=== PATIENT | female | born 1945 | race Caucasian/White ===

== ENCOUNTER 2017-11-06 10:32 | Emergency (ER) | payer MEDICARE ==
[~2017-11-06] VITALS: Ht 160 cm; Wt 56.7 kg
[~2017-11-06 10:32] MED LIST: ASPI-587 PO; BUPR200T PO; CALC-817 PO; CYAN100015 SL; DCS100C PO; DEXL60CA PO; DICY20TA10 PO; FISH1CAP15 PO; HYDR50TA3 PO; MTP50T PO; MULT-974 PO; OMEP20CA12 PO; PRAV20TA PO; PYRI100T2 PO; SIMV80TA3 PO; VITA400T9 PO
[2017-11-06] MEDS ORDERED: ASPIRIN 81 MG CHEW (CHILDREN'S ASA) PO ONE (10:45)
--- NOTE | 2017-11-06 11:02 | ED Chest Pain ---
General Stated Complaint: CHEST DISCOMFORT WHEN BREATHING-LUNG Source: patient Exam Limitations: no limitations History of Present Illness Date Seen by Provider: Nov 06, 2017 Time Seen by Provider: 10:38 Initial Comments Here with report of right-sided chest pain that hurts with deep breathing and better with rest. Onset yesterday. States that she has a history of pleurisy in the past and this feels similar. Denies nausea, vomiting, sweating, fever or other concerns. Denies any recent injury. She takes aspirin daily but has not had it today. Does have known history of hypertension and high cholesterol and takes medicines for those. Timing/Duration: 1-2 days Severity/Quality: moderate, aching, sharp Location: other (right-sided chest anterior) Radiation: back (right-sided) Activities at Onset: none Prior CP/Workup: non-cardiac ASA po HYDROLOGIST: No NTG SL HYDROLOGIST: No Associated Symptoms: No abdominal pain, back pain, No fatigue, No fever/chills , No nausea/vomiting, shortness of breath, No weakness Allergies and Home Medications Allergies Coded Allergies: Penicillins (Unverified Allergy, Intermediate, ITCHING ALL OVER, 06/06/16) Sulfa (Sulfonamide Antibiotics) (Unverified Allergy, Unknown, ITCHINESS TO LEGS, 02/27/14) Home Medications Aspirin 81 Mg Tablet.dr, 81 MG PO 1900, (Reported) Bupropion Hcl 200 Mg Tablet.sa, 200 MG PO BID, (Reported) Calcium Carb & Cit/Vitamin D3 1 Each Tablet.er, 1 TAB PO BID, (Reported) 630MG/500IU Cyanocobalamin 1,000 Mcg Tab.subl, 1,000 MCG SL DAILY, (Reported) Dexlansoprazole 60 Mg Cap..bp, 60 MG PO DAILY, (Reported) Dicyclomine HCl 20 Mg Tablet, 20 MG PO TID, (Reported) Docusate Sodium 100 Mg Capsule, 200 MG PO 1900, (Reported) Fish Oil/Dha/Epa 1 Each Capsule, 1 CAP PO DAILY, (Reported) Metoprolol Tartrate 50 Mg Tablet, 25 MG PO BID, (Reported) Multivitamin 1 Each Tablet, 1 TAB PO DAILY, (Reported) Pyridoxine Hcl 100 Mg Tablet, 100 MG PO 1900, (Reported) Simvastatin 80 Mg Tablet, 80 MG PO 1900, (Reported) Vitamin E Mixed 400 Unit Tablet, 400 UNIT PO DAILY, (Reported) Patient Home Medication List Home Medication List Reviewed: Yes Review of Systems Constitutional: see HPI, No chills, No fever EENTM: No Symptoms Reported Respiratory: See HPI Cardiovascular: Chest Pain, Denies Edema Gastrointestinal: Denies Abdominal Pain, Denies Nausea, Denies Vomiting Genitourinary: No Symptoms Reported Musculoskeletal: see HPI, back pain, muscle pain Skin: No no symptoms reported Psychiatric/Neurological: No Symptoms Reported All Other Systems Reviewed Negative Unless Noted: Yes Past Odhhjpl-Ddbprp-Nxattm Hx Patient Social History Alcohol Use: Denies Use Recreational Drug Use: No Smoking Status: Never a Smoker Recent Foreign Travel: No Contact w/Someone Who Travel: No Recent Hopitalizations: No Immunizations Up To Date Tetanus Booster (TDap): Unknown Date of Pneumonia Vaccine: May 06, 2013 Date of Influenza Vaccine: Jun 02, 2016 Seasonal Allergies Seasonal Allergies: No Surgeries History of Surgeries: Yes Surgeries: Tubal Ligation Respiratory History of Respiratory Disorde: Yes Respiratory Disorders: Asthma, COPD Cardiovascular History of Cardiac Disorders: Yes Cardiac Disorders: High Cholesterol, Hypertension 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 System Hx 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 Disorders: No Sexually Transmitted Disease: Yes HIV/AIDS: No 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 Gastrointestinal History of Gastrointestinal Di: Yes Gastrointestinal Disorders: Gastroesophageal Reflux, Ulcer Musculoskeletal Musculoskeletal Disorders: Arthritis HEENT HEENT Disorders: Cataract Psychosocial Behavioral Health Disorders: Depression Blood Transfusions Adverse Reaction to a Blood Tr: No (N/A) Reviewed Nursing Assessment Reviewed/Agree w Nursing PMH: Yes Family Medical History Significant Family History: Stroke, Vascular Disease Physical Exam Vital Signs Vital Signs - First Documented Capillary Refill : General Appearance: No Apparent Distress, WD/WN HEENT: PERRL/EOMI, Pharynx Normal Neck: Non Tender, Supple Respiratory: Lungs Clear, Normal Breath Sounds Cardiovascular: No Murmur, Tachycardia Gastrointestinal: Non Tender, Soft Extremity: Normal Range of Motion, Non Tender Neurologic/Psychiatric: Alert, Oriented x3 Skin: Normal Color, Warm/Dry Progress/Results/Core Measures Results/Orders Lab Results Laboratory Tests Test 11/06/17 11:06 Range/Units White Blood Count 6.7 4.3-11.0 10^3/uL Red Blood Count 4.66 4.35-5.85 10^6/uL Hemoglobin 14.2 11.5-16.0 G/DL Hematocrit 42 35-52 % Mean Corpuscular Volume 90 80-99 FL Mean Corpuscular Hemoglobin 31 25-34 PG Mean Corpuscular Hemoglobin Concent 34 32-36 G/DL Red Cell Distribution Width 13.0 10.0-14.5 % Platelet Count 197 130-400 10^3/uL Mean Platelet Volume 10.4 7.4-10.4 FL Neutrophils (%) (Auto) 54 42-75 % Lymphocytes (%) (Auto) 35 12-44 % Monocytes (%) (Auto) 8 0-12 % Eosinophils (%) (Auto) 2 0-10 % Basophils (%) (Auto) 1 0-10 % Neutrophils # (Auto) 3.6 1.8-7.8 X 10^3 Lymphocytes # (Auto) 2.3 1.0-4.0 X 10^3 Monocytes # (Auto) 0.5 0.0-1.0 X 10^3 Eosinophils # (Auto) 0.2 0.0-0.3 10^3/uL Basophils # (Auto) 0.0 0.0-0.1 10^3/uL Prothrombin Time 12.2 12.2-14.7 SEC INR Comment 0.9 0.8-1.4 Activated Partial Thromboplast Time 30 24-35 SEC D-Dimer < 0.27 0.00-0.49 UG/ML Sodium Level 140 135-145 MMOL/L Potassium Level 3.9 3.6-5.0 MMOL/L Chloride Level 105 98-107 MMOL/L Carbon Dioxide Level 21 21-32 MMOL/L Anion Gap 13 5-14 MMOL/L Blood Urea Nitrogen 16 7-18 MG/DL Creatinine 1.05 0.60-1.30 MG/DL Estimat Glomerular Filtration Rate 52 BUN/Creatinine Ratio 15 Glucose Level 98 70-105 MG/DL Calcium Level 9.7 8.5-10.1 MG/DL Magnesium Level 2.3 1.8-2.4 MG/DL Total Bilirubin 1.0 0.1-1.0 MG/DL Aspartate Amino Transf (AST/SGOT) 24 5-34 U/L Alanine Aminotransferase (ALT/SGPT) 18 0-55 U/L Alkaline Phosphatase 90 40-136 U/L Myoglobin 38.8 10.0-92.0 NG/ML Troponin I < 0.30 <0.30 NG/ML Total Protein 8.0 6.4-8.2 GM/DL Albumin 4.5 3.2-4.5 GM/DL My Orders Orders - ANTONETTE ALMARAZ MD Cbc With Automated Diff (11/06/17 10:45) Magnesium (11/06/17 10:45) Chest 1 View, Ap/Pa Only (11/06/17 10:45) Ekg Tracing (11/06/17 10:45) Cardiac Profile 1 (11/06/17 10:45) Comprehensive Metabolic Panel (11/06/17 10:45) Myoglobin Serum (11/06/17 10:45) Protime With Inr (11/06/17 10:45) Partial Thromboplastin Time (11/06/17 10:45) O2 (11/06/17 10:45) Monitor-Rhythm Ecg Trace Only (11/06/17 10:45) Lipid Panel (11/07/17 06:00) Aspirin Chewable Tablet (Baby Aspirin Ch (11/06/17 10:45) Saline Lock/Iv-Start (11/06/17 10:45) Fibrin Degradation Products (11/06/17 10:45) Ketorolac Injection (Toradol Injection) (11/06/17 12:39) Prednisone Tablet (Deltasone Tablet) (11/06/17 12:45) Medications Given in ED Current Medications Medications Dose Ordered Sig/Saige Route Start Time Stop Time Status Last Admin Dose Admin Aspirin 324 mg ONCE ONCE PO 11/06/17 10:45 11/06/17 10:46 DC 11/06/17 11:27 324 MG Vital Signs/I&O Vital Sign - Last 12Hours 11/06/17 11/06/17 10:37 10:37 Temp 98.5 Pulse 111 Resp 16 B/P (MAP) 169/94 (119) Pulse Ox 98 O2 Delivery Room Air Room Air Progress Note : Progress Note Seen and evaluated. IV, labs, EKG and chest x-ray ordered. ASA 324 mg by mouth ordered. Monitor patient. 1240: Improved overall. Toradol 30 mg IV and prednisone 40 mg by mouth ordered. Discharged home with return precautions. Patient verbalize understanding instructions and agreement with plan. ECG Initial ECG Impression Date: Nov 06, 2017 Initial ECG Impression Time: 10:40 Initial ECG Rate: 99 Initial ECG Rhythm: Normal Sinus Comment Sinus rhythm with normal axis. Left atrial dramatic. No evidence of ST elevation OR. Similar to previous but rate increased to 27 February 2014. Interpreted by me. Diagnostic Imaging Diagonstic Imaging: Xray Plain Films/CT/US/NM/MRI: chest Comments VIA [facility], [facility]. [place], [place] NAME: VENECIA KUMAR [facility] REC#: [id number] PT STATUS: REG ER : 1945 PHYSICIAN: ANTONETTE ALMARAZ MD ADMIT DATE: 11/06/17/ER Draft Date of Exam:11/06/17 CHEST 1 VIEW, AP/PA ONLY INDICATION: Chest pain. COMPARISON: 02/27/2014. FINDINGS: A single frontal view of the chest demonstrates normal heart size and pulmonary vascularity. The lungs show scarring and/or atelectasis projecting over the left lower lung. Otherwise, the lungs are clear. No large pleural effusion or pneumothorax is seen. The visualized osseous structures show no acute abnormalities. IMPRESSION: No acute cardiopulmonary process. Dictated on workstation # [id number] Dict: 11/06/17 1201 Trans: 11/06/17 1206 [id number] Interpreted by: VAL TAVAREZ MD Electronically signed by: Departure Impression Impression: Primary Impression: Pleuritic chest pain Disposition: 01 HOME, SELF-CARE Condition: Improved Departure-Patient Inst. Decision time for Depature: 12:43 Referrals: [facility] (PCP/Family) Primary Care Physician Patient Instructions: Chest Pain (DC), Pleuritic Chest Pain (DC) Add. Discharge Instructions: Continue home medications as directed. Follow-up with your doctor this week for recheck and further evaluation. Return for worse pain, fever, vomiting, weakness, breathing problems or other concerns as needed. Scripts Prednisone (Prednisone) 20 Mg Tab 20 MG PO DAILY, #6 TAB 0 Refills Prov: ANTONETTE ALMARAZ MD 11/06/17 ANTONETTE ALMARAZ MD Nov 06, 2017 11:01
[2017-11-06 11:17] LABS: BASOPHILS % (AUTO) 1 % (0-10); EOSINOPHILS # (AUTO) 0.2 10^3/uL (0.0-0.3); EOSINOPHILS % (AUTO) 2 % (0-10); HEMATOCRIT 42 % (35-52); HEMOGLOBIN 14.2 G/DL (11.5-16.0); LYMPHOCYTES # (AUTO) 2.3 X 10^3 (1.0-4.0); LYMPHOCYTES % (AUTO) 35 % (12-44); MEAN CORPUSCULAR HEMOGLOBIN 31 PG (25-34); MEAN CORPUSCULAR HGB CONC 34 G/DL (32-36); MEAN CORPUSCULAR VOLUME 90 FL (80-99); MEAN PLATELET VOLUME 10.4 FL (7.4-10.4); MONOCYTES # (AUTO) 0.5 X 10^3 (0.0-1.0); MONOCYTES % (AUTO) 8 % (0-12); NEUTROPHILS # (AUTO) 3.6 X 10^3 (1.8-7.8); NEUTROPHILS % (AUTO) 54 % (42-75); PLATELET COUNT 197 10^3/uL (130-400); RED BLOOD COUNT 4.66 10^6/uL (4.35-5.85); WHITE BLOOD COUNT 6.7 10^3/uL (4.3-11.0)
[2017-11-06 11:30] LABS: INR 0.9 (0.8-1.4); PROTHROMBIN TIME PATIENT 12.2 SEC (12.2-14.7)
[2017-11-06 11:40] LABS: CALCIUM 9.7 MG/DL (8.5-10.1); CHLORIDE 105 MMOL/L (98-107); MAGNESIUM 2.3 MG/DL (1.8-2.4); POTASSIUM 3.9 MMOL/L (3.6-5.0); SODIUM 140 MMOL/L (135-145)
[2017-11-06 11:48] LABS: ALANINE AMINOTRANSFERASE 18 U/L (0-55); ALBUMIN 4.5 GM/DL (3.2-4.5); ALKALINE PHOSPHATASE 90 U/L (40-136); BUN/CREATININE RATIO 15; CARBON DIOXIDE 21 MMOL/L (21-32); CREATININE SERUM 1.05 MG/DL (0.60-1.30); GFR ESTIMATED 52; GLUCOSE 98 MG/DL (70-105)
[2017-11-06 11:55] LABS: MYOGLOBIN SERUM 38.8 NG/ML (10.0-92.0)
--- NOTE | 2017-11-06 12:06 | Diagnostic Imaging Report ---
INDICATION: Chest pain. COMPARISON: 02/27/2014. FINDINGS: A single frontal view of the chest demonstrates normal heart size and pulmonary vascularity. The lungs show scarring and/or atelectasis projecting over the left lower lung. Otherwise, the lungs are clear. No large pleural effusion or pneumothorax is seen. The visualized osseous structures show no acute abnormalities. IMPRESSION: No acute cardiopulmonary process. Dictated by: Dictated on workstation # [id number]
[2017-11-06] MEDS ORDERED: KETOROLAC 30 MG/ML VIAL IVP STA (12:39)
[2017-11-06] MEDS ORDERED: PRD20T PO (12:44)
[2017-11-06] MEDS ORDERED: predniSONE 20 MG TAB PO ONE (12:45)
[2017-11-06] MEDS ORDERED: ACETAMINOPHEN 500 MG TAB (TYLENOL) PO STA (12:46)
[2017-11-06 13:00] VITALS: BP 161/81
== END 2017-11-06 13:01 | disposition home or self-care (01) ==
LOC: EDUNIT# 10:32 → ER 10:34
DX: R07.81 Pleurodynia (principal); F32.9 Major depressive disorder, single episode, unspecified; E78.00 Pure hypercholesterolemia, unspecified; I10 Essential (primary) hypertension; J44.9 Chronic obstructive pulmonary disease, unspecified; K21.9 Gastro-esophageal reflux disease without esophagitis; Z87.19 Personal history of other diseases of the digestive system; Z90.710 Acquired absence of both cervix and uterus; Z79.52 Long term (current) use of systemic steroids; Z79.82 Long term (current) use of aspirin; Z98.51 Tubal ligation status; Z88.0 Allergy status to penicillin; Z88.2 Allergy status to sulfonamides
CPT/HCPCS: 36415; 71045; 80053; 83735; 83874; 84484; 85025; 85379; 85610; 85730; 93005; 93041

== ENCOUNTER 2017-11-17 13:31 | Emergency (ER) | payer MEDICARE ==
[~2017-11-17] VITALS: Ht 160 cm; Wt 56.7 kg
[~2017-11-17 13:31] MED LIST changes: +PRD20T PO
[2017-11-17 13:50] VITALS: BP_SYST 85
--- NOTE | 2017-11-17 13:57 | ED Headache ---
General Chief Complaint: Head/Cervical Problems Stated Complaint: PAIN IN BACK OF HEAD Source: patient, family Exam Limitations: no limitations History of Present Illness Date Seen by Provider: Nov 17, 2017 Time Seen by Provider: 13:55 Initial Comments This 72-year-old white female presents with complaint of occipital headache that has been intermittently present for the last 5 days. At the time of presentation to the emergency the patient is not having a headache. However she is concerned that she has an aneurysm similar to her sister's which required operative repair. Patient denies associated fever, chills, stiff neck, photophobia, sore throat, productive cough, associated nausea vomiting or diarrhea. Patient describes the intermittent occipital headache as sharp in nature, nonradiating, and moderate in severity. Patient's past medical history includes acid disease. She has had a history of hypertension. Both are well controlled with medications. The patient had a recent episode of pleurisy successfully treated with prednisone. Allergies and Home Medications Allergies Coded Allergies: Penicillins (Unverified Allergy, Intermediate, ITCHING ALL OVER, 06/06/16) Sulfa (Sulfonamide Antibiotics) (Unverified Allergy, Unknown, ITCHINESS TO LEGS, 02/27/14) Home Medications Aspirin 81 Mg Tablet.dr, 81 MG PO 1900, (Reported) Bupropion Hcl 200 Mg Tablet.sa, 200 MG PO BID, (Reported) Calcium Carb & Cit/Vitamin D3 1 Each Tablet.er, 1 TAB PO BID, (Reported) 630MG/500IU Cyanocobalamin 1,000 Mcg Tab.subl, 1,000 MCG SL DAILY, (Reported) Dexlansoprazole 60 Mg Cap.drAdalibp, 60 MG PO DAILY, (Reported) Dicyclomine HCl 20 Mg Tablet, 20 MG PO TID, (Reported) Docusate Sodium 100 Mg Capsule, 200 MG PO 1900, (Reported) Fish Oil/Dha/Epa 1 Each Capsule, 1 CAP PO DAILY, (Reported) Metoprolol Tartrate 50 Mg Tablet, 25 MG PO BID, (Reported) Multivitamin 1 Each Tablet, 1 TAB PO DAILY, (Reported) Prednisone 20 Mg Tab, 20 MG PO DAILY Prescribed by: ANTONETTE ALMARAZ on 11/06/17 1244 Pyridoxine Hcl 100 Mg Tablet, 100 MG PO 1900, (Reported) Simvastatin 80 Mg Tablet, 80 MG PO 1900, (Reported) Vitamin E Mixed 400 Unit Tablet, 400 UNIT PO DAILY, (Reported) Patient Home Medication List Home Medication List Reviewed: Yes Review of Systems Constitutional: No chills, No fever Eyes: Denies Blurred Vision, Denies Photophobia Ears, Nose, Mouth, Throat: denies ear pain, denies epistaxis Respiratory: No cough, No short of breath Cardiovascular: No chest pain, No palpitations Gastrointestinal: No abdominal pain, No diarrhea, No nausea Genitourinary: no symptoms reported Musculoskeletal: No back pain, No neck pain Skin: No change in color, No rash Psychiatric/Neurological: No Symptoms Reported Past Zkudcgu-Klkttv-Ohhxsx Hx Patient Social History 2nd Hand Smoke Exposure: No Recent Foreign Travel: No Contact w/Someone Who Travel: No Recent Hopitalizations: No Immunizations Up To Date Tetanus Booster (TDap): Unknown Date of Pneumonia Vaccine: May 06, 2013 Date of Influenza Vaccine: Jun 02, 2016 Seasonal Allergies Seasonal Allergies: No Past Medical History Surgeries: Yes Tubal Ligation Respiratory: Yes Asthma, COPD Cardiac: Yes High Cholesterol, Hypertension Neurological: Yes (MEMORY IS IMPAIRED) 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 Sexually Transmitted Disease: Yes HIV/AIDS: No Gastrointestinal: Yes Gastroesophageal Reflux, Ulcer Musculoskeletal: Yes Arthritis Endocrine: No Cataract Cancer: No Psychosocial: Yes Depression Integumentary: No Blood Disorders: No Adverse Reaction/Blood Tranf: No (N/A) Family Medical History Reviewed Nursing Family Hx Stroke, Vascular Disease Physical Exam Vital Signs Vital Signs - First Documented 11/17/17 13:50 Temp 97.1 Pulse 96 Resp 18 B/P (MAP) 85/ Pulse Ox 97 Capillary Refill : General Appearance: WD/WN, no apparent distress HEENT: normal ENT inspection Neck: non-tender, full range of motion, supple Cardiovascular: regular rate, rhythm, no edema Respiratory: chest non-tender, lungs clear, normal breath sounds Gastrointestinal: normal bowel sounds, non tender, soft Back: normal inspection Extremities: normal range of motion, non-tender, normal inspection Psychiatric: alert, oriented x 3 Crainal Nerves: normal hearing, normal speech, PERRL Motor/Sensory: no motor deficit, no sensory deficit Skin: normal color, warm/dry Progress/Results/Core Measures Lab Results Laboratory Tests Test 11/17/17 14:07 Range/Units White Blood Count 5.8 4.3-11.0 10^3/uL Red Blood Count 4.62 4.35-5.85 10^6/uL Hemoglobin 13.9 11.5-16.0 G/DL Hematocrit 42 35-52 % Mean Corpuscular Volume 92 80-99 FL Mean Corpuscular Hemoglobin 30 25-34 PG Mean Corpuscular Hemoglobin Concent 33 32-36 G/DL Red Cell Distribution Width 13.5 10.0-14.5 % Platelet Count 199 130-400 10^3/uL Mean Platelet Volume 10.3 7.4-10.4 FL Neutrophils (%) (Auto) 45 42-75 % Lymphocytes (%) (Auto) 44 12-44 % Monocytes (%) (Auto) 9 0-12 % Eosinophils (%) (Auto) 2 0-10 % Basophils (%) (Auto) 0 0-10 % Neutrophils # (Auto) 2.6 1.8-7.8 X 10^3 Lymphocytes # (Auto) 2.5 1.0-4.0 X 10^3 Monocytes # (Auto) 0.5 0.0-1.0 X 10^3 Eosinophils # (Auto) 0.1 0.0-0.3 10^3/uL Basophils # (Auto) 0.0 0.0-0.1 10^3/uL Erythrocyte Sedimentation Rate 4 0-30 MM/HR Sodium Level 141 135-145 MMOL/L Potassium Level 3.6 3.6-5.0 MMOL/L Chloride Level 104 98-107 MMOL/L Carbon Dioxide Level 26 21-32 MMOL/L Anion Gap 11 5-14 MMOL/L Blood Urea Nitrogen 15 7-18 MG/DL Creatinine 1.18 0.60-1.30 MG/DL Estimat Glomerular Filtration Rate 45 BUN/Creatinine Ratio 13 Glucose Level 113 H 70-105 MG/DL Calcium Level 9.5 8.5-10.1 MG/DL Total Bilirubin 0.7 0.1-1.0 MG/DL Aspartate Amino Transf (AST/SGOT) 25 5-34 U/L Alanine Aminotransferase (ALT/SGPT) 26 0-55 U/L Alkaline Phosphatase 79 40-136 U/L Total Protein 8.1 6.4-8.2 GM/DL Albumin 4.6 H 3.2-4.5 GM/DL My Orders Orders - DIANE BOYD MD Cbc With Automated Diff (11/17/17 13:54) Comprehensive Metabolic Panel (11/17/17 13:54) Erythrocyte Sedimentation Rate (11/17/17 13:54) Ct Head W Wo (11/17/17 13:53) Iohexol Injection (Omnipaque 350 Mg/Ml 1 (11/17/17 14:15) Sodium Chloride Flush (Catheter Flush Sy (11/17/17 14:15) Ns (Ivpb) (Sodium Chloride 0.9%) (11/17/17 14:15) Pharmacy Communication (Pharmacy Communi (11/17/17 14:06) Ns Iv 1000 Ml (Sodium Chloride 0.9%) (11/17/17 15:15) Medications Given in ED Current Medications Medications Dose Ordered Sig/Saige Route Start Time Stop Time Status Last Admin Dose Admin Iohexol 100 ml ONCE ONCE IV 11/17/17 14:15 11/17/17 14:16 DC 11/17/17 15:47 50 ML Sodium Chloride 10 ml NEEDED PRN IV 11/17/17 14:15 11/17/17 15:48 10 ML Sodium Chloride 250 ml ONCE ONCE IV 11/17/17 14:15 11/17/17 14:16 DC 11/17/17 15:48 80 ML Vital Signs/I&O 11/17/17 13:50 Temp 97.1 Pulse 96 Resp 18 B/P (MAP) 85/ Pulse Ox 97 Progress Note : Time: 16:21 Progress Note The patient's CT of the head was unremarkable. Patient was reassured. I asked that she follow-up with her caregiver at [facility] on Sunday. I recommended that she continue to use aspirin which is improved effective for her intermittent headache. Departure Impression Primary Impression: Headache Qualified Codes: R51 - Headache Disposition: 01 HOME, SELF-CARE Condition: Unchanged Departure-Patient Inst. Decision time for Depature: 16:22 Referrals: [facility] (PCP/Family) Primary Care Physician Patient Instructions: Headache, Adult (DC) Add. Discharge Instructions: Close follow-up with [facility] on Sunday. Aspirin, ibuprofen, Tylenol for headache. Return if any problems or questions. All discharge instructions reviewed with patient and/or family. Voiced understanding. DIANE BOYD MD Nov 17, 2017 13:56
[2017-11-17] MEDS ORDERED: NS 250 ML (IVPB) BAG IV ONE (14:15)
[2017-11-17] MEDS ORDERED: CATHETER FLUSH 10 ML SYR IV PRN (14:15)
[2017-11-17] MEDS ORDERED: IOHEXOL 350 MG/ML 100 ML (OMNIPAQUE 350) VIAL IV ONE (14:15)
[2017-11-17 14:19] LABS: BASOPHILS % (AUTO) 0 % (0-10); EOSINOPHILS # (AUTO) 0.1 10^3/uL (0.0-0.3); EOSINOPHILS % (AUTO) 2 % (0-10); HEMATOCRIT 42 % (35-52); HEMOGLOBIN 13.9 G/DL (11.5-16.0); LYMPHOCYTES # (AUTO) 2.5 X 10^3 (1.0-4.0); LYMPHOCYTES % (AUTO) 44 % (12-44); MEAN CORPUSCULAR HEMOGLOBIN 30 PG (25-34); MEAN CORPUSCULAR HGB CONC 33 G/DL (32-36); MEAN CORPUSCULAR VOLUME 92 FL (80-99); MEAN PLATELET VOLUME 10.3 FL (7.4-10.4); MONOCYTES # (AUTO) 0.5 X 10^3 (0.0-1.0); MONOCYTES % (AUTO) 9 % (0-12); NEUTROPHILS # (AUTO) 2.6 X 10^3 (1.8-7.8); NEUTROPHILS % (AUTO) 45 % (42-75); PLATELET COUNT 199 10^3/uL (130-400); RED BLOOD COUNT 4.62 10^6/uL (4.35-5.85); RED CELL DISTRIBUTION WIDTH 13.5 % (10.0-14.5); WHITE BLOOD COUNT 5.8 10^3/uL (4.3-11.0)
[2017-11-17 14:37] LABS: ALBUMIN 4.6 GM/DL (3.2-4.5); BILIRUBIN,TOTAL 0.7 MG/DL (0.1-1.0); CALCIUM 9.5 MG/DL (8.5-10.1); CREATININE SERUM 1.18 MG/DL (0.60-1.30); POTASSIUM 3.6 MMOL/L (3.6-5.0); TOTAL PROTEIN 8.1 GM/DL (6.4-8.2)
[2017-11-17 14:52] LABS: ERYTHROCYTE SEDIMENTATION RATE 4 MM/HR (0-30)
[2017-11-17] MEDS ORDERED: NS IV 1000 ML 1,000 ML IV SCH (15:15)
--- NOTE | 2017-11-17 16:01 | Diagnostic Imaging Report ---
PROCEDURE: CT head with and without contrast. TECHNIQUE: Multiple contiguous axial images were obtained through the brain before and after the administration of intravenous contrast. DATE: 11/17/2017. COMPARISON: None. INDICATION: 72-year-old female, left posterior head pain for three days. FINDINGS: The ventricles and cerebral spinal fluid spaces are of normal size and configuration for the patient's age. There is no mass effect or midline shift. There is no acute intracranial hemorrhage. There is no abnormal extra-axial fluid collection. The visualized portions of the paranasal sinuses, mastoid air cells and middle ears are well aerated. IMPRESSION: No identified acute intracranial abnormality. Dictated by: Dictated on workstation # [id number]
--- OUTSIDE RECORDS SUMMARY | 2017-11-18 09:59 | XMS REPORT ---
Author Author ROSEANN PIERRE [facility] eClinicalWorks Address Unknown Phone Unavailable Care Team Providers Care Latent Fingerprint Examiner Name Role Phone ROSEANN PIERRE CP Unavailable Allergies, Adverse Reactions, Alerts Substance Reaction Event Type Sulfamethoxazole-Trimethoprim Info Not Available Drug Allergy Penicillin V Potassium Info Not Available Drug Allergy Lisinopril chronic dry cough Drug Allergy Problems Problem Type Condition Code Onset Dates Condition Status Problem Unspecified hypertrophic and atrophic condition of skin 701.9 Active Problem Generalized anxiety disorder 300.02 Active Problem Esophageal reflux 530.81 Active Problem Rhinitis, unspecified type J31.0 Active Problem Need for prophylactic vaccination and inoculation, Influenza V04.81 Active Problem Memory loss R41.3 Active Problem Pure hyperglyceridemia 272.1 Active Problem Adjustment disorder with depressed mood 309.0 Active Problem Pain in joint, shoulder region 719.41 Active Problem Unspecified gastritis and gastroduodenitis without mention of hemorrhage 535.50 Active Assessment Memory loss R41.3 Active Assessment Hypoxemia R09.02 Active Assessment Rhinitis, unspecified type J31.0 Active Assessment Arthralgia, unspecified joint M25.50 Active Problem Colon polyp K63.5 Active Problem Gastroesophageal reflux disease with esophagitis K21.0 Active Problem Hypertriglyceridemia E78.1 Active Problem Cough 786.2 Active Problem Nocturnal hypoxia G47.34 Active Problem Unspecified disorder of kidney and ureter 593.9 Active Medications Medication Code System Code Instructions Start Date End Date Status Dosage Calcium Citrate + [facility] [address] Orally not defined Ventolin HFA [facility] [address]-76 108 (90 Base) MCG/ACT Inhalation every 6 hrs 2 puffs as needed Vitamin B-6 [facility] [address]14-[address] 200 MG Orally Once a day 1 tablet Dexilant [facility] [address]-61 60 MG Orally Once a day 1 capsule Stool Softener [facility] [address]-81 100 MG Orally Once a day 3 capsule as needed BuPROPion HCl (SR) [facility] [address]-77 200 MG Orally Twice a day 1 tablet Aricept [facility] [address]-18 5 mg Orally Once a day May 15, 2016 1 tablet at bedtime Vitamin B-12 [facility] [address]-38 500 MCG Orally Once a day 2 tablets Fish Oil [facility] [address]-34 1000 MG Orally Once a day 1 capsule Simvastatin [facility] 72656909164 80MG TAKE ONE TABLET BY MOUTH ONCE DAILY Metoprolol Tartrate [facility] [address]-42 25 MG Orally Twice a day 1 tablet Fluticasone Propionate [facility] [address]-70 50 MCG/ACT Nasally twice a day May 15, 2016 1 spray in each nostril Multivitamins [facility] 76[address]29 Orally not defined Aspir-81 [facility] [address]-11 81 MG Orally Once a day 1 tablet Procedures Procedure Coding System Code Date [facility] VISIT ESTABLISHED PATIENT CPT-4 G0467 May 15, 2016 Office Visit, Est Pt., Level 3 CPT-4 24481 May 15, 2016 MEASURE BLOOD OXYGEN LEVEL CPT-4 04636 May 15, 2016 Vital Signs Date/Time: May 15, 2016 Cardiac Monitoring Heart Rate 82 bpm Weight 143.3 lbs Height 64 in BMI 24.59 Index Oximetry 97 % Blood Pressure Diastolic 64 mmHg Blood Pressure Systolic 116 mmHg Results No Known Results Summary Purpose eClinicalWorks Submission
--- OUTSIDE RECORDS SUMMARY | 2017-11-18 09:59 | XMS REPORT ---
Author Author ROSEANN PIERRE Organization e[employer] Address Unknown Phone Unavailable Care Team Providers Care Attendant Self [employer] Store Name Role Phone ROSEANN PIERRE CP Unavailable Allergies No Known Allergies Problems Problem Type Condition Code Onset Dates [...] gastroduodenitis without mention of hemorrhage 535.50 Active Problem Colon polyp K63.5 Active Problem Gastroesophageal reflux disease with esophagitis K21.0 Active Problem Hypertriglyceridemia E78.1 Active Problem Cough 786.2 Active Problem Nocturnal hypoxia G47.34 Active Problem Unspecified disorder of kidney and ureter 593.9 Active Medications No Known Medications Results No Known Results Summary Purpose eClinicalWorks Submission
--- OUTSIDE RECORDS SUMMARY | 2017-11-18 09:59 | XMS REPORT ---
Author Author ROSEANN PIERRE [facility] eClinicalWorks Address Unknown Phone Unavailable Care Team Providers Care Cutter In Name Role Phone ROSEANN PIERRE CP Unavailable Allergies, Adverse Reactions, Alerts Substance Reaction Event Type Sulfamethoxazole-Trimethoprim Info Not Available Drug Allergy Penicillin V Potassium Info Not Available Drug Allergy Lisinopril chronic dry cough Drug Allergy Problems Problem Type Condition Code Onset Dates Condition Status Problem Cough 786.2 Active Problem Unspecified hypertrophic and atrophic condition of skin 701.9 Active Problem Unspecified disorder of kidney and ureter 593.9 Active Problem Pain in joint, shoulder region 719.41 Active Problem Unspecified gastritis and gastroduodenitis without mention of hemorrhage 535.50 Active Problem Need for prophylactic vaccination and inoculation, Influenza V04.81 Active Problem Generalized anxiety disorder 300.02 Active Problem Esophageal reflux 530.81 Active Problem Pure hyperglyceridemia 272.1 Active Problem Adjustment disorder with depressed mood 309.0 Active Assessment Fatigue, unspecified type R53.83 Active Assessment Gastroesophageal reflux disease without esophagitis K21.9 Active Assessment Acute idiopathic gout, unspecified site M10.00 Active Problem Nocturnal hypoxia G47.34 Active Assessment Hyperlipidemia, unspecified hyperlipidemia E78.5 Active Problem Colon polyp K63.5 Active Assessment Encounter for immunization Z23 Active Problem Gastroesophageal reflux disease with esophagitis K21.0 Active Medications Medication Code System Code Instructions Start Date End Date Status Dosage Bentyl [facility] 30877692603 20MG Orally Four times a day before meals and bedtime 1 tablet Multivitamins [facility] 89367-96693 Orally not defined Dexilant [facility] 04924522246 60[address] DR Orally Once a day 1 capsule Stool Softener [facility] [address]-33 100 MG Orally Once a day 3 capsule as needed Fish Oil [facility] [address]-14 1000 MG Orally Once a day 1 capsule Calcium Citrate + [facility] 04902-70570 Orally not defined BuPROPion HCl (SR) [facility] 16053476239 200MG TAKE ONE TABLET BY MOUTH TWICE DAILY Ventolin HFA [facility] [address]-95 108 (90 Base) MCG/ACT Inhalation every 6 hrs 2 puffs as needed Aspir-81 [facility] [address]-03 81 MG Orally Once a day 1 tablet Lorazepam [facility] [address]-35 0.5 mg December 08, 2013 by Oral route 2 times per day PRN take bid prn for anxiety Metoprolol Tartrate [facility] 22057854298 50MG TAKE ONE TABLET BY MOUTH TWICE DAILY Indocin [facility] [address]-25 25 MG Orally Three times a day Jun 16, 2015 Jun 23, 2015 1 capsule with food Hydrochlorothiazide [facility] 52863659307 50 MG Orally Once a day 1 tablet by Oral route 1 time per day Simvastatin [facility] 95993097224 80MG TAKE ONE TABLET BY MOUTH ONCE DAILY Procedures Procedure Coding System Code Date [facility] VISIT ESTABLISHED PATIENT CPT-4 G0467 Jun 16, 2015 Office Visit, Est Pt., Level 3 CPT-4 09972 Jun 16, 2015 [facility] NOBLL Jun 16, 2015 SINGLE IMMUNIZATION ADMIN CPT-4 02888 Jun 16, 2015 FLUARIX QUAD (3 & UP)-[employer]-2014 CPT-4 05564 Jun 16, 2015 VENIPUNCT, ROUTINE* CPT-4 66010 Jun 16, 2015 Vital Signs Date/Time: Jun 16, 2015 Temperature 98.0 F Weight 144 lbs Height 64 in BMI 24.71 Index Blood Pressure Diastolic 72 mmHg Blood Pressure Systolic 120 mmHg Cardiac Monitoring Heart Rate 78 bpm Results Name Result Date Reference Range Unit Abnormality Flag ROUTINE VENIPUNCTURE TSH Immunizations Vaccine Administration Date FLUARIX QUAD (3 & UP)-GSK-2014Jun 16, 2015 Summary Purpose eClinicalWorks Submission
--- OUTSIDE RECORDS SUMMARY | 2017-11-18 09:59 | XMS REPORT ---
Author Author ROSEANN PIERRE [facility] eClinicalWorks Address Unknown Phone Unavailable Care Team Providers Care Product Designer Name Role Phone ROSEANN PIERRE CP Unavailable [...] disorder with depressed mood 309.0 Active Problem Hypertriglyceridemia E78.1 Active Problem Nocturnal hypoxia G47.34 Active Problem Colon polyp K63.5 Active Assessment Forgetfulness R68.89 Active Problem Gastroesophageal reflux disease with esophagitis K21.0 Active Medications Medication Code System Code Instructions Start Date End Date Status Dosage Calcium Citrate + [facility] 22939-49546 Orally not defined Multivitamins [facility] 50968-84480 Orally not defined Simvastatin [facility] 28360736743 80MG TAKE ONE TABLET BY MOUTH ONCE DAILY Ventolin HFA [facility] [address]-79 108 (90 Base) MCG/ACT Inhalation every 6 hrs 2 puffs as needed BuPROPion HCl (SR) [facility] [address]-08 200 MG Orally Twice a day 1 tablet Vitamin B-6 [facility] 43430-14025 200 MG Orally Once a day 1 tablet Dexilant [facility] [address]-27 60 MG Orally Once a day 1 capsule Hydrochlorothiazide [facility] [address]-31 25 MG Orally Once a day 1 tablet Stool Softener [facility] [address]-79 100 MG Orally Once a day 3 capsule as needed Aspir-81 [facility] [address]-50 81 MG Orally Once a day 1 tablet Fish Oil [facility] [address]-55 1000 MG Orally Once a day 1 capsule Vitamin B-12 [facility] [address]-30 500 MCG Orally Once a day 2 tablets Metoprolol Tartrate [facility] [address]-29 25 MG Orally Twice a day 1 tablet Procedures Procedure Coding System Code Date Office Visit, Est Pt., Level 3 CPT-4 00538 February 10, 2016 [facility] VISIT ESTABLISHED PATIENT CPT-4 G0467 February 10, 2016 Vital Signs Date/Time: February 10, 2016 Cardiac Monitoring Heart Rate 68 bpm Weight 143.8 lbs Height 64 in BMI 24.68 Index Blood Pressure Diastolic 70 mmHg Blood Pressure Systolic 124 mmHg Results No Known Results Summary Purpose eClinicalWorks Submission
--- OUTSIDE RECORDS SUMMARY | 2017-11-18 09:59 | XMS REPORT ---
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9 Active 782573277 Problem Hyperlipidemia, unspecified hyperlipidemia E78.5 Active 72635146 ALLERGIES No Information ENCOUNTERS Encounter Location Date Diagnosis [place] [address] [place] [address]405- 1465 Nov, [place] [address] [place] [id number] [place] [address] 97240- 8275 14 Oct, 2017 Hypoxemia R09.02 and Fatigue, unspecified type R53.83 [place] [address] [place] [id number] [place] [address] 65222- 0742 12 Sep, 2017 Other chronic gastritis without hemorrhage K29.50 ; Gastroesophageal reflux disease without esophagitis K21.9 ; Hyperlipidemia, unspecified hyperlipidemia E78.5 and Arthralgia, unspecified joint M25.50 [place] [address] [address]- [address] Aug, Hypertriglyceridemia E78.1 [place] [address] [place] [id number] [place] [address] 54251- 2525 May, Anxiety F41.9 [place] [address] [place] [id number] [place] [address] 46779- 9158 Apr, Hyperlipidemia, unspecified hyperlipidemia E78.5 ; Gastroesophageal reflux disease without esophagitis K21.9 ; Forgetfulness R68.89 ; Essential hypertension I10 and Anxiety F41.9 [place] [address] [place] [id number] [place] [address] 20553- 6197 14 Apr, 2017 Hypertriglyceridemia E78.1 [place] [address] [place] [id number] [place] [address] 96493- 8307 30 Mar, 2017 Medicare annual wellness visit, subsequent Z00.00 ; Hyperlipidemia, unspecified hyperlipidemia E78.5 and Essential hypertension I10 [place] [address] [place] [id number] [place] [address] 72988- 0358 Mar, Forgetfulness R68.89 ; Fatigue, unspecified type R53.83 and Essential hypertension I10 [place] [address] [place] [id number] [place] [address] 92689- 1714 Mar, Primary osteoarthritis, 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 and Strain of left trapezius muscle, initial encounter S46.812A [place] [address] [place] [id number] [place] [address] 70193- 9395 Feb, Left wrist pain M25.532 [place] [address] [place] [id number] [place] [address] 95795- 0873 Feb, Left wrist pain M25.532 [place] [address] [place] [id number] [place] [address] 47780- 8683 December, Hypertriglyceridemia E78.1 ; Encounter for immunization Z23 ; Forgetfulness R68.89 and Fatigue, unspecified type R53.83 [place] [address] [place] [address] 52059- 2778 Jun, Forgetfulness R68.89 and Rhinitis, unspecified type J31.0 [place] [address] [place] [id number] [place] [address] 46501- 3069 May, [place] [address] [place] [id number] [place] [address] 12006- 1229 May, Hypoxemia R09.02 ; Memory loss R41.3 ; Arthralgia, unspecified joint M25.50 and Rhinitis, unspecified type J31.0 [place] [address] [place] [id number] [place] [address] 85078- 8532 Mar, Vertigo R42 ; Orthostatic hypotension I95.1 and Chronic gastritis without bleeding, unspecified gastritis type K29.50 [place] [address] [place] [id number] [place] [address] 37837- 8702 Feb, [place] [address] [place] [id number] [place] [address] 57413- 1500 Feb, Forgetfulness R68.89 [place] [address] [place] [id number] [place] [address] 92221- 1963 Jan, [place] [address] [place] [id number] [place] [address] 18433- 6507 Jan, Gastroesophageal reflux disease without esophagitis K21.9 ; Fatigue, unspecified type R53.83 ; Weakness R53.1 ; Forgetfulness R68.89 ; Hyperlipidemia, unspecified hyperlipidemia E78.5 and Hearing abnormally acute, unspecified laterality H93.239 [place] [address] [place] [id number] [place] [address] 33701- 4149 Oct, [place] [address] [place] [id number] [place] [address] 08752- 7724 Aug, Upper respiratory tract infection, unspecified type J06.9 [place] [address] [place] [id number] [place] [address] 61465- 6539 Aug, [place] [address] [place] [id number] [place] [address] 56781- 1416 Jun, Acute idiopathic gout, unspecified site M10.00 ; Encounter for immunization Z23 ; Hyperlipidemia, unspecified hyperlipidemia E78.5 ; Gastroesophageal reflux disease without esophagitis K21.9 and Fatigue, unspecified type R53.83 [place] [address] 32542- 7007 17 Jan, 2015 Esophageal reflux 530.81 and Irritable bowel syndrome 564.1 [place] [address] 66892- 0447 15 Jan, 2015 [place] [address] 05307- 7853 10 Jan, 2015 Gastritis 535.50 ; Hx of colonic polyp V12.72 and Positional vertigo 386.11 [place] [address] 62449- 7529 09 Jan, 2015 [place] [address] 01063- 9251 04 Jan, 2015 Dizziness 780.4 and Nausea & vomiting 787.01 [place] [address] 43303- 8863 Nov, [place] [address] 92880- 8600 Nov, [place] [address] 10689- 5138 Nov, [place] [address] [place] [id number] [place] [address] 21076- 3778 13 Nov, 2014 [place] [address] 22799- 4711 16 Oct, 2014 [place] [address] 23073- 8930 Oct, [place] [address] 68385- 4900 Oct, [place] [address] 15513- 4284 Aug, [facility] [place] [facility] [address] [id number] [place] [address]- 8846 Aug, [facility] [place] [facility] [address] [id number] [place] [address]- 1160 Aug, [facility] [place] [facility] [address] [id number] [place] [address]- 2874 Jul, [facility] [place] [facility] [address] [id number] [place] [address]- 6491 Jul, [facility] [place] [facility] [address] [id number] [place] [address]- 4182 Jul, [facility] [place] [facility] [address] [id number] [place] [address]- 9622 Jul, [facility] [place] [facility] [address] [id number] [place] [address]- 7478 Jul, [facility] [place] [facility] [address] [id number] [place] [address]- 5139 Jul, [facility] [place] [facility] [address] [id number] [place] [address]- 3574 Jul, [facility] [place] [facility] [address] [id number] [place] [address]- 2277 Jul, [facility] [place] [facility] [address] [id number] [place] [address]- 2124 Jul, [facility] [place] [facility] [address] [id number] [address]- 2544 Jul, [facility] [place] [facility] [address] [id number] [place] [address]- 6986 Jul, [facility] [place] [facility] [address] [id number] [place] [address]- 1123 Jun, [facility] [place] [facility] [address] [id number] [place] [address]- 4501 Jun, [facility] [place] [facility] [address] [id number] [place] [address]- 2282 Jun, [facility] [place] [facility] [address] [id number] [place] [address]- 2229 Jun, [facility] [place] [facility] [address] [id number] [place] [address]- 4374 17 Apr, 2014 [facility] [place] [facility] [address] [id number] [place] [address]- 7881 Apr, [facility] [place] [facility] [address] [id number] [place] [address]- 4856 Apr, [facility] [place] [facility] [address] [id number] [place] [address]- 5918 Apr, [facility] [place] [facility] [address] [id number] [place] [address]- 4269 Feb, [facility] [place] [facility] [address] [id number] [place] [address]- 2216 Feb, [facility] [place] [facility] [address] [id number] [place] [address]- 8079 Feb, [facility] [place] [facility] [address] [id number] [place] [address]- 1661 Feb, [facility] [place] [facility] [address] [id number] [place] [address]- 8370 Jan, [facility] [place] [facility] [address] [id number] [place] [address]- 6916 Jan, [facility] [place] [facility] [address] [id number] [place] [address]- 0662 Jan, [facility] [place] [facility] [address] [id number] [place] [address]- 2927 Jan, [facility] [place] [facility] [address] [id number] [place] [address]- 0416 December, [facility] [place] [facility] [address] [id number] [place] 9510 December, [facility] [place] [facility] [address] [id number] [place] [address]- 0132 December, [facility] [place] [facility] [address] [id number] [place] [address]- 5578 December, [facility] [place] [facility] [address] [id number] [place] [address]- 8479 December, [facility] [place] [facility] [address] [id number] [place] [address]- 8823 December, [facility] [place] [facility] [address] [id number] [place] [address]- 7180 Oct, [facility] [place] [facility] [address] [id number] [place] [address]- 1742 Oct, [facility] [place] [facility] [address] [id number] [place] [address]- 5327 Sep, [facility] [place] [facility] [address] [id number] [place] [address]- 6279 Sep, [facility] [place] [facility] [address] [id number] [place] [address]- 0245 Aug, [facility] [place] [facility] [address] [id number] [place] [address]- 9622 Aug, [facility] [place] [facility] [address] [id number] [place] [address]- 3069 Jul, [facility] [place] [facility] [address] [id number], [place] [address]- 0426 Jul, [facility] [place] [facility] [address] [id number] [place] [address]- 6353 May, [facility] [place] [facility] [address] [id number] [place] [address]- 2035 May, [facility] [place] [facility] [address] [id number], [place] [address]- 8407 May, [facility] [place] [facility] [address] [id number], [place] [address]- 6443 Apr, [facility] [address] [id number] [place] [address]- 4671 Feb, [facility] [address] [id number] [place] [address]- 6016 Feb, [facility] [address] [id number] [place] [address]- 6251 Feb, [facility] [address] [id number] [place] [address]- 7209 Feb, [facility] [address] [id number] [place] [address]- 6838 Jan, [facility] [address] [id number] [place] [address]- 2734 Jan, [facility] [address] [id number] [place] [address]- 8870 December, [facility] [address] [id number] [place] [address]- 1422 Nov, [facility] [address] [id number] [place] [address]- 8636 Nov, [facility] [address] [id number] [place] [address]- 8591 Oct, [facility] [address] [id number] [place] [address]- 0665 Oct, [facility] [place] [facility] [address] [id number] [place] [address]- 6704 Oct, [facility] [place] [facility] [address] [id number] [place] [address]- 7927 Aug, [facility] [place] [facility] [address] [id number] [place] [address]- 0068 Aug, [facility] [place] [facility] [address] [id number] [place] [address]- 9829 Jul, [facility] [place] [facility] [address] [id number] [place] [address] 2546 Jul, [facility] [place] [facility] [address] [id number] [place] [address]- 8096 Jul, [facility] [place] [facility] [address] [id number] [place] [address]- 2546 Jul, [facility] [place] [facility] [address] [id number] [place] [address]- 6416 Jun, [facility] [place] [facility] [address] [id number] [place] [address] 2546 Jun, [facility] [place] [facility] [address] [id number] [place] [address]- 2546 May, [facility] [place] [facility] [address] [id number] [place] [address]- 3646 Mar, [facility] [place] [facility] [address] [id number] [place] [address]- 6076 Mar, [facility] [place] [facility] [address] [id number] [place] [address]- 8062 Jan, [facility] [place] [facility] [address] [id number] [place] [address]- 5436 Jan, [facility] [place] [facility] [address] [facility] [id number] [place] [address]- 1746 December, [facility] [place] [facility] [address] [id number] [place] [address]- 2546 December, [facility] [place] [facility] [address] [id number] [place] [address]- 2546 December, [facility] [place] [facility] [address] [id number] [place] [address]- 2546 December, [facility] [place] [facility] [address] [id number] [place] [address]- 2546 Sep, [facility] [place] [facility] [address] [id number] [place] [address]- 3789 13 Sep, 2011 [facility] [id number] [address]- 4563 14 Jun, 2011 [facility] [address] [address]- 2262 14 Jun, 2011 [facility] [address] [address]- 8395 18 May, 2011 [facility] [address] [id number] [address]- 8311 Feb, [facility] [address] [address]- 4932 Mar, [facility] [address] [place] [address] 66434- 1355 Nov, [facility] [address] [address]- 6864 Sep, [facility] [address] [address]- 7766 Jun, [facility] [address] [address]- 5620 Jun, [facility] [address] [address]- 2897 May, [facility] [address] [address]- 6757 Mar, [facility] [address] [address]- 3380 December, IMMUNIZATIONS No Known Immunizations SOCIAL HISTORY Never Assessed REASON FOR VISIT Wrist Pain PLAN OF CARE VITAL SIGNS MEDICATIONS Unknown Medications RESULTS No Results PROCEDURES No Known procedures INSTRUCTIONS MEDICATIONS ADMINISTERED No Known Medications MEDICAL (GENERAL) HISTORY Type Description Date Medical History hearing loss Medical History hypertension Medical History emphysema Medical History COPD Medical History gastric ulcer Medical History gallbladder disease Medical History GERD Medical History osteoporosis Medical History arthritis Medical History backache Medical History anxiety Medical History depression Medical History Nocturnal hypoxia Surgical History orthopedic surgery-left total knee replacement Surgical History tubal ligation Surgical History intracapsular cataract extraction with insertion of intraocular lens prosthesis Surgical History cataract removed from left eye 04/2013 Surgical History colonoscopy - small gastric polyp. Dr Rush 04/2015 Hospitalization History Hospitalization for surgery only
--- OUTSIDE RECORDS SUMMARY | 2017-11-18 10:00 | XMS REPORT ---
Author Author ROSEANN PIERRE Organization [facility] Address [address] [place] [address] Care Team Providers Care Percher Name Role Phone ROSEANN PIERRE Unavailable PROBLEMS Type Condition ICD9-CM Code [id number] Code Onset Dates Condition Status SNOMED Code Problem Nocturnal hypoxia G47.34 Active 170643886 Problem Rhinitis, unspecified type J31.0 Active 95704525 Problem Memory loss R41.3 Active 93933897 Problem Hypertriglyceridemia E78.1 Active 031672062 Problem Colon polyp K63.5 Active 46248158 Problem Gastroesophageal reflux disease with esophagitis K21.0 Active 792698344 Problem Anxiety F41.9 Active 22953049 Problem Gastroesophageal reflux disease without esophagitis K21.9 Active 482448855 Problem Essential hypertension I10 Active 56131273 Problem Primary osteoarthritis, 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 Active 469725005 Problem Hyperlipidemia, unspecified hyperlipidemia E78.5 Active 17787854 Problem Medicare annual wellness visit, subsequent Z00.00 Active 419212502 ALLERGIES Substance Reaction Event Type Date Status Sulfamethoxazole-Trimethoprim Unknown Drug Allergy December, Active Penicillin V Potassium Unknown Drug Allergy December, Active Lisinopril chronic dry cough Drug Allergy December, Active SOCIAL HISTORY Never Assessed PLAN OF CARE Activity Details Follow Up 3 Months Reason:forgetfulness VITAL SIGNS Height 64 in 2016-12-11 Weight 140.2 lbs 2016-12-11 Temperature 98.1 degrees Fahrenheit 2016-12-11 Heart Rate 72 bpm 2016-12-11 Respiratory Rate 20 2016-12-11 BMI 24.06 kg/m2 2016-12-11 Blood pressure systolic 142 mmHg 2016-12-11 Blood pressure diastolic 82 mmHg 2016-12-11 MEDICATIONS Medication Instructions Dosage Frequency Start Date End Date Duration Status Aspir-81 81 MG Orally Once a day 1 tablet 24h Active Ventolin HFA 108 (90 Base) MCG/ACT Inhalation every 6 hrs 2 puffs as needed 6h Active Simvastatin 40 MG Orally Once a day 1 tablet in the evening 24h 90 days Active Stool Softener 100 MG Orally Once a day 3 capsule as needed 24h Active Multi Vitamin/Minerals - Active Fish Oil 1200 MG Orally Once a day 1 capsule 24h Active Metoprolol Tartrate 50 MG Orally Twice a day 0.5 tablet 12h Active Aricept 10 MG Orally Once a day 1 tablet at bedtime 24h May, 90 days Active BuPROPion HCl (SR) 200 MG Orally Twice a day 0.5 tablet 12h Active Fluticasone Propionate 50 MCG/ACT Nasally twice a day 1 spray in each nostril 12h May, Active Dexilant 60 MG Orally Once a day 1 capsule 24h Active Calcium + D3 600-200 MG-UNIT Orally Once a day 1 tablet with a meal 24h Active RESULTS No Results PROCEDURES Procedure Date Ordered Result Body Site [facility] VISIT ESTABLISHED PATIENT December 11, 2016 SINGLE IMMUNIZATION ADMIN December 11, 2016 PCV 13 December 11, 2016 IMMUNIZATIONS Vaccine Route Administration Date Status PCV 13 IM Intramuscular December 11, 2016 Administered MEDICAL (GENERAL) HISTORY Type Description Date Medical [...]
--- OUTSIDE RECORDS SUMMARY | 2017-11-18 10:00 | XMS REPORT ---
Author Author ROSEANN PIERRE Organization [employer] Address Unknown Phone Unavailable Care Team Providers Care Wool Classer Name Role Phone ROSEANN PIERRE CP Unavailable [...] G47.34 Active Problem Colon polyp K63.5 Active Problem Gastroesophageal reflux disease with esophagitis K21.0 Active Medications No Known Medications Results No Known Results Summary Purpose [employer] Submission
--- OUTSIDE RECORDS SUMMARY | 2017-11-18 10:00 | XMS REPORT ---
Author Author ROSEANN PIERRE Organization [employer] Address Unknown Phone Unavailable Care Team Providers Care Electrician Apprentice [employer]house Name Role Phone ROSEANN PIERRE CP Unavailable [...] disorder with depressed mood 309.0 Active Problem Nocturnal hypoxia G47.34 Active Problem Colon polyp K63.5 Active Problem Gastroesophageal reflux disease with esophagitis K21.0 Active Medications No Known Medications Results No Known Results Summary Purpose [facility] [facility] Submission
--- OUTSIDE RECORDS SUMMARY | 2017-11-18 10:00 | XMS REPORT ---
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 Medications Medication Code System Code Instructions Start Date End Date Status Dosage Fluticasone Propionate [facility] [address]-88 50 MCG/ACT Nasally twice a day May 15, 2016 1 spray in each nostril BuPROPion HCl (SR) [facility] [address]-16 200 MG Orally Twice a day 1 tablet Vitamin B-12 [facility] [address]-85 500 MCG Orally Once a day 2 tablets Ventolin HFA [facility] [address]-26 108 (90 Base) MCG/ACT Inhalation every 6 hrs 2 puffs as needed Aricept [facility] [address]-08 5 mg Orally Once a day May 15, 2016 1 tablet at bedtime Dexilant [facility] [address]-58 60 MG Orally Once a day 1 capsule Aspir-81 [facility] [address]-45 81 MG Orally Once a day 1 tablet Multivitamins [facility] 08[address] Orally not defined Fish Oil [facility] [address]-70 1000 MG Orally Once a day 1 capsule Simvastatin [facility] 56974632452 80MG TAKE ONE TABLET BY MOUTH ONCE DAILY Metoprolol Tartrate [facility] [address]-41 25 MG Orally Twice a day 1 tablet Calcium Citrate + [facility] 97253-[address] Orally not defined Stool Softener [facility] [address]-14 100 MG Orally Once a day 3 capsule as needed Vitamin B-6 [facility] 617[address]6917 200 MG Orally Once a day 1 tablet Procedures Procedure Coding System Code Date Office Visit, Est Pt., Level 3 CPT-4 83830 Jun 15, 2016 [facility] VISIT ESTABLISHED PATIENT CPT-4 G0467 Jun 15, 2016 Vital Signs Date/Time: Jun 15, 2016 Cardiac Monitoring Heart Rate 74 bpm Weight 141.4 lbs Height 64 in BMI 24.27 Index Blood Pressure Diastolic 64 mmHg Blood Pressure Systolic 112 mmHg Results No Known Results Summary Purpose [employer] Submission
--- OUTSIDE RECORDS SUMMARY | 2017-11-18 10:01 | XMS REPORT | Continuity of Care Document ---
Author Author [facility] Address Unknown Phone Unavailable Allergies Active Description Code Type Severity Reaction Onset Reported/Identified Relationship to Patient Clinical Status Yes Penicillins Drug Allergy N/A N/A 09/14/2008 Yes Penicillins Drug Allergy 09/14/2008 Yes Fosamax Drug Allergy N/A N/A 06/16/2009 Yes Fosamax Drug Allergy 06/16/2009 Yes Sulfa(Sulfonamide Antibiotics) Drug Allergy N/A N/A 09/18/2011 Yes Sulfa(Sulfonamide Antibiotics) Drug Allergy 09/18/2011 Yes lisinopril Drug Allergy N/A N/A 04/01/2012 Yes lisinopril Drug Allergy 04/01/2012 Yes PCN PCN Mild ITCHINESS ALL O 02/27/2014 Yes Sulfa (Sulfonamide Antibiotics) [id number] Drug Allergy Unknown ITCHINESS TO LE 02/27/2014 Yes Penicillins [id number] Drug Allergy Moderate ITCHING ALL OVE 06/06/2016 Medications There is no data. Problems Date Dx Coded Attending Type Code Diagnosis Diagnosed By 04/17/2008 401.1 HYPERTENSION, BENIGN ESSENTIAL 04/17/2008 535.50 Gastritis Unspec 04/17/2008 780.1 Hallucinations 04/17/2008 GABBY LEYVA ROSEANN S 401.1 HYPERTENSION, BENIGN ESSENTIAL 04/17/2008 GABBY CRM MARKETING ANALYST, ROSEANN S 535.50 Gastritis Unspec 04/17/2008 GABBY CRM MARKETING ANALYST, ROSEANN S 780.1 Hallucinations 04/17/2008 GABBY HALLN, ROSEANN S 401.1 HYPERTENSION, BENIGN ESSENTIAL 04/17/2008 GABBY CRM MARKETING ANALYST, ROSEANN S 535.50 Gastritis Unspec 04/17/2008 GABBY HALLN, ROSEANN S 780.1 Hallucinations 04/17/2008 GABBY HALLN, ROSEANN S 401.1 HYPERTENSION, BENIGN ESSENTIAL 04/17/2008 GABBY LEYVA ROSEANN S 535.50 Gastritis Unspec 04/17/2008 GABBY CRM MARKETING ANALYST, ROSEANN S 780.1 Hallucinations 04/17/2008 401.1 HYPERTENSION, BENIGN ESSENTIAL 04/17/2008 535.50 Gastritis Unspec 04/17/2008 780.1 Hallucinations 04/17/2008 401.1 HYPERTENSION, BENIGN ESSENTIAL 04/17/2008 535.50 Gastritis Unspec 04/17/2008 780.1 Hallucinations 04/17/2008 GABBY CRM MARKETING ANALYST, ROSEANN S 401.1 HYPERTENSION, BENIGN ESSENTIAL 04/17/2008 GABBY CRM MARKETING ANALYST, ROSEANN S 535.50 Gastritis Unspec 04/17/2008 GABBY CRM MARKETING ANALYST, ROSEANN S 780.1 Hallucinations 04/17/2008 GABBY CRM MARKETING ANALYST, ROSEANN S 401.1 HYPERTENSION, BENIGN ESSENTIAL 04/17/2008 GABBY CRM MARKETING ANALYST, ROSEANN S 535.50 Gastritis Unspec 04/17/2008 GABBY CRM MARKETING ANALYST, ROSEANN S 780.1 Hallucinations 04/17/2008 GABBY LEYVA, ROSEANN S 401.1 HYPERTENSION, BENIGN ESSENTIAL 04/17/2008 GABBY LEYVA, ROSEANN S 535.50 Gastritis Unspec 04/17/2008 GABBY CRM MARKETING ANALYST, ROSEANN S 780.1 Hallucinations 04/17/2008 GABBY HALLN, ROSEANN S 401.1 HYPERTENSION, BENIGN ESSENTIAL 04/17/2008 GABBY CRM MARKETING ANALYST, ROSEANN S 535.50 Gastritis Unspec 04/17/2008 GABBY CRM MARKETING ANALYST, ROSEANN S 780.1 Hallucinations 04/17/2008 GABBY LEYVA, ROSEANN S 401.1 HYPERTENSION, BENIGN ESSENTIAL 04/17/2008 GABBY HALLN, ROSEANN S 535.50 Gastritis Unspec 04/17/2008 GABBY HALLN, ROSEANN S 780.1 Hallucinations 04/17/2008 GABBY CRM MARKETING ANALYST, ROSEANN S 401.1 HYPERTENSION, BENIGN ESSENTIAL 04/17/2008 GABBY LEYVA, ROSEANN S 535.50 Gastritis Unspec 04/17/2008 GABBY LEYVA, ROSEANN S 780.1 Hallucinations 04/17/2008 FAVIOLA DE LA ROSA APRN 401.1 HYPERTENSION, BENIGN ESSENTIAL 04/17/2008 FAVIOLA DE LA ROSA APRN 535.50 Gastritis Unspec 04/17/2008 FAVIOLA DE LA ROSA APRN 780.1 Hallucinations 07/08/2008 780.52 Insomnia Unspecified 07/08/2008 V58.69 Medication High Risk 07/08/2008 GABBY CRM MARKETING ANALYST, ROSEANN S 780.52 Insomnia Unspecified 07/08/2008 GABBY CRM MARKETING ANALYST, ROSEANN S V58.69 Medication High Risk 07/08/2008 GABBY CRM MARKETING ANALYST, ROSEANN S 780.52 Insomnia Unspecified 07/08/2008 GABBY CRM MARKETING ANALYST, ROSEANN S V58.69 Medication High Risk 07/08/2008 GABBY CRM MARKETING ANALYST, ROSEANN S 780.52 Insomnia Unspecified 07/08/2008 GABBY CRM MARKETING ANALYST, ROSEANN S V58.69 Medication High Risk 07/08/2008 780.52 Insomnia Unspecified 07/08/2008 V58.69 Medication High Risk 07/08/2008 780.52 Insomnia Unspecified 07/08/2008 V58.69 Medication High Risk 07/08/2008 GABBY CRM MARKETING ANALYST, ROSEANN S 780.52 Insomnia Unspecified 07/08/2008 GABBY CRM MARKETING ANALYST, ROSEANN S V58.69 Medication High Risk 07/08/2008 GABBY CRM MARKETING ANALYST, ROSEANN S 780.52 Insomnia Unspecified 07/08/2008 GABBY CRM MARKETING ANALYST, ROSEANN S V58.69 Medication High Risk 07/08/2008 GABBY CRM MARKETING ANALYST, ROSEANN S 780.52 Insomnia Unspecified 07/08/2008 GABBY CRM MARKETING ANALYST, ROSEANN S V58.69 Medication High Risk 07/08/2008 GABBY CRM MARKETING ANALYST, ROSEANN S 780.52 Insomnia Unspecified 07/08/2008 GABBY CRM MARKETING ANALYST, ROSEANN S V58.69 Medication High Risk 07/08/2008 GABBY CRM MARKETING ANALYST, ROSEANN S 780.52 Insomnia Unspecified 07/08/2008 GABBY CRM MARKETING ANALYST, ROSEANN S V58.69 Medication High Risk 07/08/2008 GABBY CRM MARKETING ANALYST, ROSAENN S 780.52 Insomnia Unspecified 07/08/2008 GABBY CRM MARKETING ANALYST, ROSEANN S V58.69 Medication High Risk 07/08/2008 FAVIOLA DE LA ROSA APRN 780.52 Insomnia Unspecified 07/08/2008 FAVIOLA DE LA ROSA APRN V58.69 Medication High Risk 06/16/2009 733.00 OSTEOPOROSIS , UNSPECIFIED 06/16/2009 GABBY CRM MARKETING ANALYST, ROSEANN S 733.00 OSTEOPOROSIS, UNSPECIFIED 06/16/2009 GABBY CRM MARKETING ANALYST, ROSEANN S 733.00 OSTEOPOROSIS, UNSPECIFIED 06/16/2009 GABBY CRM MARKETING ANALYST, ROSEANN S 733.00 OSTEOPOROSIS, UNSPECIFIED 06/16/2009 733.00 OSTEOPOROSIS , UNSPECIFIED 06/16/2009 733.00 OSTEOPOROSIS , UNSPECIFIED 06/16/2009 GABBY CRM MARKETING ANALYST, ROSEANN S 733.00 OSTEOPOROSIS, UNSPECIFIED 06/16/2009 GABBY CRM MARKETING ANALYST, ROSEANN S 733.00 OSTEOPOROSIS, UNSPECIFIED 06/16/2009 GABBY CRM MARKETING ANALYST, ROSEANN S 733.00 OSTEOPOROSIS, UNSPECIFIED 06/16/2009 GABBY CRM MARKETING ANALYST, ROSEANN S 733.00 OSTEOPOROSIS, UNSPECIFIED 06/16/2009 GABBY CRM MARKETING ANALYST, ROSEANN S 733.00 OSTEOPOROSIS, UNSPECIFIED 06/16/2009 GABBY CRM MARKETING ANALYST, ROSEANN S 733.00 OSTEOPOROSIS, UNSPECIFIED 06/16/2009 DE LA ROSA CRM MARKETING ANALYST, FAVIOLA D 733.00 OSTEOPOROSIS, UNSPECIFIED 09/23/2009 300.00 ANXIETY STATE , UNSPECIFIED 09/23/2009 702.0 Actinic Keratosis 09/23/2009 799.81 Decreased Libido 09/23/2009 GABBY CRM MARKETING ANALYST, ROSEANN S 300.00 ANXIETY STATE, UNSPECIFIED 09/23/2009 GABBY CRM MARKETING ANALYST, ROSEANN S 702.0 Actinic Keratosis 09/23/2009 GABBY CRM MARKETING ANALYST, ROSEANN S 799.81 Decreased Libido 09/23/2009 GABBY CRM MARKETING ANALYST, ROSEANN S 300.00 ANXIETY STATE, UNSPECIFIED 09/23/2009 GABBY CRM MARKETING ANALYST, ROSEANN S 702.0 Actinic Keratosis 09/23/2009 GABBY CRM MARKETING ANALYST, ROSEANN S 799.81 Decreased Libido 09/23/2009 GABBY CRM MARKETING ANALYST, ROSEANN S 300.00 ANXIETY STATE, UNSPECIFIED 09/23/2009 GABBY CRM MARKETING ANALYST, ROSEANN S 702.0 Actinic Keratosis 09/23/2009 GABBY CRM MARKETING ANALYST, ROSEANN S 799.81 Decreased Libido 09/23/2009 300.00 ANXIETY STATE , UNSPECIFIED 09/23/2009 702.0 Actinic Keratosis 09/23/2009 799.81 Decreased Libido 09/23/2009 300.00 ANXIETY STATE , UNSPECIFIED 09/23/2009 702.0 Actinic Keratosis 09/23/2009 799.81 Decreased Libido 09/23/2009 GABBY CRM MARKETING ANALYST, ROSEANN S 300.00 ANXIETY STATE, UNSPECIFIED 09/23/2009 GABBY CRM MARKETING ANALYST, ROSEANN S 702.0 Actinic Keratosis 09/23/2009 GABBY CRM MARKETING ANALYST, ROSEANN S 799.81 Decreased Libido 09/23/2009 GABBY CRM MARKETING ANALYST, ROSEANN S 300.00 ANXIETY STATE, UNSPECIFIED 09/23/2009 GABBY CRM MARKETING ANALYST, ROSEANN S 702.0 Actinic Keratosis 09/23/2009 GABBY CRM MARKETING ANALYST, ROSEANN S 799.81 Decreased Libido 09/23/2009 GABBY CRM MARKETING ANALYST, ROSEANN S 300.00 ANXIETY STATE, UNSPECIFIED 09/23/2009 GABBY CRM MARKETING ANALYST, ROSEANN S 702.0 Actinic Keratosis 09/23/2009 GABBY CRM MARKETING ANALYST, ROSEANN S 799.81 Decreased Libido 09/23/2009 GABBY CRM MARKETING ANALYST, ROSEANN S 300.00 ANXIETY STATE, UNSPECIFIED 09/23/2009 GABBY CRM MARKETING ANALYST, ROSEANN S 702.0 Actinic Keratosis 09/23/2009 GABBY CRM MARKETING ANALYST, ROSEANN S 799.81 Decreased Libido 09/23/2009 GABBY CRM MARKETING ANALYST, ROSEANN S 300.00 ANXIETY STATE, UNSPECIFIED 09/23/2009 GABBY CRM MARKETING ANALYST, ROSEANN S 702.0 Actinic Keratosis 09/23/2009 GABBY CRM MARKETING ANALYST, ROSEANN S 799.81 Decreased Libido 09/23/2009 GABBY CRM MARKETING ANALYST, ROSEANN S 300.00 ANXIETY STATE, UNSPECIFIED 09/23/2009 GABBY CRM MARKETING ANALYST, ROSEANN S 702.0 Actinic Keratosis 09/23/2009 GABBY CRM MARKETING ANALYST, ROSEANN S 799.81 Decreased Libido 09/23/2009 FAVIOLA DE LA ROSA APRN 300.00 ANXIETY STATE, UNSPECIFIED 09/23/2009 FAVIOLA DE LA ROSA APRN 702.0 Actinic Keratosis 09/23/2009 FAVIOLA DE LA ROSA APRN 799.81 Decreased Libido 03/15/2010 465.9 Upper Respiratory Infection 03/15/2010 786.2 Cough 03/15/2010 GABBY CRM MARKETING ANALYST, ROSEANN S 465.9 Upper Respiratory Infection 03/15/2010 GABBY CRM MARKETING ANALYST, ROSEANN S 786.2 Cough 03/15/2010 GABBY CRM MARKETING ANALYST, ROSEANN S 465.9 Upper Respiratory Infection 03/15/2010 GABBY CRM MARKETING ANALYST, ROSEANN S 786.2 Cough 03/15/2010 GABBY CRM MARKETING ANALYST, ROSEANN S 465.9 Upper Respiratory Infection 03/15/2010 GABBY CRM MARKETING ANALYST, ROSEANN S 786.2 Cough 03/15/2010 465.9 Upper Respiratory Infection 03/15/2010 786.2 Cough 03/15/2010 465.9 Upper Respiratory Infection 03/15/2010 786.2 Cough 03/15/2010 GABBY CRM MARKETING ANALYST, ROSEANN S 465.9 Upper Respiratory Infection 03/15/2010 GABBY CRM MARKETING ANALYST, RSOEANN S 786.2 Cough 03/15/2010 GABBY CRM MARKETING ANALYST, ROSEANN S 465.9 Upper Respiratory Infection 03/15/2010 GABBY CRM MARKETING ANALYST, ROSEANN S 786.2 Cough 03/15/2010 GABBY CRM MARKETING ANALYST, ROSEANN S 465.9 Upper Respiratory Infection 03/15/2010 GABBY CRM MARKETING ANALYST, ROSEANN S 786.2 Cough 03/15/2010 GABBY CRM MARKETING ANALYST, ROSEANN S 465.9 Upper Respiratory Infection 03/15/2010 GABBY CRM MARKETING ANALYST, ROSEANN S 786.2 Cough 03/15/2010 GABBY CRM MARKETING ANALYST, ROSEANN S 465.9 Upper Respiratory Infection 03/15/2010 GABBY CRM MARKETING ANALYST, ROSEANN S 786.2 Cough 03/15/2010 GABBY CRM MARKETING ANALYST, ROSEANN S 465.9 Upper Respiratory Infection 03/15/2010 GABBY CRM MARKETING ANALYST, ROSEANN S 786.2 Cough 03/15/2010 FAVIOLA DE LA ROSA APRN 465.9 Upper Respiratory Infection 03/15/2010 FAVIOLA DE LA ROSA APRN 786.2 Cough 08/09/2010 780.79 OTHER MALAISE AND FATIGUE 08/09/2010 780.96 GENERALIZED PAIN 08/09/2010 GABBY CRM MARKETING ANALYST, ROSEANN S 780.79 OTHER MALAISE AND FATIGUE 08/09/2010 GABBY CRM MARKETING ANALYST, ROSEANN S 780.96 GENERALIZED PAIN 08/09/2010 GABBY CRM MARKETING ANALYST, ROSEANN S 780.79 OTHER MALAISE AND FATIGUE 08/09/2010 GABBY CRM MARKETING ANALYST, ROSEANN S 780.96 GENERALIZED PAIN 08/09/2010 GABBY CRM MARKETING ANALYST, ROSEANN S 780.79 OTHER MALAISE AND FATIGUE 08/09/2010 GABBY CRM MARKETING ANALYST, ROSEANN S 780.96 GENERALIZED PAIN 08/09/2010 780.79 OTHER MALAISE AND FATIGUE 08/09/2010 780.96 GENERALIZED PAIN 08/09/2010 780.79 OTHER MALAISE AND FATIGUE 08/09/2010 780.96 GENERALIZED PAIN 08/09/2010 GABBY CRM MARKETING ANALYST, ROSEANN S 780.79 OTHER MALAISE AND FATIGUE 08/09/2010 GABBY CRM MARKETING ANALYST, ROSEANN S 780.96 GENERALIZED PAIN 08/09/2010 GABBY CRM MARKETING ANALYST, ROSEANN S 780.79 OTHER MALAISE AND FATIGUE 08/09/2010 GABBY CRM MARKETING ANALYST, ROSEANN S 780.96 GENERALIZED PAIN 08/09/2010 GABBY CRM MARKETING ANALYST, ROSEANN S 780.79 OTHER MALAISE AND FATIGUE 08/09/2010 GABBY CRM MARKETING ANALYST, ROSEANN S 780.96 GENERALIZED PAIN 08/09/2010 GABBY CRM MARKETING ANALYST, ROSEANN S 780.79 OTHER MALAISE AND FATIGUE 08/09/2010 GABBY CRM MARKETING ANALYST, ROSEANN S 780.96 GENERALIZED PAIN 08/09/2010 GABBY CRM MARKETING ANALYST, ROSEANN S 780.79 OTHER MALAISE AND FATIGUE 08/09/2010 GABBY CRM MARKETING ANALYST, ROSEANN S 780.96 GENERALIZED PAIN 08/09/2010 GABBY CRM MARKETING ANALYST, ROSEANN S 780.79 OTHER MALAISE AND FATIGUE 08/09/2010 GABBY CRM MARKETING ANALYST, ROSEANN S 780.96 GENERALIZED PAIN 08/09/2010 FAVIOLA DE LA ROSA APRN 780.79 OTHER MALAISE AND FATIGUE 08/09/2010 RJ LEYVA FAVIOLA D 780.96 GENERALIZED PAIN 12/01/2010 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 12/01/2010 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 12/01/2010 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 12/01/2010 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 12/01/2010 GABBY CRM MARKETING ANALYST, ROSEANN S 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 12/01/2010 GABBY CRM MARKETING ANALYST, ROSEANN S 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 12/01/2010 GABBY CRM MARKETING ANALYST, ROSEANN S 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 12/01/2010 GABBY CRM MARKETING ANALYST, ROSEANN S 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 12/01/2010 GABBY CRM MARKETING ANALYST, ROSEANN S 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 12/01/2010 GABBY CRM MARKETING ANALYST, ROSEANN S 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 12/01/2010 GABBY CRM MARKETING ANALYST, ROSEANN S 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 12/01/2010 GABBY CRM MARKETING ANALYST, ROSEANN S 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 12/01/2010 GABBY CRM MARKETING ANALYST, ROSEANN S 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 12/01/2010 GABBY CRM MARKETING ANALYST, ROSEANN S 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 12/01/2010 GABBY CRM MARKETING ANALYST, ROSEANN S 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 12/01/2010 GABBY CRM MARKETING ANALYST, ROSEANN S 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 12/01/2010 FAVIOLA DE LA ROSA APRN 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 12/01/2010 FAVIOLA DE LA ROSA APRN 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 02/13/2011 702.19 Seborrheic Keratosis 02/13/2011 GABBY CRM MARKETING ANALYST, ROSEANN S 702.19 Seborrheic Keratosis 02/13/2011 GABBY CRM MARKETING ANALYST, ROSEANN S 702.19 Seborrheic Keratosis 02/13/2011 GABBY CRM MARKETING ANALYST, ROSEANN S 702.19 Seborrheic Keratosis 02/13/2011 702.19 Seborrheic Keratosis 02/13/2011 702.19 Seborrheic Keratosis 02/13/2011 GABBY CRM MARKETING ANALYST, ROSEANN S 702.19 Seborrheic Keratosis 02/13/2011 GABBY CRM MARKETING ANALYST, ROSEANN S 702.19 Seborrheic Keratosis 02/13/2011 GABBY CRM MARKETING ANALYST, ROSEANN S 702.19 Seborrheic Keratosis 02/13/2011 GABBY CRM MARKETING ANALYST, ROSEANN S 702.19 Seborrheic Keratosis 02/13/2011 GABBY CRM MARKETING ANALYST, ROSEANN S 702.19 Seborrheic Keratosis 02/13/2011 GABBY CRM MARKETING ANALYST, ROSEANN S 702.19 Seborrheic Keratosis 02/13/2011 FAVIOLA DE LA ROSA APRN 702.19 Seborrheic Keratosis 06/19/2011 V03.82 PPV23 ( PNEUMOVAX) DX 06/19/2011 JI PIERRE APRNA S V03.82 PPV23 (PNEUMOVAX) DX 06/19/2011 JI PIERRE APRNA S V03.82 PPV23 (PNEUMOVAX) DX 06/19/2011 ROSEANN PIERRE APRN S V03.82 PPV23 (PNEUMOVAX) DX 06/19/2011 V03.82 PPV23 ( PNEUMOVAX) DX 06/19/2011 V03.82 PPV23 ( PNEUMOVAX) DX 06/19/2011 ROSEANN PIERRE APRN S V03.82 PPV23 (PNEUMOVAX) DX 06/19/2011 JI PIERRE APRNA S V03.82 PPV23 (PNEUMOVAX) DX 06/19/2011 JI PIERRE APRNA S V03.82 PPV23 (PNEUMOVAX) DX 06/19/2011 JI PIERRE APRNA S V03.82 PPV23 (PNEUMOVAX) DX 06/19/2011 JI PIERRE APRNA S V03.82 PPV23 (PNEUMOVAX) DX 06/19/2011 JI PIERRE APRNA S V03.82 PPV23 (PNEUMOVAX) DX 06/19/2011 FAVIOLA DE LA ROSA APRN V03.82 PPV23 (PNEUMOVAX) DX 09/22/2011 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 ANXIETY 09/22/2011 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 09/22/2011 JI PIERRE APRNA S 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 ANXIETY 09/22/2011 JI PIERRE APRNA S 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 09/22/2011 JI PIERRE APRNA S 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 ANXIETY 09/22/2011 JI PIERRE APRNA S 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 09/22/2011 JI PIERRE APRNA S 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 ANXIETY 09/22/2011 JI PIERRE APRNA S 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 09/22/2011 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 ANXIETY 09/22/2011 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 09/22/2011 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 ANXIETY 09/22/2011 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 09/22/2011 JI PIERRE APRNA S 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 ANXIETY 09/22/2011 JI PIERRE APRNA S 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 09/22/2011 JI PIERRE APRNA S 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 ANXIETY 09/22/2011 JI PIERRE APRNA S 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 09/22/2011 JI PIERRE APRNA S 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 ANXIETY 09/22/2011 GABBY CRM MARKETING ANALYST, ROSEANN S 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 09/22/2011 G[employer]BY CRM MARKETING ANALYST, ROSEANN S 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 ANXIETY 09/22/2011 GABBY CRM MARKETING ANALYST, ROSEANN S 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 09/22/2011 GABBY CRM MARKETING ANALYST, ROSEANN S 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 ANXIETY 09/22/2011 GABBY CRM MARKETING ANALYST, ROSEANN S 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 09/22/2011 GABBY CRM MARKETING ANALYST, ROSEANN S 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 ANXIETY 09/22/2011 GABBY CRM MARKETING ANALYST, ROSEANN S 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 09/22/2011 FAVIOLA DE LA ROSA APRN 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 ANXIETY 09/22/2011 FAVIOLA DE LA ROSA APRN 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 12/21/2011 530.81 ESOPHAGEAL REFLUX 12/21/2011 GABBY HALLN, ROSEANN S 530.81 ESOPHAGEAL REFLUX 12/21/2011 GABBY HALLN, ROSEANN S 530.81 ESOPHAGEAL REFLUX 12/21/2011 GABBY HALLN, ROSEANN S 530.81 ESOPHAGEAL REFLUX 12/21/2011 530.81 ESOPHAGEAL REFLUX 12/21/2011 530.81 ESOPHAGEAL REFLUX 12/21/2011 GABBY CRM MARKETING ANALYST, ROSEANN S 530.81 ESOPHAGEAL REFLUX 12/21/2011 GABBY CRM MARKETING ANALYST, ROSEANN S 530.81 ESOPHAGEAL REFLUX 12/21/2011 GABBY CRM MARKETING ANALYST, ROSEANN S 530.81 ESOPHAGEAL REFLUX 12/21/2011 GABBY CRM MARKETING ANALYST, ROSEANN S 530.81 ESOPHAGEAL REFLUX 12/21/2011 GABBY CRM MARKETING ANALYST, ROSEANN S 530.81 ESOPHAGEAL REFLUX 12/21/2011 G[employer]BY CRM MARKETING ANALYST, ROSEANN S 530.81 ESOPHAGEAL REFLUX 12/21/2011 FAVIOLA DE LA ROSA APRN 530.81 ESOPHAGEAL REFLUX 04/01/2012 593.9 RENAL INSUFFICIENCY 04/01/2012 786.2 COUGH 04/01/2012 G[employer]BY CRM MARKETING ANALYST, ROSEANN S 593.9 RENAL INSUFFICIENCY 04/01/2012 GABBY HALLN, ROSEANN S 786.2 COUGH 04/01/2012 GABBY HALLN, ROSEANN S 593.9 RENAL INSUFFICIENCY 04/01/2012 G[employer]BY CRM MARKETING ANALYST, ROSEANN S 786.2 COUGH 04/01/2012 GABBY CRM MARKETING ANALYST, ROSEANN S 593.9 RENAL INSUFFICIENCY 04/01/2012 GABBY CRM MARKETING ANALYST, ROSEANN S 786.2 COUGH 04/01/2012 593.9 RENAL INSUFFICIENCY 04/01/2012 786.2 COUGH 04/01/2012 593.9 RENAL INSUFFICIENCY 04/01/2012 786.2 COUGH 04/01/2012 GABBY CRM MARKETING ANALYST, ROSEANN S 593.9 RENAL INSUFFICIENCY 04/01/2012 GABBY CRM MARKETING ANALYST, ROSEANN S 786.2 COUGH 04/01/2012 GABBY CRM MARKETING ANALYST, ROSEANN S 593.9 RENAL INSUFFICIENCY 04/01/2012 GABBY CRM MARKETING ANALYST, ROSEANN S 786.2 COUGH 04/01/2012 GABBY CRM MARKETING ANALYST, ROSEANN S 593.9 RENAL INSUFFICIENCY 04/01/2012 GABBY CRM MARKETING ANALYST, ROSEANN S 786.2 COUGH 04/01/2012 GABBY CRM MARKETING ANALYST, ROSEANN S 593.9 RENAL INSUFFICIENCY 04/01/2012 GABBY CRM MARKETING ANALYST, ROSEANN S 786.2 COUGH 04/01/2012 GABBY CRM MARKETING ANALYST, ROSEANN S 593.9 RENAL INSUFFICIENCY 04/01/2012 GABBY CRM MARKETING ANALYST, ROSEANN S 786.2 COUGH 04/01/2012 GABBY CRM MARKETING ANALYST, ROSEANN S 593.9 RENAL INSUFFICIENCY 04/01/2012 GABBY CRM MARKETING ANALYST, ROSEANN S 786.2 COUGH 04/01/2012 FAVIOLA DE LA ROSA APRN D 593.9 RENAL INSUFFICIENCY 04/01/2012 FAVIOLA DE LA ROSA APRN D 786.2 COUGH 10/07/2012 GABBY CRM MARKETING ANALYST, ROSEANN S 535.50 GASTRITIS UNSPEC 10/07/2012 535.50 GASTRITIS UNSPEC 10/07/2012 535.50 GASTRITIS UNSPEC 10/07/2012 GABBY CRM MARKETING ANALYST, ROSEANN S 535.50 GASTRITIS UNSPEC 10/07/2012 GABBY CRM MARKETING ANALYST, ROSEANN S 535.50 GASTRITIS UNSPEC 10/07/2012 GABBY HALLN, ROSEANN S 535.50 GASTRITIS UNSPEC 10/07/2012 GABBY HALLN, ROSEANN S 535.50 GASTRITIS UNSPEC 10/07/2012 GABBY LEYVA, ROSEANN S 535.50 GASTRITIS UNSPEC 10/07/2012 RENEE PIERRE APRNNDA S 535.50 GASTRITIS UNSPEC 10/07/2012 FAVIOLA DE LA ROSA APRN 535.50 GASTRITIS UNSPEC 05/07/2013 RENEE PIERRE APRNNDA S V04.81 FLU SHOT 05/07/2013 GABBY LEYVA, ROSEANN S V04.81 FLU SHOT 05/07/2013 GABBY LEYVA, ROSEANN S V04.81 FLU SHOT 05/07/2013 GABBY LEYVA ROSEANN S V04.81 FLU SHOT 05/07/2013 GABBY LEYVA ROSEANN S V04.81 FLU SHOT 05/07/2013 GABBY LEYVA ROSEANN S V04.81 FLU SHOT 05/07/2013 FAVIOLA DE LA ROSA APRN V04.81 FLU SHOT 05/26/2013 GABBY LEYVA, ROSEANN S 701.9 SKIN TAG 05/26/2013 GABBY LEYVA ROSEANN S 701.9 SKIN TAG 05/26/2013 GABBY LEYVA ROSEANN S 701.9 SKIN TAG 05/26/2013 GABBY LEYVA, ROSEANN S 701.9 SKIN TAG 05/26/2013 GABBY LEYVA ROSEANN S 701.9 SKIN TAG 05/26/2013 FAVIOLA DE LA ROSA APRN 701.9 SKIN TAG 12/09/2013 GABBY LEYVA ROSEANN S 272.1 HYPERTRIGLYCERIDEMIA 12/09/2013 GABBY LEYVA ROSEANN S 272.1 HYPERTRIGLYCERIDEMIA 12/09/2013 GABBY LEYVA ROSEANN S 272.1 HYPERTRIGLYCERIDEMIA 12/09/2013 GABBY LEYVA ROSEANN S 272.1 HYPERTRIGLYCERIDEMIA 12/09/2013 FAVIOLA DE LA ROSA APRN 272.1 HYPERTRIGLYCERIDEMIA 02/27/2014 CAROL GARCIA MD Ot 272.0 PURE HYPERCHOLESTEROLEM 02/27/2014 CAROL GARCIA MD Ot 311 DEPRESSIVE DISORDER NEC 02/27/2014 CAROL GARCIA MD Ot 366.9 CATARACT NOS 02/27/2014 CAROL GARCIA MD Ot 401.9 HYPERTENSION NOS 02/27/2014 CAROL GARCIA MD Ot 530.81 ESOPHAGEAL REFLUX 02/27/2014 CAROL GARCIA MD Ot 716.90 ARTHROPATHY NOS-UNSPEC 02/27/2014 CAROL GARCIA MD Ot 786.50 CHEST PAIN NOS 02/27/2014 CAROL GARCIA MD Ot 786.52 PAINFUL RESPIRATION 02/27/2014 CAROL GARCIA MD Ot V58.66 LONG-TERM (CURRENT) USE OF ASPIRIN 02/27/2014 CAROL GARCIA MD Ot V58.69 OT MED,LT,CURRENT USE 07/08/2014 ROSEANN PIERRE APRN S 719.41 PAIN- SHOULDER 07/08/2014 ROSEANN PIERRE APRN 719.41 PAIN- SHOULDER 07/08/2014 FAVIOLA DE LA ROSA APRN 719.41 PAIN- SHOULDER 06/01/2016 GEO BORREGO DO Ot J44.9 CHRONIC OBSTRUCTIVE PULMONARY DISEASE, U 06/01/2016 GEO BORREGO DO Ot K29.70 GASTRITIS, UNSPECIFIED, WITHOUT BLEEDING 06/01/2016 GEO BORREGO DO Ot Z01.818 ENCOUNTER FOR OTHER PREPROCEDURAL EXAMIN 06/01/2016 GEO BORREGO DO Ot J44.9 CHRONIC OBSTRUCTIVE PULMONARY DISEASE, U 06/01/2016 GEO BORREGO DO Ot K29.70 GASTRITIS, UNSPECIFIED, WITHOUT BLEEDING 06/01/2016 GEO BORREGO DO Ot Z01.818 ENCOUNTER FOR OTHER PREPROCEDURAL EXAMIN 06/07/2016 GEO BORREGO DO Ot K29.70 GASTRITIS, UNSPECIFIED, WITHOUT BLEEDING 06/07/2016 GEO BORREGO DO D Ot K31.7 POLYP OF STOMACH AND DUODENUM 06/07/2016 GEO BORREGO DO D Ot K44.9 DIAPHRAGMATIC HERNIA WITHOUT OBSTRUCTION 06/20/2016 GEO BORREGO DO D Ot K29.70 GASTRITIS, UNSPECIFIED, WITHOUT BLEEDING 06/20/2016 GEO BORREGO DO D Ot K31.7 POLYP OF STOMACH AND DUODENUM 06/20/2016 GEO BORREGO DO Ot K44.9 DIAPHRAGMATIC HERNIA WITHOUT OBSTRUCTION 06/22/2016 GEO BORREGO DO Ot K29.70 GASTRITIS, UNSPECIFIED, WITHOUT BLEEDING 06/22/2016 BORREGO DO, GEO D Ot K31.7 POLYP OF STOMACH AND DUODENUM 06/22/2016 BORREGO DO, GEO D Ot K44.9 DIAPHRAGMATIC HERNIA WITHOUT OBSTRUCTION 06/27/2016 BORREGO DO, GEO D Ot K29.70 GASTRITIS, UNSPECIFIED, WITHOUT BLEEDING 06/27/2016 BORREGO DO, GEO D Ot K31.7 POLYP OF STOMACH AND DUODENUM 06/27/2016 BORREGO DO, GEO D Ot K44.9 DIAPHRAGMATIC HERNIA WITHOUT OBSTRUCTION 07/07/2016 BORREGO DO, GEO D Ot K29.70 GASTRITIS, UNSPECIFIED, WITHOUT BLEEDING 07/07/2016 BORREGO DO, GEO D Ot K31.7 POLYP OF STOMACH AND DUODENUM 07/07/2016 BORREGO DO, GEO D Ot K44.9 DIAPHRAGMATIC HERNIA WITHOUT OBSTRUCTION 07/07/2016 BORREGO DO, EGO D Ot K29.70 GASTRITIS, UNSPECIFIED, WITHOUT BLEEDING 07/07/2016 BORREGO DO, GEO D Ot K31.7 POLYP OF STOMACH AND DUODENUM 07/07/2016 BORREGO DO, GEO D Ot K44.9 DIAPHRAGMATIC HERNIA WITHOUT OBSTRUCTION 11/06/2017 BORREGO DO, GEO D Ot K29.70 GASTRITIS, UNSPECIFIED, WITHOUT BLEEDING 11/06/2017 BORREGO DO, GEO D Ot K31.7 POLYP OF STOMACH AND DUODENUM 11/06/2017 BORREGO DO, GEO D Ot K44.9 DIAPHRAGMATIC HERNIA WITHOUT OBSTRUCTION 11/08/2017 ANTONETTE ALMARAZ MD Ot E78.00 PURE HYPERCHOLESTEROLEMIA, UNSPECIFIED 11/08/2017 ANTONETTE ALMARAZ MD Ot F32.9 MAJOR DEPRESSIVE DISORDER, SINGLE EPISOD 11/08/2017 ANTONETTE ALMARAZ MD Ot I10 ESSENTIAL (PRIMARY) HYPERTENSION 11/08/2017 ANTONETTE ALMARAZ MD Ot J44.9 CHRONIC OBSTRUCTIVE PULMONARY DISEASE, U 11/08/2017 ANTONETTE ALMARAZ MD, Ot K21.9 GASTRO-ESOPHAGEAL REFLUX DISEASE WITHOUT 11/08/2017 ANTONETTE ALMARAZ MD Ot R07.81 PLEURODYNIA 11/08/2017 ANTONETTE ALMARAZ MD Ot Z79.52 RESIDENTIAL (CURRENT) USE OF SYSTEMIC STER 11/08/2017 ANTONETTE ALMARAZ MD Ot Z79.82 RESIDENTIAL (CURRENT) USE OF ASPIRIN 11/08/2017 ANTONETTE ALMARAZ MD Ot Z87.19 PERSONAL HISTORY OF OTHER DISEASES OF TH 11/08/2017 ANTONETTE ALMARAZ MD Ot Z88.0 ALLERGY STATUS TO PENICILLIN 11/08/2017 ANTONETTE ALMARAZ MD Ot Z88.2 ALLERGY STATUS TO SULFONAMIDES STATUS 11/08/2017 ANTONETTE ALMARAZ MD Ot Z90.710 ACQUIRED ABSENCE OF BOTH CERVIX AND UTER 11/08/2017 ANTONETTE ALMARAZ MD Ot Z98.51 TUBAL LIGATION STATUS Procedures Code Description [place] [id number] MICRO ALBUMIN-IN HOUSE 07/16/2012 58195 H PYLORI (IN-HOUSE) 10/07/2012 G0008 FLU ADMINISTRATION ( MEDICARE ONLY) 05/07/2013 72770 ROUTINE VENIPUNCTURE 12/08/2013 57217 CBC 12/08/2013 [id number] GFR CALC (RESULT ONLY) 12/08/2013 71374 CMP 12/08/2013 05753 LIPID PANEL 12/08/2013 35558 TSH 12/08/2013 92319 ROUTINE VENIPUNCTURE 01/14/2014 [id number] GFR CALC (RESULT ONLY) 01/14/2014 27145 CMP 01/14/2014 15364 LIPID PANEL 01/14/2014 88733 XRAY SHOULDER RIGHT COMP 2 VIEWS 07/08/2014 62955 ROUTINE VENIPUNCTURE 07/10/2014 53075 LIPID PANEL 07/10/2014 Results Test Result Range Comp. Metabolic Panel (14) - 04/04/17 10:13 Glucose, Serum 105 mg/dL 65-99 BUN 14 mg/dL 8-27 Creatinine, Serum 1.05 mg/dL 0.57-1.00 eGFR If NonAfricn Am 53 mL/min/1.73 >59 eGFR If Africn Am 61 mL/min/1.73 >59 BUN/Creatinine Ratio 13 12-28 Sodium, Serum 144 mmol/L 134-144 Potassium, Serum 4.1 mmol/L 3.5-5.2 Chloride, Serum 100 mmol/L 96-106 Carbon Dioxide, Total 25 mmol/L 18-29 Calcium, Serum 9.7 mg/dL 8.7-10.3 Protein, Total, Serum 7.7 g/dL 6.0-8.5 Albumin, Serum 4.7 g/dL 3.5-4.8 Globulin, Total 3.0 g/dL 1.5-4.5 A/G Ratio 1.6 1.2-2.2 Bilirubin, Total 0.9 mg/dL 0.0-1.2 Alkaline Phosphatase, S 93 IU/L 39-117 AST (SGOT) 22 IU/L 0-40 ALT (SGPT) 17 IU/L 0-32 Lipid Panel - 04/04/17 10:13 Cholesterol, Total 177 mg/dL 100-199 Triglycerides 213 mg/dL 0-149 HDL Cholesterol 55 mg/dL >39 VLDL Cholesterol Niraj 43 mg/dL 5-40 LDL Cholesterol Calc 79 mg/dL 0-99 LIPID PANEL - 04/04/17 10:13 Cholesterol, Total 177 mg/dL 100-199 Triglycerides 213 mg/dL 0-149 HDL Cholesterol 55 mg/dL >39 VLDL Cholesterol Niraj 43 mg/dL 5-40 LDL Cholesterol Calc 79 mg/dL 0-99 Comment: NRG CMP - 04/04/17 10:13 Glucose, Serum 105 mg/dL 65-99 BUN 14 mg/dL 8-27 Creatinine, Serum 1.05 mg/dL 0.57-1.00 eGFR If NonAfricn Am 53 mL/min/1.73 >59 eGFR If Africn Am 61 mL/min/1.73 >59 BUN/Creatinine Ratio 13 12-28 Sodium, Serum 144 mmol/L 134-144 Potassium, Serum 4.1 mmol/L 3.5-5.2 Chloride, Serum 100 mmol/L 96-106 Carbon Dioxide, Total 25 mmol/L 18-29 Calcium, Serum 9.7 mg/dL 8.7-10.3 Protein, Total, Serum 7.7 g/dL 6.0-8.5 Albumin, Serum 4.7 g/dL 3.5-4.8 Globulin, Total 3.0 g/dL 1.5-4.5 A/G Ratio 1.6 1.2-2.2 Bilirubin, Total 0.9 mg/dL 0.0-1.2 Alkaline Phosphatase, S 93 IU/L 39-117 AST (SGOT) 22 IU/L 0-40 ALT (SGPT) 17 IU/L 0-32 CBC - 09/17/17 12:20 WHITE BLOOD CELL COUNT 7.3 Thousand/uL 3.8-10.8 RED BLOOD CELL COUNT 4.98 Million/uL 3.80-5.10 HEMOGLOBIN 15.2 g/dL 11.7-15.5 HEMATOCRIT 46.0 % 35.0-45.0 MCV 92.4 fL 80.0-100.0 MCH 30.5 pg 27.0-33.0 MCHC 33.0 g/dL 32.0-36.0 RDW 12.8 % 11.0-15.0 PLATELET COUNT 200 Thousand/uL 140-400 MPV 11.3 fL 7.5-12.5 ABSOLUTE NEUTROPHILS 4234 cells/uL 0068-7810 ABSOLUTE LYMPHOCYTES 2387 cells/uL 850-3900 ABSOLUTE MONOCYTES 416 cells/uL 200-950 ABSOLUTE EOSINOPHILS 219 cells/uL 15-500 ABSOLUTE BASOPHILS 44 cells/uL 0-200 NEUTROPHILS 58 % NRG LYMPHOCYTES 32.7 % NRG MONOCYTES 5.7 % NRG EOSINOPHILS 3.0 % NRG BASOPHILS 0.6 % NRG Complete blood count (CBC) with automated white blood cell (WBC) differential - 11/06/17 11:06 Blood leukocytes automated count (number/volume) 6.7 10*3/uL 4.3-11.0 Blood erythrocytes automated count (number/volume) 4.66 10*6/uL 4.35-5.85 Venous blood hemoglobin measurement (mass/volume) 14.2 g/dL 11.5-16.0 Blood hematocrit (volume fraction) 42 % 35-52 Automated erythrocyte mean corpuscular volume 90 [foz_us] 80-99 Automated erythrocyte mean corpuscular hemoglobin (mass per erythrocyte) 31 pg 25-34 Automated erythrocyte mean corpuscular hemoglobin concentration measurement ( mass/volume) 34 g/dL 32-36 Automated erythrocyte distribution width ratio 13.0 % 10.0-14.5 Automated blood platelet count (count/volume) 197 10*3/uL 130-400 Automated blood platelet mean volume measurement 10.4 [foz_us] 7.4-10.4 Automated blood neutrophils/100 leukocytes 54 % 42-75 Automated blood lymphocytes/100 leukocytes 35 % 12-44 Blood monocytes/100 leukocytes 8 % 0-12 Automated blood eosinophils/100 leukocytes 2 % 0-10 Automated blood basophils/100 leukocytes 1 % 0-10 Blood neutrophils automated count (number/volume) 3.6 10*3 1.8-7.8 Blood lymphocytes automated count (number/volume) 2.3 10*3 1.0-4.0 Blood monocytes automated count (number/volume) 0.5 10*3 0.0-1.0 Automated eosinophil count 0.2 10*3/uL 0.0-0.3 Automated blood basophil count (count/volume) 0.0 10*3/uL 0.0-0.1 PT panel in platelet poor plasma by coagulation assay - 11/06/17 11:06 Prothrombin time (PT) in platelet poor plasma by coagulation assay 12.2 s 12.2-14.7 INR in platelet poor plasma or blood by coagulation assay 0.9 0.8-1.4 Activated partial thromboplastin time (aPTT) in platelet poor plasma bycoagulation assay - 11/06/17 11:06 Activated partial thromboplastin time (aPTT) in platelet poor plasma bycoagulation assay 30 s 24-35 Fibrin D-dimer FEU measurement in platelet poor plasma (mass/volume) - 11:06 Fibrin D-dimer FEU measurement in platelet poor plasma (mass/volume) < ug/mL 0.00-0.49 Comprehensive metabolic panel - 11/06/17 11:06 Serum or plasma sodium measurement (moles/volume) 140 mmol/L 135-145 Serum or plasma potassium measurement (moles/volume) 3.9 mmol/L 3.6-5.0 Serum or plasma chloride measurement (moles/volume) 105 mmol/L 98-107 Carbon dioxide 21 mmol/L 21-32 Serum or plasma anion gap determination (moles/volume) 13 mmol/L 5-14 Serum or plasma urea nitrogen measurement (mass/volume) 16 mg/dL 7-18 Serum or plasma creatinine measurement (mass/volume) 1.05 mg/dL 0.60-1.30 Serum or plasma urea nitrogen/creatinine mass ratio 15 NRG Serum or plasma creatinine measurement with calculation of estimated glomerular filtration rate 52 NRG Serum or plasma glucose measurement (mass/volume) 98 mg/dL 70-105 Serum or plasma calcium measurement (mass/volume) 9.7 mg/dL 8.5-10.1 Serum or plasma total bilirubin measurement (mass/volume) 1.0 mg/dL 0.1-1.0 Serum or plasma alkaline phosphatase measurement (enzymatic activity/volume) 90 U/L 40-136 Serum or plasma aspartate aminotransferase measurement (enzymatic activity/ volume) 24 U/L 5-34 Serum or plasma alanine aminotransferase measurement (enzymatic activity/volume ) 18 U/L 0-55 Serum or plasma protein measurement (mass/volume) 8.0 g/dL 6.4-8.2 Serum or plasma albumin measurement (mass/volume) 4.5 g/dL 3.2-4.5 Magnesium - 11/06/17 11:06 Magnesium 2.3 mg/dL 1.8-2.4 Serum or plasma troponin i.cardiac measurement (mass/volume) - 11/06/17 11:06 Serum or plasma troponin i.cardiac measurement (mass/volume) < ng/ mL <0.30 Myoglobin, serum - 11/06/17 11:06 Myoglobin, serum 38.8 ng/mL 10.0-92.0 Encounters ACCT No. Visit Date/Time Discharge Status Pt. Type Provider Facility Loc./Unit Complaint [id number] 08/13/2014 14:40:00 08/13/2014 23:59:59 CLS Outpatient FAVIOLA DE LA ROSA APRN [id number] 07/10/2014 12:24:00 07/10/2014 23:59:59 CLS Outpatient ROSEANN PIERRE APRN S [id number] 07/08/2014 15:21:00 07/08/2014 23:59:59 CLS Outpatient JI PIERRE APRNA S [id number] 01/14/2014 10:05:00 01/14/2014 23:59:59 CLS Outpatient JI PIERRE APRNA S [id number] 12/08/2013 09:42:00 12/08/2013 23:59:59 CLS Outpatient JI PIERRE APRNA S [id number] 05/26/2013 10:20:00 05/26/2013 23:59:59 CLS Outpatient JI PIERRE APRNA S [id number] 05/07/2013 14:23:00 05/07/2013 23:59:59 CLS Outpatient JI PIERRE APRNA S [id number] 10/07/2012 10:02:00 10/07/2012 23:59:59 CLS Outpatient JI PIERRE APRNA S [id number] 07/16/2012 08:57:00 07/16/2012 23:59:59 CLS Outpatient JI PIERRE APRNA S [id number] 05/08/2012 10:55:00 05/08/2012 23:59:59 CLS Outpatient [id number] 06/19/2011 12:00:00 06/19/2011 23:59:59 CLS Outpatient ROSEANN PIERRE APRN [id number] 02/19/2013 15:26:00 Document Registration [id number] 10/07/2012 10:02:00 Document Registration [id number] 04/05/2017 11:07:00 Document Registration [id number] 11/06/2017 10:34:00 11/06/2017 13:01:00 DIS Outpatient ANTONETTE ALMARAZ MD [facility] ER CHEST DISCOMFORT WHEN BREATHING-LUNG [id number] 06/06/2016 09:21:00 06/06/2016 23:59:59 CLS Outpatient GEO BORREGO DO [facility] SDC HIATAL HERNIA [id number] 06/01/2016 05:33:00 06/01/2016 09:46:00 DIS Outpatient GEO BORREGO DO [facility] PREOP HIATAL HERNIA [id number] 02/27/2014 12:23:00 02/27/2014 14:39:00 DIS Emergency RADHA RING, CAROL Mtz [facility] ER CHEST PAIN [id number] 11/12/2017 14:40:00 11/12/2017 23:59:59 CLS Outpatient ROSEANN PIERRE APRN [facility] [id number] 09/17/2017 11:20:00 Document Registration [id number] 04/04/2017 09:20:00 Document Registration
== END 2017-11-17 17:01 | disposition home or self-care (01) ==
LOC: EDUNIT# 13:31 → ER 13:32
DX: R51 Headache (principal); J44.9 Chronic obstructive pulmonary disease, unspecified; E78.00 Pure hypercholesterolemia, unspecified; I10 Essential (primary) hypertension; F32.9 Major depressive disorder, single episode, unspecified; K21.9 Gastro-esophageal reflux disease without esophagitis; Z87.19 Personal history of other diseases of the digestive system; Z90.710 Acquired absence of both cervix and uterus; Z98.51 Tubal ligation status; Z79.82 Long term (current) use of aspirin; Z79.52 Long term (current) use of systemic steroids; Z88.0 Allergy status to penicillin; Z88.2 Allergy status to sulfonamides
CPT/HCPCS: 36415; 70470; 80053; 85025; 85652; 96360; 99283

== ENCOUNTER → 2018-07-15 | Outpatient (CLI) | payer MEDICARE ==
[~2018-07-15] MED LIST changes: +GADOBUTROL 7.5 MMOL/7.5 ML (GADAVIST) VIAL IV ONE
--- NOTE | 2018-07-15 11:19 | Diagnostic Imaging Report ---
PROCEDURE: US carotid duplex, bilateral. TECHNIQUE: Multiple real-time grayscale images were obtained over the carotid arteries in various projections, bilaterally. Additional spectral analysis and color Doppler duplex images were also obtained. INDICATION: Family history of embolic stroke. Parameters based on the consensus panel Hagan-Scale and Doppler ultrasound criteria published June 2003, Radiology, Volume 229. DOPPLER (peak systolic velocity M/S Right Left CCA .90 .81 ICA Proximal .79 .87 ICA Mid .85 .94 ICA Distal .98 .83 RATIO 1.08 1.16 ECA 1.08 1.36 VERT 1.90 .81 COMPARISON: There are no prior studies available for comparison. FINDINGS: There is moderate soft plaque formation in both carotid systems. The flow velocities failed to show any sign of a hemodynamically significant stenosis of the common or internal carotid arteries. Both vertebral arteries were noted and there was antegrade flow bilaterally. IMPRESSION: There is mild atherosclerotic disease involving both carotid systems. There is no evidence for hemodynamically significant stenosis of the common or internal carotid arteries, however. Dictated by: Dictated on workstation # [id number]
--- NOTE | 2018-07-15 11:32 | Diagnostic Imaging Report ---
PROCEDURE: MR imaging of the brain with and without contrast. TECHNIQUE: Multiplanar, multisequence MR imaging of the brain was performed with and without contrast. INDICATION: Cranial nerve palsy. COMPARISON: CT head without and with IV contrast 11/17/2017. FINDINGS: Mild generalized cerebral and cerebellar parenchymal volume loss. Mild nonspecific T2 hyperintensities in the supratentorial white matter. No abnormal intracranial enhancement. No restricted water diffusion or hemosiderin deposition. Normal morphology including the major midline structures, sella, posterior fossa and cerebellar pontine angle. No hydrocephalus or extra-axial fluid collections. Normal intracranial flow voids. Postoperative changes in the globes. The paranasal sinuses and mastoids are clear. Normal bone marrow signal. IMPRESSION: Age-appropriate MRI of the brain. No acute intracranial MRI findings. Dictated by: Dictated on workstation # [id number]
== END ==
LOC: RAD 09:45
PROVIDERS: ATTEND Nurse Practitioner Community Health
DX: I65.23 Occlusion and stenosis of bilateral carotid arteries (principal); G52.9 Cranial nerve disorder, unspecified; Z82.3 Family history of stroke
CPT/HCPCS: 70553; 93880

== ENCOUNTER 2018-11-10 10:13 | Emergency (ER) | payer MEDICARE ==
[~2018-11-10] VITALS: Ht 160 cm; Wt 56.7 kg
[~2018-11-10 10:13] MED LIST changes: -GADOBUTROL 7.5 MMOL/7.5 ML (GADAVIST) VIAL IV ONE
[2018-11-10] MEDS ORDERED: HYDROcodone/APAP 5 MG/325 MG (LORTAB) TAB PO ONE (10:45)
--- NOTE | 2018-11-10 11:09 | Diagnostic Imaging Report ---
Indication: Pain and swelling. 3 views were obtained. Findings: The bones are osteopenic. There are degenerative changes of the radiocarpal joint. There are degenerative changes at the base of the first metacarpal. There is no fracture or dislocation. Impression: Osteopenia and degenerative change however no acute fracture or dislocation. Dictated by: Dictated on workstation # [id number]
--- NOTE | 2018-11-10 11:47 | ED Fall/Injury ---
General Chief Complaint: Upper Extremity Stated Complaint: LEFT WRIST INJ Nursing Triage Note: PT STATES SHE WAS PULLING WEEDS YESTERDAY AFTERNOON AND FELL OVER, CC OF PAIN TO THE LT WRIST, MINOR SWELLING. Source: patient Exam Limitations: no limitations History of Present Illness Date Seen by Provider: Nov 11, 2018 Time Seen by Provider: 10:30 Initial Comments This 73-year-old woman presents to emergency room with pain in the left wrist with some subtle swelling and erythema as well. She was pulling weeds in the garden and a Vine she was pulling on broke loose causing her to fall backward. She believes she caught herself on her left hand. She reports pain initially was minimal but has worsened this morning. She took Tylenol arthritis which has not controlled her pain. Patient has notable arthritis with disfigurement of the fingers. Allergies and Home Medications Allergies Coded Allergies: Penicillins (Unverified Allergy, Intermediate, ITCHING ALL OVER, 06/06/16) Sulfa (Sulfonamide Antibiotics) (Unverified Allergy, Unknown, ITCHINESS TO LEGS, 02/27/14) Home Medications Aspirin 81 Mg Tablet.dr, 81 MG PO 1900, (Reported) Bupropion Hcl 200 Mg Tablet.sa, 200 MG PO BID, (Reported) Calcium Carb & Cit/Vitamin D3 1 Each Tablet.er, 1 TAB PO BID, (Reported) 630MG/500IU Cyanocobalamin 1,000 Mcg Tab.subl, 1,000 MCG SL DAILY, (Reported) Dexlansoprazole 60 Mg Cap.bp, 60 MG PO DAILY, (Reported) Dicyclomine HCl 20 Mg Tablet, 20 MG PO TID, (Reported) Docusate Sodium 100 Mg Capsule, 200 MG PO 1900, (Reported) Fish Oil/Dha/Epa 1 Each Capsule, 1 CAP PO DAILY, (Reported) Hydrocodone/Acetaminophen 1 Each Tablet, 1 TAB PO Q6H PRN for PAIN-MODERATE TO SEVERE Prescribed by: KETTY SMITH on 11/10/18 1157 Metoprolol Tartrate 50 Mg Tablet, 25 MG PO BID, (Reported) Multivitamin 1 Each Tablet, 1 TAB PO DAILY, (Reported) Prednisone 20 Mg Tab, 20 MG PO DAILY Prescribed by: ANTONETTE ALMARAZ on 11/06/17 1244 Pyridoxine Hcl 100 Mg Tablet, 100 MG PO 1900, (Reported) Simvastatin 80 Mg Tablet, 80 MG PO 1900, (Reported) Vitamin E Mixed 400 Unit Tablet, 400 UNIT PO DAILY, (Reported) Patient Home Medication List Home Medication List Reviewed: Yes Review of Systems Review of Systems Constitutional: no symptoms reported Eyes: No Symptoms Reported Ears, Nose, Mouth, Throat: no symptoms reported Respiratory: no symptoms reported Cardiovascular: no symptoms reported Gastrointestinal: no symptoms reported Genitourinary: no symptoms reported Musculoskeletal: see HPI Skin: see HPI Psychiatric/Neurological: No Symptoms Reported Past Zirbcgi-Lkmked-Ovcwoj Hx Patient Social History Alcohol Use: Denies Use Recreational Drug Use: No Smoking Status: Former Smoker Former Smoker, Quit: Nov 04, 1968 2nd Hand Smoke Exposure: No Recent Foreign Travel: No Contact w/Someone Who Travel: No Recent Infectious Disease Expo: No Recent Hopitalizations: No Immunizations Up To Date Tetanus Booster (TDap): Unknown Date of Pneumonia Vaccine: May 06, 2013 Date of Influenza Vaccine: May 08, 2018 Seasonal Allergies Seasonal Allergies: Yes Past Medical History Surgeries: Yes (UPPER AND LOWER GI SCOPE) Gallbladder, Tubal Ligation Respiratory: Yes Asthma, COPD Cardiac: Yes High Cholesterol, Hypertension Neurological: Yes (MEMORY IS IMPAIRED) 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 Disorders: No DETECTIVE CHIEF History: Hysterectomy Sexually Transmitted Disease: Yes HIV/AIDS: No Genitourinary: Yes (STAGE 3 KIDNEY DISEASE 11/10/18) Gastrointestinal: Yes Gastroesophageal Reflux, Ulcer Musculoskeletal: Yes Arthritis Endocrine: No Cataract Cancer: No Psychosocial: Yes Depression Integumentary: No Blood Disorders: No Adverse Reaction/Blood Tranf: No (N/A) Family Medical History Stroke, Vascular Disease Physical Exam Vital Signs Vital Signs - First Documented 11/10/18 10:23 Temp 99.6 Pulse 100 Resp 20 B/P (MAP) 166/76 (106) Pulse Ox 98 O2 Delivery Room Air Capillary Refill : Less Than 3 Seconds Height, Weight, BMI Height: 5'3.00" Weight: 125lbs. 0.0oz. 56.842696be; 25.6 BMI Method:Stated General Appearance: WD/WN, no apparent distress HEENT: normal ENT inspection Neck: normal inspection Cardiovascular: regular rate, rhythm, no edema, no murmur Respiratory: lungs clear, normal breath sounds, no respiratory distress Extremities: other (Tenderness with minimal swelling and mild erythema about the left wrist. Hand exam is unremarkable aside from chronic arthritic changes. 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, no motor/sensory deficits, alert, normal mood/affect, oriented x 3 Skin: normal color, other (Subtle erythema about the left wrist) Paramjit Coma Score Best Eye Response: (4) Open Spontaneously Best Verbal Response: (5) Oriented Best Motor Response: (6) Obeys Commands Paramjit Total: 15 Progress/Results/Core Measures Results/Orders My Orders Orders - KETTY NELSON MD Hydrocodone/Apap 5/325 Tablet (Lortab 5 (11/10/18 10:45) Wrist, Left, 3 Views Or More (11/10/18 10:36) Medications Given in ED Vital Signs/I&O 11/10/18 11/10/18 11/10/18 10:23 10:43 12:00 Temp 99.6 99.6 99.6 Pulse 100 100 Resp 20 20 B/P (MAP) 166/76 (106) 166/76 (106) Pulse Ox 98 98 O2 Delivery Room Air Room Air Blood Pressure Mean: 106 Progress Progress Note : Progress Note X-rays were obtained of the wrist. No fractures were seen. However, patient has significant osteopenia which may limit ability to visualize fractures. She was placed in a Colles' splint which significantly improved her discomfort. She was also given a hydrocodone. She was advised to follow-up with Dr. Pruitt to be reassessed. We talked about the possibility of rheumatoid arthritis in addition to osteoarthritis. She may need a repeat x-ray in a few days if she does not improve. Diagnostic Imaging Diagonstic Imaging: Xray Plain Films/CT/US/NM/MRI: other (Left wrist) Comments Viewed by me and report reviewed. See report below: NAME: VENECIA KUMAR [facility] REC#: [id number] PT STATUS: REG ER : 1945 PHYSICIAN: KETTY NELSON MD ADMIT DATE: 11/10/18/ER Signed Date of Exam: 11/10/18 WRIST, LEFT, 3 VIEWS OR MORE Indication: Pain and swelling. 3 views were obtained. Findings: The bones are osteopenic. There are degenerative changes of the radiocarpal joint. There are degenerative changes at the base of the first metacarpal. There is no fracture or dislocation. Impression: Osteopenia and degenerative change however no acute fracture or dislocation. Dictated by: Dictated on workstation # [id number] Dict: 11/10/18 1107 Trans: 11/10/181108 Interpreted by: NAVID ARROYO MD Electronically signed by: NAVID ARROYO MD 11/10/18 110 Departure Impression Primary Impression: Left wrist injury Qualified Codes: S69.92XA - Unspecified injury of left wrist, hand and finger( s), initial encounter Additional Impressions: Fall on same level as cause of accidental injury Osteopenia Qualified Codes: M85.842 - Other specified disorders of bone density and structure, left hand Arthritis Disposition: 01 HOME, SELF-CARE Condition: Improved Departure-Patient Inst. Decision time for Depature: 11:40 Referrals: MEENA PRUITT MD (PCP/Family) Primary Care Physician Patient Instructions: How to Use a Shoulder Sling, Osteoporosis Add. Discharge Instructions: You may continue taking your Tylenol arthritis medication for mild pain. For more severe pain, use hydrocodone as prescribed. If you take hydrocodone, consider taking an pjaw-pdb-xyusqfa stool softener such as Colace to prevent constipation. Follow-up with Dr. Pruitt later this week. She may wish to repeat x-rays if you're not improving. Also talk with Dr. Pruitt about urethritis. You may need to be tested for rheumatoid arthritis and treated appropriately if you have it. Also talk with Dr. Pruitt about your thin bones (osteopenia). Use a wrist splint as needed as long as you have pain in the wrist. The sling may also be used for comfort. You may continue icing in 20 minute intervals to help with pain and swelling. All discharge instructions reviewed with patient and/or family. Voiced understanding. Scripts Hydrocodone/Acetaminophen (Hydrocodone-Acetamin 5-325 mg) 1 Each Tablet 1 TAB PO Q6H PRN for PAIN-MODERATE TO SEVERE MDD 10, #15 TAB Prov: KETTY NELSON MD 11/10/18 Copy Copies To 1: MEENA PRUITT MD, JOSHUA T MD Nov 10, 2018 11:47
[2018-11-10] MEDS ORDERED: HYDR-3812 PO (11:57)
[2018-11-10 12:00] VITALS: BP 166/76
== END 2018-11-10 12:00 | disposition home or self-care (01) ==
LOC: EDUNIT# 10:13 → ER 10:15
DX: S69.92XA Unspecified injury of left wrist, hand and finger(s), initial encounter (principal); M85.89 Other specified disorders of bone density and structure, multiple sites; M19.032 Primary osteoarthritis, left wrist; J44.9 Chronic obstructive pulmonary disease, unspecified; E78.00 Pure hypercholesterolemia, unspecified; I12.9 Hypertensive chronic kidney disease with stage 1 through stage 4 chronic kidney disease, or unspecified chronic kidney disease; N18.9 Chronic kidney disease, unspecified; K21.9 Gastro-esophageal reflux disease without esophagitis; F32.9 Major depressive disorder, single episode, unspecified; G31.84 Mild cognitive impairment of uncertain or unknown etiology; R40.2142 Coma scale, eyes open, spontaneous, at arrival to emergency department; R40.2252 Coma scale, best verbal response, oriented, at arrival to emergency department; R40.2362 Coma scale, best motor response, obeys commands, at arrival to emergency department; Z87.19 Personal history of other diseases of the digestive system; Z90.710 Acquired absence of both cervix and uterus; Z88.0 Allergy status to penicillin; Z88.2 Allergy status to sulfonamides; Z79.52 Long term (current) use of systemic steroids; Z87.891 Personal history of nicotine dependence; Z98.51 Tubal ligation status; Z98.890 Other specified postprocedural states; Z79.82 Long term (current) use of aspirin; W18.30XA Fall on same level, unspecified, initial encounter; Y92.007 Garden or yard of unspecified non-institutional (private) residence as the place of occurrence of the external cause
CPT/HCPCS: 73110

== ENCOUNTER 2019-04-03 09:50 | Outpatient (RCR) | payer MEDICARE ==
[~2019-04-03 09:50] MED LIST changes: +HYDR-3812 PO
== END 2019-04-03 10:58 | disposition home or self-care (01) ==
PROVIDERS: ATTEND Family Medicine
DX: M54.6 Pain in thoracic spine (principal)

== ENCOUNTER → 2019-06-09 | Outpatient (CLI) | payer MEDICARE ==
--- NOTE | 2019-06-09 14:47 | Diagnostic Imaging Report ---
INDICATION: Fall with back pain. TECHNIQUE: Three views of the thoracic spine were obtained. FINDINGS: The alignment is normal. The vertebral body heights are well maintained. There are degenerative changes. There is no fracture or traumatic subluxation. IMPRESSION: Diffuse thoracic spondylosis without acute fracture or traumatic subluxation. Dictated by: Dictated on workstation # [id number]
--- NOTE | 2019-06-09 14:49 | Diagnostic Imaging Report ---
INDICATION: Back pain. TECHNIQUE: Three views of the lumbar spine were obtained. FINDINGS: There is some left convexity degenerative lumbar rotoscoliosis. The vertebral body heights are well-maintained. There is multilevel degenerative disc disease. There is no spondylolysis or spondylolisthesis. There is some lower lumbar hypertrophic degenerative facet disease. IMPRESSION: Diffuse lumbar spondylosis and degenerative disc disease. Dictated by: Dictated on workstation # [id number]
== END ==
LOC: RAD 14:09
PROVIDERS: ATTEND Family Medicine
DX: M47.816 Spondylosis without myelopathy or radiculopathy, lumbar region (principal); M51.36 Other intervertebral disc degeneration, lumbar region; M47.814 Spondylosis without myelopathy or radiculopathy, thoracic region
CPT/HCPCS: 72072; 72100

== ENCOUNTER → 2019-06-24 | Outpatient (CLI) | payer MEDICARE ==
--- NOTE | 2019-06-24 16:01 | Diagnostic Imaging Report ---
INDICATION: Asymptomatic postmenopausal screening COMPARISON: Baseline FINDINGS: AP Spine L1-L4: [BMD (g/cm2): 0.914] [T-Score: -2.4] [Z-Score: -0.3] [BMD Previous: na] [BMD % Change: na] LT Hip Neck: [BMD (g/cm2): 0.680] [T-Score: -2.6] [Z-Score: -0.5] LT Hip Total: [BMD (g/cm2):0.692] [T-Score:-2.5] [Z-Score: -0.6] [BMD Previous: na] [BMD % Change: na] RT Hip Neck: [BMD (g/cm2):0.725] [T-Score:-2.2] [Z-Score:-0.2] RT Hip Total: [BMD (g/cm2):0.692] [T-score:-2.5] [Z-Score:-0.6] [BMD Previous:na] [BMD % Change:na] *Indicates significant change from prior examination based on 95% confidence level. World Health Organization criteria for BMD interpretation classify patients as Normal (T-score at or above -1.0), Osteopenic (T-score between -1.0 and -2.5) or Osteoporotic (T-score at or below -2.5). LIMITATIONS AND MODIFICATION: None. FRACTURE RISK (FRAX SCORE): The ten year probability of (%): Major Osteoporotic Fracture: [na] Hip Fracture: [na] IMPRESSION: 1. Osteoporosis. 2. Baseline examination. 3. See below National Osteoporosis Foundation guidelines on when to potentially initiate pharmacologic therapy. Based on the National Osteoporosis Foundation Guidelines, pharmacologic treatment should be initiated in any of the following, unless clinical conditions suggest otherwise: * Any patient with prior fragility fracture of the hip or vertebrae. A spine fracture indicates 5X risk for subsequent spine fracture and 2X risk for subsequent hip fracture. * Osteoporosis (T-score <-2.5). * Postmenopausal women and men age 50 and older with low bone mass/osteopenia (T-score between -1.0 and -2.5) by DXA and 10-year major osteoporotic fracture greater than 20% or a 10-year probability of hip fracture greater than 3%. These fracture risks are supplied above in the FRAX score, if applicable. * Clinician judgement and/or patient preferences may indicate treatment for people with 10-year fracture probabilities above or below these levels. Dictated by: Dictated on workstation # [id number]
== END ==
LOC: RAD 08:53
PROVIDERS: ATTEND Family Medicine
DX: M81.0 Age-related osteoporosis without current pathological fracture (principal); M54.6 Pain in thoracic spine; M54.5 Low back pain; Z78.0 Asymptomatic menopausal state
CPT/HCPCS: 77080

== ENCOUNTER → 2020-01-20 | Outpatient (CLI) | payer MEDICARE ==
[~2020-01-20] MED LIST changes: +ACHD5005 PO; -HYDR-3812 PO
--- NOTE | 2020-01-20 16:30 | Diagnostic Imaging Report ---
EXAMINATION: Right hip radiographs, 2 views. COMPARISON: None. HISTORY: 75-year-old female, right hip pain. History of bisphosphonate use. FINDINGS: There is no evidence of an atypical stress fracture involving the right proximal femur. The right hip is not dislocated. There is no joint space loss of the right hip, osteophyte formation, or subchondral cystic change. There is no identified acute fracture. There is no identified bone lesion. There are advanced disc degenerative changes at L5-S1. IMPRESSION: 1. Unremarkable appearance of the right hip joint. 2. No evidence of an atypical proximal femoral stress fracture. 3. Advanced disc degenerative changes of the lower lumbar spine. Dictated by: Dictated on workstation # [id number]
== END ==
LOC: RAD 13:58
PROVIDERS: ATTEND Nurse Practitioner Family
DX: M47.896 Other spondylosis, lumbar region (principal); M25.551 Pain in right hip; Z79.899 Other long term (current) drug therapy
CPT/HCPCS: 73502

== ENCOUNTER 2020-02-27 21:38 | Inpatient (IN) | payer MEDICARE, OTHER ==
[~2020-02-27] VITALS: Ht 162.5 cm; Wt 63.8 kg
[2020-02-27] MEDS ORDERED: FLUO20CA46 PO (21:48)
[2020-02-27] MEDS ORDERED: AMLO5TAB9 (21:48)
[2020-02-27] MEDS ORDERED: DICL100G31 TOP (21:48)
[2020-02-27] MEDS ORDERED: PANT40TA3 PO (21:48)
[2020-02-27] MEDS ORDERED: ATOR20TA66 PO (21:48)
[2020-02-27] MEDS ORDERED: LISI-552 PO (21:48)
[2020-02-27] MEDS ORDERED: ALEN70TA5 PO (21:48)
[2020-02-27] MEDS ORDERED: fentaNYL INJECTION 100 MCG/2 ML AMP IVP ONE (22:00)
--- NOTE | 2020-02-27 22:08 | ED Fall/Injury ---
General Chief Complaint: Trauma-Non Activation Stated Complaint: R HIP PAIN Nursing Triage Note: tripped in yard, c/o right posterior hip/lower back pain. denies loc/other injuries. Source: patient, EMS Exam Limitations: no limitations History of Present Illness Date Seen by Provider: Feb 27, 2020 Time Seen by Provider: 21:39 Initial Comments This 75-year-old woman presents to the emergency room via EMS after having a fall in her yard when she tripped on uneven concrete. She denies any lightheadedness, dizziness, or other prodrome. She fell on her right side onto the right hip and now complains of right hip pain and lower back pain. She denies any head injury or loss of consciousness. She laid on the ground for a little while and then crawled to a fence where she was able to pull herself up. She then used a board for a crutch and was able to get into the house and activated EMS. The incident around 19:30. Location Injury Occurred: home Allergies and Home Medications Allergies Coded Allergies: Penicillins (Unverified Allergy, Intermediate, ITCHING ALL OVER, 06/06/16) Sulfa (Sulfonamide Antibiotics) (Unverified Allergy, Unknown, ITCHINESS TO LEGS, 02/27/14) sucralfate (Unverified Allergy, Unknown, 02/28/20) Home Medications Aspirin 81 Mg Tablet.dr, 81 MG PO 1900, (Reported) Calcium Carb & Cit/Vitamin D3 1 Each Tablet.er, 1 TAB PO BID, (Reported) 630MG/500IU Cyanocobalamin 1,000 Mcg Tab.subl, 1,000 MCG SL DAILY, (Reported) Dicyclomine HCl 20 Mg Tablet, 20 MG PO TID, (Reported) Docusate Sodium 100 Mg Capsule, 200 MG PO 1900, (Reported) Fish Oil/Dha/Epa 1 Each Capsule, 1 CAP PO DAILY, (Reported) Metoprolol Tartrate 50 Mg Tablet, 25 MG PO BID, (Reported) Multivitamin 1 Each Tablet, 1 TAB PO DAILY, (Reported) Pyridoxine Hcl 100 Mg Tablet, 100 MG PO 1900, (Reported) Simvastatin 80 Mg Tablet, 80 MG PO 1900, (Reported) Vitamin E Mixed 400 Unit Tablet, 400 UNIT PO DAILY, (Reported) Patient Home Medication List Home Medication List Reviewed: Yes Review of Systems Review of Systems Constitutional: no symptoms reported Eyes: No Symptoms Reported Ears, Nose, Mouth, Throat: no symptoms reported Respiratory: no symptoms reported Cardiovascular: no symptoms reported Gastrointestinal: no symptoms reported Genitourinary: no symptoms reported : No Musculoskeletal: see HPI Skin: no symptoms reported Psychiatric/Neurological: See HPI Past Nkgmyor-Ijjfzf-Kqiyce Hx Past Med/Social Hx: Reviewed Nursing Past Med/Soc Hx Patient Social History Alcohol Use: Denies Use Recreational Drug Use: No Smoking Status: Former Smoker Former Smoker, Quit: Nov 04, 1968 2nd Hand Smoke Exposure: No Recent Foreign Travel: No Contact w/Someone Who Travel: No Recent Infectious Disease Expo: No Recent Hopitalizations: No Physical Abuse: No Sexual Abuse: No Mistreated: No Fear: No Immunizations Up To Date Tetanus Booster (TDap): Unknown Date of Pneumonia Vaccine: May 06, 2013 Date of Influenza Vaccine: May 08, 2018 Seasonal Allergies Seasonal Allergies: Yes Past Medical History Surgeries: Yes (egd/colonoscopy) Eye Surgery, Gallbladder, Tubal Ligation Respiratory: Yes Asthma, COPD Cardiac: Yes High Cholesterol, Hypertension Neurological: No : No 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 Disorders: 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, 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 Sexually Transmitted Disease: Yes HIV/AIDS: No Genitourinary: Yes (STAGE 3 KIDNEY DISEASE 11/10/18) Renal Failure Gastrointestinal: Yes Gastroesophageal Reflux, Ulcer Musculoskeletal: Yes Arthritis Endocrine: No Cataract Cancer: No Psychosocial: Yes Anxiety, Depression Integumentary: No Blood Disorders: No Adverse Reaction/Blood Tranf: No (N/A) Family Medical History Stroke, Vascular Disease Physical Exam Vital Signs Vital Signs - First Documented 02/27/20 21:38 Temp 36.4 Pulse 80 Resp 16 B/P (MAP) 99/64 (76) Pulse Ox 97 O2 Delivery Room Air Capillary Refill : Less Than 3 Seconds Height, Weight, BMI Height: 5'3.00" Weight: 125lbs. 0.0oz. [id number]; 22.00 BMI Method:Stated General Appearance: WD/WN, no apparent distress HEENT: PERRL/EOMI, normal ENT inspection Neck: normal inspection Cardiovascular: regular rate, rhythm, no edema, no murmur Respiratory: chest non-tender, lungs clear, normal breath sounds, no respiratory distress Gastrointestinal: normal bowel sounds, non tender, soft Back: vertebral tenderness (mild in the lumbar spine) Extremities: normal inspection, other (right lateral hip tender to palpation. 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, no motor/sensory deficits, alert, normal mood/affect, oriented x 3 Skin: normal color, warm/dry Powers Coma Score Best Eye Response: (4) Open Spontaneously Best Verbal Response: (5) Oriented Best Motor Response: (6) Obeys Commands Paramjit Total: 15 Progress/Results/Core Measures Results/Orders Lab Results Laboratory Tests Test 02/27/20 00:05 02/27/20 22:35 Range/Units Urine Color YELLOW Urine Clarity CLEAR Urine pH 5.5 5-9 Urine Specific Buna <=1.005 1.016-1.022 Urine Protein NEGATIVE NEGATIVE Urine Glucose (UA) NEGATIVE NEGATIVE Urine Ketones NEGATIVE NEGATIVE Urine Nitrite NEGATIVE NEGATIVE Urine Bilirubin NEGATIVE NEGATIVE Urine Urobilinogen 0.2 < = 1.0 MG/DL Urine Leukocyte Esterase NEGATIVE NEGATIVE Urine RBC (Auto) NEGATIVE NEGATIVE Urine RBC NONE /HPF Urine WBC NONE /HPF Urine Squamous Epithelial Cells 5-10 /HPF Urine Crystals NONE /LPF Urine Bacteria NEGATIVE /HPF Urine Casts NONE /LPF Urine Mucus SMALL H /LPF Urine Culture Indicated NO White Blood Count 13.7 H 4.3-11.0 10^3/uL Red Blood Count 3.92 L 4.35-5.85 10^6/uL Hemoglobin 11.9 11.5-16.0 G/DL Hematocrit 36 35-52 % Mean Corpuscular Volume 91 80-99 FL Mean Corpuscular Hemoglobin 30 25-34 PG Mean Corpuscular Hemoglobin Concent 33 32-36 G/DL Red Cell Distribution Width 12.9 10.0-14.5 % Platelet Count 153 130-400 10^3/uL Mean Platelet Volume 10.9 H 7.4-10.4 FL Neutrophils (%) (Auto) 85 H 42-75 % Lymphocytes (%) (Auto) 8 L 12-44 % Monocytes (%) (Auto) 6 0-12 % Eosinophils (%) (Auto) 0 0-10 % Basophils (%) (Auto) 0 0-10 % Neutrophils # (Auto) 11.7 H 1.8-7.8 X 10^3 Lymphocytes # (Auto) 1.1 1.0-4.0 X 10^3 Monocytes # (Auto) 0.9 0.0-1.0 X 10^3 Eosinophils # (Auto) 0.0 0.0-0.3 10^3/uL Basophils # (Auto) 0.0 0.0-0.1 10^3/uL Sodium Level 140 135-145 MMOL/L Potassium Level 3.6 3.6-5.0 MMOL/L Chloride Level 107 98-107 MMOL/L Carbon Dioxide Level 20 L 21-32 MMOL/L Anion Gap 13 5-14 MMOL/L Blood Urea Nitrogen 15 7-18 MG/DL Creatinine 1.03 0.60-1.30 MG/DL Estimat Glomerular Filtration Rate 52 BUN/Creatinine Ratio 15 Glucose Level 129 H 70-105 MG/DL Calcium Level 9.0 8.5-10.1 MG/DL My Orders Orders - KETTY NELSON MD Ct Lumbar Spine Wo (02/27/20 21:47) Ct Pelvis Wo (02/27/20 21:47) Ua Culture If Indicated (02/27/20 21:47) Ed Iv/Invasive Line Start (02/27/20 21:47) Fentanyl Injection (Sublimaze Injection (02/27/20 22:00) Basic Metabolic Panel (02/27/20 22:08) Cbc With Automated Diff (02/27/20 22:08) Ondansetron Injection (Zofran Injectio (02/27/20 22:30) Fentanyl Injection (Sublimaze Injection (02/28/20 00:15) Wiley Cath (02/28/20 00:08) Medications Given in ED Current Medications Medications Dose Ordered Sig/Saige Route Start Time Stop Time Status Last Admin Dose Admin Fentanyl Citrate 25 mcg ONCE ONCE IVP 02/27/20 22:00 02/27/20 22:01 DC 02/27/20 22:00 25 MCG Fentanyl Citrate 50 mcg ONCE ONCE IVP 02/28/20 00:15 02/28/20 00:16 DC 02/28/20 00:20 50 MCG Ondansetron HCl 8 mg ONCE ONCE IVP 02/27/20 22:30 02/27/20 22:31 DC 02/27/20 22:35 8 MG Vital Signs/I&O 02/27/20 02/27/20 21:38 22:00 Temp 36.4 36.4 Pulse 80 Resp 16 B/P (MAP) 99/64 (76) Pulse Ox 97 O2 Delivery Room Air Blood Pressure Mean: 76 Progress Progress Note : Time: 00:10 Progress Note Patient was found to have fractures of both right rami and widening of the SI joint on the right. No orthopedic coverage is available at [facility] this weekend. Case was discussed with Dr. Squires and Dr. Mix at [facility] in [place]. They declined transfer the patient stating subspecialty services are necessary for an injury of this type. They recommended transfer to [facility].. Unfortunately [facility] was on admission diversion. [facility] in [place] was also on diversion. Ultimately I discussed the case with Dr. Erfen Francis for [facility]. He states this patient does not have an immediate surgical problem. Patient was ultimately admitted to [facility] for supportive care and possible rehabilitation evaluation early next week. Diagnostic Imaging Diagonstic Imaging: CT Plain Films/CT/US/NM/MRI: pelvis Comments CT pelvis viewed by me and [employer] report reviewed. Report is as follows: 1. Acute mildly comminuted fractures involving the right parasymphyseal bone to include the adjacent areas of the right superior ramus and also the right in ferior pubic ramus. 2. Intact hip joints and pubic symphysis. Departure Communication (Admissions) Time/Spoke to Admitting Phy: 01:00 Dr. Hemanth Villalba Time/Spoke to Consulting Phy: 01:07 Dr. Kirk Impression Primary Impression: Pelvic fracture Qualified Codes: S32.810A - Multiple fractures of pelvis with stable disruption of pelvic ring, initial encounter for closed fracture Additional Impression: Fall on same level Qualified Codes: W18.30XA - Fall on same level, unspecified, initial encounter Disposition: 01 HOME, SELF-CARE Condition: Improved Admissions Decision to Admit Reason: Admit from ER (General) Decision to Admit/Date: Feb 28, 2020 Time/Decision to Admit Time: 01:00 Departure-Patient Inst. Referrals: MEENA RIVERA MD (PCP/Family) Primary Care Physician KETTY NELSON MD Feb 27, 2020 22:07
[2020-02-27] MEDS ORDERED: ONDANSETRON 4 MG/2 ML (SDV) Z0FRAN IVP ONE (22:30)
[2020-02-27 22:43] LABS: BASOPHILS % (AUTO) 0 % (0-10); EOSINOPHILS % (AUTO) 0 % (0-10); HEMATOCRIT 36 % (35-52); HEMOGLOBIN 11.9 G/DL (11.5-16.0); LYMPHOCYTES # (AUTO) 1.1 X 10^3 (1.0-4.0); LYMPHOCYTES % (AUTO) 8 % (12-44); MEAN CORPUSCULAR HEMOGLOBIN 30 PG (25-34); MEAN CORPUSCULAR HGB CONC 33 G/DL (32-36); MEAN CORPUSCULAR VOLUME 91 FL (80-99); MEAN PLATELET VOLUME 10.9 FL (7.4-10.4); MONOCYTES # (AUTO) 0.9 X 10^3 (0.0-1.0); MONOCYTES % (AUTO) 6 % (0-12); NEUTROPHILS # (AUTO) 11.7 X 10^3 (1.8-7.8); NEUTROPHILS % (AUTO) 85 % (42-75); PLATELET COUNT 153 10^3/uL (130-400); RED CELL DISTRIBUTION WIDTH 12.9 % (10.0-14.5); WHITE BLOOD COUNT 13.7 10^3/uL (4.3-11.0)
[2020-02-27 22:54] LABS: POTASSIUM 3.6 MMOL/L (3.6-5.0)
[2020-02-27 23:00] LABS: CREATININE SERUM 1.03 MG/DL (0.60-1.30)
[2020-02-28] VITALS (7 sets, daily range): BP systolic 102–131; BP diastolic 56–85
[2020-02-28 00:09] LABS: BILIRUBIN,URINE NEGATIVE (NEGATIVE); CLARITY,URINE CLEAR; COLOR,URINE YELLOW; GLUCOSE, URINE (UA) NEGATIVE (NEGATIVE); KETONES,URINE NEGATIVE (NEGATIVE); LEUKOCYTE ESTERASE ,URINE NEGATIVE (NEGATIVE); NITRITE,URINE NEGATIVE (NEGATIVE); PH,URINE 5.5 (5-9); PROTEIN,URINE NEGATIVE (NEGATIVE)
[2020-02-28] MEDS ORDERED: fentaNYL INJECTION 100 MCG/2 ML AMP IVP ONE (00:15)
[2020-02-28 00:25] LABS: BACTERIA,URINE NEGATIVE /HPF
--- OUTSIDE RECORDS SUMMARY | 2020-02-28 02:30 | XMS REPORT ---
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 Active 862796372 Problem Essential hypertension I10 Active 52079327 Problem Stage 3 chronic kidney disease N18.3 Active 505069821 Problem Memory loss R41.3 Active 23862498 Problem Primary insomnia F51.01 Active 397 2004 Problem Nocturnal hypoxia G47.34 Active 38 1343821 Problem Hyperlipidemia, unspecified hyperlipidemia E78.5 Active 08491696 Problem Gastroesophageal reflux disease without esophagitis K21.9 Active 253586861 Problem Anxiety F41.9 Active 00415785 Problem Other chronic gastritis without hemorrhage K29.50 Active 6922476 ALLERGIES No Information ENCOUNTERS Encounter Location Date Diagnosis [place] [id number] [facility] [id number] [address] [place] [address] Nov, [facility] [address] [facility] [id number] [address] [place] [address] Oct, [place] [address] [address] [facility] [id number] [address] [place] [address] Oct, [place] [address] [address] [facility] [id number] [address] [place] [address] Oct, CN palsy, left eye H49.22 ; Primary insomnia F51.01 ; Pulsatile tinnitus of left ear H93.A2 and Seborrheic keratosis L82.1 [facility] [address] [place] [id number] [address] [place] [address] Aug, CN palsy, left eye H49.22 ; Essential hypertension I10 ; Arthralgia, unspecified joint M25.50 and Primary insomnia F51.01 [facility] [address] [place] [id number] [place] [address] Jul, Cranial nerve palsy G52.9 [facility] [address] [place] [id number] [place] [address] Jul, Cranial nerve palsy G52.9 ; Stage 3 chronic kidney disease N18.3 ; Family history of embolic stroke Z82.3 and Numbness of left hand R20.0 [place] [address] [place] [id number] [place] [address] Jun, Anxiety F41.9 and Essential hypertension I10 [place] [address] [address] Jun, [facility] [address] [place] [id number] [place] [address] Jun, Essential hypertension I10 [place] [address] [address] May, [facility] [address] [place] [id number] [place] [address] May, Herpes zoster without compli cation B02.9 and Stage 3 chronic kidney disease N18.3 [facility] [address] [place] [id number] [address] [place] [address] Mar, Essential hypertension I10 [facility] [address] [place] [id number] [place] [address] Feb, [facility] [address] [place] [id number] [address] [place] [address] Feb, [facility] [address] [address] Feb, Essential hypertension I10 a nd Acute midline low back pain without sciatica M54.5 [facility] [address] [address] December, Insect bite (nonvenomous) of lower back and pelvis, initial encounter S30.860A and Bitten or stung by nonvenomous insect and other nonvenomous arthropods, initial encounter W57.XXXA [facility] [address] [address] Nov, Pleurisy R09.1 [place] [address] [address] Nov, [facility] [address] [address] Oct, Hypoxemia R09.02 and Fatigue , unspecified type R53.83 [place] [address] [address] 12 Sep, 2017 Other chronic gastritis with out hemorrhage K29.50 ; Gastroesophageal reflux disease without esophagitis K21.9 ; Hyperlipidemia, unspecified hyperlipidemia E78.5 and Arthralgia, unspecified joint M25.50 [facility] [address] [address] Aug, Hypertriglyceridemia E78.1 [place] [address] [address] 02 May, 2017 Anxiety F41.9 [place] [address] [address] 21 Apr, 2017 Hyperlipidemia, unspecified hyperlipidemia E78.5 ; Gastroesophageal reflux disease without esophagitis K21.9 ; Forgetfulness R68.89 ; Essential hypertension I10 and Anxiety F41.9 [place] [address] [address] 14 Apr, 2017 Hypertriglyceridemia E78.1 [place] [address] [place] [address] Mar, Medicare annual wellness vis it, subsequent Z00.00 ; Hyperlipidemia, unspecified hyperlipidemia E78.5 and Essential hypertension I10 [place] [address] [address] Mar, Forgetfulness R68.89 ; Fatig ue, unspecified type R53.83 and Essential hypertension I10 [place] [address] [address] Mar, Primary osteoarthritis, 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 and Strain of left trapezius muscle, initial encounter S46.812A [place] [address] Feb, Left wrist pain M25.532 [place] [address] [address] 07 Feb, 2017 Left wrist pain M25.532 [place] [address] [address] December, Hypertriglyceridemia E78.1 ; Encounter for immunization Z23 ; Forgetfulness R68.89 and Fatigue, unspecified type R53.83 [place] [address] [address] Jun, Forgetfulness R68.89 and Rhi nitis, unspecified type J31.0 [place] [address] [address] May, [address] [address] May, Hypoxemia R09.02 ; Memory lo ss R41.3 ; Arthralgia, unspecified joint M25.50 and Rhinitis, unspecified type J31.0 [place] [address] [address] [place] [id number] [address] [place] [address] Mar, Vertigo R42 ; Orthostatic hy potension I95.1 and Chronic gastritis without bleeding, unspecified gastritis type K29.50 [place] [address] [facility] [id number] [address] [place] [address] Feb, [place] [address] [address] Feb, Forgetfulness R68.89 [place] [address] [place] [id number] [place] [address] Jan, [place] [address] [address] Jan, Gastroesophageal reflux dise ase without esophagitis K21.9 ; Fatigue, unspecified type R53.83 ; Weakness R53.1 ; Forgetfulness R68.89 ; Hyperlipidemia, unspecified hyperlipidemia E78.5 and Hearing abnormally acute, unspecified laterality H93.239 [place] [address] [address] Oct, [place] [address] [address] Aug, Upper respiratory tract infe ction, unspecified type J06.9 [place] [address] [address] Aug, [place] [address] [place] [id number] [place] [address] Jun, Acute idiopathic gout, unspe cified site M10.00 ; Encounter for immunization Z23 ; Hyperlipidemia, unspecified hyperlipidemia E78.5 ; Gastroesophageal reflux disease without esophagitis K21.9 and Fatigue, unspecified type R53.83 [place] [address] [place] [id number] [address] [place] [address] 17 Jan, 2015 Esophageal reflux 530.81 and Irritable bowel syndrome 564.1 [place] [address] [place] [id number] [address] [place] [address] 15 Jan, 2015 [place] [address] [place] [id number] [place] [address] Jan, Gastritis 535.50 ; Hx of col onic polyp V12.72 and Positional vertigo 386.11 [facility] [address] [facility] [id number] [address] [place] [address] Jan, [facility] [address] [facility] [id number] [address] [place] [address] Jan, Dizziness 780.4 and Nausea & vomiting 787.01 [facility] [address] [facility] [id number] [address] [place] [address] Nov, [facility] [address] [id number] [address] [place] [address] Nov, [facility] [address] [facility] [id number] [address] [place] [address] Nov, [facility] [address] [facility] [id number] [address] [place] [address] Nov, [facility] [address] [facility] [id number] [address] [place] [address] Oct, [facility] [address] [facility] [id number] [address] [place] [address] Oct, [facility] [address] [facility] [id number] [address] [place] [address] Oct, [facility] [address] [facility] [id number] [address] [place] [address] Aug, [facility] [address] [facility] [id number] [address] [place] [address] Aug, [facility] [address] [facility] [id number] [address] [place] [address] Aug, [facility] [address] [facility] [id number] [address] [place] [address] Jul, [facility] [address] [facility] [id number] [address] [place] [address] Jul, [facility] [address] [facility] [id number] [address] [place] [address] Jul, [facility] [address] [id number] [address] [place] [address], [place] [address] Jul, [facility] [address] [id number] [address] [place] [address], [place] [address] Jul, [facility] [address] [id number] [address] [place] [address], [place] [address] Jul, [facility] [address] [id number] [address] [place] [address], [place] [address] Jul, [facility] [address] [id number] [address] [place] [address], [place] [address] Jul, [facility] [address] [id number] [address] [place] [address], [place] [address] Jul, [facility] [address] [id number] [address] [place] [address], [place] [address] Jul, [facility] [address] [id number] [address] [place] [address], [place] [address] Jul, [facility] [address] [id number] [address] [place] [address], [place] [address] Jun, [facility] [address] [id number] [address] [place] [address], [place] [address] 14 Jun, 2014 [facility] [address] [id number] [address] [place] [address], [place] [address] Jun, [facility] [address] [id number] [address] [place] [address], [place] [address] 10 Jun, 2014 [facility] [address] [id number] [address] [place] [address], [place] [address] 17 Apr, 2014 [facility] [address] [id number] [address] [place] [address], [place] [address] 17 Apr, 2014 [facility] [address] [id number] [address] [place] [address], [place] [address] 17 Apr, 2014 [facility] [address] [id number] [address] [place] [address], [place] [address] Apr, [facility] [address] [id number] [address] [place] [address], [place] [address] Feb, [facility] [address] [id number] [address] [place] [address], [place] [address] Feb, [facility] [address] [id number] [address] [place] [address], [place] [address] Feb, [facility] [address] [id number] [address] [place] [address], [place] [address] Feb, [facility] [address] [id number] [address] [place] [address], [place] [address] Jan, [facility] [address] [id number] [address] [place] [address], [place] [address] Jan, [facility] [address] [id number] [address] [place] [address], [place] [address] Jan, [facility] [address] [id number] [address] [place] [address], [place] [address] Jan, [facility] [address] [id number] [address] [place] [address], [place] [address] December, [facility] [address] [id number] [address] [place] [address], [place] [address] December, [facility] [address] [id number] [address] [place] [address], [place] [address] December, [facility] [address] [id number] [address] [place] [address], [place] [address] December, [facility] [address] [id number] [address] [place] [address], [place] [address] December, [facility] [address] [id number] [address] [place] [address], [place] [address] December, [facility] [address] [id number] [address] [place] [address], [place] [address] Oct, [facility] [address] [id number] [address] [place] [address], [place] [address] Oct, [facility] [address] [id number] [address] [place] [address], [place] [address] Sep, [facility] [address] [id number] [address] [place] [address], [place] [address] Sep, [facility] [address] [id number] [address] [place] [address], [place] [address] Aug, [facility] [address] [id number] [address] [place] [address], [place] [address] Aug, [facility] [address] [id number] [address] [place] [address], [place] [address] Jul, [facility] [address] [id number] [address] [place] [address], [place] [address] Jul, [facility] [address] [id number] [address] [place] [address], [place] [address] May, [facility] [address] [id number] [address] [place] [address], [place] [address] May, [facility] [address] [id number] [address] [place] [address] May, [facility] [address] [id number] [address] [place] [address], [place] [address] Apr, [facility] [address] [id number] [address] [place] [address] Feb, [facility] [address] [id number] [address] [place] [address], [place] [address] Feb, [facility] [address] [id number] [address] [place] [address], [place] [address] Feb, [facility] [address] [id number] [address] [place] [address], [place] [address] Feb, [facility] [address] [id number] [address] [place] [address] Jan, [facility] [address] [id number] [address] [place] [address], [place] [address] Jan, [facility] [address] [id number] [address] [place] [address], [place] [address] December, [facility] [address] [id number] [address] [place] [address], [place] [address] Nov, [facility] [address] [id number] [address] [place] [address], [place] [address] Nov, [facility] [address] [id number] [address] [place] [address], [place] [address] Oct, [facility] [address] [id number] [address] [place] [address], [place] [address] Oct, [facility] [address] [id number] [address] [place] [address], [place] [address] Oct, [facility] [address] [id number] [address] [place] [address], [place] [address] Aug, [facility] [address] [id number] [address] [place] [address], [place] [address] Aug, [facility] [address] [id number] [address] [place] [address], [place] [address] Jul, [facility] [address] [id number] [address] [place] [address], [place] [address] Jul, [facility] [address] [id number] [address] [place] [address], [place] [address] Jul, [facility] [address] [id number] [address] [place] [address], [place] [address] Jul, [facility] [address] [id number] [address] [place] [address], [place] [address] Jun, [facility] [address] [id number] [address] [place] [address], [place] [address] Jun, [facility] [address] [id number] [address] [place] [address], [place] [address] May, [facility] [address] [id number] [address] [place] [address], [place] [address] Mar, [facility] [address] [id number] [address] [place] [address], [place] [address] Mar, [facility] [address] [id number] [address] [place] [address], [place] [address] Jan, [facility] [address] [id number] [address] [place] [address], [place] [address] Jan, [facility] [address] [id number] [address] [place] [address], [place] [address] December, [facility] [address] [id number] [address] [place] [address], [place] [address] December, [facility] [address] [id number] [address] [place] [address], [place] [address] December, [facility] [address] [id number] [address] [place] [address], [place] [address] December, [facility] [address] [id number] [address] [place] [address], [place] [address] Sep, [facility] [address] [id number] [address] [place] [address], [place] [address] Sep, [facility] [address] [id number] [address] [place] [address], [place] [address] Jun, [facility] [address] [id number] [address] [place] [address], [place] [address] 14 Jun, 2011 [facility] [address] [id number] [address] [place] [address], [place] [address] 18 May, 2011 [facility] [address] [id number] [address] [place] [address], [place] [address] Feb, [facility] [address] [id number] [address] [place] [address], [place] [address] Mar, [facility] [address] [facility] [id number] [address] [place] [address] Nov, [facility] [address] [id number] [address] [place] [address] Sep, [facility] [address] [facility] [id number] [address] [place] [address] Jun, [facility] [address] [id number] [address] [place] [address] Jun, [facility] [address] [facility] [id number] [address] [place] [address] May, [facility] [address] [facility] [id number] [address] [place] [address] Mar, [facility] [address] [facility] [id number] [address] [place] [address] December, IMMUNIZATIONS Vaccine Route Administration Date Status influenza IIV3 (history) Unknown May 07, 2013 Adminis tered SOCIAL HISTORY Never Assessed REASON FOR VISIT PLAN OF CARE VITAL SIGNS Height 64 in 2013-05-07 Weight 152.2 lbs 2013-05-07 Temperature 97.4 degrees Fahrenheit 2013-05-07 Heart Rate 72 bpm 2013-05-07 Respiratory Rate 16 2013-05-07 Blood pressure systolic 128 mmHg 2013-05-07 Blood pressure diastolic 76 mmHg 2013-05-07 MEDICATIONS Unknown Medications RESULTS No Results PROCEDURES Procedure Date Ordered Result Body Site ADMN FLU VAC NO FEE SCHED SAME DAY May 07, 2013 INSTRUCTIONS MEDICATIONS ADMINISTERED No Known Medications MEDICAL (GENERAL) HISTORY Type Description Date Medical History hearing loss Medical History hypertension Medical History emphysema Medical History COPD Medical History gastric ulcer Medical History gallbladder disease Medical History GERD Medical History osteoporosis Medical History arthritis Medical History backache Medical History anxiety Medical History depression Medical History Nocturnal hypoxia Surgical History orthopedic surgery-left total knee repla cement Surgical History tubal ligation Surgical History intracapsular cataract extra ction with insertion of intraocular lens prosthesis Surgical History cataract removed from left eye 04/2013 Surgical History colonoscopy - small gastric polyp. Dr Albina france 04/2015 Surgical History carotid MRI 07/2018 Hospitalization History Hospitalization for surgery only
--- OUTSIDE RECORDS SUMMARY | 2020-02-28 02:30 | XMS REPORT ---
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 Active 569109617 Problem Essential hypertension I10 Active 96942065 Problem Stage 3 chronic kidney disease N18.3 Active 412077476 Problem Memory loss R41.3 Active 30807111 Problem Primary insomnia F51.01 Active 397 2004 Problem Nocturnal hypoxia G47.34 Active 38 5876841 Problem Hyperlipidemia, unspecified hyperlipidemia E78.5 Active 49425478 Problem Gastroesophageal reflux disease without esophagitis K21.9 Active 821899715 Problem Anxiety F41.9 Active 75451231 Problem Other chronic gastritis without hemorrhage K29.50 Active 9019065 ALLERGIES No Information ENCOUNTERS Encounter Location Date Diagnosis [place] [id number] [facility] [id number] [address] [place] [id number] Nov, [facility] [address] [facility] [id number] [address] [place] [phone] Oct, [place] [address] [facility] [id number] [address] [place] [address] Oct, [place] [address] [place] [id number] [address] [place] [phone] Oct, CN palsy, left eye H49.22 ; Primary insomnia F51.01 ; Pulsatile tinnitus of left ear H93.A2 and Seborrheic keratosis L82.1 [facility] [address] [place] [id number] [address] [place] [phone] Aug, CN palsy, left eye H49.22 ; Essential hypertension I10 ; Arthralgia, unspecified joint M25.50 and Primary insomnia F51.01 [facility] [address] [place] [id number] [place] [phone] Jul, Cranial nerve palsy G52.9 [facility] [address] [place] [id number] [place] [phone] Jul, Cranial nerve palsy G52.9 ; Stage 3 chronic kidney disease N18.3 ; Family history of embolic stroke Z82.3 and Numbness of left hand R20.0 [place] [address] [place] [id number] [place] [phone] Jun, Anxiety F41.9 and Essential hypertension I10 [place] [address] [address] Jun, [facility] [address] [place] [id number] [place] [phone] Jun, Essential hypertension I10 [place] [address] [address] May, [facility] [address] [place] [id number] [place] [phone] May, Herpes zoster without compli cation B02.9 and Stage 3 chronic kidney disease N18.3 [facility] [address] [place] [id number] [address] [place] [phone] Mar, Essential hypertension I10 [facility] [address] [place] [id number] [place] [phone] Feb, [facility] [address] [place] [id number] [address] [place] [phone] Feb, [facility] [address] [address] Feb, Essential hypertension I10 a nd Acute midline low back pain without sciatica M54.5 [facility] [address] [address] December, Insect bite (nonvenomous) of lower back and pelvis, initial encounter S30.860A and Bitten or stung by nonvenomous insect and other nonvenomous arthropods, initial encounter W57.XXXA [facility] [address] [address] Nov, Pleurisy R09.1 [place] [address] [address] Nov, [facility] [address] [address] Oct, Hypoxemia R09.02 and Fatigue , unspecified type R53.83 [place] [address] [address] 12 Sep, 2017 Other chronic gastritis with out hemorrhage K29.50 ; Gastroesophageal reflux disease without esophagitis K21.9 ; Hyperlipidemia, unspecified hyperlipidemia E78.5 and Arthralgia, unspecified joint M25.50 [facility] [address] [address] Aug, Hypertriglyceridemia E78.1 [place] [address] [address] 02 May, 2017 Anxiety F41.9 [place] [address] [address] 21 Apr, 2017 Hyperlipidemia, unspecified hyperlipidemia E78.5 ; Gastroesophageal reflux disease without esophagitis K21.9 ; Forgetfulness R68.89 ; Essential hypertension I10 and Anxiety F41.9 [place] [address] [address] 14 Apr, 2017 Hypertriglyceridemia E78.1 [place] [address] [place] [address] Mar, Medicare annual wellness vis it, subsequent Z00.00 ; Hyperlipidemia, unspecified hyperlipidemia E78.5 and Essential hypertension I10 [place] [address] [address] Mar, Forgetfulness R68.89 ; Fatig ue, unspecified type R53.83 and Essential hypertension I10 [place] [address] [address] Mar, Primary osteoarthritis, 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 and Strain of left trapezius muscle, initial encounter S46.812A [place] [id number] Feb, Left wrist pain M25.532 [place] [address] [address] 07 Feb, 2017 Left wrist pain M25.532 [place] [address] [address] December, Hypertriglyceridemia E78.1 ; Encounter for immunization Z23 ; Forgetfulness R68.89 and Fatigue, unspecified type R53.83 [place] [address] [address] Jun, Forgetfulness R68.89 and Rhi nitis, unspecified type J31.0 [place] [address] [address] May, [address] [address] May, Hypoxemia R09.02 ; Memory lo ss R41.3 ; Arthralgia, unspecified joint M25.50 and Rhinitis, unspecified type J31.0 [place] [address] [place] [id number] [address] [place] [address] Mar, Vertigo R42 ; Orthostatic hy potension I95.1 and Chronic gastritis without bleeding, unspecified gastritis type K29.50 [place] [address] [facility] [id number] [address] [place] [address] Feb, [place] [address] [address] Feb, Forgetfulness R68.89 [place] [address] [place] [id number] [place] [phone] Jan, [place] [address] [address] Jan, Gastroesophageal reflux dise ase without esophagitis K21.9 ; Fatigue, unspecified type R53.83 ; Weakness R53.1 ; Forgetfulness R68.89 ; Hyperlipidemia, unspecified hyperlipidemia E78.5 and Hearing abnormally acute, unspecified laterality H93.239 [place] [address] [address] Oct, [place] [address] [address] Aug, Upper respiratory tract infe ction, unspecified type J06.9 [place] [address] [address] Aug, [place] [address] [place] [id number] [place] [address] Jun, Acute idiopathic gout, unspe cified site M10.00 ; Encounter for immunization Z23 ; Hyperlipidemia, unspecified hyperlipidemia E78.5 ; Gastroesophageal reflux disease without esophagitis K21.9 and Fatigue, unspecified type R53.83 [place] [address] [place] [id number] [address] [place] [address] 17 Jan, 2015 Esophageal reflux 530.81 and Irritable bowel syndrome 564.1 [place] [address] [place] [id number] [address] [place] [address] 15 Jan, 2015 [place] [address] [place] [id number] [place] [address] Jan, Gastritis 535.50 ; Hx of col onic polyp V12.72 and Positional vertigo 386.11 [facility] [address] [facility] [id number] [address] [place] [id number] Jan, [facility] [address] [facility] [id number] [address] [place] [phone] Jan, Dizziness 780.4 and Nausea & vomiting 787.01 [facility] [address] [facility] [id number] [address] [place] [phone] Nov, [facility] [address] [id number] [address] [place] [address] Nov, [facility] [address] [facility] [id number] [address] [place] [phone] Nov, [facility] [address] [facility] [id number] [address] [place] [phone] Nov, [facility] [address] [facility] [id number] [address] [place] [phone] Oct, [facility] [address] [facility] [id number] [address] [place] [phone] Oct, [facility] [address] [facility] [id number] [address] [place] [phone] Oct, [facility] [address] [facility] [id number] [address] [place] [phone] Aug, [facility] [address] [facility] [id number] [address] [place] [phone] Aug, [facility] [address] [facility] [id number] [address] [place] [phone] Aug, [facility] [address] [facility] [id number] [address] [place] [phone] Jul, [facility] [address] [facility] [id number] [address] [place] [phone] Jul, [facility] [address] [facility] [id number] [address] [place] [phone] Jul, [facility] [address] [id number] [address] [place] [address], [place] [address] Jul, [facility] [address] [id number] [address] [place] [address], [place] [address] Jul, [facility] [address] [id number] [address] [place] [address], [place] [address] Jul, [facility] [address] [id number] [address] [place] [address], [place] [address] Jul, [facility] [address] [id number] [address] [place] [address], [place] [address] Jul, [facility] [address] [id number] [address] [place] [address], [place] [address] Jul, [facility] [address] [id number] [address] [place] [address], [place] [address] Jul, [facility] [address] [id number] [address] [place] [address], [place] [address] Jul, [facility] [address] [id number] [address] [place] [address], [place] [address] Jun, [facility] [address] [id number] [address] [place] [address], [place] [address] 14 Jun, 2014 [facility] [address] [id number] [address] [place] [address], [place] [address] Jun, [facility] [address] [id number] [address] [place] [address], [place] [address] 10 Jun, 2014 [facility] [address] [id number] [address] [place] [address], [place] [address] 17 Apr, 2014 [facility] [address] [id number] [address] [place] [address], [place] [address] 17 Apr, 2014 [facility] [address] [id number] [address] [place] [address], [place] [address] 17 Apr, 2014 [facility] [address] [id number] [address] [place] [address], [place] [address] Apr, [facility] [address] [id number] [address] [place] [address], [place] [address] Feb, [facility] [address] [id number] [address] [place] [address], [place] [address] Feb, [facility] [address] [id number] [address] [place] [address], [place] [address] Feb, [facility] [address] [id number] [address] [place] [address], [place] [address] Feb, [facility] [address] [id number] [address] [place] [address], [place] [address] Jan, [facility] [address] [id number] [address] [place] [address], [place] [address] Jan, [facility] [address] [id number] [address] [place] [address], [place] [address] Jan, [facility] [address] [id number] [address] [place] [address], [place] [address] Jan, [facility] [address] [id number] [address] [place] [address], [place] [address] December, [facility] [address] [id number] [address] [place] [address], [place] [address] December, [facility] [address] [id number] [address] [place] [address], [place] [address] December, [facility] [address] [id number] [address] [place] [address], [place] [address] December, [facility] [address] [id number] [address] [place] [address], [place] [address] December, [facility] [address] [id number] [address] [place] [address], [place] [address] December, [facility] [address] [id number] [address] [place] [address], [place] [address] Oct, [facility] [address] [id number] [address] [place] [address], [place] [address] Oct, [facility] [address] [id number] [address] [place] [address], [place] [address] Sep, [facility] [address] [id number] [address] [place] [address], [place] [address] Sep, [facility] [address] [id number] [address] [place] [address], [place] [address] Aug, [facility] [address] [id number] [address] [place] [address], [place] [address] Aug, [facility] [address] [id number] [address] [place] [address], [place] [address] Jul, [facility] [address] [id number] [address] [place] [address], [place] [address] Jul, [facility] [address] [id number] [address] [place] [address], [place] [address] May, [facility] [address] [id number] [address] [place] [address], [place] [address] May, [facility] [address] [id number] [address] [place] [address] May, [facility] [address] [id number] [address] [place] [address], [place] [address] Apr, [facility] [address] [id number] [address] [place] [phone] Feb, [facility] [address] [id number] [address] [place] [address], [place] [address] Feb, [facility] [address] [id number] [address] [place] [address], [place] [address] Feb, [facility] [address] [id number] [address] [place] [address], [place] [address] Feb, [facility] [address] [id number] [address] [place] [phone] Jan, [facility] [address] [id number] [address] [place] [address], [place] [address] Jan, [facility] [address] [id number] [address] [place] [address], [place] [address] December, [facility] [address] [id number] [address] [place] [address], [place] [address] Nov, [facility] [address] [id number] [address] [place] [address], [place] [address] Nov, [facility] [address] [id number] [address] [place] [address], [place] [address] Oct, [facility] [address] [id number] [address] [place] [address], [place] [address] Oct, [facility] [address] [id number] [address] [place] [address], [place] [address] Oct, [facility] [address] [id number] [address] [place] [address], [place] [address] Aug, [facility] [address] [id number] [address] [place] [address], [place] [address] Aug, [facility] [address] [id number] [address] [place] [address], [place] [address] Jul, [facility] [address] [id number] [address] [place] [address], [place] [address] Jul, [facility] [address] [id number] [address] [place] [address], [place] [address] Jul, [facility] [address] [id number] [address] [place] [address], [place] [address] Jul, [facility] [address] [id number] [address] [place] [address], [place] [address] Jun, [facility] [address] [id number] [address] [place] [address], [place] [address] Jun, [facility] [address] [id number] [address] [place] [address], [place] [address] May, [facility] [address] [id number] [address] [place] [address], [place] [address] Mar, [facility] [address] [id number] [address] [place] [address], [place] [address] Mar, [facility] [address] [id number] [address] [place] [address], [place] [address] Jan, [facility] [address] [id number] [address] [place] [address], [place] [address] Jan, [facility] [address] [id number] [address] [place] [address], [place] [address] December, [facility] [address] [id number] [address] [place] [address], [place] [address] December, [facility] [address] [id number] [address] [place] [address], [place] [address] December, [facility] [address] [id number] [address] [place] [address], [place] [address] December, [facility] [address] [id number] [address] [place] [address], [place] [address] Sep, [facility] [address] [id number] [address] [place] [address], [place] [address] Sep, [facility] [address] [id number] [address] [place] [address], [place] [address] Jun, [facility] [address] [id number] [address] [place] [address], [place] [id number] 14 Jun, 2011 [facility] [address] [id number] [address] [place] [address], [place] [address] 18 May, 2011 [facility] [address] [id number] [address] [place] [address], [place] [address] Feb, [facility] [address] [id number] [address] [place] [address], [place] [address] Mar, [facility] [address] [facility] [id number] [address] [place] [phone] Nov, [facility] [address] [facility] [id number] [address] [place] [id number] Sep, [facility] [address] [facility] [id number] [address] [place] [id number] Jun, [facility] [address] [facility] [id number] [address] [place] [id number] Jun, [facility] [address] [facility] [id number] [address] [place] [id number] May, [facility] [address] [facility] [id number] [address] [place] [id number] Mar, [facility] [address] [facility] [id number] [address] [place] [id number] December, IMMUNIZATIONS No Known Immunizations SOCIAL HISTORY Never Assessed REASON FOR VISIT PLAN OF CARE VITAL SIGNS MEDICATIONS Unknown [...]
--- OUTSIDE RECORDS SUMMARY | 2020-02-28 02:31 | XMS REPORT ---
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 Active 592156557 Problem Essential hypertension I10 Active 46679985 Problem Stage 3 chronic kidney disease N18.3 Active 956217025 Problem Memory loss R41.3 Active 94622346 Problem Primary insomnia F51.01 Active 397 2004 Problem Nocturnal hypoxia G47.34 Active 38 9270478 Problem Hyperlipidemia, unspecified hyperlipidemia E78.5 Active 43159527 Problem Gastroesophageal reflux disease without esophagitis K21.9 Active 499324425 Problem Anxiety F41.9 Active 89922455 Problem Other chronic gastritis without hemorrhage K29.50 Active 5755411 ALLERGIES No Information ENCOUNTERS Encounter Location Date Diagnosis [place] [id number] [facility] [id number] [address] [place] [id number] Nov, [facility] [place] [address] [facility] [id number] [address] [place] [address] Oct, [place] [address] [facility] [id number] [address] [place] [address] Oct, [place] [address] [address] [place] [id number] [address] [place] [address] Oct, CN palsy, left eye H49.22 ; Primary insomnia F51.01 ; Pulsatile tinnitus of left ear H93.A2 and Seborrheic keratosis L82.1 [facility] [place] [address] [place] [id number] [address] [place] [address] Aug, CN palsy, left eye H49.22 ; Essential hypertension I10 ; Arthralgia, unspecified joint M25.50 and Primary insomnia F51.01 [facility] [place] [address] [place] [id number] [place] [address] Jul, Cranial nerve palsy G52.9 [facility] [place] [address] [place] [id number] [place] [address] Jul, Cranial nerve palsy G52.9 ; Stage 3 chronic kidney disease N18.3 ; Family history of embolic stroke Z82.3 and Numbness of left hand R20.0 [place] [address] [place] [id number] [place] [address] Jun, Anxiety F41.9 and Essential hypertension I10 [place] [address] [address] Jun, [facility] [place] [address] [place] [id number] [place] [address] Jun, Essential hypertension I10 [place] [address] [address] May, [facility] [place] [address] [place] [id number] [place] [address] May, Herpes zoster without compli cation B02.9 and Stage 3 chronic kidney disease N18.3 [facility] [place] [address] [place] [id number] [address] [place] [address] Mar, Essential hypertension I10 [facility] [place] [address] [place] [id number] [place] [address] Feb, [facility] [place] [address] [place] [id number] [address] [place] [address] Feb, [facility] [place] [address] [address] Feb, Essential hypertension I10 a nd Acute midline low back pain without sciatica M54.5 [facility] [address] [address] December, Insect bite (nonvenomous) of lower back and pelvis, initial encounter S30.860A and Bitten or stung by nonvenomous insect and other nonvenomous arthropods, initial encounter W57.XXXA [facility] [place] [address] [address] Nov, Pleurisy R09.1 [place] [address] [address] Nov, [facility] [place] [address] [address] Oct, Hypoxemia R09.02 and Fatigue , unspecified type R53.83 [place] [address] [address] 12 Sep, 2017 Other chronic gastritis with out hemorrhage K29.50 ; Gastroesophageal reflux disease without esophagitis K21.9 ; Hyperlipidemia, unspecified hyperlipidemia E78.5 and Arthralgia, unspecified joint M25.50 [facility] [place] [address] [address] Aug, Hypertriglyceridemia E78.1 [place] [address] [address] 02 May, 2017 Anxiety F41.9 [place] [address] [address] 21 Apr, 2017 Hyperlipidemia, unspecified hyperlipidemia E78.5 ; Gastroesophageal reflux disease without esophagitis K21.9 ; Forgetfulness R68.89 ; Essential hypertension I10 and Anxiety F41.9 [place] [address] [address] 14 Apr, 2017 Hypertriglyceridemia E78.1 [place] [address] [place] [address] Mar, Medicare annual wellness vis it, subsequent Z00.00 ; Hyperlipidemia, unspecified hyperlipidemia E78.5 and Essential hypertension I10 [place] [address] [address] Mar, Forgetfulness R68.89 ; Fatig ue, unspecified type R53.83 and Essential hypertension I10 [place] [address] [address] Mar, Primary osteoarthritis, 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 and Strain of left trapezius muscle, initial encounter S46.812A [place] [address] Feb, Left wrist pain M25.532 [place] [address] [address] 07 Feb, 2017 Left wrist pain M25.532 [place] [address] [address] December, Hypertriglyceridemia E78.1 ; Encounter for immunization Z23 ; Forgetfulness R68.89 and Fatigue, unspecified type R53.83 [place] [address] [address] Jun, Forgetfulness R68.89 and Rhi nitis, unspecified type J31.0 [place] [address] [address] May, [address] [address] May, Hypoxemia R09.02 ; Memory lo ss R41.3 ; Arthralgia, unspecified joint M25.50 and Rhinitis, unspecified type J31.0 [place] [address] [address] [place] [id number] [address] [place] [address] Mar, Vertigo R42 ; Orthostatic hy potension I95.1 and Chronic gastritis without bleeding, unspecified gastritis type K29.50 [place] [id number] [facility] [id number] [address] [place] [address] Feb, [place] [address] [address] Feb, Forgetfulness R68.89 [place] [address] [place] [id number] [place] [address] Jan, [place] [address] [address] Jan, Gastroesophageal reflux dise ase without esophagitis K21.9 ; Fatigue, unspecified type R53.83 ; Weakness R53.1 ; Forgetfulness R68.89 ; Hyperlipidemia, unspecified hyperlipidemia E78.5 and Hearing abnormally acute, unspecified laterality H93.239 [place] [address] [address] Oct, [place] [address] [address] Aug, Upper respiratory tract infe ction, unspecified type J06.9 [place] [address] [address] Aug, [place] [address] [place] [id number] [place] [address] Jun, Acute idiopathic gout, unspe cified site M10.00 ; Encounter for immunization Z23 ; Hyperlipidemia, unspecified hyperlipidemia E78.5 ; Gastroesophageal reflux disease without esophagitis K21.9 and Fatigue, unspecified type R53.83 [place] [address] [place] [id number] [address] [place] [address] 17 Jan, 2015 Esophageal reflux 530.81 and Irritable bowel syndrome 564.1 [place] [address] [place] [id number] [address] [place] [address] 15 Jan, 2015 [place] [address] [place] [id number] [place] [address] Jan, Gastritis 535.50 ; Hx of col onic polyp V12.72 and Positional vertigo 386.11 [facility] [place] [address] [facility] [id number] [address] [place] [address] Jan, [facility] [place] [address] [facility] [id number] [address] [place] [address] Jan, Dizziness 780.4 and Nausea & vomiting 787.01 [facility] [place] [address] [facility] [id number] [address] [place] [address] Nov, [facility] [place] [address] [id number] [address] [place] [address] Nov, [facility] [place] [address] [facility] [id number] [address] [place] [address] Nov, [facility] [place] [address] [facility] [id number] [address] [place] [address] Nov, [facility] [place] [address] [facility] [id number] [address] [place] [address] Oct, [facility] [place] [address] [facility] [id number] [address] [place] [address] Oct, [facility] [place] [address] [facility] [id number] [address] [place] [address] Oct, [facility] [place] [address] [facility] [id number] [address] [place] [address] Aug, [facility] [place] [address] [facility] [id number] [address] [place] [address] Aug, [facility] [place] [address] [facility] [id number] [address] [place] [address] Aug, [facility] [place] [address] [facility] [id number] [address] [place] [address] Jul, [facility] [place] [address] [facility] [id number] [address] [place] [address] Jul, [facility] [place] [address] [facility] [id number] [address] [place] [address] Jul, [facility] [address] [id number] [address] [place] [address], [place] [address] Jul, [facility] [address] [id number] [address] [place] [address], [place] [address] Jul, [facility] [address] [id number] [address] [place] [address], [place] [address] Jul, [facility] [address] [id number] [address] [place] [address], [place] [address] Jul, [facility] [address] [id number] [address] [place] [address], [place] [address] Jul, [facility] [address] [id number] [address] [place] [address], [place] [address] Jul, [facility] [address] [id number] [address] [place] [address], [place] [address] Jul, [facility] [address] [id number] [address] [place] [address], [place] [address] Jul, [facility] [address] [id number] [address] [place] [address], [place] [address] Jun, [facility] [address] [id number] [address] [place] [address], [place] [address] 14 Jun, 2014 [facility] [address] [id number] [address] [place] [address], [place] [address] Jun, [facility] [address] [id number] [address] [place] [address], [place] [address] 10 Jun, 2014 [facility] [address] [id number] [address] [place] [address], [place] [address] 17 Apr, 2014 [facility] [address] [id number] [address] [place] [address], [place] [address] 17 Apr, 2014 [facility] [address] [id number] [address] [place] [address], [place] [address] 17 Apr, 2014 [facility] [address] [id number] [address] [place] [address], [place] [address] Apr, [facility] [address] [id number] [address] [place] [address], [place] [address] Feb, [facility] [address] [id number] [address] [place] [address], [place] [address] Feb, [facility] [address] [id number] [address] [place] [address], [place] [address] Feb, [facility] [address] [id number] [address] [place] [address], [place] [address] Feb, [facility] [address] [id number] [address] [place] [address], [place] [address] Jan, [facility] [address] [id number] [address] [place] [address], [place] [address] Jan, [facility] [address] [id number] [address] [place] [address], [place] [address] Jan, [facility] [address] [id number] [address] [place] [address], [place] [address] Jan, [facility] [address] [id number] [address] [place] [address], [place] [address] December, [facility] [address] [id number] [address] [place] [address], [place] [address] December, [facility] [address] [id number] [address] [place] [address], [place] [address] December, [facility] [address] [id number] [address] [place] [address], [place] [address] December, [facility] [address] [id number] [address] [place] [address], [place] [address] December, [facility] [address] [id number] [address] [place] [address], [place] [address] December, [facility] [address] [id number] [address] [place] [address], [place] [address] Oct, [facility] [address] [id number] [address] [place] [address], [place] [address] Oct, [facility] [address] [id number] [address] [place] [address], [place] [address] Sep, [facility] [address] [id number] [address] [place] [address], [place] [address] Sep, [facility] [address] [id number] [address] [place] [address], [place] [address] Aug, [facility] [address] [id number] [address] [place] [address], [place] [address] Aug, [facility] [address] [id number] [address] [place] [address], [place] [address] Jul, [facility] [address] [id number] [address] [place] [address], [place] [address] Jul, [facility] [address] [id number] [address] [place] [address], [place] [address] May, [facility] [address] [id number] [address] [place] [address], [place] [address] May, [facility] [address] [id number] [address] [place] [address] May, [facility] [address] [id number] [address] [place] [address], [place] [address] Apr, [facility] [address] [id number] [address] [place] [address] Feb, [facility] [address] [id number] [address] [place] [address], [place] [address] Feb, [facility] [address] [id number] [address] [place] [address], [place] [address] Feb, [facility] [address] [id number] [address] [place] [address], [place] [address] Feb, [facility] [address] [id number] [address] [place] [address] Jan, [facility] [address] [id number] [address] [place] [address], [place] [address] Jan, [facility] [address] [id number] [address] [place] [address], [place] [address] December, [facility] [address] [id number] [address] [place] [address], [place] [address] Nov, [facility] [address] [id number] [address] [place] [address], [place] [address] Nov, [facility] [address] [id number] [address] [place] [address], [place] [address] Oct, [facility] [address] [id number] [address] [place] [address], [place] [address] Oct, [facility] [address] [id number] [address] [place] [address], [place] [address] Oct, [facility] [address] [id number] [address] [place] [address], [place] [address] Aug, [facility] [address] [id number] [address] [place] [address], [place] [address] Aug, [facility] [address] [id number] [address] [place] [address], [place] [address] Jul, [facility] [address] [id number] [address] [place] [address], [place] [address] Jul, [facility] [address] [id number] [address] [place] [address], [place] [address] Jul, [facility] [address] [id number] [address] [place] [address], [place] [address] Jul, [facility] [address] [id number] [address] [place] [address], [place] [address] Jun, [facility] [address] [id number] [address] [place] [address], [place] [address] Jun, [facility] [address] [id number] [address] [place] [address], [place] [address] May, [facility] [address] [id number] [address] [place] [address], [place] [address] Mar, [facility] [address] [id number] [address] [place] [address], [place] [address] Mar, [facility] [address] [id number] [address] [place] [address], [place] [address] Jan, [facility] [address] [id number] [address] [place] [address], [place] [address] Jan, [facility] [address] [id number] [address] [place] [address], [place] [address] December, [facility] [address] [id number] [address] [place] [address], [place] [address] December, [facility] [address] [id number] [address] [place] [address], [place] [address] December, [facility] [address] [id number] [address] [place] [address], [place] [address] December, [facility] [address] [id number] [address] [place] [address], [place] [address] Sep, [facility] [address] [id number] [address] [place] [address], [place] [address] Sep, [facility] [address] [id number] [address] [place] [address], [place] [address] Jun, [facility] [address] [id number] [address] [place] [address], [place] [address] 14 Jun, 2011 [facility] [address] [id number] [address] [place] [address], [place] [address] 18 May, 2011 [facility] [address] [id number] [address] [place] [address], [place] [address] Feb, [facility] [address] [id number] [address] [place] [address], [place] [address] 10 Mar, 2010 [facility] [place] [address] [id number] [address] [place] [address] Nov, [facility] [place] [address] [id number] [address] [place] [id number] Sep, [facility], [place], [facility] [address] [id number] [address] [place] [id number] Jun, [facility], [place], [facility] [address] [id number] [address] [place] [id number] Jun, [facility], [place], [facility] [address] [id number] [address] [place] [phone] May, [facility], [place], [facility] [address] [facility] [id number] [address] [place] [id number] Mar, [facility], [place], [facility] [address] [facility] [id number] [address] [place] [id number] December, IMMUNIZATIONS No Known Immunizations SOCIAL HISTORY Never Assessed REASON FOR VISIT PLAN OF CARE VITAL SIGNS Height 64 in 2013-05-26 Weight 153.46 lbs 2013-05-26 Temperature 97.1 degrees Fahrenheit 2013-05-26 Heart Rate 78 bpm 2013-05-26 Respiratory Rate 16 2013-05-26 Blood pressure systolic 122 mmHg 2013-05-26 Blood pressure diastolic 80 mmHg 2013-05-26 MEDICATIONS Unknown Medications RESULTS No Results PROCEDURES [...]
--- OUTSIDE RECORDS SUMMARY | 2020-02-28 02:31 | XMS REPORT ---
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 Active 869267292 Problem Essential hypertension I10 Active 93090440 Problem Stage 3 chronic kidney disease N18.3 Active 731354801 Problem Memory loss R41.3 Active 87905383 Problem Primary insomnia F51.01 Active 397 2004 Problem Nocturnal hypoxia G47.34 Active 38 9577307 Problem Hyperlipidemia, unspecified hyperlipidemia E78.5 Active 04131683 Problem Gastroesophageal reflux disease without esophagitis K21.9 Active 764578025 Problem Anxiety F41.9 Active 87050518 Problem Other chronic gastritis without hemorrhage K29.50 Active 0770764 ALLERGIES No Information ENCOUNTERS Encounter Location Date Diagnosis [place] [id number] [facility] [id number] [address] [place] [address] Nov, [facility] [address] [facility] [id number] [address] [place] [address] Oct, [place] [address] [facility] [id number] [address] [place] [address] Oct, [place] [address] [place] [id number] [address] [place] [address] Oct, CN palsy, left eye H49.22 ; Primary insomnia F51.01 ; Pulsatile tinnitus of left ear H93.A2 and Seborrheic keratosis L82.1 [facility] [address] [place] [id number] [address] [place] [address] Aug, CN palsy, left eye H49.22 ; Essential hypertension I10 ; Arthralgia, unspecified joint M25.50 and Primary insomnia F51.01 [facility] [address] [place] [id number] [place] [address] Jul, Cranial nerve palsy G52.9 [facility] [address] [place] [id number] [place] [address] Jul, Cranial nerve palsy G52.9 ; Stage 3 chronic kidney disease N18.3 ; Family history of embolic stroke Z82.3 and Numbness of left hand R20.0 [place] [address] [place] [id number] [place] [address] Jun, Anxiety F41.9 and Essential hypertension I10 [place] [address] [address] Jun, [facility] [address] [place] [id number] [place] [address] Jun, Essential hypertension I10 [place] [address] [address] May, [facility] [address] [place] [id number] [place] [address] May, Herpes zoster without compli cation B02.9 and Stage 3 chronic kidney disease N18.3 [facility] [address] [place] [id number] [address] [place] [address] Mar, Essential hypertension I10 [facility] [address] [place] [id number] [place] [address] Feb, [facility] [address] [place] [id number] [address] [place] [address] Feb, [facility] [address] [address] Feb, Essential hypertension I10 a nd Acute midline low back pain without sciatica M54.5 [facility] [address] [address] December, Insect bite (nonvenomous) of lower back and pelvis, initial encounter S30.860A and Bitten or stung by nonvenomous insect and other nonvenomous arthropods, initial encounter W57.XXXA [facility] [address] [address] Nov, Pleurisy R09.1 [place] [address] [address] Nov, [facility] [address] [address] Oct, Hypoxemia R09.02 and Fatigue , unspecified type R53.83 [place] [address] [id number] 12 Sep, 2017 Other chronic gastritis with out hemorrhage K29.50 ; Gastroesophageal reflux disease without esophagitis K21.9 ; Hyperlipidemia, unspecified hyperlipidemia E78.5 and Arthralgia, unspecified joint M25.50 [facility] [address] [address] Aug, Hypertriglyceridemia E78.1 [place] [address] [address] 02 May, 2017 Anxiety F41.9 [place] [address] [address] 21 Apr, 2017 Hyperlipidemia, unspecified hyperlipidemia E78.5 ; Gastroesophageal reflux disease without esophagitis K21.9 ; Forgetfulness R68.89 ; Essential hypertension I10 and Anxiety F41.9 [place] [address] [address] 14 Apr, 2017 Hypertriglyceridemia E78.1 [place] [address] [place] [address] Mar, Medicare annual wellness vis it, subsequent Z00.00 ; Hyperlipidemia, unspecified hyperlipidemia E78.5 and Essential hypertension I10 [place] [address] [address] Mar, Forgetfulness R68.89 ; Fatig ue, unspecified type R53.83 and Essential hypertension I10 [place] [address] [address] Mar, Primary osteoarthritis, 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 and Strain of left trapezius muscle, initial encounter S46.812A [place] [address] Feb, Left wrist pain M25.532 [place] [address] [address] 07 Feb, 2017 Left wrist pain M25.532 [place] [address] [address] December, Hypertriglyceridemia E78.1 ; Encounter for immunization Z23 ; Forgetfulness R68.89 and Fatigue, unspecified type R53.83 [place] [address] [address] Jun, Forgetfulness R68.89 and Rhi nitis, unspecified type J31.0 [place] [address] [address] May, [address] [address] May, Hypoxemia R09.02 ; Memory lo ss R41.3 ; Arthralgia, unspecified joint M25.50 and Rhinitis, unspecified type J31.0 [place] [address] [place] [id number] [place] [address] Mar, Vertigo R42 ; Orthostatic hy potension I95.1 and Chronic gastritis without bleeding, unspecified gastritis type K29.50 [place] [address] [facility] [id number] [address] [place] [address] Feb, [place] [address] [address] Feb, Forgetfulness R68.89 [place] [address] [place] [id number] [place] [address] Jan, [place] [address] [address] Jan, Gastroesophageal reflux dise ase without esophagitis K21.9 ; Fatigue, unspecified type R53.83 ; Weakness R53.1 ; Forgetfulness R68.89 ; Hyperlipidemia, unspecified hyperlipidemia E78.5 and Hearing abnormally acute, unspecified laterality H93.239 [place] [address] [address] Oct, [place] [address] [address] Aug, Upper respiratory tract infe ction, unspecified type J06.9 [place] [address] [address] Aug, [place] [address] [place] [id number] [place] [address] Jun, Acute idiopathic gout, unspe cified site M10.00 ; Encounter for immunization Z23 ; Hyperlipidemia, unspecified hyperlipidemia E78.5 ; Gastroesophageal reflux disease without esophagitis K21.9 and Fatigue, unspecified type R53.83 [place] [address] [place] [id number] [address] [place] [address] 17 Jan, 2015 Esophageal reflux 530.81 and Irritable bowel syndrome 564.1 [place] [address] [place] [id number] [address] [place] [address] 15 Jan, 2015 [place] [address] [place] [id number] [place] [address] Jan, Gastritis 535.50 ; Hx of col onic polyp V12.72 and Positional vertigo 386.11 [facility] [address] [facility] [id number] [address] [place] [address] Jan, [facility] [address] [facility] [id number] [address] [place] [address] Jan, Dizziness 780.4 and Nausea & vomiting 787.01 [facility] [address] [facility] [id number] [address] [place] [address] Nov, [facility] [address] [id number] [address] [place] [address] Nov, [facility] [address] [facility] [id number] [address] [place] [address] Nov, [facility] [address] [facility] [id number] [address] [place] [address] Nov, [facility] [address] [facility] [id number] [address] [place] [address] Oct, [facility] [address] [facility] [id number] [address] [place] [address] Oct, [facility] [address] [facility] [id number] [address] [place] [address] Oct, [facility] [address] [facility] [id number] [address] [place] [address] Aug, [facility] [address] [facility] [id number] [address] [place] [address] Aug, [facility] [address] [facility] [id number] [address] [place] [address] Aug, [facility] [address] [facility] [id number] [address] [place] [address] Jul, [facility] [address] [facility] [id number] [address] [place] [address] Jul, [facility] [address] [facility] [id number] [address] [place] [address] Jul, [facility] [address] [id number] [address] [place] [address], [place] [address] Jul, [facility] [address] [id number] [address] [place] [address], [place] [address] Jul, [facility] [address] [id number] [address] [place] [address], [place] [address] Jul, [facility] [address] [id number] [address] [place] [address], [place] [address] Jul, [facility] [address] [id number] [address] [place] [address], [place] [address] Jul, [facility] [address] [id number] [address] [place] [address], [place] [address] Jul, [facility] [address] [id number] [address] [place] [address], [place] [address] Jul, [facility] [address] [id number] [address] [place] [address], [place] [address] Jul, [facility] [address] [id number] [address] [place] [address], [place] [address] Jun, [facility] [address] [id number] [address] [place] [address], [place] [address] 14 Jun, 2014 [facility] [address] [id number] [address] [place] [address], [place] [address] Jun, [facility] [address] [id number] [address] [place] [address], [place] [address] 10 Jun, 2014 [facility] [address] [id number] [address] [place] [address], [place] [address] 17 Apr, 2014 [facility] [address] [id number] [address] [place] [address], [place] [address] 17 Apr, 2014 [facility] [address] [id number] [address] [place] [address], [place] [address] 17 Apr, 2014 [facility] [address] [id number] [address] [place] [address], [place] [address] Apr, [facility] [address] [id number] [address] [place] [address], [place] [address] Feb, [facility] [address] [id number] [address] [place] [address], [place] [address] Feb, [facility] [address] [id number] [address] [place] [address], [place] [address] Feb, [facility] [address] [id number] [address] [place] [address], [place] [address] Feb, [facility] [address] [id number] [address] [place] [address], [place] [address] Jan, [facility] [address] [id number] [address] [place] [address], [place] [address] Jan, [facility] [address] [id number] [address] [place] [address], [place] [address] Jan, [facility] [address] [id number] [address] [place] [address], [place] [address] Jan, [facility] [address] [id number] [address] [place] [address], [place] [address] December, [facility] [address] [id number] [address] [place] [address], [place] [address] December, [facility] [address] [id number] [address] [place] [address], [place] [address] December, [facility] [address] [id number] [address] [place] [address], [place] [address] December, [facility] [address] [id number] [address] [place] [address], [place] [address] December, [facility] [address] [id number] [address] [place] [address], [place] [address] December, [facility] [address] [id number] [address] [place] [address], [place] [address] Oct, [facility] [address] [id number] [address] [place] [address], [place] [address] Oct, [facility] [address] [id number] [address] [place] [address], [place] [address] Sep, [facility] [address] [id number] [address] [place] [address], [place] [address] Sep, [facility] [address] [id number] [address] [place] [address], [place] [address] Aug, [facility] [address] [id number] [address] [place] [address], [place] [address] Aug, [facility] [address] [id number] [address] [place] [address], [place] [address] Jul, [facility] [address] [id number] [address] [place] [address], [place] [address] Jul, [facility] [address] [id number] [address] [place] [address], [place] [address] May, [facility] [address] [id number] [address] [place] [address], [place] [address] May, [facility] [address] [id number] [address] [place] [address] May, [facility] [address] [id number] [address] [place] [address], [place] [address] Apr, [facility] [address] [id number] [address] [place] [address] Feb, [facility] [address] [id number] [address] [place] [address], [place] [address] Feb, [facility] [address] [id number] [address] [place] [address], [place] [address] Feb, [facility] [address] [id number] [address] [place] [address], [place] [address] Feb, [facility] [address] [id number] [address] [place] [address] Jan, [facility] [address] [id number] [address] [place] [address], [place] [address] Jan, [facility] [address] [id number] [address] [place] [address], [place] [address] December, [facility] [address] [id number] [address] [place] [address], [place] [address] Nov, [facility] [address] [id number] [address] [place] [address], [place] [address] Nov, [facility] [address] [id number] [address] [place] [address], [place] [address] Oct, [facility] [address] [id number] [address] [place] [address], [place] [address] Oct, [facility] [address] [id number] [address] [place] [address], [place] [address] Oct, [facility] [address] [id number] [address] [place] [address], [place] [address] Aug, [facility] [address] [id number] [address] [place] [address], [place] [address] Aug, [facility] [address] [id number] [address] [place] [address], [place] [address] Jul, [facility] [address] [id number] [address] [place] [address], [place] [address] Jul, [facility] [address] [id number] [address] [place] [address], [place] [address] Jul, [facility] [address] [id number] [address] [place] [address], [place] [address] Jul, [facility] [address] [id number] [address] [place] [address], [place] [address] Jun, [facility] [address] [id number] [address] [place] [address], [place] [address] Jun, [facility] [address] [id number] [address] [place] [address], [place] [address] May, [facility] [address] [id number] [address] [place] [address], [place] [address] Mar, [facility] [address] [id number] [address] [place] [address], [place] [address] Mar, [facility] [address] [id number] [address] [place] [address], [place] [address] Jan, [facility] [address] [id number] [address] [place] [address], [place] [address] Jan, [facility] [address] [id number] [address] [place] [address], [place] [address] December, [facility] [address] [id number] [address] [place] [address], [place] [address] December, [facility] [address] [id number] [address] [place] [address], [place] [address] December, [facility] [address] [id number] [address] [place] [address], [place] [address] December, [facility] [address] [id number] [address] [place] [address], [place] [address] Sep, [facility] [address] [id number] [address] [place] [address], [place] [address] Sep, [facility] [address] [id number] [address] [place] [address], [place] [address] Jun, [facility] [address] [id number] [address] [place] [address], [place] [address] 14 Jun, 2011 [facility] [address] [id number] [address] [place] [address], [place] [address] 18 May, 2011 [facility] [address] [id number] [address] [place] [address], [place] [address] Feb, [facility] [address] [id number] [address] [place] [address], [place] [address] Mar, [facility] [address] [facility] [id number] [address] [place] [address] Nov, [facility] [address] [facility] [id number] [address] [place] [address] Sep, [facility] [address] [facility] [id number] [address] [place] [address] Jun, [facility] [address] [facility] [id number] [address] [place] [address] Jun, [facility] [address] [facility] [id number] [address] [place] [address] May, [facility] [address] [facility] [id number] [address] [place] [address] Mar, [facility] [address] [facility] [id number] [address] [place] [address] December, IMMUNIZATIONS No Known Immunizations SOCIAL HISTORY [...]
--- OUTSIDE RECORDS SUMMARY | 2020-02-28 02:31 | XMS REPORT ---
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 Active 716145468 Problem Essential hypertension I10 Active 82248214 Problem Stage 3 chronic kidney disease N18.3 Active 104148152 Problem Memory loss R41.3 Active 10550532 Problem Primary insomnia F51.01 Active 397 2004 Problem Nocturnal hypoxia G47.34 Active 38 4961811 Problem Hyperlipidemia, unspecified hyperlipidemia E78.5 Active 74920757 Problem Gastroesophageal reflux disease without esophagitis K21.9 Active 977461538 Problem Anxiety F41.9 Active 78422944 Problem Other chronic gastritis without hemorrhage K29.50 Active 7714827 ALLERGIES No Information ENCOUNTERS Encounter Location Date Diagnosis [place] [id number] [facility] [id number] [address] [place] [phone] Nov, [facility] [address] [facility] [id number] [address] [place] [phone] Oct, [place] [address] [facility] [id number] [address] [place] [phone] Oct, [place] [address] [place] [id number] [address] [place] [phone] Oct, CN palsy, left eye H49.22 ; Primary insomnia F51.01 ; Pulsatile tinnitus of left ear H93.A2 and Seborrheic keratosis L82.1 [facility] [address] [place] [id number] [address] [place] [address] Aug, CN palsy, left eye H49.22 ; Essential hypertension I10 ; Arthralgia, unspecified joint M25.50 and Primary insomnia F51.01 [facility] [address] [place] [id number] [place] [address] Jul, Cranial nerve palsy G52.9 [facility] [address] [place] [id number] [place] [phone] Jul, Cranial nerve palsy G52.9 ; Stage 3 chronic kidney disease N18.3 ; Family history of embolic stroke Z82.3 and Numbness of left hand R20.0 [place] [address] [place] [id number] [place] [address] Jun, Anxiety F41.9 and Essential hypertension I10 [place] [address] [phone] Jun, [facility] [address] [place] [id number] [place] [address] Jun, Essential hypertension I10 [place] [address] [address] May, [facility] [address] [place] [id number] [place] [address] May, Herpes zoster without compli cation B02.9 and Stage 3 chronic kidney disease N18.3 [facility] [address] [place] [id number] [address] [place] [phone] Mar, Essential hypertension I10 [facility] [address] [place] [id number] [place] [phone] Feb, [facility] [address] [place] [id number] [address] [place] [phone] Feb, [facility] [address] [address] Feb, Essential hypertension I10 a nd Acute midline low back pain without sciatica M54.5 [facility] [address] [address] December, Insect bite (nonvenomous) of lower back and pelvis, initial encounter S30.860A and Bitten or stung by nonvenomous insect and other nonvenomous arthropods, initial encounter W57.XXXA [facility] [address] [address] Nov, Pleurisy R09.1 [place] [address] [address] Nov, [facility] [address] [address] Oct, Hypoxemia R09.02 and Fatigue , unspecified type R53.83 [place] [address] [address] 12 Sep, 2017 Other chronic gastritis with out hemorrhage K29.50 ; Gastroesophageal reflux disease without esophagitis K21.9 ; Hyperlipidemia, unspecified hyperlipidemia E78.5 and Arthralgia, unspecified joint M25.50 [facility] [address] [address] Aug, Hypertriglyceridemia E78.1 [place] [address] [address] 02 May, 2017 Anxiety F41.9 [place] [address] [address] 21 Apr, 2017 Hyperlipidemia, unspecified hyperlipidemia E78.5 ; Gastroesophageal reflux disease without esophagitis K21.9 ; Forgetfulness R68.89 ; Essential hypertension I10 and Anxiety F41.9 [place] [address] [address] 14 Apr, 2017 Hypertriglyceridemia E78.1 [place] [address] [place] [address] Mar, Medicare annual wellness vis it, subsequent Z00.00 ; Hyperlipidemia, unspecified hyperlipidemia E78.5 and Essential hypertension I10 [place] [address] [address] Mar, Forgetfulness R68.89 ; Fatig ue, unspecified type R53.83 and Essential hypertension I10 [place] [address] [address] Mar, Primary osteoarthritis, 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 and Strain of left trapezius muscle, initial encounter S46.812A [place] 9[address]992[address] Feb, Left wrist pain M25.532 [place] [address] [address] 07 Feb, 2017 Left wrist pain M25.532 [place] [address] [address] December, Hypertriglyceridemia E78.1 ; Encounter for immunization Z23 ; Forgetfulness R68.89 and Fatigue, unspecified type R53.83 [place] [address] [address] Jun, Forgetfulness R68.89 and Rhi nitis, unspecified type J31.0 [place] [address] [address] May, [address] [address] May, Hypoxemia R09.02 ; Memory lo ss R41.3 ; Arthralgia, unspecified joint M25.50 and Rhinitis, unspecified type J31.0 [place] [address] [place] [id number] [address] [place] [address] Mar, Vertigo R42 ; Orthostatic hy potension I95.1 and Chronic gastritis without bleeding, unspecified gastritis type K29.50 [place] [address] [facility] [id number] [address] [place] [address] Feb, [place] [address] [address] Feb, Forgetfulness R68.89 [place] [address] [place] [id number] [place] [address] Jan, [place] [address] [address] Jan, Gastroesophageal reflux dise ase without esophagitis K21.9 ; Fatigue, unspecified type R53.83 ; Weakness R53.1 ; Forgetfulness R68.89 ; Hyperlipidemia, unspecified hyperlipidemia E78.5 and Hearing abnormally acute, unspecified laterality H93.239 [place] [address] [address] Oct, [place] [address] [address] Aug, Upper respiratory tract infe ction, unspecified type J06.9 [place] [address] [address] Aug, [place] [address] [place] [id number] [place] [address] Jun, Acute idiopathic gout, unspe cified site M10.00 ; Encounter for immunization Z23 ; Hyperlipidemia, unspecified hyperlipidemia E78.5 ; Gastroesophageal reflux disease without esophagitis K21.9 and Fatigue, unspecified type R53.83 [place] [address] [place] [id number] [address] [place] [address] 17 Jan, 2015 Esophageal reflux 530.81 and Irritable bowel syndrome 564.1 [place] [address] [place] [id number] [address] [place] [address] 15 Jan, 2015 [place] [address] [place] [id number] [place] [address] Jan, Gastritis 535.50 ; Hx of col onic polyp V12.72 and Positional vertigo 386.11 [facility] [address] [facility] [id number] [address] [place] [address] Jan, [facility] [address] [facility] [id number] [address] [place] [address] Jan, Dizziness 780.4 and Nausea & vomiting 787.01 [facility] [address] [facility] [id number] [address] [place] [address] Nov, [facility] [address] [id number] [address] [place] [phone] Nov, [facility] [address] [facility] [id number] [address] [place] [phone] Nov, [facility] [address] [facility] [id number] [address] [place] [phone] Nov, [facility] [address] [facility] [id number] [address] [place] [address] Oct, [facility] [address] [facility] [id number] [address] [place] [phone] Oct, [facility] [address] [facility] [id number] [address] [place] [phone] Oct, [facility] [address] [facility] [id number] [address] [place] [phone] Aug, [facility] [address] [facility] [id number] [address] [place] [phone] Aug, [facility] [address] [facility] [id number] [address] [place] [phone] Aug, [facility] [address] [facility] [id number] [address] [place] [phone] Jul, [facility] [address] [facility] [id number] [address] [place] [phone] Jul, [facility] [address] [facility] [id number] [address] [place] [address] Jul, [facility] [address] [id number] [address] [place] [address], [place] [address] Jul, [facility] [address] [id number] [address] [place] [address], [place] [address] Jul, [facility] [address] [id number] [address] [place] [address], [place] [address] Jul, [facility] [address] [id number] [address] [place] [address], [place] [address] Jul, [facility] [address] [id number] [address] [place] [address], [place] [address] Jul, [facility] [address] [id number] [address] [place] [address], [place] [address] Jul, [facility] [address] [id number] [address] [place] [address], [place] [address] Jul, [facility] [address] [id number] [address] [place] [address], [place] [address] Jul, [facility] [address] [id number] [address] [place] [address], [place] [address] Jun, [facility] [address] [id number] [address] [place] [address], [place] [address] 14 Jun, 2014 [facility] [address] [id number] [address] [place] [address], [place] [address] Jun, [facility] [address] [id number] [address] [place] [address], [place] [address] 10 Jun, 2014 [facility] [address] [id number] [address] [place] [address], [place] [address] 17 Apr, 2014 [facility] [address] [id number] [address] [place] [address], [place] [address] 17 Apr, 2014 [facility] [address] [id number] [address] [place] [address], [place] [address] 17 Apr, 2014 [facility] [address] [id number] [address] [place] [address], [place] [address] Apr, [facility] [address] [id number] [address] [place] [address], [place] [address] Feb, [facility] [address] [id number] [address] [place] [address], [place] [address] Feb, [facility] [address] [id number] [address] [place] [address], [place] [address] Feb, [facility] [address] [id number] [address] [place] [address], [place] [address] Feb, [facility] [address] [id number] [address] [place] [address], [place] [address] Jan, [facility] [address] [id number] [address] [place] [address], [place] [address] Jan, [facility] [address] [id number] [address] [place] [address], [place] [address] Jan, [facility] [address] [id number] [address] [place] [address], [place] [address] Jan, [facility] [address] [id number] [address] [place] [address], [place] [address] December, [facility] [address] [id number] [address] [place] [address], [place] [address] December, [facility] [address] [id number] [address] [place] [address], [place] [address] December, [facility] [address] [id number] [address] [place] [address], [place] [address] December, [facility] [address] [id number] [address] [place] [address], [place] [address] December, [facility] [address] [id number] [address] [place] [address], [place] [address] December, [facility] [address] [id number] [address] [place] [address], [place] [address] Oct, [facility] [address] [id number] [address] [place] [address], [place] [address] Oct, [facility] [address] [id number] [address] [place] [address], [place] [address] Sep, [facility] [address] [id number] [address] [place] [address], [place] [address] Sep, [facility] [address] [id number] [address] [place] [address], [place] [address] Aug, [facility] [address] [id number] [address] [place] [address], [place] [address] Aug, [facility] [address] [id number] [address] [place] [address], [place] [address] Jul, [facility] [address] [id number] [address] [place] [address], [place] [address] Jul, [facility] [address] [id number] [address] [place] [address], [place] [address] May, [facility] [address] [id number] [address] [place] [address], [place] [address] May, [facility] [address] [id number] [address] [place] [phone] May, [facility] [address] [id number] [address] [place] [address], [place] [address] Apr, [facility] [address] [id number] [address] [place] [phone] Feb, [facility] [address] [id number] [address] [place] [address], [place] [address] Feb, [facility] [address] [id number] [address] [place] [address], [place] [address] Feb, [facility] [address] [id number] [address] [place] [address], [place] [address] Feb, [facility] [address] [id number] [address] [place] [phone] Jan, [facility] [address] [id number] [address] [place] [address], [place] [address] Jan, [facility] [address] [id number] [address] [place] [address], [place] [address] December, [facility] [address] [id number] [address] [place] [address], [place] [address] Nov, [facility] [address] [id number] [address] [place] [address], [place] [address] Nov, [facility] [address] [id number] [address] [place] [address], [place] [address] Oct, [facility] [address] [id number] [address] [place] [address], [place] [address] Oct, [facility] [address] [id number] [address] [place] [address], [place] [address] Oct, [facility] [address] [id number] [address] [place] [address], [place] [address] Aug, [facility] [address] [id number] [address] [place] [address], [place] [address] Aug, [facility] [address] [id number] [address] [place] [address], [place] [address] Jul, [facility] [address] [id number] [address] [place] [address], [place] [address] Jul, [facility] [address] [id number] [address] [place] [address], [place] [address] Jul, [facility] [address] [id number] [address] [place] [address], [place] [address] Jul, [facility] [address] [id number] [address] [place] [address], [place] [address] Jun, [facility] [address] [id number] [address] [place] [address], [place] [address] Jun, [facility] [address] [id number] [address] [place] [address], [place] [address] May, [facility] [address] [id number] [address] [place] [address], [place] [address] Mar, [facility] [address] [id number] [address] [place] [address], [place] [address] Mar, [facility] [address] [id number] [address] [place] [address], [place] [address] Jan, [facility] [address] [id number] [address] [place] [address], [place] [address] Jan, [facility] [address] [id number] [address] [place] [address], [place] [address] December, [facility] [address] [id number] [address] [place] [address], [place] [address] December, [facility] [address] [id number] [address] [place] [address], [place] [address] December, [facility] [address] [id number] [address] [place] [address], [place] [address] December, [facility] [address] [id number] [address] [place] [address], [place] [address] Sep, [facility] [address] [id number] [address] [place] [address], [place] [address] Sep, [facility] [address] [id number] [address] [place] [address], [place] [address] Jun, [facility] [address] [id number] [address] [place] [address], [place] [address] 14 Jun, 2011 [facility] [address] [id number] [address] [place] [address], [place] [address] 18 May, 2011 [facility] [address] [id number] [address] [place] [address], [place] [address] Feb, [facility] [address] [id number] [address] [place] [address], [place] [address] Mar, [facility] [address] [facility] [id number] [address] [place] [phone] Nov, [facility] [address] [facility] [id number] [address] [place] [phone] Sep, [facility] [address] [facility] [id number] [address] [place] [phone] Jun, [facility] [address] [facility] [id number] [address] [place] [phone] Jun, [facility] [address] [facility] [id number] [address] [place] [phone] May, [facility] [address] [facility] [id number] [address] [place] [phone] Mar, [facility] [address] [facility] [id number] [address] [place] [phone] December, IMMUNIZATIONS No Known Immunizations SOCIAL HISTORY [...]
--- OUTSIDE RECORDS SUMMARY | 2020-02-28 02:31 | XMS REPORT ---
Author Author Lisy PIERRE Organization [facility] Address [address] [place] [address] Care Team Providers Care Straight Line Edger Name Role Phone ROSEANN PIERRE Unavailable PROBLEMS Type Condition ICD9-CM Code GIP08-UD Code Onset Dates Condition S tatus SNOMED Code Problem Hypertriglyceridemia E78.1 Active 000789146 Problem Gastroesophageal reflux disease with esophagitis K 21.0 Active 637522516 Problem Colon polyp K63.5 Active 16885134 Problem Rhinitis, unspecified type J31.0 Act michael 03015618 Problem Primary osteoarthritis, 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 Active 546685977 Problem Essential hypertension I10 Active 20041638 Problem Stage 3 chronic kidney disease N18.3 Active 217670838 Problem Memory loss R41.3 Active 94008887 Problem Primary insomnia F51.01 Active 397 2004 Problem Nocturnal hypoxia G47.34 Active 38 8338975 Problem Hyperlipidemia, unspecified hyperlipidemia E78.5 Active 63962376 Problem Gastroesophageal reflux disease without esophagitis K21.9 Active 988871443 Problem Anxiety F41.9 Active 80849451 Problem Other chronic gastritis without hemorrhage K29.50 Active 8485980 ALLERGIES No Information ENCOUNTERS Encounter Location Date Diagnosis [place] [id number] [facility] [id number] [address] [place] [address] Nov, [facility] [address] [facility] [id number] [address] [place] [address] Oct, [place] [address] [facility] [id number] [address] [place] [address] Oct, [place] [address] [place] [id number] [address] [place] [address] Oct, CN palsy, left eye H49.22 ; Primary insomnia F51.01 ; Pulsatile tinnitus of left ear H93.A2 and Seborrheic keratosis L82.1 [facility] [address] [place] [id number] [address] [place] [address] Aug, CN palsy, left eye H49.22 ; Essential hypertension I10 ; Arthralgia, unspecified joint M25.50 and Primary insomnia F51.01 [facility] [address] [place] [id number] [place] [address] Jul, Cranial nerve palsy G52.9 [facility] [address] [place] [id number] [place] [address] Jul, Cranial nerve palsy G52.9 ; Stage 3 chronic kidney disease N18.3 ; Family history of embolic stroke Z82.3 and Numbness of left hand R20.0 [place] [address] [place] [id number] [place] [address] Jun, Anxiety F41.9 and Essential hypertension I10 [place] [address] [address] Jun, [facility] [address] [place] [id number] [place] [address] Jun, Essential hypertension I10 [place] [address] [address] May, [facility] [address] [place] [id number] [place] [address] May, Herpes zoster without compli cation B02.9 and Stage 3 chronic kidney disease N18.3 [facility] [address] [place] [id number] [address] [place] [address] Mar, Essential hypertension I10 [facility] [address] [place] [id number] [place] [address] Feb, [facility] [address] [place] [id number] [address] [place] [address] Feb, [facility] [address] [address] Feb, Essential hypertension I10 a nd Acute midline low back pain without sciatica M54.5 [facility] [address] [address] December, Insect bite (nonvenomous) of lower back and pelvis, initial encounter S30.860A and Bitten or stung by nonvenomous insect and other nonvenomous arthropods, initial encounter W57.XXXA [facility] [address] [address] Nov, Pleurisy R09.1 [place] [address] [address] Nov, [facility] [address] [address] Oct, Hypoxemia R09.02 and Fatigue , unspecified type R53.83 [place] [address] [address] 12 Sep, 2017 Other chronic gastritis with out hemorrhage K29.50 ; Gastroesophageal reflux disease without esophagitis K21.9 ; Hyperlipidemia, unspecified hyperlipidemia E78.5 and Arthralgia, unspecified joint M25.50 [facility] [address] [address] Aug, Hypertriglyceridemia E78.1 [place] [address] [address] 02 May, 2017 Anxiety F41.9 [place] [address] [address] 21 Apr, 2017 Hyperlipidemia, unspecified hyperlipidemia E78.5 ; Gastroesophageal reflux disease without esophagitis K21.9 ; Forgetfulness R68.89 ; Essential hypertension I10 and Anxiety F41.9 [place] [address] [address] 14 Apr, 2017 Hypertriglyceridemia E78.1 [place] [address] [place] [address] Mar, Medicare annual wellness vis it, subsequent Z00.00 ; Hyperlipidemia, unspecified hyperlipidemia E78.5 and Essential hypertension I10 [place] [address] [address] Mar, Forgetfulness R68.89 ; Fatig ue, unspecified type R53.83 and Essential hypertension I10 [place] [address] [address] Mar, Primary osteoarthritis, 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 and Strain of left trapezius muscle, initial encounter S46.812A [place] 6[address] Feb, Left wrist pain M25.532 [place] [address] [address] 07 Feb, 2017 Left wrist pain M25.532 [place] [address] [address] December, Hypertriglyceridemia E78.1 ; Encounter for immunization Z23 ; Forgetfulness R68.89 and Fatigue, unspecified type R53.83 [place] [address] [address] Jun, Forgetfulness R68.89 and Rhi nitis, unspecified type J31.0 [place] [address] [address] May, [address] [address] May, Hypoxemia R09.02 ; Memory lo ss R41.3 ; Arthralgia, unspecified joint M25.50 and Rhinitis, unspecified type J31.0 [place] [address] [place] [id number] [place] [address] Mar, Vertigo R42 ; Orthostatic hy potension I95.1 and Chronic gastritis without bleeding, unspecified gastritis type K29.50 [place] [address] [facility] [id number] [address] [place] [address] Feb, [place] [address] [address] Feb, Forgetfulness R68.89 [place] [address] [place] [id number] [place] [address] Jan, [place] [address] [address] Jan, Gastroesophageal reflux dise ase without esophagitis K21.9 ; Fatigue, unspecified type R53.83 ; Weakness R53.1 ; Forgetfulness R68.89 ; Hyperlipidemia, unspecified hyperlipidemia E78.5 and Hearing abnormally acute, unspecified laterality H93.239 [place] [address] [address] Oct, [place] [address] [address] Aug, Upper respiratory tract infe ction, unspecified type J06.9 [place] [address] [address] Aug, [place] [address] [place] [id number] [place] [address] Jun, Acute idiopathic gout, unspe cified site M10.00 ; Encounter for immunization Z23 ; Hyperlipidemia, unspecified hyperlipidemia E78.5 ; Gastroesophageal reflux disease without esophagitis K21.9 and Fatigue, unspecified type R53.83 [place] [address] [place] [id number] [address] [place] [address] 17 Jan, 2015 Esophageal reflux 530.81 and Irritable bowel syndrome 564.1 [place] [address] [place] [id number] [address] [place] [address] 15 Jan, 2015 [place] [address] [place] [id number] [place] [address] Jan, Gastritis 535.50 ; Hx of col onic polyp V12.72 and Positional vertigo 386.11 [facility] [address] [facility] [id number] [address] [place] [address] Jan, [facility] [address] [facility] [id number] [address] [place] [address] Jan, Dizziness 780.4 and Nausea & vomiting 787.01 [facility] [address] [facility] [id number] [address] [place] [address] Nov, [facility] [address] [id number] [address] [place] [address] Nov, [facility] [address] [facility] [id number] [address] [place] [address] Nov, [facility] [address] [facility] [id number] [address] [place] [address] Nov, [facility] [address] [facility] [id number] [address] [place] [address] Oct, [facility] [address] [facility] [id number] [address] [place] [address] Oct, [facility] [address] [facility] [id number] [address] [place] [address] Oct, [facility] [address] [facility] [id number] [address] [place] [address] Aug, [facility] [address] [facility] [id number] [address] [place] [address] Aug, [facility] [address] [facility] [id number] [address] [place] [address] Aug, [facility] [address] [facility] [id number] [address] [place] [address] Jul, [facility] [address] [facility] [id number] [address] [place] [address] Jul, [facility] [address] [facility] [id number] [address] [place] [address] Jul, [facility] [address] [id number] [address] [place] [address], [place] [address] Jul, [facility] [address] [id number] [address] [place] [address], [place] [address] Jul, [facility] [address] [id number] [address] [place] [address], [place] [address] Jul, [facility] [address] [id number] [address] [place] [address], [place] [address] Jul, [facility] [address] [id number] [address] [place] [address], [place] [address] Jul, [facility] [address] [id number] [address] [place] [address], [place] [address] Jul, [facility] [address] [id number] [address] [place] [address], [place] [address] Jul, [facility] [address] [id number] [address] [place] [address], [place] [address] Jul, [facility] [address] [id number] [address] [place] [address], [place] [address] Jun, [facility] [address] [id number] [address] [place] [address], [place] [address] 14 Jun, 2014 [facility] [address] [id number] [address] [place] [address], [place] [address] Jun, [facility] [address] [id number] [address] [place] [address], [place] [address] 10 Jun, 2014 [facility] [address] [id number] [address] [place] [address], [place] [address] 17 Apr, 2014 [facility] [address] [id number] [address] [place] [address], [place] [address] 17 Apr, 2014 [facility] [address] [id number] [address] [place] [address], [place] [address] 17 Apr, 2014 [facility] [address] [id number] [address] [place] [address], [place] [address] Apr, [facility] [address] [id number] [address] [place] [address], [place] [address] Feb, [facility] [address] [id number] [address] [place] [address], [place] [address] Feb, [facility] [address] [id number] [address] [place] [address], [place] [address] Feb, [facility] [address] [id number] [address] [place] [address], [place] [address] Feb, [facility] [address] [id number] [address] [place] [address], [place] [address] Jan, [facility] [address] [id number] [address] [place] [address], [place] [address] Jan, [facility] [address] [id number] [address] [place] [address], [place] [address] Jan, [facility] [address] [id number] [address] [place] [address], [place] [address] Jan, [facility] [address] [id number] [address] [place] [address], [place] [address] December, [facility] [address] [id number] [address] [place] [address], [place] [address] December, [facility] [address] [id number] [address] [place] [address], [place] [address] December, [facility] [address] [id number] [address] [place] [address], [place] [address] December, [facility] [address] [id number] [address] [place] [address], [place] [address] December, [facility] [address] [id number] [address] [place] [address], [place] [address] December, [facility] [address] [id number] [address] [place] [address], [place] [address] Oct, [facility] [address] [id number] [address] [place] [address], [place] [address] Oct, [facility] [address] [id number] [address] [place] [address], [place] [address] Sep, [facility] [address] [id number] [address] [place] [address], [place] [address] Sep, [facility] [address] [id number] [address] [place] [address], [place] [address] Aug, [facility] [address] [id number] [address] [place] [address], [place] [address] Aug, [facility] [address] [id number] [address] [place] [address], [place] [address] Jul, [facility] [address] [id number] [address] [place] [address], [place] [address] Jul, [facility] [address] [id number] [address] [place] [address], [place] [address] May, [facility] [address] [id number] [address] [place] [address], [place] [address] May, [facility] [address] [id number] [address] [place] [address] May, [facility] [address] [id number] [address] [place] [address], [place] [address] Apr, [facility] [address] [id number] [address] [place] [address] Feb, [facility] [address] [id number] [address] [place] [address], [place] [address] Feb, [facility] [address] [id number] [address] [place] [address], [place] [address] Feb, [facility] [address] [id number] [address] [place] [address], [place] [address] Feb, [facility] [address] [id number] [address] [place] [address] Jan, [facility] [address] [id number] [address] [place] [address], [place] [address] Jan, [facility] [address] [id number] [address] [place] [address], [place] [address] December, [facility] [address] [id number] [address] [place] [address], [place] [address] Nov, [facility] [address] [id number] [address] [place] [address], [place] [address] Nov, [facility] [address] [id number] [address] [place] [address], [place] [address] Oct, [facility] [address] [id number] [address] [place] [address], [place] [address] Oct, [facility] [address] [id number] [address] [place] [address], [place] [address] Oct, [facility] [address] [id number] [address] [place] [address], [place] [address] Aug, [facility] [address] [id number] [address] [place] [address], [place] [address] Aug, [facility] [address] [id number] [address] [place] [address], [place] [address] Jul, [facility] [address] [id number] [address] [place] [address], [place] [address] Jul, [facility] [address] [id number] [address] [place] [address], [place] [address] Jul, [facility] [address] [id number] [address] [place] [address], [place] [address] Jul, [facility] [address] [id number] [address] [place] [address], [place] [address] Jun, [facility] [address] [id number] [address] [place] [address], [place] [address] Jun, [facility] [address] [id number] [address] [place] [address], [place] [address] May, [facility] [address] [id number] [address] [place] [address], [place] [address] Mar, [facility] [address] [id number] [address] [place] [address], [place] [address] Mar, [facility] [address] [id number] [address] [place] [address], [place] [address] Jan, [facility] [address] [id number] [address] [place] [address], [place] [address] Jan, [facility] [address] [id number] [address] [place] [address], [place] [address] December, [facility] [address] [id number] [address] [place] [address], [place] [address] December, [facility] [address] [id number] [address] [place] [address], [place] [address] December, [facility] [address] [id number] [address] [place] [address], [place] [address] December, [facility] [address] [id number] [address] [place] [address], [place] [address] Sep, [facility] [address] [id number] [address] [place] [address], [place] [address] Sep, [facility] [address] [id number] [address] [place] [address], [place] [address] Jun, [facility] [address] [id number] [address] [place] [address], [place] [address] 14 Jun, 2011 [facility] [address] [id number] [address] [place] [address], [place] [address] 18 May, 2011 [facility] [address] [id number] [address] [place] [address], [place] [address] Feb, [facility] [address] [id number] [address] [place] [address], [place] [address] Mar, [facility] [address] [facility] [id number] [address] [place] [address] Nov, [facility] [address] [facility] [id number] [address] [place] [address] Sep, [facility] [address] [facility] [id number] [address] [place] [address] Jun, [facility] [address] [facility] [id number] [address] [place] [address] Jun, [facility] [address] [facility] [id number] [address] [place] [address] May, [facility] [address] [facility] [id number] [address] [place] [address] Mar, [facility] [address] [facility] [id number] [address] [place] [address] December, IMMUNIZATIONS No Known Immunizations SOCIAL HISTORY [...]
--- OUTSIDE RECORDS SUMMARY | 2020-02-28 02:31 | XMS REPORT ---
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 Active 116057188 Problem Essential hypertension I10 Active 23986367 Problem Stage 3 chronic kidney disease N18.3 Active 707646303 Problem Memory loss R41.3 Active 45255062 Problem Primary insomnia F51.01 Active 397 2004 Problem Nocturnal hypoxia G47.34 Active 38 9131890 Problem Hyperlipidemia, unspecified hyperlipidemia E78.5 Active 60806415 Problem Gastroesophageal reflux disease without esophagitis K21.9 Active 344640812 Problem Anxiety F41.9 Active 99276853 Problem Other chronic gastritis without hemorrhage K29.50 Active 8038734 ALLERGIES No Information ENCOUNTERS Encounter Location Date Diagnosis [place] [id number] [facility] [id number] [address] [place] [address] Nov, [facility] [address] [facility] [id number] [address] [place] [address] Oct, [place] [address] [address] [facility] [id number] [address] [place] [address] Oct, [place] [address] [place] [id number] [address] [place] [address] Oct, CN palsy, left eye H49.22 ; Primary insomnia F51.01 ; Pulsatile tinnitus of left ear H93.A2 and Seborrheic keratosis L82.1 [facility] [address] [place] [id number] [address] [place] [address] Aug, CN palsy, left eye H49.22 ; Essential hypertension I10 ; Arthralgia, unspecified joint M25.50 and Primary insomnia F51.01 [facility] [address] [place] [id number] [place] [address] Jul, Cranial nerve palsy G52.9 [facility] [address] [place] [id number] [place] [address] Jul, Cranial nerve palsy G52.9 ; Stage 3 chronic kidney disease N18.3 ; Family history of embolic stroke Z82.3 and Numbness of left hand R20.0 [place] [address] [place] [id number] [place] [address] Jun, Anxiety F41.9 and Essential hypertension I10 [place] [address] [address] Jun, [facility] [address] [place] [id number] [place] [address] Jun, Essential hypertension I10 [place] [address] [address] May, [facility] [address] [place] [id number] [place] [address] May, Herpes zoster without compli cation B02.9 and Stage 3 chronic kidney disease N18.3 [facility] [address] [place] [id number] [address] [place] [address] Mar, Essential hypertension I10 [facility] [address] [place] [id number] [place] [address] Feb, [facility] [address] [place] [id number] [address] [place] [address] Feb, [facility] [address] [address] Feb, Essential hypertension I10 a nd Acute midline low back pain without sciatica M54.5 [facility] [address] [address] December, Insect bite (nonvenomous) of lower back and pelvis, initial encounter S30.860A and Bitten or stung by nonvenomous insect and other nonvenomous arthropods, initial encounter W57.XXXA [facility] [address] [address] Nov, Pleurisy R09.1 [place] [address] [address] Nov, [facility] [address] [address] Oct, Hypoxemia R09.02 and Fatigue , unspecified type R53.83 [place] [address] [address] 12 Sep, 2017 Other chronic gastritis with out hemorrhage K29.50 ; Gastroesophageal reflux disease without esophagitis K21.9 ; Hyperlipidemia, unspecified hyperlipidemia E78.5 and Arthralgia, unspecified joint M25.50 [facility] [address] [address] Aug, Hypertriglyceridemia E78.1 [place] [address] [address] 02 May, 2017 Anxiety F41.9 [place] [address] [address] 21 Apr, 2017 Hyperlipidemia, unspecified hyperlipidemia E78.5 ; Gastroesophageal reflux disease without esophagitis K21.9 ; Forgetfulness R68.89 ; Essential hypertension I10 and Anxiety F41.9 [place] [address] [address] 14 Apr, 2017 Hypertriglyceridemia E78.1 [place] [address] [place] [address] Mar, Medicare annual wellness vis it, subsequent Z00.00 ; Hyperlipidemia, unspecified hyperlipidemia E78.5 and Essential hypertension I10 [place] [address] [address] Mar, Forgetfulness R68.89 ; Fatig ue, unspecified type R53.83 and Essential hypertension I10 [place] [address] [address] Mar, Primary osteoarthritis, 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 and Strain of left trapezius muscle, initial encounter S46.812A [place] 75[address]42-[address] Feb, Left wrist pain M25.532 [place] [address] [address] 07 Feb, 2017 Left wrist pain M25.532 [place] [address] [address] December, Hypertriglyceridemia E78.1 ; Encounter for immunization Z23 ; Forgetfulness R68.89 and Fatigue, unspecified type R53.83 [place] [address] [address] Jun, Forgetfulness R68.89 and Rhi nitis, unspecified type J31.0 [place] [address] [address] May, [address] [address] May, Hypoxemia R09.02 ; Memory lo ss R41.3 ; Arthralgia, unspecified joint M25.50 and Rhinitis, unspecified type J31.0 [place] [address] [place] [id number] [address] [place] [address] Mar, Vertigo R42 ; Orthostatic hy potension I95.1 and Chronic gastritis without bleeding, unspecified gastritis type K29.50 [place] [address] [facility] [id number] [address] [place] [address] Feb, [place] [address] [address] Feb, Forgetfulness R68.89 [place] [address] [place] [id number] [place] [address] Jan, [place] [address] [address] Jan, Gastroesophageal reflux dise ase without esophagitis K21.9 ; Fatigue, unspecified type R53.83 ; Weakness R53.1 ; Forgetfulness R68.89 ; Hyperlipidemia, unspecified hyperlipidemia E78.5 and Hearing abnormally acute, unspecified laterality H93.239 [place] [address] [address] Oct, [place] [address] [address] Aug, Upper respiratory tract infe ction, unspecified type J06.9 [place] [address] [address] Aug, [place] [address] [place] [id number] [place] [address] Jun, Acute idiopathic gout, unspe cified site M10.00 ; Encounter for immunization Z23 ; Hyperlipidemia, unspecified hyperlipidemia E78.5 ; Gastroesophageal reflux disease without esophagitis K21.9 and Fatigue, unspecified type R53.83 [place] [address] [place] [id number] [address] [place] [address] 17 Jan, 2015 Esophageal reflux 530.81 and Irritable bowel syndrome 564.1 [place] [address] [place] [id number] [address] [place] [address] 15 Jan, 2015 [place] [address] [place] [id number] [place] [address] Jan, Gastritis 535.50 ; Hx of col onic polyp V12.72 and Positional vertigo 386.11 [facility] [address] [facility] [id number] [address] [place] [address] Jan, [facility] [address] [facility] [id number] [address] [place] [address] Jan, Dizziness 780.4 and Nausea & vomiting 787.01 [facility] [address] [facility] [id number] [address] [place] [address] Nov, [facility] [address] [id number] [address] [place] [address] Nov, [facility] [address] [facility] [id number] [address] [place] [address] Nov, [facility] [address] [facility] [id number] [address] [place] [address] Nov, [facility] [address] [facility] [id number] [address] [place] [address] Oct, [facility] [address] [facility] [id number] [address] [place] [address] Oct, [facility] [address] [facility] [id number] [address] [place] [address] Oct, [facility] [address] [facility] [id number] [address] [place] [address] Aug, [facility] [address] [facility] [id number] [address] [place] [address] Aug, [facility] [address] [facility] [id number] [address] [place] [address] Aug, [facility] [address] [facility] [id number] [address] [place] [address] Jul, [facility] [address] [facility] [id number] [address] [place] [address] Jul, [facility] [address] [facility] [id number] [address] [place] [address] Jul, [facility] [address] [id number] [address] [place] [address], [place] [address] Jul, [facility] [address] [id number] [address] [place] [address], [place] [address] Jul, [facility] [address] [id number] [address] [place] [address], [place] [address] Jul, [facility] [address] [id number] [address] [place] [address], [place] [address] Jul, [facility] [address] [id number] [address] [place] [address], [place] [address] Jul, [facility] [address] [id number] [address] [place] [address], [place] [address] Jul, [facility] [address] [id number] [address] [place] [address], [place] [address] Jul, [facility] [address] [id number] [address] [place] [address], [place] [address] Jul, [facility] [address] [id number] [address] [place] [address], [place] [address] Jun, [facility] [address] [id number] [address] [place] [address], [place] [address] 14 Jun, 2014 [facility] [address] [id number] [address] [place] [address], [place] [address] Jun, [facility] [address] [id number] [address] [place] [address], [place] [address] 10 Jun, 2014 [facility] [address] [id number] [address] [place] [address], [place] [address] 17 Apr, 2014 [facility] [address] [id number] [address] [place] [address], [place] [address] 17 Apr, 2014 [facility] [address] [id number] [address] [place] [address], [place] [address] 17 Apr, 2014 [facility] [address] [id number] [address] [place] [address], [place] [address] Apr, [facility] [address] [id number] [address] [place] [address], [place] [address] Feb, [facility] [address] [id number] [address] [place] [address], [place] [address] Feb, [facility] [address] [id number] [address] [place] [address], [place] [address] Feb, [facility] [address] [id number] [address] [place] [address], [place] [address] Feb, [facility] [address] [id number] [address] [place] [address], [place] [address] Jan, [facility] [address] [id number] [address] [place] [address], [place] [address] Jan, [facility] [address] [id number] [address] [place] [address], [place] [address] Jan, [facility] [address] [id number] [address] [place] [address], [place] [address] Jan, [facility] [address] [id number] [address] [place] [address], [place] [address] December, [facility] [address] [id number] [address] [place] [address], [place] [address] December, [facility] [address] [id number] [address] [place] [address], [place] [address] December, [facility] [address] [id number] [address] [place] [address], [place] [address] December, [facility] [address] [id number] [address] [place] [address], [place] [address] December, [facility] [address] [id number] [address] [place] [address], [place] [address] December, [facility] [address] [id number] [address] [place] [address], [place] [address] Oct, [facility] [address] [id number] [address] [place] [address], [place] [address] Oct, [facility] [address] [id number] [address] [place] [address], [place] [address] Sep, [facility] [address] [id number] [address] [place] [address], [place] [address] Sep, [facility] [address] [id number] [address] [place] [address], [place] [address] Aug, [facility] [address] [id number] [address] [place] [address], [place] [address] Aug, [facility] [address] [id number] [address] [place] [address], [place] [address] Jul, [facility] [address] [id number] [address] [place] [address], [place] [address] Jul, [facility] [address] [id number] [address] [place] [address], [place] [address] May, [facility] [address] [id number] [address] [place] [address], [place] [address] May, [facility] [address] [id number] [address] [place] [address] May, [facility] [address] [id number] [address] [place] [address], [place] [address] Apr, [facility] [address] [id number] [address] [place] [address] Feb, [facility] [address] [id number] [address] [place] [address], [place] [address] Feb, [facility] [address] [id number] [address] [place] [address], [place] [address] Feb, [facility] [address] [id number] [address] [place] [address], [place] [address] Feb, [facility] [address] [id number] [address] [place] [address] Jan, [facility] [address] [id number] [address] [place] [address], [place] [address] Jan, [facility] [address] [id number] [address] [place] [address], [place] [address] December, [facility] [address] [id number] [address] [place] [address], [place] [address] Nov, [facility] [address] [id number] [address] [place] [address], [place] [address] Nov, [facility] [address] [id number] [address] [place] [address], [place] [address] Oct, [facility] [address] [id number] [address] [place] [address], [place] [address] Oct, [facility] [address] [id number] [address] [place] [address], [place] [address] Oct, [facility] [address] [id number] [address] [place] [address], [place] [address] Aug, [facility] [address] [id number] [address] [place] [address], [place] [address] Aug, [facility] [address] [id number] [address] [place] [address], [place] [address] Jul, [facility] [address] [id number] [address] [place] [address], [place] [address] Jul, [facility] [address] [id number] [address] [place] [address], [place] [address] Jul, [facility] [address] [id number] [address] [place] [address], [place] [address] Jul, [facility] [address] [id number] [address] [place] [address], [place] [address] Jun, [facility] [address] [id number] [address] [place] [address], [place] [address] Jun, [facility] [address] [id number] [address] [place] [address], [place] [address] May, [facility] [address] [id number] [address] [place] [address], [place] [address] Mar, [facility] [address] [id number] [address] [place] [address], [place] [address] Mar, [facility] [address] [id number] [address] [place] [address], [place] [address] Jan, [facility] [address] [id number] [address] [place] [address], [place] [address] Jan, [facility] [address] [id number] [address] [place] [address], [place] [address] December, [facility] [address] [id number] [address] [place] [address], [place] [address] December, [facility] [address] [id number] [address] [place] [address], [place] [address] December, [facility] [address] [id number] [address] [place] [address], [place] [address] December, [facility] [address] [id number] [address] [place] [address], [place] [address] Sep, [facility] [address] [id number] [address] [place] [address], [place] [address] Sep, [facility] [address] [id number] [address] [place] [address], [place] [address] Jun, [facility] [address] [id number] [address] [place] [address], [place] [address] 14 Jun, 2011 [facility] [address] [id number] [address] [place] [address], [place] [address] 18 May, 2011 [facility] [address] [id number] [address] [place] [address], [place] [address] Feb, [facility] [address] [id number] [address] [place] [address], [place] [address] Mar, [facility] [address] [facility] [id number] [address] [place] [address] Nov, [facility] [address] [facility] [id number] [address] [place] [address] Sep, [facility] [address] [facility] [id number] [address] [place] [address] Jun, [facility] [address] [facility] [id number] [address] [place] [address] Jun, [facility] [address] [facility] [id number] [address] [place] [address] May, [facility] [address] [facility] [id number] [address] [place] [address] Mar, [facility] [address] [facility] [id number] [address] [place] [address] December, IMMUNIZATIONS No Known Immunizations SOCIAL HISTORY [...]
--- OUTSIDE RECORDS SUMMARY | 2020-02-28 02:31 | XMS REPORT ---
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 Active 048263110 Problem Essential hypertension I10 Active 85540944 Problem Stage 3 chronic kidney disease N18.3 Active 949555813 Problem Memory loss R41.3 Active 43987803 Problem Primary insomnia F51.01 Active 397 2004 Problem Nocturnal hypoxia G47.34 Active 38 1555209 Problem Hyperlipidemia, unspecified hyperlipidemia E78.5 Active 84421366 Problem Gastroesophageal reflux disease without esophagitis K21.9 Active 939496749 Problem Anxiety F41.9 Active 38104254 Problem Other chronic gastritis without hemorrhage K29.50 Active 2272223 ALLERGIES No Information ENCOUNTERS Encounter Location Date Diagnosis [place] [id number] [facility] [id number] [address] [place] [address] Nov, [facility] [address] [facility] [id number] [address] [place] [address] Oct, [place] [address] [facility] [id number] [address] [place] [address] Oct, [place] [address] [place] [id number] [address] [place] [address] Oct, CN palsy, left eye H49.22 ; Primary insomnia F51.01 ; Pulsatile tinnitus of left ear H93.A2 and Seborrheic keratosis L82.1 [facility] [address] [place] [id number] [address] [place] [address] Aug, CN palsy, left eye H49.22 ; Essential hypertension I10 ; Arthralgia, unspecified joint M25.50 and Primary insomnia F51.01 [facility] [address] [place] [id number] [place] [address] Jul, Cranial nerve palsy G52.9 [facility] [address] [place] [id number] [place] [address] Jul, Cranial nerve palsy G52.9 ; Stage 3 chronic kidney disease N18.3 ; Family history of embolic stroke Z82.3 and Numbness of left hand R20.0 [place] [address] [place] [id number] [place] [address] Jun, Anxiety F41.9 and Essential hypertension I10 [place] [address] [address] Jun, [facility] [address] [place] [id number] [place] [address] Jun, Essential hypertension I10 [place] [address] [address] May, [facility] [address] [place] [id number] [place] [address] May, Herpes zoster without compli cation B02.9 and Stage 3 chronic kidney disease N18.3 [facility] [address] [place] [id number] [address] [place] [address] Mar, Essential hypertension I10 [facility] [address] [place] [id number] [place] [address] Feb, [facility] [address] [place] [id number] [address] [place] [address] Feb, [facility] [address] [address] Feb, Essential hypertension I10 a nd Acute midline low back pain without sciatica M54.5 [facility] [address] [address] December, Insect bite (nonvenomous) of lower back and pelvis, initial encounter S30.860A and Bitten or stung by nonvenomous insect and other nonvenomous arthropods, initial encounter W57.XXXA [facility] [address] [address] Nov, Pleurisy R09.1 [place] [address] [address] Nov, [facility] [address] [address] Oct, Hypoxemia R09.02 and Fatigue , unspecified type R53.83 [place] [address] [address] 12 Sep, 2017 Other chronic gastritis with out hemorrhage K29.50 ; Gastroesophageal reflux disease without esophagitis K21.9 ; Hyperlipidemia, unspecified hyperlipidemia E78.5 and Arthralgia, unspecified joint M25.50 [facility] [address] [address] Aug, Hypertriglyceridemia E78.1 [place] [address] [address] 02 May, 2017 Anxiety F41.9 [place] [address] [address] 21 Apr, 2017 Hyperlipidemia, unspecified hyperlipidemia E78.5 ; Gastroesophageal reflux disease without esophagitis K21.9 ; Forgetfulness R68.89 ; Essential hypertension I10 and Anxiety F41.9 [place] [address] [address] 14 Apr, 2017 Hypertriglyceridemia E78.1 [place] [address] [place] [address] Mar, Medicare annual wellness vis it, subsequent Z00.00 ; Hyperlipidemia, unspecified hyperlipidemia E78.5 and Essential hypertension I10 [place] [address] [address] Mar, Forgetfulness R68.89 ; Fatig ue, unspecified type R53.83 and Essential hypertension I10 [place] [address] [address] Mar, Primary osteoarthritis, 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 and Strain of left trapezius muscle, initial encounter S46.812A [place] 9[address]642[address] Feb, Left wrist pain M25.532 [place] [address] [address] 07 Feb, 2017 Left wrist pain M25.532 [place] [address] [address] December, Hypertriglyceridemia E78.1 ; Encounter for immunization Z23 ; Forgetfulness R68.89 and Fatigue, unspecified type R53.83 [place] [address] [address] Jun, Forgetfulness R68.89 and Rhi nitis, unspecified type J31.0 [place] [address] [address] May, [address] [address] May, Hypoxemia R09.02 ; Memory lo ss R41.3 ; Arthralgia, unspecified joint M25.50 and Rhinitis, unspecified type J31.0 [place] [address] [place] [id number] [place] [address] Mar, Vertigo R42 ; Orthostatic hy potension I95.1 and Chronic gastritis without bleeding, unspecified gastritis type K29.50 [place] [address] [facility] [id number] [address] [place] [address] Feb, [place] [address] [address] Feb, Forgetfulness R68.89 [place] [address] [place] [id number] [place] [address] Jan, [place] [address] [address] Jan, Gastroesophageal reflux dise ase without esophagitis K21.9 ; Fatigue, unspecified type R53.83 ; Weakness R53.1 ; Forgetfulness R68.89 ; Hyperlipidemia, unspecified hyperlipidemia E78.5 and Hearing abnormally acute, unspecified laterality H93.239 [place] [address] [address] Oct, [place] [address] [address] Aug, Upper respiratory tract infe ction, unspecified type J06.9 [place] [address] [address] Aug, [place] [address] [place] [id number] [place] [address] Jun, Acute idiopathic gout, unspe cified site M10.00 ; Encounter for immunization Z23 ; Hyperlipidemia, unspecified hyperlipidemia E78.5 ; Gastroesophageal reflux disease without esophagitis K21.9 and Fatigue, unspecified type R53.83 [place] [address] [place] [id number] [address] [place] [address] 17 Jan, 2015 Esophageal reflux 530.81 and Irritable bowel syndrome 564.1 [place] [address] [place] [id number] [address] [place] [address] 15 Jan, 2015 [place] [address] [place] [id number] [place] [address] Jan, Gastritis 535.50 ; Hx of col onic polyp V12.72 and Positional vertigo 386.11 [facility] [address] [facility] [id number] [address] [place] [address] Jan, [facility] [address] [facility] [id number] [address] [place] [address] Jan, Dizziness 780.4 and Nausea & vomiting 787.01 [facility] [address] [facility] [id number] [address] [place] [address] Nov, [facility] [address] [id number] [address] [place] [address] Nov, [facility] [address] [facility] [id number] [address] [place] [address] Nov, [facility] [address] [facility] [id number] [address] [place] [address] Nov, [facility] [address] [facility] [id number] [address] [place] [address] Oct, [facility] [address] [facility] [id number] [address] [place] [address] Oct, [facility] [address] [facility] [id number] [address] [place] [address] Oct, [facility] [address] [facility] [id number] [address] [place] [address] Aug, [facility] [address] [facility] [id number] [address] [place] [address] Aug, [facility] [address] [facility] [id number] [address] [place] [address] Aug, [facility] [address] [facility] [id number] [address] [place] [address] Jul, [facility] [address] [facility] [id number] [address] [place] [address] Jul, [facility] [address] [facility] [id number] [address] [place] [address] Jul, [facility] [address] [id number] [address] [place] [address], [place] [address] Jul, [facility] [address] [id number] [address] [place] [address], [place] [address] Jul, [facility] [address] [id number] [address] [place] [address], [place] [address] Jul, [facility] [address] [id number] [address] [place] [address], [place] [address] Jul, [facility] [address] [id number] [address] [place] [address], [place] [address] Jul, [facility] [address] [id number] [address] [place] [address], [place] [address] Jul, [facility] [address] [id number] [address] [place] [address], [place] [address] Jul, [facility] [address] [id number] [address] [place] [address], [place] [address] Jul, [facility] [address] [id number] [address] [place] [address], [place] [address] Jun, [facility] [address] [id number] [address] [place] [address], [place] [address] 14 Jun, 2014 [facility] [address] [id number] [address] [place] [address], [place] [address] Jun, [facility] [address] [id number] [address] [place] [address], [place] [address] 10 Jun, 2014 [facility] [address] [id number] [address] [place] [address], [place] [address] 17 Apr, 2014 [facility] [address] [id number] [address] [place] [address], [place] [address] 17 Apr, 2014 [facility] [address] [id number] [address] [place] [address], [place] [address] 17 Apr, 2014 [facility] [address] [id number] [address] [place] [address], [place] [address] Apr, [facility] [address] [id number] [address] [place] [address], [place] [address] Feb, [facility] [address] [id number] [address] [place] [address], [place] [address] Feb, [facility] [address] [id number] [address] [place] [address], [place] [address] Feb, [facility] [address] [id number] [address] [place] [address], [place] [address] Feb, [facility] [address] [id number] [address] [place] [address], [place] [address] Jan, [facility] [address] [id number] [address] [place] [address], [place] [address] Jan, [facility] [address] [id number] [address] [place] [address], [place] [address] Jan, [facility] [address] [id number] [address] [place] [address], [place] [address] Jan, [facility] [address] [id number] [address] [place] [address], [place] [address] December, [facility] [address] [id number] [address] [place] [address], [place] [address] December, [facility] [address] [id number] [address] [place] [address], [place] [address] December, [facility] [address] [id number] [address] [place] [address], [place] [address] December, [facility] [address] [id number] [address] [place] [address], [place] [address] December, [facility] [address] [id number] [address] [place] [address], [place] [address] December, [facility] [address] [id number] [address] [place] [address], [place] [address] Oct, [facility] [address] [id number] [address] [place] [address], [place] [address] Oct, [facility] [address] [id number] [address] [place] [address], [place] [address] Sep, [facility] [address] [id number] [address] [place] [address], [place] [address] Sep, [facility] [address] [id number] [address] [place] [address], [place] [address] Aug, [facility] [address] [id number] [address] [place] [address], [place] [address] Aug, [facility] [address] [id number] [address] [place] [address], [place] [address] Jul, [facility] [address] [id number] [address] [place] [address], [place] [address] Jul, [facility] [address] [id number] [address] [place] [address], [place] [address] May, [facility] [address] [id number] [address] [place] [address], [place] [address] May, [facility] [address] [id number] [address] [place] [address] May, [facility] [address] [id number] [address] [place] [address], [place] [address] Apr, [facility] [address] [id number] [address] [place] [address] Feb, [facility] [address] [id number] [address] [place] [address], [place] [address] Feb, [facility] [address] [id number] [address] [place] [address], [place] [address] Feb, [facility] [address] [id number] [address] [place] [address], [place] [address] Feb, [facility] [address] [id number] [address] [place] [address] Jan, [facility] [address] [id number] [address] [place] [address], [place] [address] Jan, [facility] [address] [id number] [address] [place] [address], [place] [address] December, [facility] [address] [id number] [address] [place] [address], [place] [address] Nov, [facility] [address] [id number] [address] [place] [address], [place] [address] Nov, [facility] [address] [id number] [address] [place] [address], [place] [address] Oct, [facility] [address] [id number] [address] [place] [address], [place] [address] Oct, [facility] [address] [id number] [address] [place] [address], [place] [address] Oct, [facility] [address] [id number] [address] [place] [address], [place] [address] Aug, [facility] [address] [id number] [address] [place] [address], [place] [address] Aug, [facility] [address] [id number] [address] [place] [address], [place] [address] Jul, [facility] [address] [id number] [address] [place] [address], [place] [address] Jul, [facility] [address] [id number] [address] [place] [address], [place] [address] Jul, [facility] [address] [id number] [address] [place] [address], [place] [address] Jul, [facility] [address] [id number] [address] [place] [address], [place] [address] Jun, [facility] [address] [id number] [address] [place] [address], [place] [address] Jun, [facility] [address] [id number] [address] [place] [address], [place] [address] May, [facility] [address] [id number] [address] [place] [address], [place] [address] Mar, [facility] [address] [id number] [address] [place] [address], [place] [address] Mar, [facility] [address] [id number] [address] [place] [address], [place] [address] Jan, [facility] [address] [id number] [address] [place] [address], [place] [address] Jan, [facility] [address] [id number] [address] [place] [address], [place] [address] December, [facility] [address] [id number] [address] [place] [address], [place] [address] December, [facility] [address] [id number] [address] [place] [address], [place] [address] December, [facility] [address] [id number] [address] [place] [address], [place] [address] December, [facility] [address] [id number] [address] [place] [address], [place] [address] Sep, [facility] [address] [id number] [address] [place] [address], [place] [address] Sep, [facility] [address] [id number] [address] [place] [address], [place] [address] Jun, [facility] [address] [id number] [address] [place] [address], [place] [address] 14 Jun, 2011 [facility] [address] [id number] [address] [place] [address], [place] [address] 18 May, 2011 [facility] [address] [id number] [address] [place] [address], [place] [address] Feb, [facility] [address] [id number] [address] [place] [address], [place] [address] Mar, [facility] [address] [facility] [id number] [address] [place] [address] Nov, [facility] [address] [facility] [id number] [address] [place] [address] Sep, [facility] [address] [facility] [id number] [address] [place] [address] Jun, [facility] [address] [facility] [id number] [address] [place] [address] Jun, [facility] [address] [facility] [id number] [address] [place] [address] May, [facility] [address] [facility] [id number] [address] [place] [address] Mar, [facility] [address] [facility] [id number] [address] [place] [address] December, IMMUNIZATIONS No Known Immunizations SOCIAL HISTORY [...]
--- OUTSIDE RECORDS SUMMARY | 2020-02-28 02:32 | XMS REPORT ---
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 Active 948156631 Problem Essential hypertension I10 Active 67100038 Problem Stage 3 chronic kidney disease N18.3 Active 420561976 Problem Memory loss R41.3 Active 90186895 Problem Primary insomnia F51.01 Active 397 2004 Problem Nocturnal hypoxia G47.34 Active 38 1926942 Problem Hyperlipidemia, unspecified hyperlipidemia E78.5 Active 00474499 Problem Gastroesophageal reflux disease without esophagitis K21.9 Active 871677041 Problem Anxiety F41.9 Active 88170177 Problem Other chronic gastritis without hemorrhage K29.50 Active 7146607 ALLERGIES No Information ENCOUNTERS Encounter Location Date Diagnosis [place] [address] [facility] [id number] [address] [place] [address] Nov, [facility] [address] [facility] [id number] [address] [place] [address] Oct, [place] [address] [facility] [id number] [address] [place] [address] Oct, [place] [address] [place] [id number] [address] [place] [address] Oct, CN palsy, left eye H49.22 ; Primary insomnia F51.01 ; Pulsatile tinnitus of left ear H93.A2 and Seborrheic keratosis L82.1 [facility] [address] [place] [id number] [address] [place] [address] Aug, CN palsy, left eye H49.22 ; Essential hypertension I10 ; Arthralgia, unspecified joint M25.50 and Primary insomnia F51.01 [facility] [address] [place] [id number] [place] [address] Jul, Cranial nerve palsy G52.9 [facility] [address] [place] [id number] [place] [address] Jul, Cranial nerve palsy G52.9 ; Stage 3 chronic kidney disease N18.3 ; Family history of embolic stroke Z82.3 and Numbness of left hand R20.0 [place] [address] [place] [id number] [place] [address] Jun, Anxiety F41.9 and Essential hypertension I10 [place] [address] [address] Jun, [facility] [address] [place] [id number] [place] [address] Jun, Essential hypertension I10 [place] [address] [address] May, [facility] [address] [place] [id number] [place] [address] May, Herpes zoster without compli cation B02.9 and Stage 3 chronic kidney disease N18.3 [facility] [address] [place] [id number] [address] [place] [address] Mar, Essential hypertension I10 [facility] [address] [place] [id number] [place] [address] Feb, [facility] [address] [place] [id number] [address] [place] [address] Feb, [facility] [address] [address] Feb, Essential hypertension I10 a nd Acute midline low back pain without sciatica M54.5 [facility] [address] [address] December, Insect bite (nonvenomous) of lower back and pelvis, initial encounter S30.860A and Bitten or stung by nonvenomous insect and other nonvenomous arthropods, initial encounter W57.XXXA [facility] [address] [address] Nov, Pleurisy R09.1 [place] [address] [address] Nov, [facility] [address] [address] Oct, Hypoxemia R09.02 and Fatigue , unspecified type R53.83 [place] [address] [address] 12 Sep, 2017 Other chronic gastritis with out hemorrhage K29.50 ; Gastroesophageal reflux disease without esophagitis K21.9 ; Hyperlipidemia, unspecified hyperlipidemia E78.5 and Arthralgia, unspecified joint M25.50 [facility] [address] [address] Aug, Hypertriglyceridemia E78.1 [place] [address] [address] 02 May, 2017 Anxiety F41.9 [place] [address] [address] 21 Apr, 2017 Hyperlipidemia, unspecified hyperlipidemia E78.5 ; Gastroesophageal reflux disease without esophagitis K21.9 ; Forgetfulness R68.89 ; Essential hypertension I10 and Anxiety F41.9 [place] [address] [address] 14 Apr, 2017 Hypertriglyceridemia E78.1 [place] [address] [place] [address] Mar, Medicare annual wellness vis it, subsequent Z00.00 ; Hyperlipidemia, unspecified hyperlipidemia E78.5 and Essential hypertension I10 [place] [address] [address] Mar, Forgetfulness R68.89 ; Fatig ue, unspecified type R53.83 and Essential hypertension I10 [place] [address] [address] Mar, Primary osteoarthritis, 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 and Strain of left trapezius muscle, initial encounter S46.812A [place] [address] Feb, Left wrist pain M25.532 [place] [address] [address] 07 Feb, 2017 Left wrist pain M25.532 [place] [address] [address] December, Hypertriglyceridemia E78.1 ; Encounter for immunization Z23 ; Forgetfulness R68.89 and Fatigue, unspecified type R53.83 [place] [address] [address] Jun, Forgetfulness R68.89 and Rhi nitis, unspecified type J31.0 [place] [address] [address] May, [address] [address] May, Hypoxemia R09.02 ; Memory lo ss R41.3 ; Arthralgia, unspecified joint M25.50 and Rhinitis, unspecified type J31.0 [place] [address] [place] [id number] [address] [place] [address] Mar, Vertigo R42 ; Orthostatic hy potension I95.1 and Chronic gastritis without bleeding, unspecified gastritis type K29.50 [place] [address] [facility] [id number] [address] [place] [address] Feb, [place] [address] [address] Feb, Forgetfulness R68.89 [place] [address] [place] [id number] [place] [address] Jan, [place] [address] [address] Jan, Gastroesophageal reflux dise ase without esophagitis K21.9 ; Fatigue, unspecified type R53.83 ; Weakness R53.1 ; Forgetfulness R68.89 ; Hyperlipidemia, unspecified hyperlipidemia E78.5 and Hearing abnormally acute, unspecified laterality H93.239 [place] [address] [address] Oct, [place] [address] [address] Aug, Upper respiratory tract infe ction, unspecified type J06.9 [place] [address] [address] Aug, [place] [address] [place] [id number] [place] [address] Jun, Acute idiopathic gout, unspe cified site M10.00 ; Encounter for immunization Z23 ; Hyperlipidemia, unspecified hyperlipidemia E78.5 ; Gastroesophageal reflux disease without esophagitis K21.9 and Fatigue, unspecified type R53.83 [place] [address] [place] [id number] [address] [place] [address] 17 Jan, 2015 Esophageal reflux 530.81 and Irritable bowel syndrome 564.1 [place] [address] [place] [id number] [address] [place] [address] 15 Jan, 2015 [place] [address] [place] [id number] [place] [address] Jan, Gastritis 535.50 ; Hx of col onic polyp V12.72 and Positional vertigo 386.11 [facility] [address] [facility] [id number] [address] [place] [address] Jan, [facility] [address] [facility] [id number] [address] [place] [address] Jan, Dizziness 780.4 and Nausea & vomiting 787.01 [facility] [address] [facility] [id number] [address] [place] [address] Nov, [facility] [address] [id number] [address] [place] [address] Nov, [facility] [address] [facility] [id number] [address] [place] [address] Nov, [facility] [address] [facility] [id number] [address] [place] [address] Nov, [facility] [address] [facility] [id number] [address] [place] [address] Oct, [facility] [address] [facility] [id number] [address] [place] [address] Oct, [facility] [address] [facility] [id number] [address] [place] [address] Oct, [facility] [address] [facility] [id number] [address] [place] [address] Aug, [facility] [address] [facility] [id number] [address] [place] [address] Aug, [facility] [address] [facility] [id number] [address] [place] [address] Aug, [facility] [address] [facility] [id number] [address] [place] [address] Jul, [facility] [address] [facility] [id number] [address] [place] [address] Jul, [facility] [address] [facility] [id number] [address] [place] [address] Jul, [facility] [address] [id number] [address] [place] [address], [place] [address] Jul, [facility] [address] [id number] [address] [place] [address], [place] [address] Jul, [facility] [address] [id number] [address] [place] [address], [place] [address] Jul, [facility] [address] [id number] [address] [place] [address], [place] [address] Jul, [facility] [address] [id number] [address] [place] [address], [place] [address] Jul, [facility] [address] [id number] [address] [place] [address], [place] [address] Jul, [facility] [address] [id number] [address] [place] [address], [place] [address] Jul, [facility] [address] [id number] [address] [place] [address], [place] [address] Jul, [facility] [address] [id number] [address] [place] [address], [place] [address] Jun, [facility] [address] [id number] [address] [place] [address], [place] [address] 14 Jun, 2014 [facility] [address] [id number] [address] [place] [address], [place] [address] Jun, [facility] [address] [id number] [address] [place] [address], [place] [address] 10 Jun, 2014 [facility] [address] [id number] [address] [place] [address], [place] [address] 17 Apr, 2014 [facility] [address] [id number] [address] [place] [address], [place] [address] 17 Apr, 2014 [facility] [address] [id number] [address] [place] [address], [place] [address] 17 Apr, 2014 [facility] [address] [id number] [address] [place] [address], [place] [address] Apr, [facility] [address] [id number] [address] [place] [address], [place] [address] Feb, [facility] [address] [id number] [address] [place] [address], [place] [address] Feb, [facility] [address] [id number] [address] [place] [address], [place] [address] Feb, [facility] [address] [id number] [address] [place] [address], [place] [address] Feb, [facility] [address] [id number] [address] [place] [address], [place] [address] Jan, [facility] [address] [id number] [address] [place] [address], [place] [address] Jan, [facility] [address] [id number] [address] [place] [address], [place] [address] Jan, [facility] [address] [id number] [address] [place] [address], [place] [address] Jan, [facility] [address] [id number] [address] [place] [address], [place] [address] December, [facility] [address] [id number] [address] [place] [address], [place] [address] December, [facility] [address] [id number] [address] [place] [address], [place] [address] December, [facility] [address] [id number] [address] [place] [address], [place] [address] December, [facility] [address] [id number] [address] [place] [address], [place] [address] December, [facility] [address] [id number] [address] [place] [address], [place] [address] December, [facility] [address] [id number] [address] [place] [address], [place] [address] Oct, [facility] [address] [id number] [address] [place] [address], [place] [address] Oct, [facility] [address] [id number] [address] [place] [address], [place] [address] Sep, [facility] [address] [id number] [address] [place] [address], [place] [address] Sep, [facility] [address] [id number] [address] [place] [address], [place] [address] Aug, [facility] [address] [id number] [address] [place] [address], [place] [address] Aug, [facility] [address] [id number] [address] [place] [address], [place] [address] Jul, [facility] [address] [id number] [address] [place] [address], [place] [address] Jul, [facility] [address] [id number] [address] [place] [address], [place] [address] May, [facility] [address] [id number] [address] [place] [address], [place] [address] May, [facility] [address] [id number] [address] [place] [address] May, [facility] [address] [id number] [address] [place] [address], [place] [address] Apr, [facility] [address] [id number] [address] [place] [address] Feb, [facility] [address] [id number] [address] [place] [address], [place] [address] Feb, [facility] [address] [id number] [address] [place] [address], [place] [address] Feb, [facility] [address] [id number] [address] [place] [address], [place] [address] Feb, [facility] [address] [id number] [address] [place] [address] Jan, [facility] [address] [id number] [address] [place] [address], [place] [address] Jan, [facility] [address] [id number] [address] [place] [address], [place] [address] December, [facility] [address] [id number] [address] [place] [address], [place] [address] Nov, [facility] [address] [id number] [address] [place] [address], [place] [address] Nov, [facility] [address] [id number] [address] [place] [address], [place] [address] Oct, [facility] [address] [id number] [address] [place] [address], [place] [address] Oct, [facility] [address] [id number] [address] [place] [address], [place] [address] Oct, [facility] [address] [id number] [address] [place] [address], [place] [address] Aug, [facility] [address] [id number] [address] [place] [address], [place] [address] Aug, [facility] [address] [id number] [address] [place] [address], [place] [address] Jul, [facility] [address] [id number] [address] [place] [address], [place] [address] Jul, [facility] [address] [id number] [address] [place] [address], [place] [address] Jul, [facility] [address] [id number] [address] [place] [address], [place] [address] Jul, [facility] [address] [id number] [address] [place] [address], [place] [address] Jun, [facility] [address] [id number] [address] [place] [address], [place] [address] Jun, [facility] [address] [id number] [address] [place] [address], [place] [address] May, [facility] [address] [id number] [address] [place] [address], [place] [address] Mar, [facility] [address] [id number] [address] [place] [address], [place] [address] Mar, [facility] [address] [id number] [address] [place] [address], [place] [address] Jan, [facility] [address] [id number] [address] [place] [address], [place] [address] Jan, [facility] [address] [id number] [address] [place] [address], [place] [address] December, [facility] [address] [id number] [address] [place] [address], [place] [address] December, [facility] [address] [id number] [address] [place] [address], [place] [address] December, [facility] [address] [id number] [address] [place] [address], [place] [address] December, [facility] [address] [id number] [address] [place] [address], [place] [address] Sep, [facility] [address] [id number] [address] [place] [address], [place] [address] Sep, [facility] [address] [id number] [address] [place] [address], [place] [address] Jun, [facility] [address] [id number] [address] [place] [address], [place] [address] 14 Jun, 2011 [facility] [address] [id number] [address] [place] [address], [place] [address] 18 May, 2011 [facility] [address] [id number] [address] [place] [address], [place] [address] Feb, [facility] [address] [id number] [address] [place] [address], [place] [address] Mar, [facility] [address] [facility] [id number] [address] [place] [address] Nov, [facility] [address] [facility] [id number] [address] [place] [address] Sep, [facility] [address] [facility] [id number] [address] [place] [address] Jun, [facility] [address] [facility] [id number] [address] [place] [address] Jun, [facility] [address] [facility] [id number] [address] [place] [address] May, [facility] [address] [facility] [id number] [address] [place] [address] Mar, [facility] [address] [facility] [id number] [address] [place] [address] December, IMMUNIZATIONS No Known Immunizations SOCIAL HISTORY [...]
--- OUTSIDE RECORDS SUMMARY | 2020-02-28 02:32 | XMS REPORT ---
Author Author Lisy Valdovinos Doctor Organization [facility] Address Unknown Phone Unavailable Care Team Providers Care Biodiesel Product Manager Name Role Phone Migration, Doctor Unavailable Unavailable PROBLEMS Type Condition ICD9-CM Code OAE64-ML Code Onset Dates Condition S tatus SNOMED Code Problem Hypertriglyceridemia E78.1 Active 538888373 Problem Gastroesophageal reflux disease with esophagitis K 21.0 Active 133735652 Problem Colon polyp K63.5 Active 74083445 Problem Rhinitis, unspecified type J31.0 Act michael 37032184 Problem Primary osteoarthritis, 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 Active 089482336 Problem Essential hypertension I10 Active 50430278 Problem Stage 3 chronic kidney disease N18.3 Active 497984674 Problem Memory loss R41.3 Active 87708050 Problem Primary insomnia F51.01 Active 397 2004 Problem Nocturnal hypoxia G47.34 Active 38 7497909 Problem Hyperlipidemia, unspecified hyperlipidemia E78.5 Active 43268541 Problem Gastroesophageal reflux disease without esophagitis K21.9 Active 891907352 Problem Anxiety F41.9 Active 03541230 Problem Other chronic gastritis without hemorrhage K29.50 Active 5494728 ALLERGIES No Information ENCOUNTERS Encounter Location Date Diagnosis [place] [address] [place] [id number] [place] [address] Nov, [facility] [address] [place] [id number] [address] [place] [address] Oct, [facility] [place] [address] [place] [place] [id number] [address] [place] [address] Oct, [place] [address] [place] [id number] [place] [address] Oct, CN palsy, left eye H49.22 ; Primary insomnia F51.01 ; Pulsatile tinnitus of left ear H93.A2 and Seborrheic keratosis L82.1 [facility] [place] [address] [place] [place] [id number] [address] [place] [address] Aug, CN palsy, left eye H49.22 ; Essential hypertension I10 ; Arthralgia, unspecified joint M25.50 and Primary insomnia F51.01 [facility] [place] [address] [facility] [id number] [address] [place] [address] Jul, Cranial nerve palsy G52.9 [facility] [place] [address] [place] [id number] [place] [address] Jul, Cranial nerve palsy G52.9 ; Stage 3 chronic kidney disease N18.3 ; Family history of embolic stroke Z82.3 and Numbness of left hand R20.0 [place] [address] [place] [id number] [address] [place] [address] Jun, Anxiety F41.9 and Essential hypertension I10 [place] [address] [place] [id number] [address] [place] [address] Jun, [place] [address] [place] [id number] [address] [place] [address] Jun, Essential hypertension I10 [facility] [place] [address] [place] [id number] [place] [address] May, [facility] [place] [address] [place] [id number] [place] [address] May, Herpes zoster without compli cation B02.9 and Stage 3 chronic kidney disease N18.3 [facility] [place] [address] [place] [id number] [place] [address] Mar, Essential hypertension I10 [facility] [place] [address] [facility] [id number] [address] [place] [address] Feb, [facility] [place] [address] [facility] [id number] [address] [place] [address] Feb, [facility] [place] [address] [facility] [id number] [address] [place] [address] Feb, Essential hypertension I10 a nd Acute midline low back pain without sciatica M54.5 [facility] [address] [place] [id number] [address] [place] [address] December, Insect bite (nonvenomous) of lower back and pelvis, initial encounter S30.860A and Bitten or stung by nonvenomous insect and other nonvenomous arthropods, initial encounter W57.XXXA [facility] [place] [address] [address] Nov, Pleurisy R09.1 [place] [address] [address] Nov, [place] [address] [address] Oct, Hypoxemia R09.02 and Fatigue , unspecified type R53.83 [place] [address] [address] Sep, Other chronic gastritis with out hemorrhage K29.50 ; Gastroesophageal reflux disease without esophagitis K21.9 ; Hyperlipidemia, unspecified hyperlipidemia E78.5 and Arthralgia, unspecified joint M25.50 [place] [address] [address] Aug, Hypertriglyceridemia E78.1 [place] [address] [address] May, Anxiety F41.[address] [address] Apr, Hyperlipidemia, unspecified hyperlipidemia E78.5 ; Gastroesophageal reflux disease without esophagitis K21.9 ; Forgetfulness R68.89 ; Essential hypertension I10 and Anxiety F41.9 [place] [address] [address] Apr, Hypertriglyceridemia E78.1 [place] [address] [address] Mar, Medicare annual wellness vis it, subsequent Z00.00 ; Hyperlipidemia, unspecified hyperlipidemia E78.5 and Essential hypertension I10 [place] [address] [place] [id number] [place] [address] Mar, Forgetfulness R68.89 ; Fatig ue, unspecified type R53.83 and Essential hypertension I10 [place] [address] [place] [id number] [place] [address] Mar, Primary osteoarthritis, 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 and Strain of left trapezius muscle, initial encounter S46.812A [place] [address] [place] [id number] [place] [address] Feb, Left wrist pain M25.532 [place] [address] [address] Feb, Left wrist pain M25.532 [place] [address] [address] December, Hypertriglyceridemia E78.1 ; Encounter for immunization Z23 ; Forgetfulness R68.89 and Fatigue, unspecified type R53.83 [place] [address] [address] Jun, Forgetfulness R68.89 and Rhi nitis, unspecified type J31.0 [place] [address] [address] May, [place] [address] [address] May, Hypoxemia R09.02 ; Memory lo ss R41.3 ; Arthralgia, unspecified joint M25.50 and Rhinitis, unspecified type J31.0 [place] [address] [place] [id number] [place] [address] Mar, Vertigo R42 ; Orthostatic hy potension I95.1 and Chronic gastritis without bleeding, unspecified gastritis type K29.50 [place] [address] [place] [id number] [place] [address] Feb, [place] [address] [place] [id number] [address] [place] [address] Feb, Forgetfulness R68.89 [place] [address] [address] 24 Jan, [address] [address] Jan, Gastroesophageal reflux dise ase without esophagitis K21.9 ; Fatigue, unspecified type R53.83 ; Weakness R53.1 ; Forgetfulness R68.89 ; Hyperlipidemia, unspecified hyperlipidemia E78.5 and Hearing abnormally acute, unspecified laterality H93.[address] [address] Oct, [address] [address] Aug, Upper respiratory tract infe ction, unspecified type J06.[address] [address] Aug, [address] [address] Jun, Acute idiopathic gout, unspe cified site M10.00 ; Encounter for immunization Z23 ; Hyperlipidemia, unspecified hyperlipidemia E78.5 ; Gastroesophageal reflux disease without esophagitis K21.9 and Fatigue, unspecified type R53.83 [place] [id number] [place] [address] 17 Jan, 2015 Esophageal reflux 530.81 and Irritable bowel syndrome 564.[address] [address] Jan, [address] [address] Jan, Gastritis 535.50 ; Hx of col onic polyp V12.72 and Positional vertigo 386.[address] [place] [address] Jan, [facility] [address] [id number] [address] [place] [address] Jan, Dizziness 780.4 and Nausea & vomiting 787.01 [facility] [address] [id number] [address] [place] [address] Nov, [facility] [address] [id number] [address] [place] [address] Nov, [facility] [address] [id number] [address] [place] [address], [place] [address] Nov, [facility] [address] [id number] [address] [place] [address] Nov, [facility] [address] [id number] [address] [place] [address] Oct, [facility] [address] [id number] [address] [place] [address] Oct, [facility] [address] [id number] [address] [place] [address] Oct, [facility] [address] [id number] [address] [place] [address] Aug, [facility] [address] [id number] [address] [place] [address] Aug, [facility] [address] [id number] [address] [place] [address] Aug, [facility] [address] [id number] [address] [place] [address] Jul, [facility] [address] [id number] [address] [place] [address] Jul, [facility] [address] [id number] [address] [place] [address] Jul, [facility] [address] [id number] [address] [place] [address] Jul, [facility] [address] [id number] [address] [place] [address], [place] [address] Jul, [facility] [place] [facility] [address] [id number] [address] [place] [address], [place] [address] 08 Jul, 2014 [facility] [address] [id number] [address] [place] [address], [place] [address] Jul, [facility] [place] [facility] [address] [id number] [address] [place] [address], [place] [address] Jul, [facility] [place] [facility] [address] [id number] [address] [place] [address], [place] [address] Jul, [facility] [place] [facility] [address] [id number] [address] [place] [address], [place] [address] Jul, [facility] [place] [facility] [address] [id number] [address] [place] [address], [place] [address] Jul, [facility] [place] [facility] [address] [id number] [address] [place] [address], [place] [address] 14 Jun, 2014 [facility] [place] [facility] [address] [id number] [address] [place] [address], [place] [address] 14 Jun, 2014 [facility] [place] [facility] [address] [id number] [address] [place] [address], [place] [address] Jun, [facility] [place] [facility] [address] [id number] [address] [place] [address], [place] [address] Jun, [facility] [place] [facility] [address] [id number] [address] [place] [address], [place] [address] 17 Apr, 2014 [facility] [place] [facility] [address] [id number] [address] [place] [address], [place] [address] 17 Apr, 2014 [facility] [place] [facility] [address] [id number] [address] [place] [address], [place] [address] 17 Apr, 2014 [facility] [place] [facility] [address] [id number] [address] [place] [address], [place] [address] 17 Apr, 2014 [facility] [place] [facility] [address] [id number] [facility] [place] [address] Feb, [facility] [address] [id number] [address] [place] [address], [place] [address] Feb, [facility] [address] [id number] [facility] [place] [address] Feb, [facility] [address] [id number] [address] [place] [address], [place] [address] Feb, [facility] [address] [id number] [address] [place] [address], [place] [address] Jan, [facility] [address] [id number] [address] [place] [address], [place] [address] Jan, [facility] [address] [id number] [address] [place] [address], [place] [address] Jan, [facility] [address] [id number] [address] [place] [address], [place] [address] Jan, [facility] [address] [id number] [address] [place] [address], [place] [address] December, [facility] [address] [id number] [address] [place] [address], [place] [address] December, [facility] [address] [id number] [address] [place] [address], [place] [address] December, [facility] [address] [id number] [address] [place] [address], [place] [address] December, [facility] [address] [id number] [address] [place] [address], [place] [address] December, [facility] [address] [id number] [address] [place] [address], [place] [address] December, [facility] [address] [id number] [address] [place] [address], [place] [address] Oct, [facility] [address] [id number] [address] [place] [address], [place] [address] Oct, [facility] [address] [id number] [address] [place] [address], [place] [address] Sep, [facility] [address] [id number] [address] [place] [address], [place] [address] Sep, [facility] [address] [id number] [address] [place] [address], [place] [address] Aug, [facility] [address] [id number] [address] [place] [address], [place] [address] Aug, [facility] [address] [id number] [address] [place] [address], [place] [address] Jul, [facility] [address] [id number] [address] [place] [address], [place] [address] Jul, [facility] [address] [id number] [address] [place] [address], [place] [address] May, [facility] [address] [id number] [address] [place] [address], [place] [address] May, [facility] [address] [id number] [address] [place] [address], [place] [address] May, [facility] [address] [id number] [address] [place] [address], [place] [address] Apr, [facility] [address] [id number] [address] [place] [address], [place] [address] Feb, [facility] [address] [id number] [address] [place] [address] Feb, [facility] [address] [id number] [address] [place] [address], [place] [address] Feb, [facility] [address] [id number] [address] [place] [address], [place] [address] Feb, [facility] [address] [id number] [address] [place] [address], [place] [address] Jan, [facility] [address] [id number] [address] [place] [address], [place] [address] Jan, [facility] [address] [id number] [address] [place] [address], [place] [address] December, [facility] [address] [id number] [address] [place] [address], [place] [address] 16 Nov, 2012 [facility] [address] [id number] [address] [place] [address], [place] [address] 04 Nov, 2012 [facility] [address] [id number] [address] [place] [address], [place] [address] 13 Oct, 2012 [facility] [address] [id number] [address] [place] [address], [place] [address] 06 Oct, 2012 [facility] [address] [id number] [address] [place] [address], [place] [address] Oct, [facility] [address] [id number] [address] [place] [address], [place] [address] Aug, [facility] [address] [id number] [address] [place] [address], [place] [address] Aug, [facility] [address] [id number] [address] [place] [address], [place] [address] Jul, [facility] [address] [id number] [address] [place] [address], [place] [address] Jul, [facility] [address] [id number] [address] [place] [address], [place] [address] Jul, [facility] [address] [id number] [address] [place] [address], [place] [address] Jul, [facility] [address] [id number] [address] [place] [address], [place] [address] Jun, [facility] [address] [id number] [address] [place] [address], [place] [address] Jun, [facility] [address] [id number] [address] [place] [address], [place] [address] May, [facility] [place] [facility] [address] [id number] [address] [place] [address], [place] [address] Mar, [facility] [address] [id number] [address] [place] [address], [place] [address] Mar, [facility] [address] [id number] [address] [place] [address], [place] [address] Jan, [facility] [address] [id number] [address] [place] [address], [place] [address] Jan, [facility] [address] [id number] [address] [place] [address], [place] [address] December, [facility] [address] [id number] [address] [place] [address], [place] [address] December, [facility] [address] [id number] [address] [place] [address], [place] [address] December, [facility] [address] [id number] [address] [place] [address], [place] [address] December, [facility] [address] [id number] [address] [place] [address], [place] [address] Sep, [facility] [address] [id number] [address] [place] [address], [place] [address] Sep, [facility] [address] [id number] [address] [place] [address], [place] [address] 14 Jun, 2011 [facility] [address] [id number] [address] [place] [address], [place] [address] 14 Jun, 2011 [facility] [address] [id number] [address] [place] [address], [place] [address] 18 May, 2011 [facility] [address] [id number] [address] [place] [address], [place] [address] Feb, [facility] [address] [id number] [address] [place] [address], [place] [address] 10 Mar, 2010 [facility] [address] [id number] [address] [place] [address] Nov, [facility] [address] [facility] [id number] [address] [place] [address] Sep, [facility] [address] [facility] [id number] [address] [place] [address] Jun, [facility] [address] [facility] [id number] [address] [place] [address] Jun, [facility] [address] [facility] [id number] [address] [place] [address] May, [facility] [address] [facility] [id number] [address] [place] [address] Mar, [facility] [address] [facility] [id number] [address] [place] [address] December, IMMUNIZATIONS No Known Immunizations SOCIAL HISTORY Never Assessed REASON FOR VISIT PLAN OF CARE VITAL SIGNS Blood pressure systolic 130 mmHg 2014-08-13 Blood pressure diastolic 80 mmHg 2014-08-13 MEDICATIONS Unknown Medications RESULTS No Results PROCEDURES [...]
--- OUTSIDE RECORDS SUMMARY | 2020-02-28 02:32 | XMS REPORT ---
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 Active 919055128 Problem Essential hypertension I10 Active 89151239 Problem Stage 3 chronic kidney disease N18.3 Active 000703718 Problem Memory loss R41.3 Active 91559915 Problem Primary insomnia F51.01 Active 397 2004 Problem Nocturnal hypoxia G47.34 Active 38 8910688 Problem Hyperlipidemia, unspecified hyperlipidemia E78.5 Active 25724920 Problem Gastroesophageal reflux disease without esophagitis K21.9 Active 084263989 Problem Anxiety F41.9 Active 72353850 Problem Other chronic gastritis without hemorrhage K29.50 Active 7675282 ALLERGIES No Information ENCOUNTERS Encounter Location Date Diagnosis [place] [id number] [facility] [id number] [address] [place] [address] Nov, [facility] [address] [facility] [id number] [address] [place] [address] Oct, [place] [address] [facility] [id number] [address] [place] [address] Oct, [place] [address] [address] [place] [id number] [address] [place] [address] Oct, CN palsy, left eye H49.22 ; Primary insomnia F51.01 ; Pulsatile tinnitus of left ear H93.A2 and Seborrheic keratosis L82.1 [facility] [address] [place] [id number] [address] [place] [address] Aug, CN palsy, left eye H49.22 ; Essential hypertension I10 ; Arthralgia, unspecified joint M25.50 and Primary insomnia F51.01 [facility] [address] [place] [id number] [place] [address] Jul, Cranial nerve palsy G52.9 [facility] [address] [place] [id number] [place] [address] Jul, Cranial nerve palsy G52.9 ; Stage 3 chronic kidney disease N18.3 ; Family history of embolic stroke Z82.3 and Numbness of left hand R20.0 [place] [address] [place] [id number] [place] [address] Jun, Anxiety F41.9 and Essential hypertension I10 [place] [address] [address] Jun, [facility] [address] [place] [id number] [place] [address] Jun, Essential hypertension I10 [place] [address] [address] May, [facility] [address] [place] [id number] [place] [address] May, Herpes zoster without compli cation B02.9 and Stage 3 chronic kidney disease N18.3 [facility] [address] [place] [id number] [address] [place] [address] Mar, Essential hypertension I10 [facility] [address] [place] [id number] [place] [address] Feb, [facility] [address] [place] [id number] [address] [place] [address] Feb, [facility] [address] [address] Feb, Essential hypertension I10 a nd Acute midline low back pain without sciatica M54.5 [facility] [address] [address] December, Insect bite (nonvenomous) of lower back and pelvis, initial encounter S30.860A and Bitten or stung by nonvenomous insect and other nonvenomous arthropods, initial encounter W57.XXXA [facility] [address] [address] Nov, Pleurisy R09.1 [place] [address] [address] Nov, [facility] [address] [address] Oct, Hypoxemia R09.02 and Fatigue , unspecified type R53.83 [place] [address] [address] 12 Sep, 2017 Other chronic gastritis with out hemorrhage K29.50 ; Gastroesophageal reflux disease without esophagitis K21.9 ; Hyperlipidemia, unspecified hyperlipidemia E78.5 and Arthralgia, unspecified joint M25.50 [facility] [address] [address] Aug, Hypertriglyceridemia E78.1 [place] [address] [address] 02 May, 2017 Anxiety F41.9 [place] [address] [address] 21 Apr, 2017 Hyperlipidemia, unspecified hyperlipidemia E78.5 ; Gastroesophageal reflux disease without esophagitis K21.9 ; Forgetfulness R68.89 ; Essential hypertension I10 and Anxiety F41.9 [place] [address] [address] 14 Apr, 2017 Hypertriglyceridemia E78.1 [place] [address] [place] [address] Mar, Medicare annual wellness vis it, subsequent Z00.00 ; Hyperlipidemia, unspecified hyperlipidemia E78.5 and Essential hypertension I10 [place] [address] [address] Mar, Forgetfulness R68.89 ; Fatig ue, unspecified type R53.83 and Essential hypertension I10 [place] [address] [address] Mar, Primary osteoarthritis, 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 and Strain of left trapezius muscle, initial encounter S46.812A [place] 95[address]32[address] Feb, Left wrist pain M25.532 [place] [address] [address] 07 Feb, 2017 Left wrist pain M25.532 [place] [address] [address] December, Hypertriglyceridemia E78.1 ; Encounter for immunization Z23 ; Forgetfulness R68.89 and Fatigue, unspecified type R53.83 [place] [address] [address] Jun, Forgetfulness R68.89 and Rhi nitis, unspecified type J31.0 [place] [address] [address] May, [address] [address] May, Hypoxemia R09.02 ; Memory lo ss R41.3 ; Arthralgia, unspecified joint M25.50 and Rhinitis, unspecified type J31.0 [place] [address] [address] [place] [id number] [address] [place] [address] Mar, Vertigo R42 ; Orthostatic hy potension I95.1 and Chronic gastritis without bleeding, unspecified gastritis type K29.50 [place] [address] [facility] [id number] [address] [place] [address] Feb, [place] [address] [address] Feb, Forgetfulness R68.89 [place] [address] [place] [id number] [place] [address] Jan, [place] [address] [address] Jan, Gastroesophageal reflux dise ase without esophagitis K21.9 ; Fatigue, unspecified type R53.83 ; Weakness R53.1 ; Forgetfulness R68.89 ; Hyperlipidemia, unspecified hyperlipidemia E78.5 and Hearing abnormally acute, unspecified laterality H93.239 [place] [address] [address] Oct, [place] [address] [address] Aug, Upper respiratory tract infe ction, unspecified type J06.9 [place] [address] [address] Aug, [place] [address] [place] [id number] [place] [address] Jun, Acute idiopathic gout, unspe cified site M10.00 ; Encounter for immunization Z23 ; Hyperlipidemia, unspecified hyperlipidemia E78.5 ; Gastroesophageal reflux disease without esophagitis K21.9 and Fatigue, unspecified type R53.83 [place] [address] [place] [id number] [address] [place] [address] 17 Jan, 2015 Esophageal reflux 530.81 and Irritable bowel syndrome 564.1 [place] [address] [place] [id number] [address] [place] [address] 15 Jan, 2015 [place] [address] [place] [id number] [place] [address] Jan, Gastritis 535.50 ; Hx of col onic polyp V12.72 and Positional vertigo 386.11 [facility] [address] [facility] [id number] [address] [place] [address] Jan, [facility] [address] [facility] [id number] [address] [place] [address] Jan, Dizziness 780.4 and Nausea & vomiting 787.01 [facility] [address] [facility] [id number] [address] [place] [address] Nov, [facility] [address] [id number] [address] [place] [address] Nov, [facility] [address] [facility] [id number] [address] [place] [address] Nov, [facility] [address] [facility] [id number] [address] [place] [address] Nov, [facility] [address] [facility] [id number] [address] [place] [address] Oct, [facility] [address] [facility] [id number] [address] [place] [address] Oct, [facility] [address] [facility] [id number] [address] [place] [address] Oct, [facility] [address] [facility] [id number] [address] [place] [address] Aug, [facility] [address] [facility] [id number] [address] [place] [address] Aug, [facility] [address] [facility] [id number] [address] [place] [address] Aug, [facility] [address] [facility] [id number] [address] [place] [address] Jul, [facility] [address] [facility] [id number] [address] [place] [address] Jul, [facility] [address] [facility] [id number] [address] [place] [address] Jul, [facility] [address] [id number] [address] [place] [address], [place] [address] Jul, [facility] [address] [id number] [address] [place] [address], [place] [address] Jul, [facility] [address] [id number] [address] [place] [address], [place] [address] Jul, [facility] [address] [id number] [address] [place] [address], [place] [address] Jul, [facility] [address] [id number] [address] [place] [address], [place] [address] Jul, [facility] [address] [id number] [address] [place] [address], [place] [address] Jul, [facility] [address] [id number] [address] [place] [address], [place] [address] Jul, [facility] [address] [id number] [address] [place] [address], [place] [address] Jul, [facility] [address] [id number] [address] [place] [address], [place] [address] Jun, [facility] [address] [id number] [address] [place] [address], [place] [address] 14 Jun, 2014 [facility] [address] [id number] [address] [place] [address], [place] [address] Jun, [facility] [address] [id number] [address] [place] [address], [place] [address] 10 Jun, 2014 [facility] [address] [id number] [address] [place] [address], [place] [address] 17 Apr, 2014 [facility] [address] [id number] [address] [place] [address], [place] [address] 17 Apr, 2014 [facility] [address] [id number] [address] [place] [address], [place] [address] 17 Apr, 2014 [facility] [address] [id number] [address] [place] [address], [place] [address] Apr, [facility] [address] [id number] [address] [place] [address], [place] [address] Feb, [facility] [address] [id number] [address] [place] [address], [place] [address] Feb, [facility] [address] [id number] [address] [place] [address], [place] [address] Feb, [facility] [address] [id number] [address] [place] [address], [place] [address] Feb, [facility] [address] [id number] [address] [place] [address], [place] [address] Jan, [facility] [address] [id number] [address] [place] [address], [place] [address] Jan, [facility] [address] [id number] [address] [place] [address], [place] [address] Jan, [facility] [address] [id number] [address] [place] [address], [place] [address] Jan, [facility] [address] [id number] [address] [place] [address], [place] [address] December, [facility] [address] [id number] [address] [place] [address], [place] [address] December, [facility] [address] [id number] [address] [place] [address], [place] [address] December, [facility] [address] [id number] [address] [place] [address], [place] [address] December, [facility] [address] [id number] [address] [place] [address], [place] [address] December, [facility] [address] [id number] [address] [place] [address], [place] [address] December, [facility] [address] [id number] [address] [place] [address], [place] [address] Oct, [facility] [address] [id number] [address] [place] [address], [place] [address] Oct, [facility] [address] [id number] [address] [place] [address], [place] [address] Sep, [facility] [address] [id number] [address] [place] [address], [place] [address] Sep, [facility] [address] [id number] [address] [place] [address], [place] [address] Aug, [facility] [address] [id number] [address] [place] [address], [place] [address] Aug, [facility] [address] [id number] [address] [place] [address], [place] [address] Jul, [facility] [address] [id number] [address] [place] [address], [place] [address] Jul, [facility] [address] [id number] [address] [place] [address], [place] [address] May, [facility] [address] [id number] [address] [place] [address], [place] [address] May, [facility] [address] [id number] [address] [place] [address] May, [facility] [address] [id number] [address] [place] [address], [place] [address] Apr, [facility] [address] [id number] [address] [place] [address] Feb, [facility] [address] [id number] [address] [place] [address], [place] [address] Feb, [facility] [address] [id number] [address] [place] [address], [place] [address] Feb, [facility] [address] [id number] [address] [place] [address], [place] [address] Feb, [facility] [address] [id number] [address] [place] [address] Jan, [facility] [address] [id number] [address] [place] [address], [place] [address] Jan, [facility] [address] [id number] [address] [place] [address], [place] [address] December, [facility] [address] [id number] [address] [place] [address], [place] [address] Nov, [facility] [address] [id number] [address] [place] [address], [place] [address] Nov, [facility] [address] [id number] [address] [place] [address], [place] [address] Oct, [facility] [address] [id number] [address] [place] [address], [place] [address] Oct, [facility] [address] [id number] [address] [place] [address], [place] [address] Oct, [facility] [address] [id number] [address] [place] [address], [place] [address] Aug, [facility] [address] [id number] [address] [place] [address], [place] [address] Aug, [facility] [address] [id number] [address] [place] [address], [place] [address] Jul, [facility] [address] [id number] [address] [place] [address], [place] [address] Jul, [facility] [address] [id number] [address] [place] [address], [place] [address] Jul, [facility] [address] [id number] [address] [place] [address], [place] [address] Jul, [facility] [address] [id number] [address] [place] [address], [place] [address] Jun, [facility] [address] [id number] [address] [place] [address], [place] [address] Jun, [facility] [address] [id number] [address] [place] [address], [place] [address] May, [facility] [address] [id number] [address] [place] [address], [place] [address] Mar, [facility] [address] [id number] [address] [place] [address], [place] [address] Mar, [facility] [address] [id number] [address] [place] [address], [place] [address] Jan, [facility] [address] [id number] [address] [place] [address], [place] [address] Jan, [facility] [address] [id number] [address] [place] [address], [place] [address] December, [facility] [address] [id number] [address] [place] [address], [place] [address] December, [facility] [address] [id number] [address] [place] [address], [place] [address] December, [facility] [address] [id number] [address] [place] [address], [place] [address] December, [facility] [address] [id number] [address] [place] [address], [place] [address] Sep, [facility] [address] [id number] [address] [place] [address], [place] [address] Sep, [facility] [address] [id number] [address] [place] [address], [place] [address] Jun, [facility] [address] [id number] [address] [place] [address], [place] [address] 14 Jun, 2011 [facility] [address] [id number] [address] [place] [address], [place] [address] 18 May, 2011 [facility] [address] [id number] [address] [place] [address], [place] [address] Feb, [facility] [address] [id number] [address] [place] [address], [place] [address] 10 Mar, 2010 [facility] [address] [id number] [address] [place] [address] Nov, [facility] [address] [id number] [address] [place] [address] Sep, [facility] [address] [id number] [address] [place] [address] Jun, [facility] [address] [id number] [address] [place] [address] Jun, [facility] [address] [id number] [address] [place] [address] May, [facility] [address] [facility] [id number] [address] [place] [address] Mar, [facility] [address] [facility] [id number] [address] [place] [address] December, IMMUNIZATIONS No Known Immunizations SOCIAL HISTORY Never Assessed REASON FOR VISIT PLAN OF CARE VITAL SIGNS Height 64 in 2014-07-08 Weight 150.12 lbs 2014-07-08 Temperature 98 degrees Fahrenheit 2014-07-08 Heart Rate 72 bpm 2014-07-08 Respiratory Rate 18 2014-07-08 Blood pressure systolic 136 mmHg 2014-07-08 Blood pressure diastolic 74 mmHg 2014-07-08 MEDICATIONS Unknown Medications RESULTS No Results PROCEDURES Procedure Date Ordered Result Body Site X-RAY EXAM OF SHOULDER Jul 08, 2014 INSTRUCTIONS MEDICATIONS ADMINISTERED No Known Medications MEDICAL [...]
--- OUTSIDE RECORDS SUMMARY | 2020-02-28 02:32 | XMS REPORT ---
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 Active 112361518 Problem Essential hypertension I10 Active 32232966 Problem Stage 3 chronic kidney disease N18.3 Active 695506559 Problem Memory loss R41.3 Active 31544535 Problem Primary insomnia F51.01 Active 397 2004 Problem Nocturnal hypoxia G47.34 Active 38 8212347 Problem Hyperlipidemia, unspecified hyperlipidemia E78.5 Active 02430671 Problem Gastroesophageal reflux disease without esophagitis K21.9 Active 051734033 Problem Anxiety F41.9 Active 46109743 Problem Other chronic gastritis without hemorrhage K29.50 Active 8735071 ALLERGIES No Information ENCOUNTERS Encounter Location Date Diagnosis [place] [id number] [facility] [id number] [address] [place] [address] Nov, [facility] [address] [facility] [id number] [address] [place] [address] Oct, [place] [address] [address] [facility] [id number] [address] [place] [address] Oct, [place] [address] [address] [place] [id number] [address] [place] [address] Oct, CN palsy, left eye H49.22 ; Primary insomnia F51.01 ; Pulsatile tinnitus of left ear H93.A2 and Seborrheic keratosis L82.1 [facility] [address] [place] [id number] [address] [place] [address] Aug, CN palsy, left eye H49.22 ; Essential hypertension I10 ; Arthralgia, unspecified joint M25.50 and Primary insomnia F51.01 [facility] [address] [place] [id number] [place] [address] Jul, Cranial nerve palsy G52.9 [facility] [address] [place] [id number] [place] [address] Jul, Cranial nerve palsy G52.9 ; Stage 3 chronic kidney disease N18.3 ; Family history of embolic stroke Z82.3 and Numbness of left hand R20.0 [place] [address] [place] [id number] [place] [address] Jun, Anxiety F41.9 and Essential hypertension I10 [place] [address] [address] Jun, [facility] [address] [place] [id number] [place] [address] Jun, Essential hypertension I10 [place] [address] [address] May, [facility] [address] [place] [id number] [place] [address] May, Herpes zoster without compli cation B02.9 and Stage 3 chronic kidney disease N18.3 [facility] [address] [place] [id number] [address] [place] [address] Mar, Essential hypertension I10 [facility] [address] [place] [id number] [place] [address] Feb, [facility] [address] [place] [id number] [address] [place] [address] Feb, [facility] [address] [address] Feb, Essential hypertension I10 a nd Acute midline low back pain without sciatica M54.5 [facility] [address] [address] December, Insect bite (nonvenomous) of lower back and pelvis, initial encounter S30.860A and Bitten or stung by nonvenomous insect and other nonvenomous arthropods, initial encounter W57.XXXA [facility] [address] [address] Nov, Pleurisy R09.1 [place] [address] [address] Nov, [facility] [address] [address] Oct, Hypoxemia R09.02 and Fatigue , unspecified type R53.83 [place] [address] [address] 12 Sep, 2017 Other chronic gastritis with out hemorrhage K29.50 ; Gastroesophageal reflux disease without esophagitis K21.9 ; Hyperlipidemia, unspecified hyperlipidemia E78.5 and Arthralgia, unspecified joint M25.50 [facility] [address] [address] Aug, Hypertriglyceridemia E78.1 [place] [address] [address] 02 May, 2017 Anxiety F41.9 [place] [address] [address] 21 Apr, 2017 Hyperlipidemia, unspecified hyperlipidemia E78.5 ; Gastroesophageal reflux disease without esophagitis K21.9 ; Forgetfulness R68.89 ; Essential hypertension I10 and Anxiety F41.9 [place] [address] [address] 14 Apr, 2017 Hypertriglyceridemia E78.1 [place] [address] [place] [address] Mar, Medicare annual wellness vis it, subsequent Z00.00 ; Hyperlipidemia, unspecified hyperlipidemia E78.5 and Essential hypertension I10 [place] [address] [address] Mar, Forgetfulness R68.89 ; Fatig ue, unspecified type R53.83 and Essential hypertension I10 [place] [address] [address] Mar, Primary osteoarthritis, 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 and Strain of left trapezius muscle, initial encounter S46.812A [place] 786592[address] Feb, Left wrist pain M25.532 [place] [address] [address] 07 Feb, 2017 Left wrist pain M25.532 [place] [address] [address] December, Hypertriglyceridemia E78.1 ; Encounter for immunization Z23 ; Forgetfulness R68.89 and Fatigue, unspecified type R53.83 [place] [address] [address] Jun, Forgetfulness R68.89 and Rhi nitis, unspecified type J31.0 [place] [address] [address] May, [address] [address] May, Hypoxemia R09.02 ; Memory lo ss R41.3 ; Arthralgia, unspecified joint M25.50 and Rhinitis, unspecified type J31.0 [place] [address] [place] [id number] [address] [place] [address] Mar, Vertigo R42 ; Orthostatic hy potension I95.1 and Chronic gastritis without bleeding, unspecified gastritis type K29.50 [place] [address] [facility] [id number] [address] [place] [address] Feb, [place] [address] [address] Feb, Forgetfulness R68.89 [place] [address] [place] [id number] [place] [address] Jan, [place] [address] [address] Jan, Gastroesophageal reflux dise ase without esophagitis K21.9 ; Fatigue, unspecified type R53.83 ; Weakness R53.1 ; Forgetfulness R68.89 ; Hyperlipidemia, unspecified hyperlipidemia E78.5 and Hearing abnormally acute, unspecified laterality H93.239 [place] [address] [address] Oct, [place] [address] [address] Aug, Upper respiratory tract infe ction, unspecified type J06.9 [place] [address] [address] Aug, [place] [address] [place] [id number] [place] [address] Jun, Acute idiopathic gout, unspe cified site M10.00 ; Encounter for immunization Z23 ; Hyperlipidemia, unspecified hyperlipidemia E78.5 ; Gastroesophageal reflux disease without esophagitis K21.9 and Fatigue, unspecified type R53.83 [place] [address] [place] [id number] [address] [place] [address] 17 Jan, 2015 Esophageal reflux 530.81 and Irritable bowel syndrome 564.1 [place] [address] [place] [id number] [address] [place] [address] 15 Jan, 2015 [place] [address] [place] [id number] [place] [address] Jan, Gastritis 535.50 ; Hx of col onic polyp V12.72 and Positional vertigo 386.11 [facility] [address] [facility] [id number] [address] [place] [address] Jan, [facility] [address] [facility] [id number] [address] [place] [address] Jan, Dizziness 780.4 and Nausea & vomiting 787.01 [facility] [address] [facility] [id number] [address] [place] [address] Nov, [facility] [address] [id number] [address] [place] [address] Nov, [facility] [address] [facility] [id number] [address] [place] [address] Nov, [facility] [address] [facility] [id number] [address] [place] [address] Nov, [facility] [address] [facility] [id number] [address] [place] [address] Oct, [facility] [address] [facility] [id number] [address] [place] [address] Oct, [facility] [address] [facility] [id number] [address] [place] [address] Oct, [facility] [address] [facility] [id number] [address] [place] [address] Aug, [facility] [address] [facility] [id number] [address] [place] [address] Aug, [facility] [address] [facility] [id number] [address] [place] [address] Aug, [facility] [address] [facility] [id number] [address] [place] [address] Jul, [facility] [address] [facility] [id number] [address] [place] [address] Jul, [facility] [address] [facility] [id number] [address] [place] [address] Jul, [facility] [address] [id number] [address] [place] [address], [place] [address] Jul, [facility] [address] [id number] [address] [place] [address], [place] [address] Jul, [facility] [address] [id number] [address] [place] [address], [place] [address] Jul, [facility] [address] [id number] [address] [place] [address], [place] [address] Jul, [facility] [address] [id number] [address] [place] [address], [place] [address] Jul, [facility] [address] [id number] [address] [place] [address], [place] [address] Jul, [facility] [address] [id number] [address] [place] [address], [place] [address] Jul, [facility] [address] [id number] [address] [place] [address], [place] [address] Jul, [facility] [address] [id number] [address] [place] [address], [place] [address] Jun, [facility] [address] [id number] [address] [place] [address], [place] [address] 14 Jun, 2014 [facility] [address] [id number] [address] [place] [address], [place] [address] Jun, [facility] [address] [id number] [address] [place] [address], [place] [address] 10 Jun, 2014 [facility] [address] [id number] [address] [place] [address], [place] [address] 17 Apr, 2014 [facility] [address] [id number] [address] [place] [address], [place] [address] 17 Apr, 2014 [facility] [address] [id number] [address] [place] [address], [place] [address] 17 Apr, 2014 [facility] [address] [id number] [address] [place] [address], [place] [address] Apr, [facility] [address] [id number] [address] [place] [address], [place] [address] Feb, [facility] [address] [id number] [address] [place] [address], [place] [address] Feb, [facility] [address] [id number] [address] [place] [address], [place] [address] Feb, [facility] [address] [id number] [address] [place] [address], [place] [address] Feb, [facility] [address] [id number] [address] [place] [address], [place] [address] Jan, [facility] [address] [id number] [address] [place] [address], [place] [address] Jan, [facility] [address] [id number] [address] [place] [address], [place] [address] Jan, [facility] [address] [id number] [address] [place] [address], [place] [address] Jan, [facility] [address] [id number] [address] [place] [address], [place] [address] December, [facility] [address] [id number] [address] [place] [address], [place] [address] December, [facility] [address] [id number] [address] [place] [address], [place] [address] December, [facility] [address] [id number] [address] [place] [address], [place] [address] December, [facility] [address] [id number] [address] [place] [address], [place] [address] December, [facility] [address] [id number] [address] [place] [address], [place] [address] December, [facility] [address] [id number] [address] [place] [address], [place] [address] Oct, [facility] [address] [id number] [address] [place] [address], [place] [address] Oct, [facility] [address] [id number] [address] [place] [address], [place] [address] Sep, [facility] [address] [id number] [address] [place] [address], [place] [address] Sep, [facility] [address] [id number] [address] [place] [address], [place] [address] Aug, [facility] [address] [id number] [address] [place] [address], [place] [address] Aug, [facility] [address] [id number] [address] [place] [address], [place] [address] Jul, [facility] [address] [id number] [address] [place] [address], [place] [address] Jul, [facility] [address] [id number] [address] [place] [address], [place] [address] May, [facility] [address] [id number] [address] [place] [address], [place] [address] May, [facility] [address] [id number] [address] [place] [address] May, [facility] [address] [id number] [address] [place] [address], [place] [address] Apr, [facility] [address] [id number] [address] [place] [address] Feb, [facility] [address] [id number] [address] [place] [address], [place] [address] Feb, [facility] [address] [id number] [address] [place] [address], [place] [address] Feb, [facility] [address] [id number] [address] [place] [address], [place] [address] Feb, [facility] [address] [id number] [address] [place] [address] Jan, [facility] [address] [id number] [address] [place] [address], [place] [address] Jan, [facility] [address] [id number] [address] [place] [address], [place] [address] December, [facility] [address] [id number] [address] [place] [address], [place] [address] Nov, [facility] [address] [id number] [address] [place] [address], [place] [address] Nov, [facility] [address] [id number] [address] [place] [address], [place] [address] Oct, [facility] [address] [id number] [address] [place] [address], [place] [address] Oct, [facility] [address] [id number] [address] [place] [address], [place] [address] Oct, [facility] [address] [id number] [address] [place] [address], [place] [address] Aug, [facility] [address] [id number] [address] [place] [address], [place] [address] Aug, [facility] [address] [id number] [address] [place] [address], [place] [address] Jul, [facility] [address] [id number] [address] [place] [address], [place] [address] Jul, [facility] [address] [id number] [address] [place] [address], [place] [address] Jul, [facility] [address] [id number] [address] [place] [address], [place] [address] Jul, [facility] [address] [id number] [address] [place] [address], [place] [address] Jun, [facility] [address] [id number] [address] [place] [address], [place] [address] Jun, [facility] [address] [id number] [address] [place] [address], [place] [address] May, [facility] [address] [id number] [address] [place] [address], [place] [address] Mar, [facility] [address] [id number] [address] [place] [address], [place] [address] Mar, [facility] [address] [id number] [address] [place] [address], [place] [address] Jan, [facility] [address] [id number] [address] [place] [address], [place] [address] Jan, [facility] [address] [id number] [address] [place] [address], [place] [address] December, [facility] [address] [id number] [address] [place] [address], [place] [address] December, [facility] [address] [id number] [address] [place] [address], [place] [address] December, [facility] [address] [id number] [address] [place] [address], [place] [address] December, [facility] [address] [id number] [address] [place] [address], [place] [address] Sep, [facility] [address] [id number] [address] [place] [address], [place] [address] Sep, [facility] [address] [id number] [address] [place] [address], [place] [address] Jun, [facility] [address] [id number] [address] [place] [address], [place] [address] 14 Jun, 2011 [facility] [address] [id number] [address] [place] [address], [place] [address] 18 May, 2011 [facility] [address] [id number] [address] [place] [address], [place] [address] Feb, [facility] [address] [id number] [address] [place] [address], [place] [address] Mar, [facility] [address] [facility] [id number] [address] [place] [address] Nov, [facility] [address] [facility] [id number] [address] [place] [address] Sep, [facility] [address] [facility] [id number] [address] [place] [address] Jun, [facility] [address] [facility] [id number] [address] [place] [address] Jun, [facility] [address] [facility] [id number] [address] [place] [address] May, [facility] [address] [facility] [id number] [address] [place] [address] Mar, [facility] [address] [facility] [id number] [address] [place] [address] December, IMMUNIZATIONS No Known Immunizations SOCIAL HISTORY [...]
--- OUTSIDE RECORDS SUMMARY | 2020-02-28 02:32 | XMS REPORT ---
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 Active 743231187 Problem Essential hypertension I10 Active 12298504 Problem Stage 3 chronic kidney disease N18.3 Active 132338184 Problem Memory loss R41.3 Active 50608994 Problem Primary insomnia F51.01 Active 397 2004 Problem Nocturnal hypoxia G47.34 Active 38 3198938 Problem Hyperlipidemia, unspecified hyperlipidemia E78.5 Active 63984838 Problem Gastroesophageal reflux disease without esophagitis K21.9 Active 401267361 Problem Anxiety F41.9 Active 05728499 Problem Other chronic gastritis without hemorrhage K29.50 Active 0112287 ALLERGIES No Information ENCOUNTERS Encounter Location Date Diagnosis [place] [id number] [facility] [id number] [address] [place] [address] Nov, [facility] [address] [facility] [id number] [address] [place] [address] Oct, [place] [address] [facility] [id number] [address] [place] [address] Oct, [place] [address] [facility] [id number] [address] [place] [address] Oct, CN palsy, left eye H49.22 ; Primary insomnia F51.01 ; Pulsatile tinnitus of left ear H93.A2 and Seborrheic keratosis L82.1 [facility] [address] [place] [id number] [address] [place] [address] Aug, CN palsy, left eye H49.22 ; Essential hypertension I10 ; Arthralgia, unspecified joint M25.50 and Primary insomnia F51.01 [facility] [address] [place] [id number] [place] [address] Jul, Cranial nerve palsy G52.9 [facility] [address] [place] [id number] [place] [address] Jul, Cranial nerve palsy G52.9 ; Stage 3 chronic kidney disease N18.3 ; Family history of embolic stroke Z82.3 and Numbness of left hand R20.0 [place] [address] [place] [id number] [place] [address] Jun, Anxiety F41.9 and Essential hypertension I10 [place] [address] [address] Jun, [facility] [address] [place] [id number] [place] [address] Jun, Essential hypertension I10 [place] [address] [address] May, [facility] [address] [place] [id number] [place] [address] May, Herpes zoster without compli cation B02.9 and Stage 3 chronic kidney disease N18.3 [facility] [address] [place] [id number] [address] [place] [address] Mar, Essential hypertension I10 [facility] [address] [place] [id number] [place] [address] Feb, [facility] [address] [place] [id number] [address] [place] [address] Feb, [facility] [address] [address] Feb, Essential hypertension I10 a nd Acute midline low back pain without sciatica M54.5 [facility] [address] [address] December, Insect bite (nonvenomous) of lower back and pelvis, initial encounter S30.860A and Bitten or stung by nonvenomous insect and other nonvenomous arthropods, initial encounter W57.XXXA [facility] [address] [address] Nov, Pleurisy R09.1 [place] [address] [address] Nov, [facility] [address] [address] Oct, Hypoxemia R09.02 and Fatigue , unspecified type R53.83 [place] [address] [address] 12 Sep, 2017 Other chronic gastritis with out hemorrhage K29.50 ; Gastroesophageal reflux disease without esophagitis K21.9 ; Hyperlipidemia, unspecified hyperlipidemia E78.5 and Arthralgia, unspecified joint M25.50 [facility] [address] [address] Aug, Hypertriglyceridemia E78.1 [place] [address] [address] 02 May, 2017 Anxiety F41.9 [place] [address] [address] 21 Apr, 2017 Hyperlipidemia, unspecified hyperlipidemia E78.5 ; Gastroesophageal reflux disease without esophagitis K21.9 ; Forgetfulness R68.89 ; Essential hypertension I10 and Anxiety F41.9 [place] [address] [address] 14 Apr, 2017 Hypertriglyceridemia E78.1 [place] [address] [place] [address] Mar, Medicare annual wellness vis it, subsequent Z00.00 ; Hyperlipidemia, unspecified hyperlipidemia E78.5 and Essential hypertension I10 [place] [address] [address] Mar, Forgetfulness R68.89 ; Fatig ue, unspecified type R53.83 and Essential hypertension I10 [place] [address] [address] Mar, Primary osteoarthritis, 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 and Strain of left trapezius muscle, initial encounter S46.812A [place] 9[address]662[address] Feb, Left wrist pain M25.532 [place] [address] [address] 07 Feb, 2017 Left wrist pain M25.532 [place] [address] [address] December, Hypertriglyceridemia E78.1 ; Encounter for immunization Z23 ; Forgetfulness R68.89 and Fatigue, unspecified type R53.83 [place] [address] [address] Jun, Forgetfulness R68.89 and Rhi nitis, unspecified type J31.0 [place] [address] [address] May, [address] [address] May, Hypoxemia R09.02 ; Memory lo ss R41.3 ; Arthralgia, unspecified joint M25.50 and Rhinitis, unspecified type J31.0 [place] [address] [place] [id number] [place] [address] Mar, Vertigo R42 ; Orthostatic hy potension I95.1 and Chronic gastritis without bleeding, unspecified gastritis type K29.50 [place] [address] [facility] [id number] [address] [place] [address] Feb, [place] [address] [address] Feb, Forgetfulness R68.89 [place] [address] [place] [id number] [place] [address] Jan, [place] [address] [address] Jan, Gastroesophageal reflux dise ase without esophagitis K21.9 ; Fatigue, unspecified type R53.83 ; Weakness R53.1 ; Forgetfulness R68.89 ; Hyperlipidemia, unspecified hyperlipidemia E78.5 and Hearing abnormally acute, unspecified laterality H93.239 [place] [address] [address] Oct, [place] [address] [address] Aug, Upper respiratory tract infe ction, unspecified type J06.9 [place] [address] [address] Aug, [place] [address] [place] [id number] [place] [address] Jun, Acute idiopathic gout, unspe cified site M10.00 ; Encounter for immunization Z23 ; Hyperlipidemia, unspecified hyperlipidemia E78.5 ; Gastroesophageal reflux disease without esophagitis K21.9 and Fatigue, unspecified type R53.83 [place] [address] [place] [id number] [address] [place] [address] 17 Jan, 2015 Esophageal reflux 530.81 and Irritable bowel syndrome 564.1 [place] [address] [place] [id number] [address] [place] [address] 15 Jan, 2015 [place] [address] [place] [id number] [place] [address] Jan, Gastritis 535.50 ; Hx of col onic polyp V12.72 and Positional vertigo 386.11 [facility] [address] [facility] [id number] [address] [place] [address] Jan, [facility] [address] [facility] [id number] [address] [place] [address] Jan, Dizziness 780.4 and Nausea & vomiting 787.01 [facility] [address] [facility] [id number] [address] [place] [address] Nov, [facility] [address] [id number] [address] [place] [address] Nov, [facility] [address] [facility] [id number] [address] [place] [address] Nov, [facility] [address] [facility] [id number] [address] [place] [address] Nov, [facility] [address] [facility] [id number] [address] [place] [address] Oct, [facility] [address] [facility] [id number] [address] [place] [address] Oct, [facility] [address] [facility] [id number] [address] [place] [address] Oct, [facility] [address] [facility] [id number] [address] [place] [address] Aug, [facility] [address] [facility] [id number] [address] [place] [address] Aug, [facility] [address] [facility] [id number] [address] [place] [address] Aug, [facility] [address] [facility] [id number] [address] [place] [address] Jul, [facility] [address] [facility] [id number] [address] [place] [address] Jul, [facility] [address] [facility] [id number] [address] [place] [address] Jul, [facility] [address] [id number] [address] [place] [address], [place] [address] Jul, [facility] [address] [id number] [address] [place] [address], [place] [address] Jul, [facility] [address] [id number] [address] [place] [address], [place] [address] Jul, [facility] [address] [id number] [address] [place] [address], [place] [address] Jul, [facility] [address] [id number] [address] [place] [address], [place] [address] Jul, [facility] [address] [id number] [address] [place] [address], [place] [address] Jul, [facility] [address] [id number] [address] [place] [address], [place] [address] Jul, [facility] [address] [id number] [address] [place] [address], [place] [address] Jul, [facility] [address] [id number] [address] [place] [address], [place] [address] Jun, [facility] [address] [id number] [address] [place] [address], [place] [address] 14 Jun, 2014 [facility] [address] [id number] [address] [place] [address], [place] [address] Jun, [facility] [address] [id number] [address] [place] [address], [place] [address] 10 Jun, 2014 [facility] [address] [id number] [address] [place] [address], [place] [address] 17 Apr, 2014 [facility] [address] [id number] [address] [place] [address], [place] [address] 17 Apr, 2014 [facility] [address] [id number] [address] [place] [address], [place] [address] 17 Apr, 2014 [facility] [address] [id number] [address] [place] [address], [place] [address] Apr, [facility] [address] [id number] [address] [place] [address], [place] [address] Feb, [facility] [address] [id number] [address] [place] [address], [place] [address] Feb, [facility] [address] [id number] [address] [place] [address], [place] [address] Feb, [facility] [address] [id number] [address] [place] [address], [place] [address] Feb, [facility] [address] [id number] [address] [place] [address], [place] [address] Jan, [facility] [address] [id number] [address] [place] [address], [place] [address] Jan, [facility] [address] [id number] [address] [place] [address], [place] [address] Jan, [facility] [address] [id number] [address] [place] [address], [place] [address] Jan, [facility] [address] [id number] [address] [place] [address], [place] [address] December, [facility] [address] [id number] [address] [place] [address], [place] [address] December, [facility] [address] [id number] [address] [place] [address], [place] [address] December, [facility] [address] [id number] [address] [place] [address], [place] [address] December, [facility] [address] [id number] [address] [place] [address], [place] [address] December, [facility] [address] [id number] [address] [place] [address], [place] [address] December, [facility] [address] [id number] [address] [place] [address], [place] [address] Oct, [facility] [address] [id number] [address] [place] [address], [place] [address] Oct, [facility] [address] [id number] [address] [place] [address], [place] [address] Sep, [facility] [address] [id number] [address] [place] [address], [place] [address] Sep, [facility] [address] [id number] [address] [place] [address], [place] [address] Aug, [facility] [address] [id number] [address] [place] [address], [place] [address] Aug, [facility] [address] [id number] [address] [place] [address], [place] [address] Jul, [facility] [address] [id number] [address] [place] [address], [place] [address] Jul, [facility] [address] [id number] [address] [place] [address], [place] [address] May, [facility] [address] [id number] [address] [place] [address], [place] [address] May, [facility] [address] [id number] [address] [place] [address] May, [facility] [address] [id number] [address] [place] [address], [place] [address] Apr, [facility] [address] [id number] [address] [place] [address] Feb, [facility] [address] [id number] [address] [place] [address], [place] [address] Feb, [facility] [address] [id number] [address] [place] [address], [place] [address] Feb, [facility] [address] [id number] [address] [place] [address], [place] [address] Feb, [facility] [address] [id number] [address] [place] [address] Jan, [facility] [address] [id number] [address] [place] [address], [place] [address] Jan, [facility] [address] [id number] [address] [place] [address], [place] [address] December, [facility] [address] [id number] [address] [place] [address], [place] [address] Nov, [facility] [address] [id number] [address] [place] [address], [place] [address] Nov, [facility] [address] [id number] [address] [place] [address], [place] [address] Oct, [facility] [address] [id number] [address] [place] [address], [place] [address] Oct, [facility] [address] [id number] [address] [place] [address], [place] [address] Oct, [facility] [address] [id number] [address] [place] [address], [place] [address] Aug, [facility] [address] [id number] [address] [place] [address], [place] [address] Aug, [facility] [address] [id number] [address] [place] [address], [place] [address] Jul, [facility] [address] [id number] [address] [place] [address], [place] [address] Jul, [facility] [address] [id number] [address] [place] [address], [place] [address] Jul, [facility] [address] [id number] [address] [place] [address], [place] [address] Jul, [facility] [address] [id number] [address] [place] [address], [place] [address] Jun, [facility] [address] [id number] [address] [place] [address], [place] [address] Jun, [facility] [address] [id number] [address] [place] [address], [place] [address] May, [facility] [address] [id number] [address] [place] [address], [place] [address] Mar, [facility] [address] [id number] [address] [place] [address], [place] [address] Mar, [facility] [address] [id number] [address] [place] [address], [place] [address] Jan, [facility] [address] [id number] [address] [place] [address], [place] [address] Jan, [facility] [address] [id number] [address] [place] [address], [place] [address] December, [facility] [address] [id number] [address] [place] [address], [place] [address] December, [facility] [address] [id number] [address] [place] [address], [place] [address] December, [facility] [address] [id number] [address] [place] [address], [place] [address] December, [facility] [address] [id number] [address] [place] [address], [place] [address] Sep, [facility] [address] [id number] [address] [place] [address], [place] [address] Sep, [facility] [address] [id number] [address] [place] [address], [place] [address] Jun, [facility] [address] [id number] [address] [place] [address], [place] [address] 14 Jun, 2011 [facility] [address] [id number] [address] [place] [address], [place] [address] 18 May, 2011 [facility] [address] [id number] [address] [place] [address], [place] [address] Feb, [facility] [address] [id number] [address] [place] [address], [place] [address] Mar, [facility] [address] [facility] [id number] [address] [place] [address] Nov, [facility] [address] [facility] [id number] [address] [place] [address] Sep, [facility] [address] [facility] [id number] [address] [place] [address] Jun, [facility] [address] [facility] [id number] [address] [place] [address] Jun, [facility] [address] [facility] [id number] [address] [place] [address] May, [facility] [address] [facility] [id number] [address] [place] [address] Mar, [facility] [address] [facility] [id number] [address] [place] [address] December, IMMUNIZATIONS No Known Immunizations SOCIAL HISTORY [...]
--- OUTSIDE RECORDS SUMMARY | 2020-02-28 02:33 | XMS REPORT ---
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 Active 208623985 Problem Essential hypertension I10 Active 09327196 Problem Stage 3 chronic kidney disease N18.3 Active 497027714 Problem Memory loss R41.3 Active 87597869 Problem Primary insomnia F51.01 Active 397 2004 Problem Nocturnal hypoxia G47.34 Active 38 5634924 Problem Hyperlipidemia, unspecified hyperlipidemia E78.5 Active 28636519 Problem Gastroesophageal reflux disease without esophagitis K21.9 Active 490126376 Problem Anxiety F41.9 Active 73755029 Problem Other chronic gastritis without hemorrhage K29.50 Active 0330163 ALLERGIES No Information ENCOUNTERS Encounter Location Date Diagnosis [place] [address] [address] Nov, [facility] [address] [address] Oct, [place] [address] [address] Oct, [place] [address] [address] Oct, CN palsy, left eye H49.22 ; Primary i nsomnia F51.01 ; Pulsatile tinnitus of left ear H93.A2 and Seborrheic keratosis L82.1 [place] [address] [address] Aug, CN palsy, left eye H49.22 ; Essential hypertension I10 ; Arthralgia, unspecified joint M25.50 and Primary insomnia F51.01 [place] [address] [address] Jul, Cranial nerve palsy G52.9 [place] [address] [address] Jul, Cranial nerve palsy G52.9 ; Stage 3 snipper melvina kidney disease N18.3 ; Family history of embolic stroke Z82.3 and Numbness of left hand R20.0 [place] [address] [address] Jun, Anxiety F41.9 and Essential hypertension I10 [place] [address] [address] Jun, [place] [address] [address] Jun, Essential hypertension I10 [place] [address] [address] May, [place] [address] [address] May, Herpes zoster without complication B02.9 and Stage 3 chronic kidney disease N18.3 [place] [address] [address] Mar, Essential hypertension I10 [place] [address] [address] Feb, [place] [address] [address] Feb, [place] [address] [address] Feb, Essential hypertension I10 and Acute mid line low back pain without sciatica M54.5 [facility] [address] [facility] [id number] [place] [address] December, Insect bite (nonvenomous) of lower back and pelvis, initial encounter S30.860A and Bitten or stung by nonvenomous insect and other nonvenomous arthropods, initial encounter W57.XXXA [place] [address] [address] Nov, Pleurisy R09.1 [place] [address] [address] Nov, [place] [address] [address] Oct, Hypoxemia R09.02 and Fatigue, unspecifie d type R53.83 [place] [address] [address] Sep, Other chronic gastritis without hemorrha ge K29.50 ; Gastroesophageal reflux disease without esophagitis K21.9 ; Hyperlipidemia, unspecified hyperlipidemia E78.5 and Arthralgia, unspecified joint M25.50 [place] [address] [address] Aug, Hypertriglyceridemia E78.1 [place] [address] [address] May, Anxiety F41.9 [place] [address] [address] Apr, Hyperlipidemia, unspecified hyperlipidem ia E78.5 ; Gastroesophageal reflux disease without esophagitis K21.9 ; Forgetfulness R68.89 ; Essential hypertension I10 and Anxiety F41.9 [place] [address] [address] 14 Apr, 2017 Hypertriglyceridemia E78.1 [place] [address] [address] Mar, Medicare annual wellness visit, subseque nt Z00.00 ; Hyperlipidemia, unspecified hyperlipidemia E78.5 and Essential hypertension I10 [place] [address] [address] Mar, Forgetfulness R68.89 ; Fatigue, unspecif ied type R53.83 and Essential hypertension I10 [place] [address] [address] Mar, Primary osteoarthritis, left wrist M19.0 32 and Strain of left trapezius muscle, initial encounter S46.812A [place] [address] [address] Feb, Left wrist pain M25.532 [place] [address] [address] Feb, Left wrist pain M25.532 [place] [address] [address] December, Hypertriglyceridemia E78.1 ; Encounter f or immunization Z23 ; Forgetfulness R68.89 and Fatigue, unspecified type R53.83 [place] [address] [address] Jun, Forgetfulness R68.89 and Rhinitis, unspe cified type J31.0 [place] [address] [address] May, [place] [address] [address] May, Hypoxemia R09.02 ; Memory loss R41.3 ; A rthralgia, unspecified joint M25.50 and Rhinitis, unspecified type J31.0 [place] [address] [address] Mar, Vertigo R42 ; Orthostatic hypotension I9 5.1 and Chronic gastritis without bleeding, unspecified gastritis type K29.50 [place] [address] [address] Feb, [place] [address] [address] Feb, Forgetfulness R68.89 [place] [address] [address] Jan, [address] [address] Jan, Gastroesophageal reflux disease without esophagitis K21.9 ; Fatigue, unspecified type R53.83 ; Weakness R53.1 ; Forgetfulness R68.89 ; Hyperlipidemia, unspecified hyperlipidemia E78.5 and Hearing abnormally acute, unspecified laterality H93.[address] [address] Oct, [address] [address] Aug, Upper respiratory tract infection, unspe cified type J06.[address] [address] Aug, [address] [address] Jun, Acute idiopathic gout, unspecified site M10.00 ; Encounter for immunization Z23 ; Hyperlipidemia, unspecified hyperlipidemia E78.5 ; Gastroesophageal reflux disease without esophagitis K21.9 and Fatigue, unspecified type R53.[address] [address] Jan, Esophageal reflux 530.81 and Irritable b owel syndrome 564.[address] [address] Jan, [address] [address] Jan, Gastritis 535.50 ; Hx of colonic polyp V 12.72 and Positional vertigo 386.[address] [address] Jan, [address] [address] 04 Jan, 2015 Dizziness 780.4 and Nausea & vomiting 78 7.01 [facility] [address] [id number] [place] [address] Nov, [facility] [address] [id number] [place] [address] 28 Nov, 2014 [facility] [address] [id number] [place] [address] 14 Nov, 2014 [facility] [address] [place] [id number] [place] [address] 13 Nov, 2014 [facility] [address] [id number] [place] [address] 16 Oct, 2014 [facility] [address] [place] [id number] [place] [address] Oct, [facility] [address] [id number] [place] [address] Oct, [facility] [address] [place] [id number] [place] [address] Aug, [facility] [address] [id number] [place] [address] Aug, [facility] [address] [place] [id number] [place] [address] Aug[facility] [address] [id number] [place] [address] Jul, [facility] [address] [place] [id number] [place] [address] Jul, [facility] [address] [id number] [place] [address] Jul, [facility] [address] [id number] [place] [address] Jul, [facility] [address] [id number] [place] [address] Jul, [facility] [address] [id number] [place] [address] 08 Jul, 2014 [facility] [address] [id number] [place] [address] Jul, [facility] [address] [facility] [id number] [place] [address] Jul, [facility] [address] [facility] [id number] [place] [address] Jul, [facility] [address] [id number] [place] [address] Jul, [facility] [address] [id number] [place] [address] Jul, [facility] [address] [id number] [place] [address] Jun, [facility] [address] [id number] [place] [address] Jun, [facility] [address] [id number] [place] [address] Jun, [facility] [address] [id number] [place] [address] Jun, [facility] [address] [id number] [place] [address] Apr, [facility] [address] [id number] [place] [address] Apr, [facility] [address] [id number] [place] [address] Apr, [facility] [address] [id number] [place] [address] Apr, [facility] [address] [id number] [place] [address] Feb, [facility] [address] [id number] [place] [address] Feb, [facility] [address] [id number] [place] [address] Feb, [facility] [address] [id number] [place] [address] Feb, [facility] [address] [id number] [place] [address] Jan, [facility] [address] [id number] [place] [address] Jan, [facility] [address] [id number] [place] [address] Jan, [facility] [address] [id number] [place] [address] Jan, [facility] [address] [id number] [place] [address] December, [facility] [address] [id number] [place] [address] December, [facility] [address] [id number] [place] [address] December, [facility] [address] [id number] [place] [address] December, [facility] [address] [id number] [place] [address] December, [facility] [address] [id number] [place] [address] December, [facility] [address] [id number] [place] [address] Oct, [facility] [address] [id number] [place] [address] Oct, [facility] [address] [id number] [place] [address] Sep, [facility] [address] [id number] [place] [address] Sep, [facility] [address] [id number] [place] [address] Aug, [facility] [address] [id number] [place] [address] Aug, [facility] [address] [id number] [place] [address] Jul, [facility] [address] [facility] [id number] [place] [address] Jul, [facility] [address] [facility] [id number] [place] [address] May, [facility] [address] [id number] [place] [address] May, [facility] [address] [id number] [place] [address] May, [facility] [address] [facility] [id number] [place] [address] Apr, [facility] [address] [id number] [place] [address] Feb, [facility] [address] [id number] [place] [address] Feb, [facility] [address] [id number] [place] [address] Feb, [facility] [address] [id number] [place] [address] Feb, [facility] [address] [id number] [place] [address] Jan, [facility] [address] [id number] [place] [address] Jan, [facility] [address] [id number] [place] [address] December, [facility] [address] [id number] [place] [address] Nov, [facility] [address] [id number] [place] [address] Nov, [facility] [address] [id number] [place] [address] Oct, [facility] [address] [id number] [place] [address] Oct, [facility] [address] [id number] [place] [address] Oct, [facility] [address] [id number] [place] [address] Aug, [facility] [address] [id number] [place] [address] Aug, [facility] [address] [id number] [place] [address] Jul, [facility] [address] [id number] [place] [address] Jul, [facility] [address] [id number] [place] [address] Jul, [facility] [address] [id number] [place] [address] Jul, [facility] [address] [id number] [place] [address] Jun, [facility] [address] [id number] [place] [address] Jun, [facility] [address] [id number] [place] [address] May, [facility] [address] [id number] [place] [address] Mar, [facility] [address] [id number] [place] [address] Mar, [facility] [address] [id number] [place] [address] Jan, [facility] [address] [id number] [place] [address] Jan, [facility] [address] [id number] [place] [address] December, [facility] [address] [id number] [place] [address] December, [facility] [address] [id number] [place] [address] December, [facility] [address] [place] [id number] [place] [address] 17 Dec, 2011 [facility] [address] [place] [id number] [place] [address] 17 Sep, 2011 [facility] [address] [place] [id number] [place] [address] 13 Sep, 2011 [facility] [address] [place] [id number] [place] [address] 14 Jun, 2011 [facility] [address] [place] [id number] [place] [address] 14 Jun, 2011 [facility] [address] [place] [id number] [place] [address] 18 May, 2011 [facility] [address] [place] [id number] [place] [address] Feb, [facility] [address] [place] [id number] [place] [address] Mar, [facility] [address] [place] [id number] [place] [address] Nov, [facility] [address] [place] [id number] [place] [address] Sep, [facility] [address] [place] [id number] [place] [address] Jun, [facility] [address] [place] [id number] [place] [address] Jun, [facility] [address] [place] [id number] [place] [address] May, [facility] [address] [place] [id number] [place] [address] Mar, [facility] [address] [place] [id number] [place] [address] December, IMMUNIZATIONS No Known Immunizations SOCIAL HISTORY [...]
--- OUTSIDE RECORDS SUMMARY | 2020-02-28 02:33 | XMS REPORT ---
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 Active 140723605 Problem Essential hypertension I10 Active 55668970 Problem Stage 3 chronic kidney disease N18.3 Active 752198253 Problem Memory loss R41.3 Active 63281067 Problem Primary insomnia F51.01 Active 397 2004 Problem Nocturnal hypoxia G47.34 Active 38 9481308 Problem Hyperlipidemia, unspecified hyperlipidemia E78.5 Active 20254435 Problem Gastroesophageal reflux disease without esophagitis K21.9 Active 219983405 Problem Anxiety F41.9 Active 57832983 Problem Other chronic gastritis without hemorrhage K29.50 Active 6137031 ALLERGIES No Information ENCOUNTERS Encounter Location Date Diagnosis [place] [id number] [facility] [id number] [address] [place] [id number] Nov, [facility] [address] [facility] [id number] [address] [place] [address] Oct, [place] [address] [facility] [id number] [address] [place] [address] Oct, [place] [address] [facility] [id number] [address] [place] [address] Oct, CN palsy, left eye H49.22 ; Primary insomnia F51.01 ; Pulsatile tinnitus of left ear H93.A2 and Seborrheic keratosis L82.1 [facility] [address] [place] [id number] [address] [place] [address] Aug, CN palsy, left eye H49.22 ; Essential hypertension I10 ; Arthralgia, unspecified joint M25.50 and Primary insomnia F51.01 [facility] [address] [place] [id number] [place] [address] Jul, Cranial nerve palsy G52.9 [facility] [address] [place] [id number] [place] [address] Jul, Cranial nerve palsy G52.9 ; Stage 3 chronic kidney disease N18.3 ; Family history of embolic stroke Z82.3 and Numbness of left hand R20.0 [place] [address] [place] [id number] [place] [address] Jun, Anxiety F41.9 and Essential hypertension I10 [place] [address] [address] Jun, [facility] [address] [place] [id number] [place] [address] Jun, Essential hypertension I10 [place] [address] [address] May, [facility] [address] [place] [id number] [place] [address] May, Herpes zoster without compli cation B02.9 and Stage 3 chronic kidney disease N18.3 [facility] [address] [place] [id number] [address] [place] [address] Mar, Essential hypertension I10 [facility] [address] [place] [id number] [place] [address] Feb, [facility] [address] [place] [id number] [address] [place] [id number] Feb, [facility] [address] [address] Feb, Essential hypertension I10 a nd Acute midline low back pain without sciatica M54.5 [facility] [address] [address] December, Insect bite (nonvenomous) of lower back and pelvis, initial encounter S30.860A and Bitten or stung by nonvenomous insect and other nonvenomous arthropods, initial encounter W57.XXXA [facility] [address] [address] Nov, Pleurisy R09.1 [place] [address] [address] Nov, [facility] [address] [address] Oct, Hypoxemia R09.02 and Fatigue , unspecified type R53.83 [place] [address] [address] 12 Sep, 2017 Other chronic gastritis with out hemorrhage K29.50 ; Gastroesophageal reflux disease without esophagitis K21.9 ; Hyperlipidemia, unspecified hyperlipidemia E78.5 and Arthralgia, unspecified joint M25.50 [facility] [address] [address] Aug, Hypertriglyceridemia E78.1 [place] [address] [address] 02 May, 2017 Anxiety F41.9 [place] [address] [address] 21 Apr, 2017 Hyperlipidemia, unspecified hyperlipidemia E78.5 ; Gastroesophageal reflux disease without esophagitis K21.9 ; Forgetfulness R68.89 ; Essential hypertension I10 and Anxiety F41.9 [place] [address] [address] 14 Apr, 2017 Hypertriglyceridemia E78.1 [place] [address] [place] [address] Mar, Medicare annual wellness vis it, subsequent Z00.00 ; Hyperlipidemia, unspecified hyperlipidemia E78.5 and Essential hypertension I10 [place] [address] [address] Mar, Forgetfulness R68.89 ; Fatig ue, unspecified type R53.83 and Essential hypertension I10 [place] [address] [address] Mar, Primary osteoarthritis, 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 and Strain of left trapezius muscle, initial encounter S46.812A [place] [address] Feb, Left wrist pain M25.532 [place] [address] [address] 07 Feb, 2017 Left wrist pain M25.532 [place] [address] [address] December, Hypertriglyceridemia E78.1 ; Encounter for immunization Z23 ; Forgetfulness R68.89 and Fatigue, unspecified type R53.83 [place] [address] [address] Jun, Forgetfulness R68.89 and Rhi nitis, unspecified type J31.0 [place] [address] [address] May, [address] [address] May, Hypoxemia R09.02 ; Memory lo ss R41.3 ; Arthralgia, unspecified joint M25.50 and Rhinitis, unspecified type J31.0 [place] [address] [place] [id number] [address] [place] [address] Mar, Vertigo R42 ; Orthostatic hy potension I95.1 and Chronic gastritis without bleeding, unspecified gastritis type K29.50 [place] [address] [facility] [id number] [address] [place] [address] Feb, [place] [address] [address] Feb, Forgetfulness R68.89 [place] [address] [place] [id number] [place] [address] Jan, [place] [address] [address] Jan, Gastroesophageal reflux dise ase without esophagitis K21.9 ; Fatigue, unspecified type R53.83 ; Weakness R53.1 ; Forgetfulness R68.89 ; Hyperlipidemia, unspecified hyperlipidemia E78.5 and Hearing abnormally acute, unspecified laterality H93.239 [place] [address] [address] Oct, [place] [address] [address] Aug, Upper respiratory tract infe ction, unspecified type J06.9 [place] [address] [address] Aug, [place] [address] [place] [id number] [place] [address] Jun, Acute idiopathic gout, unspe cified site M10.00 ; Encounter for immunization Z23 ; Hyperlipidemia, unspecified hyperlipidemia E78.5 ; Gastroesophageal reflux disease without esophagitis K21.9 and Fatigue, unspecified type R53.83 [place] [address] [place] [id number] [address] [place] [address] 17 Jan, 2015 Esophageal reflux 530.81 and Irritable bowel syndrome 564.1 [place] [address] [place] [id number] [address] [place] [address] 15 Jan, 2015 [place] [address] [place] [id number] [place] [address] Jan, Gastritis 535.50 ; Hx of col onic polyp V12.72 and Positional vertigo 386.11 [facility] [address] [facility] [id number] [address] [place] [address] Jan, [facility] [address] [facility] [id number] [address] [place] [address] Jan, Dizziness 780.4 and Nausea & vomiting 787.01 [facility] [address] [facility] [id number] [address] [place] [address] Nov, [facility] [address] [id number] [address] [place] [address] Nov, [facility] [address] [facility] [id number] [address] [place] [address] Nov, [facility] [address] [facility] [id number] [address] [place] [address] Nov, [facility] [address] [facility] [id number] [address] [place] [address] Oct, [facility] [address] [facility] [id number] [address] [place] [address] Oct, [facility] [address] [facility] [id number] [address] [place] [address] Oct, [facility] [address] [facility] [id number] [address] [place] [address] Aug, [facility] [address] [facility] [id number] [address] [place] [address] Aug, [facility] [address] [facility] [id number] [address] [place] [address] Aug, [facility] [address] [facility] [id number] [address] [place] [address] Jul, [facility] [address] [facility] [id number] [address] [place] [id number] Jul, [facility] [address] [facility] [id number] [address] [place] [address] Jul, [facility] [address] [id number] [address] [place] [address], [place] [address] Jul, [facility] [address] [id number] [address] [place] [address], [place] [address] Jul, [facility] [address] [id number] [address] [place] [address], [place] [address] Jul, [facility] [address] [id number] [address] [place] [address], [place] [address] Jul, [facility] [address] [id number] [address] [place] [address], [place] [address] Jul, [facility] [address] [id number] [address] [place] [address], [place] [address] Jul, [facility] [address] [id number] [address] [place] [address], [place] [address] Jul, [facility] [address] [id number] [address] [place] [address], [place] [address] Jul, [facility] [address] [id number] [address] [place] [address], [place] [address] Jun, [facility] [address] [id number] [address] [place] [address], [place] [id number] 14 Jun, 2014 [facility] [address] [id number] [address] [place] [address], [place] [address] Jun, [facility] [address] [id number] [address] [place] [address], [place] [address] 10 Jun, 2014 [facility] [address] [id number] [address] [place] [address], [place] [id number] 17 Apr, 2014 [facility] [address] [id number] [address] [place] [address], [place] [id number] 17 Apr, 2014 [facility] [address] [id number] [address] [place] [address], [place] [id number] 17 Apr, 2014 [facility] [address] [id number] [address] [place] [address], [place] [address] Apr, [facility] [address] [id number] [address] [place] [address], [place] [address] Feb, [facility] [address] [id number] [address] [place] [address], [place] [id number] Feb, [facility] [address] [id number] [address] [place] [address], [place] [address] Feb, [facility] [address] [id number] [address] [place] [address], [place] [id number] Feb, [facility] [address] [id number] [address] [place] [address], [place] [address] Jan, [facility] [address] [id number] [address] [place] [address], [place] [id number] Jan, [facility] [address] [id number] [address] [place] [address], [place] [address] Jan, [facility] [address] [id number] [address] [place] [address], [place] [id number] Jan, [facility] [address] [id number] [address] [place] [address], [place] [address] December, [facility] [address] [id number] [address] [place] [address], [place] [id number] December, [facility] [address] [id number] [address] [place] [address], [place] [address] December, [facility] [address] [id number] [address] [place] [address], [place] [address] December, [facility] [address] [id number] [address] [place] [address], [place] [address] December, [facility] [address] [id number] [address] [place] [address], [place] [id number] December, [facility] [address] [id number] [address] [place] [address], [place] [address] Oct, [facility] [address] [id number] [address] [place] [address], [place] [address] Oct, [facility] [address] [id number] [address] [place] [address], [place] [address] Sep, [facility] [address] [id number] [address] [place] [address], [place] [address] Sep, [facility] [address] [id number] [address] [place] [address], [place] [id number] Aug, [facility] [address] [id number] [address] [place] [address], [place] [address] Aug, [facility] [address] [id number] [address] [place] [address], [place] [address] Jul, [facility] [address] [id number] [address] [place] [address], [place] [address] Jul, [facility] [address] [id number] [address] [place] [address], [place] [address] May, [facility] [address] [id number] [address] [place] [address], [place] [address] May, [facility] [address] [id number] [address] [place] [address] May, [facility] [address] [id number] [address] [place] [address], [place] [address] Apr, [facility] [address] [id number] [address] [place] [id number] Feb, [facility] [address] [id number] [address] [place] [address], [place] [address] Feb, [facility] [address] [id number] [address] [place] [address], [place] [address] Feb, [facility] [address] [id number] [address] [place] [address], [place] [address] Feb, [facility] [address] [id number] [address] [place] [address] Jan, [facility] [address] [id number] [address] [place] [address], [place] [address] Jan, [facility] [address] [id number] [address] [place] [address], [place] [address] December, [facility] [address] [id number] [address] [place] [address], [place] [address] Nov, [facility] [address] [id number] [address] [place] [address], [place] [address] Nov, [facility] [address] [id number] [address] [place] [address], [place] [address] Oct, [facility] [address] [id number] [address] [place] [address], [place] [address] Oct, [facility] [address] [id number] [address] [place] [address], [place] [address] Oct, [facility] [address] [id number] [address] [place] [address], [place] [address] Aug, [facility] [address] [id number] [address] [place] [address], [place] [address] Aug, [facility] [address] [id number] [address] [place] [address], [place] [id number] Jul, [facility] [address] [id number] [address] [place] [address], [place] [address] Jul, [facility] [address] [id number] [address] [place] [address], [place] [address] Jul, [facility] [address] [id number] [address] [place] [address], [place] [address] Jul, [facility] [address] [id number] [address] [place] [address], [place] [address] Jun, [facility] [address] [id number] [address] [place] [address], [place] [id number] Jun, [facility] [address] [id number] [address] [place] [address], [place] [id number] May, [facility] [address] [id number] [address] [place] [address], [place] [address] Mar, [facility] [address] [id number] [address] [place] [address], [place] [address] Mar, [facility] [address] [id number] [address] [place] [address], [place] [address] Jan, [facility] [address] [id number] [address] [place] [address], [place] [address] Jan, [facility] [address] [id number] [address] [place] [address], [place] [address] December, [facility] [address] [id number] [address] [place] [address], [place] [address] December, [facility] [address] [id number] [address] [place] [address], [place] [address] December, [facility] [address] [id number] [address] [place] [address], [place] [address] December, [facility] [address] [id number] [address] [place] [address], [place] [address] Sep, [facility] [address] [id number] [address] [place] [address], [place] [address] Sep, [facility] [address] [id number] [address] [place] [address], [place] [address] Jun, [facility] [address] [id number] [address] [place] [address], [place] [address] 14 Jun, 2011 [facility] [address] [id number] [address] [place] [address], [place] [id number] 18 May, 2011 [facility] [address] [id number] [address] [place] [address], [place] [id number] Feb, [facility] [address] [id number] [address] [place] [address], [place] [address] Mar, [facility] [address] [facility] [id number] [address] [place] [id number] Nov, [facility] [address] [facility] [id number] [address] [place] [id number] Sep, [facility] [address] [facility] [id number] [address] [place] [id number] Jun, [facility] [address] [facility] [id number] [address] [place] [id number] Jun, [facility] [address] [facility] [id number] [address] [place] [id number] May, [facility] [address] [facility] [id number] [address] [place] [id number] Mar, [facility] [address] [facility] [id number] [address] [place] [id number] December, IMMUNIZATIONS No Known Immunizations SOCIAL HISTORY [...]
--- OUTSIDE RECORDS SUMMARY | 2020-02-28 02:33 | XMS REPORT ---
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 Active 966259427 Problem Essential hypertension I10 Active 94157320 Problem Stage 3 chronic kidney disease N18.3 Active 030391360 Problem Memory loss R41.3 Active 46098270 Problem Primary insomnia F51.01 Active 397 2004 Problem Nocturnal hypoxia G47.34 Active 38 5491822 Problem Hyperlipidemia, unspecified hyperlipidemia E78.5 Active 51240637 Problem Gastroesophageal reflux disease without esophagitis K21.9 Active 809203436 Problem Anxiety F41.9 Active 89501596 Problem Other chronic gastritis without hemorrhage K29.50 Active 4781387 ALLERGIES No Information ENCOUNTERS Encounter Location Date Diagnosis [place] [address] [address] Nov, [facility] [address] [address] Oct, [place] [address] [address] Oct, [place] [address] [address] Oct, CN palsy, left eye H49.22 ; Primary i nsomnia F51.01 ; Pulsatile tinnitus of left ear H93.A2 and Seborrheic keratosis L82.1 [place] [address] [address] Aug, CN palsy, left eye H49.22 ; Essential hypertension I10 ; Arthralgia, unspecified joint M25.50 and Primary insomnia F51.01 [place] [address] [address] Jul, Cranial nerve palsy 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.9 [place] [address] [address] Jul, Cranial nerve palsy G52.9 ; 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 kidney disease 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.3 ; Family history of embolic stroke Z82.3 and Numbness of left hand R20.0 [place] [address] [address] Jun, Anxiety F41.9 and Essential hypertension I10 [place] [address] [address] Jun, [place] [address] [address] Jun, Essential hypertension I10 [place] [address] [address] May, [place] [address] [address] May, Herpes zoster without complication B02.9 and Stage 3 chronic kidney disease N18.3 [place] [address] [address] Mar, Essential hypertension I10 [place] [address] [address] Feb, [place] [address] [address] Feb, [place] [address] [address] Feb, Essential hypertension I10 and Acute mid line low back pain without sciatica M54.5 [facility] [address] [facility] [id number] [place] [address] December, Insect bite (nonvenomous) of lower back and pelvis, initial encounter S30.860A and Bitten or stung by nonvenomous insect and other nonvenomous arthropods, initial encounter W57.XXXA [place] [address] [address] Nov, Pleurisy R09.1 [place] [address] [address] Nov, [place] [address] [address] Oct, Hypoxemia R09.02 and Fatigue, unspecifie d type R53.83 [place] [address] [address] Sep, Other chronic gastritis without hemorrha ge K29.50 ; Gastroesophageal reflux disease without esophagitis K21.9 ; Hyperlipidemia, unspecified hyperlipidemia E78.5 and Arthralgia, unspecified joint M25.50 [place] [address] [address] Aug, Hypertriglyceridemia E78.1 [place] [address] [address] May, Anxiety F41.9 [place] [address] [address] Apr, Hyperlipidemia, unspecified hyperlipidem ia E78.5 ; Gastroesophageal reflux disease without esophagitis K21.9 ; Forgetfulness R68.89 ; Essential hypertension I10 and Anxiety F41.9 [place] [address] [address] 14 Apr, 2017 Hypertriglyceridemia E78.1 [place] [address] [address] Mar, Medicare annual wellness visit, subseque nt Z00.00 ; Hyperlipidemia, unspecified hyperlipidemia E78.5 and Essential hypertension I10 [place] [address] [address] Mar, Forgetfulness R68.89 ; Fatigue, unspecif ied type R53.83 and Essential hypertension I10 [place] [address] [address] Mar, Primary osteoarthritis, left wrist M19.0 32 and Strain of left trapezius muscle, initial encounter S46.812A [place] [address] [address] Feb, Left wrist pain M25.532 [place] [address] [address] Feb, Left wrist pain M25.532 [place] [address] [address] December, Hypertriglyceridemia E78.1 ; Encounter f or immunization Z23 ; Forgetfulness R68.89 and Fatigue, unspecified type R53.83 [place] [address] [address] Jun, Forgetfulness R68.89 and Rhinitis, unspe cified type J31.0 [place] [address] [address] May, [place] [address] [address] May, Hypoxemia R09.02 ; Memory loss R41.3 ; A rthralgia, unspecified joint M25.50 and Rhinitis, unspecified type J31.0 [place] [address] [address] Mar, Vertigo R42 ; Orthostatic hypotension I9 5.1 and Chronic gastritis without bleeding, unspecified gastritis type K29.50 [place] [address] [address] Feb, [place] [address] [address] Feb, Forgetfulness R68.89 [place] [address] [address] Jan, [address] [address] Jan, Gastroesophageal reflux disease without esophagitis K21.9 ; Fatigue, unspecified type R53.83 ; Weakness R53.1 ; Forgetfulness R68.89 ; Hyperlipidemia, unspecified hyperlipidemia E78.5 and Hearing abnormally acute, unspecified laterality H93.[address] [address] Oct, [address] [address] Aug, Upper respiratory tract infection, unspe cified type J06.[address] [address] Aug, [address] [address] Jun, Acute idiopathic gout, unspecified site M10.00 ; Encounter for immunization Z23 ; Hyperlipidemia, unspecified hyperlipidemia E78.5 ; Gastroesophageal reflux disease without esophagitis K21.9 and Fatigue, unspecified type R53.[address] [address] Jan, Esophageal reflux 530.81 and Irritable b owel syndrome 564.[address] [address] Jan, [address] [address] Jan, Gastritis 535.50 ; Hx of colonic polyp V 12.72 and Positional vertigo 386.[address] [address] Jan, [address] [address] 04 Jan, 2015 Dizziness 780.4 and Nausea & vomiting 78 7.01 [facility] [address] [id number] [place] [address] Nov, [facility] [address] [id number] [place] [address] 28 Nov, 2014 [facility] [address] [id number] [place] [address] 14 Nov, 2014 [facility] [address] [place] [id number] [place] [address] 13 Nov, 2014 [facility] [address] [id number] [place] [address] 16 Oct, 2014 [facility] [address] [place] [id number] [place] [address] Oct, [facility] [address] [id number] [place] [address] Oct, [facility] [address] [place] [id number] [place] [address] Aug, [facility] [address] [id number] [place] [address] Aug, [facility] [address] [place] [id number] [place] [address] Aug, [facility] [address] [id number] [place] [address] Jul, [facility] [address] [place] [id number] [place] [address] Jul, [facility] [address] [id number] [place] [address] Jul, [facility] [address] [id number] [place] [address] Jul, [facility] [address] [id number] [place] [address] Jul, [facility] [address] [id number] [place] [address] 08 Jul, 2014 [facility] [address] [id number] [place] [address] Jul, [facility] [address] [facility] [id number] [place] [address] Jul, [facility] [address] [facility] [id number] [place] [address] Jul, [facility] [address] [id number] [place] [address] Jul, [facility] [address] [id number] [place] [address] Jul, [facility] [address] [id number] [place] [address] Jun, [facility] [address] [id number] [place] [address] Jun, [facility] [address] [id number] [place] [address] Jun, [facility] [address] [id number] [place] [address] Jun, [facility] [address] [id number] [place] [address] Apr, [facility] [address] [id number] [place] [address] Apr, [facility] [address] [id number] [place] [address] Apr, [facility] [address] [id number] [place] [address] Apr, [facility] [address] [id number] [place] [address] Feb, [facility] [address] [id number] [place] [address] Feb, [facility] [address] [id number] [place] [address] Feb, [facility] [address] [id number] [place] [address] Feb, [facility] [address] [id number] [place] [address] Jan, [facility] [address] [id number] [place] [address] Jan, [facility] [address] [id number] [place] [address] Jan, [facility] [address] [id number] [place] [address] Jan, [facility] [address] [id number] [place] [address] December, [facility] [address] [id number] [place] [address] December, [facility] [address] [id number] [place] [address] December, [facility] [address] [id number] [place] [address] December, [facility] [address] [id number] [place] [address] December, [facility] [address] [id number] [place] [address] December, [facility] [address] [id number] [place] [address] Oct, [facility] [address] [id number] [place] [address] Oct, [facility] [address] [id number] [place] [address] Sep, [facility] [address] [id number] [place] [address] Sep, [facility] [address] [id number] [place] [address] Aug, [facility] [address] [id number] [place] [address] Aug, [facility] [address] [id number] [place] [address] Jul, [facility] [address] [facility] [id number] [place] [address] Jul, [facility] [address] [facility] [id number] [place] [address] May, [facility] [address] [id number] [place] [address] May, [facility] [address] [id number] [place] [address] May, [facility] [address] [facility] [id number] [place] [address] Apr, [facility] [address] [id number] [place] [address] Feb, [facility] [address] [id number] [place] [address] Feb, [facility] [address] [id number] [place] [address] Feb, [facility] [address] [id number] [place] [address] Feb, [facility] [address] [id number] [place] [address] Jan, [facility] [address] [id number] [place] [address] Jan, [facility] [address] [id number] [place] [address] December, [facility] [address] [id number] [place] [address] Nov, [facility] [address] [id number] [place] [address] Nov, [facility] [address] [id number] [place] [address] Oct, [facility] [address] [id number] [place] [address] Oct, [facility] [address] [id number] [place] [address] Oct, [facility] [address] [id number] [place] [address] Aug, [facility] [address] [id number] [place] [address] Aug, [facility] [address] [id number] [place] [address] Jul, [facility] [address] [id number] [place] [address] Jul, [facility] [address] [id number] [place] [address] Jul, [facility] [address] [id number] [place] [address] Jul, [facility] [address] [id number] [place] [address] Jun, [facility] [address] [id number] [place] [address] Jun, [facility] [address] [id number] [place] [address] May, [facility] [address] [id number] [place] [address] Mar, [facility] [address] [id number] [place] [address] Mar, [facility] [address] [id number] [place] [address] Jan, [facility] [address] [id number] [place] [address] Jan, [facility] [address] [id number] [place] [address] December, [facility] [address] [id number] [place] [address] December, [facility] [address] [id number] [place] [address] December, [facility] [address] [place] [id number] [place] [address] 17 Dec, 2011 [facility] [address] [place] [id number] [place] [address] 17 Sep, 2011 [facility] [address] [place] [id number] [place] [address] 13 Sep, 2011 [facility] [address] [place] [id number] [place] [address] 14 Jun, 2011 [facility] [address] [place] [id number] [place] [address] 14 Jun, 2011 [facility] [address] [place] [id number] [place] [address] 18 May, 2011 [facility] [address] [place] [id number] [place] [address] Feb, [facility] [address] [place] [id number] [place] [address] Mar, [facility] [address] [place] [id number] [place] [address] Nov, [facility] [address] [place] [id number] [place] [address] Sep, [facility] [address] [place] [id number] [place] [address] Jun, [facility] [address] [place] [id number] [place] [address] Jun, [facility] [address] [place] [id number] [place] [address] May, [facility] [address] [place] [id number] [place] [address] Mar, [facility] [address] [place] [id number] [place] [address] December, IMMUNIZATIONS No Known Immunizations SOCIAL HISTORY [...]
--- OUTSIDE RECORDS SUMMARY | 2020-02-28 02:33 | XMS REPORT ---
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 Active 959944882 Problem Essential hypertension I10 Active 69575772 Problem Stage 3 chronic kidney disease N18.3 Active 854957948 Problem Memory loss R41.3 Active 69215926 Problem Primary insomnia F51.01 Active 397 2004 Problem Nocturnal hypoxia G47.34 Active 38 1647931 Problem Hyperlipidemia, unspecified hyperlipidemia E78.5 Active 31104130 Problem Gastroesophageal reflux disease without esophagitis K21.9 Active 573108095 Problem Anxiety F41.9 Active 13077719 Problem Other chronic gastritis without hemorrhage K29.50 Active 6393341 ALLERGIES No Information ENCOUNTERS Encounter Location Date Diagnosis [place] [address] [address] Nov, [facility] [address] [address] Oct, [place] [address] [address] Oct, [place] [address] [address] Oct, CN palsy, left eye H49.22 ; Primary i nsomnia F51.01 ; Pulsatile tinnitus of left ear H93.A2 and Seborrheic keratosis L82.1 [place] [address] [address] Aug, CN palsy, left eye H49.22 ; Essential hypertension I10 ; Arthralgia, unspecified joint M25.50 and Primary insomnia F51.01 [place] [address] [address] Jul, Cranial nerve palsy G52.9 [place] [address] [address] Jul, Cranial nerve palsy G52.9 ; Stage 3 chrome tanner melvina kidney disease N18.3 ; Family history of embolic stroke Z82.3 and Numbness of left hand R20.0 [place] [address] [address] Jun, Anxiety F41.9 and Essential hypertension I10 [place] [address] [address] Jun, [place] [address] [address] Jun, Essential hypertension I10 [place] [address] [address] May, [place] [address] [address] May, Herpes zoster without complication B02.9 and Stage 3 chronic kidney disease N18.3 [place] [address] [address] Mar, Essential hypertension I10 [place] [address] [address] Feb, [place] [address] [address] Feb, [place] [address] [address] Feb, Essential hypertension I10 and Acute mid line low back pain without sciatica M54.5 [facility] [address] [facility] [place] [id number] [place] [address] December, Insect bite (nonvenomous) of lower back and pelvis, initial encounter S30.860A and Bitten or stung by nonvenomous insect and other nonvenomous arthropods, initial encounter W57.XXXA [place] [address] [address] Nov, Pleurisy R09.1 [place] [address] [address] Nov, [place] [address] [address] Oct, Hypoxemia R09.02 and Fatigue, unspecifie d type R53.83 [place] [address] [address] Sep, Other chronic gastritis without hemorrha ge K29.50 ; Gastroesophageal reflux disease without esophagitis K21.9 ; Hyperlipidemia, unspecified hyperlipidemia E78.5 and Arthralgia, unspecified joint M25.50 [place] [address] [address] Aug, Hypertriglyceridemia E78.1 [place] [address] [address] May, Anxiety F41.9 [place] [address] [address] Apr, Hyperlipidemia, unspecified hyperlipidem ia E78.5 ; Gastroesophageal reflux disease without esophagitis K21.9 ; Forgetfulness R68.89 ; Essential hypertension I10 and Anxiety F41.9 [place] [address] [address] 14 Apr, 2017 Hypertriglyceridemia E78.1 [place] [address] [address] Mar, Medicare annual wellness visit, subseque nt Z00.00 ; Hyperlipidemia, unspecified hyperlipidemia E78.5 and Essential hypertension I10 [place] [address] [address] Mar, Forgetfulness R68.89 ; Fatigue, unspecif ied type R53.83 and Essential hypertension I10 [place] [address] [address] Mar, Primary osteoarthritis, left wrist M19.0 32 and Strain of left trapezius muscle, initial encounter S46.812A [place] [address] [address] Feb, Left wrist pain M25.532 [place] [address] [address] Feb, Left wrist pain M25.532 [place] [address] [address] December, Hypertriglyceridemia E78.1 ; Encounter f or immunization Z23 ; Forgetfulness R68.89 and Fatigue, unspecified type R53.83 [place] [address] [address] Jun, Forgetfulness R68.89 and Rhinitis, unspe cified type J31.0 [place] [address] [address] May, [place] [address] [address] May, Hypoxemia R09.02 ; Memory loss R41.3 ; A rthralgia, unspecified joint M25.50 and Rhinitis, unspecified type J31.0 [place] [address] [address] Mar, Vertigo R42 ; Orthostatic hypotension I9 5.1 and Chronic gastritis without bleeding, unspecified gastritis type K29.50 [place] [address] [address] Feb, [place] [address] [address] Feb, Forgetfulness R68.89 [place] [address] [address] Jan, [address] [address] Jan, Gastroesophageal reflux disease without esophagitis K21.9 ; Fatigue, unspecified type R53.83 ; Weakness R53.1 ; Forgetfulness R68.89 ; Hyperlipidemia, unspecified hyperlipidemia E78.5 and Hearing abnormally acute, unspecified laterality H93.[address] [address] Oct, [address] [address] Aug, Upper respiratory tract infection, unspe cified type J06.[address] [address] Aug, [address] [address] Jun, Acute idiopathic gout, unspecified site M10.00 ; Encounter for immunization Z23 ; Hyperlipidemia, unspecified hyperlipidemia E78.5 ; Gastroesophageal reflux disease without esophagitis K21.9 and Fatigue, unspecified type R53.[address] [address] Jan, Esophageal reflux 530.81 and Irritable b owel syndrome 564.[address] [address] Jan, [address] [address] Jan, Gastritis 535.50 ; Hx of colonic polyp V 12.72 and Positional vertigo 386.[address] [address] Jan, [address] [address] 04 Jan, 2015 Dizziness 780.4 and Nausea & vomiting 78 7.01 [facility] [address] [id number] [place] [address] Nov, [facility] [address] [id number] [place] [address] 28 Nov, 2014 [facility] [address] [id number] [place] [address] 14 Nov, 2014 [facility] [address] [place] [id number] [place] [address] 13 Nov, 2014 [facility] [address] [id number] [place] [address] 16 Oct, 2014 [facility] [address] [place] [id number] [place] [address] Oct, [facility] [address] [id number] [place] [address] Oct, [facility] [address] [place] [id number] [place] [address] Aug, [facility] [address] [id number] [place] [address] Aug, [facility] [address] [place] [id number] [place] [address] Aug, [facility] [address] [id number] [place] [address] Jul, [facility] [address] [place] [id number] [place] [address] Jul, [facility] [address] [id number] [place] [address] Jul, [facility] [address] [id number] [place] [address] Jul, [facility] [address] [id number] [place] [address] Jul, [facility] [address] [id number] [place] [address] 08 Jul, 2014 [facility] [address] [id number] [place] [address] Jul, [facility] [address] [facility] [id number] [address] Jul, [facility] [address] [facility] [place] [id number] [place] [address] Jul, [facility] [address] [id number] [place] [address] Jul, [facility] [address] [id number] [place] [address] Jul, [facility] [address] [id number] [place] [address] Jun, [facility] [address] [id number] [place] [address] Jun, [facility] [address] [id number] [place] [address] Jun, [facility] [address] [id number] [place] [address] Jun, [facility] [address] [id number] [place] [address] Apr, [facility] [address] [id number] [place] [address] Apr, [facility] [address] [id number] [place] [address] Apr, [facility] [address] [id number] [place] [address] Apr, [facility] [address] [id number] [place] [address] Feb, [facility] [address] [id number] [place] [address] Feb, [facility] [address] [id number] [place] [address] Feb, [facility] [address] [id number] [place] [address] Feb, [facility] [address] [id number] [place] [address] Jan, [facility] [address] [id number] [place] [address] Jan, [facility] [address] [id number] [place] [address] Jan, [facility] [address] [id number] [place] [address] Jan, [facility] [address] [id number] [place] [address] December, [facility] [address] [id number] [place] [address] December, [facility] [address] [id number] [place] [address] December, [facility] [address] [id number] [place] [address] December, [facility] [address] [id number] [place] [address] December, [facility] [address] [id number] [place] [address] December, [facility] [address] [id number] [place] [address] Oct, [facility] [address] [id number] [place] [address] Oct, [facility] [address] [id number] [place] [address] Sep, [facility] [address] [id number] [place] [address] Sep, [facility] [address] [id number] [place] [address] Aug, [facility] [address] [id number] [place] [address] Aug, [facility] [address] [id number] [place] [address] Jul, [facility] [address] [facility] [id number] [place] [address] Jul, [facility] [address] [facility] [id number] [place] [address] May, [facility] [address] [id number] [place] [address] May, [facility] [address] [id number] [place] [address] May, [facility] [address] [facility] [id number] [place] [address] Apr, [facility] [address] [id number] [place] [address] Feb, [facility] [address] [id number] [place] [address] Feb, [facility] [address] [id number] [place] [address] Feb, [facility] [address] [id number] [place] [address] Feb, [facility] [address] [id number] [place] [address] Jan, [facility] [address] [id number] [place] [address] Jan, [facility] [address] [id number] [place] [address] December, [facility] [address] [id number] [place] [address] Nov, [facility] [address] [id number] [place] [address] Nov, [facility] [address] [id number] [place] [address] Oct, [facility] [address] [id number] [place] [address] Oct, [facility] [address] [id number] [place] [address] Oct, [facility] [address] [id number] [place] [address] Aug, [facility] [address] [id number] [place] [address] Aug, [facility] [address] [id number] [place] [address] Jul, [facility] [address] [id number] [place] [address] Jul, [facility] [address] [id number] [place] [address] Jul, [facility] [address] [id number] [place] [address] Jul, [facility] [address] [id number] [place] [address] Jun, [facility] [address] [id number] [place] [address] Jun, [facility] [address] [id number] [place] [address] May, [facility] [address] [id number] [place] [address] Mar, [facility] [address] [id number] [place] [address] Mar, [facility] [address] [id number] [place] [address] Jan, [facility] [address] [id number] [place] [address] Jan, [facility] [address] [id number] [place] [address] December, [facility] [address] [id number] [place] [address] December, [facility] [address] [id number] [place] [address] December, [facility] [address] [place] [id number] [place] [address] 17 Dec, 2011 [facility] [address] [place] [id number] [place] [address] 17 Sep, 2011 [facility] [address] [place] [id number] [place] [address] 13 Sep, 2011 [facility] [address] [place] [id number] [place] [address] 14 Jun, 2011 [facility] [address] [place] [id number] [place] [address] 14 Jun, 2011 [facility] [address] [place] [id number] [place] [address] 18 May, 2011 [facility] [address] [place] [id number] [place] [address] Feb, [facility] [address] [place] [id number] [place] [address] Mar, [facility] [address] [place] [id number] [place] [address] Nov, [facility] [address] [place] [id number] [place] [address] Sep, [facility] [address] [place] [id number] [place] [address] Jun, [facility] [address] [place] [id number] [place] [address] Jun, [facility] [address] [place] [id number] [place] [address] May, [facility] [address] [place] [id number] [place] [address] Mar, [facility] [address] [place] [id number] [place] [address] December, IMMUNIZATIONS No Known Immunizations SOCIAL HISTORY [...]
--- OUTSIDE RECORDS SUMMARY | 2020-02-28 02:33 | XMS REPORT ---
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 Active 700014405 Problem Essential hypertension I10 Active 97613158 Problem Stage 3 chronic kidney disease N18.3 Active 865497330 Problem Memory loss R41.3 Active 96096020 Problem Primary insomnia F51.01 Active 397 2004 Problem Nocturnal hypoxia G47.34 Active 38 6111731 Problem Hyperlipidemia, unspecified hyperlipidemia E78.5 Active 20181549 Problem Gastroesophageal reflux disease without esophagitis K21.9 Active 283957286 Problem Anxiety F41.9 Active 29687512 Problem Other chronic gastritis without hemorrhage K29.50 Active 9228301 ALLERGIES No Information ENCOUNTERS Encounter Location Date Diagnosis [place] [address] [address] Nov, [facility] [address] [address] Oct, [place] [address] [address] Oct, [place] [address] [address] Oct, CN palsy, left eye H49.22 ; Primary i nsomnia F51.01 ; Pulsatile tinnitus of left ear H93.A2 and Seborrheic keratosis L82.1 [place] [address] [address] Aug, CN palsy, left eye H49.22 ; Essential hypertension I10 ; Arthralgia, unspecified joint M25.50 and Primary insomnia F51.01 [place] [address] [address] Jul, Cranial nerve palsy G52.9 [place] [address] [address] Jul, Cranial nerve palsy G52.9 ; Stage 3 cake mixer melvina kidney disease N18.3 ; Family history of embolic stroke Z82.3 and Numbness of left hand R20.0 [place] [address] [address] Jun, Anxiety F41.9 and Essential hypertension I10 [place] [address] [address] Jun, [place] [address] [address] Jun, Essential hypertension I10 [place] [address] [address] May, [place] [address] [address] May, Herpes zoster without complication B02.9 and Stage 3 chronic kidney disease N18.3 [place] [address] [address] Mar, Essential hypertension I10 [place] [address] [address] Feb, [place] [address] [address] Feb, [place] [address] [address] Feb, Essential hypertension I10 and Acute mid line low back pain without sciatica M54.5 [facility] [address] [facility] [id number] [place] [address] December, Insect bite (nonvenomous) of lower back and pelvis, initial encounter S30.860A and Bitten or stung by nonvenomous insect and other nonvenomous arthropods, initial encounter W57.XXXA [place] [address] [address] Nov, Pleurisy R09.1 [place] [address] [address] Nov, [place] [address] [address] Oct, Hypoxemia R09.02 and Fatigue, unspecifie d type R53.83 [place] [address] [address] Sep, Other chronic gastritis without hemorrha ge K29.50 ; Gastroesophageal reflux disease without esophagitis K21.9 ; Hyperlipidemia, unspecified hyperlipidemia E78.5 and Arthralgia, unspecified joint M25.50 [place] [address] [address] Aug, Hypertriglyceridemia E78.1 [place] [address] [address] May, Anxiety F41.9 [place] [address] [address] Apr, Hyperlipidemia, unspecified hyperlipidem ia E78.5 ; Gastroesophageal reflux disease without esophagitis K21.9 ; Forgetfulness R68.89 ; Essential hypertension I10 and Anxiety F41.9 [place] [address] [address] 14 Apr, 2017 Hypertriglyceridemia E78.1 [place] [address] [address] Mar, Medicare annual wellness visit, subseque nt Z00.00 ; Hyperlipidemia, unspecified hyperlipidemia E78.5 and Essential hypertension I10 [place] [address] [address] Mar, Forgetfulness R68.89 ; Fatigue, unspecif ied type R53.83 and Essential hypertension I10 [place] [address] [address] Mar, Primary osteoarthritis, left wrist M19.0 32 and Strain of left trapezius muscle, initial encounter S46.812A [place] [address] [address] Feb, Left wrist pain M25.532 [place] [address] [address] Feb, Left wrist pain M25.532 [place] [address] [address] December, Hypertriglyceridemia E78.1 ; Encounter f or immunization Z23 ; Forgetfulness R68.89 and Fatigue, unspecified type R53.83 [place] [address] [address] Jun, Forgetfulness R68.89 and Rhinitis, unspe cified type J31.0 [place] [address] [address] May, [place] [address] [address] May, Hypoxemia R09.02 ; Memory loss R41.3 ; A rthralgia, unspecified joint M25.50 and Rhinitis, unspecified type J31.0 [place] [address] [address] Mar, Vertigo R42 ; Orthostatic hypotension I9 5.1 and Chronic gastritis without bleeding, unspecified gastritis type K29.50 [place] [address] [address] Feb, [place] [address] [address] Feb, Forgetfulness R68.89 [place] [address] [address] Jan, [address] [address] Jan, Gastroesophageal reflux disease without esophagitis K21.9 ; Fatigue, unspecified type R53.83 ; Weakness R53.1 ; Forgetfulness R68.89 ; Hyperlipidemia, unspecified hyperlipidemia E78.5 and Hearing abnormally acute, unspecified laterality H93.[address] [address] Oct, [address] [address] Aug, Upper respiratory tract infection, unspe cified type J06.[address] [address] Aug, [address] [address] Jun, Acute idiopathic gout, unspecified site M10.00 ; Encounter for immunization Z23 ; Hyperlipidemia, unspecified hyperlipidemia E78.5 ; Gastroesophageal reflux disease without esophagitis K21.9 and Fatigue, unspecified type R53.[address] [address] Jan, Esophageal reflux 530.81 and Irritable b owel syndrome 564.[address] [address] Jan, [address] [address] Jan, Gastritis 535.50 ; Hx of colonic polyp V 12.72 and Positional vertigo 386.[address] [address] Jan, [address] [address] 04 Jan, 2015 Dizziness 780.4 and Nausea & vomiting 78 7.01 [facility] [address] [id number] [place] [address] Nov, [facility] [address] [id number] [place] [address] 28 Nov, 2014 [facility] [address] [id number] [place] [address] 14 Nov, 2014 [facility] [address] [place] [id number] [place] [address] 13 Nov, 2014 [facility] [address] [id number] [place] [address] 16 Oct, 2014 [facility] [address] [place] [id number] [place] [address] Oct, [facility] [address] [id number] [place] [address] Oct, [facility] [address] [place] [id number] [place] [address] Aug, [facility] [address] [id number] [place] [address] Aug, [facility] [address] [place] [id number] [place] [address] Aug, [facility] [address] [id number] [place] [address] Jul, [facility] [address] [place] [id number] [place] [address] Jul, [facility] [address] [id number] [place] [address] Jul, [facility] [address] [id number] [place] [address] Jul, [facility] [address] [id number] [place] [address] Jul, [facility] [address] [id number] [place] [address] 08 Jul, 2014 [facility] [address] [id number] [place] [address] Jul, [facility] [address] [facility] [id number] [place] [address] Jul, [facility] [address] [facility] [id number] [place] [address] Jul, [facility] [address] [id number] [place] [address] Jul, [facility] [address] [id number] [place] [address] Jul, [facility] [address] [id number] [place] [address] Jun, [facility] [address] [id number] [place] [address] Jun, [facility] [address] [id number] [place] [address] Jun, [facility] [address] [id number] [place] [address] Jun, [facility] [address] [id number] [place] [address] Apr, [facility] [address] [id number] [place] [address] Apr, [facility] [address] [id number] [place] [address] Apr, [facility] [address] [id number] [place] [address] Apr, [facility] [address] [id number] [place] [address] Feb, [facility] [address] [id number] [place] [address] Feb, [facility] [address] [id number] [place] [address] Feb, [facility] [address] [id number] [place] [address] Feb, [facility] [address] [id number] [place] [address] Jan, [facility] [address] [id number] [place] [address] Jan, [facility] [address] [id number] [place] [address] Jan, [facility] [address] [id number] [place] [address] Jan, [facility] [address] [id number] [place] [address] December, [facility] [address] [id number] [place] [address] December, [facility] [address] [id number] [place] [address] December, [facility] [address] [id number] [place] [address] December, [facility] [address] [id number] [place] [address] December, [facility] [address] [id number] [place] [address] December, [facility] [address] [id number] [place] [address] Oct, [facility] [address] [id number] [place] [address] Oct, [facility] [address] [id number] [place] [address] Sep, [facility] [address] [id number] [place] [address] Sep, [facility] [address] [id number] [place] [address] Aug, [facility] [address] [id number] [place] [address] Aug, [facility] [address] [id number] [place] [address] Jul, [facility] [address] [facility] [id number] [place] [address] Jul, [facility] [address] [facility] [id number] [place] [address] May, [facility] [address] [id number] [place] [address] May, [facility] [address] [id number] [place] [address] May, [facility] [address] [facility] [id number] [place] [address] Apr, [facility] [address] [id number] [place] [address] Feb, [facility] [address] [id number] [place] [address] Feb, [facility] [address] [id number] [place] [address] Feb, [facility] [address] [id number] [place] [address] Feb, [facility] [address] [id number] [place] [address] Jan, [facility] [address] [id number] [place] [address] Jan, [facility] [address] [id number] [place] [address] December, [facility] [address] [id number] [place] [address] Nov, [facility] [address] [id number] [place] [address] Nov, [facility] [address] [id number] [place] [address] Oct, [facility] [address] [id number] [place] [address] Oct, [facility] [address] [id number] [place] [address] Oct, [facility] [address] [id number] [place] [address] Aug, [facility] [address] [id number] [place] [address] Aug, [facility] [address] [id number] [place] [address] Jul, [facility] [address] [id number] [place] [address] Jul, [facility] [address] [id number] [place] [address] Jul, [facility] [address] [id number] [place] [address] Jul, [facility] [address] [id number] [place] [address] Jun, [facility] [address] [id number] [place] [address] Jun, [facility] [address] [id number] [place] [address] May, [facility] [address] [id number] [place] [address] Mar, [facility] [address] [id number] [place] [address] Mar, [facility] [address] [id number] [place] [address] Jan, [facility] [address] [id number] [place] [address] Jan, [facility] [address] [id number] [place] [address] December, [facility] [address] [id number] [place] [address] December, [facility] [address] [id number] [place] [address] December, [facility] [address] [place] [id number] [place] [address] 17 Dec, 2011 [facility] [address] [place] [id number] [place] [address] 17 Sep, 2011 [facility] [address] [place] [id number] [place] [address] 13 Sep, 2011 [facility] [address] [place] [id number] [place] [address] 14 Jun, 2011 [facility] [address] [place] [id number] [place] [address] 14 Jun, 2011 [facility] [address] [place] [id number] [place] [address] 18 May, 2011 [facility] [address] [place] [id number] [place] [address] Feb, [facility] [address] [place] [id number] [place] [address] Mar, [facility] [address] [place] [id number] [place] [address] Nov, [facility] [address] [place] [id number] [place] [address] Sep, [facility] [address] [place] [id number] [place] [address] Jun, [facility] [address] [place] [id number] [place] [address] Jun, [facility] [address] [place] [id number] [place] [address] May, [facility] [address] [place] [id number] [place] [address] Mar, [facility] [address] [place] [id number] [place] [address] December, IMMUNIZATIONS No Known Immunizations SOCIAL HISTORY [...]
--- OUTSIDE RECORDS SUMMARY | 2020-02-28 02:33 | XMS REPORT ---
Author Author Lisy PIERRE Organization [facility] Address [address] [place] [address] Care Team Providers Care Waiter/Waitress Third Class Name Role Phone ROSEANN PIERRE Unavailable PROBLEMS Type Condition ICD9-CM Code KSG05-QL Code Onset Dates Condition S tatus SNOMED Code Problem Hypertriglyceridemia E78.1 Active 665289994 Problem Gastroesophageal reflux disease with esophagitis K 21.0 Active 589339537 Problem Colon polyp K63.5 Active 51283215 Problem Rhinitis, unspecified type J31.0 Act michael 48924740 Problem Primary osteoarthritis, 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 Active 386926480 Problem Essential hypertension I10 Active 38667624 Problem Stage 3 chronic kidney disease N18.3 Active 877549503 Problem Memory loss R41.3 Active 32405424 Problem Primary insomnia F51.01 Active 397 2004 Problem Nocturnal hypoxia G47.34 Active 38 3062232 Problem Hyperlipidemia, unspecified hyperlipidemia E78.5 Active 44495633 Problem Gastroesophageal reflux disease without esophagitis K21.9 Active 169273336 Problem Anxiety F41.9 Active 01651138 Problem Other chronic gastritis without hemorrhage K29.50 Active 0644544 ALLERGIES No Information ENCOUNTERS Encounter Location Date Diagnosis [place] [id number] [facility] [id number] [address] [place] [address] Nov, [facility] [address] [facility] [id number] [address] [place] [address] Oct, [place] [address] [facility] [id number] [address] [place] [address] Oct, [place] [address] [place] [id number] [address] [place] [address] Oct, CN palsy, left eye H49.22 ; Primary insomnia F51.01 ; Pulsatile tinnitus of left ear H93.A2 and Seborrheic keratosis L82.1 [facility] [address] [place] [id number] [address] [place] [address] Aug, CN palsy, left eye H49.22 ; Essential hypertension I10 ; Arthralgia, unspecified joint M25.50 and Primary insomnia F51.01 [facility] [address] [place] [id number] [place] [address] Jul, Cranial nerve palsy G52.9 [facility] [address] [place] [id number] [place] [address] Jul, Cranial nerve palsy G52.9 ; Stage 3 chronic kidney disease N18.3 ; Family history of embolic stroke Z82.3 and Numbness of left hand R20.0 [place] [address] [place] [id number] [place] [address] Jun, Anxiety F41.9 and Essential hypertension I10 [place] [address] [address] Jun, [facility] [address] [place] [id number] [place] [address] Jun, Essential hypertension I10 [place] [address] [address] May, [facility] [address] [place] [id number] [place] [address] May, Herpes zoster without compli cation B02.9 and Stage 3 chronic kidney disease N18.3 [facility] [address] [place] [id number] [address] [place] [address] Mar, Essential hypertension I10 [facility] [address] [place] [id number] [place] [address] Feb, [facility] [address] [place] [id number] [address] [place] [address] Feb, [facility] [address] [address] Feb, Essential hypertension I10 a nd Acute midline low back pain without sciatica M54.5 [facility] [address] [address] December, Insect bite (nonvenomous) of lower back and pelvis, initial encounter S30.860A and Bitten or stung by nonvenomous insect and other nonvenomous arthropods, initial encounter W57.XXXA [facility] [address] [address] Nov, Pleurisy R09.1 [place] [address] [address] Nov, [facility] [address] [address] Oct, Hypoxemia R09.02 and Fatigue , unspecified type R53.83 [place] [address] [address] 12 Sep, 2017 Other chronic gastritis with out hemorrhage K29.50 ; Gastroesophageal reflux disease without esophagitis K21.9 ; Hyperlipidemia, unspecified hyperlipidemia E78.5 and Arthralgia, unspecified joint M25.50 [facility] [address] [address] Aug, Hypertriglyceridemia E78.1 [place] [address] [address] 02 May, 2017 Anxiety F41.9 [place] [address] [address] 21 Apr, 2017 Hyperlipidemia, unspecified hyperlipidemia E78.5 ; Gastroesophageal reflux disease without esophagitis K21.9 ; Forgetfulness R68.89 ; Essential hypertension I10 and Anxiety F41.9 [place] [address] [address] 14 Apr, 2017 Hypertriglyceridemia E78.1 [place] [address] [place] [address] Mar, Medicare annual wellness vis it, subsequent Z00.00 ; Hyperlipidemia, unspecified hyperlipidemia E78.5 and Essential hypertension I10 [place] [address] [address] Mar, Forgetfulness R68.89 ; Fatig ue, unspecified type R53.83 and Essential hypertension I10 [place] [address] [address] Mar, Primary osteoarthritis, 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 and Strain of left trapezius muscle, initial encounter S46.812A [place] 94[address]92[address] Feb, Left wrist pain M25.532 [place] [address] [address] 07 Feb, 2017 Left wrist pain M25.532 [place] [address] [address] December, Hypertriglyceridemia E78.1 ; Encounter for immunization Z23 ; Forgetfulness R68.89 and Fatigue, unspecified type R53.83 [place] [address] [address] Jun, Forgetfulness R68.89 and Rhi nitis, unspecified type J31.0 [place] [address] [address] May, [address] [address] May, Hypoxemia R09.02 ; Memory lo ss R41.3 ; Arthralgia, unspecified joint M25.50 and Rhinitis, unspecified type J31.0 [place] [address] [place] [id number] [address] [place] [address] Mar, Vertigo R42 ; Orthostatic hy potension I95.1 and Chronic gastritis without bleeding, unspecified gastritis type K29.50 [place] [address] [facility] [id number] [address] [place] [address] Feb, [place] [address] [address] Feb, Forgetfulness R68.89 [place] [address] [place] [id number] [place] [address] Jan, [place] [address] [address] Jan, Gastroesophageal reflux dise ase without esophagitis K21.9 ; Fatigue, unspecified type R53.83 ; Weakness R53.1 ; Forgetfulness R68.89 ; Hyperlipidemia, unspecified hyperlipidemia E78.5 and Hearing abnormally acute, unspecified laterality H93.239 [place] [address] [address] Oct, [place] [address] [address] Aug, Upper respiratory tract infe ction, unspecified type J06.9 [place] [address] [address] Aug, [place] [address] [place] [id number] [place] [address] Jun, Acute idiopathic gout, unspe cified site M10.00 ; Encounter for immunization Z23 ; Hyperlipidemia, unspecified hyperlipidemia E78.5 ; Gastroesophageal reflux disease without esophagitis K21.9 and Fatigue, unspecified type R53.83 [place] [address] [place] [id number] [address] [place] [address] 17 Jan, 2015 Esophageal reflux 530.81 and Irritable bowel syndrome 564.1 [place] [address] [place] [id number] [address] [place] [address] 15 Jan, 2015 [place] [address] [place] [id number] [place] [address] Jan, Gastritis 535.50 ; Hx of col onic polyp V12.72 and Positional vertigo 386.11 [facility] [address] [facility] [id number] [address] [place] [address] Jan, [facility] [address] [facility] [id number] [address] [place] [address] Jan, Dizziness 780.4 and Nausea & vomiting 787.01 [facility] [address] [facility] [id number] [address] [place] [address] Nov, [facility] [address] [id number] [address] [place] [address] Nov, [facility] [address] [facility] [id number] [address] [place] [address] Nov, [facility] [address] [facility] [id number] [address] [place] [address] Nov, [facility] [address] [facility] [id number] [address] [place] [address] Oct, [facility] [address] [facility] [id number] [address] [place] [address] Oct, [facility] [address] [facility] [id number] [address] [place] [address] Oct, [facility] [address] [facility] [id number] [address] [place] [address] Aug, [facility] [address] [facility] [id number] [address] [place] [address] Aug, [facility] [address] [facility] [id number] [address] [place] [address] Aug, [facility] [address] [facility] [id number] [address] [place] [address] Jul, [facility] [address] [facility] [id number] [address] [place] [address] Jul, [facility] [address] [facility] [id number] [address] [place] [address] Jul, [facility] [address] [id number] [address] [place] [address], [place] [address] Jul, [facility] [address] [id number] [address] [place] [address], [place] [address] Jul, [facility] [address] [id number] [address] [place] [address], [place] [address] Jul, [facility] [address] [id number] [address] [place] [address], [place] [address] Jul, [facility] [address] [id number] [address] [place] [address], [place] [address] Jul, [facility] [address] [id number] [address] [place] [address], [place] [address] Jul, [facility] [address] [id number] [address] [place] [address], [place] [address] Jul, [facility] [address] [id number] [address] [place] [address], [place] [address] Jul, [facility] [address] [id number] [address] [place] [address], [place] [address] Jun, [facility] [address] [id number] [address] [place] [address], [place] [address] 14 Jun, 2014 [facility] [address] [id number] [address] [place] [address], [place] [address] Jun, [facility] [address] [id number] [address] [place] [address], [place] [address] 10 Jun, 2014 [facility] [address] [id number] [address] [place] [address], [place] [address] 17 Apr, 2014 [facility] [address] [id number] [address] [place] [address], [place] [address] 17 Apr, 2014 [facility] [address] [id number] [address] [place] [address], [place] [address] 17 Apr, 2014 [facility] [address] [id number] [address] [place] [address], [place] [address] Apr, [facility] [address] [id number] [address] [place] [address], [place] [address] Feb, [facility] [address] [id number] [address] [place] [address], [place] [address] Feb, [facility] [address] [id number] [address] [place] [address], [place] [address] Feb, [facility] [address] [id number] [address] [place] [address], [place] [address] Feb, [facility] [address] [id number] [address] [place] [address], [place] [address] Jan, [facility] [address] [id number] [address] [place] [address], [place] [address] Jan, [facility] [address] [id number] [address] [place] [address], [place] [address] Jan, [facility] [address] [id number] [address] [place] [address], [place] [address] Jan, [facility] [address] [id number] [address] [place] [address], [place] [address] December, [facility] [address] [id number] [address] [place] [address], [place] [address] December, [facility] [address] [id number] [address] [place] [address], [place] [address] December, [facility] [address] [id number] [address] [place] [address], [place] [address] December, [facility] [address] [id number] [address] [place] [address], [place] [address] December, [facility] [address] [id number] [address] [place] [address], [place] [address] December, [facility] [address] [id number] [address] [place] [address], [place] [address] Oct, [facility] [address] [id number] [address] [place] [address], [place] [address] Oct, [facility] [address] [id number] [address] [place] [address], [place] [address] Sep, [facility] [address] [id number] [address] [place] [address], [place] [address] Sep, [facility] [address] [id number] [address] [place] [address], [place] [address] Aug, [facility] [address] [id number] [address] [place] [address], [place] [address] Aug, [facility] [address] [id number] [address] [place] [address], [place] [address] Jul, [facility] [address] [id number] [address] [place] [address], [place] [address] Jul, [facility] [address] [id number] [address] [place] [address], [place] [address] May, [facility] [address] [id number] [address] [place] [address], [place] [address] May, [facility] [address] [id number] [address] [place] [address] May, [facility] [address] [id number] [address] [place] [address], [place] [address] Apr, [facility] [address] [id number] [address] [place] [address] Feb, [facility] [address] [id number] [address] [place] [address], [place] [address] Feb, [facility] [address] [id number] [address] [place] [address], [place] [address] Feb, [facility] [address] [id number] [address] [place] [address], [place] [address] Feb, [facility] [address] [id number] [address] [place] [address] Jan, [facility] [address] [id number] [address] [place] [address], [place] [address] Jan, [facility] [address] [id number] [address] [place] [address], [place] [address] December, [facility] [address] [id number] [address] [place] [address], [place] [address] Nov, [facility] [address] [id number] [address] [place] [address], [place] [address] Nov, [facility] [address] [id number] [address] [place] [address], [place] [address] Oct, [facility] [address] [id number] [address] [place] [address], [place] [address] Oct, [facility] [address] [id number] [address] [place] [address], [place] [address] Oct, [facility] [address] [id number] [address] [place] [address], [place] [address] Aug, [facility] [address] [id number] [address] [place] [address], [place] [address] Aug, [facility] [address] [id number] [address] [place] [address], [place] [address] Jul, [facility] [address] [id number] [address] [place] [address], [place] [address] Jul, [facility] [address] [id number] [address] [place] [address], [place] [address] Jul, [facility] [address] [id number] [address] [place] [address], [place] [address] Jul, [facility] [address] [id number] [address] [place] [address], [place] [address] Jun, [facility] [address] [id number] [address] [place] [address], [place] [address] Jun, [facility] [address] [id number] [address] [place] [address], [place] [address] May, [facility] [address] [id number] [address] [place] [address], [place] [address] Mar, [facility] [address] [id number] [address] [place] [address], [place] [address] Mar, [facility] [address] [id number] [address] [place] [address], [place] [address] Jan, [facility] [address] [id number] [address] [place] [address], [place] [address] Jan, [facility] [address] [id number] [address] [place] [address], [place] [address] December, [facility] [address] [id number] [address] [place] [address], [place] [address] December, [facility] [address] [id number] [address] [place] [address], [place] [address] December, [facility] [address] [id number] [address] [place] [address], [place] [address] December, [facility] [address] [id number] [address] [place] [address], [place] [address] Sep, [facility] [address] [id number] [address] [place] [address], [place] [address] Sep, [facility] [address] [id number] [address] [place] [address], [place] [address] Jun, [facility] [address] [id number] [address] [place] [address], [place] [address] 14 Jun, 2011 [facility] [address] [id number] [address] [place] [address], [place] [address] 18 May, 2011 [facility] [address] [id number] [address] [place] [address], [place] [address] Feb, [facility] [address] [id number] [address] [place] [address], [place] [address] Mar, [facility] [address] [facility] [id number] [address] [place] [address] Nov, [facility] [address] [facility] [id number] [address] [place] [address] Sep, [facility] [address] [facility] [id number] [address] [place] [address] Jun, [facility] [address] [facility] [id number] [address] [place] [id number] Jun, [facility] [address] [facility] [id number] [address] [place] [address] May, [facility] [address] [facility] [id number] [address] [place] [address] Mar, [facility] [address] [facility] [id number] [address] [place] [address] December, IMMUNIZATIONS No Known Immunizations SOCIAL HISTORY Never Assessed REASON FOR VISIT referral request PLAN OF CARE VITAL SIGNS MEDICATIONS Unknown [...]
--- OUTSIDE RECORDS SUMMARY | 2020-02-28 02:34 | XMS REPORT ---
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 Active 915514779 Problem Essential hypertension I10 Active 08697904 Problem Stage 3 chronic kidney disease N18.3 Active 857619198 Problem Memory loss R41.3 Active 21305367 Problem Primary insomnia F51.01 Active 397 2004 Problem Nocturnal hypoxia G47.34 Active 38 2706780 Problem Hyperlipidemia, unspecified hyperlipidemia E78.5 Active 02712921 Problem Anxiety F41.9 Active 77772581 Problem Gastroesophageal reflux disease without esophagitis K21.9 Active 012968196 Problem Other chronic gastritis without hemorrhage K29.50 Active 6528384 ALLERGIES No Information ENCOUNTERS Encounter Location Date Diagnosis [place] [address] [address] Nov, [facility] [address] [address] Oct, [place] [address] [address] Oct, [place] [address] [address] Oct, CN palsy, left eye H49.22 ; Primary i nsomnia F51.01 ; Pulsatile tinnitus of left ear H93.A2 and Seborrheic keratosis L82.1 [place] [address] [address] Aug, CN palsy, left eye H49.22 ; Essential hypertension I10 ; Arthralgia, unspecified joint M25.50 and Primary insomnia F51.01 [place] [address] [address] Jul, Cranial nerve palsy G52.9 [place] [address] [address] Jul, Cranial nerve palsy G52.9 ; 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 ; Family history of embolic stroke Z82.3 and Numbness of left hand R20.0 [place] [address] [address] Jun, Anxiety F41.9 and Essential hypertension I10 [place] [address] [address] Jun, [place] [address] [address] Jun, Essential hypertension I10 [place] [address] [address] May, [place] [address] [address] May, Herpes zoster without complication B02.9 and Stage 3 chronic kidney disease N18.3 [place] [address] [address] Mar, Essential hypertension I10 [place] [address] [address] Feb, [place] [address] [address] Feb, [place] [address] [address] Feb, Essential hypertension I10 and Acute mid line low back pain without sciatica M54.5 [facility] [address] [facility] [id number] [address] [place] [address] December, Insect bite (nonvenomous) of lower back and pelvis, initial encounter S30.860A and Bitten or stung by nonvenomous insect and other nonvenomous arthropods, initial encounter W57.XXXA [place] [address] [address] Nov, Pleurisy R09.1 [place] [address] [address] Nov, [place] [address] [address] Oct, Hypoxemia R09.02 and Fatigue, unspecifie d type R53.83 [place] [address] [address] Sep, Other chronic gastritis without hemorrha ge K29.50 ; Gastroesophageal reflux disease without esophagitis K21.9 ; Hyperlipidemia, unspecified hyperlipidemia E78.5 and Arthralgia, unspecified joint M25.50 [place] [address] [address] Aug, Hypertriglyceridemia E78.1 [place] [address] [address] May, Anxiety F41.9 [place] [address] [address] Apr, Hyperlipidemia, unspecified hyperlipidem ia E78.5 ; Gastroesophageal reflux disease without esophagitis K21.9 ; Forgetfulness R68.89 ; Essential hypertension I10 and Anxiety F41.9 [place] [address] [address] 14 Apr, 2017 Hypertriglyceridemia E78.1 [place] [address] [address] Mar, Medicare annual wellness visit, subseque nt Z00.00 ; Hyperlipidemia, unspecified hyperlipidemia E78.5 and Essential hypertension I10 [place] [address] [address] Mar, Forgetfulness R68.89 ; Fatigue, unspecif ied type R53.83 and Essential hypertension I10 [place] [address] [address] Mar, Primary osteoarthritis, left wrist M19.0 32 and Strain of left trapezius muscle, initial encounter S46.812A [place] [address] [address] Feb, Left wrist pain M25.532 [place] [address] [address] Feb, Left wrist pain M25.532 [place] [address] [address] December, Hypertriglyceridemia E78.1 ; Encounter f or immunization Z23 ; Forgetfulness R68.89 and Fatigue, unspecified type R53.83 [place] [address] [address] Jun, Forgetfulness R68.89 and Rhinitis, unspe cified type J31.0 [place] [address] [address] May, [place] [address] [address] May, Hypoxemia R09.02 ; Memory loss R41.3 ; A rthralgia, unspecified joint M25.50 and Rhinitis, unspecified type J31.0 [place] [address] [address] Mar, Vertigo R42 ; Orthostatic hypotension I9 5.1 and Chronic gastritis without bleeding, unspecified gastritis type K29.50 [place] [address] [address] Feb, [place] [address] [address] Feb, Forgetfulness R68.89 [place] [address] [address] Jan, [address] [address] Jan, Gastroesophageal reflux disease without esophagitis K21.9 ; Fatigue, unspecified type R53.83 ; Weakness R53.1 ; Forgetfulness R68.89 ; Hyperlipidemia, unspecified hyperlipidemia E78.5 and Hearing abnormally acute, unspecified laterality H93.[address] [address] Oct, [address] [address] Aug, Upper respiratory tract infection, unspe cified type J06.[address] [address] Aug, [address] [address] Jun, Acute idiopathic gout, unspecified site M10.00 ; Encounter for immunization Z23 ; Hyperlipidemia, unspecified hyperlipidemia E78.5 ; Gastroesophageal reflux disease without esophagitis K21.9 and Fatigue, unspecified type R53.[address] [address] Jan, Esophageal reflux 530.81 and Irritable b owel syndrome 564.[address] [address] Jan, [address] [address] Jan, Gastritis 535.50 ; Hx of colonic polyp V 12.72 and Positional vertigo 386.[address] [address] Jan, [address] [address] 04 Jan, 2015 Dizziness 780.4 and Nausea & vomiting 78 7.01 [facility] [address] [id number] [place] [address] Nov, [facility] [address] [id number] [place] [address] 28 Nov, 2014 [facility] [address] [id number] [place] [address] 14 Nov, 2014 [facility] [address] [place] [id number] [place] [address] 13 Nov, 2014 [facility] [address] [id number] [place] [address] 16 Oct, 2014 [facility] [address] [place] [id number] [place] [address] Oct, [facility] [address] [id number] [place] [address] Oct, [facility] [address] [place] [id number] [place] [address] Aug, [facility] [address] [id number] [place] [address] Aug, [facility] [address] [place] [id number] [place] [address] Aug, [facility] [address] [id number] [place] [address] Jul, [facility] [address] [place] [id number] [place] [address] Jul, [facility] [address] [id number] [place] [address] Jul, [facility] [address] [id number] [place] [address] Jul, [facility] [address] [id number] [place] [address] Jul, [facility] [address] [id number] [place] [address] 08 Jul, 2014 [facility] [address] [id number] [place] [address] Jul, [facility] [address] [facility] [id number] [place] [address] Jul, [facility] [address] [facility] [id number] [place] [address] Jul, [facility] [address] [id number] [place] [address] Jul, [facility] [address] [id number] [place] [address] Jul, [facility] [address] [id number] [place] [address] Jun, [facility] [address] [id number] [place] [address] Jun, [facility] [address] [id number] [place] [address] Jun, [facility] [address] [id number] [place] [address] Jun, [facility] [address] [id number] [place] [address] Apr, [facility] [address] [id number] [place] [address] Apr, [facility] [address] [id number] [place] [address] Apr, [facility] [address] [id number] [place] [address] Apr, [facility] [address] [id number] [place] [address] Feb, [facility] [address] [id number] [place] [address] Feb, [facility] [address] [id number] [place] [address] Feb, [facility] [address] [id number] [place] [address] Feb, [facility] [address] [id number] [place] [address] Jan, [facility] [address] [id number] [place] [address] Jan, [facility] [address] [id number] [place] [address] Jan, [facility] [address] [id number] [place] [address] Jan, [facility] [address] [id number] [place] [address] December, [facility] [address] [id number] [place] [address] December, [facility] [address] [id number] [place] [address] December, [facility] [address] [id number] [place] [address] December, [facility] [address] [id number] [place] [address] December, [facility] [address] [id number] [place] [address] December, [facility] [address] [id number] [place] [address] Oct, [facility] [address] [id number] [place] [address] Oct, [facility] [address] [id number] [place] [address] Sep, [facility] [address] [id number] [place] [address] Sep, [facility] [address] [id number] [place] [address] Aug, [facility] [address] [id number] [place] [address] Aug, [facility] [address] [id number] [place] [address] Jul, [facility] [address] [facility] [id number] [place] [address] Jul, [facility] [address] [facility] [id number] [place] [address] May, [facility] [address] [id number] [place] [address] May, [facility] [address] [id number] [place] [address] May, [facility] [address] [facility] [id number] [place] [address] Apr, [facility] [address] [id number] [place] [address] Feb, [facility] [address] [id number] [place] [address] Feb, [facility] [address] [id number] [place] [address] Feb, [facility] [address] [id number] [place] [address] Feb, [facility] [address] [id number] [place] [address] Jan, [facility] [address] [id number] [place] [address] Jan, [facility] [address] [id number] [place] [address] December, [facility] [address] [id number] [place] [address] Nov, [facility] [address] [id number] [place] [address] Nov, [facility] [address] [id number] [place] [address] Oct, [facility] [address] [id number] [place] [address] Oct, [facility] [address] [id number] [place] [address] Oct, [facility] [address] [id number] [place] [address] Aug, [facility] [address] [id number] [place] [address] Aug, [facility] [address] [id number] [place] [address] Jul, [facility] [address] [id number] [place] [address] Jul, [facility] [address] [id number] [place] [address] Jul, [facility] [address] [id number] [place] [address] Jul, [facility] [address] [id number] [place] [address] Jun, [facility] [address] [id number] [place] [address] Jun, [facility] [address] [id number] [place] [address] May, [facility] [address] [id number] [place] [address] Mar, [facility] [address] [id number] [place] [address] Mar, [facility] [address] [id number] [place] [address] Jan, [facility] [address] [id number] [place] [address] Jan, [facility] [address] [id number] [place] [address] December, [facility] [address] [id number] [place] [address] December, [facility] [address] [id number] [place] [address] December, [facility] [address] [id number] [place] [address] 17 Dec, 2011 [facility] [address] [place] [id number] [place] [address] 17 Sep, 2011 [facility] [address] [id number] [place] [address] 13 Sep, 2011 [facility] [address] [place] [id number] [place] [address] 14 Jun, 2011 [facility] [address] [place] [id number] [place] [address] 14 Jun, 2011 [facility] [address] [place] [id number] [place] [address] 18 May, 2011 [facility] [address] [place] [id number] [place] [address] Feb, [facility] [address] [place] [id number] [place] [address] Mar, [facility] [address] [place] [id number] [place] [address] Nov, [facility] [address] [place] [id number] [place] [address] Sep, [facility] [address] [place] [id number] [place] [address] Jun, [facility] [address] [place] [id number] [place] [address] Jun, [facility] [address] [place] [id number] [place] [address] May, [facility] [address] [place] [id number] [place] [address] Mar, [facility] [address] [place] [id number] [place] [address] December, IMMUNIZATIONS No Known Immunizations SOCIAL HISTORY Never Assessed REASON FOR VISIT PLAN OF CARE VITAL SIGNS MEDICATIONS Unknown Medications RESULTS No Results PROCEDURES Procedure Date Ordered Result Body Site LIPID PANEL January 14, 2014 COMPREHEN METABOLIC PANEL January 14, 2014 VENIPUNCT, ROUTINE* January 14, 2014 INSTRUCTIONS MEDICATIONS ADMINISTERED No Known Medications [...]
--- OUTSIDE RECORDS SUMMARY | 2020-02-28 02:34 | XMS REPORT ---
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 Active 998953747 Problem Essential hypertension I10 Active 75494662 Problem Stage 3 chronic kidney disease N18.3 Active 186936370 Problem Memory loss R41.3 Active 56952562 Problem Primary insomnia F51.01 Active 397 2004 Problem Nocturnal hypoxia G47.34 Active 38 4574049 Problem Hyperlipidemia, unspecified hyperlipidemia E78.5 Active 27219390 Problem Gastroesophageal reflux disease without esophagitis K21.9 Active 093593916 Problem Anxiety F41.9 Active 53028470 Problem Other chronic gastritis without hemorrhage K29.50 Active 2849336 ALLERGIES No Information ENCOUNTERS Encounter Location Date Diagnosis [place] [address] [address] Nov, [facility] [address] [address] Oct, [place] [address] [address] Oct, [place] [address] [address] Oct, CN palsy, left eye H49.22 ; Primary i nsomnia F51.01 ; Pulsatile tinnitus of left ear H93.A2 and Seborrheic keratosis L82.1 [place] [address] [address] Aug, CN palsy, left eye H49.22 ; Essential hypertension I10 ; Arthralgia, unspecified joint M25.50 and Primary insomnia F51.01 [place] [address] [address] Jul, Cranial nerve palsy G52.9 [place] [address] [address] Jul, Cranial nerve palsy G52.9 ; Stage 3 broke handler melvina kidney disease N18.3 ; Family history of embolic stroke Z82.3 and Numbness of left hand R20.0 [place] [address] [address] Jun, Anxiety F41.9 and Essential hypertension I10 [place] [address] [address] Jun, [place] [address] [address] Jun, Essential hypertension I10 [place] [address] [address] May, [place] [address] [address] May, Herpes zoster without complication B02.9 and Stage 3 chronic kidney disease N18.3 [place] [address] [address] Mar, Essential hypertension I10 [place] [address] [address] Feb, [place] [address] [address] Feb, [place] [address] [address] Feb, Essential hypertension I10 and Acute mid line low back pain without sciatica M54.5 [facility] [address] [facility] [id number] [place] [address] December, Insect bite (nonvenomous) of lower back and pelvis, initial encounter S30.860A and Bitten or stung by nonvenomous insect and other nonvenomous arthropods, initial encounter W57.XXXA [place] [address] [address] Nov, Pleurisy R09.1 [place] [address] [address] Nov, [place] [address] [address] Oct, Hypoxemia R09.02 and Fatigue, unspecifie d type R53.83 [place] [address] [address] Sep, Other chronic gastritis without hemorrha ge K29.50 ; Gastroesophageal reflux disease without esophagitis K21.9 ; Hyperlipidemia, unspecified hyperlipidemia E78.5 and Arthralgia, unspecified joint M25.50 [place] [address] [address] Aug, Hypertriglyceridemia E78.1 [place] [address] [address] May, Anxiety F41.9 [place] [address] [address] Apr, Hyperlipidemia, unspecified hyperlipidem ia E78.5 ; Gastroesophageal reflux disease without esophagitis K21.9 ; Forgetfulness R68.89 ; Essential hypertension I10 and Anxiety F41.9 [place] [address] [address] 14 Apr, 2017 Hypertriglyceridemia E78.1 [place] [address] [address] Mar, Medicare annual wellness visit, subseque nt Z00.00 ; Hyperlipidemia, unspecified hyperlipidemia E78.5 and Essential hypertension I10 [place] [address] [address] Mar, Forgetfulness R68.89 ; Fatigue, unspecif ied type R53.83 and Essential hypertension I10 [place] [address] [address] Mar, Primary osteoarthritis, left wrist M19.0 32 and Strain of left trapezius muscle, initial encounter S46.812A [place] [address] [address] Feb, Left wrist pain M25.532 [place] [address] [address] Feb, Left wrist pain M25.532 [place] [address] [address] December, Hypertriglyceridemia E78.1 ; Encounter f or immunization Z23 ; Forgetfulness R68.89 and Fatigue, unspecified type R53.83 [place] [address] [address] Jun, Forgetfulness R68.89 and Rhinitis, unspe cified type J31.0 [place] [address] [address] May, [place] [address] [address] May, Hypoxemia R09.02 ; Memory loss R41.3 ; A rthralgia, unspecified joint M25.50 and Rhinitis, unspecified type J31.0 [place] [address] [address] Mar, Vertigo R42 ; Orthostatic hypotension I9 5.1 and Chronic gastritis without bleeding, unspecified gastritis type K29.50 [place] [address] [address] Feb, [place] [address] [address] Feb, Forgetfulness R68.89 [place] [address] [address] Jan, [address] [address] Jan, Gastroesophageal reflux disease without esophagitis K21.9 ; Fatigue, unspecified type R53.83 ; Weakness R53.1 ; Forgetfulness R68.89 ; Hyperlipidemia, unspecified hyperlipidemia E78.5 and Hearing abnormally acute, unspecified laterality H93.[address] [address] Oct, [address] [address] Aug, Upper respiratory tract infection, unspe cified type J06.[address] [address] Aug, [address] [address] Jun, Acute idiopathic gout, unspecified site M10.00 ; Encounter for immunization Z23 ; Hyperlipidemia, unspecified hyperlipidemia E78.5 ; Gastroesophageal reflux disease without esophagitis K21.9 and Fatigue, unspecified type R53.[address] [address] Jan, Esophageal reflux 530.81 and Irritable b owel syndrome 564.[address] [address] Jan, [address] [address] Jan, Gastritis 535.50 ; Hx of colonic polyp V 12.72 and Positional vertigo 386.[address] [address] Jan, [address] [address] 04 Jan, 2015 Dizziness 780.4 and Nausea & vomiting 78 7.01 [facility] [address] [id number] [place] [address] Nov, [facility] [address] [id number] [place] [address] 28 Nov, 2014 [facility] [address] [id number] [place] [address] 14 Nov, 2014 [facility] [address] [place] [id number] [place] [address] 13 Nov, 2014 [facility] [address] [id number] [place] [address] 16 Oct, 2014 [facility] [address] [place] [id number] [place] [address] Oct, [facility] [address] [id number] [place] [address] Oct, [facility] [address] [place] [id number] [place] [address] Aug, [facility] [address] [id number] [place] [address] Aug, [facility] [address] [place] [id number] [place] [address] Aug, [facility] [address] [id number] [place] [address] Jul, [facility] [address] [place] [id number] [place] [address] Jul, [facility] [address] [id number] [place] [address] Jul, [facility] [address] [id number] [place] [address] Jul, [facility] [address] [id number] [place] [address] Jul, [facility] [address] [id number] [place] [address] 08 Jul, 2014 [facility] [address] [id number] [place] [address] Jul, [facility] [address] [facility] [id number] [place] [address] Jul, [facility] [address] [facility] [id number] [place] [address] Jul, [facility] [address] [id number] [place] [address] Jul, [facility] [address] [id number] [place] [address] Jul, [facility] [address] [id number] [place] [address] Jun, [facility] [address] [id number] [place] [address] Jun, [facility] [address] [id number] [place] [address] Jun, [facility] [address] [id number] [place] [address] Jun, [facility] [address] [id number] [place] [address] Apr, [facility] [address] [id number] [place] [address] Apr, [facility] [address] [id number] [place] [address] Apr, [facility] [address] [id number] [place] [address] Apr, [facility] [address] [id number] [place] [address] Feb, [facility] [address] [id number] [place] [address] Feb, [facility] [address] [id number] [place] [address] Feb, [facility] [address] [id number] [place] [address] Feb, [facility] [address] [id number] [place] [address] Jan, [facility] [address] [id number] [place] [address] Jan, [facility] [address] [id number] [place] [address] Jan, [facility] [address] [id number] [place] [address] Jan, [facility] [address] [id number] [place] [address] December, [facility] [address] [id number] [place] [address] December, [facility] [address] [id number] [place] [address] December, [facility] [address] [id number] [place] [address] December, [facility] [address] [id number] [place] [address] December, [facility] [address] [id number] [place] [address] December, [facility] [address] [id number] [place] [address] Oct, [facility] [address] [id number] [place] [address] Oct, [facility] [address] [id number] [place] [address] Sep, [facility] [address] [id number] [place] [address] Sep, [facility] [address] [id number] [place] [address] Aug, [facility] [address] [id number] [place] [address] Aug, [facility] [address] [id number] [place] [address] Jul, [facility] [address] [facility] [id number] [place] [address] Jul, [facility] [address] [facility] [id number] [place] [address] May, [facility] [address] [id number] [place] [address] May, [facility] [address] [id number] [place] [address] May, [facility] [address] [facility] [id number] [place] [address] Apr, [facility] [address] [id number] [place] [address] Feb, [facility] [address] [id number] [place] [address] Feb, [facility] [address] [id number] [place] [address] Feb, [facility] [address] [id number] [place] [address] Feb, [facility] [address] [id number] [place] [address] Jan, [facility] [address] [id number] [place] [address] Jan, [facility] [address] [id number] [place] [address] December, [facility] [address] [id number] [place] [address] Nov, [facility] [address] [id number] [place] [address] Nov, [facility] [address] [id number] [place] [address] Oct, [facility] [address] [id number] [place] [address] Oct, [facility] [address] [id number] [place] [address] Oct, [facility] [address] [id number] [place] [address] Aug, [facility] [address] [id number] [place] [address] Aug, [facility] [address] [id number] [place] [address] Jul, [facility] [address] [id number] [place] [address] Jul, [facility] [address] [id number] [place] [address] Jul, [facility] [address] [id number] [place] [address] Jul, [facility] [address] [id number] [place] [address] Jun, [facility] [address] [id number] [place] [address] Jun, [facility] [address] [id number] [place] [address] May, [facility] [address] [id number] [place] [address] Mar, [facility] [address] [id number] [place] [address] Mar, [facility] [address] [id number] [place] [address] Jan, [facility] [address] [id number] [place] [address] Jan, [facility] [address] [id number] [place] [address] December, [facility] [address] [id number] [place] [address] December, [facility] [address] [id number] [place] [address] December, [facility] [address] [place] [id number] [place] [address] 17 Dec, 2011 [facility] [address] [place] [id number] [place] [address] 17 Sep, 2011 [facility] [address] [place] [id number] [place] [address] 13 Sep, 2011 [facility] [address] [place] [id number] [place] [address] 14 Jun, 2011 [facility] [address] [place] [id number] [place] [address] 14 Jun, 2011 [facility] [address] [place] [id number] [place] [address] 18 May, 2011 [facility] [address] [place] [id number] [place] [address] Feb, [facility] [address] [place] [id number] [place] [address] Mar, [facility] [address] [place] [id number] [place] [address] Nov, [facility] [address] [place] [id number] [place] [address] Sep, [facility] [address] [place] [id number] [place] [address] Jun, [facility] [address] [place] [id number] [place] [address] Jun, [facility] [address] [place] [id number] [place] [address] May, [facility] [address] [place] [id number] [place] [address] Mar, [facility] [address] [place] [id number] [place] [address] December, IMMUNIZATIONS No Known Immunizations SOCIAL HISTORY [...]
--- OUTSIDE RECORDS SUMMARY | 2020-02-28 02:34 | XMS REPORT ---
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 Active 985850082 Problem Essential hypertension I10 Active 20407925 Problem Stage 3 chronic kidney disease N18.3 Active 621792851 Problem Memory loss R41.3 Active 94765312 Problem Primary insomnia F51.01 Active 397 2004 Problem Nocturnal hypoxia G47.34 Active 38 0373263 Problem Hyperlipidemia, unspecified hyperlipidemia E78.5 Active 60183269 Problem Gastroesophageal reflux disease without esophagitis K21.9 Active 454540391 Problem Anxiety F41.9 Active 06076454 Problem Other chronic gastritis without hemorrhage K29.50 Active 4915355 ALLERGIES No Information ENCOUNTERS Encounter Location Date Diagnosis [place] [address] [address] Nov, [facility] [address] [address] Oct, [place] [address] [address] Oct, [place] [address] [address] Oct, CN palsy, left eye H49.22 ; Primary i nsomnia F51.01 ; Pulsatile tinnitus of left ear H93.A2 and Seborrheic keratosis L82.1 [place] [address] [address] Aug, CN palsy, left eye H49.22 ; Essential hypertension I10 ; Arthralgia, unspecified joint M25.50 and Primary insomnia F51.01 [place] [address] [address] Jul, Cranial nerve palsy G52.9 [place] [address] [address] Jul, Cranial nerve palsy G52.9 ; Stage 3 hog ringer melvina kidney disease N18.3 ; Family history of embolic stroke Z82.3 and Numbness of left hand R20.0 [place] [address] [address] Jun, Anxiety F41.9 and Essential hypertension I10 [place] [address] [address] Jun, [place] [address] [address] Jun, Essential hypertension I10 [place] [address] [address] May, [place] [address] [address] May, Herpes zoster without complication B02.9 and Stage 3 chronic kidney disease N18.3 [place] [address] [address] Mar, Essential hypertension I10 [place] [address] [address] Feb, [place] [address] [address] Feb, [place] [address] [address] Feb, Essential hypertension I10 and Acute mid line low back pain without sciatica M54.5 [facility] [address] [facility] [id number] [place] [address] December, Insect bite (nonvenomous) of lower back and pelvis, initial encounter S30.860A and Bitten or stung by nonvenomous insect and other nonvenomous arthropods, initial encounter W57.XXXA [place] [address] [address] Nov, Pleurisy R09.1 [place] [address] [address] Nov, [place] [address] [address] Oct, Hypoxemia R09.02 and Fatigue, unspecifie d type R53.83 [place] [address] [address] Sep, Other chronic gastritis without hemorrha ge K29.50 ; Gastroesophageal reflux disease without esophagitis K21.9 ; Hyperlipidemia, unspecified hyperlipidemia E78.5 and Arthralgia, unspecified joint M25.50 [place] [address] [address] Aug, Hypertriglyceridemia E78.1 [place] [address] [address] May, Anxiety F41.9 [place] [address] [address] Apr, Hyperlipidemia, unspecified hyperlipidem ia E78.5 ; Gastroesophageal reflux disease without esophagitis K21.9 ; Forgetfulness R68.89 ; Essential hypertension I10 and Anxiety F41.9 [place] [address] [address] 14 Apr, 2017 Hypertriglyceridemia E78.1 [place] [address] [address] Mar, Medicare annual wellness visit, subseque nt Z00.00 ; Hyperlipidemia, unspecified hyperlipidemia E78.5 and Essential hypertension I10 [place] [address] [address] Mar, Forgetfulness R68.89 ; Fatigue, unspecif ied type R53.83 and Essential hypertension I10 [place] [address] [address] Mar, Primary osteoarthritis, left wrist M19.0 32 and Strain of left trapezius muscle, initial encounter S46.812A [place] [address] [address] Feb, Left wrist pain M25.532 [place] [address] [address] Feb, Left wrist pain M25.532 [place] [address] [address] December, Hypertriglyceridemia E78.1 ; Encounter f or immunization Z23 ; Forgetfulness R68.89 and Fatigue, unspecified type R53.83 [place] [address] [address] Jun, Forgetfulness R68.89 and Rhinitis, unspe cified type J31.0 [place] [address] [address] May, [place] [address] [address] May, Hypoxemia R09.02 ; Memory loss R41.3 ; A rthralgia, unspecified joint M25.50 and Rhinitis, unspecified type J31.0 [place] [address] [address] Mar, Vertigo R42 ; Orthostatic hypotension I9 5.1 and Chronic gastritis without bleeding, unspecified gastritis type K29.50 [place] [address] [address] Feb, [place] [address] [address] Feb, Forgetfulness R68.89 [place] [address] [address] Jan, [address] [address] Jan, Gastroesophageal reflux disease without esophagitis K21.9 ; Fatigue, unspecified type R53.83 ; Weakness R53.1 ; Forgetfulness R68.89 ; Hyperlipidemia, unspecified hyperlipidemia E78.5 and Hearing abnormally acute, unspecified laterality H93.[address] [address] Oct, [address] [address] Aug, Upper respiratory tract infection, unspe cified type J06.[address] [address] Aug, [address] [address] Jun, Acute idiopathic gout, unspecified site M10.00 ; Encounter for immunization Z23 ; Hyperlipidemia, unspecified hyperlipidemia E78.5 ; Gastroesophageal reflux disease without esophagitis K21.9 and Fatigue, unspecified type R53.[address] [address] Jan, Esophageal reflux 530.81 and Irritable b owel syndrome 564.[address] [address] Jan, [address] [address] Jan, Gastritis 535.50 ; Hx of colonic polyp V 12.72 and Positional vertigo 386.[address] [address] Jan, [address] [address] 04 Jan, 2015 Dizziness 780.4 and Nausea & vomiting 78 7.01 [facility] [address] [id number] [place] [address] Nov, [facility] [address] [id number] [place] [address] 28 Nov, 2014 [facility] [address] [id number] [place] [address] 14 Nov, 2014 [facility] [address] [place] [id number] [place] [address] 13 Nov, 2014 [facility] [address] [id number] [place] [address] 16 Oct, 2014 [facility] [address] [place] [id number] [place] [address] Oct, [facility] [address] [id number] [place] [address] Oct, [facility] [address] [place] [id number] [place] [address] Aug, [facility] [address] [id number] [place] [address] Aug, [facility] [address] [place] [id number] [place] [address] Aug, [facility] [address] [id number] [place] [address] Jul, [facility] [address] [place] [id number] [place] [address] Jul, [facility] [address] [id number] [place] [address] Jul, [facility] [address] [id number] [place] [address] Jul, [facility] [address] [id number] [place] [address] Jul, [facility] [address] [id number] [place] [address] 08 Jul, 2014 [facility] [address] [id number] [place] [address] Jul, [facility] [address] [facility] [id number] [place] [address] Jul, [facility] [address] [facility] [id number] [place] [address] Jul, [facility] [address] [id number] [place] [address] Jul, [facility] [address] [id number] [place] [address] Jul, [facility] [address] [id number] [place] [address] Jun, [facility] [address] [id number] [place] [address] Jun, [facility] [address] [id number] [place] [address] Jun, [facility] [address] [id number] [place] [address] Jun, [facility] [address] [id number] [place] [address] Apr, [facility] [address] [id number] [place] [address] Apr, [facility] [address] [id number] [place] [address] Apr, [facility] [address] [id number] [place] [address] Apr, [facility] [address] [id number] [place] [address] Feb, [facility] [address] [id number] [place] [address] Feb, [facility] [address] [id number] [place] [address] Feb, [facility] [address] [id number] [place] [address] Feb, [facility] [address] [id number] [place] [address] Jan, [facility] [address] [id number] [place] [address] Jan, [facility] [address] [id number] [place] [address] Jan, [facility] [address] [id number] [place] [address] Jan, [facility] [address] [id number] [place] [address] December, [facility] [address] [id number] [place] [address] December, [facility] [address] [id number] [place] [address] December, [facility] [address] [id number] [place] [address] December, [facility] [address] [id number] [place] [address] December, [facility] [address] [id number] [place] [address] December, [facility] [address] [id number] [place] [address] Oct, [facility] [address] [id number] [place] [address] Oct, [facility] [address] [id number] [place] [address] Sep, [facility] [address] [id number] [place] [address] Sep, [facility] [address] [id number] [place] [address] Aug, [facility] [address] [id number] [place] [address] Aug, [facility] [address] [id number] [place] [address] Jul, [facility] [address] [facility] [id number] [place] [address] Jul, [facility] [address] [facility] [id number] [place] [address] May, [facility] [address] [id number] [place] [address] May, [facility] [address] [id number] [place] [address] May, [facility] [address] [facility] [id number] [place] [address] Apr, [facility] [address] [id number] [place] [address] Feb, [facility] [address] [id number] [place] [address] Feb, [facility] [address] [id number] [place] [address] Feb, [facility] [address] [id number] [place] [address] Feb, [facility] [address] [id number] [place] [address] Jan, [facility] [address] [id number] [place] [address] Jan, [facility] [address] [id number] [place] [address] December, [facility] [address] [id number] [place] [address] Nov, [facility] [address] [id number] [place] [address] Nov, [facility] [address] [id number] [place] [address] Oct, [facility] [address] [id number] [place] [address] Oct, [facility] [address] [id number] [place] [address] Oct, [facility] [address] [id number] [place] [address] Aug, [facility] [address] [id number] [place] [address] Aug, [facility] [address] [id number] [place] [address] Jul, [facility] [address] [id number] [place] [address] Jul, [facility] [address] [id number] [place] [address] Jul, [facility] [address] [id number] [place] [address] Jul, [facility] [address] [id number] [place] [address] Jun, [facility] [address] [id number] [place] [address] Jun, [facility] [address] [id number] [place] [address] May, [facility] [address] [id number] [place] [address] Mar, [facility] [address] [id number] [place] [address] Mar, [facility] [address] [id number] [place] [address] Jan, [facility] [address] [id number] [place] [address] Jan, [facility] [address] [id number] [place] [address] December, [facility] [address] [id number] [place] [address] December, [facility] [address] [id number] [place] [address] December, [facility] [address] [place] [id number] [place] [address] 17 Dec, 2011 [facility] [address] [place] [id number] [place] [address] 17 Sep, 2011 [facility] [address] [place] [id number] [place] [address] 13 Sep, 2011 [facility] [address] [place] [id number] [place] [address] 14 Jun, 2011 [facility] [address] [place] [id number] [place] [address] 14 Jun, 2011 [facility] [address] [place] [id number] [place] [address] 18 May, 2011 [facility] [address] [place] [id number] [place] [address] Feb, [facility] [address] [place] [id number] [place] [address] Mar, [facility] [address] [place] [id number] [place] [address] Nov, [facility] [address] [place] [id number] [place] [address] Sep, [facility] [address] [place] [id number] [place] [address] Jun, [facility] [address] [place] [id number] [place] [address] Jun, [facility] [address] [place] [id number] [place] [address] May, [facility] [address] [place] [id number] [place] [address] Mar, [facility] [address] [place] [id number] [place] [address] December, IMMUNIZATIONS No Known Immunizations SOCIAL HISTORY [...]
--- OUTSIDE RECORDS SUMMARY | 2020-02-28 02:34 | XMS REPORT ---
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 Active 563167336 Problem Essential hypertension I10 Active 50099923 Problem Stage 3 chronic kidney disease N18.3 Active 209779591 Problem Memory loss R41.3 Active 98502976 Problem Primary insomnia F51.01 Active 397 2004 Problem Nocturnal hypoxia G47.34 Active 38 1290393 Problem Hyperlipidemia, unspecified hyperlipidemia E78.5 Active 56203890 Problem Gastroesophageal reflux disease without esophagitis K21.9 Active 474056003 Problem Anxiety F41.9 Active 88600253 Problem Other chronic gastritis without hemorrhage K29.50 Active 6936124 ALLERGIES No Information ENCOUNTERS Encounter Location Date Diagnosis [place] [id number] [facility] [id number] [address] [place] [id number] Nov, [facility] [address] [facility] [id number] [address] [place] [id number] Oct, [place] [address] [facility] [id number] [address] [place] [id number] 18 Oct, 2018 [place] [address] [place] [id number] [address] [place] [id number] 11 Oct, 2018 CN palsy, left eye H49.22 ; Primary insomnia F51.01 ; Pulsatile tinnitus of left ear H93.A2 and Seborrheic keratosis L82.1 [facility] [address] [place] [id number] [address] [place] [id number] Aug, CN palsy, left eye H49.22 ; Essential hypertension I10 ; Arthralgia, unspecified joint M25.50 and Primary insomnia F51.01 [facility] [address] [place] [id number] [place] [address] Jul, Cranial nerve palsy G52.9 [place] [address] [address] Jul, Cranial nerve palsy G52.9 ; Stage 3 chronic kidney disease N18.3 ; Family history of embolic stroke Z82.3 and Numbness of left hand R20.0 [place] [address] [place] [id number] [place] [address] Jun, Anxiety F41.9 and Essential hypertension I10 [place] [address] [address] Jun, [place] [address] [address] Jun, Essential hypertension I10 [place] [address] [address] May, [place] [address] [address] May, Herpes zoster without compli cation B02.9 and Stage 3 chronic kidney disease N18.3 [facility] [address] [place] [id number] [address] [place] [address] Mar, Essential hypertension I10 [place] [address] [address] Feb, [facility] [address] [place] [id number] [place] [address] Feb, [place] [address] [address] Feb, Essential hypertension I10 a nd Acute midline low back pain without sciatica M54.5 [facility] [address] [address] December, Insect bite (nonvenomous) of lower back and pelvis, initial encounter S30.860A and Bitten or stung by nonvenomous insect and other nonvenomous arthropods, initial encounter W57.XXXA [facility] [address] [address] Nov, Pleurisy R09.1 [place] [address] [address] Nov, [facility] [address] [address] Oct, Hypoxemia R09.02 and Fatigue , unspecified type R53.83 [place] [address] [address] Sep, Other chronic gastritis with out hemorrhage K29.50 ; Gastroesophageal reflux disease without esophagitis K21.9 ; Hyperlipidemia, unspecified hyperlipidemia E78.5 and Arthralgia, unspecified joint M25.50 [facility] [address] [address] Aug, Hypertriglyceridemia E78.1 [place] [address] [address] 02 May, 2017 Anxiety F41.9 [place] [address] [address] 21 Apr, 2017 Hyperlipidemia, unspecified hyperlipidemia E78.5 ; Gastroesophageal reflux disease without esophagitis K21.9 ; Forgetfulness R68.89 ; Essential hypertension I10 and Anxiety F41.9 [facility] [address] [address] 14 Apr, 2017 Hypertriglyceridemia E78.1 [place] [address] [address] Mar, Medicare annual wellness vis it, subsequent Z00.00 ; Hyperlipidemia, unspecified hyperlipidemia E78.5 and Essential hypertension I10 [place] [address] [address] Mar, Forgetfulness R68.89 ; Fatig ue, unspecified type R53.83 and Essential hypertension I10 [place] [address] [address] Mar, Primary osteoarthritis, 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 and Strain of left trapezius muscle, initial encounter S46.812A [place] [address] [address] Feb, Left wrist pain M25.532 [place] [address] [address] Feb, Left wrist pain M25.532 [place] [address] [address] December, Hypertriglyceridemia E78.1 ; Encounter for immunization Z23 ; Forgetfulness R68.89 and Fatigue, unspecified type R53.83 [place] [address] [address] Jun, Forgetfulness R68.89 and Rhi nitis, unspecified type J31.0 [place] [address] [address] May, [place] [address] [address] May, Hypoxemia R09.02 ; Memory lo ss R41.3 ; Arthralgia, unspecified joint M25.50 and Rhinitis, unspecified type J31.0 [place] [address] [place] [id number] [address] [place] [address] Mar, Vertigo R42 ; Orthostatic hy potension I95.1 and Chronic gastritis without bleeding, unspecified gastritis type K29.50 [place] [address] [place] [id number] [address] [place] [address] Feb, [place] [address] [address] Feb, Forgetfulness R68.89 [place] [address] [place] [id number] [address] Jan, [place] [address] [address] Jan, Gastroesophageal reflux dise ase without esophagitis K21.9 ; Fatigue, unspecified type R53.83 ; Weakness R53.1 ; Forgetfulness R68.89 ; Hyperlipidemia, unspecified hyperlipidemia E78.5 and Hearing abnormally acute, unspecified laterality H93.239 [place] [address] [address] Oct, [place] [address] [address] Aug, Upper respiratory tract infe ction, unspecified type J06.9 [place] [address] [address] Aug, [place] [address] [address] Jun, Acute idiopathic gout, unspe cified site M10.00 ; Encounter for immunization Z23 ; Hyperlipidemia, unspecified hyperlipidemia E78.5 ; Gastroesophageal reflux disease without esophagitis K21.9 and Fatigue, unspecified type R53.83 [place] [address] [place] [id number] [place] [address] 17 Jan, 2015 Esophageal reflux 530.81 and Irritable bowel syndrome 564.1 [place] [address] [place] [id number] [address] [place] [address] Jan, [place] [address] [place] [id number] [address] [place] [address] Jan, Gastritis 535.50 ; Hx of col onic polyp V12.72 and Positional vertigo 386.11 [facility] [address] [id number] [address] [place] [address] Jan, [facility] [address] [facility] [id number] [address] [place] [address] Jan, Dizziness 780.4 and Nausea & vomiting 787.01 [facility] [address] [id number] [address] [place] [address] Nov, [facility] [address] [id number] [address] [place] [address] Nov, [facility] [address] [facility] [id number] [address] [place] [address] Nov, [facility] [address] [facility] [id number] [address] [place] [address] Nov, [facility] [address] [facility] [id number] [address] [place] [address] Oct, [facility] [address] [id number] [address] [place] [address] Oct, [facility] [address] [facility] [id number] [address] [place] [address] Oct, [facility] [address] [facility] [id number] [address] [place] [id number] Aug, [facility] [address] [facility] [id number] [address] [place] [phone] Aug, [facility] [address] [id number] [address] [place] [address] Aug, [facility] [address] [facility] [id number] [address] [place] [address] Jul, [facility] [address] [facility] [id number] [address] [place] [id number] Jul, [facility] [address] [facility] [id number] [address] [place] [id number] Jul, [facility] [address] [id number] [address] [place] [address], [place] [address] Jul, [facility] [address] [id number] [address] [place] [address], [place] [address] Jul, [facility] [address] [id number] [address] [place] [address], [place] [address] Jul, [facility] [address] [id number] [address] [place] [address], [place] [address] Jul, [facility] [address] [id number] [address] [place] [address], [place] [address] Jul, [facility] [address] [id number] [address] [place] [address], [place] [address] Jul, [facility] [address] [id number] [address] [place] [address], [place] [address] Jul, [facility] [address] [id number] [address] [place] [address], [place] [address] Jul, [facility] [address] [id number] [address] [place] [address], [place] [address] Jun, [facility] [address] [id number] [address] [place] [address], [place] [address] 14 Jun, 2014 [facility] [address] [id number] [address] [place] [address], [place] [address] Jun, [facility] [address] [id number] [address] [place] [address], [place] [address] Jun, [facility] [address] [id number] [address] [place] [address], [place] [address] 17 Apr, 2014 [facility] [address] [id number] [address] [place] [address], [place] [address] 17 Apr, 2014 [facility] [address] [id number] [address] [place] [address], [place] [address] 17 Apr, 2014 [facility] [address] [id number] [address] [place] [address], [place] [address] Apr, [facility] [address] [id number] [address] [place] [address], [place] [address] Feb, [facility] [address] [id number] [address] [place] [address], [place] [address] Feb, [facility] [address] [id number] [address] [place] [address], [place] [address] Feb, [facility] [address] [id number] [address] [place] [address], [place] [address] Feb, [facility] [address] [id number] [address] [place] [address], [place] [address] Jan, [facility] [address] [id number] [address] [place] [address], [place] [address] Jan, [facility] [address] [id number] [address] [place] [address], [place] [address] Jan, [facility] [address] [id number] [address] [place] [address], [place] [address] Jan, [facility] [address] [id number] [address] [place] [address], [place] [address] December, [facility] [address] [id number] [address] [place] [address], [place] [address] December, [facility] [address] [id number] [address] [place] [address], [place] [address] December, [facility] [address] [id number] [address] [place] [address], [place] [address] December, [facility] [address] [id number] [address] [place] [address], [place] [address] December, [facility] [address] [id number] [address] [place] [address], [place] [address] December, [facility] [address] [id number] [address] [place] [address], [place] [address] Oct, [facility] [address] [id number] [address] [place] [address], [place] [address] Oct, [facility] [address] [id number] [address] [place] [address], [place] [address] Sep, [facility] [address] [id number] [address] [place] [address], [place] [address] Sep, [facility] [address] [id number] [address] [place] [address], [place] [address] Aug, [facility] [address] [id number] [address] [place] [address], [place] [address] Aug, [facility] [address] [id number] [address] [place] [address], [place] [address] Jul, [facility] [address] [id number] [address] [place] [address], [place] [address] Jul, [facility] [address] [id number] [address] [place] [address], [place] [address] May, [facility] [address] [id number] [address] [place] [address], [place] [address] May, [facility] [address] [id number] [address] [place] [address], [place] [address] May, [facility] [address] [id number] [address] [place] [address], [place] [address] Apr, [facility] [address] [id number] [address] [place] [address], [place] [address] Feb, [facility] [address] [id number] [address] [place] [address], [place] [address] Feb, [facility] [address] [id number] [address] [place] [address], [place] [address] Feb, [facility] [address] [id number] [address] [place] [address], [place] [address] Feb, [facility] [address] [id number] [address] [place] [address], [place] [address] Jan, [facility] [address] [id number] [address] [place] [address], [place] [address] Jan, [facility] [address] [id number] [address] [place] [address], [place] [address] December, [facility] [address] [id number] [address] [place] [address], [place] [address] Nov, [facility] [address] [id number] [address] [place] [address], [place] [address] Nov, [facility] [address] [id number] [address] [place] [address], [place] [address] Oct, [facility] [address] [id number] [address] [place] [address], [place] [address] Oct, [facility] [address] [id number] [address] [place] [address], [place] [address] Oct, [facility] [address] [id number] [address] [place] [address], [place] [address] Aug, [facility] [address] [id number] [address] [place] [address], [place] [address] Aug, [facility] [address] [id number] [address] [place] [address], [place] [address] Jul, [facility] [address] [id number] [address] [place] [address], [place] [address] Jul, [facility] [address] [id number] [address] [place] [address], [place] [address] Jul, [facility] [address] [id number] [address] [place] [address], [place] [address] Jul, [facility] [address] [id number] [address] [place] [address], [place] [address] Jun, [facility] [address] [id number] [address] [place] [address], [place] [address] Jun, [facility] [address] [id number] [address] [place] [address], [place] [address] May, [facility] [address] [id number] [address] [place] [address], [place] [address] Mar, [facility] [address] [id number] [address] [place] [address], [place] [address] Mar, [facility] [address] [id number] [address] [place] [address], [place] [address] Jan, [facility] [address] [id number] [address] [place] [address], [place] [address] Jan, [facility] [address] [id number] [address] [place] [address], [place] [address] December, [facility] [address] [id number] [address] [place] [address], [place] [address] December, [facility] [address] [id number] [address] [place] [address], [place] [address] December, [facility] [address] [id number] [address] [place] [address], [place] [address] December, [facility] [address] [id number] [address] [place] [address], [place] [address] Sep, [facility] [address] [id number] [address] [place] [address], [place] [address] Sep, [facility] [address] [id number] [address] [place] [address], [place] [address] Jun, [facility] [address] [id number] [address] [place] [address], [place] [address] 14 Jun, 2011 [facility] [address] [id number] [address] [place] [address], [place] [address] 18 May, 2011 [facility] [address] [id number] [address] [place] [address], [place] [address] Feb, [facility] [address] [id number] [address] [place] [address], [place] [address] Mar, [facility] [address] [facility] [id number] [address] [place] [address] Nov, [facility] [address] [facility] [id number] [address] [place] [id number] Sep, [facility] [address] [facility] [id number] [address] [place] [address] Jun, [facility] [address] [facility] [id number] [address] [place] [id number] Jun, [facility] [address] [facility] [id number] [address] [place] [address] May, [facility] [address] [facility] [id number] [address] [place] [id number] Mar, [facility] [address] [facility] [id number] [address] [place] [address] December, IMMUNIZATIONS No Known Immunizations SOCIAL HISTORY [...]
--- OUTSIDE RECORDS SUMMARY | 2020-02-28 02:34 | XMS REPORT ---
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 Active 125517116 Problem Essential hypertension I10 Active 48473216 Problem Stage 3 chronic kidney disease N18.3 Active 313990620 Problem Memory loss R41.3 Active 12765019 Problem Primary insomnia F51.01 Active 397 2004 Problem Nocturnal hypoxia G47.34 Active 38 6028534 Problem Hyperlipidemia, unspecified hyperlipidemia E78.5 Active 47456704 Problem Gastroesophageal reflux disease without esophagitis K21.9 Active 163035000 Problem Anxiety F41.9 Active 88150012 Problem Other chronic gastritis without hemorrhage K29.50 Active 0764838 ALLERGIES No Information ENCOUNTERS Encounter Location Date Diagnosis [place] [id number] [facility] [id number] [address] [place] [id number] Nov, [facility] [address] [facility] [id number] [address] [place] [address] Oct, [place] [address] [facility] [id number] [address] [place] [address] Oct, [place] [address] [place] [id number] [address] [place] [address] Oct, CN palsy, left eye H49.22 ; Primary insomnia F51.01 ; Pulsatile tinnitus of left ear H93.A2 and Seborrheic keratosis L82.1 [facility] [address] [place] [id number] [address] [place] [address] Aug, CN palsy, left eye H49.22 ; Essential hypertension I10 ; Arthralgia, unspecified joint M25.50 and Primary insomnia F51.01 [facility] [address] [place] [id number] [place] [address] Jul, Cranial nerve palsy G52.9 [facility] [address] [place] [id number] [place] [address] Jul, Cranial nerve palsy G52.9 ; Stage 3 chronic kidney disease N18.3 ; Family history of embolic stroke Z82.3 and Numbness of left hand R20.0 [place] [address] [place] [id number] [place] [address] Jun, Anxiety F41.9 and Essential hypertension I10 [place] [address] [address] Jun, [facility] [address] [place] [id number] [place] [address] Jun, Essential hypertension I10 [place] [address] [address] May, [facility] [address] [place] [id number] [place] [address] May, Herpes zoster without compli cation B02.9 and Stage 3 chronic kidney disease N18.3 [facility] [address] [place] [id number] [address] [place] [address] Mar, Essential hypertension I10 [facility] [address] [place] [id number] [place] [address] Feb, [facility] [address] [place] [id number] [address] [place] [address] Feb, [facility] [address] [address] Feb, Essential hypertension I10 a nd Acute midline low back pain without sciatica M54.5 [facility] [address] [address] December, Insect bite (nonvenomous) of lower back and pelvis, initial encounter S30.860A and Bitten or stung by nonvenomous insect and other nonvenomous arthropods, initial encounter W57.XXXA [facility] [address] [address] Nov, Pleurisy R09.1 [place] [address] [address] Nov, [facility] [address] [address] Oct, Hypoxemia R09.02 and Fatigue , unspecified type R53.83 [place] [address] [address] 12 Sep, 2017 Other chronic gastritis with out hemorrhage K29.50 ; Gastroesophageal reflux disease without esophagitis K21.9 ; Hyperlipidemia, unspecified hyperlipidemia E78.5 and Arthralgia, unspecified joint M25.50 [facility] [address] [address] Aug, Hypertriglyceridemia E78.1 [place] [address] [address] 02 May, 2017 Anxiety F41.9 [place] [address] [address] 21 Apr, 2017 Hyperlipidemia, unspecified hyperlipidemia E78.5 ; Gastroesophageal reflux disease without esophagitis K21.9 ; Forgetfulness R68.89 ; Essential hypertension I10 and Anxiety F41.9 [place] [address] [address] 14 Apr, 2017 Hypertriglyceridemia E78.1 [place] [address] [place] [address] Mar, Medicare annual wellness vis it, subsequent Z00.00 ; Hyperlipidemia, unspecified hyperlipidemia E78.5 and Essential hypertension I10 [place] [address] [address] Mar, Forgetfulness R68.89 ; Fatig ue, unspecified type R53.83 and Essential hypertension I10 [place] [address] [address] Mar, Primary osteoarthritis, 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 and Strain of left trapezius muscle, initial encounter S46.812A [place] [address] Feb, Left wrist pain M25.532 [place] [address] [address] 07 Feb, 2017 Left wrist pain M25.532 [place] [address] [address] December, Hypertriglyceridemia E78.1 ; Encounter for immunization Z23 ; Forgetfulness R68.89 and Fatigue, unspecified type R53.83 [place] [address] [address] Jun, Forgetfulness R68.89 and Rhi nitis, unspecified type J31.0 [place] [address] [address] May, [address] [address] May, Hypoxemia R09.02 ; Memory lo ss R41.3 ; Arthralgia, unspecified joint M25.50 and Rhinitis, unspecified type J31.0 [place] [address] [place] [id number] [address] [place] [address] Mar, Vertigo R42 ; Orthostatic hy potension I95.1 and Chronic gastritis without bleeding, unspecified gastritis type K29.50 [place] [facility] [id number] [address] [place] [address] Feb, [place] [address] [address] Feb, Forgetfulness R68.89 [place] [address] [place] [id number] [place] [address] Jan, [place] [address] [address] Jan, Gastroesophageal reflux dise ase without esophagitis K21.9 ; Fatigue, unspecified type R53.83 ; Weakness R53.1 ; Forgetfulness R68.89 ; Hyperlipidemia, unspecified hyperlipidemia E78.5 and Hearing abnormally acute, unspecified laterality H93.239 [place] [address] [address] Oct, [place] [address] [address] Aug, Upper respiratory tract infe ction, unspecified type J06.9 [place] [address] [address] Aug, [place] [address] [place] [id number] [place] [address] Jun, Acute idiopathic gout, unspe cified site M10.00 ; Encounter for immunization Z23 ; Hyperlipidemia, unspecified hyperlipidemia E78.5 ; Gastroesophageal reflux disease without esophagitis K21.9 and Fatigue, unspecified type R53.83 [place] [address] [place] [id number] [address] [place] [address] 17 Jan, 2015 Esophageal reflux 530.81 and Irritable bowel syndrome 564.1 [place] [address] [place] [id number] [address] [place] [address] 15 Jan, 2015 [place] [address] [place] [id number] [place] [address] Jan, Gastritis 535.50 ; Hx of col onic polyp V12.72 and Positional vertigo 386.11 [facility] [address] [facility] [id number] [address] [place] [address] Jan, [facility] [address] [facility] [id number] [address] [place] [address] Jan, Dizziness 780.4 and Nausea & vomiting 787.01 [facility] [address] [facility] [id number] [address] [place] [address] Nov, [facility] [address] [id number] [address] [place] [address] Nov, [facility] [address] [facility] [id number] [address] [place] [address] Nov, [facility] [address] [facility] [id number] [address] [place] [address] Nov, [facility] [address] [facility] [id number] [address] [place] [phone] Oct, [facility] [address] [facility] [id number] [address] [place] [address] Oct, [facility] [address] [facility] [id number] [address] [place] [phone] Oct, [facility] [address] [facility] [id number] [address] [place] [address] Aug, [facility] [address] [facility] [id number] [address] [place] [phone] Aug, [facility] [address] [facility] [id number] [address] [place] [address] Aug, [facility] [address] [facility] [id number] [address] [place] [phone] Jul, [facility] [address] [facility] [id number] [address] [place] [address] Jul, [facility] [address] [facility] [id number] [address] [place] [phone] Jul, [facility] [address] [id number] [address] [place] [address], [place] [address] Jul, [facility] [address] [id number] [address] [place] [address], [place] [address] Jul, [facility] [address] [id number] [address] [place] [address], [place] [address] Jul, [facility] [address] [id number] [address] [place] [address], [place] [address] Jul, [facility] [address] [id number] [address] [place] [address], [place] [address] Jul, [facility] [address] [id number] [address] [place] [address], [place] [address] Jul, [facility] [address] [id number] [address] [place] [address], [place] [address] Jul, [facility] [address] [id number] [address] [place] [address], [place] [address] Jul, [facility] [address] [id number] [address] [place] [address], [place] [address] Jun, [facility] [address] [id number] [address] [place] [address], [place] [address] 14 Jun, 2014 [facility] [address] [id number] [address] [place] [address], [place] [address] Jun, [facility] [address] [id number] [address] [place] [address], [place] [address] 10 Jun, 2014 [facility] [address] [id number] [address] [place] [address], [place] [address] 17 Apr, 2014 [facility] [address] [id number] [address] [place] [address], [place] [address] 17 Apr, 2014 [facility] [address] [id number] [address] [place] [address], [place] [address] 17 Apr, 2014 [facility] [address] [id number] [address] [place] [address], [place] [address] Apr, [facility] [address] [id number] [address] [place] [address], [place] [address] Feb, [facility] [address] [id number] [address] [place] [address], [place] [address] Feb, [facility] [address] [id number] [address] [place] [address], [place] [address] Feb, [facility] [address] [id number] [address] [place] [address], [place] [address] Feb, [facility] [address] [id number] [address] [place] [address], [place] [address] Jan, [facility] [address] [id number] [address] [place] [address], [place] [address] Jan, [facility] [address] [id number] [address] [place] [address], [place] [address] Jan, [facility] [address] [id number] [address] [place] [address], [place] [address] Jan, [facility] [address] [id number] [address] [place] [address], [place] [address] December, [facility] [address] [id number] [address] [place] [address], [place] [address] December, [facility] [address] [id number] [address] [place] [address], [place] [address] December, [facility] [address] [id number] [address] [place] [address], [place] [address] December, [facility] [address] [id number] [address] [place] [address], [place] [address] December, [facility] [address] [id number] [address] [place] [address], [place] [address] December, [facility] [address] [id number] [address] [place] [address], [place] [address] Oct, [facility] [address] [id number] [address] [place] [address], [place] [address] Oct, [facility] [address] [id number] [address] [place] [address], [place] [address] Sep, [facility] [address] [id number] [address] [place] [address], [place] [address] Sep, [facility] [address] [id number] [address] [place] [address], [place] [address] Aug, [facility] [address] [id number] [address] [place] [address], [place] [address] Aug, [facility] [address] [id number] [address] [place] [address], [place] [address] Jul, [facility] [address] [id number] [address] [place] [address], [place] [address] Jul, [facility] [address] [id number] [address] [place] [address], [place] [address] May, [facility] [address] [id number] [address] [place] [address], [place] [address] May, [facility] [address] [id number] [address] [place] [address] May, [facility] [address] [id number] [address] [place] [address], [place] [address] Apr, [facility] [address] [id number] [address] [place] [address] Feb, [facility] [address] [id number] [address] [place] [address], [place] [address] Feb, [facility] [address] [id number] [address] [place] [address], [place] [address] Feb, [facility] [address] [id number] [address] [place] [address], [place] [address] Feb, [facility] [address] [id number] [address] [place] [address] Jan, [facility] [address] [id number] [address] [place] [address], [place] [address] Jan, [facility] [address] [id number] [address] [place] [address], [place] [address] December, [facility] [address] [id number] [address] [place] [address], [place] [address] Nov, [facility] [address] [id number] [address] [place] [address], [place] [address] Nov, [facility] [address] [id number] [address] [place] [address], [place] [address] Oct, [facility] [address] [id number] [address] [place] [address], [place] [address] Oct, [facility] [address] [id number] [address] [place] [address], [place] [address] Oct, [facility] [address] [id number] [address] [place] [address], [place] [address] Aug, [facility] [address] [id number] [address] [place] [address], [place] [address] Aug, [facility] [address] [id number] [address] [place] [address], [place] [address] Jul, [facility] [address] [id number] [address] [place] [address], [place] [address] Jul, [facility] [address] [id number] [address] [place] [address], [place] [address] Jul, [facility] [address] [id number] [address] [place] [address], [place] [address] Jul, [facility] [address] [id number] [address] [place] [address], [place] [address] Jun, [facility] [address] [id number] [address] [place] [address], [place] [address] Jun, [facility] [address] [id number] [address] [place] [address], [place] [address] May, [facility] [address] [id number] [address] [place] [address], [place] [address] Mar, [facility] [address] [id number] [address] [place] [address], [place] [address] Mar, [facility] [address] [id number] [address] [place] [address], [place] [address] Jan, [facility] [address] [id number] [address] [place] [address], [place] [address] Jan, [facility] [address] [id number] [address] [place] [address], [place] [address] December, [facility] [address] [id number] [address] [place] [address], [place] [address] December, [facility] [address] [id number] [address] [place] [address], [place] [address] December, [facility] [address] [id number] [address] [place] [address], [place] [address] December, [facility] [address] [id number] [address] [place] [address], [place] [address] Sep, [facility] [address] [id number] [address] [place] [address], [place] [address] Sep, [facility] [address] [id number] [address] [place] [address], [place] [address] Jun, [facility] [address] [id number] [address] [place] [address], [place] [address] 14 Jun, 2011 [facility] [address] [id number] [address] [place] [address], [place] [address] 18 May, 2011 [facility] [address] [id number] [address] [place] [address], [place] [address] Feb, [facility] [address] [id number] [address] [place] [address], [place] [address] Mar, [facility] [address] [facility] [id number] [address] [place] [id number] Nov, [facility] [address] [facility] [id number] [address] [place] [address] Sep, [facility] [address] [facility] [id number] [address] [place] [address] Jun, [facility] [address] [facility] [id number] [address] [place] [address] Jun, [facility] [address] [facility] [id number] [address] [place] [phone] May, [facility] [address] [facility] [id number] [address] [place] [address] Mar, [facility] [address] [facility] [id number] [address] [place] [address] December, IMMUNIZATIONS No Known Immunizations SOCIAL HISTORY [...]
--- OUTSIDE RECORDS SUMMARY | 2020-02-28 02:35 | XMS REPORT ---
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 Active 589422647 Problem Essential hypertension I10 Active 05009060 Problem Stage 3 chronic kidney disease N18.3 Active 730391155 Problem Memory loss R41.3 Active 01320512 Problem Primary insomnia F51.01 Active 397 2004 Problem Nocturnal hypoxia G47.34 Active 38 7472408 Problem Hyperlipidemia, unspecified hyperlipidemia E78.5 Active 50872682 Problem Gastroesophageal reflux disease without esophagitis K21.9 Active 960678277 Problem Anxiety F41.9 Active 42257916 Problem Other chronic gastritis without hemorrhage K29.50 Active 6907199 ALLERGIES No Information ENCOUNTERS Encounter Location Date Diagnosis [place] [id number] [facility] [id number] [address] [place] [id number] Nov, [facility] [address] [facility] [id number] [address] [place] [phone] Oct, [place] [address] [facility] [id number] [address] [place] [id number] Oct, [place] [address] [place] [id number] [address] [place] [phone] Oct, CN palsy, left eye H49.22 ; Primary insomnia F51.01 ; Pulsatile tinnitus of left ear H93.A2 and Seborrheic keratosis L82.1 [facility] [address] [place] [id number] [address] [place] [address] Aug, CN palsy, left eye H49.22 ; Essential hypertension I10 ; Arthralgia, unspecified joint M25.50 and Primary insomnia F51.01 [facility] [address] [place] [id number] [place] [address] Jul, Cranial nerve palsy G52.9 [facility] [address] [place] [id number] [place] [address] Jul, Cranial nerve palsy G52.9 ; Stage 3 chronic kidney disease N18.3 ; Family history of embolic stroke Z82.3 and Numbness of left hand R20.0 [place] [address] [place] [id number] [place] [address] Jun, Anxiety F41.9 and Essential hypertension I10 [place] [address] [address] Jun, [facility] [address] [place] [id number] [place] [address] Jun, Essential hypertension I10 [place] [address] [address] May, [facility] [address] [place] [id number] [place] [address] May, Herpes zoster without compli cation B02.9 and Stage 3 chronic kidney disease N18.3 [facility] [address] [place] [id number] [address] [place] [address] Mar, Essential hypertension I10 [facility] [address] [place] [id number] [place] [address] Feb, [facility] [address] [place] [id number] [address] [place] [phone] Feb, [facility] [address] [address] Feb, Essential hypertension I10 a nd Acute midline low back pain without sciatica M54.5 [facility] [address] [address] December, Insect bite (nonvenomous) of lower back and pelvis, initial encounter S30.860A and Bitten or stung by nonvenomous insect and other nonvenomous arthropods, initial encounter W57.XXXA [facility] [address] [address] Nov, Pleurisy R09.1 [place] [address] [address] Nov, [facility] [address] [address] Oct, Hypoxemia R09.02 and Fatigue , unspecified type R53.83 [place] [address] [address] 12 Sep, 2017 Other chronic gastritis with out hemorrhage K29.50 ; Gastroesophageal reflux disease without esophagitis K21.9 ; Hyperlipidemia, unspecified hyperlipidemia E78.5 and Arthralgia, unspecified joint M25.50 [facility] [address] [address] Aug, Hypertriglyceridemia E78.1 [place] [address] [address] 02 May, 2017 Anxiety F41.9 [place] [address] [address] 21 Apr, 2017 Hyperlipidemia, unspecified hyperlipidemia E78.5 ; Gastroesophageal reflux disease without esophagitis K21.9 ; Forgetfulness R68.89 ; Essential hypertension I10 and Anxiety F41.9 [place] [address] [address] 14 Apr, 2017 Hypertriglyceridemia E78.1 [place] [address] [place] [address] Mar, Medicare annual wellness vis it, subsequent Z00.00 ; Hyperlipidemia, unspecified hyperlipidemia E78.5 and Essential hypertension I10 [place] [address] [address] Mar, Forgetfulness R68.89 ; Fatig ue, unspecified type R53.83 and Essential hypertension I10 [place] [address] [address] Mar, Primary osteoarthritis, 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 and Strain of left trapezius muscle, initial encounter S46.812A [place] 8[address]32[address] Feb, Left wrist pain M25.532 [place] [address] [address] 07 Feb, 2017 Left wrist pain M25.532 [place] [address] [address] December, Hypertriglyceridemia E78.1 ; Encounter for immunization Z23 ; Forgetfulness R68.89 and Fatigue, unspecified type R53.83 [place] [address] [address] Jun, Forgetfulness R68.89 and Rhi nitis, unspecified type J31.0 [place] [address] [address] May, [address] [address] May, Hypoxemia R09.02 ; Memory lo ss R41.3 ; Arthralgia, unspecified joint M25.50 and Rhinitis, unspecified type J31.0 [place] [address] [place] [id number] [place] [address] Mar, Vertigo R42 ; Orthostatic hy potension I95.1 and Chronic gastritis without bleeding, unspecified gastritis type K29.50 [place] [address] [facility] [id number] [address] [place] [address] Feb, [place] [address] [address] Feb, Forgetfulness R68.89 [place] [address] [place] [id number] [place] [address] Jan, [place] [address] [address] Jan, Gastroesophageal reflux dise ase without esophagitis K21.9 ; Fatigue, unspecified type R53.83 ; Weakness R53.1 ; Forgetfulness R68.89 ; Hyperlipidemia, unspecified hyperlipidemia E78.5 and Hearing abnormally acute, unspecified laterality H93.239 [place] [address] [address] Oct, [place] [address] [address] Aug, Upper respiratory tract infe ction, unspecified type J06.9 [place] [address] [address] Aug, [place] [address] [place] [id number] [place] [address] Jun, Acute idiopathic gout, unspe cified site M10.00 ; Encounter for immunization Z23 ; Hyperlipidemia, unspecified hyperlipidemia E78.5 ; Gastroesophageal reflux disease without esophagitis K21.9 and Fatigue, unspecified type R53.83 [place] [address] [place] [id number] [address] [place] [id number] 17 Jan, 2015 Esophageal reflux 530.81 and Irritable bowel syndrome 564.1 [place] [address] [place] [id number] [address] [place] [address] 15 Jan, 2015 [place] [address] [place] [id number] [place] [address] Jan, Gastritis 535.50 ; Hx of col onic polyp V12.72 and Positional vertigo 386.11 [facility] [address] [facility] [id number] [address] [place] [address] Jan, [facility] [address] [facility] [id number] [address] [place] [address] Jan, Dizziness 780.4 and Nausea & vomiting 787.01 [facility] [address] [facility] [id number] [address] [place] [address] Nov, [facility] [address] [id number] [address] [place] [address] Nov, [facility] [address] [facility] [id number] [address] [place] [address] Nov, [facility] [address] [facility] [id number] [address] [place] [address] Nov, [facility] [address] [facility] [id number] [address] [place] [phone] Oct, [facility] [address] [facility] [id number] [address] [place] [phone] Oct, [facility] [address] [facility] [id number] [address] [place] [address] Oct, [facility] [address] [facility] [id number] [address] [place] [phone] Aug, [facility] [address] [facility] [id number] [address] [place] [phone] Aug, [facility] [address] [facility] [id number] [address] [place] [phone] Aug, [facility] [address] [facility] [id number] [address] [place] [id number] Jul, [facility] [address] [facility] [id number] [address] [place] [phone] Jul, [facility] [address] [facility] [id number] [address] [place] [phone] Jul, [facility] [address] [id number] [address] [place] [address], [place] [address] Jul, [facility] [address] [id number] [address] [place] [address], [place] [address] Jul, [facility] [address] [id number] [address] [place] [address], [place] [address] Jul, [facility] [address] [id number] [address] [place] [address], [place] [address] Jul, [facility] [address] [id number] [address] [place] [address], [place] [address] Jul, [facility] [address] [id number] [address] [place] [address], [place] [address] Jul, [facility] [address] [id number] [address] [place] [address], [place] [address] Jul, [facility] [address] [id number] [address] [place] [address], [place] [address] Jul, [facility] [address] [id number] [address] [place] [address], [place] [address] Jun, [facility] [address] [id number] [address] [place] [address], [place] [address] 14 Jun, 2014 [facility] [address] [id number] [address] [place] [address], [place] [address] Jun, [facility] [address] [id number] [address] [place] [address], [place] [address] 10 Jun, 2014 [facility] [address] [id number] [address] [place] [address], [place] [address] 17 Apr, 2014 [facility] [address] [id number] [address] [place] [address], [place] [address] 17 Apr, 2014 [facility] [address] [id number] [address] [place] [address], [place] [address] 17 Apr, 2014 [facility] [address] [id number] [address] [place] [address], [place] [address] Apr, [facility] [address] [id number] [address] [place] [address], [place] [address] Feb, [facility] [address] [id number] [address] [place] [address], [place] [address] Feb, [facility] [address] [id number] [address] [place] [address], [place] [address] Feb, [facility] [address] [id number] [address] [place] [address], [place] [address] Feb, [facility] [address] [id number] [address] [place] [address], [place] [address] Jan, [facility] [address] [id number] [address] [place] [address], [place] [address] Jan, [facility] [address] [id number] [address] [place] [address], [place] [address] Jan, [facility] [address] [id number] [address] [place] [address], [place] [address] Jan, [facility] [address] [id number] [address] [place] [address], [place] [address] December, [facility] [address] [id number] [address] [place] [address], [place] [address] December, [facility] [address] [id number] [address] [place] [address], [place] [address] December, [facility] [address] [id number] [address] [place] [address], [place] [address] December, [facility] [address] [id number] [address] [place] [address], [place] [address] December, [facility] [address] [id number] [address] [place] [address], [place] [address] December, [facility] [address] [id number] [address] [place] [address], [place] [address] Oct, [facility] [address] [id number] [address] [place] [address], [place] [address] Oct, [facility] [address] [id number] [address] [place] [address], [place] [address] Sep, [facility] [address] [id number] [address] [place] [address], [place] [address] Sep, [facility] [address] [id number] [address] [place] [address], [place] [address] Aug, [facility] [address] [id number] [address] [place] [address], [place] [address] Aug, [facility] [address] [id number] [address] [place] [address], [place] [address] Jul, [facility] [address] [id number] [address] [place] [address], [place] [address] Jul, [facility] [address] [id number] [address] [place] [address], [place] [address] May, [facility] [address] [id number] [address] [place] [address], [place] [address] May, [facility] [address] [id number] [address] [place] [address] May, [facility] [address] [id number] [address] [place] [address], [place] [address] Apr, [facility] [address] [id number] [address] [place] [address] Feb, [facility] [address] [id number] [address] [place] [address], [place] [address] Feb, [facility] [address] [id number] [address] [place] [address], [place] [address] Feb, [facility] [address] [id number] [address] [place] [address], [place] [address] Feb, [facility] [address] [id number] [address] [place] [id number] Jan, [facility] [place] [address] [id number] [address] [place] [address], [place] [address] Jan, [facility] [address] [id number] [address] [place] [address], [place] [address] December, [facility] [address] [id number] [address] [place] [address], [place] [address] Nov, [facility] [address] [id number] [address] [place] [address], [place] [address] Nov, [facility] [address] [id number] [address] [place] [address], [place] [address] Oct, [facility] [address] [id number] [address] [place] [address], [place] [address] Oct, [facility] [place] [address] [id number] [address] [place] [address], [place] [address] Oct, [facility] [place] [address] [id number] [address] [place] [address], [place] [address] Aug, [facility] [place] [address] [id number] [address] [place] [address], [place] [address] Aug, [facility] [address] [id number] [address] [place] [address], [place] [address] Jul, [facility] [place] [address] [id number] [address] [place] [address], [place] [address] Jul, [facility] [address] [id number] [address] [place] [address], [place] [address] Jul, [facility] [address] [id number] [address] [place] [address], [place] [address] Jul, [facility] [address] [id number] [address] [place] [address], [place] [address] Jun, [facility] [address] [id number] [address] [place] [address], [place] [address] Jun, [facility] [address] [id number] [address] [place] [address], [place] [address] May, [facility] [address] [id number] [address] [place] [address], [place] [address] Mar, [facility] [address] [id number] [address] [place] [address], [place] [address] Mar, [facility] [address] [id number] [address] [place] [address], [place] [address] Jan, [facility] [address] [id number] [address] [place] [address], [place] [address] Jan, [facility] [address] [id number] [address] [place] [address], [place] [address] December, [facility] [address] [id number] [address] [place] [address], [place] [address] December, [facility] [address] [id number] [address] [place] [address], [place] [address] December, [facility] [address] [id number] [address] [place] [address], [place] [address] December, [facility] [address] [id number] [address] [place] [address], [place] [address] Sep, [facility] [address] [id number] [address] [place] [address], [place] [address] Sep, [facility] [address] [id number] [address] [place] [address], [place] [address] Jun, [facility] [address] [id number] [address] [place] [address], [place] [address] 14 Jun, 2011 [facility] [address] [id number] [address] [place] [address], [place] [address] 18 May, 2011 [facility] [address] [id number] [address] [place] [address], [place] [address] Feb, [facility] [address] [id number] [address] [place] [address], [place] [address] Mar, [facility] [address] [facility] [id number] [address] [place] [address] Nov, [facility] [address] [facility] [id number] [address] [place] [address] Sep, [facility] [address] [facility] [id number] [address] [place] [address] Jun, [facility] [address] [facility] [id number] [address] [place] [address] Jun, [facility] [address] [facility] [id number] [address] [place] [address] May, [facility] [address] [facility] [id number] [address] [place] [address] Mar, [facility] [address] [facility] [id number] [address] [place] [address] December, IMMUNIZATIONS No Known Immunizations SOCIAL HISTORY [...]
--- OUTSIDE RECORDS SUMMARY | 2020-02-28 02:35 | XMS REPORT ---
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 Active 865261058 Problem Essential hypertension I10 Active 28916515 Problem Stage 3 chronic kidney disease N18.3 Active 566514808 Problem Memory loss R41.3 Active 29137142 Problem Primary insomnia F51.01 Active 397 2004 Problem Nocturnal hypoxia G47.34 Active 38 5506572 Problem Hyperlipidemia, unspecified hyperlipidemia E78.5 Active 73062480 Problem Gastroesophageal reflux disease without esophagitis K21.9 Active 000133859 Problem Anxiety F41.9 Active 49865693 Problem Other chronic gastritis without hemorrhage K29.50 Active 4338698 ALLERGIES No Information ENCOUNTERS Encounter Location Date Diagnosis [place] [id number] [facility] [id number] [address] [place] [id number] Nov, [facility] [address] [facility] [id number] [address] [place] [phone] Oct, [place] [address] [facility] [id number] [address] [place] [address] Oct, [place] [address] [place] [id number] [address] [place] [id number] Oct, CN palsy, left eye H49.22 ; Primary insomnia F51.01 ; Pulsatile tinnitus of left ear H93.A2 and Seborrheic keratosis L82.1 [facility] [address] [place] [id number] [address] [place] [address] Aug, CN palsy, left eye H49.22 ; Essential hypertension I10 ; Arthralgia, unspecified joint M25.50 and Primary insomnia F51.01 [facility] [address] [place] [id number] [place] [address] Jul, Cranial nerve palsy G52.9 [facility] [address] [place] [id number] [place] [address] Jul, Cranial nerve palsy G52.9 ; Stage 3 chronic kidney disease N18.3 ; Family history of embolic stroke Z82.3 and Numbness of left hand R20.0 [place] [address] [place] [id number] [place] [address] Jun, Anxiety F41.9 and Essential hypertension I10 [place] [address] [address] Jun, [facility] [address] [place] [id number] [place] [address] Jun, Essential hypertension I10 [place] [address] [address] May, [facility] [address] [place] [id number] [place] [address] May, Herpes zoster without compli cation B02.9 and Stage 3 chronic kidney disease N18.3 [facility] [address] [place] [id number] [address] [place] [address] Mar, Essential hypertension I10 [facility] [address] [place] [id number] [place] [address] Feb, [facility] [address] [place] [id number] [address] [place] [phone] Feb, [facility] [address] [address] Feb, Essential hypertension I10 a nd Acute midline low back pain without sciatica M54.5 [facility] [address] [address] December, Insect bite (nonvenomous) of lower back and pelvis, initial encounter S30.860A and Bitten or stung by nonvenomous insect and other nonvenomous arthropods, initial encounter W57.XXXA [facility] [address] [address] Nov, Pleurisy R09.1 [place] [address] [address] Nov, [facility] [address] [address] Oct, Hypoxemia R09.02 and Fatigue , unspecified type R53.83 [place] [address] [address] 12 Sep, 2017 Other chronic gastritis with out hemorrhage K29.50 ; Gastroesophageal reflux disease without esophagitis K21.9 ; Hyperlipidemia, unspecified hyperlipidemia E78.5 and Arthralgia, unspecified joint M25.50 [facility] [address] [address] Aug, Hypertriglyceridemia E78.1 [place] [address] [address] 02 May, 2017 Anxiety F41.9 [place] [address] [address] 21 Apr, 2017 Hyperlipidemia, unspecified hyperlipidemia E78.5 ; Gastroesophageal reflux disease without esophagitis K21.9 ; Forgetfulness R68.89 ; Essential hypertension I10 and Anxiety F41.9 [place] [address] [address] 14 Apr, 2017 Hypertriglyceridemia E78.1 [place] [address] [place] [address] Mar, Medicare annual wellness vis it, subsequent Z00.00 ; Hyperlipidemia, unspecified hyperlipidemia E78.5 and Essential hypertension I10 [place] [address] [address] Mar, Forgetfulness R68.89 ; Fatig ue, unspecified type R53.83 and Essential hypertension I10 [place] [address] [address] Mar, Primary osteoarthritis, 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 and Strain of left trapezius muscle, initial encounter S46.812A [place] [address] Feb, Left wrist pain M25.532 [place] [address] [address] 07 Feb, 2017 Left wrist pain M25.532 [place] [address] [address] December, Hypertriglyceridemia E78.1 ; Encounter for immunization Z23 ; Forgetfulness R68.89 and Fatigue, unspecified type R53.83 [place] [address] [address] Jun, Forgetfulness R68.89 and Rhi nitis, unspecified type J31.0 [place] [address] [address] May, [address] [address] May, Hypoxemia R09.02 ; Memory lo ss R41.3 ; Arthralgia, unspecified joint M25.50 and Rhinitis, unspecified type J31.0 [place] [address] [place] [id number] [address] [place] [address] Mar, Vertigo R42 ; Orthostatic hy potension I95.1 and Chronic gastritis without bleeding, unspecified gastritis type K29.50 [place] [id number] [facility] [id number] [address] [place] [address] Feb, [place] [address] [address] Feb, Forgetfulness R68.89 [place] [address] [place] [id number] [place] [address] Jan, [place] [address] [address] Jan, Gastroesophageal reflux dise ase without esophagitis K21.9 ; Fatigue, unspecified type R53.83 ; Weakness R53.1 ; Forgetfulness R68.89 ; Hyperlipidemia, unspecified hyperlipidemia E78.5 and Hearing abnormally acute, unspecified laterality H93.239 [place] [address] [address] Oct, [place] [address] [address] Aug, Upper respiratory tract infe ction, unspecified type J06.9 [place] [address] [address] Aug, [place] [address] [place] [id number] [place] [address] Jun, Acute idiopathic gout, unspe cified site M10.00 ; Encounter for immunization Z23 ; Hyperlipidemia, unspecified hyperlipidemia E78.5 ; Gastroesophageal reflux disease without esophagitis K21.9 and Fatigue, unspecified type R53.83 [place] [address] [place] [id number] [address] [place] [address] 17 Jan, 2015 Esophageal reflux 530.81 and Irritable bowel syndrome 564.1 [place] [address] [place] [id number] [address] [place] [address] 15 Jan, 2015 [place] [address] [place] [id number] [place] [address] Jan, Gastritis 535.50 ; Hx of col onic polyp V12.72 and Positional vertigo 386.11 [facility] [address] [facility] [id number] [address] [place] [address] Jan, [facility] [address] [facility] [id number] [address] [place] [address] Jan, Dizziness 780.4 and Nausea & vomiting 787.01 [facility] [address] [facility] [id number] [address] [place] [address] Nov, [facility] [address] [id number] [address] [place] [phone] Nov, [facility] [address] [facility] [id number] [address] [place] [phone] Nov, [facility] [address] [facility] [id number] [address] [place] [phone] Nov, [facility] [address] [facility] [id number] [address] [place] [phone] Oct, [facility] [address] [facility] [id number] [address] [place] [phone] Oct, [facility] [address] [facility] [id number] [address] [place] [phone] Oct, [facility] [address] [facility] [id number] [address] [place] [phone] Aug, [facility] [address] [facility] [id number] [address] [place] [phone] Aug, [facility] [address] [facility] [id number] [address] [place] [phone] Aug, [facility] [address] [facility] [id number] [address] [place] [phone] Jul, [facility] [address] [facility] [id number] [address] [place] [phone] Jul, [facility] [address] [facility] [id number] [address] [place] [phone] Jul, [facility] [address] [id number] [address] [place] [address], [place] [address] Jul, [facility] [address] [id number] [address] [place] [address], [place] [address] Jul, [facility] [address] [id number] [address] [place] [address], [place] [address] Jul, [facility] [address] [id number] [address] [place] [address], [place] [address] Jul, [facility] [address] [id number] [address] [place] [address], [place] [address] Jul, [facility] [address] [id number] [address] [place] [address], [place] [address] Jul, [facility] [address] [id number] [address] [place] [address], [place] [address] Jul, [facility] [address] [id number] [address] [place] [address], [place] [address] Jul, [facility] [address] [id number] [address] [place] [address], [place] [address] Jun, [facility] [address] [id number] [address] [place] [address], [place] [address] 14 Jun, 2014 [facility] [address] [id number] [address] [place] [address], [place] [address] Jun, [facility] [address] [id number] [address] [place] [address], [place] [address] 10 Jun, 2014 [facility] [address] [id number] [address] [place] [address], [place] [address] 17 Apr, 2014 [facility] [address] [id number] [address] [place] [address], [place] [address] 17 Apr, 2014 [facility] [address] [id number] [address] [place] [address], [place] [address] 17 Apr, 2014 [facility] [address] [id number] [address] [place] [address], [place] [address] Apr, [facility] [address] [id number] [address] [place] [address], [place] [address] Feb, [facility] [address] [id number] [address] [place] [address], [place] [address] Feb, [facility] [address] [id number] [address] [place] [address], [place] [address] Feb, [facility] [address] [id number] [address] [place] [address], [place] [address] Feb, [facility] [address] [id number] [address] [place] [address], [place] [address] Jan, [facility] [address] [id number] [address] [place] [address], [place] [address] Jan, [facility] [address] [id number] [address] [place] [address], [place] [address] Jan, [facility] [address] [id number] [address] [place] [address], [place] [address] Jan, [facility] [address] [id number] [address] [place] [address], [place] [address] December, [facility] [address] [id number] [address] [place] [address], [place] [address] December, [facility] [address] [id number] [address] [place] [address], [place] [address] December, [facility] [address] [id number] [address] [place] [address], [place] [address] December, [facility] [address] [id number] [address] [place] [address], [place] [address] December, [facility] [address] [id number] [address] [place] [address], [place] [address] December, [facility] [address] [id number] [address] [place] [address], [place] [address] Oct, [facility] [address] [id number] [address] [place] [address], [place] [address] Oct, [facility] [address] [id number] [address] [place] [address], [place] [address] Sep, [facility] [address] [id number] [address] [place] [address], [place] [address] Sep, [facility] [address] [id number] [address] [place] [address], [place] [address] Aug, [facility] [address] [id number] [address] [place] [address], [place] [address] Aug, [facility] [address] [id number] [address] [place] [address], [place] [address] Jul, [facility] [address] [id number] [address] [place] [address], [place] [address] Jul, [facility] [address] [id number] [address] [place] [address], [place] [address] May, [facility] [address] [id number] [address] [place] [address], [place] [address] May, [facility] [address] [id number] [address] [place] [address] May, [facility] [address] [id number] [address] [place] [address], [place] [address] Apr, [facility] [address] [id number] [address] [place] [phone] Feb, [facility] [address] [id number] [address] [place] [address], [place] [address] Feb, [facility] [address] [id number] [address] [place] [address], [place] [address] Feb, [facility] [address] [id number] [address] [place] [address], [place] [address] Feb, [facility] [address] [id number] [address] [place] [address] Jan, [facility] [address] [id number] [address] [place] [address], [place] [address] Jan, [facility] [address] [id number] [address] [place] [address], [place] [address] December, [facility] [address] [id number] [address] [place] [address], [place] [address] Nov, [facility] [address] [id number] [address] [place] [address], [place] [address] Nov, [facility] [address] [id number] [address] [place] [address], [place] [address] Oct, [facility] [address] [id number] [address] [place] [address], [place] [address] Oct, [facility] [address] [id number] [address] [place] [address], [place] [address] Oct, [facility] [address] [id number] [address] [place] [address], [place] [address] Aug, [facility] [address] [id number] [address] [place] [address], [place] [address] Aug, [facility] [address] [id number] [address] [place] [address], [place] [address] Jul, [facility] [address] [id number] [address] [place] [address], [place] [address] Jul, [facility] [address] [id number] [address] [place] [address], [place] [address] Jul, [facility] [address] [id number] [address] [place] [address], [place] [address] Jul, [facility] [address] [id number] [address] [place] [address], [place] [address] Jun, [facility] [address] [id number] [address] [place] [address], [place] [address] Jun, [facility] [address] [id number] [address] [place] [address], [place] [address] May, [facility] [address] [id number] [address] [place] [address], [place] [address] Mar, [facility] [address] [id number] [address] [place] [address], [place] [address] Mar, [facility] [address] [id number] [address] [place] [address], [place] [address] Jan, [facility] [address] [id number] [address] [place] [address], [place] [address] Jan, [facility] [address] [id number] [address] [place] [address], [place] [address] December, [facility] [address] [id number] [address] [place] [address], [place] [address] December, [facility] [address] [id number] [address] [place] [address], [place] [address] December, [facility] [address] [id number] [address] [place] [address], [place] [address] December, [facility] [address] [id number] [address] [place] [address], [place] [address] Sep, [facility] [address] [id number] [address] [place] [address], [place] [address] Sep, [facility] [address] [id number] [address] [place] [address], [place] [address] Jun, [facility] [address] [id number] [address] [place] [address], [place] [address] 14 Jun, 2011 [facility] [address] [id number] [address] [place] [address], [place] [address] 18 May, 2011 [facility] [address] [id number] [address] [place] [address], [place] [address] Feb, [facility] [address] [id number] [address] [place] [address], [place] [address] Mar, [facility] [address] [facility] [id number] [address] [place] [phone] Nov, [facility] [address] [facility] [id number] [address] [place] [address] Sep, [facility] [address] [facility] [id number] [address] [place] [address] Jun, [facility] [address] [facility] [id number] [address] [place] [address] Jun, [facility] [address] [facility] [id number] [address] [place] [address] May, [facility] [address] [facility] [id number] [address] [place] [address] Mar, [facility] [address] [facility] [id number] [address] [place] [address] December, IMMUNIZATIONS No Known Immunizations SOCIAL HISTORY [...]
--- OUTSIDE RECORDS SUMMARY | 2020-02-28 02:35 | XMS REPORT ---
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 Active 649265682 Problem Essential hypertension I10 Active 79875084 Problem Stage 3 chronic kidney disease N18.3 Active 724357401 Problem Memory loss R41.3 Active 23161115 Problem Primary insomnia F51.01 Active 397 2004 Problem Nocturnal hypoxia G47.34 Active 38 5830567 Problem Hyperlipidemia, unspecified hyperlipidemia E78.5 Active 13601603 Problem Gastroesophageal reflux disease without esophagitis K21.9 Active 681129178 Problem Anxiety F41.9 Active 78343617 Problem Other chronic gastritis without hemorrhage K29.50 Active 8239094 ALLERGIES No Information ENCOUNTERS Encounter Location Date Diagnosis [place] [address] [facility] [id number] [address] [place] [address] Nov, [facility] [address] [facility] [id number] [address] [place] [address] Oct, [place] [address] [address] [facility] [id number] [address] [place] [address] Oct, [place] [address] [address] [place] [id number] [address] [place] [address] Oct, CN palsy, left eye H49.22 ; Primary insomnia F51.01 ; Pulsatile tinnitus of left ear H93.A2 and Seborrheic keratosis L82.1 [facility] [address] [place] [id number] [address] [place] [address] Aug, CN palsy, left eye H49.22 ; Essential hypertension I10 ; Arthralgia, unspecified joint M25.50 and Primary insomnia F51.01 [facility] [address] [place] [id number] [place] [address] Jul, Cranial nerve palsy G52.9 [facility] [address] [place] [id number] [place] [address] Jul, Cranial nerve palsy G52.9 ; Stage 3 chronic kidney disease N18.3 ; Family history of embolic stroke Z82.3 and Numbness of left hand R20.0 [place] [address] [place] [id number] [place] [address] Jun, Anxiety F41.9 and Essential hypertension I10 [place] [address] [address] Jun, [facility] [address] [place] [id number] [place] [address] Jun, Essential hypertension I10 [place] [address] [address] May, [facility] [address] [place] [id number] [place] [address] May, Herpes zoster without compli cation B02.9 and Stage 3 chronic kidney disease N18.3 [facility] [address] [place] [id number] [address] [place] [address] Mar, Essential hypertension I10 [facility] [address] [place] [id number] [place] [address] Feb, [facility] [address] [place] [id number] [address] [place] [address] Feb, [facility] [address] [address] Feb, Essential hypertension I10 a nd Acute midline low back pain without sciatica M54.[address] [facility] [address] [address] December, Insect bite (nonvenomous) of lower back and pelvis, initial encounter S30.860A and Bitten or stung by nonvenomous insect and other nonvenomous arthropods, initial encounter W57.XXXA [facility] [address] [address] Nov, Pleurisy R09.1 [place] [address] [address] Nov, [facility] [address] [address] Oct, Hypoxemia R09.02 and Fatigue , unspecified type R53.83 [place] [address] [address] 12 Sep, 2017 Other chronic gastritis with out hemorrhage K29.50 ; Gastroesophageal reflux disease without esophagitis K21.9 ; Hyperlipidemia, unspecified hyperlipidemia E78.5 and Arthralgia, unspecified joint M25.50 [facility] [address] [address] Aug, Hypertriglyceridemia E78.1 [place] [address] [address] 02 May, 2017 Anxiety F41.9 [place] [address] [address] 21 Apr, 2017 Hyperlipidemia, unspecified hyperlipidemia E78.5 ; Gastroesophageal reflux disease without esophagitis K21.9 ; Forgetfulness R68.89 ; Essential hypertension I10 and Anxiety F41.9 [place] [address] [address] 14 Apr, 2017 Hypertriglyceridemia E78.1 [place] [address] [place] [address] Mar, Medicare annual wellness vis it, subsequent Z00.00 ; Hyperlipidemia, unspecified hyperlipidemia E78.5 and Essential hypertension I10 [place] [address] [address] Mar, Forgetfulness R68.89 ; Fatig ue, unspecified type R53.83 and Essential hypertension I10 [place] [address] [address] Mar, Primary osteoarthritis, 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 and Strain of left trapezius muscle, initial encounter S46.812A [place] [address] Feb, Left wrist pain M25.532 [place] [address] [address] 07 Feb, 2017 Left wrist pain M25.532 [place] [address] [address] December, Hypertriglyceridemia E78.1 ; Encounter for immunization Z23 ; Forgetfulness R68.89 and Fatigue, unspecified type R53.83 [place] [address] [address] Jun, Forgetfulness R68.89 and Rhi nitis, unspecified type J31.0 [place] [address] [address] May, [address] [address] May, Hypoxemia R09.02 ; Memory lo ss R41.3 ; Arthralgia, unspecified joint M25.50 and Rhinitis, unspecified type J31.0 [place] [address] [address] [place] [id number] [address] [place] [address] Mar, Vertigo R42 ; Orthostatic hy potension I95.1 and Chronic gastritis without bleeding, unspecified gastritis type K29.50 [place] [address] [facility] [id number] [address] [place] [address] Feb, [place] [address] [address] Feb, Forgetfulness R68.89 [place] [address] [place] [id number] [place] [address] Jan, [place] [address] [address] Jan, Gastroesophageal reflux dise ase without esophagitis K21.9 ; Fatigue, unspecified type R53.83 ; Weakness R53.1 ; Forgetfulness R68.89 ; Hyperlipidemia, unspecified hyperlipidemia E78.5 and Hearing abnormally acute, unspecified laterality H93.239 [place] [address] [address] Oct, [place] [address] [address] Aug, Upper respiratory tract infe ction, unspecified type J06.9 [place] [address] [address] Aug, [place] [address] [place] [id number] [place] [address] Jun, Acute idiopathic gout, unspe cified site M10.00 ; Encounter for immunization Z23 ; Hyperlipidemia, unspecified hyperlipidemia E78.5 ; Gastroesophageal reflux disease without esophagitis K21.9 and Fatigue, unspecified type R53.83 [place] [address] [place] [id number] [address] [place] [address] 17 Jan, 2015 Esophageal reflux 530.81 and Irritable bowel syndrome 564.1 [place] [address] [place] [id number] [address] [place] [address] 15 Jan, 2015 [place] [address] [place] [id number] [place] [address] Jan, Gastritis 535.50 ; Hx of col onic polyp V12.72 and Positional vertigo 386.11 [facility] [address] [facility] [id number] [address] [place] [address] Jan, [facility] [address] [facility] [id number] [address] [place] [address] Jan, Dizziness 780.4 and Nausea & vomiting 787.01 [facility] [address] [facility] [id number] [address] [place] [address] Nov, [facility] [address] [id number] [address] [place] [address] Nov, [facility] [address] [facility] [id number] [address] [place] [address] Nov, [facility] [address] [facility] [id number] [address] [place] [address] Nov, [facility] [address] [facility] [id number] [address] [place] [address] Oct, [facility] [address] [facility] [id number] [address] [place] [address] Oct, [facility] [address] [facility] [id number] [address] [place] [address] Oct, [facility] [address] [facility] [id number] [address] [place] [address] Aug, [facility] [address] [facility] [id number] [address] [place] [address] Aug, [facility] [address] [facility] [id number] [address] [place] [address] Aug, [facility] [address] [facility] [id number] [address] [place] [address] Jul, [facility] [address] [facility] [id number] [address] [place] [address] Jul, [facility] [address] [facility] [id number] [address] [place] [address] Jul, [facility] [address] [id number] [address] [place] [address], [place] [address] Jul, [facility] [address] [id number] [address] [place] [address], [place] [address] Jul, [facility] [address] [id number] [address] [place] [address], [place] [address] Jul, [facility] [address] [id number] [address] [place] [address], [place] [address] Jul, [facility] [address] [id number] [address] [place] [address], [place] [address] Jul, [facility] [address] [id number] [address] [place] [address], [place] [address] Jul, [facility] [address] [id number] [address] [place] [address], [place] [address] Jul, [facility] [address] [id number] [address] [place] [address], [place] [address] Jul, [facility] [address] [id number] [address] [place] [address], [place] [address] Jun, [facility] [address] [id number] [address] [place] [address], [place] [address] 14 Jun, 2014 [facility] [address] [id number] [address] [place] [address], [place] [address] Jun, [facility] [address] [id number] [address] [place] [address], [place] [address] 10 Jun, 2014 [facility] [address] [id number] [address] [place] [address], [place] [address] 17 Apr, 2014 [facility] [address] [id number] [address] [place] [address], [place] [address] 17 Apr, 2014 [facility] [address] [id number] [address] [place] [address], [place] [address] 17 Apr, 2014 [facility] [address] [id number] [address] [place] [address], [place] [address] Apr, [facility] [address] [id number] [address] [place] [address], [place] [address] Feb, [facility] [address] [id number] [address] [place] [address], [place] [address] Feb, [facility] [address] [id number] [address] [place] [address], [place] [address] Feb, [facility] [address] [id number] [address] [place] [address], [place] [address] Feb, [facility] [address] [id number] [address] [place] [address], [place] [address] Jan, [facility] [address] [id number] [address] [place] [address], [place] [address] Jan, [facility] [address] [id number] [address] [place] [address], [place] [address] Jan, [facility] [address] [id number] [address] [place] [address], [place] [address] Jan, [facility] [address] [id number] [address] [place] [address], [place] [address] December, [facility] [address] [id number] [address] [place] [address], [place] [address] December, [facility] [address] [id number] [address] [place] [address], [place] [address] December, [facility] [address] [id number] [address] [place] [address], [place] [address] December, [facility] [address] [id number] [address] [place] [address], [place] [address] December, [facility] [address] [id number] [address] [place] [address], [place] [address] December, [facility] [address] [id number] [address] [place] [address], [place] [address] Oct, [facility] [address] [id number] [address] [place] [address], [place] [address] Oct, [facility] [address] [id number] [address] [place] [address], [place] [address] Sep, [facility] [address] [id number] [address] [place] [address], [place] [address] Sep, [facility] [address] [id number] [address] [place] [address], [place] [address] Aug, [facility] [address] [id number] [address] [place] [address], [place] [address] Aug, [facility] [address] [id number] [address] [place] [address], [place] [address] Jul, [facility] [address] [id number] [address] [place] [address], [place] [address] Jul, [facility] [address] [id number] [address] [place] [address], [place] [address] May, [facility] [address] [id number] [address] [place] [address], [place] [address] May, [facility] [address] [id number] [address] [place] [address] May, [facility] [address] [id number] [address] [place] [address], [place] [address] Apr, [facility] [address] [id number] [address] [place] [address] Feb, [facility] [address] [id number] [address] [place] [address], [place] [address] Feb, [facility] [address] [id number] [address] [place] [address], [place] [address] Feb, [facility] [address] [id number] [address] [place] [address], [place] [address] Feb, [facility] [address] [id number] [address] [place] [address] Jan, [facility] [address] [id number] [address] [place] [address], [place] [address] Jan, [facility] [address] [id number] [address] [place] [address], [place] [address] December, [facility] [address] [id number] [address] [place] [address], [place] [address] Nov, [facility] [address] [id number] [address] [place] [address], [place] [address] Nov, [facility] [address] [id number] [address] [place] [address], [place] [address] Oct, [facility] [address] [id number] [address] [place] [address], [place] [address] Oct, [facility] [address] [id number] [address] [place] [address], [place] [address] Oct, [facility] [address] [id number] [address] [place] [address], [place] [address] Aug, [facility] [address] [id number] [address] [place] [address], [place] [address] Aug, [facility] [address] [id number] [address] [place] [address], [place] [address] Jul, [facility] [address] [id number] [address] [place] [address], [place] [address] Jul, [facility] [address] [id number] [address] [place] [address], [place] [address] Jul, [facility] [address] [id number] [address] [place] [address], [place] [address] Jul, [facility] [address] [id number] [address] [place] [address], [place] [address] Jun, [facility] [address] [id number] [address] [place] [address], [place] [address] Jun, [facility] [address] [id number] [address] [place] [address], [place] [address] May, [facility] [address] [id number] [address] [place] [address], [place] [address] Mar, [facility] [address] [id number] [address] [place] [address], [place] [address] Mar, [facility] [address] [id number] [address] [place] [address], [place] [address] Jan, [facility] [address] [id number] [address] [place] [address], [place] [address] Jan, [facility] [address] [id number] [address] [place] [address], [place] [address] December, [facility] [address] [id number] [address] [place] [address], [place] [address] December, [facility] [address] [id number] [address] [place] [address], [place] [address] December, [facility] [address] [id number] [address] [place] [address], [place] [address] December, [facility] [address] [id number] [address] [place] [address], [place] [address] Sep, [facility] [address] [id number] [address] [place] [address], [place] [address] Sep, [facility] [address] [id number] [address] [place] [address], [place] [address] Jun, [facility] [address] [id number] [address] [place] [address], [place] [address] 14 Jun, 2011 [facility] [address] [id number] [address] [place] [address], [place] [address] 18 May, 2011 [facility] [address] [id number] [address] [place] [address], [place] [address] Feb, [facility] [address] [id number] [address] [place] [address], [place] [address] Mar, [facility] [address] [facility] [id number] [address] [place] [address] Nov, [facility] [address] [facility] [id number] [address] [place] [address] Sep, [facility] [address] [facility] [id number] [address] [place] [address] Jun, [facility] [address] [facility] [id number] [address] [place] [address] Jun, [facility] [address] [facility] [id number] [address] [place] [address] May, [facility] [address] [facility] [id number] [address] [place] [address] Mar, [facility] [address] [facility] [id number] [address] [place] [address] December, IMMUNIZATIONS No Known Immunizations SOCIAL HISTORY [...]
--- OUTSIDE RECORDS SUMMARY | 2020-02-28 02:35 | XMS REPORT ---
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 Name Role Phone ROSEANN PIERRE Unavailable PROBLEMS Type Condition ICD9-CM Code ZYL49-MU Code Onset Dates Condition S tatus SNOMED Code Problem Hypertriglyceridemia E78.1 Active 436451231 Problem Gastroesophageal reflux disease with esophagitis K 21.0 Active 996720574 Problem Colon polyp K63.5 Active 97056130 Problem Rhinitis, unspecified type J31.0 Act michael 78696430 Problem Primary osteoarthritis, 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 Active 351311320 Problem Essential hypertension I10 Active 64527758 Problem Stage 3 chronic kidney disease N18.3 Active 944850705 Problem Memory loss R41.3 Active 54159403 Problem Primary insomnia F51.01 Active 397 2004 Problem Nocturnal hypoxia G47.34 Active 38 3246296 Problem Hyperlipidemia, unspecified hyperlipidemia E78.5 Active 84221820 Problem Gastroesophageal reflux disease without esophagitis K21.9 Active 242178189 Problem Anxiety F41.9 Active 29141673 Problem Other chronic gastritis without hemorrhage K29.50 Active 6564857 ALLERGIES No Information ENCOUNTERS Encounter Location Date Diagnosis [place] [id number] [facility] [id number] [address] [place] [id number] Nov, [facility] [address] [facility] [id number] [address] [place] [address] Oct, [place] [address] [facility] [id number] [address] [place] [address] Oct, [place] [address] [place] [id number] [address] [place] [address] Oct, CN palsy, left eye H49.22 ; Primary insomnia F51.01 ; Pulsatile tinnitus of left ear H93.A2 and Seborrheic keratosis L82.1 [facility] [address] [place] [id number] [address] [place] [address] Aug, CN palsy, left eye H49.22 ; Essential hypertension I10 ; Arthralgia, unspecified joint M25.50 and Primary insomnia F51.01 [facility] [address] [place] [id number] [place] [address] Jul, Cranial nerve palsy G52.9 [facility] [address] [place] [id number] [place] [address] Jul, Cranial nerve palsy G52.9 ; Stage 3 chronic kidney disease N18.3 ; Family history of embolic stroke Z82.3 and Numbness of left hand R20.0 [place] [address] [place] [id number] [place] [address] Jun, Anxiety F41.9 and Essential hypertension I10 [place] [address] [address] Jun, [facility] [address] [place] [id number] [place] [address] Jun, Essential hypertension I10 [place] [address] [address] May, [facility] [address] [place] [id number] [place] [address] May, Herpes zoster without compli cation B02.9 and Stage 3 chronic kidney disease N18.3 [facility] [address] [place] [id number] [address] [place] [address] Mar, Essential hypertension I10 [facility] [address] [place] [id number] [place] [address] Feb, [facility] [address] [place] [id number] [address] [place] [address] Feb, [facility] [address] [address] Feb, Essential hypertension I10 a nd Acute midline low back pain without sciatica M54.5 [facility] [address] [address] December, Insect bite (nonvenomous) of lower back and pelvis, initial encounter S30.860A and Bitten or stung by nonvenomous insect and other nonvenomous arthropods, initial encounter W57.XXXA [facility] [address] [address] Nov, Pleurisy R09.1 [place] [address] [address] Nov, [facility] [address] [address] Oct, Hypoxemia R09.02 and Fatigue , unspecified type R53.83 [place] [address] [address] 12 Sep, 2017 Other chronic gastritis with out hemorrhage K29.50 ; Gastroesophageal reflux disease without esophagitis K21.9 ; Hyperlipidemia, unspecified hyperlipidemia E78.5 and Arthralgia, unspecified joint M25.50 [facility] [address] [address] Aug, Hypertriglyceridemia E78.1 [place] [address] [address] 02 May, 2017 Anxiety F41.9 [place] [address] [address] 21 Apr, 2017 Hyperlipidemia, unspecified hyperlipidemia E78.5 ; Gastroesophageal reflux disease without esophagitis K21.9 ; Forgetfulness R68.89 ; Essential hypertension I10 and Anxiety F41.9 [place] [address] [address] 14 Apr, 2017 Hypertriglyceridemia E78.1 [place] [address] [place] [address] Mar, Medicare annual wellness vis it, subsequent Z00.00 ; Hyperlipidemia, unspecified hyperlipidemia E78.5 and Essential hypertension I10 [place] [address] [address] Mar, Forgetfulness R68.89 ; Fatig ue, unspecified type R53.83 and Essential hypertension I10 [place] [address] [address] Mar, Primary osteoarthritis, 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 and Strain of left trapezius muscle, initial encounter S46.812A [place] 804832[address] Feb, Left wrist pain M25.532 [place] [address] [address] 07 Feb, 2017 Left wrist pain M25.532 [place] [address] [address] December, Hypertriglyceridemia E78.1 ; Encounter for immunization Z23 ; Forgetfulness R68.89 and Fatigue, unspecified type R53.83 [place] [address] [address] Jun, Forgetfulness R68.89 and Rhi nitis, unspecified type J31.0 [place] [address] [address] May, [address] [address] May, Hypoxemia R09.02 ; Memory lo ss R41.3 ; Arthralgia, unspecified joint M25.50 and Rhinitis, unspecified type J31.0 [place] [address] [place] [id number] [address] [place] [address] Mar, Vertigo R42 ; Orthostatic hy potension I95.1 and Chronic gastritis without bleeding, unspecified gastritis type K29.50 [place] [address] [facility] [id number] [address] [place] [address] Feb, [place] [address] [address] Feb, Forgetfulness R68.89 [place] [address] [place] [id number] [place] [address] Jan, [place] [address] [address] Jan, Gastroesophageal reflux dise ase without esophagitis K21.9 ; Fatigue, unspecified type R53.83 ; Weakness R53.1 ; Forgetfulness R68.89 ; Hyperlipidemia, unspecified hyperlipidemia E78.5 and Hearing abnormally acute, unspecified laterality H93.239 [place] [address] [address] Oct, [place] [address] [address] Aug, Upper respiratory tract infe ction, unspecified type J06.9 [place] [address] [address] Aug, [place] [address] [place] [id number] [place] [address] Jun, Acute idiopathic gout, unspe cified site M10.00 ; Encounter for immunization Z23 ; Hyperlipidemia, unspecified hyperlipidemia E78.5 ; Gastroesophageal reflux disease without esophagitis K21.9 and Fatigue, unspecified type R53.83 [place] [address] [place] [id number] [address] [place] [address] 17 Jan, 2015 Esophageal reflux 530.81 and Irritable bowel syndrome 564.1 [place] [address] [place] [id number] [address] [place] [address] 15 Jan, 2015 [place] [address] [place] [id number] [place] [address] Jan, Gastritis 535.50 ; Hx of col onic polyp V12.72 and Positional vertigo 386.11 [facility] [address] [facility] [id number] [address] [place] [address] Jan, [facility] [address] [facility] [id number] [address] [place] [address] Jan, Dizziness 780.4 and Nausea & vomiting 787.01 [facility] [address] [facility] [id number] [address] [place] [address] Nov, [facility] [address] [id number] [address] [place] [address] Nov, [facility] [address] [facility] [id number] [address] [place] [address] Nov, [facility] [address] [facility] [id number] [address] [place] [address] Nov, [facility] [address] [facility] [id number] [address] [place] [address] Oct, [facility] [address] [facility] [id number] [address] [place] [address] Oct, [facility] [address] [facility] [id number] [address] [place] [phone] Oct, [facility] [address] [facility] [id number] [address] [place] [phone] Aug, [facility] [address] [facility] [id number] [address] [place] [address] Aug, [facility] [address] [facility] [id number] [address] [place] [phone] Aug, [facility] [address] [facility] [id number] [address] [place] [address] Jul, [facility] [address] [facility] [id number] [address] [place] [phone] Jul, [facility] [address] [facility] [id number] [address] [place] [address] Jul, [facility] [address] [id number] [address] [place] [address], [place] [address] Jul, [facility] [address] [id number] [address] [place] [address], [place] [address] Jul, [facility] [address] [id number] [address] [place] [address], [place] [address] Jul, [facility] [address] [id number] [address] [place] [address], [place] [address] Jul, [facility] [address] [id number] [address] [place] [address], [place] [address] Jul, [facility] [address] [id number] [address] [place] [address], [place] [address] Jul, [facility] [address] [id number] [address] [place] [address], [place] [address] Jul, [facility] [address] [id number] [address] [place] [address], [place] [address] Jul, [facility] [address] [id number] [address] [place] [address], [place] [address] Jun, [facility] [address] [id number] [address] [place] [address], [place] [address] 14 Jun, 2014 [facility] [address] [id number] [address] [place] [address], [place] [address] Jun, [facility] [address] [id number] [address] [place] [address], [place] [address] 10 Jun, 2014 [facility] [address] [id number] [address] [place] [address], [place] [address] 17 Apr, 2014 [facility] [address] [id number] [address] [place] [address], [place] [address] 17 Apr, 2014 [facility] [address] [id number] [address] [place] [address], [place] [address] 17 Apr, 2014 [facility] [address] [id number] [address] [place] [address], [place] [address] Apr, [facility] [address] [id number] [address] [place] [address], [place] [address] Feb, [facility] [address] [id number] [address] [place] [address], [place] [address] Feb, [facility] [address] [id number] [address] [place] [address], [place] [address] Feb, [facility] [address] [id number] [address] [place] [address], [place] [address] Feb, [facility] [address] [id number] [address] [place] [address], [place] [address] Jan, [facility] [address] [id number] [address] [place] [address], [place] [address] Jan, [facility] [address] [id number] [address] [place] [address], [place] [address] Jan, [facility] [address] [id number] [address] [place] [address], [place] [address] Jan, [facility] [address] [id number] [address] [place] [address], [place] [address] December, [facility] [address] [id number] [address] [place] [address], [place] [address] December, [facility] [address] [id number] [address] [place] [address], [place] [address] December, [facility] [address] [id number] [address] [place] [address], [place] [address] December, [facility] [address] [id number] [address] [place] [address], [place] [address] December, [facility] [address] [id number] [address] [place] [address], [place] [address] December, [facility] [address] [id number] [address] [place] [address], [place] [address] Oct, [facility] [address] [id number] [address] [place] [address], [place] [address] Oct, [facility] [address] [id number] [address] [place] [address], [place] [address] Sep, [facility] [address] [id number] [address] [place] [address], [place] [address] Sep, [facility] [address] [id number] [address] [place] [address], [place] [address] Aug, [facility] [address] [id number] [address] [place] [address], [place] [address] Aug, [facility] [address] [id number] [address] [place] [address], [place] [address] Jul, [facility] [address] [id number] [address] [place] [address], [place] [address] Jul, [facility] [address] [id number] [address] [place] [address], [place] [address] May, [facility] [address] [id number] [address] [place] [address], [place] [address] May, [facility] [address] [id number] [address] [place] [address] May, [facility] [address] [id number] [address] [place] [address], [place] [address] Apr, [facility] [address] [id number] [address] [place] [address] Feb, [facility] [address] [id number] [address] [place] [address], [place] [address] Feb, [facility] [address] [id number] [address] [place] [address], [place] [address] Feb, [facility] [address] [id number] [address] [place] [address], [place] [address] Feb, [facility] [address] [id number] [address] [place] [address] Jan, [facility] [address] [id number] [address] [place] [address], [place] [address] Jan, [facility] [address] [id number] [address] [place] [address], [place] [address] December, [facility] [address] [id number] [address] [place] [address], [place] [address] Nov, [facility] [address] [id number] [address] [place] [address], [place] [address] Nov, [facility] [address] [id number] [address] [place] [address], [place] [address] Oct, [facility] [address] [id number] [address] [place] [address], [place] [address] Oct, [facility] [address] [id number] [address] [place] [address], [place] [address] Oct, [facility] [address] [id number] [address] [place] [address], [place] [address] Aug, [facility] [address] [id number] [address] [place] [address], [place] [address] Aug, [facility] [address] [id number] [address] [place] [address], [place] [address] Jul, [facility] [address] [id number] [address] [place] [address], [place] [address] Jul, [facility] [address] [id number] [address] [place] [address], [place] [address] Jul, [facility] [address] [id number] [address] [place] [address], [place] [address] Jul, [facility] [address] [id number] [address] [place] [address], [place] [address] Jun, [facility] [address] [id number] [address] [place] [address], [place] [address] Jun, [facility] [address] [id number] [address] [place] [address], [place] [address] May, [facility] [address] [id number] [address] [place] [address], [place] [address] Mar, [facility] [address] [id number] [address] [place] [address], [place] [address] Mar, [facility] [address] [id number] [address] [place] [address], [place] [address] Jan, [facility] [address] [id number] [address] [place] [address], [place] [address] Jan, [facility] [address] [id number] [address] [place] [address], [place] [address] December, [facility] [address] [id number] [address] [place] [address], [place] [address] December, [facility] [address] [id number] [address] [place] [address], [place] [address] December, [facility] [address] [id number] [address] [place] [address], [place] [address] December, [facility] [address] [id number] [address] [place] [address], [place] [address] Sep, [facility] [address] [id number] [address] [place] [address], [place] [address] Sep, [facility] [address] [id number] [address] [place] [address], [place] [address] Jun, [facility] [address] [id number] [address] [place] [address], [place] [address] 14 Jun, 2011 [facility] [address] [id number] [address] [place] [address], [place] [address] 18 May, 2011 [facility] [address] [id number] [address] [place] [address], [place] [address] Feb, [facility] [address] [id number] [address] [place] [address], [place] [address] Mar, [facility] [address] [facility] [id number] [address] [place] [address] Nov, [facility] [address] [facility] [id number] [address] [place] [address] Sep, [facility] [address] [facility] [id number] [address] [place] [address] Jun, [facility] [address] [facility] [id number] [address] [place] [address] Jun, [facility] [address] [facility] [id number] [address] [place] [address] May, [facility] [address] [facility] [id number] [address] [place] [address] Mar, [facility] [address] [facility] [id number] [address] [place] [address] December, IMMUNIZATIONS No Known Immunizations SOCIAL HISTORY Never Assessed REASON FOR VISIT PLAN OF CARE VITAL SIGNS MEDICATIONS Unknown Medications RESULTS No Results PROCEDURES Procedure Date Ordered Result Body Site LIPID PANEL Jul 10, 2014 VENIPUNCT, ROUTINE* Jul 10, 2014 INSTRUCTIONS MEDICATIONS ADMINISTERED No Known Medications [...]
--- OUTSIDE RECORDS SUMMARY | 2020-02-28 02:35 | XMS REPORT ---
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 Active 217549252 Problem Essential hypertension I10 Active 79611144 Problem Stage 3 chronic kidney disease N18.3 Active 011580761 Problem Memory loss R41.3 Active 65641847 Problem Primary insomnia F51.01 Active 397 2004 Problem Nocturnal hypoxia G47.34 Active 38 5514149 Problem Hyperlipidemia, unspecified hyperlipidemia E78.5 Active 60521104 Problem Gastroesophageal reflux disease without esophagitis K21.9 Active 737163007 Problem Anxiety F41.9 Active 24338079 Problem Other chronic gastritis without hemorrhage K29.50 Active 9092521 ALLERGIES No Information ENCOUNTERS Encounter Location Date Diagnosis [place] [id number] [facility] [id number] [address] [place] [id number] Nov, [facility] [address] [facility] [id number] [address] [place] [phone] Oct, [place] [address] [facility] [id number] [address] [place] [phone] Oct, [place] [address] [place] [id number] [address] [place] [phone] Oct, CN palsy, left eye H49.22 ; Primary insomnia F51.01 ; Pulsatile tinnitus of left ear H93.A2 and Seborrheic keratosis L82.1 [facility] [address] [place] [id number] [address] [place] [phone] Aug, CN palsy, left eye H49.22 ; Essential hypertension I10 ; Arthralgia, unspecified joint M25.50 and Primary insomnia F51.01 [facility] [address] [place] [id number] [place] [id number] Jul, Cranial nerve palsy G52.9 [facility] [address] [place] [id number] [place] [phone] Jul, Cranial nerve palsy G52.9 ; Stage 3 chronic kidney disease N18.3 ; Family history of embolic stroke Z82.3 and Numbness of left hand R20.0 [place] [address] [place] [id number] [place] [phone] Jun, Anxiety F41.9 and Essential hypertension I10 [place] [address] [address] Jun, [facility] [address] [place] [id number] [place] [phone] Jun, Essential hypertension I10 [place] [address] [address] May, [facility] [address] [place] [id number] [place] [address] May, Herpes zoster without compli cation B02.9 and Stage 3 chronic kidney disease N18.3 [facility] [address] [place] [id number] [address] [place] [id number] Mar, Essential hypertension I10 [facility] [address] [place] [id number] [place] [phone] Feb, [facility] [address] [place] [id number] [address] [place] [phone] Feb, [facility] [address] [address] Feb, Essential hypertension I10 a nd Acute midline low back pain without sciatica M54.5 [facility] [address] [address] December, Insect bite (nonvenomous) of lower back and pelvis, initial encounter S30.860A and Bitten or stung by nonvenomous insect and other nonvenomous arthropods, initial encounter W57.XXXA [facility] [address] [address] Nov, Pleurisy R09.1 [place] [address] [address] Nov, [facility] [address] [address] Oct, Hypoxemia R09.02 and Fatigue , unspecified type R53.83 [place] [address] [address] 12 Sep, 2017 Other chronic gastritis with out hemorrhage K29.50 ; Gastroesophageal reflux disease without esophagitis K21.9 ; Hyperlipidemia, unspecified hyperlipidemia E78.5 and Arthralgia, unspecified joint M25.50 [facility] [address] [address] Aug, Hypertriglyceridemia E78.1 [place] [address] [address] 02 May, 2017 Anxiety F41.9 [place] [address] [address] 21 Apr, 2017 Hyperlipidemia, unspecified hyperlipidemia E78.5 ; Gastroesophageal reflux disease without esophagitis K21.9 ; Forgetfulness R68.89 ; Essential hypertension I10 and Anxiety F41.9 [place] [address] [address] 14 Apr, 2017 Hypertriglyceridemia E78.1 [place] [address] [place] [address] Mar, Medicare annual wellness vis it, subsequent Z00.00 ; Hyperlipidemia, unspecified hyperlipidemia E78.5 and Essential hypertension I10 [place] [address] [address] Mar, Forgetfulness R68.89 ; Fatig ue, unspecified type R53.83 and Essential hypertension I10 [place] [address] [address] Mar, Primary osteoarthritis, 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 and Strain of left trapezius muscle, initial encounter S46.812A [place] [address] Feb, Left wrist pain M25.532 [place] [address] [address] 07 Feb, 2017 Left wrist pain M25.532 [place] [address] [address] December, Hypertriglyceridemia E78.1 ; Encounter for immunization Z23 ; Forgetfulness R68.89 and Fatigue, unspecified type R53.83 [place] [address] [address] Jun, Forgetfulness R68.89 and Rhi nitis, unspecified type J31.0 [place] [address] [address] May, [address] [address] May, Hypoxemia R09.02 ; Memory lo ss R41.3 ; Arthralgia, unspecified joint M25.50 and Rhinitis, unspecified type J31.0 [place] [address] [place] [id number] [place] [address] Mar, Vertigo R42 ; Orthostatic hy potension I95.1 and Chronic gastritis without bleeding, unspecified gastritis type K29.50 [place] [address] [facility] [id number] [address] [place] [phone] Feb, [place] [address] [address] Feb, Forgetfulness R68.89 [place] [address] [place] [id number] [place] [address] Jan, [place] [address] [address] Jan, Gastroesophageal reflux dise ase without esophagitis K21.9 ; Fatigue, unspecified type R53.83 ; Weakness R53.1 ; Forgetfulness R68.89 ; Hyperlipidemia, unspecified hyperlipidemia E78.5 and Hearing abnormally acute, unspecified laterality H93.239 [place] [address] [address] Oct, [place] [address] [address] Aug, Upper respiratory tract infe ction, unspecified type J06.9 [place] [address] [address] Aug, [place] [address] [place] [id number] [place] [address] Jun, Acute idiopathic gout, unspe cified site M10.00 ; Encounter for immunization Z23 ; Hyperlipidemia, unspecified hyperlipidemia E78.5 ; Gastroesophageal reflux disease without esophagitis K21.9 and Fatigue, unspecified type R53.83 [place] [address] [place] [id number] [address] [place] [address] 17 Jan, 2015 Esophageal reflux 530.81 and Irritable bowel syndrome 564.1 [place] [address] [place] [id number] [address] [place] [address] 15 Jan, 2015 [place] [address] [place] [id number] [place] [address] Jan, Gastritis 535.50 ; Hx of col onic polyp V12.72 and Positional vertigo 386.11 [facility] [address] [facility] [id number] [address] [place] [address] Jan, [facility] [address] [facility] [id number] [address] [place] [address] Jan, Dizziness 780.4 and Nausea & vomiting 787.01 [facility] [address] [facility] [id number] [address] [place] [address] Nov, [facility] [address] [id number] [address] [place] [phone] Nov, [facility] [address] [facility] [id number] [address] [place] [phone] Nov, [facility] [address] [facility] [id number] [address] [place] [phone] Nov, [facility] [address] [facility] [id number] [address] [place] [phone] Oct, [facility] [address] [facility] [id number] [address] [place] [phone] Oct, [facility] [address] [facility] [id number] [address] [place] [phone] Oct, [facility] [address] [facility] [id number] [address] [place] [phone] Aug, [facility] [address] [facility] [id number] [address] [place] [phone] Aug, [facility] [address] [facility] [id number] [address] [place] [phone] Aug, [facility] [address] [facility] [id number] [address] [place] [id number] Jul, [facility] [address] [facility] [id number] [address] [place] [phone] Jul, [facility] [address] [facility] [id number] [address] [place] [phone] Jul, [facility] [address] [id number] [address] [place] [address], [place] [address] Jul, [facility] [address] [id number] [address] [place] [address], [place] [address] Jul, [facility] [address] [id number] [address] [place] [address], [place] [address] Jul, [facility] [address] [id number] [address] [place] [address], [place] [address] Jul, [facility] [address] [id number] [address] [place] [address], [place] [address] Jul, [facility] [address] [id number] [address] [place] [address], [place] [address] Jul, [facility] [address] [id number] [address] [place] [address], [place] [address] Jul, [facility] [address] [id number] [address] [place] [address], [place] [address] Jul, [facility] [address] [id number] [address] [place] [address], [place] [address] Jun, [facility] [address] [id number] [address] [place] [address], [place] [address] 14 Jun, 2014 [facility] [address] [id number] [address] [place] [address], [place] [address] Jun, [facility] [address] [id number] [address] [place] [address], [place] [address] 10 Jun, 2014 [facility] [address] [id number] [address] [place] [address], [place] [address] 17 Apr, 2014 [facility] [address] [id number] [address] [place] [address], [place] [address] 17 Apr, 2014 [facility] [address] [id number] [address] [place] [address], [place] [address] 17 Apr, 2014 [facility] [address] [id number] [address] [place] [address], [place] [address] Apr, [facility] [address] [id number] [address] [place] [address], [place] [address] Feb, [facility] [address] [id number] [address] [place] [address], [place] [address] Feb, [facility] [address] [id number] [address] [place] [address], [place] [address] Feb, [facility] [address] [id number] [address] [place] [address], [place] [address] Feb, [facility] [address] [id number] [address] [place] [address], [place] [address] Jan, [facility] [address] [id number] [address] [place] [address], [place] [address] Jan, [facility] [address] [id number] [address] [place] [address], [place] [address] Jan, [facility] [address] [id number] [address] [place] [address], [place] [address] Jan, [facility] [address] [id number] [address] [place] [address], [place] [address] December, [facility] [address] [id number] [address] [place] [address], [place] [address] December, [facility] [address] [id number] [address] [place] [address], [place] [address] December, [facility] [address] [id number] [address] [place] [address], [place] [address] December, [facility] [address] [id number] [address] [place] [address], [place] [address] December, [facility] [address] [id number] [address] [place] [address], [place] [address] December, [facility] [address] [id number] [address] [place] [address], [place] [address] Oct, [facility] [address] [id number] [address] [place] [address], [place] [address] Oct, [facility] [address] [id number] [address] [place] [address], [place] [address] Sep, [facility] [address] [id number] [address] [place] [address], [place] [address] Sep, [facility] [address] [id number] [address] [place] [address], [place] [address] Aug, [facility] [address] [id number] [address] [place] [address], [place] [address] Aug, [facility] [address] [id number] [address] [place] [address], [place] [address] Jul, [facility] [address] [id number] [address] [place] [address], [place] [address] Jul, [facility] [address] [id number] [address] [place] [address], [place] [address] May, [facility] [address] [id number] [address] [place] [address], [place] [address] May, [facility] [address] [id number] [address] [place] [id number] May, [facility] [address] [id number] [address] [place] [address], [place] [address] Apr, [facility] [address] [id number] [address] [place] [phone] Feb, [facility] [address] [id number] [address] [place] [address], [place] [address] Feb, [facility] [address] [id number] [address] [place] [address], [place] [address] Feb, [facility] [address] [id number] [address] [place] [address], [place] [address] Feb, [facility] [address] [id number] [address] [place] [id number] Jan, [facility] [address] [id number] [address] [place] [address], [place] [address] Jan, [facility] [address] [id number] [address] [place] [address], [place] [address] December, [facility] [address] [id number] [address] [place] [address], [place] [address] Nov, [facility] [address] [id number] [address] [place] [address], [place] [address] Nov, [facility] [address] [id number] [address] [place] [address], [place] [address] Oct, [facility] [address] [id number] [address] [place] [address], [place] [address] Oct, [facility] [address] [id number] [address] [place] [address], [place] [address] Oct, [facility] [address] [id number] [address] [place] [address], [place] [address] Aug, [facility] [address] [id number] [address] [place] [address], [place] [address] Aug, [facility] [address] [id number] [address] [place] [address], [place] [address] Jul, [facility] [address] [id number] [address] [place] [address], [place] [address] Jul, [facility] [address] [id number] [address] [place] [address], [place] [address] Jul, [facility] [address] [id number] [address] [place] [address], [place] [address] Jul, [facility] [address] [id number] [address] [place] [address], [place] [address] Jun, [facility] [address] [id number] [address] [place] [address], [place] [address] Jun, [facility] [address] [id number] [address] [place] [address], [place] [address] May, [facility] [address] [id number] [address] [place] [address], [place] [address] Mar, [facility] [address] [id number] [address] [place] [address], [place] [address] Mar, [facility] [address] [id number] [address] [place] [address], [place] [address] Jan, [facility] [address] [id number] [address] [place] [address], [place] [address] Jan, [facility] [address] [id number] [address] [place] [address], [place] [address] December, [facility] [address] [id number] [address] [place] [address], [place] [address] December, [facility] [address] [id number] [address] [place] [address], [place] [address] December, [facility] [address] [id number] [address] [place] [address], [place] [address] December, [facility] [address] [id number] [address] [place] [address], [place] [address] Sep, [facility] [address] [id number] [address] [place] [address], [place] [address] Sep, [facility] [address] [id number] [address] [place] [address], [place] [address] Jun, [facility] [address] [id number] [address] [place] [address], [place] [address] 14 Jun, 2011 [facility] [address] [id number] [address] [place] [address], [place] [address] 18 May, 2011 [facility] [address] [id number] [address] [place] [address], [place] [address] Feb, [facility] [address] [id number] [address] [place] [address], [place] [address] Mar, [facility] [address] [facility] [id number] [address] [place] [id number] Nov, [facility] [address] [facility] [id number] [address] [place] [phone] Sep, [facility] [address] [facility] [id number] [address] [place] [phone] Jun, [facility] [address] [facility] [id number] [address] [place] [address] Jun, [facility] [address] [facility] [id number] [address] [place] [phone] May, [facility] [address] [facility] [id number] [address] [place] [phone] Mar, [facility] [address] [facility] [id number] [address] [place] [id number] December, IMMUNIZATIONS No Known Immunizations SOCIAL HISTORY [...]
--- OUTSIDE RECORDS SUMMARY | 2020-02-28 02:36 | XMS REPORT ---
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 Active 308007931 Problem Essential hypertension I10 Active 68640693 Problem Stage 3 chronic kidney disease N18.3 Active 863307112 Problem Memory loss R41.3 Active 81330403 Problem Primary insomnia F51.01 Active 397 2004 Problem Nocturnal hypoxia G47.34 Active 38 2542332 Problem Hyperlipidemia, unspecified hyperlipidemia E78.5 Active 74095920 Problem Gastroesophageal reflux disease without esophagitis K21.9 Active 195696306 Problem Anxiety F41.9 Active 01951143 Problem Other chronic gastritis without hemorrhage K29.50 Active 4830453 ALLERGIES No Information ENCOUNTERS Encounter Location Date Diagnosis [place] [id number] [facility] [id number] [address] [place] [address] Nov, [facility] [address] [facility] [id number] [address] [place] [address] Oct, [place] [address] [facility] [id number] [address] [place] [address] Oct, [place] [address] [place] [id number] [address] [place] [address] Oct, CN palsy, left eye H49.22 ; Primary insomnia F51.01 ; Pulsatile tinnitus of left ear H93.A2 and Seborrheic keratosis L82.1 [facility] [address] [place] [id number] [address] [place] [address] Aug, CN palsy, left eye H49.22 ; Essential hypertension I10 ; Arthralgia, unspecified joint M25.50 and Primary insomnia F51.01 [facility] [address] [place] [id number] [place] [address] Jul, Cranial nerve palsy G52.9 [facility] [address] [place] [id number] [place] [address] Jul, Cranial nerve palsy G52.9 ; Stage 3 chronic kidney disease N18.3 ; Family history of embolic stroke Z82.3 and Numbness of left hand R20.0 [place] [address] [place] [id number] [place] [address] Jun, Anxiety F41.9 and Essential hypertension I10 [place] [address] [address] Jun, [facility] [address] [place] [id number] [place] [address] Jun, Essential hypertension I10 [place] [address] [address] May, [facility] [address] [place] [id number] [place] [address] May, Herpes zoster without compli cation B02.9 and Stage 3 chronic kidney disease N18.3 [facility] [address] [place] [id number] [address] [place] [address] Mar, Essential hypertension I10 [facility] [address] [place] [id number] [place] [address] Feb, [facility] [address] [place] [id number] [address] [place] [address] Feb, [facility] [address] [address] Feb, Essential hypertension I10 a nd Acute midline low back pain without sciatica M54.5 [facility] [address] [address] December, Insect bite (nonvenomous) of lower back and pelvis, initial encounter S30.860A and Bitten or stung by nonvenomous insect and other nonvenomous arthropods, initial encounter W57.XXXA [facility] [address] [address] Nov, Pleurisy R09.1 [place] [address] [address] Nov, [facility] [address] [address] Oct, Hypoxemia R09.02 and Fatigue , unspecified type R53.83 [place] [address] [address] 12 Sep, 2017 Other chronic gastritis with out hemorrhage K29.50 ; Gastroesophageal reflux disease without esophagitis K21.9 ; Hyperlipidemia, unspecified hyperlipidemia E78.5 and Arthralgia, unspecified joint M25.50 [facility] [address] [address] Aug, Hypertriglyceridemia E78.1 [place] [address] [address] 02 May, 2017 Anxiety F41.9 [place] [address] [address] 21 Apr, 2017 Hyperlipidemia, unspecified hyperlipidemia E78.5 ; Gastroesophageal reflux disease without esophagitis K21.9 ; Forgetfulness R68.89 ; Essential hypertension I10 and Anxiety F41.9 [place] [address] [address] 14 Apr, 2017 Hypertriglyceridemia E78.1 [place] [address] [place] [address] Mar, Medicare annual wellness vis it, subsequent Z00.00 ; Hyperlipidemia, unspecified hyperlipidemia E78.5 and Essential hypertension I10 [place] [address] [address] Mar, Forgetfulness R68.89 ; Fatig ue, unspecified type R53.83 and Essential hypertension I10 [place] [address] [address] Mar, Primary osteoarthritis, 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 and Strain of left trapezius muscle, initial encounter S46.812A [place] [address] Feb, Left wrist pain M25.532 [place] [address] [address] 07 Feb, 2017 Left wrist pain M25.532 [place] [address] [address] December, Hypertriglyceridemia E78.1 ; Encounter for immunization Z23 ; Forgetfulness R68.89 and Fatigue, unspecified type R53.83 [place] [address] [address] Jun, Forgetfulness R68.89 and Rhi nitis, unspecified type J31.0 [place] [address] [address] May, [address] [address] May, Hypoxemia R09.02 ; Memory lo ss R41.3 ; Arthralgia, unspecified joint M25.50 and Rhinitis, unspecified type J31.0 [place] [address] [place] [id number] [address] [place] [address] Mar, Vertigo R42 ; Orthostatic hy potension I95.1 and Chronic gastritis without bleeding, unspecified gastritis type K29.50 [place] [address] [facility] [id number] [address] [place] [address] Feb, [place] [address] [address] Feb, Forgetfulness R68.89 [place] [address] [place] [id number] [place] [address] Jan, [place] [address] [address] Jan, Gastroesophageal reflux dise ase without esophagitis K21.9 ; Fatigue, unspecified type R53.83 ; Weakness R53.1 ; Forgetfulness R68.89 ; Hyperlipidemia, unspecified hyperlipidemia E78.5 and Hearing abnormally acute, unspecified laterality H93.239 [place] [address] [address] Oct, [place] [address] [address] Aug, Upper respiratory tract infe ction, unspecified type J06.9 [place] [address] [address] Aug, [place] [address] [place] [id number] [place] [address] Jun, Acute idiopathic gout, unspe cified site M10.00 ; Encounter for immunization Z23 ; Hyperlipidemia, unspecified hyperlipidemia E78.5 ; Gastroesophageal reflux disease without esophagitis K21.9 and Fatigue, unspecified type R53.83 [place] [address] [place] [id number] [address] [place] [address] 17 Jan, 2015 Esophageal reflux 530.81 and Irritable bowel syndrome 564.1 [place] [address] [place] [id number] [address] [place] [address] 15 Jan, 2015 [place] [address] [place] [id number] [place] [address] Jan, Gastritis 535.50 ; Hx of col onic polyp V12.72 and Positional vertigo 386.11 [facility] [address] [facility] [id number] [address] [place] [address] Jan, [facility] [address] [facility] [id number] [address] [place] [address] Jan, Dizziness 780.4 and Nausea & vomiting 787.01 [facility] [address] [facility] [id number] [address] [place] [address] Nov, [facility] [address] [id number] [address] [place] [address] Nov, [facility] [address] [facility] [id number] [address] [place] [address] Nov, [facility] [address] [facility] [id number] [address] [place] [address] Nov, [facility] [address] [facility] [id number] [address] [place] [address] Oct, [facility] [address] [facility] [id number] [address] [place] [address] Oct, [facility] [address] [facility] [id number] [address] [place] [address] Oct, [facility] [address] [facility] [id number] [address] [place] [address] Aug, [facility] [address] [facility] [id number] [address] [place] [address] Aug, [facility] [address] [facility] [id number] [address] [place] [address] Aug, [facility] [address] [facility] [id number] [address] [place] [address] Jul, [facility] [address] [facility] [id number] [address] [place] [address] Jul, [facility] [address] [facility] [id number] [address] [place] [address] Jul, [facility] [address] [id number] [address] [place] [address], [place] [address] Jul, [facility] [address] [id number] [address] [place] [address], [place] [address] Jul, [facility] [address] [id number] [address] [place] [address], [place] [address] Jul, [facility] [address] [id number] [address] [place] [address], [place] [address] Jul, [facility] [address] [id number] [address] [place] [address], [place] [address] Jul, [facility] [address] [id number] [address] [place] [address], [place] [address] Jul, [facility] [address] [id number] [address] [place] [address], [place] [address] Jul, [facility] [address] [id number] [address] [place] [address], [place] [address] Jul, [facility] [address] [id number] [address] [place] [address], [place] [address] Jun, [facility] [address] [id number] [address] [place] [address], [place] [address] 14 Jun, 2014 [facility] [address] [id number] [address] [place] [address], [place] [address] Jun, [facility] [address] [id number] [address] [place] [address], [place] [address] 10 Jun, 2014 [facility] [address] [id number] [address] [place] [address], [place] [address] 17 Apr, 2014 [facility] [address] [id number] [address] [place] [address], [place] [address] 17 Apr, 2014 [facility] [address] [id number] [address] [place] [address], [place] [address] 17 Apr, 2014 [facility] [address] [id number] [address] [place] [address], [place] [address] Apr, [facility] [address] [id number] [address] [place] [address], [place] [address] Feb, [facility] [address] [id number] [address] [place] [address], [place] [address] Feb, [facility] [address] [id number] [address] [place] [address], [place] [address] Feb, [facility] [address] [id number] [address] [place] [address], [place] [address] Feb, [facility] [address] [id number] [address] [place] [address], [place] [address] Jan, [facility] [address] [id number] [address] [place] [address], [place] [address] Jan, [facility] [address] [id number] [address] [place] [address], [place] [address] Jan, [facility] [address] [id number] [address] [place] [address], [place] [address] Jan, [facility] [address] [id number] [address] [place] [address], [place] [address] December, [facility] [address] [id number] [address] [place] [address], [place] [address] December, [facility] [address] [id number] [address] [place] [address], [place] [address] December, [facility] [address] [id number] [address] [place] [address], [place] [address] December, [facility] [address] [id number] [address] [place] [address], [place] [address] December, [facility] [address] [id number] [address] [place] [address], [place] [address] December, [facility] [address] [id number] [address] [place] [address], [place] [address] Oct, [facility] [address] [id number] [address] [place] [address], [place] [address] Oct, [facility] [address] [id number] [address] [place] [address], [place] [address] Sep, [facility] [address] [id number] [address] [place] [address], [place] [address] Sep, [facility] [address] [id number] [address] [place] [address], [place] [address] Aug, [facility] [address] [id number] [address] [place] [address], [place] [address] Aug, [facility] [address] [id number] [address] [place] [address], [place] [address] Jul, [facility] [address] [id number] [address] [place] [address], [place] [address] Jul, [facility] [address] [id number] [address] [place] [address], [place] [address] May, [facility] [address] [id number] [address] [place] [address], [place] [address] May, [facility] [address] [id number] [address] [place] [address] May, [facility] [address] [id number] [address] [place] [address], [place] [address] Apr, [facility] [address] [id number] [address] [place] [address] Feb, [facility] [address] [id number] [address] [place] [address], [place] [address] Feb, [facility] [address] [id number] [address] [place] [address], [place] [address] Feb, [facility] [address] [id number] [address] [place] [address], [place] [address] Feb, [facility] [address] [id number] [address] [place] [address] Jan, [facility] [address] [id number] [address] [place] [address], [place] [address] Jan, [facility] [address] [id number] [address] [place] [address], [place] [address] December, [facility] [address] [id number] [address] [place] [address], [place] [address] Nov, [facility] [address] [id number] [address] [place] [address], [place] [address] Nov, [facility] [address] [id number] [address] [place] [address], [place] [address] Oct, [facility] [address] [id number] [address] [place] [address], [place] [address] Oct, [facility] [address] [id number] [address] [place] [address], [place] [address] Oct, [facility] [address] [id number] [address] [place] [address], [place] [address] Aug, [facility] [address] [id number] [address] [place] [address], [place] [address] Aug, [facility] [address] [id number] [address] [place] [address], [place] [address] Jul, [facility] [address] [id number] [address] [place] [address], [place] [address] Jul, [facility] [address] [id number] [address] [place] [address], [place] [address] Jul, [facility] [address] [id number] [address] [place] [address], [place] [address] Jul, [facility] [address] [id number] [address] [place] [address], [place] [address] Jun, [facility] [address] [id number] [address] [place] [address], [place] [address] Jun, [facility] [address] [id number] [address] [place] [address], [place] [address] May, [facility] [address] [id number] [address] [place] [address], [place] [address] Mar, [facility] [address] [id number] [address] [place] [address], [place] [address] Mar, [facility] [address] [id number] [address] [place] [address], [place] [address] Jan, [facility] [address] [id number] [address] [place] [address], [place] [address] Jan, [facility] [address] [id number] [address] [place] [address], [place] [address] December, [facility] [address] [id number] [address] [place] [address], [place] [address] December, [facility] [address] [id number] [address] [place] [address], [place] [address] December, [facility] [address] [id number] [address] [place] [address], [place] [address] December, [facility] [address] [id number] [address] [place] [address], [place] [address] Sep, [facility] [address] [id number] [address] [place] [address], [place] [address] Sep, [facility] [address] [id number] [address] [place] [address], [place] [address] Jun, [facility] [address] [id number] [address] [place] [address], [place] [address] 14 Jun, 2011 [facility] [address] [id number] [address] [place] [address], [place] [address] 18 May, 2011 [facility] [address] [id number] [address] [place] [address], [place] [address] Feb, [facility] [address] [id number] [address] [place] [address], [place] [address] Mar, [facility] [address] [facility] [id number] [address] [place] [address] Nov, [facility] [address] [facility] [id number] [address] [place] [address] Sep, [facility] [address] [facility] [id number] [address] [place] [address] Jun, [facility] [address] [facility] [id number] [address] [place] [address] Jun, [facility] [address] [facility] [id number] [address] [place] [address] May, [facility] [address] [facility] [id number] [address] [place] [address] Mar, [facility] [address] [facility] [id number] [address] [place] [address] December, IMMUNIZATIONS No Known Immunizations SOCIAL HISTORY [...]
--- OUTSIDE RECORDS SUMMARY | 2020-02-28 02:36 | XMS REPORT ---
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 Active 258653063 Problem Essential hypertension I10 Active 88781018 Problem Stage 3 chronic kidney disease N18.3 Active 328346557 Problem Memory loss R41.3 Active 51726840 Problem Primary insomnia F51.01 Active 397 2004 Problem Nocturnal hypoxia G47.34 Active 38 6193442 Problem Hyperlipidemia, unspecified hyperlipidemia E78.5 Active 03761917 Problem Gastroesophageal reflux disease without esophagitis K21.9 Active 562726874 Problem Anxiety F41.9 Active 17728091 Problem Other chronic gastritis without hemorrhage K29.50 Active 8215126 ALLERGIES No Information ENCOUNTERS Encounter Location Date Diagnosis [place] [id number] [place] [address] Nov, [facility] [id number] [place] [address] Oct, [facility] [id number] [place] [address] Oct, [place] [id number] [id number] [place] [address] Oct, CN palsy, left eye H49.22 ; Primary insomnia F51.01 ; Pulsatile tinnitus of left ear H93.A2 and Seborrheic keratosis L82.1 [facility] [id number] [place] [address] Aug, CN palsy, left eye H49.22 ; Essential hypertension I10 ; Arthralgia, unspecified joint M25.50 and Primary insomnia F51.01 [facility] [address] [facility] [id number] [address] [place] [address] Jul, Cranial nerve palsy G52.9 [facility] [address] [id number] [place] [address] Jul, Cranial nerve palsy G52.9 ; Stage 3 chronic kidney disease N18.3 ; Family history of embolic stroke Z82.3 and Numbness of left hand R20.0 [place] [address] [id number] [place] [address] Jun, Anxiety F41.9 and Essential hypertension I10 [place] [address] [id number] [place] [address] Jun, [place] [address] [id number] [place] [address] Jun, Essential hypertension I10 [facility] [id number] [place] [address] May, [facility] [id number] [place] [address] May, Herpes zoster without compli cation B02.9 and Stage 3 chronic kidney disease N18.3 [facility] [address] [id number] [place] [address] Mar, Essential hypertension I10 [facility] [address] [facility] [id number] [address] [place] [address] Feb, [facility] [address] [facility] [id number] [address] [place] [address] Feb, [facility] [address] [facility] [id number] [address] [place] [address] Feb, Essential hypertension I10 a nd Acute midline low back pain without sciatica M54.5 [facility] [id number] [place] [address] December, Insect bite (nonvenomous) of lower back and pelvis, initial encounter S30.860A and Bitten or stung by nonvenomous insect and other nonvenomous arthropods, initial encounter W57.XXXA [facility] [address] [address] Nov, Pleurisy R09.1 [place] [address] [address] Nov, [place] [address] [address] Oct, Hypoxemia R09.02 and Fatigue , unspecified type R53.83 [place] [address] [address] Sep, Other chronic gastritis with out hemorrhage K29.50 ; Gastroesophageal reflux disease without esophagitis K21.9 ; Hyperlipidemia, unspecified hyperlipidemia E78.5 and Arthralgia, unspecified joint M25.50 [place] [address] [address] Aug, Hypertriglyceridemia E78.1 [place] [address] [address] May, Anxiety F41.[address] [address] Apr, Hyperlipidemia, unspecified hyperlipidemia E78.5 ; Gastroesophageal reflux disease without esophagitis K21.9 ; Forgetfulness R68.89 ; Essential hypertension I10 and Anxiety F41.9 [place] [address] [address] Apr, Hypertriglyceridemia E78.1 [place] [address] [address] Mar, Medicare annual wellness vis it, subsequent Z00.00 ; Hyperlipidemia, unspecified hyperlipidemia E78.5 and Essential hypertension I10 [place] [address] [id number] [place] [address] Mar, Forgetfulness R68.89 ; Fatig ue, unspecified type R53.83 and Essential hypertension I10 [place] [address] [place] [id number] [place] [address] Mar, Primary osteoarthritis, 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 and Strain of left trapezius muscle, initial encounter S46.812A [place] [address] [id number] [place] [address] Feb, Left wrist pain M25.532 [place] [address] [address] Feb, Left wrist pain M25.532 [place] [address] [address] December, Hypertriglyceridemia E78.1 ; Encounter for immunization Z23 ; Forgetfulness R68.89 and Fatigue, unspecified type R53.83 [place] [address] [address] Jun, Forgetfulness R68.89 and Rhi nitis, unspecified type J31.0 [place] [address] [address] May, [place] [address] [address] May, Hypoxemia R09.02 ; Memory lo ss R41.3 ; Arthralgia, unspecified joint M25.50 and Rhinitis, unspecified type J31.0 [place] [address] [place] [address] [id number] [place] [address] Mar, Vertigo R42 ; Orthostatic hy potension I95.1 and Chronic gastritis without bleeding, unspecified gastritis type K29.50 [place] [address] [place] [id number] [place] [address] Feb, [place] [address] [place] [id number] [place] [address] Feb, Forgetfulness R68.89 [place] [address] [address] 24 Jan, [address] [address] Jan, Gastroesophageal reflux dise ase without esophagitis K21.9 ; Fatigue, unspecified type R53.83 ; Weakness R53.1 ; Forgetfulness R68.89 ; Hyperlipidemia, unspecified hyperlipidemia E78.5 and Hearing abnormally acute, unspecified laterality H93.[address] [address] Oct, [address] [address] Aug, Upper respiratory tract infe ction, unspecified type J06.[address] [address] Aug, [address] [address] Jun, Acute idiopathic gout, unspe cified site M10.00 ; Encounter for immunization Z23 ; Hyperlipidemia, unspecified hyperlipidemia E78.5 ; Gastroesophageal reflux disease without esophagitis K21.9 and Fatigue, unspecified type R53.83 [place] [id number] [place] [address] 17 Jan, 2015 Esophageal reflux 530.81 and Irritable bowel syndrome 564.[address] [address] Jan, [address] [address] Jan, Gastritis 535.50 ; Hx of col onic polyp V12.72 and Positional vertigo 386.[address] [place] [address] Jan, [facility] [place] [facility] [address] [id number] [address] [place] [address] Jan, Dizziness 780.4 and Nausea & vomiting 787.01 [facility] [address] [id number] [address] [place] [address] Nov, [facility] [place] [facility] [address] [id number] [address] [place] [address] Nov, [facility] [place] [facility] [address] [id number] [address] [place] [address], [place] [address] Nov, [facility] [place] [facility] [address] [id number] [address] [place] [address] Nov, [facility] [place] [facility] [address] [id number] [address] [place] [address] Oct, [facility] [place] [facility] [address] [id number] [address] [place] [address] Oct, [facility] [place] [facility] [address] [id number] [address] [place] [address] Oct, [facility] [place] [facility] [address] [id number] [address] [place] [address] Aug, [facility] [place] [facility] [address] [id number] [address] [place] [address] Aug, [facility] [place] [facility] [address] [id number] [address] [place] [address] Aug, [facility] [place] [facility] [address] [id number] [address] [place] [address] Jul, [facility] [place] [facility] [address] [id number] [address] [place] [address] Jul, [facility] [place] [facility] [address] [id number] [address] [place] [address] Jul, [facility] [place] [facility] [address] [id number] [address] [place] [address] Jul, [facility] [address] [id number] [address] [place] [address], [place] [address] Jul, [facility] [place] [facility] [address] [id number] [address] [place] [address], [place] [address] 08 Jul, 2014 [facility] [address] [id number] [address] [place] [address], [place] [address] Jul, [facility] [place] [facility] [address] [id number] [address] [place] [address], [place] [address] Jul, [facility] [place] [facility] [address] [id number] [address] [place] [address], [place] [address] Jul, [facility] [place] [facility] [address] [id number] [address] [place] [address], [place] [address] Jul, [facility] [place] [facility] [address] [id number] [address] [place] [address], [place] [address] Jul, [facility] [place] [facility] [address] [id number] [address] [place] [address], [place] [address] 14 Jun, 2014 [facility] [place] [facility] [address] [id number] [address] [place] [address], [place] [address] 14 Jun, 2014 [facility] [place] [facility] [address] [id number] [address] [place] [address], [place] [address] Jun, [facility] [place] [facility] [address] [id number] [address] [place] [address], [place] [address] Jun, [facility] [place] [facility] [address] [id number] [address] [place] [address], [place] [address] 17 Apr, 2014 [facility] [place] [facility] [address] [id number] [address] [place] [address], [place] [address] 17 Apr, 2014 [facility] [place] [facility] [address] [id number] [address] [place] [address], [place] [address] 17 Apr, 2014 [facility] [place] [facility] [address] [id number] [address] [place] [address], [place] [address] 17 Apr, 2014 [facility] [place] [facility] [address] [id number] [facility] [place] [address] Feb, [facility] [address] [id number] [address] [place] [address], [place] [address] Feb, [facility] [address] [id number] [facility] [place] [address] Feb, [facility] [address] [id number] [address] [place] [address], [place] [address] Feb, [facility] [address] [id number] [address] [place] [address], [place] [address] Jan, [facility] [address] [id number] [address] [place] [address], [place] [address] Jan, [facility] [address] [id number] [address] [place] [address], [place] [address] Jan, [facility] [address] [id number] [address] [place] [address], [place] [address] Jan, [facility] [address] [id number] [address] [place] [address], [place] [address] December, [facility] [address] [id number] [address] [place] [address], [place] [address] December, [facility] [place] [facility] [address] [id number] [address] [place] [address], [place] [address] December, [facility] [address] [id number] [address] [place] [address], [place] [address] December, [facility] [address] [id number] [address] [place] [address], [place] [address] December, [facility] [address] [id number] [address] [place] [address], [place] [address] December, [facility] [address] [id number] [address] [place] [address], [place] [address] Oct, [facility] [address] [id number] [address] [place] [address], [place] [address] Oct, [facility] [address] [id number] [address] [place] [address], [place] [address] Sep, [facility] [address] [id number] [address] [place] [address], [place] [address] Sep, [facility] [address] [id number] [address] [place] [address], [place] [address] Aug, [facility] [address] [id number] [address] [place] [address], [place] [address] Aug, [facility] [address] [id number] [address] [place] [address], [place] [address] Jul, [facility] [address] [id number] [address] [place] [address], [place] [address] Jul, [facility] [address] [id number] [address] [place] [address], [place] [address] May, [facility] [address] [id number] [address] [place] [address], [place] [address] May, [facility] [address] [id number] [address] [place] [address], [place] [address] May, [facility] [address] [id number] [address] [place] [address], [place] [address] Apr, [facility] [address] [id number] [address] [place] [address], [place] [address] Feb, [facility] [address] [id number] [address] [place] [address] Feb, [facility] [address] [id number] [address] [place] [address], [place] [address] Feb, [facility] [address] [id number] [address] [place] [address], [place] [address] Feb, [facility] [address] [id number] [address] [place] [address], [place] [address] Jan, [facility] [address] [id number] [address] [place] [address], [place] [address] Jan, [facility] [address] [id number] [address] [place] [address], [place] [address] December, [facility] [address] [id number] [address] [place] [address], [place] [address] 16 Nov, 2012 [facility] [address] [id number] [address] [place] [address], [place] [address] 04 Nov, 2012 [facility] [address] [id number] [address] [place] [address], [place] [address] 13 Oct, 2012 [facility] [address] [id number] [address] [place] [address], [place] [address] 06 Oct, 2012 [facility] [address] [id number] [address] [place] [address], [place] [address] Oct, [facility] [address] [id number] [address] [place] [address], [place] [address] Aug, [facility] [address] [id number] [address] [place] [address], [place] [address] Aug, [facility] [address] [id number] [address] [place] [address], [place] [address] Jul, [facility] [address] [id number] [address] [place] [address], [place] [address] Jul, [facility] [address] [id number] [address] [place] [address], [place] [address] Jul, [facility] [address] [id number] [address] [place] [address], [place] [address] Jul, [facility] [address] [id number] [address] [place] [address], [place] [address] Jun, [facility] [address] [id number] [address] [place] [address], [place] [address] Jun, [facility] [address] [id number] [address] [place] [address], [place] [address] May, [facility] [place] [facility] [address] [id number] [address] [place] [address], [place] [address] Mar, [facility] [address] [id number] [address] [place] [address], [place] [address] Mar, [facility] [address] [id number] [address] [place] [address], [place] [address] Jan, [facility] [address] [id number] [address] [place] [address], [place] [address] Jan, [facility] [address] [id number] [address] [place] [address], [place] [address] December, [facility] [address] [id number] [address] [place] [address], [place] [address] December, [facility] [address] [id number] [address] [place] [address], [place] [address] December, [facility] [address] [id number] [address] [place] [address], [place] [address] December, [facility] [address] [id number] [address] [place] [address], [place] [address] Sep, [facility] [address] [id number] [address] [place] [address], [place] [address] Sep, [facility] [address] [id number] [address] [place] [address], [place] [address] 14 Jun, 2011 [facility] [address] [id number] [address] [place] [address], [place] [address] 14 Jun, 2011 [facility] [address] [id number] [address] [place] [address], [place] [address] 18 May, 2011 [facility] [address] [id number] [address] [place] [address], [place] [address] Feb, [facility] [address] [id number] [address] [place] [address], [place] [address] 10 Mar, 2010 [facility] [address] [id number] [address] [place] [address] Nov, [facility] [address] [facility] [id number] [address] [place] [address] Sep, [facility] [address] [facility] [id number] [address] [place] [address] Jun, [facility] [address] [facility] [id number] [address] [place] [address] Jun, [facility] [address] [facility] [id number] [address] [place] [address] May, [facility] [address] [facility] [id number] [address] [place] [address] Mar, [facility] [address] [facility] [id number] [address] [place] [address] December, IMMUNIZATIONS No Known Immunizations SOCIAL HISTORY Never Assessed REASON FOR VISIT PLAN OF CARE VITAL SIGNS Blood pressure systolic 124 mmHg 2014-10-15 Blood pressure diastolic 76 mmHg 2014-10-15 MEDICATIONS Unknown Medications RESULTS No Results PROCEDURES Procedure Date Ordered Result Body Site DRAIN/INJECT, JOINT/BURSA October 15, 2014 INSTRUCTIONS MEDICATIONS ADMINISTERED No Known Medications [...]
--- OUTSIDE RECORDS SUMMARY | 2020-02-28 02:36 | XMS REPORT ---
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 Active 835739711 Problem Essential hypertension I10 Active 00421995 Problem Stage 3 chronic kidney disease N18.3 Active 816110043 Problem Memory loss R41.3 Active 07786942 Problem Primary insomnia F51.01 Active 397 2004 Problem Nocturnal hypoxia G47.34 Active 38 3913069 Problem Hyperlipidemia, unspecified hyperlipidemia E78.5 Active 03794796 Problem Gastroesophageal reflux disease without esophagitis K21.9 Active 505247261 Problem Anxiety F41.9 Active 75264955 Problem Other chronic gastritis without hemorrhage K29.50 Active 3824153 ALLERGIES No Information ENCOUNTERS Encounter Location Date Diagnosis [place] [id number] [facility] [id number] [address] [place] [address] Nov, [facility] [address] [facility] [id number] [address] [place] [address] Oct, [place] [address] [facility] [id number] [address] [place] [address] Oct, [place] [address] [place] [id number] [address] [place] [address] Oct, CN palsy, left eye H49.22 ; Primary insomnia F51.01 ; Pulsatile tinnitus of left ear H93.A2 and Seborrheic keratosis L82.1 [facility] [address] [place] [id number] [address] [place] [address] Aug, CN palsy, left eye H49.22 ; Essential hypertension I10 ; Arthralgia, unspecified joint M25.50 and Primary insomnia F51.01 [facility] [address] [place] [id number] [place] [address] Jul, Cranial nerve palsy G52.9 [facility] [address] [place] [id number] [place] [address] Jul, Cranial nerve palsy G52.9 ; Stage 3 chronic kidney disease N18.3 ; Family history of embolic stroke Z82.3 and Numbness of left hand R20.0 [place] [address] [place] [id number] [place] [address] Jun, Anxiety F41.9 and Essential hypertension I10 [place] [address] [address] Jun, [facility] [address] [place] [id number] [place] [address] Jun, Essential hypertension I10 [place] [address] [address] May, [facility] [address] [place] [id number] [place] [address] May, Herpes zoster without compli cation B02.9 and Stage 3 chronic kidney disease N18.3 [facility] [address] [place] [id number] [address] [place] [address] Mar, Essential hypertension I10 [facility] [address] [place] [id number] [place] [address] Feb, [facility] [address] [place] [id number] [address] [place] [address] Feb, [facility] [address] [address] Feb, Essential hypertension I10 a nd Acute midline low back pain without sciatica M54.5 [facility] [address] [address] December, Insect bite (nonvenomous) of lower back and pelvis, initial encounter S30.860A and Bitten or stung by nonvenomous insect and other nonvenomous arthropods, initial encounter W57.XXXA [facility] [address] [address] Nov, Pleurisy R09.1 [place] [address] [address] Nov, [facility] [address] [address] Oct, Hypoxemia R09.02 and Fatigue , unspecified type R53.83 [place] [address] [address] 12 Sep, 2017 Other chronic gastritis with out hemorrhage K29.50 ; Gastroesophageal reflux disease without esophagitis K21.9 ; Hyperlipidemia, unspecified hyperlipidemia E78.5 and Arthralgia, unspecified joint M25.50 [facility] [address] [address] Aug, Hypertriglyceridemia E78.1 [place] [address] [address] 02 May, 2017 Anxiety F41.9 [place] [address] [address] 21 Apr, 2017 Hyperlipidemia, unspecified hyperlipidemia E78.5 ; Gastroesophageal reflux disease without esophagitis K21.9 ; Forgetfulness R68.89 ; Essential hypertension I10 and Anxiety F41.9 [place] [address] [address] 14 Apr, 2017 Hypertriglyceridemia E78.1 [place] [address] [place] [address] Mar, Medicare annual wellness vis it, subsequent Z00.00 ; Hyperlipidemia, unspecified hyperlipidemia E78.5 and Essential hypertension I10 [place] [address] [address] Mar, Forgetfulness R68.89 ; Fatig ue, unspecified type R53.83 and Essential hypertension I10 [place] [address] [address] Mar, Primary osteoarthritis, 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 and Strain of left trapezius muscle, initial encounter S46.812A [place] 085102[address] Feb, Left wrist pain M25.532 [place] [address] [address] 07 Feb, 2017 Left wrist pain M25.532 [place] [address] [address] December, Hypertriglyceridemia E78.1 ; Encounter for immunization Z23 ; Forgetfulness R68.89 and Fatigue, unspecified type R53.83 [place] [address] [address] Jun, Forgetfulness R68.89 and Rhi nitis, unspecified type J31.0 [place] [address] [address] May, [address] [address] May, Hypoxemia R09.02 ; Memory lo ss R41.3 ; Arthralgia, unspecified joint M25.50 and Rhinitis, unspecified type J31.0 [place] [address] [place] [id number] [address] [place] [address] Mar, Vertigo R42 ; Orthostatic hy potension I95.1 and Chronic gastritis without bleeding, unspecified gastritis type K29.50 [place] [facility] [id number] [address] [place] [address] Feb, [place] [address] [address] Feb, Forgetfulness R68.89 [place] [address] [place] [id number] [place] [address] Jan, [place] [address] [address] Jan, Gastroesophageal reflux dise ase without esophagitis K21.9 ; Fatigue, unspecified type R53.83 ; Weakness R53.1 ; Forgetfulness R68.89 ; Hyperlipidemia, unspecified hyperlipidemia E78.5 and Hearing abnormally acute, unspecified laterality H93.239 [place] [address] [address] Oct, [place] [address] [address] Aug, Upper respiratory tract infe ction, unspecified type J06.9 [place] [address] [address] Aug, [place] [address] [place] [id number] [place] [address] Jun, Acute idiopathic gout, unspe cified site M10.00 ; Encounter for immunization Z23 ; Hyperlipidemia, unspecified hyperlipidemia E78.5 ; Gastroesophageal reflux disease without esophagitis K21.9 and Fatigue, unspecified type R53.83 [place] [address] [place] [id number] [address] [place] [address] 17 Jan, 2015 Esophageal reflux 530.81 and Irritable bowel syndrome 564.1 [place] [address] [place] [id number] [address] [place] [address] 15 Jan, 2015 [place] [address] [place] [id number] [place] [address] Jan, Gastritis 535.50 ; Hx of col onic polyp V12.72 and Positional vertigo 386.11 [facility] [address] [facility] [id number] [address] [place] [address] Jan, [facility] [address] [facility] [id number] [address] [place] [address] Jan, Dizziness 780.4 and Nausea & vomiting 787.01 [facility] [address] [facility] [id number] [address] [place] [address] Nov, [facility] [address] [id number] [address] [place] [address] Nov, [facility] [address] [facility] [id number] [address] [place] [address] Nov, [facility] [address] [facility] [id number] [address] [place] [address] Nov, [facility] [address] [facility] [id number] [address] [place] [address] Oct, [facility] [address] [facility] [id number] [address] [place] [address] Oct, [facility] [address] [facility] [id number] [address] [place] [address] Oct, [facility] [address] [facility] [id number] [address] [place] [address] Aug, [facility] [address] [facility] [id number] [address] [place] [address] Aug, [facility] [address] [facility] [id number] [address] [place] [address] Aug, [facility] [address] [facility] [id number] [address] [place] [address] Jul, [facility] [address] [facility] [id number] [address] [place] [address] Jul, [facility] [address] [facility] [id number] [address] [place] [address] Jul, [facility] [address] [id number] [address] [place] [address], [place] [address] Jul, [facility] [address] [id number] [address] [place] [address], [place] [address] Jul, [facility] [address] [id number] [address] [place] [address], [place] [address] Jul, [facility] [address] [id number] [address] [place] [address], [place] [address] Jul, [facility] [address] [id number] [address] [place] [address], [place] [address] Jul, [facility] [address] [id number] [address] [place] [address], [place] [address] Jul, [facility] [address] [id number] [address] [place] [address], [place] [address] Jul, [facility] [address] [id number] [address] [place] [address], [place] [address] Jul, [facility] [address] [id number] [address] [place] [address], [place] [address] Jun, [facility] [address] [id number] [address] [place] [address], [place] [address] 14 Jun, 2014 [facility] [address] [id number] [address] [place] [address], [place] [address] Jun, [facility] [address] [id number] [address] [place] [address], [place] [address] 10 Jun, 2014 [facility] [address] [id number] [address] [place] [address], [place] [address] 17 Apr, 2014 [facility] [address] [id number] [address] [place] [address], [place] [address] 17 Apr, 2014 [facility] [address] [id number] [address] [place] [address], [place] [address] 17 Apr, 2014 [facility] [address] [id number] [address] [place] [address], [place] [address] Apr, [facility] [address] [id number] [address] [place] [address], [place] [address] Feb, [facility] [address] [id number] [address] [place] [address], [place] [address] Feb, [facility] [address] [id number] [address] [place] [address], [place] [address] Feb, [facility] [address] [id number] [address] [place] [address], [place] [address] Feb, [facility] [address] [id number] [address] [place] [address], [place] [address] Jan, [facility] [address] [id number] [address] [place] [address], [place] [address] Jan, [facility] [address] [id number] [address] [place] [address], [place] [address] Jan, [facility] [address] [id number] [address] [place] [address], [place] [address] Jan, [facility] [address] [id number] [address] [place] [address], [place] [address] December, [facility] [address] [id number] [address] [place] [address], [place] [address] December, [facility] [address] [id number] [address] [place] [address], [place] [address] December, [facility] [address] [id number] [address] [place] [address], [place] [address] December, [facility] [address] [id number] [address] [place] [address], [place] [address] December, [facility] [address] [id number] [address] [place] [address], [place] [address] December, [facility] [address] [id number] [address] [place] [address], [place] [address] Oct, [facility] [address] [id number] [address] [place] [address], [place] [address] Oct, [facility] [address] [id number] [address] [place] [address], [place] [address] Sep, [facility] [address] [id number] [address] [place] [address], [place] [address] Sep, [facility] [address] [id number] [address] [place] [address], [place] [address] Aug, [facility] [address] [id number] [address] [place] [address], [place] [address] Aug, [facility] [address] [id number] [address] [place] [address], [place] [address] Jul, [facility] [address] [id number] [address] [place] [address], [place] [address] Jul, [facility] [address] [id number] [address] [place] [address], [place] [address] May, [facility] [address] [id number] [address] [place] [address], [place] [address] May, [facility] [address] [id number] [address] [place] [phone] May, [facility] [address] [id number] [address] [place] [address], [place] [address] Apr, [facility] [address] [id number] [address] [place] [address] Feb, [facility] [address] [id number] [address] [place] [address], [place] [address] Feb, [facility] [address] [id number] [address] [place] [address], [place] [address] Feb, [facility] [address] [id number] [address] [place] [address], [place] [address] Feb, [facility] [address] [id number] [address] [place] [address] Jan, [facility] [address] [id number] [address] [place] [address], [place] [address] Jan, [facility] [address] [id number] [address] [place] [address], [place] [address] December, [facility] [address] [id number] [address] [place] [address], [place] [address] Nov, [facility] [address] [id number] [address] [place] [address], [place] [address] Nov, [facility] [address] [id number] [address] [place] [address], [place] [address] Oct, [facility] [address] [id number] [address] [place] [address], [place] [address] Oct, [facility] [address] [id number] [address] [place] [address], [place] [address] Oct, [facility] [address] [id number] [address] [place] [address], [place] [address] Aug, [facility] [address] [id number] [address] [place] [address], [place] [address] Aug, [facility] [address] [id number] [address] [place] [address], [place] [address] Jul, [facility] [address] [id number] [address] [place] [address], [place] [address] Jul, [facility] [address] [id number] [address] [place] [address], [place] [address] Jul, [facility] [address] [id number] [address] [place] [address], [place] [address] Jul, [facility] [address] [id number] [address] [place] [address], [place] [address] Jun, [facility] [address] [id number] [address] [place] [address], [place] [address] Jun, [facility] [address] [id number] [address] [place] [address], [place] [address] May, [facility] [address] [id number] [address] [place] [address], [place] [address] Mar, [facility] [address] [id number] [address] [place] [address], [place] [address] Mar, [facility] [address] [id number] [address] [place] [address], [place] [address] Jan, [facility] [address] [id number] [address] [place] [address], [place] [address] Jan, [facility] [address] [id number] [address] [place] [address], [place] [address] December, [facility] [address] [id number] [address] [place] [address], [place] [address] December, [facility] [address] [id number] [address] [place] [address], [place] [address] December, [facility] [address] [id number] [address] [place] [address], [place] [address] December, [facility] [address] [id number] [address] [place] [address], [place] [address] Sep, [facility] [address] [id number] [address] [place] [address], [place] [address] Sep, [facility] [address] [id number] [address] [place] [address], [place] [address] Jun, [facility] [address] [id number] [address] [place] [address], [place] [address] 14 Jun, 2011 [facility] [address] [id number] [address] [place] [address], [place] [address] 18 May, 2011 [facility] [address] [id number] [address] [place] [address], [place] [address] Feb, [facility] [address] [id number] [address] [place] [address], [place] [address] Mar, [facility] [address] [facility] [id number] [address] [place] [address] Nov, [facility] [address] [facility] [id number] [address] [place] [address] Sep, [facility] [address] [facility] [id number] [address] [place] [address] Jun, [facility] [address] [facility] [id number] [address] [place] [address] Jun, [facility] [address] [facility] [id number] [address] [place] [phone] May, [facility] [address] [facility] [id number] [address] [place] [id number] Mar, [facility] [address] [facility] [id number] [address] [place] [id number] December, IMMUNIZATIONS No Known Immunizations SOCIAL HISTORY [...]
--- OUTSIDE RECORDS SUMMARY | 2020-02-28 02:36 | XMS REPORT ---
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 Active 274381933 Problem Essential hypertension I10 Active 10903404 Problem Stage 3 chronic kidney disease N18.3 Active 954615989 Problem Memory loss R41.3 Active 46869833 Problem Primary insomnia F51.01 Active 397 2004 Problem Nocturnal hypoxia G47.34 Active 38 7738782 Problem Hyperlipidemia, unspecified hyperlipidemia E78.5 Active 48234659 Problem Gastroesophageal reflux disease without esophagitis K21.9 Active 414881930 Problem Anxiety F41.9 Active 76753991 Problem Other chronic gastritis without hemorrhage K29.50 Active 1348939 ALLERGIES No Information ENCOUNTERS Encounter Location Date Diagnosis [place] [address] [facility] [id number] [address] [place] [address] Nov, [facility] [address] [facility] [id number] [address] [place] [address] Oct, [place] [address] [facility] [id number] [address] [place] [address] Oct, [place] [address] [place] [id number] [address] [place] [address] Oct, CN palsy, left eye H49.22 ; Primary insomnia F51.01 ; Pulsatile tinnitus of left ear H93.A2 and Seborrheic keratosis L82.1 [facility] [address] [place] [id number] [address] [place] [address] Aug, CN palsy, left eye H49.22 ; Essential hypertension I10 ; Arthralgia, unspecified joint M25.50 and Primary insomnia F51.01 [facility] [address] [place] [id number] [place] [address] Jul, Cranial nerve palsy G52.9 [facility] [address] [place] [id number] [place] [address] Jul, Cranial nerve palsy G52.9 ; Stage 3 chronic kidney disease N18.3 ; Family history of embolic stroke Z82.3 and Numbness of left hand R20.0 [place] [address] [place] [id number] [place] [address] Jun, Anxiety F41.9 and Essential hypertension I10 [place] [address] [address] Jun, [facility] [address] [place] [id number] [place] [address] Jun, Essential hypertension I10 [place] [address] [address] May, [facility] [address] [place] [id number] [place] [address] May, Herpes zoster without compli cation B02.9 and Stage 3 chronic kidney disease N18.3 [facility] [address] [place] [id number] [address] [place] [address] Mar, Essential hypertension I10 [facility] [address] [place] [id number] [place] [address] Feb, [facility] [address] [place] [id number] [address] [place] [address] Feb, [facility] [address] [address] Feb, Essential hypertension I10 a nd Acute midline low back pain without sciatica M54.5 [facility] [address] [address] December, Insect bite (nonvenomous) of lower back and pelvis, initial encounter S30.860A and Bitten or stung by nonvenomous insect and other nonvenomous arthropods, initial encounter W57.XXXA [facility] [address] [address] Nov, Pleurisy R09.1 [place] [address] [address] Nov, [facility] [address] [address] Oct, Hypoxemia R09.02 and Fatigue , unspecified type R53.83 [place] [address] [address] 12 Sep, 2017 Other chronic gastritis with out hemorrhage K29.50 ; Gastroesophageal reflux disease without esophagitis K21.9 ; Hyperlipidemia, unspecified hyperlipidemia E78.5 and Arthralgia, unspecified joint M25.50 [facility] [address] [address] Aug, Hypertriglyceridemia E78.1 [place] [address] [address] 02 May, 2017 Anxiety F41.9 [place] [address] [address] 21 Apr, 2017 Hyperlipidemia, unspecified hyperlipidemia E78.5 ; Gastroesophageal reflux disease without esophagitis K21.9 ; Forgetfulness R68.89 ; Essential hypertension I10 and Anxiety F41.9 [place] [address] [address] 14 Apr, 2017 Hypertriglyceridemia E78.1 [place] [address] [place] [address] Mar, Medicare annual wellness vis it, subsequent Z00.00 ; Hyperlipidemia, unspecified hyperlipidemia E78.5 and Essential hypertension I10 [place] [address] [address] Mar, Forgetfulness R68.89 ; Fatig ue, unspecified type R53.83 and Essential hypertension I10 [place] [address] [address] Mar, Primary osteoarthritis, 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 and Strain of left trapezius muscle, initial encounter S46.812A [place] [address] Feb, Left wrist pain M25.532 [place] [address] [address] 07 Feb, 2017 Left wrist pain M25.532 [place] [address] [address] December, Hypertriglyceridemia E78.1 ; Encounter for immunization Z23 ; Forgetfulness R68.89 and Fatigue, unspecified type R53.83 [place] [address] [address] Jun, Forgetfulness R68.89 and Rhi nitis, unspecified type J31.0 [place] [address] [address] May, [address] [address] May, Hypoxemia R09.02 ; Memory lo ss R41.3 ; Arthralgia, unspecified joint M25.50 and Rhinitis, unspecified type J31.0 [place] [address] [place] [id number] [address] [place] [address] Mar, Vertigo R42 ; Orthostatic hy potension I95.1 and Chronic gastritis without bleeding, unspecified gastritis type K29.50 [place] [address] [facility] [id number] [address] [place] [address] Feb, [place] [address] [address] Feb, Forgetfulness R68.89 [place] [address] [place] [id number] [place] [address] Jan, [place] [address] [address] Jan, Gastroesophageal reflux dise ase without esophagitis K21.9 ; Fatigue, unspecified type R53.83 ; Weakness R53.1 ; Forgetfulness R68.89 ; Hyperlipidemia, unspecified hyperlipidemia E78.5 and Hearing abnormally acute, unspecified laterality H93.239 [place] [address] [address] Oct, [place] [address] [address] Aug, Upper respiratory tract infe ction, unspecified type J06.9 [place] [address] [address] Aug, [place] [address] [place] [id number] [place] [address] Jun, Acute idiopathic gout, unspe cified site M10.00 ; Encounter for immunization Z23 ; Hyperlipidemia, unspecified hyperlipidemia E78.5 ; Gastroesophageal reflux disease without esophagitis K21.9 and Fatigue, unspecified type R53.83 [place] [address] [place] [id number] [address] [place] [address] 17 Jan, 2015 Esophageal reflux 530.81 and Irritable bowel syndrome 564.1 [place] [address] [place] [id number] [address] [place] [address] 15 Jan, 2015 [place] [address] [place] [id number] [place] [address] Jan, Gastritis 535.50 ; Hx of col onic polyp V12.72 and Positional vertigo 386.11 [facility] [address] [facility] [id number] [address] [place] [address] Jan, [facility] [address] [facility] [id number] [address] [place] [address] Jan, Dizziness 780.4 and Nausea & vomiting 787.01 [facility] [address] [facility] [id number] [address] [place] [address] Nov, [facility] [address] [id number] [address] [place] [address] Nov, [facility] [address] [facility] [id number] [address] [place] [address] Nov, [facility] [address] [facility] [id number] [address] [place] [address] Nov, [facility] [address] [facility] [id number] [address] [place] [address] Oct, [facility] [address] [facility] [id number] [address] [place] [address] Oct, [facility] [address] [facility] [id number] [address] [place] [address] Oct, [facility] [address] [facility] [id number] [address] [place] [address] Aug, [facility] [address] [facility] [id number] [address] [place] [address] Aug, [facility] [address] [facility] [id number] [address] [place] [address] Aug, [facility] [address] [facility] [id number] [address] [place] [address] Jul, [facility] [address] [facility] [id number] [address] [place] [address] Jul, [facility] [address] [facility] [id number] [address] [place] [address] Jul, [facility] [address] [id number] [address] [place] [address], [place] [address] Jul, [facility] [address] [id number] [address] [place] [address], [place] [address] Jul, [facility] [address] [id number] [address] [place] [address], [place] [address] Jul, [facility] [address] [id number] [address] [place] [address], [place] [address] Jul, [facility] [address] [id number] [address] [place] [address], [place] [address] Jul, [facility] [address] [id number] [address] [place] [address], [place] [address] Jul, [facility] [address] [id number] [address] [place] [address], [place] [address] Jul, [facility] [address] [id number] [address] [place] [address], [place] [address] Jul, [facility] [address] [id number] [address] [place] [address], [place] [address] Jun, [facility] [address] [id number] [address] [place] [address], [place] [address] 14 Jun, 2014 [facility] [address] [id number] [address] [place] [address], [place] [address] Jun, [facility] [address] [id number] [address] [place] [address], [place] [address] 10 Jun, 2014 [facility] [address] [id number] [address] [place] [address], [place] [address] 17 Apr, 2014 [facility] [address] [id number] [address] [place] [address], [place] [address] 17 Apr, 2014 [facility] [address] [id number] [address] [place] [address], [place] [address] 17 Apr, 2014 [facility] [address] [id number] [address] [place] [address], [place] [address] Apr, [facility] [address] [id number] [address] [place] [address], [place] [address] Feb, [facility] [address] [id number] [address] [place] [address], [place] [address] Feb, [facility] [address] [id number] [address] [place] [address], [place] [address] Feb, [facility] [address] [id number] [address] [place] [address], [place] [address] Feb, [facility] [address] [id number] [address] [place] [address], [place] [address] Jan, [facility] [address] [id number] [address] [place] [address], [place] [address] Jan, [facility] [address] [id number] [address] [place] [address], [place] [address] Jan, [facility] [address] [id number] [address] [place] [address], [place] [address] Jan, [facility] [address] [id number] [address] [place] [address], [place] [address] December, [facility] [address] [id number] [address] [place] [address], [place] [address] December, [facility] [address] [id number] [address] [place] [address], [place] [address] December, [facility] [address] [id number] [address] [place] [address], [place] [address] December, [facility] [address] [id number] [address] [place] [address], [place] [address] December, [facility] [address] [id number] [address] [place] [address], [place] [address] December, [facility] [address] [id number] [address] [place] [address], [place] [address] Oct, [facility] [address] [id number] [address] [place] [address], [place] [address] Oct, [facility] [address] [id number] [address] [place] [address], [place] [address] Sep, [facility] [address] [id number] [address] [place] [address], [place] [address] Sep, [facility] [address] [id number] [address] [place] [address], [place] [address] Aug, [facility] [address] [id number] [address] [place] [address], [place] [address] Aug, [facility] [address] [id number] [address] [place] [address], [place] [address] Jul, [facility] [address] [id number] [address] [place] [address], [place] [address] Jul, [facility] [address] [id number] [address] [place] [address], [place] [address] May, [facility] [address] [id number] [address] [place] [address], [place] [address] May, [facility] [address] [id number] [address] [place] [address] May, [facility] [address] [id number] [address] [place] [address], [place] [address] Apr, [facility] [address] [id number] [address] [place] [address] Feb, [facility] [address] [id number] [address] [place] [address], [place] [address] Feb, [facility] [address] [id number] [address] [place] [address], [place] [address] Feb, [facility] [address] [id number] [address] [place] [address], [place] [address] Feb, [facility] [address] [id number] [address] [place] [address] Jan, [facility] [address] [id number] [address] [place] [address], [place] [address] Jan, [facility] [address] [id number] [address] [place] [address], [place] [address] December, [facility] [address] [id number] [address] [place] [address], [place] [address] Nov, [facility] [address] [id number] [address] [place] [address], [place] [address] Nov, [facility] [address] [id number] [address] [place] [address], [place] [address] Oct, [facility] [address] [id number] [address] [place] [address], [place] [address] Oct, [facility] [address] [id number] [address] [place] [address], [place] [address] Oct, [facility] [address] [id number] [address] [place] [address], [place] [address] Aug, [facility] [address] [id number] [address] [place] [address], [place] [address] Aug, [facility] [address] [id number] [address] [place] [address], [place] [address] Jul, [facility] [address] [id number] [address] [place] [address], [place] [address] Jul, [facility] [address] [id number] [address] [place] [address], [place] [address] Jul, [facility] [address] [id number] [address] [place] [address], [place] [address] Jul, [facility] [address] [id number] [address] [place] [address], [place] [address] Jun, [facility] [address] [id number] [address] [place] [address], [place] [address] Jun, [facility] [address] [id number] [address] [place] [address], [place] [address] May, [facility] [address] [id number] [address] [place] [address], [place] [address] Mar, [facility] [address] [id number] [address] [place] [address], [place] [address] Mar, [facility] [address] [id number] [address] [place] [address], [place] [address] Jan, [facility] [address] [id number] [address] [place] [address], [place] [address] Jan, [facility] [address] [id number] [address] [place] [address], [place] [address] December, [facility] [address] [id number] [address] [place] [address], [place] [address] December, [facility] [address] [id number] [address] [place] [address], [place] [address] December, [facility] [address] [id number] [address] [place] [address], [place] [address] December, [facility] [address] [id number] [address] [place] [address], [place] [address] Sep, [facility] [address] [id number] [address] [place] [address], [place] [address] Sep, [facility] [address] [id number] [address] [place] [address], [place] [address] Jun, [facility] [address] [id number] [address] [place] [address], [place] [address] 14 Jun, 2011 [facility] [address] [id number] [address] [place] [address], [place] [address] 18 May, 2011 [facility] [address] [id number] [address] [place] [address], [place] [address] Feb, [facility] [address] [id number] [address] [place] [address], [place] [address] Mar, [facility] [address] [facility] [id number] [address] [place] [id number] Nov, [facility] [address] [facility] [id number] [address] [place] [address] Sep, [facility] [address] [facility] [id number] [address] [place] [address] Jun, [facility] [address] [facility] [id number] [address] [place] [id number] Jun, [facility] [address] [facility] [id number] [address] [place] [address] May, [facility] [address] [facility] [id number] [address] [place] [address] Mar, [facility] [address] [facility] [id number] [address] [place] [address] December, IMMUNIZATIONS No Known Immunizations SOCIAL HISTORY [...]
--- OUTSIDE RECORDS SUMMARY | 2020-02-28 02:36 | XMS REPORT ---
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 Active 994268169 Problem Essential hypertension I10 Active 37273747 Problem Stage 3 chronic kidney disease N18.3 Active 131347165 Problem Memory loss R41.3 Active 51667116 Problem Primary insomnia F51.01 Active 397 2004 Problem Nocturnal hypoxia G47.34 Active 38 3905847 Problem Hyperlipidemia, unspecified hyperlipidemia E78.5 Active 43112712 Problem Gastroesophageal reflux disease without esophagitis K21.9 Active 622023866 Problem Anxiety F41.9 Active 04917907 Problem Other chronic gastritis without hemorrhage K29.50 Active 3554295 ALLERGIES No Information ENCOUNTERS Encounter Location Date Diagnosis [place] [address] [facility] [id number] [address] [place] [address] Nov, [facility] [address] [facility] [id number] [address] [place] [address] Oct, [place] [address] [facility] [id number] [address] [place] [address] Oct, [place] [address] [place] [id number] [address] [place] [address] Oct, CN palsy, left eye H49.22 ; Primary insomnia F51.01 ; Pulsatile tinnitus of left ear H93.A2 and Seborrheic keratosis L82.1 [facility] [address] [place] [id number] [address] [place] [address] Aug, CN palsy, left eye H49.22 ; Essential hypertension I10 ; Arthralgia, unspecified joint M25.50 and Primary insomnia F51.01 [facility] [address] [place] [id number] [place] [address] Jul, Cranial nerve palsy G52.9 [facility] [address] [place] [id number] [place] [address] Jul, Cranial nerve palsy G52.9 ; Stage 3 chronic kidney disease N18.3 ; Family history of embolic stroke Z82.3 and Numbness of left hand R20.0 [place] [address] [place] [id number] [place] [address] Jun, Anxiety F41.9 and Essential hypertension I10 [place] [address] [address] Jun, [facility] [address] [place] [id number] [place] [address] Jun, Essential hypertension I10 [place] [address] [address] May, [facility] [address] [place] [id number] [place] [address] May, Herpes zoster without compli cation B02.9 and Stage 3 chronic kidney disease N18.3 [facility] [address] [place] [id number] [address] [place] [address] Mar, Essential hypertension I10 [facility] [address] [place] [id number] [place] [address] Feb, [facility] [address] [place] [id number] [address] [place] [address] Feb, [facility] [address] [address] Feb, Essential hypertension I10 a nd Acute midline low back pain without sciatica M54.5 [facility] [address] [address] December, Insect bite (nonvenomous) of lower back and pelvis, initial encounter S30.860A and Bitten or stung by nonvenomous insect and other nonvenomous arthropods, initial encounter W57.XXXA [facility] [address] [address] Nov, Pleurisy R09.1 [place] [address] [address] Nov, [facility] [address] [address] Oct, Hypoxemia R09.02 and Fatigue , unspecified type R53.83 [place] [address] [address] 12 Sep, 2017 Other chronic gastritis with out hemorrhage K29.50 ; Gastroesophageal reflux disease without esophagitis K21.9 ; Hyperlipidemia, unspecified hyperlipidemia E78.5 and Arthralgia, unspecified joint M25.50 [facility] [address] [address] Aug, Hypertriglyceridemia E78.1 [place] [address] [address] 02 May, 2017 Anxiety F41.9 [place] [address] [address] 21 Apr, 2017 Hyperlipidemia, unspecified hyperlipidemia E78.5 ; Gastroesophageal reflux disease without esophagitis K21.9 ; Forgetfulness R68.89 ; Essential hypertension I10 and Anxiety F41.9 [place] [address] [address] 14 Apr, 2017 Hypertriglyceridemia E78.1 [place] [address] [place] [address] Mar, Medicare annual wellness vis it, subsequent Z00.00 ; Hyperlipidemia, unspecified hyperlipidemia E78.5 and Essential hypertension I10 [place] [address] [address] Mar, Forgetfulness R68.89 ; Fatig ue, unspecified type R53.83 and Essential hypertension I10 [place] [address] [address] Mar, Primary osteoarthritis, 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 and Strain of left trapezius muscle, initial encounter S46.812A [place] [address]34[address] Feb, Left wrist pain M25.532 [place] [address] [address] 07 Feb, 2017 Left wrist pain M25.532 [place] [address] [address] December, Hypertriglyceridemia E78.1 ; Encounter for immunization Z23 ; Forgetfulness R68.89 and Fatigue, unspecified type R53.83 [place] [address] [address] Jun, Forgetfulness R68.89 and Rhi nitis, unspecified type J31.0 [place] [address] [address] May, [address] [address] May, Hypoxemia R09.02 ; Memory lo ss R41.3 ; Arthralgia, unspecified joint M25.50 and Rhinitis, unspecified type J31.0 [place] [address] [place] [id number] [address] [place] [address] Mar, Vertigo R42 ; Orthostatic hy potension I95.1 and Chronic gastritis without bleeding, unspecified gastritis type K29.50 [place] [address] [facility] [id number] [address] [place] [address] Feb, [place] [address] [address] Feb, Forgetfulness R68.89 [place] [address] [place] [id number] [place] [address] Jan, [place] [address] [address] Jan, Gastroesophageal reflux dise ase without esophagitis K21.9 ; Fatigue, unspecified type R53.83 ; Weakness R53.1 ; Forgetfulness R68.89 ; Hyperlipidemia, unspecified hyperlipidemia E78.5 and Hearing abnormally acute, unspecified laterality H93.239 [place] [address] [address] Oct, [place] [address] [address] Aug, Upper respiratory tract infe ction, unspecified type J06.9 [place] [address] [address] Aug, [place] [address] [place] [id number] [place] [address] Jun, Acute idiopathic gout, unspe cified site M10.00 ; Encounter for immunization Z23 ; Hyperlipidemia, unspecified hyperlipidemia E78.5 ; Gastroesophageal reflux disease without esophagitis K21.9 and Fatigue, unspecified type R53.83 [place] [address] [place] [id number] [address] [place] [address] 17 Jan, 2015 Esophageal reflux 530.81 and Irritable bowel syndrome 564.1 [place] [address] [place] [id number] [address] [place] [address] 15 Jan, 2015 [place] [address] [place] [id number] [place] [address] Jan, Gastritis 535.50 ; Hx of col onic polyp V12.72 and Positional vertigo 386.11 [facility] [address] [facility] [id number] [address] [place] [address] Jan, [facility] [address] [facility] [id number] [address] [place] [address] Jan, Dizziness 780.4 and Nausea & vomiting 787.01 [facility] [address] [facility] [id number] [address] [place] [address] Nov, [facility] [address] [id number] [address] [place] [address] Nov, [facility] [address] [facility] [id number] [address] [place] [address] Nov, [facility] [address] [facility] [id number] [address] [place] [address] Nov, [facility] [address] [facility] [id number] [address] [place] [address] Oct, [facility] [address] [facility] [id number] [address] [place] [address] Oct, [facility] [address] [facility] [id number] [address] [place] [address] Oct, [facility] [address] [facility] [id number] [address] [place] [address] Aug, [facility] [address] [facility] [id number] [address] [place] [address] Aug, [facility] [address] [facility] [id number] [address] [place] [address] Aug, [facility] [address] [facility] [id number] [address] [place] [address] Jul, [facility] [address] [facility] [id number] [address] [place] [address] Jul, [facility] [address] [facility] [id number] [address] [place] [address] Jul, [facility] [address] [id number] [address] [place] [address], [place] [address] Jul, [facility] [address] [id number] [address] [place] [address], [place] [address] Jul, [facility] [address] [id number] [address] [place] [address], [place] [address] Jul, [facility] [address] [id number] [address] [place] [address], [place] [address] Jul, [facility] [address] [id number] [address] [place] [address], [place] [address] Jul, [facility] [address] [id number] [address] [place] [address], [place] [address] Jul, [facility] [address] [id number] [address] [place] [address], [place] [address] Jul, [facility] [address] [id number] [address] [place] [address], [place] [address] Jul, [facility] [address] [id number] [address] [place] [address], [place] [address] Jun, [facility] [address] [id number] [address] [place] [address], [place] [address] 14 Jun, 2014 [facility] [address] [id number] [address] [place] [address], [place] [address] Jun, [facility] [address] [id number] [address] [place] [address], [place] [address] 10 Jun, 2014 [facility] [address] [id number] [address] [place] [address], [place] [address] 17 Apr, 2014 [facility] [address] [id number] [address] [place] [address], [place] [address] 17 Apr, 2014 [facility] [address] [id number] [address] [place] [address], [place] [address] 17 Apr, 2014 [facility] [address] [id number] [address] [place] [address], [place] [address] Apr, [facility] [address] [id number] [address] [place] [address], [place] [address] Feb, [facility] [address] [id number] [address] [place] [address], [place] [address] Feb, [facility] [address] [id number] [address] [place] [address], [place] [address] Feb, [facility] [address] [id number] [address] [place] [address], [place] [address] Feb, [facility] [address] [id number] [address] [place] [address], [place] [address] Jan, [facility] [address] [id number] [address] [place] [address], [place] [address] Jan, [facility] [address] [id number] [address] [place] [address], [place] [address] Jan, [facility] [address] [id number] [address] [place] [address], [place] [address] Jan, [facility] [address] [id number] [address] [place] [address], [place] [address] December, [facility] [address] [id number] [address] [place] [address], [place] [address] December, [facility] [address] [id number] [address] [place] [address], [place] [address] December, [facility] [address] [id number] [address] [place] [address], [place] [address] December, [facility] [address] [id number] [address] [place] [address], [place] [address] December, [facility] [address] [id number] [address] [place] [address], [place] [address] December, [facility] [address] [id number] [address] [place] [address], [place] [address] Oct, [facility] [address] [id number] [address] [place] [address], [place] [address] Oct, [facility] [address] [id number] [address] [place] [address], [place] [address] Sep, [facility] [address] [id number] [address] [place] [address], [place] [address] Sep, [facility] [address] [id number] [address] [place] [address], [place] [address] Aug, [facility] [address] [id number] [address] [place] [address], [place] [address] Aug, [facility] [address] [id number] [address] [place] [address], [place] [address] Jul, [facility] [address] [id number] [address] [place] [address], [place] [address] Jul, [facility] [address] [id number] [address] [place] [address], [place] [address] May, [facility] [address] [id number] [address] [place] [address], [place] [address] May, [facility] [address] [id number] [address] [place] [address] May, [facility] [address] [id number] [address] [place] [address], [place] [address] Apr, [facility] [address] [id number] [address] [place] [address] Feb, [facility] [address] [id number] [address] [place] [address], [place] [address] Feb, [facility] [address] [id number] [address] [place] [address], [place] [address] Feb, [facility] [address] [id number] [address] [place] [address], [place] [address] Feb, [facility] [address] [id number] [address] [place] [address] Jan, [facility] [address] [id number] [address] [place] [address], [place] [address] Jan, [facility] [address] [id number] [address] [place] [address], [place] [address] December, [facility] [address] [id number] [address] [place] [address], [place] [address] Nov, [facility] [address] [id number] [address] [place] [address], [place] [address] Nov, [facility] [address] [id number] [address] [place] [address], [place] [address] Oct, [facility] [address] [id number] [address] [place] [address], [place] [address] Oct, [facility] [address] [id number] [address] [place] [address], [place] [address] Oct, [facility] [address] [id number] [address] [place] [address], [place] [address] Aug, [facility] [address] [id number] [address] [place] [address], [place] [address] Aug, [facility] [address] [id number] [address] [place] [address], [place] [address] Jul, [facility] [address] [id number] [address] [place] [address], [place] [address] Jul, [facility] [address] [id number] [address] [place] [address], [place] [address] Jul, [facility] [address] [id number] [address] [place] [address], [place] [address] Jul, [facility] [address] [id number] [address] [place] [address], [place] [address] Jun, [facility] [address] [id number] [address] [place] [address], [place] [address] Jun, [facility] [address] [id number] [address] [place] [address], [place] [address] May, [facility] [address] [id number] [address] [place] [address], [place] [address] Mar, [facility] [address] [id number] [address] [place] [address], [place] [address] Mar, [facility] [address] [id number] [address] [place] [address], [place] [address] Jan, [facility] [address] [id number] [address] [place] [address], [place] [address] Jan, [facility] [address] [id number] [address] [place] [address], [place] [address] December, [facility] [address] [id number] [address] [place] [address], [place] [address] December, [facility] [address] [id number] [address] [place] [address], [place] [address] December, [facility] [address] [id number] [address] [place] [address], [place] [address] December, [facility] [address] [id number] [address] [place] [address], [place] [address] Sep, [facility] [address] [id number] [address] [place] [address], [place] [address] Sep, [facility] [address] [id number] [address] [place] [address], [place] [address] Jun, [facility] [address] [id number] [address] [place] [address], [place] [address] 14 Jun, 2011 [facility] [address] [id number] [address] [place] [address], [place] [address] 18 May, 2011 [facility] [address] [id number] [address] [place] [address], [place] [address] Feb, [facility] [address] [id number] [address] [place] [address], [place] [address] Mar, [facility] [address] [facility] [id number] [address] [place] [address] Nov, [facility] [address] [facility] [id number] [address] [place] [address] Sep, [facility] [address] [facility] [id number] [address] [place] [address] Jun, [facility] [address] [facility] [id number] [address] [place] [address] Jun, [facility] [address] [facility] [id number] [address] [place] [address] May, [facility] [address] [facility] [id number] [address] [place] [address] Mar, [facility] [address] [facility] [id number] [address] [place] [address] December, IMMUNIZATIONS No Known Immunizations SOCIAL HISTORY [...]
--- OUTSIDE RECORDS SUMMARY | 2020-02-28 02:36 | XMS REPORT ---
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 Active 116005323 Problem Essential hypertension I10 Active 26376267 Problem Stage 3 chronic kidney disease N18.3 Active 603482316 Problem Memory loss R41.3 Active 29329404 Problem Primary insomnia F51.01 Active 397 2004 Problem Nocturnal hypoxia G47.34 Active 38 2681206 Problem Hyperlipidemia, unspecified hyperlipidemia E78.5 Active 99886779 Problem Gastroesophageal reflux disease without esophagitis K21.9 Active 869506031 Problem Anxiety F41.9 Active 90789895 Problem Other chronic gastritis without hemorrhage K29.50 Active 8250230 ALLERGIES No Information ENCOUNTERS Encounter Location Date Diagnosis [place] [id number] [facility] [id number] [address] [place] [address] Nov, [facility] [address] [facility] [id number] [address] [place] [address] Oct, [place] [address] [address] [facility] [id number] [address] [place] [address] Oct, [place] [address] [address] [place] [id number] [address] [place] [address] Oct, CN palsy, left eye H49.22 ; Primary insomnia F51.01 ; Pulsatile tinnitus of left ear H93.A2 and Seborrheic keratosis L82.1 [facility] [address] [place] [id number] [address] [place] [address] Aug, CN palsy, left eye H49.22 ; Essential hypertension I10 ; Arthralgia, unspecified joint M25.50 and Primary insomnia F51.01 [facility] [address] [place] [id number] [place] [address] Jul, Cranial nerve palsy G52.9 [facility] [address] [place] [id number] [place] [address] Jul, Cranial nerve palsy G52.9 ; Stage 3 chronic kidney disease N18.3 ; Family history of embolic stroke Z82.3 and Numbness of left hand R20.0 [place] [address] [place] [id number] [place] [address] Jun, Anxiety F41.9 and Essential hypertension I10 [place] [address] [address] Jun, [facility] [address] [place] [id number] [place] [address] Jun, Essential hypertension I10 [place] [address] [address] May, [facility] [address] [place] [id number] [place] [address] May, Herpes zoster without compli cation B02.9 and Stage 3 chronic kidney disease N18.3 [facility] [address] [place] [id number] [address] [place] [address] Mar, Essential hypertension I10 [facility] [address] [place] [id number] [place] [address] Feb, [facility] [address] [place] [id number] [address] [place] [address] Feb, [facility] [address] [address] Feb, Essential hypertension I10 a nd Acute midline low back pain without sciatica M54.5 [facility] [address] [address] December, Insect bite (nonvenomous) of lower back and pelvis, initial encounter S30.860A and Bitten or stung by nonvenomous insect and other nonvenomous arthropods, initial encounter W57.XXXA [facility] [address] [address] Nov, Pleurisy R09.1 [place] [address] [address] Nov, [facility] [address] [address] Oct, Hypoxemia R09.02 and Fatigue , unspecified type R53.83 [place] [address] [address] 12 Sep, 2017 Other chronic gastritis with out hemorrhage K29.50 ; Gastroesophageal reflux disease without esophagitis K21.9 ; Hyperlipidemia, unspecified hyperlipidemia E78.5 and Arthralgia, unspecified joint M25.50 [facility] [address] [address] Aug, Hypertriglyceridemia E78.1 [place] [address] [address] 02 May, 2017 Anxiety F41.9 [place] [address] [address] 21 Apr, 2017 Hyperlipidemia, unspecified hyperlipidemia E78.5 ; Gastroesophageal reflux disease without esophagitis K21.9 ; Forgetfulness R68.89 ; Essential hypertension I10 and Anxiety F41.9 [place] [address] [address] 14 Apr, 2017 Hypertriglyceridemia E78.1 [place] [address] [place] [address] Mar, Medicare annual wellness vis it, subsequent Z00.00 ; Hyperlipidemia, unspecified hyperlipidemia E78.5 and Essential hypertension I10 [place] [address] [address] Mar, Forgetfulness R68.89 ; Fatig ue, unspecified type R53.83 and Essential hypertension I10 [place] [address] [address] Mar, Primary osteoarthritis, 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 and Strain of left trapezius muscle, initial encounter S46.812A [place] [address] Feb, Left wrist pain M25.532 [place] [address] [address] 07 Feb, 2017 Left wrist pain M25.532 [place] [address] [address] December, Hypertriglyceridemia E78.1 ; Encounter for immunization Z23 ; Forgetfulness R68.89 and Fatigue, unspecified type R53.83 [place] [address] [address] Jun, Forgetfulness R68.89 and Rhi nitis, unspecified type J31.0 [place] [address] [address] May, [address] [address] May, Hypoxemia R09.02 ; Memory lo ss R41.3 ; Arthralgia, unspecified joint M25.50 and Rhinitis, unspecified type J31.0 [place] [address] [address] [place] [id number] [address] [place] [address] Mar, Vertigo R42 ; Orthostatic hy potension I95.1 and Chronic gastritis without bleeding, unspecified gastritis type K29.50 [place] [address] [facility] [id number] [address] [place] [address] Feb, [place] [address] [address] Feb, Forgetfulness R68.89 [place] [address] [place] [id number] [place] [address] Jan, [place] [address] [address] Jan, Gastroesophageal reflux dise ase without esophagitis K21.9 ; Fatigue, unspecified type R53.83 ; Weakness R53.1 ; Forgetfulness R68.89 ; Hyperlipidemia, unspecified hyperlipidemia E78.5 and Hearing abnormally acute, unspecified laterality H93.239 [place] [address] [address] Oct, [place] [address] [address] Aug, Upper respiratory tract infe ction, unspecified type J06.9 [place] [address] [address] Aug, [place] [address] [place] [id number] [place] [address] Jun, Acute idiopathic gout, unspe cified site M10.00 ; Encounter for immunization Z23 ; Hyperlipidemia, unspecified hyperlipidemia E78.5 ; Gastroesophageal reflux disease without esophagitis K21.9 and Fatigue, unspecified type R53.83 [place] [address] [place] [id number] [address] [place] [address] 17 Jan, 2015 Esophageal reflux 530.81 and Irritable bowel syndrome 564.1 [place] [address] [place] [id number] [address] [place] [address] 15 Jan, 2015 [place] [address] [place] [id number] [place] [address] Jan, Gastritis 535.50 ; Hx of col onic polyp V12.72 and Positional vertigo 386.11 [facility] [address] [facility] [id number] [address] [place] [address] Jan, [facility] [address] [facility] [id number] [address] [place] [address] Jan, Dizziness 780.4 and Nausea & vomiting 787.01 [facility] [address] [facility] [id number] [address] [place] [address] Nov, [facility] [address] [id number] [address] [place] [address] Nov, [facility] [address] [facility] [id number] [address] [place] [address] Nov, [facility] [address] [facility] [id number] [address] [place] [address] Nov, [facility] [address] [facility] [id number] [address] [place] [address] Oct, [facility] [address] [facility] [id number] [address] [place] [address] Oct, [facility] [address] [facility] [id number] [address] [place] [address] Oct, [facility] [address] [facility] [id number] [address] [place] [address] Aug, [facility] [address] [facility] [id number] [address] [place] [address] Aug, [facility] [address] [facility] [id number] [address] [place] [address] Aug, [facility] [address] [facility] [id number] [address] [place] [address] Jul, [facility] [address] [facility] [id number] [address] [place] [address] Jul, [facility] [address] [facility] [id number] [address] [place] [address] Jul, [facility] [address] [id number] [address] [place] [address], [place] [address] Jul, [facility] [address] [id number] [address] [place] [address], [place] [address] Jul, [facility] [address] [id number] [address] [place] [address], [place] [address] Jul, [facility] [address] [id number] [address] [place] [address], [place] [address] Jul, [facility] [address] [id number] [address] [place] [address], [place] [address] Jul, [facility] [address] [id number] [address] [place] [address], [place] [address] Jul, [facility] [address] [id number] [address] [place] [address], [place] [address] Jul, [facility] [address] [id number] [address] [place] [address], [place] [address] Jul, [facility] [address] [id number] [address] [place] [address], [place] [address] Jun, [facility] [address] [id number] [address] [place] [address], [place] [address] 14 Jun, 2014 [facility] [address] [id number] [address] [place] [address], [place] [address] Jun, [facility] [address] [id number] [address] [place] [address], [place] [address] 10 Jun, 2014 [facility] [address] [id number] [address] [place] [address], [place] [address] 17 Apr, 2014 [facility] [address] [id number] [address] [place] [address], [place] [address] 17 Apr, 2014 [facility] [address] [id number] [address] [place] [address], [place] [address] 17 Apr, 2014 [facility] [address] [id number] [address] [place] [address], [place] [address] Apr, [facility] [address] [id number] [address] [place] [address], [place] [address] Feb, [facility] [address] [id number] [address] [place] [address], [place] [address] Feb, [facility] [address] [id number] [address] [place] [address], [place] [address] Feb, [facility] [address] [id number] [address] [place] [address], [place] [address] Feb, [facility] [address] [id number] [address] [place] [address], [place] [address] Jan, [facility] [address] [id number] [address] [place] [address], [place] [address] Jan, [facility] [address] [id number] [address] [place] [address], [place] [address] Jan, [facility] [address] [id number] [address] [place] [address], [place] [address] Jan, [facility] [address] [id number] [address] [place] [address], [place] [address] December, [facility] [address] [id number] [address] [place] [address], [place] [address] December, [facility] [address] [id number] [address] [place] [address], [place] [address] December, [facility] [address] [id number] [address] [place] [address], [place] [address] December, [facility] [address] [id number] [address] [place] [address], [place] [address] December, [facility] [address] [id number] [address] [place] [address], [place] [address] December, [facility] [address] [id number] [address] [place] [address], [place] [address] Oct, [facility] [address] [id number] [address] [place] [address], [place] [address] Oct, [facility] [address] [id number] [address] [place] [address], [place] [address] Sep, [facility] [address] [id number] [address] [place] [address], [place] [address] Sep, [facility] [address] [id number] [address] [place] [address], [place] [address] Aug, [facility] [address] [id number] [address] [place] [address], [place] [address] Aug, [facility] [address] [id number] [address] [place] [address], [place] [address] Jul, [facility] [address] [id number] [address] [place] [address], [place] [address] Jul, [facility] [address] [id number] [address] [place] [address], [place] [address] May, [facility] [address] [id number] [address] [place] [address], [place] [address] May, [facility] [address] [id number] [address] [place] [address] May, [facility] [address] [id number] [address] [place] [address], [place] [address] Apr, [facility] [address] [id number] [address] [place] [address] Feb, [facility] [address] [id number] [address] [place] [address], [place] [address] Feb, [facility] [address] [id number] [address] [place] [address], [place] [address] Feb, [facility] [address] [id number] [address] [place] [address], [place] [address] Feb, [facility] [address] [id number] [address] [place] [address] Jan, [facility] [address] [id number] [address] [place] [address], [place] [address] Jan, [facility] [address] [id number] [address] [place] [address], [place] [address] December, [facility] [address] [id number] [address] [place] [address], [place] [address] Nov, [facility] [address] [id number] [address] [place] [address], [place] [address] Nov, [facility] [address] [id number] [address] [place] [address], [place] [address] Oct, [facility] [address] [id number] [address] [place] [address], [place] [address] Oct, [facility] [address] [id number] [address] [place] [address], [place] [address] Oct, [facility] [address] [id number] [address] [place] [address], [place] [address] Aug, [facility] [address] [id number] [address] [place] [address], [place] [address] Aug, [facility] [address] [id number] [address] [place] [address], [place] [address] Jul, [facility] [address] [id number] [address] [place] [address], [place] [address] Jul, [facility] [address] [id number] [address] [place] [address], [place] [address] Jul, [facility] [address] [id number] [address] [place] [address], [place] [address] Jul, [facility] [address] [id number] [address] [place] [address], [place] [address] Jun, [facility] [address] [id number] [address] [place] [address], [place] [address] Jun, [facility] [address] [id number] [address] [place] [address], [place] [address] May, [facility] [address] [id number] [address] [place] [address], [place] [address] Mar, [facility] [address] [id number] [address] [place] [address], [place] [address] Mar, [facility] [address] [id number] [address] [place] [address], [place] [address] Jan, [facility] [address] [id number] [address] [place] [address], [place] [address] Jan, [facility] [address] [id number] [address] [place] [address], [place] [address] December, [facility] [address] [id number] [address] [place] [address], [place] [address] December, [facility] [address] [id number] [address] [place] [address], [place] [address] December, [facility] [address] [id number] [address] [place] [address], [place] [address] December, [facility] [address] [id number] [address] [place] [address], [place] [address] Sep, [facility] [address] [id number] [address] [place] [address], [place] [address] Sep, [facility] [address] [id number] [address] [place] [address], [place] [address] Jun, [facility] [address] [id number] [address] [place] [address], [place] [address] 14 Jun, 2011 [facility] [address] [id number] [address] [place] [address], [place] [address] 18 May, 2011 [facility] [address] [id number] [address] [place] [address], [place] [address] Feb, [facility] [address] [id number] [address] [place] [address], [place] [address] 10 Mar, 2010 [facility] [address] [facility] [id number] [address] [place] [address] Nov, [facility] [address] [id number] [address] [place] [address] Sep, [facility] [address] [facility] [id number] [address] [place] [address] Jun, [facility] [address] [facility] [id number] [address] [place] [address] Jun, [facility] [address] [facility] [id number] [address] [place] [address] May, [facility] [address] [facility] [id number] [address] [place] [address] Mar, [facility] [address] [facility] [id number] [address] [place] [address] December, IMMUNIZATIONS No Known Immunizations SOCIAL HISTORY Never Assessed REASON FOR VISIT PLAN OF CARE VITAL SIGNS Height 64 in 2012-07-16 Weight 156.6 lbs 2012-07-16 Heart Rate 76 bpm 2012-07-16 Respiratory Rate 20 2012-07-16 Blood pressure systolic 130 mmHg 2012-07-16 Blood pressure diastolic 70 mmHg 2012-07-16 MEDICATIONS Unknown Medications RESULTS No Results PROCEDURES Procedure Date Ordered Result Body Site MICROALBUMIN, SEMIQUANT Jul 16, 2012 INSTRUCTIONS MEDICATIONS ADMINISTERED No Known Medications MEDICAL [...]
--- OUTSIDE RECORDS SUMMARY | 2020-02-28 02:37 | XMS REPORT ---
Author Author Lisy PIERRE Organization 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 Active 146027266 Problem Essential hypertension I10 Active 58277259 Problem Stage 3 chronic kidney disease N18.3 Active 102802180 Problem Memory loss R41.3 Active 18295569 Problem Primary insomnia F51.01 Active 397 2004 Problem Nocturnal hypoxia G47.34 Active 38 9516462 Problem Hyperlipidemia, unspecified hyperlipidemia E78.5 Active 00451787 Problem Gastroesophageal reflux disease without esophagitis K21.9 Active 280427263 Problem Anxiety F41.9 Active 01799671 Problem Other chronic gastritis without hemorrhage K29.50 Active 0599463 ALLERGIES Substance Reaction Event Type Date Status Sulfamethoxazole-Trimethoprim Unknown Drug Allergy Oct, 201 9 Active Penicillin V Potassium Unknown Drug Allergy Oct, Activ e Lisinopril chronic dry cough Drug Allergy Oct, Active ENCOUNTERS Encounter Location Date Diagnosis [facility] [address] [facility] [id number] [address] [place] [address] Nov, [facility] [address] [facility] [id number] [address] [place] [address] Oct, [facility] [address] [facility] [id number] [address] [place] [address] Oct, [facility] [address] [facility] [id number] [address] [place] [address] Oct, CN palsy, left eye H49.22 ; Primary insomnia F51.01 ; Pulsatile tinnitus of left ear H93.A2 and Seborrheic keratosis L82.1 [facility] [address] [place] [id number] [place] [address] Aug, CN palsy, left eye H49.22 ; Essential hypertension I10 ; Arthralgia, unspecified joint M25.50 and Primary insomnia F51.01 [place] [address] [address] Jul, Cranial nerve palsy G52.9 [place] [address] [address] Jul, Cranial nerve palsy G52.9 ; Stage 3 chronic kidney disease N18.3 ; Family history of embolic stroke Z82.3 and Numbness of left hand R20.0 [place] [address] [address] Jun, Anxiety F41.9 and Essential hypertension I10 [place] [address] [address] Jun, [place] [address] [address] Jun, Essential hypertension I10 [place] [address] [address] May, [place] [address] [address] May, Herpes zoster without compli cation B02.9 and Stage 3 chronic kidney disease N18.3 [place] [address] [place] [id number] [place] [address] Mar, Essential hypertension I10 [place] [address] [place] [id number] [place] [address] Feb, [place] [address] [address] Feb, [facility] [address] [address] Feb, Essential hypertension I10 a nd Acute midline low back pain without sciatica M54.5 [facility] [address] [place] [id number] [address] [place] [address] December, Insect bite (nonvenomous) of lower back and pelvis, initial encounter S30.860A and Bitten or stung by nonvenomous insect and other nonvenomous arthropods, initial encounter W57.XXXA [place] [address] [address] Nov, Pleurisy R09.1 [place] [address] [address] Nov, [facility] [address] [address] Oct, Hypoxemia R09.02 and Fatigue , unspecified type R53.83 [place] [address] [address] Sep, Other chronic gastritis with out hemorrhage K29.50 ; Gastroesophageal reflux disease without esophagitis K21.9 ; Hyperlipidemia, unspecified hyperlipidemia E78.5 and Arthralgia, unspecified joint M25.50 [place] [address] [address] Aug, Hypertriglyceridemia E78.1 [place] [address] [address] May, Anxiety F41.9 [place] [address] [address] Apr, Hyperlipidemia, unspecified hyperlipidemia E78.5 ; Gastroesophageal reflux disease without esophagitis K21.9 ; Forgetfulness R68.89 ; Essential hypertension I10 and Anxiety F41.9 [place] [address] [address] 14 Apr, 2017 Hypertriglyceridemia E78.1 [place] [address] [address] Mar, Medicare annual wellness vis it, subsequent Z00.00 ; Hyperlipidemia, unspecified hyperlipidemia E78.5 and Essential hypertension I10 [place] [address] [address] Mar, Forgetfulness R68.89 ; Fatig ue, unspecified type R53.83 and Essential hypertension I10 [place] [address] [address] Mar, Primary osteoarthritis, 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 and Strain of left trapezius muscle, initial encounter S46.812A [address] [address] Feb, Left wrist pain M25.532 [place] [address] [address] 07 Feb, 2017 Left wrist pain M25.[address] [address] December, Hypertriglyceridemia E78.1 ; Encounter for immunization Z23 ; Forgetfulness R68.89 and Fatigue, unspecified type R53.[address] [address] Jun, Forgetfulness R68.89 and Rhi nitis, unspecified type J31.0 [place] [address] [address] May, [address] [address] May, Hypoxemia R09.02 ; Memory lo ss R41.3 ; Arthralgia, unspecified joint M25.50 and Rhinitis, unspecified type J31.[address] [place] [address] Mar, Vertigo R42 ; Orthostatic hy potension I95.1 and Chronic gastritis without bleeding, unspecified gastritis type K29.50 [place] [address] [address] Feb, [place] [address] [address] Feb, Forgetfulness R68.89 [place] [address] [address] Jan, [place] [address] [address] Jan, Gastroesophageal reflux dise ase without esophagitis K21.9 ; Fatigue, unspecified type R53.83 ; Weakness R53.1 ; Forgetfulness R68.89 ; Hyperlipidemia, unspecified hyperlipidemia E78.5 and Hearing abnormally acute, unspecified laterality H93.239 [place] [address] [address] Oct, [place] [address] [address] Aug, Upper respiratory tract infe ction, unspecified type J06.9 [place] [address] [address] Aug, [place] [address] [address] Jun, Acute idiopathic gout, unspe cified site M10.00 ; Encounter for immunization Z23 ; Hyperlipidemia, unspecified hyperlipidemia E78.5 ; Gastroesophageal reflux disease without esophagitis K21.9 and Fatigue, unspecified type R53.83 [place] [address] [address] 17 Jan, 2015 Esophageal reflux 530.81 and Irritable bowel syndrome 564.1 [place] [address] [address] 15 Jan, 2015 [facility] [address] [facility] [id number] [address] [place] [address] 10 Jan, 2015 Gastritis 535.50 ; Hx of col onic polyp V12.72 and Positional vertigo 386.11 [facility] [address] [facility] [id number] [address] [place] [address] 09 Jan, 2015 [facility] [address] [facility] [id number] [address] [place] [address] Jan, Dizziness 780.4 and Nausea & vomiting 787.01 [facility] [address] [facility] [id number] [address] [place] [address] Nov, [facility] [address] [facility] [id number] [address] [place] [address] Nov, [facility] [address] [facility] [id number] [address] [place] [address] Nov, [facility] [address] [facility] [id number] [address] [place] [address] Nov, [facility] [address] [facility] [id number] [address] [place] [address] Oct, [facility] [address] [facility] [id number] [address] [place] [address] Oct, [facility] [address] [facility] [id number] [address] [place] [address] Oct, [facility] [address] [facility] [id number] [address] [place] [address] Aug, [facility] [address] [facility] [id number] [address] [place] [address] Aug, [facility] [address] [facility] [id number] [address] [place] [address] Aug, [facility] [address] [facility] [id number] [address] [place] [address] Jul, [facility] [address] [id number] [address] [place] [address], [place] [address] Jul, [facility] [address] [id number] [address] [place] [address], [place] [address] Jul, [facility] [address] [id number] [address] [place] [address], [place] [address] Jul, [facility] [address] [id number] [address] [place] [address], [place] [address] Jul, [facility] [address] [id number] [address] [place] [address], [place] [address] Jul, [facility] [address] [id number] [address] [place] [address], [place] [address] Jul, [facility] [address] [id number] [address] [place] [address], [place] [address] Jul, [facility] [address] [id number] [address] [place] [address], [place] [address] Jul, [facility] [address] [id number] [address] [place] [address], [place] [address] Jul, [facility] [address] [id number] [address] [place] [address], [place] [address] Jul, [facility] [address] [id number] [address] [place] [address], [place] [address] 14 Jun, 2014 [facility] [address] [id number] [address] [place] [address], [place] [address] 14 Jun, 2014 [facility] [address] [id number] [address] [place] [address], [place] [address] Jun, [facility] [address] [id number] [address] [place] [address], [place] [address] Jun, [facility] [address] [id number] [address] [place] [address], [place] [address] 17 Apr, 2014 [facility] [address] [id number] [address] [place] [address], [place] [address] Apr, [facility] [address] [id number] [address] [place] [address], [place] [address] Apr, [facility] [address] [id number] [address] [place] [address], [place] [address] Apr, [facility] [address] [id number] [address] [place] [address], [place] [address] Feb, [facility] [address] [id number] [address] [place] [address], [place] [address] Feb, [facility] [address] [id number] [address] [place] [address], [place] [address] Feb, [facility] [address] [id number] [address] [place] [address], [place] [address] Feb, [facility] [address] [id number] [address] [place] [address], [place] [address] Jan, [facility] [address] [id number] [address] [place] [address], [place] [address] Jan, [facility] [address] [id number] [address] [place] [address], [place] [address] Jan, [facility] [address] [id number] [address] [place] [address], [place] [address] Jan, [facility] [address] [id number] [address] [place] [address], [place] [address] December, [facility] [address] [id number] [address] [place] [address], [place] [address] December, [facility] [address] [id number] [address] [place] [address], [place] [address] December, [facility] [address] [id number] [address] [place] [address], [place] [address] December, [facility] [address] [id number] [address] [place] [address], [place] [address] December, [facility] [address] [id number] [address] [place] [address] December, [facility] [address] [id number] [address] [place] [address], [place] [address] Oct, [facility] [address] [id number] [address] [place] [address], [place] [address] Oct, [facility] [address] [id number] [address] [place] [address], [place] [address] Sep, [facility] [address] [id number] [address] [place] [address], [place] [address] Sep, [facility] [address] [id number] [address] [place] [address], [place] [address] Aug, [facility] [address] [id number] [address] [place] [address], [place] [address] Aug, [facility] [address] [id number] [address] [place] [address], [place] [address] Jul, [facility] [address] [id number] [address] [place] [address], [place] [address] Jul, [facility] [address] [id number] [address] [place] [address], [place] [address] May, [facility] [address] [id number] [address] [place] [address], [place] [address] May, [facility] [address] [id number] [address] [place] [address], [place] [address] May, [facility] [address] [id number] [address] [place] [address], [place] [address] Apr, [facility] [address] [id number] [address] [place] [address], [place] [address] Feb, [facility] [address] [id number] [address] [place] [address], [place] [address] Feb, [facility] [address] [id number] [address] [place] [address], [place] [address] Feb, [facility] [address] [id number] [address] [place] [address], [place] [address] 16 Feb, 2013 [facility] [address] [id number] [address] [place] [address], [place] [address] Jan, [facility] [address] [id number] [address] [place] [address], [place] [address] Jan, [facility] [address] [id number] [address] [place] [address], [place] [address] December, [facility] [address] [id number] [address] [place] [address], [place] [address] Nov, [facility] [address] [id number] [address] [place] [address], [place] [address] Nov, [facility] [address] [id number] [address] [place] [address], [place] [address] Oct, [facility] [address] [id number] [address] [place] [address], [place] [address] Oct, [facility] [address] [id number] [address] [place] [address], [place] [address] Oct, [facility] [address] [id number] [address] [place] [address], [place] [address] Aug, [facility] [address] [id number] [address] [place] [address], [place] [address] Aug, [facility] [address] [id number] [address] [place] [address], [place] [address] Jul, [facility] [address] [id number] [address] [place] [address], [place] [address] Jul, [facility] [address] [id number] [address] [place] [address], [place] [address] Jul, [facility] [address] [id number] [address] [place] [address], [place] [address] Jul, [facility] [address] [id number] [address] [place] [address], [place] [address] Jun, [facility] [address] [id number] [address] [place] [address], [place] [address] Jun, [facility] [address] [id number] [address] [place] [address], [place] [address] May, [facility] [address] [id number] [address] [place] [address], [place] [address] Mar, [facility] [address] [id number] [address] [place] [address], [place] [address] Mar, [facility] [address] [id number] [address] [place] [address], [place] [address] Jan, [facility] [address] [id number] [address] [place] [address], [place] [address] Jan, [facility] [address] [id number] [address] [place] [address], [place] [address] December, [facility] [address] [id number] [address] [place] [address], [place] [address] December, [facility] [address] [id number] [address] [place] [address], [place] [address] December, [facility] [address] [id number] [address] [place] [address], [place] [address] December, [facility] [address] [id number] [address] [place] [address], [place] [address] Sep, [facility] [address] [id number] [address] [place] [address], [place] [address] Sep, [facility] [address] [id number] [address] [place] [address], [place] [address] Jun, [facility] [address] [id number] [address] [place] [address], [place] [address] Jun, [facility] [address] [id number] [address] [place] [address], [place] [address] 18 May, 2011 [facility] [address] [id number] [address] [place] [address] Feb, [facility] [address] [id number] [address] [place] [address] Mar, [facility] [address] [id number] [address] [place] [address] Nov, [facility] [address] [id number] [address] [place] [address] Sep, [facility] [address] [id number] [address] [place] [address] Jun, [facility] [address] [id number] [address] [place] [address] Jun, [facility] [address] [id number] [address] [place] [address] May, [facility] [address] [id number] [address] [place] [address] Mar, [facility] [address] [id number] [address] [place] [address] December, IMMUNIZATIONS No Known Immunizations SOCIAL HISTORY Never Assessed REASON FOR VISIT BP Pt in for follow up [facility] PLAN OF CARE Activity Details Follow Up 3 Months Reason:[facility] VITAL SIGNS Height 64 in 2018-10-14 Weight 127.4 lbs 2018-10-14 Temperature 97.8 degrees Fahrenheit 2018-10-14 Heart Rate 104 bpm 2018-10-14 Respiratory Rate 18 2018-10-14 Oximetry 98 % 2018-10-14 BMI 21.87 kg/m2 2018-10-14 Blood pressure systolic 144 mmHg 2018-10-14 Blood pressure diastolic 68 mmHg 2018-10-14 MEDICATIONS Medication Instructions Dosage Frequency Start Date End Date Duration S danieleus BuPROPion HCl ER (SR) 200 mg Orally Twice a day 1 tablet 12h 90 Active Melatonin 3 MG Orally Once a day 1 tablet at bedtime as needed with food 24h 07 Aug, 2018 Active Multi Vitamin/Minerals - Active Tylenol Active Cetirizine HCl 10 mg Orally Once a day for itching 1 tablet 01 O 2017 Active Calcium + D3 600-200 MG-UNIT Orally Once a day 1 tablet with a meal 24h Active Fluticasone Propionate 50 MCG/ACT Nasally twice a day 1 spray in each nostril 12h 10 May, 2016 Active Aspir-81 81 MG Orally Once a day 1 tablet 24h Active Famotidine 20 mg Orally twice a day 1 tablet 12h 30 Active Lisinopril 10 MG Orally Once a day 1 tablet 24h 16 Feb, 2018 90 days Active RESULTS No Results PROCEDURES Procedure Date Ordered Result Body Site [facility] VISIT ESTABLISHED PATIENT October 14, 2018 INSTRUCTIONS MEDICATIONS ADMINISTERED No Known Medications MEDICAL [...]
--- OUTSIDE RECORDS SUMMARY | 2020-02-28 02:37 | XMS REPORT ---
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 Active 370163139 Problem Essential hypertension I10 Active 47502108 Problem Stage 3 chronic kidney disease N18.3 Active 273747421 Problem Memory loss R41.3 Active 98171163 Problem Primary insomnia F51.01 Active 397 2004 Problem Nocturnal hypoxia G47.34 Active 38 6517600 Problem Hyperlipidemia, unspecified hyperlipidemia E78.5 Active 66706120 Problem Gastroesophageal reflux disease without esophagitis K21.9 Active 492559524 Problem Anxiety F41.9 Active 50819425 Problem Other chronic gastritis without hemorrhage K29.50 Active 6596718 ALLERGIES Substance Reaction Event Type Date Status Lisinopril chronic dry cough Drug Allergy Nov, Active Sulfa(sulfonamide Antibiotics) Unknown Non Drug Allergy Nov Active ENCOUNTERS Encounter Location Date Diagnosis [facility] [address] [facility] [id number] [address] [place] [address] Nov, [facility] [address] [facility] [id number] [address] [place] [address] Oct, [facility] [address] [facility] [id number] [address] [place] [address] Oct, [facility] [address] [facility] [id number] [address] [place] [address] Oct, CN palsy, left eye H49.22 ; Primary insomnia F51.01 ; Pulsatile tinnitus of left ear H93.A2 and Seborrheic keratosis L82.1 [facility] [address] [place] [id number] [address] [place] [address] Aug, CN palsy, left eye H49.22 ; Essential hypertension I10 ; Arthralgia, unspecified joint M25.50 and Primary insomnia F51.01 [facility] [address] [place] [id number] [place] [address] Jul, Cranial nerve palsy G52.9 [facility] [address] [place] [id number] [place] [address] Jul, Cranial nerve palsy G52.9 ; Stage 3 chronic kidney disease N18.3 ; Family history of embolic stroke Z82.3 and Numbness of left hand R20.0 [place] [address] [place] [id number] [place] [address] Jun, Anxiety F41.9 and Essential hypertension I10 [place] [address] [place] [id number] [place] [address] Jun, [facility] [address] [place] [id number] [place] [address] Jun, Essential hypertension I10 [facility] [address] [place] [id number] [place] [address] May, [facility] [address] [place] [id number] [place] [address] May, Herpes zoster without compli cation B02.9 and Stage 3 chronic kidney disease N18.3 [facility] [address] [place] [id number] [address] [place] [address] Mar, Essential hypertension I10 [facility] [address] [place] [id number] [place] [address] Feb, [facility] [address] [place] [id number] [address] [place] [address] Feb, [facility] [address] [place] [id number] [place] [address] Feb, Essential hypertension I10 a nd Acute midline low back pain without sciatica M54.5 [facility] [address] [address] December, Insect bite (nonvenomous) of lower back and pelvis, initial encounter S30.860A and Bitten or stung by nonvenomous insect and other nonvenomous arthropods, initial encounter W57.XXXA [facility] [address] [address] 09 Nov, 2017 Pleurisy R09.1 [place] [address] [address] Nov, [facility] [address] [address] Oct, Hypoxemia R09.02 and Fatigue , unspecified type R53.83 [facility] [address] [address] 12 Sep, 2017 Other chronic gastritis with out hemorrhage K29.50 ; Gastroesophageal reflux disease without esophagitis K21.9 ; Hyperlipidemia, unspecified hyperlipidemia E78.5 and Arthralgia, unspecified joint M25.50 [facility] [address] [address] Aug, Hypertriglyceridemia E78.1 [facility] [address] [address] 02 May, 2017 Anxiety F41.9 [place] [address] [address] 21 Apr, 2017 Hyperlipidemia, unspecified hyperlipidemia E78.5 ; Gastroesophageal reflux disease without esophagitis K21.9 ; Forgetfulness R68.89 ; Essential hypertension I10 and Anxiety F41.9 [facility] [address] [place] [id number] [place] [address] 14 Apr, 2017 Hypertriglyceridemia E78.1 [place] [address] [address] Mar, Medicare annual wellness vis it, subsequent Z00.00 ; Hyperlipidemia, unspecified hyperlipidemia E78.5 and Essential hypertension I10 [place] [address] [place] [id number] Mar, Forgetfulness R68.89 ; Fatig ue, unspecified type R53.83 and Essential hypertension I10 [place] [address] [address] Mar, Primary osteoarthritis, 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 and Strain of left trapezius muscle, initial encounter S46.812A [place] [address] Feb, Left wrist pain M25.[address] [address] Feb, Left wrist pain M25.532 [place] [address] [address] December, Hypertriglyceridemia E78.1 ; Encounter for immunization Z23 ; Forgetfulness R68.89 and Fatigue, unspecified type R53.83 [place] [address] [address] Jun, Forgetfulness R68.89 and Rhi nitis, unspecified type J31.0 [place] [address] [address] May, [place] [address] [address] May, Hypoxemia R09.02 ; Memory lo ss R41.3 ; Arthralgia, unspecified joint M25.50 and Rhinitis, unspecified type J31.0 [place] [address] [address] Mar, Vertigo R42 ; Orthostatic hy potension I95.1 and Chronic gastritis without bleeding, unspecified gastritis type K29.50 [place] [address] [place] [id number] [place] [address] Feb, [place] [address] [address] Feb, Forgetfulness R68.89 [place] [address] [place] [id number] [place] [address] Jan, [place] [address] [address] Jan, Gastroesophageal reflux dise ase without esophagitis K21.9 ; Fatigue, unspecified type R53.83 ; Weakness R53.1 ; Forgetfulness R68.89 ; Hyperlipidemia, unspecified hyperlipidemia E78.5 and Hearing abnormally acute, unspecified laterality H93.239 [place] [address] [address] Oct, [place] [address] [address] Aug, Upper respiratory tract infe ction, unspecified type J06.9 [place] [address] [address] Aug, [place] [address] [address] Jun, Acute idiopathic gout, unspe cified site M10.00 ; Encounter for immunization Z23 ; Hyperlipidemia, unspecified hyperlipidemia E78.5 ; Gastroesophageal reflux disease without esophagitis K21.9 and Fatigue, unspecified type R53.83 [place] [address] [place] [id number] [place] [address] 17 Jan, 2015 Esophageal reflux 530.81 and Irritable bowel syndrome 564.1 [place] [address] [place] [id number] [place] [address] Jan, [place] [address] [address] Jan, Gastritis 535.50 ; Hx of col onic polyp V12.72 and Positional vertigo 386.11 [facility] [address] [id number] [address] [place] [address] Jan, [facility] [address] [facility] [id number] [address] [place] [address] 04 Jan, 2015 Dizziness 780.4 and Nausea & vomiting 787.01 [facility] [address] [id number] [address] [place] [address] Nov, [facility] [address] [id number] [address] [place] [address] Nov, [facility] [address] [id number] [address] [place] [address] Nov, [facility] [address] [facility] [id number] [address] [place] [address] Nov, [facility] [address] [facility] [id number] [address] [place] [address] Oct, [facility] [address] [facility] [id number] [address] [place] [address] Oct, [facility] [address] [facility] [id number] [address] [place] [address] Oct, [facility] [address] [facility] [id number] [address] [place] [address] Aug, [facility] [address] [facility] [id number] [address] [place] [address] Aug, [facility] [address] [facility] [id number] [address] [place] [address] Aug, [facility] [address] [facility] [id number] [address] [place] [address] Jul, [facility] [address] [facility] [id number] [address] [place] [address] Jul, [facility] [address] [facility] [id number] [address] [place] [address] Jul, [facility] [address] [id number] [address] [place] [address], [place] [address] Jul, [facility] [address] [id number] [address] [place] [address], [place] [address] Jul, [facility] [address] [id number] [address] [place] [address], [place] [address] Jul, [facility] [address] [id number] [address] [place] [address], [place] [address] Jul, [facility] [address] [id number] [address] [place] [address], [place] [address] Jul, [facility] [address] [id number] [address] [place] [address], [place] [address] Jul, [facility] [address] [id number] [address] [place] [address], [place] [address] Jul, [facility] [address] [id number] [address] [place] [address], [place] [address] Jul, [facility] [address] [id number] [address] [place] [address], [place] [address] Jun, [facility] [address] [id number] [address] [place] [address], [place] [address] 14 Jun, 2014 [facility] [address] [id number] [address] [place] [address], [place] [address] Jun, [facility] [address] [id number] [address] [place] [address], [place] [address] Jun, [facility] [address] [id number] [address] [place] [address], [place] [address] 17 Apr, 2014 [facility] [address] [id number] [address] [place] [address], [place] [address] 17 Apr, 2014 [facility] [address] [id number] [address] [place] [address], [place] [address] 17 Apr, 2014 [facility] [address] [id number] [address] [place] [address], [place] [address] Apr, [facility] [address] [id number] [facility] [place] [address] Feb, [facility] [address] [id number] [address] [place] [address], [place] [address] Feb, [facility] [address] [id number] [address] [place] [address], [place] [address] Feb, [facility] [address] [id number] [address] [place] [address], [place] [address] Feb, [facility] [address] [id number] [address] [place] [address], [place] [address] Jan, [facility] [address] [id number] [address] [place] [address], [place] [address] Jan, [facility] [address] [id number] [address] [place] [address], [place] [address] Jan, [facility] [address] [id number] [address] [place] [address], [place] [address] Jan, [facility] [address] [id number] [address] [place] [address], [place] [address] December, [facility] [address] [id number] [address] [place] [address], [place] [address] December, [facility] [address] [id number] [address] [place] [address], [place] [address] December, [facility] [address] [id number] [address] [place] [address], [place] [address] December, [facility] [address] [id number] [address] [place] [address], [place] [address] December, [facility] [address] [id number] [address] [place] [address], [place] [address] December, [facility] [address] [id number] [address] [place] [address], [place] [address] Oct, [facility] [address] [id number] [address] [place] [address], [place] [address] Oct, [facility] [address] [id number] [address] [place] [address], [place] [address] Sep, [facility] [address] [id number] [address] [place] [address], [place] [address] Sep, [facility] [address] [id number] [address] [place] [address], [place] [address] Aug, [facility] [address] [id number] [address] [place] [address], [place] [address] Aug, [facility] [address] [id number] [address] [place] [address], [place] [address] Jul, [facility] [address] [id number] [address] [place] [address], [place] [address] Jul, [facility] [address] [id number] [address] [place] [address], [place] [address] May, [facility] [address] [id number] [address] [place] [address], [place] [address] May, [facility] [address] [id number] [address] [place] [address], [place] [address] May, [facility] [address] [id number] [address] [place] [address], [place] [address] Apr, [facility] [address] [id number] [address] [place] [address], [place] [address] Feb, [facility] [address] [id number] [address] [place] [address], [place] [address] Feb, [facility] [address] [id number] [address] [place] [address], [place] [address] Feb, [facility] [address] [id number] [address] [place] [address], [place] [address] Feb, [facility] [address] [id number] [address] [place] [address], [place] [address] Jan, [facility] [address] [id number] [address] [place] [address], [place] [address] Jan, [facility] [address] [id number] [address] [place] [address], [place] [address] December, [facility] [address] [id number] [address] [place] [address], [place] [address] 16 Nov, 2012 [facility] [address] [id number] [address] [place] [address], [place] [address] Nov, [facility] [address] [id number] [address] [place] [address], [place] [address] Oct, [facility] [address] [id number] [address] [place] [address], [place] [address] 06 Oct, 2012 [facility] [address] [id number] [address] [place] [address], [place] [address] Oct, [facility] [address] [id number] [address] [place] [address], [place] [address] Aug, [facility] [address] [id number] [address] [place] [address], [place] [address] Aug, [facility] [address] [id number] [address] [place] [address], [place] [address] Jul, [facility] [address] [id number] [address] [place] [address], [place] [address] Jul, [facility] [address] [id number] [address] [place] [address], [place] [address] Jul, [facility] [address] [id number] [address] [place] [address], [place] [address] Jul, [facility] [address] [id number] [address] [place] [address], [place] [address] Jun, [facility] [address] [id number] [address] [place] [address], [place] [address] Jun, [facility] [address] [id number] [address] [place] [address], [place] [address] May, [facility] [address] [id number] [address] [place] [address], [place] [address] Mar, [facility] [address] [id number] [address] [place] [address], [place] [address] Mar, [facility] [address] [id number] [address] [place] [address], [place] [address] Jan, [facility] [address] [id number] [address] [place] [address], [place] [address] Jan, [facility] [address] [id number] [address] [place] [address], [place] [address] December, [facility] [address] [id number] [address] [place] [address], [place] [address] December, [facility] [address] [id number] [address] [place] [address], [place] [address] December, [facility] [address] [id number] [address] [place] [address], [place] [address] December, [facility] [address] [id number] [address] [place] [address], [place] [address] Sep, [facility] [address] [id number] [address] [place] [address], [place] [address] Sep, [facility] [address] [id number] [address] [place] [address], [place] [address] Jun, [facility] [address] [id number] [address] [place] [address], [place] [address] Jun, [facility] [address] [id number] [address] [place] [address], [place] [address] 18 May, 2011 [facility] [address] [id number] [address] [place] [address], [place] [address] Feb, [facility] [address] [id number] [address] [place] [address] Mar, [facility] [address] [id number] [address] [place] [address] Nov, [facility] [address] [id number] [address] [place] [address] Sep, [facility] [address] [facility] [id number] [address] [place] [address] Jun, [facility] [address] [id number] [address] [place] [address] Jun, [facility] [address] [facility] [id number] [address] [place] [address] May, [facility] [address] [facility] [id number] [address] [place] [address] Mar, [facility] [address] [facility] [id number] [address] [place] [address] December, IMMUNIZATIONS No Known Immunizations SOCIAL HISTORY Never Assessed REASON FOR VISIT EMR[place] [place] PLAN OF CARE VITAL SIGNS MEDICATIONS Medication Instructions Dosage Frequency Start Date End Date Duration S tatus Ventolin HFA 90 mcg/actuation inhale 2 p uff by Inhalation route as needed every 6 hours PRN for cough or wheeze Jul, Active Aricept 5 mg 1 tablet by Oral route 1 time per day 2013 Active Stool Softener 100 mg 3 Capsule 1 time per dayat night. December, Active Lorazepam 0.5 mg by Oral route 2 times per day PRN jose e bid prn for anxiety December, Active B Complex-Vitamin B12 December, Active RESULTS No Results PROCEDURES No Known procedures [...]
--- OUTSIDE RECORDS SUMMARY | 2020-02-28 02:37 | XMS REPORT ---
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 Name Role Phone Migration, Doctor Unavailable Unavailable PROBLEMS Type Condition ICD9-CM Code OVI19-JM Code Onset Dates Condition S tatus SNOMED Code Problem Colon polyp K63.5 Active 44861158 Problem Nocturnal hypoxia G47.34 Active 38 4674033 Problem Gastroesophageal reflux disease with esophagitis K 21.0 Active 954131751 Problem Rhinitis, unspecified type J31.0 Act michael 94739347 Problem Primary osteoarthritis, 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 Active 460178433 Problem Essential hypertension I10 Active 04518926 Problem Stage 3 chronic kidney disease N18.3 Active 449782321 Problem Memory loss R41.3 Active 04011180 Problem Primary insomnia F51.01 Active 397 2004 Problem Hypertriglyceridemia E78.1 Active 109716987 Problem Hyperlipidemia, unspecified hyperlipidemia E78.5 Active 37847412 Problem Gastroesophageal reflux disease without esophagitis K21.9 Active 184525099 Problem Anxiety F41.9 Active 45506652 Problem Other chronic gastritis without hemorrhage K29.50 Active 3791303 ALLERGIES No Information ENCOUNTERS Encounter Location Date Diagnosis [place] [address] [address] [id number] [address] [place] [address] Nov, [facility] [address] [id number] [address] [place] [address] Oct, [facility] [address] [id number] [address] [place] [address] Oct, [facility] [address] [id number] [address] [place] [address] Oct, CN palsy, left eye H49.22 ; Primary insomnia F51.01 ; Pulsatile tinnitus of left ear H93.A2 and Seborrheic keratosis L82.1 [facility] [address] [id number] [address] [place] [address] Aug, CN palsy, left eye H49.22 ; Essential hypertension I10 ; Arthralgia, unspecified joint M25.50 and Primary insomnia F51.01 [facility] [address] [facility] [id number] [address] [place] [address] Jul, Cranial nerve palsy G52.9 [facility] [address] [address] [id number] [address] [place] [address] Jul, Cranial nerve palsy G52.9 ; Stage 3 chronic kidney disease N18.3 ; Family history of embolic stroke Z82.3 and Numbness of left hand R20.0 [place] [address] [id number] [address] [place] [address] Jun, Anxiety F41.9 and Essential hypertension I10 [place] [address] [id number] [address] [place] [address] Jun, [place] [address] [address] [id number] [address] [place] [address] Jun, Essential hypertension I10 [facility] [address] [address] [id number] [address] [place] [address] May, [facility] [address] [id number] [address] [place] [address] May, Herpes zoster without compli cation B02.9 and Stage 3 chronic kidney disease N18.3 [facility] [address] [address] [id number] [place] [address] Mar, Essential hypertension I10 [facility] [address] [facility] [id number] [address] [place] [address] Feb, [facility] [address] [facility] [id number] [address] [place] [address] Feb, [facility] [address] [facility] [id number] [address] [place] [address] Feb, Essential hypertension I10 a nd Acute midline low back pain without sciatica M54.5 [facility] [address] [id number] [address] [place] [address] December, Insect bite (nonvenomous) of lower back and pelvis, initial encounter S30.860A and Bitten or stung by nonvenomous insect and other nonvenomous arthropods, initial encounter W57.XXXA [facility] [address] [address] Nov, Pleurisy R09.1 [place] [address] [address] Nov, [place] [address] [address] Oct, Hypoxemia R09.02 and Fatigue , unspecified type R53.83 [place] [address] [address] Sep, Other chronic gastritis with out hemorrhage K29.50 ; Gastroesophageal reflux disease without esophagitis K21.9 ; Hyperlipidemia, unspecified hyperlipidemia E78.5 and Arthralgia, unspecified joint M25.50 [place] [address] [address] Aug, Hypertriglyceridemia E78.1 [place] [address] [address] May, Anxiety F41.[address] [address] Apr, Hyperlipidemia, unspecified hyperlipidemia E78.5 ; Gastroesophageal reflux disease without esophagitis K21.9 ; Forgetfulness R68.89 ; Essential hypertension I10 and Anxiety F41.9 [place] [address] [address] Apr, Hypertriglyceridemia E78.1 [place] [address] [address] Mar, Medicare annual wellness vis it, subsequent Z00.00 ; Hyperlipidemia, unspecified hyperlipidemia E78.5 and Essential hypertension I10 [place] [address] [id number] [address] [place] [address] Mar, Forgetfulness R68.89 ; Fatig ue, unspecified type R53.83 and Essential hypertension I10 [place] [address] [address] [id number] [address] [place] [address] Mar, Primary osteoarthritis, 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 and Strain of left trapezius muscle, initial encounter S46.812A [place] [address] [id number] [address] [place] [address] Feb, Left wrist pain M25.532 [place] [address] [address] Feb, Left wrist pain M25.532 [place] [address] [address] December, Hypertriglyceridemia E78.1 ; Encounter for immunization Z23 ; Forgetfulness R68.89 and Fatigue, unspecified type R53.83 [place] [address] [address] Jun, Forgetfulness R68.89 and Rhi nitis, unspecified type J31.0 [place] [address] [address] May, [place] [address] [address] May, Hypoxemia R09.02 ; Memory lo ss R41.3 ; Arthralgia, unspecified joint M25.50 and Rhinitis, unspecified type J31.0 [place] [address] [address] [id number] [place] [address] Mar, Vertigo R42 ; Orthostatic hy potension I95.1 and Chronic gastritis without bleeding, unspecified gastritis type K29.50 [place] [address] [address] [id number] [address] [place] [address] Feb, [place] [address] [place] [address] [id number] [address] [place] [address] Feb, Forgetfulness R68.89 [place] [address] [address] 24 Jan, [address] [address] Jan, Gastroesophageal reflux dise ase without esophagitis K21.9 ; Fatigue, unspecified type R53.83 ; Weakness R53.1 ; Forgetfulness R68.89 ; Hyperlipidemia, unspecified hyperlipidemia E78.5 and Hearing abnormally acute, unspecified laterality H93.[address] [address] Oct, [address] [address] Aug, Upper respiratory tract infe ction, unspecified type J06.[address] [address] Aug, [address] [address] Jun, Acute idiopathic gout, unspe cified site M10.00 ; Encounter for immunization Z23 ; Hyperlipidemia, unspecified hyperlipidemia E78.5 ; Gastroesophageal reflux disease without esophagitis K21.9 and Fatigue, unspecified type R53.83 [place] [id number] [place] [address] 17 Jan, 2015 Esophageal reflux 530.81 and Irritable bowel syndrome 564.[address] [address] Jan, [address] [address] Jan, Gastritis 535.50 ; Hx of col onic polyp V12.72 and Positional vertigo 386.[address] [place] [address] Jan, [facility] [address] [id number] [address] [place] [address] Jan, Dizziness 780.4 and Nausea & vomiting 787.01 [facility] [address] [id number] [address] [place] [address] Nov, [facility] [address] [id number] [address] [place] [address] Nov, [facility] [address] [id number] [address] [place] [address], [place] [address] Nov, [facility] [address] [id number] [address] [place] [address] Nov, [facility] [address] [id number] [address] [place] [address] Oct, [facility] [address] [id number] [address] [place] [address] Oct, [facility] [address] [id number] [address] [place] [address] Oct, [facility] [address] [id number] [address] [place] [address] Aug, [facility] [address] [id number] [address] [place] [address] Aug, [facility] [address] [id number] [address] [place] [address] Aug, [facility] [address] [id number] [address] [place] [address] Jul, [facility] [address] [id number] [address] [place] [address] Jul, [facility] [address] [id number] [address] [place] [address] Jul, [facility] [address] [id number] [address] [place] [address] Jul, [facility] [address] [id number] [address] [place] [address], [place] [address] Jul, [facility] [place] [facility] [address] [id number] [address] [place] [address], [place] [address] 08 Jul, 2014 [facility] [address] [id number] [address] [place] [address], [place] [address] Jul, [facility] [place] [facility] [address] [id number] [address] [place] [address], [place] [address] Jul, [facility] [place] [facility] [address] [id number] [address] [place] [address], [place] [address] Jul, [facility] [place] [facility] [address] [id number] [address] [place] [address], [place] [address] Jul, [facility] [place] [facility] [address] [id number] [address] [place] [address], [place] [address] Jul, [facility] [place] [facility] [address] [id number] [address] [place] [address], [place] [address] 14 Jun, 2014 [facility] [place] [facility] [address] [id number] [address] [place] [address], [place] [address] 14 Jun, 2014 [facility] [place] [facility] [address] [id number] [address] [place] [address], [place] [address] Jun, [facility] [place] [facility] [address] [id number] [address] [place] [address], [place] [address] Jun, [facility] [place] [facility] [address] [id number] [address] [place] [address], [place] [address] 17 Apr, 2014 [facility] [place] [facility] [address] [id number] [address] [place] [address], [place] [address] 17 Apr, 2014 [facility] [place] [facility] [address] [id number] [address] [place] [address], [place] [address] 17 Apr, 2014 [facility] [place] [facility] [address] [id number] [address] [place] [address], [place] [address] 17 Apr, 2014 [facility] [place] [facility] [address] [id number] [facility] [place] [address] Feb, [facility] [address] [id number] [address] [place] [address], [place] [address] Feb, [facility] [address] [id number] [facility] [place] [address] Feb, [facility] [address] [id number] [address] [place] [address], [place] [address] Feb, [facility] [address] [id number] [address] [place] [address], [place] [address] Jan, [facility] [address] [id number] [address] [place] [address], [place] [address] Jan, [facility] [address] [id number] [address] [place] [address], [place] [address] Jan, [facility] [address] [id number] [address] [place] [address], [place] [address] Jan, [facility] [address] [id number] [address] [place] [address], [place] [address] December, [facility] [address] [id number] [address] [place] [address], [place] [address] December, [facility] [address] [id number] [address] [place] [address], [place] [address] December, [facility] [address] [id number] [address] [place] [address], [place] [address] December, [facility] [address] [id number] [address] [place] [address], [place] [address] December, [facility] [address] [id number] [address] [place] [address], [place] [address] December, [facility] [address] [id number] [address] [place] [address], [place] [address] Oct, [facility] [address] [id number] [address] [place] [address], [place] [address] Oct, [facility] [address] [id number] [address] [place] [address], [place] [address] Sep, [facility] [address] [id number] [address] [place] [address], [place] [address] Sep, [facility] [address] [id number] [address] [place] [address], [place] [address] Aug, [facility] [address] [id number] [address] [place] [address], [place] [address] Aug, [facility] [address] [id number] [address] [place] [address], [place] [address] Jul, [facility] [address] [id number] [address] [place] [address], [place] [address] Jul, [facility] [address] [id number] [address] [place] [address], [place] [address] May, [facility] [address] [id number] [address] [place] [address], [place] [address] May, [facility] [address] [id number] [address] [place] [address], [place] [address] May, [facility] [address] [id number] [address] [place] [address], [place] [address] Apr, [facility] [address] [id number] [address] [place] [address], [place] [address] Feb, [facility] [address] [id number] [address] [place] [address] Feb, [facility] [address] [id number] [address] [place] [address], [place] [address] Feb, [facility] [address] [id number] [address] [place] [address], [place] [address] Feb, [facility] [address] [id number] [address] [place] [address], [place] [address] Jan, [facility] [address] [id number] [address] [place] [address], [place] [address] Jan, [facility] [address] [id number] [address] [place] [address], [place] [address] December, [facility] [address] [id number] [address] [place] [address], [place] [address] 16 Nov, 2012 [facility] [address] [id number] [address] [place] [address], [place] [address] 04 Nov, 2012 [facility] [address] [id number] [address] [place] [address], [place] [address] 13 Oct, 2012 [facility] [address] [id number] [address] [place] [address], [place] [address] 06 Oct, 2012 [facility] [address] [id number] [address] [place] [address], [place] [address] Oct, [facility] [address] [id number] [address] [place] [address], [place] [address] Aug, [facility] [address] [id number] [address] [place] [address], [place] [address] Aug, [facility] [address] [id number] [address] [place] [address], [place] [address] Jul, [facility] [address] [id number] [address] [place] [address], [place] [address] Jul, [facility] [address] [id number] [address] [place] [address], [place] [address] Jul, [facility] [address] [id number] [address] [place] [address], [place] [address] Jul, [facility] [address] [id number] [address] [place] [address], [place] [address] Jun, [facility] [address] [id number] [address] [place] [address], [place] [address] Jun, [facility] [address] [id number] [address] [place] [address], [place] [address] May, [facility] [place] [facility] [address] [id number] [address] [place] [address], [place] [address] Mar, [facility] [address] [id number] [address] [place] [address], [place] [address] Mar, [facility] [address] [id number] [address] [place] [address], [place] [address] Jan, [facility] [address] [id number] [address] [place] [address], [place] [address] Jan, [facility] [address] [id number] [address] [place] [address], [place] [address] December, [facility] [address] [id number] [address] [place] [address], [place] [address] December, [facility] [address] [id number] [address] [place] [address], [place] [address] December, [facility] [address] [id number] [address] [place] [address], [place] [address] December, [facility] [address] [id number] [address] [place] [address], [place] [address] Sep, [facility] [address] [id number] [address] [place] [address], [place] [address] Sep, [facility] [address] [id number] [address] [place] [address], [place] [address] 14 Jun, 2011 [facility] [address] [id number] [address] [place] [address], [place] [address] 14 Jun, 2011 [facility] [address] [id number] [address] [place] [address], [place] [address] 18 May, 2011 [facility] [address] [id number] [address] [place] [address], [place] [address] Feb, [facility] [address] [id number] [address] [place] [address], [place] [address] 10 Mar, 2010 [facility] [address] [id number] [address] [place] [address] Nov, [facility] [address] [facility] [id number] [address] [place] [address] Sep, [facility] [address] [facility] [id number] [address] [place] [address] Jun, [facility] [address] [facility] [id number] [address] [place] [address] Jun, [facility] [address] [facility] [id number] [address] [place] [address] May, [facility] [address] [facility] [id number] [address] [place] [address] Mar, [facility] [address] [facility] [id number] [address] [place] [address] December, IMMUNIZATIONS No Known Immunizations SOCIAL HISTORY Never Assessed [place]AS[place] [place] VITAL SIGNS MEDICATIONS Unknown [...]
--- OUTSIDE RECORDS SUMMARY | 2020-02-28 02:37 | XMS REPORT ---
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 Active 182705289 Problem Rhinitis, unspecified type J31.0 Act michael 83315308 Problem Hypertriglyceridemia E78.1 Active 513228899 Problem Colon polyp K63.5 Active 35424422 Problem Gastroesophageal reflux disease with esophagitis K 21.0 Active 060073565 Problem Nocturnal hypoxia G47.34 Active 38 9638878 Problem Stage 3 chronic kidney disease N18.3 Active 103819479 Problem Other chronic gastritis without hemorrhage K29.50 Active 7972115 Problem Hyperlipidemia, unspecified hyperlipidemia E78.5 Active 39253680 Problem Essential hypertension I10 Active 98387298 Problem Anxiety F41.9 Active 39633694 Problem Gastroesophageal reflux disease without esophagitis K21.9 Active 391110299 ALLERGIES Substance Reaction Event Type Date Status Sulfamethoxazole-Trimethoprim Unknown Drug Allergy Jul, 8 Active Penicillin V Potassium Unknown Drug Allergy Jul, Activ e Lisinopril chronic dry cough Drug Allergy Jul, Active ENCOUNTERS Encounter Location Date Diagnosis [facility] [place] [address] [facility]NOTE 3] [id number] [address] [place] [address] Aug, [facility] [place] [address] [facility]NOTE 3] [id number] [address] [place] [address] Jul, Cranial nerve palsy G52.9 [facility] [place] [address] [facility]NOTE 3] [id number] [address] [place] [address] Jul, Cranial nerve palsy G52.9 ; Stage 3 chronic kidney disease N18.3 ; Family history of embolic stroke Z82.3 and Numbness of left hand R20.0 [facility] [place] [address] [address] Jun, Anxiety F41.9 and Essential hypertension I10 [facility] [place] [address] [place] [id number] [place] [address] Jun, [facility] [place] [address] [address] Jun, Essential hypertension I10 [facility] [place] [address] [address] May, [facility] [place] [address] [address] May, Herpes zoster without compli cation B02.9 and Stage 3 chronic kidney disease N18.3 [place] [address] [address] Mar, Essential hypertension I10 [facility] [place] [address] [address] Feb, [facility] [place] [address] [address] Feb, [facility] [place] [address] [address] Feb, Essential hypertension I10 a nd Acute midline low back pain without sciatica M54.5 [facility] [address] [address] December, Insect bite (nonvenomous) of lower back and pelvis, initial encounter S30.860A and Bitten or stung by nonvenomous insect and other nonvenomous arthropods, initial encounter W57.XXXA [facility] [place] [address] [place] [id number] [address] [place] [address] Nov, Pleurisy R09.1 [place] [address] [address] 04 Nov, 2017 [place] [address] [facility]NOTE 3] [id number] [address] [place] [address] 14 Oct, 2017 Hypoxemia R09.02 and Fatigue , unspecified type R53.83 [place] [address] [facility]NOTE 3] [id number] [address] [place] [address] 12 Sep, 2017 Other chronic gastritis with out hemorrhage K29.50 ; Gastroesophageal reflux disease without esophagitis K21.9 ; Hyperlipidemia, unspecified hyperlipidemia E78.5 and Arthralgia, unspecified joint M25.50 [place] [address] [place] [id number] [address] [place] [address] Aug, Hypertriglyceridemia E78.1 [place] [address] [place] [id number] [address] [place] [address] 02 May, 2017 Anxiety F41.9 [place] [address] [address] 21 Apr, 2017 Hyperlipidemia, unspecified hyperlipidemia E78.5 ; Gastroesophageal reflux disease without esophagitis K21.9 ; Forgetfulness R68.89 ; Essential hypertension I10 and Anxiety F41.9 [place] [address] [place] [id number] [address] [place] [address] 14 Apr, 2017 Hypertriglyceridemia E78.1 [place] [address] [place] [id number] [address] [place] [address] 30 Mar, 2017 Medicare annual wellness vis it, subsequent Z00.00 ; Hyperlipidemia, unspecified hyperlipidemia E78.5 and Essential hypertension I10 [place] [address] [facility]NOTE 3] [id number] [address] [place] [address] Mar, Forgetfulness R68.89 ; Fatig ue, unspecified type R53.83 and Essential hypertension I10 [place] [address] [place] [id number] [address] [place] [address] Mar, Primary osteoarthritis, 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 and Strain of left trapezius muscle, initial encounter S46.812A [place] [address] [address] 14 Feb, 2017 Left wrist pain M25.532 [place] [address] [address] Feb, Left wrist pain M25.532 [place] [address] [address] December, Hypertriglyceridemia E78.1 ; Encounter for immunization Z23 ; Forgetfulness R68.89 and Fatigue, unspecified type R53.83 [place] [address] [address] Jun, Forgetfulness R68.89 and Rhi nitis, unspecified type J31.0 [place] [address] [address] May, [place] [address] [address] May, Hypoxemia R09.02 ; Memory lo ss R41.3 ; Arthralgia, unspecified joint M25.50 and Rhinitis, unspecified type J31.0 [place] [address] [address] Mar, Vertigo R42 ; Orthostatic hy potension I95.1 and Chronic gastritis without bleeding, unspecified gastritis type K29.50 [place] [address] [address] Feb, [place] [address] [address] Feb, Forgetfulness R68.89 [place] [address] [address] Jan, [place] [address] [address] Jan, Gastroesophageal reflux dise ase without esophagitis K21.9 ; Fatigue, unspecified type R53.83 ; Weakness R53.1 ; Forgetfulness R68.89 ; Hyperlipidemia, unspecified hyperlipidemia E78.5 and Hearing abnormally acute, unspecified laterality H93.[address] [address] Oct, [place] [address] [address] Aug, Upper respiratory tract infe ction, unspecified type J06.[address] [address] Aug, [address] [address] Jun, Acute idiopathic gout, unspe cified site M10.00 ; Encounter for immunization Z23 ; Hyperlipidemia, unspecified hyperlipidemia E78.5 ; Gastroesophageal reflux disease without esophagitis K21.9 and Fatigue, unspecified type R53.[address] [address] 17 Jan, 2015 Esophageal reflux 530.81 and Irritable bowel syndrome 564.[address] [address] Jan, [address] [address] Jan, Gastritis 535.50 ; Hx of col onic polyp V12.72 and Positional vertigo 386.[address] [address] Jan, [address] [address] Jan, Dizziness 780.4 and Nausea & vomiting 787.[address] [address] Nov, [place] [id number] [address] [place] [address] Nov, [id number] [place] [address], [place] [address] 14 Nov, 2014 [facility] [address] [id number] [address] [place] [address], [place] [address] 13 Nov, 2014 [facility] [address] [id number] [address] [place] [address], [place] [address] 16 Oct, 2014 [facility] [address] [id number] [address] [place] [address], [place] [address] Oct, [facility] [address] [id number] [address] [place] [address], [place] [address] Oct, [facility] [address] [id number] [address] [place] [address], [place] [address] Aug, [facility] [address] [id number] [address] [place] [address], [place] [address] Aug, [facility] [place] [address] [id number] [address] [place] [address], [place] [address] Aug, [facility] [address] [id number] [address] [place] [address], [place] [address] Jul, [facility] [address] [id number] [address] [place] [address], [place] [address] Jul, [facility] [address] [id number] [address] [place] [address], [place] [address] Jul, [facility] [address] [id number] [address] [place] [address], [place] [address] Jul, [facility] [address] [id number] [address] [place] [address], [place] [address] 10 Jul, 2014 [facility] [address] [id number] [address] [place] [address], [place] [address] 08 Jul, 2014 [facility] [address] [id number] [address] [place] [address], [place] [address] 08 Jul, 2014 [facility] [address] [id number] [address] [place] [address], [place] [address] Jul, [facility] [address] [id number] [address] [place] [address], [place] [address] 05 Jul, 2014 [facility] [address] [id number] [address] [place] [address], [place] [address] Jul, [facility] [address] [id number] [address] [place] [address], [place] [address] Jul, [facility] [address] [id number] [address] [place] [address], [place] [address] Jun, [facility] [address] [id number] [address] [place] [address], [place] [address] Jun, [facility] [address] [id number] [address] [place] [address], [place] [address] Jun, [facility] [address] [id number] [address] [place] [address], [place] [address] Jun, [facility] [address] [id number] [address] [place] [address], [place] [address] 17 Apr, 2014 [facility] [address] [id number] [address] [place] [address], [place] [address] 17 Apr, 2014 [facility] [address] [id number] [address] [place] [address], [place] [address] Apr, [facility] [address] [id number] [address] [place] [address], [place] [address] Apr, [facility] [address] [id number] [address] [place] [address], [place] [address] Feb, [facility] [address] [id number] [address] [place] [address], [place] [address] Feb, [facility] [address] [id number] [address] [place] [address], [place] [address] Feb, [facility] [address] [id number] [address] [place] [address], [place] [address] Feb, [facility] [address] [id number] [address] [place] [address] Jan, [facility] [address] [id number] [address] [place] [address], [place] [address] Jan, [facility] [address] [id number] [address] [place] [address], [place] [address] Jan, [facility] [address] [id number] [address] [place] [address], [place] [address] Jan, [facility] [address] [id number] [address] [place] [address], [place] [address] December, [facility] [address] [id number] [address] [place] [address], [place] [address] December, [facility] [address] [id number] [address] [place] [address], [place] [address] December, [facility] [address] [id number] [address] [place] [address], [place] [address] December, [facility] [address] [id number] [address] [place] [address], [place] [address] December, [facility] [address] [id number] [address] [place] [address], [place] [address] December, [facility] [address] [id number] [address] [place] [address], [place] [address] Oct, [facility] [address] [id number] [address] [place] [address], [place] [address] Oct, [facility] [address] [id number] [address] [place] [address], [place] [address] Sep, [facility] [address] [id number] [address] [place] [address], [place] [address] Sep, [facility] [address] [id number] [address] [place] [address], [place] [address] Aug, [facility] [address] [id number] [address] [place] [address], [place] [address] Aug, [facility] [address] [id number] [address] [place] [address], [place] [address] Jul, [facility] [address] [id number] [address] [place] [address], [place] [address] Jul, [facility] [address] [id number] [address] [place] [address], [place] [address] May, [facility] [address] [id number] [address] [place] [address], [place] [address] May, [facility] [address] [id number] [address] [place] [address], [place] [address] May, [facility] [address] [id number] [address] [place] [address], [place] [address] Apr, [facility] [address] [id number] [address] [place] [address], [place] [address] Feb, [facility] [address] [id number] [address] [place] [address], [place] [address] Feb, [facility] [address] [id number] [address] [place] [address], [place] [address] Feb, [facility] [address] [id number] [address] [place] [address], [place] [address] Feb, [facility] [address] [id number] [address] [place] [address], [place] [address] Jan, [facility] [address] [id number] [address] [place] [address], [place] [address] Jan, [facility] [address] [id number] [address] [place] [address], [place] [address] December, [facility] [address] [id number] [address] [place] [address], [place] [address] Nov, [facility] [address] [id number] [address] [place] [address], [place] [address] Nov, [facility] [address] [id number] [address] [place] [address], [place] [address] 13 Oct, 2012 [facility] [address] [id number] [address] [place] [address], [place] [address] Oct, [facility] [address] [id number] [address] [place] [address], [place] [address] Oct, [facility] [address] [id number] [address] [place] [address], [place] [address] Aug, [facility] [address] [id number] [address] [place] [address], [place] [address] Aug, [facility] [address] [id number] [address] [place] [address], [place] [address] Jul, [facility] [address] [id number] [address] [place] [address], [place] [address] Jul, [facility] [address] [id number] [address] [place] [address], [place] [address] Jul, [facility] [address] [id number] [address] [place] [address], [place] [address] Jul, [facility] [address] [id number] [address] [place] [address], [place] [address] Jun, [facility] [address] [id number] [address] [place] [address], [place] [address] Jun, [facility] [address] [id number] [address] [place] [address], [place] [address] May, [facility] [address] [id number] [address] [place] [address], [place] [address] Mar, [facility] [address] [id number] [address] [place] [address], [place] [address] Mar, [facility] [address] [id number] [address] [place] [address], [place] [address] Jan, [facility] [address] [id number] [address] [place] [address], [place] [address] Jan, [facility] [address] [id number] [address] [place] [address], [place] [address] December, [facility] [address] [id number] [address] [place] [address], [place] [address] December, [facility] [address] [id number] [address] [place] [address], [place] [address] December, [facility] [address] [id number] [address] [place] [address], [place] [address] December, [facility] [address] [id number] [address] [place] [address], [place] [address] 17 Sep, 2011 [facility] [address] [id number] [address] [place] [address], [place] [address] Sep, [facility] [address] [id number] [address] [place] [address], [place] [address] 14 Jun, 2011 [facility] [address] [id number] [address] [place] [address], [place] [address] 14 Jun, 2011 [facility] [address] [id number] [address] [place] [address], [place] [address] 18 May, 2011 [facility] [address] [id number] [address] [place] [address], [place] [address] Feb, [facility] [address] [id number] [address] [place] [address], [place] [address] Mar, [facility] [address] [id number] [address] [place] [address], [place] [address] Nov, [facility] [address] [id number] [address] [place] [address], [place] [address] 18 Sep, 2009 [facility] [address] [id number] [address] [place] [address], [place] [address] Jun, [facility] [address] [id number] [address] [place] [address], [place] [address] 11 Jun, 2009 [facility] [address] [id number] [address] [place] [address], [place] [address] May, [facility] [address] [facility]] [id number] [address] [place] [address] Mar, [facility] [address] [facility] 3] [id number] [address] [place] [address] December, IMMUNIZATIONS No Known Immunizations SOCIAL HISTORY Never Assessed REASON FOR VISIT Blood pressure Pt in for follow up [facility] PLAN OF CARE Activity Details Follow Up 4 Weeks Reason:FU for double vision Pending Test ESR/SED RATE (IN HOUSE) Pending Test Carotid Ultrasound VITAL SIGNS Height 64 in 2018-07-08 Weight 128.2 lbs 2018-07-08 Temperature 98.2 degrees Fahrenheit 2018-07-08 Heart Rate 102 bpm 2018-07-08 Respiratory Rate 18 2018-07-08 BMI 22.00 kg/m2 2018-07-08 Blood pressure systolic 154 mmHg 2018-07-08 Blood pressure diastolic 82 mmHg 2018-07-08 MEDICATIONS Medication Instructions Dosage Frequency Start Date End Date Duration S tatus Calcium + D3 600-200 MG-UNIT Orally Once a day 1 tablet with a meal 24h Active Multi Vitamin/Minerals - Active Aspir-81 81 MG Orally Once a day 1 tablet 24h Active Lisinopril 5 MG Orally Once a day 1 tablet 24h 16 Feb, 2018 90 days Active Fluticasone Propionate 50 MCG/ACT Nasally twice a day 1 spray in each nostril 12h 10 May, 2016 Active Cetirizine HCl 10 mg Orally Once a day for itching 1 tablet 01 O 2017 Active BuPROPion HCl ER (SR) 200 mg Orally Twice a day 1 tablet 12h 90 Active Famotidine 20 mg Orally twice a day 1 tablet 12h 30 Active Tylenol Active RESULTS No Results PROCEDURES Procedure Date Ordered Result Body Site LAB NOT BILLED BY [facility] Jul 08, 2018 RBC SED RATE, NONAUTOMATED Jul 08, 2018 [facility] VISIT ESTABLISHED PATIENT Jul 08, 2018 VENIPUNCT, ROUTINE* Jul 08, 2018 INSTRUCTIONS MEDICATIONS ADMINISTERED No Known Medications [...] small gastric polyp. Dr Albina france 04/2015 Hospitalization History Hospitalization for surgery only
--- OUTSIDE RECORDS SUMMARY | 2020-02-28 02:37 | XMS REPORT ---
Author Author Lisy Valdovinos Doctor Organization [facility] Address Unknown Phone Unavailable Care Team Providers Care Coordinate Measuring Machine Technician Name Role Phone Migration, Doctor Unavailable Unavailable PROBLEMS Type Condition ICD9-CM Code ZIR64-WH Code Onset Dates Condition S tatus SNOMED Code Problem Hypertriglyceridemia E78.1 Active 010521948 Problem Gastroesophageal reflux disease with esophagitis K 21.0 Active 594251867 Problem Colon polyp K63.5 Active 52659466 Problem Rhinitis, unspecified type J31.0 Act michael 67861063 Problem Primary osteoarthritis, 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 Active 554041961 Problem Essential hypertension I10 Active 78707966 Problem Stage 3 chronic kidney disease N18.3 Active 213500134 Problem Memory loss R41.3 Active 03887783 Problem Primary insomnia F51.01 Active 397 2004 Problem Nocturnal hypoxia G47.34 Active 38 7882062 Problem Hyperlipidemia, unspecified hyperlipidemia E78.5 Active 39839851 Problem Gastroesophageal reflux disease without esophagitis K21.9 Active 295439218 Problem Anxiety F41.9 Active 06735897 Problem Other chronic gastritis without hemorrhage K29.50 Active 9031301 ALLERGIES No Information ENCOUNTERS Encounter Location Date Diagnosis [place] [address] [facility] [id number] [address] [place] [id number] December, [place] [address] [place] [id number] [address] [place] [phone] Oct, [place] [id number] [facility] [id number] [address] [place] [id number] Oct, CN palsy, left eye H49.22 ; Primary insomnia F51.01 ; Pulsatile tinnitus of left ear H93.A2 and Seborrheic keratosis L82.1 [place] [address] [facility] [id number] [address] [place] [address] Aug, CN palsy, left eye H49.22 ; Essential hypertension I10 ; Arthralgia, unspecified joint M25.50 and Primary insomnia F51.01 [facility] [address] [place] [id number] [address] [place] [phone] Jul, Cranial nerve palsy G52.9 [facility] [address] [place] [id number] [address] [place] [phone] Jul, Cranial nerve palsy G52.9 ; Stage 3 chronic kidney disease N18.3 ; Family history of embolic stroke Z82.3 and Numbness of left hand R20.0 [facility] [address] [place] [id number] [address] [place] [phone] Jun, Anxiety F41.9 and Essential hypertension I10 [facility] [address] [place] [id number] [place] [address] Jun, [facility] [address] [place] [id number] [place] [address] Jun, Essential hypertension I10 [facility] [address] [place] [id number] [address] [place] [phone] May, [facility] [address] [place] [id number] [address] [place] [phone] May, Herpes zoster without compli cation B02.9 and Stage 3 chronic kidney disease N18.3 [facility] [address] [place] [id number] [address] [place] [address] Mar, Essential hypertension I10 [facility] [address] [place] [id number] [address] [place] [phone] Feb, [facility] [address] [place] [id number] [address] [place] [phone] Feb, [facility] [address] [place] [id number] [address] [place] [phone] Feb, Essential hypertension I10 a nd Acute midline low back pain without sciatica M54.5 [facility] [address] [facility] [id number] [address] [place] [address] December, Insect bite (nonvenomous) of lower back and pelvis, initial encounter S30.860A and Bitten or stung by nonvenomous insect and other nonvenomous arthropods, initial encounter W57.XXXA [place] [address] [address] 09 Nov, 2017 [address] [address] Nov, [place] [address] [address] 14 Oct, 2017 Hypoxemia R09.02 and Fatigue , unspecified type R53.[address] [address] 12 Sep, 2017 Other chronic gastritis with out hemorrhage K29.50 ; Gastroesophageal reflux disease without esophagitis K21.9 ; Hyperlipidemia, unspecified hyperlipidemia E78.5 and Arthralgia, unspecified joint M25.50 [place] [address] [address] Aug, Hypertriglyceridemia E78.[address] [address] 02 May, 2017 Anxiety F41.[address] [address] Apr, Hyperlipidemia, unspecified hyperlipidemia E78.5 ; Gastroesophageal reflux disease without esophagitis K21.9 ; Forgetfulness R68.89 ; Essential hypertension I10 and Anxiety F41.9 [place] [address] [address] 14 Apr, 2017 Hypertriglyceridemia E78.[address] [address] Mar, Medicare annual wellness vis it, subsequent Z00.00 ; Hyperlipidemia, unspecified hyperlipidemia E78.5 and Essential hypertension I10 [address] [address] Mar, Forgetfulness R68.89 ; Fatig ue, unspecified type R53.83 and Essential hypertension I10 [place] [address] [address] Mar, Primary osteoarthritis, 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 and Strain of left trapezius muscle, initial encounter S46.812A [place] [address] [place] [address] Feb, Left wrist pain M25.532 [place] [address] [address] Feb, Left wrist pain M25.532 [place] [address] [address] December, Hypertriglyceridemia E78.1 ; Encounter for immunization Z23 ; Forgetfulness R68.89 and Fatigue, unspecified type R53.83 [place] [address] [address] Jun, Forgetfulness R68.89 and Rhi nitis, unspecified type J31.0 [place] [address] [address] May, [place] [address] [address] May, Hypoxemia R09.02 ; Memory lo ss R41.3 ; Arthralgia, unspecified joint M25.50 and Rhinitis, unspecified type J31.0 [place] [address] [place] [id number] [address] [place] [address] Mar, Vertigo R42 ; Orthostatic hy potension I95.1 and Chronic gastritis without bleeding, unspecified gastritis type K29.50 [place] [address] [place] [id number] [address] [place] [address] Feb, [place] [address] [place] [id number] [address] [place] [address] Feb, Forgetfulness R68.89 [place] [address] [address] Jan, [address] [address] Jan, Gastroesophageal reflux dise ase without esophagitis K21.9 ; Fatigue, unspecified type R53.83 ; Weakness R53.1 ; Forgetfulness R68.89 ; Hyperlipidemia, unspecified hyperlipidemia E78.5 and Hearing abnormally acute, unspecified laterality H93.[address] [address] Oct, [address] [address] Aug, Upper respiratory tract infe ction, unspecified type J06.[address] [address] Aug, [address] [address] Jun, Acute idiopathic gout, unspe cified site M10.00 ; Encounter for immunization Z23 ; Hyperlipidemia, unspecified hyperlipidemia E78.5 ; Gastroesophageal reflux disease without esophagitis K21.9 and Fatigue, unspecified type R53.[address] [address] Jan, Esophageal reflux 530.81 and Irritable bowel syndrome 564.[address] [address] Jan, [address] [address] Jan, Gastritis 535.50 ; Hx of col onic polyp V12.72 and Positional vertigo 386.[address] [address] Jan, [address] [place] [address] Jan, Dizziness 780.4 and Nausea & vomiting 787.01 [facility] [place] [address] [id number] [address] [place] [address], [place] [address] Nov, [facility] [place] [address] [id number] [address] [place] [phone] Nov, [facility] [address] [id number] [address] [place] [id number] 14 Nov, 2014 [facility] [address] [id number] [address] [place] [phone] Nov, [facility] [address] [id number] [address] [place] [address], [place] [address] 16 Oct, 2014 [facility] [address] [id number] [address] [place] [phone] Oct, [facility] [address] [id number] [address] [place] [address] Oct, [facility] [address] [id number] [address] [place] [phone] Aug, [facility] [address] [id number] [address] [place] [phone] Aug, [facility] [place] [address] [id number] [address] [place] [phone] Aug, [facility] [address] [id number] [address] [place] [address] Jul, [facility] [address] [id number] [address] [place] [phone] Jul, [facility] [address] [id number] [address] [place] [phone] Jul, [facility] [place] [address] [id number] [address] [place] [phone] Jul, [facility] [place] [address] [id number] [address] [place] [phone] Jul, [facility] [address] [id number] [address] [place] [address], [place] [address] Jul, [facility] [place] [facility] [address] [id number] [address] [place] [address], [place] [address] Jul, [facility] [address] [id number] [address] [place] [address], [place] [address] Jul, [facility] [place] [facility] [address] [id number] [address] [place] [address], [place] [address] Jul, [facility] [address] [id number] [address] [place] [address], [place] [address] Jul, [facility] [place] [facility] [address] [id number] [address] [place] [address], [place] [address] Jul, [facility] [address] [id number] [address] [place] [address], [place] [address] Jun, [facility] [place] [facility] [address] [id number] [address] [place] [address], [place] [address] Jun, [facility] [place] [facility] [address] [id number] [address] [place] [address], [place] [address] Jun, [facility] [place] [facility] [address] [id number] [address] [place] [address], [place] [address] Jun, [facility] [place] [facility] [address] [id number] [address] [place] [address], [place] [address] 17 Apr, 2014 [facility] [place] [facility] [address] [id number] [address] [place] [address], [place] [address] 17 Apr, 2014 [facility] [place] [facility] [address] [id number] [address] [place] [address], [place] [address] 17 Apr, 2014 [facility] [place] [facility] [address] [id number] [address] [place] [address], [place] [address] Apr, [facility] [place] [facility] [address] [id number] [address] [place] [address], [place] [address] Feb, [facility] [place] [facility] [address] [id number] [facility] [address] Feb, [facility] [address] [id number] [address] [place] [address], [place] [address] Feb, [facility] [address] [id number] [address] [place] [address], [place] [address] Feb, [facility] [address] [id number] [address] [place] [address], [place] [address] Jan, [facility] [address] [id number] [address] [place] [address], [place] [address] Jan, [facility] [address] [id number] [address] [place] [address], [place] [address] Jan, [facility] [address] [id number] [address] [place] [address], [place] [address] Jan, [facility] [address] [id number] [address] [place] [address], [place] [address] December, [facility] [address] [id number] [address] [place] [address], [place] [address] December, [facility] [address] [id number] [address] [place] [address], [place] [address] December, [facility] [address] [id number] [address] [place] [address], [place] [address] December, [facility] [address] [id number] [address] [place] [address], [place] [address] December, [facility] [address] [id number] [address] [place] [address], [place] [address] December, [facility] [address] [id number] [address] [place] [address], [place] [address] Oct, [facility] [address] [id number] [address] [place] [address], [place] [address] Oct, [facility] [address] [id number] [address] [place] [address], [place] [address] Sep, [facility] [address] [id number] [address] [place] [address], [place] [address] Sep, [facility] [address] [id number] [address] [place] [address], [place] [address] Aug, [facility] [address] [id number] [address] [place] [address], [place] [address] Aug, [facility] [address] [id number] [address] [place] [address], [place] [address] Jul, [facility] [address] [id number] [address] [place] [address], [place] [address] Jul, [facility] [address] [id number] [address] [place] [address], [place] [address] May, [facility] [address] [id number] [address] [place] [address], [place] [address] May, [facility] [address] [id number] [address] [place] [address], [place] [address] May, [facility] [address] [id number] [address] [place] [address], [place] [address] Apr, [facility] [address] [id number] [address] [place] [address], [place] [address] Feb, [facility] [address] [id number] [address] [place] [address], [place] [address] Feb, [facility] [address] [id number] [address] [place] [address], [place] [address] Feb, [facility] [address] [id number] [address] [place] [address], [place] [address] Feb, [facility] [address] [id number] [address] [place] [address], [place] [address] Jan, [facility] [place] [facility] [address] [id number] [address] [place] [address], [place] [address] Jan, [facility] [address] [id number] [address] [place] [address], [place] [address] December, [facility] [address] [id number] [address] [place] [address], [place] [address] 16 Nov, 2012 [facility] [address] [id number] [address] [place] [address], [place] [address] Nov, [facility] [address] [id number] [address] [place] [address], [place] [address] Oct, [facility] [address] [id number] [address] [place] [address], [place] [address] Oct, [facility] [address] [id number] [address] [place] [address], [place] [address] Oct, [facility] [address] [id number] [address] [place] [address], [place] [address] Aug, [facility] [address] [id number] [address] [place] [address], [place] [address] Aug, [facility] [address] [id number] [address] [place] [address], [place] [address] Jul, [facility] [address] [id number] [address] [place] [address], [place] [address] Jul, [facility] [address] [id number] [address] [place] [address], [place] [address] Jul, [facility] [address] [id number] [address] [place] [address], [place] [address] Jul, [facility] [address] [id number] [address] [place] [address], [place] [address] Jun, [facility] [address] [id number] [address] [place] [address], [place] [address] Jun, [facility] [address] [id number] [address] [place] [address], [place] [address] May, [facility] [address] [id number] [address] [place] [address], [place] [address] Mar, [facility] [place] [facility] [address] [id number] [address] [place] [address], [place] [address] Mar, [facility] [address] [id number] [address] [place] [address], [place] [address] Jan, [facility] [address] [id number] [address] [place] [address], [place] [address] Jan, [facility] [address] [id number] [address] [place] [address], [place] [address] December, [facility] [address] [id number] [address] [place] [address], [place] [address] December, [facility] [address] [id number] [address] [place] [address], [place] [address] December, [facility] [address] [id number] [address] [place] [address], [place] [address] December, [facility] [address] [id number] [address] [place] [address], [place] [address] Sep, [facility] [address] [id number] [address] [place] [address], [place] [address] Sep, [facility] [address] [id number] [address] [place] [address], [place] [address] Jun, [facility] [address] [id number] [address] [place] [address], [place] [address] Jun, [facility] [address] [id number] [address] [place] [address], [place] [address] 18 May, 2011 [facility] [address] [id number] [address] [place] [address], [place] [address] Feb, [facility] [address] [id number] [address] [place] [address], [place] [address] Mar, [facility] [address] [id number] [address] [place] [address], [place] [address] Nov, [facility] [address] [id number] [address] [place] [address] Sep, [facility] [address] [facility] [id number] [address] [place] [address] Jun, [facility] [address] [facility] [id number] [address] [place] [address] Jun, [facility] [address] [facility] [id number] [address] [place] [address] May, [facility] [address] [facility] [id number] [address] [place] [address] Mar, [facility] [address] [facility] [id number] [address] [place] [address] December, IMMUNIZATIONS No Known Immunizations SOCIAL HISTORY Never Assessed REASON FOR VISIT [place] [place] C[place] VITAL SIGNS MEDICATIONS Unknown [...]
--- OUTSIDE RECORDS SUMMARY | 2020-02-28 02:38 | XMS REPORT ---
Author Author Lisy PIERRE Organization [facility] [place] Address [address] [place] [address] Care Team Providers Care Car Customizer Name Role Phone ROSEANN PIERRE Unavailable PROBLEMS Type Condition ICD9-CM Code VKO13-GS Code Onset Dates Condition S tatus SNOMED Code Problem Nocturnal hypoxia G47.34 Active 38 7561887 Problem Rhinitis, unspecified type J31.0 Act michael 74442198 Problem Memory loss R41.3 Active 37342229 Problem Hypertriglyceridemia E78.1 Active 963425337 Problem Colon polyp K63.5 Active 50058132 Problem Gastroesophageal reflux disease with esophagitis K 21.0 Active 393560030 Problem Other chronic gastritis without hemorrhage K29.50 Active 6288121 Problem Anxiety F41.9 Active 96714589 Problem Essential hypertension I10 Active 40943999 Problem Primary osteoarthritis, 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 Active 610483555 Problem Gastroesophageal reflux disease without esophagitis K21.9 Active 768746405 Problem Hyperlipidemia, unspecified hyperlipidemia E78.5 Active 64954526 ALLERGIES No Information ENCOUNTERS Encounter Location Date Diagnosis [facility] [place] [id number] [place] [address] Mar, Essential hypertension I10 [facility] [place] [address] [facility] [id number] [address] [place] [address] Feb, [facility] [place] [address] [place] [id number] [address] [place] [address] Feb, [facility] [place] [address] [place] [id number] [address] [place] [address] Feb, Essential hypertension I10 a nd Acute midline low back pain without sciatica M54.5 [facility] [address] [facility] [id number] [address] [place] [address] December, Insect bite (nonvenomous) of lower back and pelvis, initial encounter S30.860A and Bitten or stung by nonvenomous insect and other nonvenomous arthropods, initial encounter W57.XXXA [place] [address] [address] 09 Nov, 2017 Pleurisy R09.[address] [address] Nov, [place] [address] [address] 14 Oct, 2017 Hypoxemia R09.02 and Fatigue , unspecified type R53.[address] [address] 12 Sep, 2017 Other chronic gastritis with out hemorrhage K29.50 ; Gastroesophageal reflux disease without esophagitis K21.9 ; Hyperlipidemia, unspecified hyperlipidemia E78.5 and Arthralgia, unspecified joint M25.50 [place] [address] [address] Aug, Hypertriglyceridemia E78.[address] [address] 02 May, 2017 Anxiety F41.[address] [address] Apr, Hyperlipidemia, unspecified hyperlipidemia E78.5 ; Gastroesophageal reflux disease without esophagitis K21.9 ; Forgetfulness R68.89 ; Essential hypertension I10 and Anxiety F41.9 [place] [address] [address] 14 Apr, 2017 Hypertriglyceridemia E78.[address] [address] Mar, Medicare annual wellness vis it, subsequent Z00.00 ; Hyperlipidemia, unspecified hyperlipidemia E78.5 and Essential hypertension I10 [address] [address] Mar, Forgetfulness R68.89 ; Fatig ue, unspecified type R53.83 and Essential hypertension I10 [place] [address] [place] [id number] [address] [place] [address] Mar, Primary osteoarthritis, 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 and Strain of left trapezius muscle, initial encounter S46.812A [place] [address] [address] Feb, Left wrist pain M25.532 [place] [address] [address] Feb, Left wrist pain M25.532 [place] [address] [address] December, Hypertriglyceridemia E78.1 ; Encounter for immunization Z23 ; Forgetfulness R68.89 and Fatigue, unspecified type R53.83 [place] [address] [address] Jun, Forgetfulness R68.89 and Rhi nitis, unspecified type J31.0 [place] [address] [address] May, [place] [address] [address] May, Hypoxemia R09.02 ; Memory lo ss R41.3 ; Arthralgia, unspecified joint M25.50 and Rhinitis, unspecified type J31.0 [place] [address] [place] [id number] [place] [address] Mar, Vertigo R42 ; Orthostatic hy potension I95.1 and Chronic gastritis without bleeding, unspecified gastritis type K29.50 [place] [address] [place] [id number] [place] [address] Feb, [place] [address] [place] [id number] [address] [place] [address] Feb, Forgetfulness R68.[address] [address] Jan, [address] [address] Jan, Gastroesophageal reflux dise ase without esophagitis K21.9 ; Fatigue, unspecified type R53.83 ; Weakness R53.1 ; Forgetfulness R68.89 ; Hyperlipidemia, unspecified hyperlipidemia E78.5 and Hearing abnormally acute, unspecified laterality H93.[address] [address] Oct, [address] [address] Aug, Upper respiratory tract infe ction, unspecified type J06.[address] [address] Aug, [address] [address] Jun, Acute idiopathic gout, unspe cified site M10.00 ; Encounter for immunization Z23 ; Hyperlipidemia, unspecified hyperlipidemia E78.5 ; Gastroesophageal reflux disease without esophagitis K21.9 and Fatigue, unspecified type R53.83 [place] [id number] [place] [address] Jan, Esophageal reflux 530.81 and Irritable bowel syndrome 564.[address] [address] Jan, [address] [address] Jan, Gastritis 535.50 ; Hx of col onic polyp V12.72 and Positional vertigo 386.[address] [address] Jan, [place] [id number] [place] [address] 04 Jan, 2015 Dizziness 780.4 and Nausea & vomiting 787.01 [facility] [address] [id number] [address] [place] [address] Nov, [facility] [address] [id number] [address] [place] [address] Nov, [facility] [address] [id number] [address] [place] [address] 14 Nov, 2014 [facility] [address] [id number] [address] [place] [address] Nov, [facility] [address] [id number] [address] [place] [address] 16 Oct, 2014 [facility] [address] [id number] [address] [place] [address] Oct, [facility] [address] [id number] [address] [place] [address] Oct, [facility] [address] [id number] [address] [place] [address] Aug, [facility] [address] [id number] [address] [place] [address] Aug, [facility] [address] [id number] [address] [place] [address] Aug, [facility] [address] [id number] [address] [place] [address] Jul, [facility] [address] [id number] [address] [place] [address] Jul, [facility] [address] [id number] [address] [place] [address] Jul, [facility] [address] [id number] [address] [place] [address] Jul, [facility] [address] [id number] [address] [place] [address] Jul, [facility] [address] [id number] [address] [place] [address], [place] [address] Jul, [facility] [address] [id number] [address] [place] [address], [place] [address] Jul, [facility] [address] [id number] [address] [place] [address], [place] [address] Jul, [facility] [address] [id number] [address] [place] [address], [place] [address] Jul, [facility] [address] [id number] [address] [place] [address], [place] [address] Jul, [facility] [address] [id number] [address] [place] [address], [place] [address] Jul, [facility] [address] [id number] [address] [place] [address], [place] [address] Jun, [facility] [address] [id number] [address] [place] [address], [place] [address] Jun, [facility] [address] [id number] [address] [place] [address], [place] [address] Jun, [facility] [address] [id number] [address] [place] [address], [place] [address] Jun, [facility] [address] [id number] [address] [place] [address], [place] [address] 17 Apr, 2014 [facility] [address] [id number] [address] [place] [address], [place] [address] 17 Apr, 2014 [facility] [address] [id number] [address] [place] [address], [place] [address] 17 Apr, 2014 [facility] [address] [id number] [address] [place] [address], [place] [address] 17 Apr, 2014 [facility] [address] [id number] [address] [place] [address], [place] [address] Feb, [facility] [address] [id number] [address] [address] Feb, [facility] [address] [id number] [address] [address] Feb, [facility] [address] [id number] [address] [address] Feb, [facility] [address] [id number] [address] [place] [address], [place] [address] Jan, [facility] [address] [id number] [address] [place] [address], [place] [address] Jan, [facility] [address] [id number] [address] [place] [address], [place] [address] Jan, [facility] [address] [id number] [address] [place] [address], [place] [address] Jan, [facility] [address] [id number] [address] [place] [address], [place] [address] December, [facility] [address] [id number] [address] [place] [address], [place] [address] December, [facility] [address] [id number] [address] [place] [address], [place] [address] December, [facility] [address] [id number] [address] [place] [address], [place] [address] December, [facility] [address] [id number] [address] [place] [address], [place] [address] December, [facility] [address] [id number] [address] [place] [address], [place] [address] December, [facility] [address] [id number] [address] [place] [address], [place] [address] Oct, [facility] [address] [id number] [address] [place] [address], [place] [address] Oct, [facility] [address] [id number] [address] [place] [address], [place] [address] Sep, [facility] [address] [id number] [address] [place] [address], [place] [address] Sep, [facility] [address] [id number] [address] [place] [address], [place] [address] Aug, [facility] [address] [id number] [address] [place] [address], [place] [address] Aug, [facility] [address] [id number] [address] [place] [address], [place] [address] Jul, [facility] [address] [id number] [address] [place] [address], [place] [address] Jul, [facility] [address] [id number] [address] [place] [address], [place] [address] May, [facility] [address] [id number] [address] [place] [address], [place] [address] May, [facility] [address] [id number] [address] [place] [address], [place] [address] May, [facility] [address] [id number] [address] [place] [address], [place] [address] Apr, [facility] [address] [id number] [address] [place] [address], [place] [address] Feb, [facility] [address] [id number] [address] [place] [address], [place] [address] Feb, [facility] [address] [id number] [address] [place] [address], [place] [address] Feb, [facility] [address] [id number] [address] [place] [address], [place] [address] Feb, [facility] [address] [id number] [address] [place] [address], [place] [address] Jan, [facility] [address] [id number] [address] [place] [address], [place] [address] Jan, [facility] [address] [id number] [address] [place] [address], [place] [address] December, [facility] [address] [id number] [address] [place] [address], [place] [address] 16 Nov, 2012 [facility] [address] [id number] [address] [place] [address], [place] [address] Nov, [facility] [address] [id number] [address] [place] [address], [place] [address] Oct, [facility] [address] [id number] [address] [place] [address], [place] [address] Oct, [facility] [address] [id number] [address] [place] [address], [place] [address] Oct, [facility] [address] [id number] [address] [place] [address], [place] [address] Aug, [facility] [address] [id number] [address] [place] [address], [place] [address] Aug, [facility] [address] [id number] [address] [place] [address], [place] [address] Jul, [facility] [address] [id number] [address] [place] [address], [place] [address] Jul, [facility] [address] [id number] [address] [place] [address], [place] [address] Jul, [facility] [address] [id number] [address] [place] [address], [place] [address] Jul, [facility] [address] [id number] [address] [place] [address], [place] [address] Jun, [facility] [address] [id number] [address] [place] [address], [place] [address] Jun, [facility] [address] [id number] [address] [place] [address], [place] [address] May, [facility] [address] [id number] [address] [place] [address], [place] [address] Mar, [facility] [address] [id number] [address] [place] [address], [place] [address] Mar, [facility] [address] [id number] [address] [place] [address], [place] [address] Jan, [facility] [address] [id number] [address] [place] [address], [place] [address] Jan, [facility] [address] [id number] [address] [place] [address], [place] [address] December, [facility] [address] [id number] [address] [place] [address], [place] [address] December, [facility] [address] [id number] [address] [place] [address], [place] [address] December, [facility] [address] [id number] [address] [place] [address], [place] [address] December, [facility] [address] [id number] [address] [place] [address], [place] [address] Sep, [facility] [address] [id number] [address] [place] [address], [place] [address] Sep, [facility] [address] [id number] [address] [place] [address], [place] [address] Jun, [facility] [address] [id number] [address] [place] [address], [place] [address] Jun, [facility] [address] [id number] [address] [place] [address], [place] [address] 18 May, 2011 [facility] [address] [id number] [address] [place] [address], [place] [address] Feb, [facility] [address] [id number] [address] [place] [address], [place] [address] Mar, [facility] [address] [id number] [address] [place] [address], [place] [address] Nov, [facility] [address] [id number] [address] [place] [address] 18 Sep, 2009 [facility] [place] [address] [facility] [id number] [address] [place] [address] Jun, [facility] [place] [address] [facility] [id number] [address] [place] [address] Jun, [facility] [place] [address] [facility] [id number] [address] [place] [address] May, [facility] [place] [address] [facility] [id number] [address] [place] [address] Mar, [facility] [place] [address] [facility] [id number] [address] [place] [address] December, IMMUNIZATIONS No Known Immunizations SOCIAL HISTORY Never Assessed REASON FOR VISIT Requests return call PLAN OF CARE VITAL SIGNS MEDICATIONS Unknown [...]
--- OUTSIDE RECORDS SUMMARY | 2020-02-28 02:38 | XMS REPORT ---
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 Active 350751322 Problem Rhinitis, unspecified type J31.0 Act michael 02394196 Problem Hypertriglyceridemia E78.1 Active 761408519 Problem Colon polyp K63.5 Active 52187076 Problem Gastroesophageal reflux disease with esophagitis K 21.0 Active 655586336 Problem Nocturnal hypoxia G47.34 Active 38 8543378 Problem Stage 3 chronic kidney disease N18.3 Active 910189018 Problem Other chronic gastritis without hemorrhage K29.50 Active 3120822 Problem Hyperlipidemia, unspecified hyperlipidemia E78.5 Active 54803227 Problem Essential hypertension I10 Active 88886666 Problem Anxiety F41.9 Active 10415212 Problem Gastroesophageal reflux disease without esophagitis K21.9 Active 670756858 ALLERGIES No Information ENCOUNTERS Encounter Location Date Diagnosis [facility] [address] [facility] [id number] [address] [place] [address] Jul, [facility] [address] [facility] [id number] [address] [place] [address] Jun, Essential hypertension I10 [facility] [address] [facility] [id number] [address] [place] [phone] May, [facility] [address] [facility] [id number] [address] [place] [address] May, Herpes zoster without compli cation B02.9 and Stage 3 chronic kidney disease N18.3 [facility] [address] [facility] [id number] [address] [place] [address] Mar, Essential hypertension I10 [facility] [address] [place] [id number] [address] [place] [address] Feb, [facility] [address] [address] Feb, [facility] [address] [address] Feb, Essential hypertension I10 a nd Acute midline low back pain without sciatica M54.5 [facility] [address] [place] [id number] [address] [place] [address] December, Insect bite (nonvenomous) of lower back and pelvis, initial encounter S30.860A and Bitten or stung by nonvenomous insect and other nonvenomous arthropods, initial encounter W57.XXXA [facility] [address] [address] Nov, Pleurisy R09.1 [place] [address] [address] Nov, [facility] [address] [address] Oct, Hypoxemia R09.02 and Fatigue , unspecified type R53.83 [place] [address] [address] Sep, Other chronic gastritis with out hemorrhage K29.50 ; Gastroesophageal reflux disease without esophagitis K21.9 ; Hyperlipidemia, unspecified hyperlipidemia E78.5 and Arthralgia, unspecified joint M25.50 [place] [address] [address] Aug, Hypertriglyceridemia E78.1 [place] [address] [place] [id number] [address] [place] [address] 02 May, 2017 Anxiety F41.9 [place] [address] [address] Apr, Hyperlipidemia, unspecified hyperlipidemia E78.5 ; Gastroesophageal reflux disease without esophagitis K21.9 ; Forgetfulness R68.89 ; Essential hypertension I10 and Anxiety F41.9 [place] [address] [facility] [id number] [address] [place] [address] 14 Apr, 2017 Hypertriglyceridemia E78.1 [place] [address] [facility] [id number] [address] [place] [address] Mar, Medicare annual wellness vis it, subsequent Z00.00 ; Hyperlipidemia, unspecified hyperlipidemia E78.5 and Essential hypertension I10 [place] [address] 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 [id number] [address] [place] [address] Feb, Left wrist pain M25.532 [place] [address] [facility] [id number] [address] [place] [address] Feb, Left wrist pain M25.532 [place] [address] [place] [id number] [address] [place] [address] December, Hypertriglyceridemia E78.1 ; Encounter for immunization Z23 ; Forgetfulness R68.89 and Fatigue, unspecified type R53.83 [place] [address] [facility] [id number] [address] [place] [address] Jun, Forgetfulness R68.89 and Rhi nitis, unspecified type J31.0 [place] [address] [facility] [id number] [address] [place] [address] May, [place] [address] [facility] [id number] [address] May, Hypoxemia R09.02 ; Memory lo ss R41.3 ; Arthralgia, unspecified joint M25.50 and Rhinitis, unspecified type J31.0 [place] [address] [address] Mar, Vertigo R42 ; Orthostatic hy potension I95.1 and Chronic gastritis without bleeding, unspecified gastritis type K29.50 [place] [address] [address] Feb, [address] [address] Feb, Forgetfulness R68.[address] [address] Jan, [address] [address] Jan, Gastroesophageal reflux dise ase without esophagitis K21.9 ; Fatigue, unspecified type R53.83 ; Weakness R53.1 ; Forgetfulness R68.89 ; Hyperlipidemia, unspecified hyperlipidemia E78.5 and Hearing abnormally acute, unspecified laterality H93.[address] [address] Oct, [address] [address] Aug, Upper respiratory tract infe ction, unspecified type J06.[address] [address] Aug, [address] [address] Jun, Acute idiopathic gout, unspe cified site M10.00 ; Encounter for immunization Z23 ; Hyperlipidemia, unspecified hyperlipidemia E78.5 ; Gastroesophageal reflux disease without esophagitis K21.9 and Fatigue, unspecified type R53.83 [place] [id number] [address] [place] [address] 17 Jan, 2015 Esophageal reflux 530.81 and Irritable bowel syndrome 564.1 [facility] [address] [facility] [id number] [address] [place] [address] 15 Jan, 2015 [facility] [address] [place] [id number] [address] [place] [address] 10 Jan, 2015 Gastritis 535.50 ; Hx of col onic polyp V12.72 and Positional vertigo 386.11 [facility] [address] [facility] [id number] [address] [place] [id number] 09 Jan, 2015 [facility] [address] [address] 04 Jan, 2015 Dizziness 780.4 and Nausea & vomiting 787.01 [facility] [address] [place] [id number] [address] [place] [address] Nov, [facility] [address] [place] [id number] [address] [place] [id number] 28 Nov, 2014 [facility] [address] [place] [id number] [address] [place] [id number] 14 Nov, 2014 [facility] [address] [place] [id number] [address] [place] [id number] 13 Nov, 2014 [facility] [address] [place] [id number] [address] [place] [id number] 16 Oct, 2014 [facility] [address] [place] [id number] [address] [place] [phone] Oct, [facility] [address] [facility] [id number] [address] [place] [id number] Oct, [facility] [address] [place] [id number] [address] [place] [phone] Aug, [facility] [address] [place] [id number] [address] [place] [phone] Aug, [facility] [address] [id number] [address] [place] [address], [place] [address] 08 Aug, 2014 [facility] [address] [id number] [address] [place] [address], [place] [address] Jul, [facility] [address] [id number] [address] [place] [address], [place] [address] Jul, [facility] [address] [id number] [address] [place] [address], [place] [address] Jul, [facility] [address] [id number] [address] [place] [address], [place] [address] Jul, [facility] [address] [id number] [address] [place] [address], [place] [address] Jul, [facility] [address] [id number] [address] [place] [address], [place] [address] Jul, [facility] [address] [id number] [address] [place] [address], [place] [address] Jul, [facility] [address] [id number] [address] [place] [address], [place] [address] Jul, [facility] [address] [id number] [address] [place] [address], [place] [address] Jul, [facility] [address] [id number] [address] [place] [address], [place] [address] Jul, [facility] [address] [id number] [address] [place] [address], [place] [address] Jul, [facility] [address] [id number] [address] [place] [address], [place] [address] Jun, [facility] [address] [id number] [address] [place] [address], [place] [address] Jun, [facility] [address] [id number] [address] [place] [address], [place] [address] Jun, [facility] [address] [id number] [address] [place] [address], [place] [address] Jun, [facility] [address] [id number] [address] [place] [address], [place] [address] Apr, [facility] [address] [id number] [address] [place] [address], [place] [address] Apr, [facility] [address] [id number] [address] [place] [address], [place] [address] Apr, [facility] [address] [id number] [address] [place] [address], [place] [address] Apr, [facility] [address] [id number] [address] [place] [address], [place] [address] Feb, [facility] [address] [id number] [address] [place] [address], [place] [address] Feb, [facility] [address] [id number] [address] [place] [address], [place] [address] Feb, [facility] [address] [id number] [address] [place] [address], [place] [address] Feb, [facility] [address] [id number] [address] [place] [address], [place] [address] Jan, [facility] [address] [id number] [address] [place] [address], [place] [address] Jan, [facility] [address] [id number] [address] [place] [address], [place] [address] Jan, [facility] [address] [id number] [address] [place] [address], [place] [address] Jan, [facility] [address] [id number] [address] [place] [address], [place] [address] December, [facility] [address] [id number] [address] [place] [address], [place] [address] December, [facility] [address] [id number] [address] [place] [address], [place] [address] December, [facility] [address] [id number] [address] [place] [address], [place] [address] December, [facility] [address] [id number] [address] [place] [address], [place] [address] December, [facility] [address] [id number] [address] [place] [address], [place] [address] December, [facility] [address] [id number] [address] [place] [address], [place] [address] Oct, [facility] [address] [id number] [address] [place] [address], [place] [address] Oct, [facility] [address] [id number] [address] [place] [address], [place] [address] Sep, [facility] [address] [id number] [address] [place] [address], [place] [address] Sep, [facility] [address] [id number] [address] [place] [address], [place] [address] Aug, [facility] [address] [id number] [address] [place] [address], [place] [address] Aug, [facility] [address] [id number] [address] [place] [address], [place] [address] Jul, [facility] [address] [id number] [address] [place] [address], [place] [address] Jul, [facility] [address] [id number] [address] [place] [address], [place] [address] May, [facility] [address] [id number] [address] [place] [address], [place] [address] May, [facility] [address] [id number] [address] [place] [address], [place] [address] May, [facility] [address] [id number] [address] [place] [address], [place] [address] Apr, [facility] [address] [id number] [address] [place] [address], [place] [address] Feb, [facility] [address] [id number] [address] [place] [address], [place] [address] 18 Feb, 2013 [facility] [address] [id number] [address] [place] [address], [place] [address] 17 Feb, 2013 [facility] [address] [id number] [address] [place] [address], [place] [address] 16 Feb, 2013 [facility] [address] [id number] [address] [place] [address], [place] [address] Jan, [facility] [address] [id number] [address] [place] [address], [place] [address] Jan, [facility] [address] [id number] [address] [place] [address], [place] [address] December, [facility] [address] [id number] [address] [place] [address], [place] [address] 16 Nov, 2012 [facility] [address] [id number] [address] [place] [address], [place] [address] Nov, [facility] [address] [id number] [address] [place] [address], [place] [address] 13 Oct, 2012 [facility] [address] [id number] [address] [place] [address], [place] [address] 06 Oct, 2012 [facility] [address] [id number] [address] [place] [address], [place] [address] 04 Oct, 2012 [facility] [address] [id number] [address] [place] [address], [place] [address] Aug, [facility] [address] [id number] [address] [place] [address], [place] [address] Aug, [facility] [address] [id number] [address] [place] [address], [place] [address] Jul, [facility] [address] [id number] [address] [place] [address], [place] [address] Jul, [facility] [address] [id number] [address] [place] [address], [place] [address] Jul, [facility] [address] [id number] [address] [place] [address], [place] [address] Jul, [facility] [address] [id number] [address] [place] [address], [place] [address] Jun, [facility] [address] [id number] [address] [place] [address], [place] [address] Jun, [facility] [address] [id number] [address] [place] [address], [place] [address] May, [facility] [address] [id number] [address] [place] [address], [place] [address] Mar, [facility] [address] [id number] [address] [place] [address], [place] [address] Mar, [facility] [address] [id number] [address] [place] [address], [place] [address] Jan, [facility] [address] [id number] [address] [place] [address], [place] [address] Jan, [facility] [address] [id number] [address] [place] [address], [place] [address] December, [facility] [address] [id number] [address] [place] [address], [place] [address] December, [facility] [address] [id number] [address] [place] [address], [place] [address] December, [facility] [address] [id number] [address] [place] [address], [place] [address] December, [facility] [address] [id number] [address] [place] [address], [place] [address] Sep, [facility] [address] [id number] [address] [place] [address], [place] [address] Sep, [facility] [address] [id number] [address] [place] [address], [place] [address] Jun, [facility] [address] [id number] [address] [place] [id number] 14 Jun, 2011 [facility] [address] [id number] [address] [place] [address] May, [facility] [address] [id number] [address] [place] [address] Feb, [facility] [address] [id number] [address] [place] [address] Mar, [facility] [address] [id number] [address] [place] [phone] Nov, [facility] [address] [id number] [address] [place] [address] Sep, [facility] [address] [id number] [address] [place] [address] Jun, [facility] [address] [id number] [address] [place] [address] Jun, [facility] [address] [id number] [address] [place] [address] May, [facility] [address] [id number] [address] [place] [address] Mar, [facility] [address] [id number] [address] [place] [id number] December, IMMUNIZATIONS No Known Immunizations SOCIAL HISTORY Never Assessed REASON FOR VISIT Blood pressure check- IM PLAN OF CARE VITAL SIGNS Height 64 in 2018-06-14 Blood pressure systolic 169 mmHg 2018-06-14 Blood pressure diastolic 85 mmHg 2018-06-14 MEDICATIONS Unknown Medications RESULTS No Results PROCEDURES [...]
--- OUTSIDE RECORDS SUMMARY | 2020-02-28 02:38 | XMS REPORT ---
Author Author Lisy PIERRE Organization 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 Active 985681810 Problem Rhinitis, unspecified type J31.0 Act michael 80879123 Problem Hypertriglyceridemia E78.1 Active 829077565 Problem Colon polyp K63.5 Active 09882277 Problem Gastroesophageal reflux disease with esophagitis K 21.0 Active 021614526 Problem Nocturnal hypoxia G47.34 Active 38 2167411 Problem Stage 3 chronic kidney disease N18.3 Active 065733577 Problem Other chronic gastritis without hemorrhage K29.50 Active 1299593 Problem Hyperlipidemia, unspecified hyperlipidemia E78.5 Active 50691221 Problem Essential hypertension I10 Active 13802812 Problem Anxiety F41.9 Active 39528098 Problem Gastroesophageal reflux disease without esophagitis K21.9 Active 055937458 ALLERGIES No Information ENCOUNTERS Encounter Location Date Diagnosis [facility] [address] [facility] [id number] [address] [place] [address] Aug, [facility] [address] [facility] [id number] [address] [place] [address] Jul, Cranial nerve palsy G52.9 [facility] [address] [facility] [id number] [address] [place] [address] Jul, Cranial nerve palsy G52.9 ; Stage 3 chronic kidney disease N18.3 ; Family history of embolic stroke Z82.3 and Numbness of left hand R20.0 [facility] [address] [facility] [id number] [address] [place] [address] Jun, Anxiety F41.9 [address] Essential hypertension I10 [facility] [address] [place] [id number] [address] [place] [address] Jun, [facility] [address] [address] Jun, Essential hypertension I10 [facility] [address] [address] May, [facility] [address] [address] May, Herpes zoster without compli cation B02.9 and Stage [address] chronic kidney disease [address]18.3 [facility] [address] [address] Mar, Essential hypertension I10 [facility] [address] [address] Feb, [facility] [address] [address] Feb, [facility] [address] [address] Feb, Essential hypertension I10 a nd Acute midline low back pain without sciatica M54.5 [facility] [address] [address] December, Insect bite (nonvenomous) of lower back and pelvis, initial encounter S30.860A and Bitten or stung by nonvenomous insect and other nonvenomous arthropods, initial encounter W57.XXXA [facility] [address] [place] [id number] [address] [place] [address] Nov, Pleurisy R09.1 [facility] [address] [address] Nov, [facility] [address] [address] Oct, Hypoxemia R09.02 and Fatigue , unspecified type R53.83 [place] [address] [place] [id number] [address] [place] [address] 12 Sep, 2017 Other chronic gastritis with out hemorrhage K29.50 ; Gastroesophageal reflux disease without esophagitis K21.9 ; Hyperlipidemia, unspecified hyperlipidemia E78.5 and Arthralgia, unspecified joint M25.50 [place] [address] [place] [id number] [address] [place] [address] Aug, Hypertriglyceridemia E78.1 [place] [address] [place] [id number] [place] [address] May, Anxiety F41.9 [place] [address] [address] Apr, Hyperlipidemia, unspecified hyperlipidemia E78.5 ; Gastroesophageal reflux disease without esophagitis K21.9 ; Forgetfulness R68.89 ; Essential hypertension I10 and Anxiety F41.9 [place] [address] [place] [id number] [address] [place] [address] Apr, Hypertriglyceridemia E78.1 [place] [address] [address] Mar, Medicare annual wellness vis it, subsequent Z00.00 ; Hyperlipidemia, unspecified hyperlipidemia E78.5 and Essential hypertension I10 [place] [address] [place] [id number] [address] [place] [address] Mar, Forgetfulness R68.89 ; Fatig ue, unspecified type R53.83 and Essential hypertension I10 [place] [address] [place] [id number] [address] [place] [address] Mar, Primary osteoarthritis, 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 and Strain of left trapezius muscle, initial encounter S46.812A [place] [address] [place] [id number] [address] [place] [address] Feb, Left wrist pain M25.532 [place] [address] [place] [id number] [address] [place] [address] Feb, Left wrist pain M25.532 [place] [address] [address] December, Hypertriglyceridemia E78.1 ; Encounter for immunization Z23 ; Forgetfulness R68.89 and Fatigue, unspecified type R53.83 [place] [address] [address] Jun, Forgetfulness R68.89 and Rhi nitis, unspecified type J31.0 [place] [address] [address] May, [place] [address] [address] May, Hypoxemia R09.02 ; Memory lo ss R41.3 ; Arthralgia, unspecified joint M25.50 and Rhinitis, unspecified type J31.0 [place] [address] [address] Mar, Vertigo R42 ; Orthostatic hy potension I95.1 and Chronic gastritis without bleeding, unspecified gastritis type K29.50 [place] [address] [address] Feb, [place] [address] [address] Feb, Forgetfulness R68.89 [place] [address] [address] Jan, [place] [address] [address] Jan, Gastroesophageal reflux dise ase without esophagitis K21.9 ; Fatigue, unspecified type R53.83 ; Weakness R53.1 ; Forgetfulness R68.89 ; Hyperlipidemia, unspecified hyperlipidemia E78.5 and Hearing abnormally acute, unspecified laterality H93.239 [place] [address] [address] 15 Oct, 2015 [place] [address] [address] 11 Aug, 2015 Upper respiratory tract infe ction, unspecified type J06.9 [place] [address] [address] 07 Aug, 2015 [place] [address] [address] Jun, Acute idiopathic gout, unspe cified site M10.00 ; Encounter for immunization Z23 ; Hyperlipidemia, unspecified hyperlipidemia E78.5 ; Gastroesophageal reflux disease without esophagitis K21.9 and Fatigue, unspecified type R53.83 [place] [address] [address] 17 Jan, 2015 Esophageal reflux 530.81 and Irritable bowel syndrome 564.[address] [address] 15 Jan, [address] [address] 10 Jan, 2015 Gastritis 535.50 ; Hx of col onic polyp V12.72 and Positional vertigo 386.11 [place] [address] [address] 09 Jan, 2015 [place] [address] [address] 04 Jan, 2015 Dizziness 780.4 and Nausea & vomiting 787.01 [place] [address] [address] Nov, [address] [address] Nov, [place] [address] [address] 14 Nov, 2014 [place] [address] [address] Nov, [facility] [address] [id number] [address] [place] [address], [place] [address] 16 Oct, 2014 [facility] [address] [id number] [address] [place] [address], [place] [address] Oct, [facility] [address] [id number] [address] [place] [address], [place] [address] Oct, [facility] [address] [id number] [address] [place] [address], [place] [address] Aug, [facility] [address] [id number] [address] [place] [address], [place] [address] Aug, [facility] [address] [id number] [address] [place] [address], [place] [address] Aug, [facility] [address] [id number] [address] [place] [address], [place] [address] Jul, [facility] [address] [id number] [address] [place] [address], [place] [address] Jul, [facility] [address] [id number] [address] [place] [address], [place] [address] Jul, [facility] [address] [id number] [address] [place] [address], [place] [address] Jul, [facility] [address] [id number] [address] [place] [address], [place] [address] Jul, [facility] [address] [id number] [address] [place] [address], [place] [address] Jul, [facility] [address] [id number] [address] [place] [address], [place] [address] Jul, [facility] [address] [id number] [address] [place] [address], [place] [address] 05 Jul, 2014 [facility] [address] [id number] [address] [place] [address], [place] [address] 05 Jul, 2014 [facility] [address] [id number] [address] [place] [address], [place] [address] Jul, [facility] [address] [id number] [address] [place] [address], [place] [address] Jul, [facility] [address] [id number] [address] [place] [address], [place] [address] Jun, [facility] [address] [id number] [address] [place] [address], [place] [address] Jun, [facility] [address] [id number] [address] [place] [address], [place] [address] Jun, [facility] [address] [id number] [address] [place] [address], [place] [address] Jun, [facility] [address] [id number] [address] [place] [address], [place] [address] 17 Apr, 2014 [facility] [address] [id number] [address] [place] [address], [place] [address] 17 Apr, 2014 [facility] [address] [id number] [address] [place] [address], [place] [address] 17 Apr, 2014 [facility] [address] [id number] [address] [place] [address], [place] [address] Apr, [facility] [address] [id number] [address] [place] [address], [place] [address] Feb, [facility] [address] [id number] [address] [place] [address], [place] [address] Feb, [facility] [address] [id number] [address] [place] [address], [place] [address] Feb, [facility] [address] [id number] [address] [place] [address], [place] [address] Feb, [facility] [address] [id number] [address] [place] [address], [place] [address] Jan, [facility] [address] [id number] [address] [place] [address], [place] [address] Jan, [facility] [address] [id number] [address] [place] [address], [place] [address] Jan, [facility] [address] [id number] [address] [place] [address], [place] [address] Jan, [facility] [address] [id number] [address] [place] [address], [place] [address] December, [facility] [address] [id number] [address] [place] [address], [place] [address] December, [facility] [address] [id number] [address] [place] [address], [place] [address] December, [facility] [address] [id number] [address] [place] [address], [place] [address] December, [facility] [address] [id number] [address] [place] [address], [place] [address] December, [facility] [address] [id number] [address] [place] [address], [place] [address] December, [facility] [address] [id number] [address] [place] [address], [place] [address] Oct, [facility] [address] [id number] [address] [place] [address], [place] [address] Oct, [facility] [address] [id number] [address] [place] [address], [place] [address] Sep, [facility] [address] [id number] [address] [place] [address], [place] [address] Sep, [facility] [address] [id number] [address] [place] [address], [place] [address] Aug, [facility] [address] [id number] [address] [place] [address], [place] [address] Aug, [facility] [address] [id number] [address] [place] [address], [place] [address] Jul, [facility] [address] [id number] [address] [place] [address], [place] [address] 17 Jul, 2013 [facility] [address] [id number] [address] [place] [address], [place] [address] May, [facility] [address] [id number] [address] [place] [address], [place] [address] May, [facility] [address] [id number] [address] [place] [address], [place] [address] May, [facility] [address] [id number] [address] [place] [address], [place] [address] Apr, [facility] [address] [id number] [address] [place] [address], [place] [address] Feb, [facility] [address] [id number] [address] [place] [address], [place] [address] Feb, [facility] [address] [id number] [address] [place] [address], [place] [address] Feb, [facility] [address] [id number] [address] [place] [address], [place] [address] Feb, [facility] [address] [id number] [address] [place] [address], [place] [address] Jan, [facility] [address] [id number] [address] [place] [address], [place] [address] Jan, [facility] [address] [id number] [address] [place] [address], [place] [address] December, [facility] [address] [id number] [address] [place] [address], [place] [address] 16 Nov, 2012 [facility] [address] [id number] [address] [place] [address], [place] [address] 04 Nov, 2012 [facility] [address] [id number] [address] [place] [address], [place] [address] Oct, [facility] [address] [id number] [address] [place] [address], [place] [address] 06 Oct, 2012 [facility] [address] [id number] [address] [place] [address], [place] [address] Oct, [facility] [address] [id number] [address] [place] [address], [place] [address] Aug, [facility] [address] [id number] [address] [place] [address], [place] [address] Aug, [facility] [address] [id number] [address] [place] [address], [place] [address] Jul, [facility] [address] [id number] [address] [place] [address], [place] [address] Jul, [facility] [address] [id number] [address] [place] [address], [place] [address] Jul, [facility] [address] [id number] [address] [place] [address], [place] [address] Jul, [facility] [address] [id number] [address] [place] [address], [place] [address] Jun, [facility] [address] [id number] [address] [place] [address], [place] [address] Jun, [facility] [address] [id number] [address] [place] [address], [place] [address] May, [facility] [address] [id number] [address] [place] [address], [place] [address] Mar, [facility] [address] [id number] [address] [place] [address], [place] [address] Mar, [facility] [address] [id number] [address] [place] [address], [place] [address] Jan, [facility] [address] [id number] [address] [place] [address], [place] [address] Jan, [facility] [address] [id number] [address] [place] [address], [place] [address] December, [facility] [address] [id number] [address] [place] [address], [place] [address] December, [facility] [address] [id number] [address] [place] [address], [place] [address] December, [facility] [address] [id number] [address] [place] [address], [place] [address] December, [facility] [address] [id number] [address] [place] [address], [place] [address] Sep, [facility] [address] [id number] [address] [place] [address], [place] [address] Sep, [facility] [address] [id number] [address] [place] [address], [place] [address] Jun, [facility] [address] [id number] [address] [place] [address], [place] [address] Jun, [facility] [address] [id number] [address] [place] [address], [place] [address] May, [facility] [address] [id number] [address] [place] [address], [place] [address] Feb, [facility] [address] [id number] [address] [place] [address], [place] [address] Mar, [facility] [address] [id number] [address] [place] [address], [place] [address] Nov, [facility] [address] [id number] [address] [place] [address], [place] [address] Sep, [facility] [address] [id number] [address] [place] [address], [place] [address] Jun, [facility] [address] [id number] [address] [place] [address], [place] [address] Jun, [facility] [address] [id number] [address] [place] [address], [place] [address] May, [facility] [address] [id number] [address] [place] [address], [place] [address] Mar, [facility] [address] [id number] [address] [place] [address] December, IMMUNIZATIONS No Known Immunizations SOCIAL HISTORY Never Assessed REASON FOR VISIT MRI order correction PLAN OF CARE Activity Details Pending Test MRI : Brain w/ and w/o Contr ast VITAL SIGNS MEDICATIONS Unknown Medications RESULTS No [...]
--- OUTSIDE RECORDS SUMMARY | 2020-02-28 02:38 | XMS REPORT ---
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 Active 955057038 Problem Rhinitis, unspecified type J31.0 Act michael [id number] Problem Hypertriglyceridemia E78.1 Active 835215867 Problem Colon polyp K63.5 Active 02881703 Problem Gastroesophageal reflux disease with esophagitis K 21.0 Active 445641148 Problem Nocturnal hypoxia G47.34 Active 38 5395403 Problem Stage 3 chronic kidney disease N18.3 Active 077582113 Problem Other chronic gastritis without hemorrhage K29.50 Active 2329250 Problem Hyperlipidemia, unspecified hyperlipidemia E78.5 Active 78761272 Problem Essential hypertension I10 Active 36292608 Problem Anxiety F41.9 Active 49554078 Problem Gastroesophageal reflux disease without esophagitis K21.9 Active [id number] ALLERGIES No Information ENCOUNTERS Encounter Location Date Diagnosis [facility] [address] [facility] [id number] [address] [place] [address] Jul, [facility] [address] [facility] [id number] [address] [place] [address] Jun, [facility] [address] [facility] [id number] [address] [place] [address] Jun, [facility] [address] [facility] [id number] [address] [place] [address] Jun, Essential hypertension I10 [facility] [address] [place] [id number] [address] [place] [address] 16 May, 2018 [facility] [address] [address] May, Herpes zoster without compli cation B02.9 and Stage 3 chronic kidney disease N18.3 [place] [address] [address] Mar, Essential hypertension I10 [place] [address] [address] Feb, [place] [address] [address] Feb, [place] [address] [address] Feb, Essential hypertension I10 a nd Acute midline low back pain without sciatica M54.5 [facility] [address] [address] December, Insect bite (nonvenomous) of lower back and pelvis, initial encounter S30.860A and Bitten or stung by nonvenomous insect and other nonvenomous arthropods, initial encounter W57.XXXA [place] [address] [address] Nov, Pleurisy R09.1 [place] [address] [address] Nov, [place] [address] [address] Oct, Hypoxemia R09.02 and Fatigue , unspecified type R53.83 [place] [address] [address] Sep, Other chronic gastritis with out hemorrhage K29.50 ; Gastroesophageal reflux disease without esophagitis K21.9 ; Hyperlipidemia, unspecified hyperlipidemia E78.5 and Arthralgia, unspecified joint M25.50 [place] [address] [address] Aug, Hypertriglyceridemia E78.1 [place] [address] [facility] [id number] [address] [place] [address] May, Anxiety F41.9 [place] [address] [facility] [id number] [address] [place] [address] Apr, Hyperlipidemia, unspecified hyperlipidemia E78.5 ; Gastroesophageal reflux disease without esophagitis K21.9 ; Forgetfulness R68.89 ; Essential hypertension I10 and Anxiety F41.9 [place] [address] [facility] [id number] [address] [place] [address] Apr, Hypertriglyceridemia E78.1 [place] [address] [facility] [id number] [address] [place] [phone] Mar, Medicare annual wellness vis it, subsequent Z00.00 ; Hyperlipidemia, unspecified hyperlipidemia E78.5 and Essential hypertension I10 [place] [address] [place] [id number] [address] [place] [address] Mar, Forgetfulness R68.89 ; Fatig ue, unspecified type R53.83 and Essential hypertension I10 [place] [address] 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 [id number] [address] [place] [address] December, Hypertriglyceridemia E78.1 ; Encounter for immunization Z23 ; Forgetfulness R68.89 and Fatigue, unspecified type R53.83 [place] [address] [facility] [id number] [address] [place] [address] Jun, Forgetfulness R68.89 and Rhi nitis, unspecified type J31.0 [place] [address] [address] May, [place] [address] [address] May, Hypoxemia R09.02 ; Memory lo ss R41.3 ; Arthralgia, unspecified joint M25.50 and Rhinitis, unspecified type J31.0 [place] [address] [address] Mar, Vertigo R42 ; Orthostatic hy potension I95.1 and Chronic gastritis without bleeding, unspecified gastritis type K29.50 [place] [address] [address] Feb, [place] [address] [address] Feb, Forgetfulness R68.89 [place] [address] [address] Jan, [address] [address] Jan, Gastroesophageal reflux dise ase without esophagitis K21.9 ; Fatigue, unspecified type R53.83 ; Weakness R53.1 ; Forgetfulness R68.89 ; Hyperlipidemia, unspecified hyperlipidemia E78.5 and Hearing abnormally acute, unspecified laterality H93.239 [place] [address] [address] Oct, [place] [address] [address] Aug, Upper respiratory tract infe ction, unspecified type J06.9 [place] [address] [place] [id number] [place] [address] Aug, [place] [address] [address] Jun, Acute idiopathic gout, unspe cified site M10.00 ; Encounter for immunization Z23 ; Hyperlipidemia, unspecified hyperlipidemia E78.5 ; Gastroesophageal reflux disease without esophagitis K21.9 and Fatigue, unspecified type R53.83 [facility] [address] [address] 17 Jan, 2015 Esophageal reflux 530.81 and Irritable bowel syndrome 564.1 [place] [address] [address] 15 Jan, 2015 [place] [address] [address] 10 Jan, 2015 Gastritis 535.50 ; Hx of col onic polyp V12.72 and Positional vertigo 386.11 [place] [address] [address] Jan, [place] [address] [address] Jan, Dizziness 780.4 and Nausea & vomiting 787.01 [place] [address] [address] Nov, [place] [address] [address] Nov, [place] [address] [address] Nov, [facility] [address] [address] 13 Nov, 2014 [facility] [address] [address] 16 Oct, 2014 [place] [address] [address] Oct, [facility] [address] [address] Oct, [facility] [address] [id number] [address] [place] [address], [place] [address] Aug, [facility] [address] [id number] [address] [place] [address], [place] [address] Aug, [facility] [address] [id number] [address] [place] [address], [place] [address] Aug, [facility] [address] [id number] [address] [place] [address], [place] [address] Jul, [facility] [address] [id number] [address] [place] [address], [place] [address] Jul, [facility] [address] [id number] [address] [place] [address], [place] [address] Jul, [facility] [address] [id number] [address] [place] [address], [place] [address] Jul, [facility] [address] [id number] [address] [place] [address], [place] [address] Jul, [facility] [address] [id number] [address] [place] [address], [place] [address] Jul, [facility] [address] [id number] [address] [place] [address], [place] [address] Jul, [facility] [address] [id number] [address] [place] [address], [place] [address] Jul, [facility] [address] [id number] [address] [place] [address], [place] [address] Jul, [facility] [address] [id number] [address] [place] [address], [place] [address] Jul, [facility] [address] [id number] [address] [place] [address], [place] [address] Jul, [facility] [address] [id number] [address] [place] [address], [place] [address] Jun, [facility] [address] [id number] [address] [place] [address], [place] [address] Jun, [facility] [address] [id number] [address] [place] [address], [place] [address] Jun, [facility] [address] [id number] [address] [place] [address], [place] [address] Jun, [facility] [address] [id number] [address] [place] [address], [place] [address] 17 Apr, 2014 [facility] [address] [id number] [address] [place] [address], [place] [address] Apr, [facility] [address] [id number] [address] [place] [address], [place] [address] Apr, [facility] [address] [id number] [address] [place] [address], [place] [address] Apr, [facility] [address] [id number] [address] [place] [address], [place] [address] Feb, [facility] [address] [id number] [address] [place] [address], [place] [address] Feb, [facility] [address] [id number] [address] [place] [address], [place] [address] Feb, [facility] [address] [id number] [address] [place] [address], [place] [address] Feb, [facility] [address] [id number] [address] [place] [address], [place] [address] Jan, [facility] [address] [id number] [address] [place] [address], [place] [address] Jan, [facility] [address] [id number] [address] [place] [address], [place] [address] Jan, [facility] [address] [id number] [address] [place] [address], [place] [address] Jan, [facility] [address] [id number] [address] [place] [address], [place] [address] December, [facility] [address] [id number] [address] [place] [address] December, [facility] [address] [id number] [address] [place] [address], [place] [address] December, [facility] [address] [id number] [address] [place] [address], [place] [address] December, [facility] [address] [id number] [address] [place] [address], [place] [address] December, [facility] [address] [id number] [address] [place] [address], [place] [address] December, [facility] [address] [id number] [address] [place] [address], [place] [address] Oct, [facility] [address] [id number] [address] [place] [address], [place] [address] Oct, [facility] [address] [id number] [address] [place] [address], [place] [address] Sep, [facility] [address] [id number] [address] [place] [address], [place] [address] Sep, [facility] [address] [id number] [address] [place] [address], [place] [address] Aug, [facility] [address] [id number] [address] [place] [address], [place] [address] Aug, [facility] [address] [id number] [address] [place] [address], [place] [address] Jul, [facility] [address] [id number] [address] [place] [address], [place] [address] Jul, [facility] [address] [id number] [address] [place] [address], [place] [address] May, [facility] [address] [id number] [address] [place] [address], [place] [address] May, [facility] [address] [id number] [address] [place] [address], [place] [address] May, [facility] [address] [id number] [address] [place] [address], [place] [address] 17 Apr, 2013 [facility] [address] [id number] [address] [place] [address], [place] [address] Feb, [facility] [address] [id number] [address] [place] [address], [place] [id number] Feb, [facility] [address] [id number] [address] [place] [address], [place] [address] Feb, [facility] [address] [id number] [address] [place] [address], [place] [address] Feb, [facility] [address] [id number] [address] [place] [address], [place] [address] Jan, [facility] [address] [id number] [address] [place] [address], [place] [address] Jan, [facility] [address] [id number] [address] [place] [address], [place] [address] December, [facility] [address] [id number] [address] [place] [address], [place] [address] Nov, [facility] [address] [id number] [address] [place] [address], [place] [address] Nov, [facility] [address] [id number] [address] [place] [address], [place] [address] Oct, [facility] [address] [id number] [address] [place] [address], [place] [address] Oct, [facility] [address] [id number] [address] [place] [address], [place] [address] Oct, [facility] [address] [id number] [address] [place] [address], [place] [address] Aug, [facility] [address] [id number] [address] [place] [address], [place] [address] Aug, [facility] [address] [id number] [address] [place] [address], [place] [address] Jul, [facility] [address] [id number] [address] [place] [address], [place] [address] Jul, [facility] [address] [id number] [address] [place] [address], [place] [address] Jul, [facility] [address] [id number] [address] [place] [address], [place] [address] Jul, [facility] [address] [id number] [address] [place] [address], [place] [address] Jun, [facility] [address] [id number] [address] [place] [address], [place] [address] Jun, [facility] [address] [id number] [address] [place] [address], [place] [address] May, [facility] [address] [id number] [address] [place] [address], [place] [address] Mar, [facility] [address] [id number] [address] [place] [address], [place] [address] Mar, [facility] [address] [id number] [address] [place] [address], [place] [address] Jan, [facility] [address] [id number] [address] [place] [address], [place] [address] Jan, [facility] [address] [id number] [address] [place] [address], [place] [address] December, [facility] [address] [id number] [address] [place] [address], [place] [address] December, [facility] [address] [id number] [address] [place] [address], [place] [address] December, [facility] [address] [id number] [address] [place] [address], [place] [id number] December, [facility] [address] [id number] [address] [place] [address], [place] [address] Sep, [facility] [address] [id number] [address] [place] [address] 13 Sep, 2011 [facility] [address] [id number] [address] [place] [address] 14 Jun, 2011 [facility] [address] [id number] [address] [place] [address] 14 Jun, 2011 [facility] [address] [id number] [address] [place] [id number] 18 May, 2011 [facility] [address] [id number] [address] [place] [address] Feb, [facility] [address] [id number] [address] [place] [address] Mar, [facility] [address] [id number] [address] [place] [address] Nov, [facility] [address] [id number] [address] [place] [id number] 18 Sep, 2009 [facility] [address] [id number] [address] [place] [address] Jun, [facility] [address] [id number] [address] [place] [address] Jun, [facility] [address] [id number] [address] [place] [address] May, [facility] [address] [id number] [address] [place] [address] Mar, [facility] [address] [id number] [address] [place] [address] December, IMMUNIZATIONS No Known Immunizations SOCIAL HISTORY [...]
--- OUTSIDE RECORDS SUMMARY | 2020-02-28 02:38 | XMS REPORT ---
Author Author Lisy PIERRE Organization [facility] Address [address] [place] [address] Care Team Providers Care Vmware Administrator Name Role Phone ROSEANN PIERRE Unavailable PROBLEMS Type Condition ICD9-CM Code GOS44-VW Code Onset Dates Condition S tatus SNOMED Code Problem Nocturnal hypoxia G47.34 Active 38 0753270 Problem Rhinitis, unspecified type J31.0 Act michael 83176918 Problem Memory loss R41.3 Active 77906471 Problem Hypertriglyceridemia E78.1 Active 161596665 Problem Colon polyp K63.5 Active 80770548 Problem Gastroesophageal reflux disease with esophagitis K 21.0 Active 704115055 Problem Other chronic gastritis without hemorrhage K29.50 Active 6483484 Problem Anxiety F41.9 Active 27226533 Problem Essential hypertension I10 Active 87505677 Problem Primary osteoarthritis, 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 Active 154849891 Problem Gastroesophageal reflux disease without esophagitis K21.9 Active 820706696 Problem Hyperlipidemia, unspecified hyperlipidemia E78.5 Active [id number] ALLERGIES No Information ENCOUNTERS Encounter Location Date Diagnosis [facility] [id number] [place] [address] Mar, Essential hypertension I10 [facility] [address] [facility] [id number] [address] [place] [address] Feb, [facility] [address] [place] [id number] [address] [place] [address] Feb, [facility] [address] [place] [id number] [address] [place] [address] Feb, Essential hypertension I10 a nd Acute midline low back pain without sciatica M54.5 [facility] [address] [facility] [id number] [address] [place] [address] December, Insect bite (nonvenomous) of lower back and pelvis, initial encounter S30.860A and Bitten or stung by nonvenomous insect and other nonvenomous arthropods, initial encounter W57.XXXA [place] [address] [address] 09 Nov, 2017 [address] [address] Nov, [place] [address] [address] 14 Oct, 2017 Hypoxemia R09.02 and Fatigue , unspecified type R53.[address] [address] 12 Sep, 2017 Other chronic gastritis with out hemorrhage K29.50 ; Gastroesophageal reflux disease without esophagitis K21.9 ; Hyperlipidemia, unspecified hyperlipidemia E78.5 and Arthralgia, unspecified joint M25.50 [place] [address] [address] Aug, Hypertriglyceridemia E78.[address] [address] 02 May, 2017 Anxiety F41.[address] [address] Apr, Hyperlipidemia, unspecified hyperlipidemia E78.5 ; Gastroesophageal reflux disease without esophagitis K21.9 ; Forgetfulness R68.89 ; Essential hypertension I10 and Anxiety F41.9 [place] [address] [address] 14 Apr, 2017 Hypertriglyceridemia E78.[address] [address] Mar, Medicare annual wellness vis it, subsequent Z00.00 ; Hyperlipidemia, unspecified hyperlipidemia E78.5 and Essential hypertension I10 [address] [address] Mar, Forgetfulness R68.89 ; Fatig ue, unspecified type R53.83 and Essential hypertension I10 [place] [address] [place] [id number] [address] [place] [address] Mar, Primary osteoarthritis, 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 and Strain of left trapezius muscle, initial encounter S46.812A [place] [address] [address] Feb, Left wrist pain M25.532 [place] [address] [address] Feb, Left wrist pain M25.532 [place] [address] [address] December, Hypertriglyceridemia E78.1 ; Encounter for immunization Z23 ; Forgetfulness R68.89 and Fatigue, unspecified type R53.83 [place] [address] [address] Jun, Forgetfulness R68.89 and Rhi nitis, unspecified type J31.0 [place] [address] [address] May, [place] [address] [address] May, Hypoxemia R09.02 ; Memory lo ss R41.3 ; Arthralgia, unspecified joint M25.50 and Rhinitis, unspecified type J31.0 [place] [address] [place] [id number] [address] [place] [address] Mar, Vertigo R42 ; Orthostatic hy potension I95.1 and Chronic gastritis without bleeding, unspecified gastritis type K29.50 [place] [address] [place] [id number] [address] [place] [address] Feb, [place] [address] [place] [id number] [address] [place] [address] Feb, Forgetfulness R68.[address] [address] Jan, [address] [address] Jan, Gastroesophageal reflux dise ase without esophagitis K21.9 ; Fatigue, unspecified type R53.83 ; Weakness R53.1 ; Forgetfulness R68.89 ; Hyperlipidemia, unspecified hyperlipidemia E78.5 and Hearing abnormally acute, unspecified laterality H93.[address] [address] Oct, [address] [address] Aug, Upper respiratory tract infe ction, unspecified type J06.[address] [address] Aug, [address] [address] Jun, Acute idiopathic gout, unspe cified site M10.00 ; Encounter for immunization Z23 ; Hyperlipidemia, unspecified hyperlipidemia E78.5 ; Gastroesophageal reflux disease without esophagitis K21.9 and Fatigue, unspecified type R53.83 [place] [id number] [place] [address] Jan, Esophageal reflux 530.81 and Irritable bowel syndrome 564.[address] [address] Jan, [address] [address] Jan, Gastritis 535.50 ; Hx of col onic polyp V12.72 and Positional vertigo 386.[address] [address] Jan, [place] [id number] [place] [address] 04 Jan, 2015 Dizziness 780.4 and Nausea & vomiting 787.01 [facility] [address] [id number] [address] [place] [address] Nov, [facility] [address] [id number] [address] [place] [address] Nov, [facility] [address] [id number] [address] [place] [address] 14 Nov, 2014 [facility] [address] [id number] [address] [place] [address] Nov, [facility] [address] [id number] [address] [place] [address] 16 Oct, 2014 [facility] [address] [id number] [address] [place] [address] Oct, [facility] [address] [id number] [address] [place] [address] Oct, [facility] [address] [id number] [address] [place] [address] Aug, [facility] [address] [id number] [address] [place] [address] Aug, [facility] [address] [id number] [address] [place] [address] Aug, [facility] [address] [id number] [address] [place] [address] Jul, [facility] [address] [id number] [address] [place] [address] Jul, [facility] [address] [id number] [address] [place] [address] Jul, [facility] [address] [id number] [address] [place] [address] Jul, [facility] [address] [id number] [address] [place] [address] Jul, [facility] [address] [id number] [address] [place] [address], [place] [address] Jul, [facility] [address] [id number] [address] [place] [address], [place] [address] Jul, [facility] [address] [id number] [address] [place] [address], [place] [address] Jul, [facility] [address] [id number] [address] [place] [address], [place] [address] Jul, [facility] [address] [id number] [address] [place] [address], [place] [address] Jul, [facility] [address] [id number] [address] [place] [address], [place] [address] Jul, [facility] [address] [id number] [address] [place] [address], [place] [address] Jun, [facility] [address] [id number] [address] [place] [address], [place] [address] Jun, [facility] [address] [id number] [address] [place] [address], [place] [address] Jun, [facility] [address] [id number] [address] [place] [address], [place] [address] Jun, [facility] [address] [id number] [address] [place] [address], [place] [address] 17 Apr, 2014 [facility] [address] [id number] [address] [place] [address], [place] [address] 17 Apr, 2014 [facility] [address] [id number] [address] [place] [address], [place] [address] 17 Apr, 2014 [facility] [address] [id number] [address] [place] [address], [place] [address] 17 Apr, 2014 [facility] [address] [id number] [address] [place] [address], [place] [address] Feb, [facility] [address] [id number] [facility] [place] [address] Feb, [facility] [address] [id number] [facility] [place] [address] Feb, [facility] [address] [id number] [facility] [place] [address] Feb, [facility] [address] [id number] [address] [place] [address], [place] [address] Jan, [facility] [address] [id number] [address] [place] [address], [place] [address] Jan, [facility] [address] [id number] [address] [place] [address], [place] [address] Jan, [facility] [address] [id number] [address] [place] [address], [place] [address] Jan, [facility] [address] [id number] [address] [place] [address], [place] [address] December, [facility] [address] [id number] [address] [place] [address], [place] [address] December, [facility] [address] [id number] [address] [place] [address], [place] [address] December, [facility] [address] [id number] [address] [place] [address], [place] [address] December, [facility] [address] [id number] [address] [place] [address], [place] [address] December, [facility] [address] [id number] [address] [place] [address], [place] [address] December, [facility] [address] [id number] [address] [place] [address], [place] [address] Oct, [facility] [address] [id number] [address] [place] [address], [place] [address] Oct, [facility] [address] [id number] [address] [place] [address], [place] [address] Sep, [facility] [address] [id number] [address] [place] [address], [place] [address] Sep, [facility] [address] [id number] [address] [place] [address], [place] [address] Aug, [facility] [address] [id number] [address] [place] [address], [place] [address] Aug, [facility] [address] [id number] [address] [place] [address], [place] [address] Jul, [facility] [address] [id number] [address] [place] [address], [place] [address] Jul, [facility] [address] [id number] [address] [place] [address], [place] [address] May, [facility] [address] [id number] [address] [place] [address], [place] [address] May, [facility] [address] [id number] [address] [place] [address], [place] [address] May, [facility] [address] [id number] [address] [place] [address], [place] [address] Apr, [facility] [address] [id number] [address] [place] [address], [place] [address] Feb, [facility] [address] [id number] [address] [place] [address], [place] [address] Feb, [facility] [address] [id number] [address] [place] [address], [place] [address] Feb, [facility] [address] [id number] [address] [place] [address], [place] [address] Feb, [facility] [address] [id number] [address] [place] [address], [place] [address] Jan, [facility] [address] [id number] [address] [place] [address], [place] [address] Jan, [facility] [address] [id number] [address] [place] [address], [place] [address] December, [facility] [address] [id number] [address] [place] [address], [place] [address] 16 Nov, 2012 [facility] [address] [id number] [address] [place] [address], [place] [address] Nov, [facility] [address] [id number] [address] [place] [address], [place] [address] Oct, [facility] [address] [id number] [address] [place] [address], [place] [address] Oct, [facility] [address] [id number] [address] [place] [address], [place] [address] Oct, [facility] [address] [id number] [address] [place] [address], [place] [address] Aug, [facility] [address] [id number] [address] [place] [address], [place] [address] Aug, [facility] [address] [id number] [address] [place] [address], [place] [address] Jul, [facility] [address] [id number] [address] [place] [address], [place] [address] Jul, [facility] [address] [id number] [address] [place] [address], [place] [address] Jul, [facility] [address] [id number] [address] [place] [address], [place] [address] Jul, [facility] [address] [id number] [address] [place] [address], [place] [address] Jun, [facility] [address] [id number] [address] [place] [address], [place] [address] Jun, [facility] [address] [id number] [address] [place] [address], [place] [address] May, [facility] [address] [id number] [address] [place] [address], [place] [address] Mar, [facility] [address] [id number] [address] [place] [address], [place] [address] Mar, [facility] [address] [id number] [address] [place] [address], [place] [address] Jan, [facility] [address] [id number] [address] [place] [address], [place] [address] Jan, [facility] [address] [id number] [address] [place] [address], [place] [address] December, [facility] [address] [id number] [address] [place] [address], [place] [address] December, [facility] [address] [id number] [address] [place] [address], [place] [address] December, [facility] [address] [id number] [address] [place] [address], [place] [address] December, [facility] [address] [id number] [address] [place] [address], [place] [address] Sep, [facility] [address] [id number] [address] [place] [address], [place] [address] Sep, [facility] [address] [id number] [address] [place] [address], [place] [address] Jun, [facility] [address] [id number] [address] [place] [address], [place] [address] Jun, [facility] [address] [id number] [address] [place] [address], [place] [address] 18 May, 2011 [facility] [address] [id number] [address] [place] [address], [place] [address] Feb, [facility] [address] [id number] [address] [place] [address], [place] [address] Mar, [facility] [address] [id number] [address] [place] [address], [place] [address] Nov, [facility] [address] [id number] [address] [place] [address] Sep, [facility] [address] [facility] [id number] [address] [place] [address] Jun, [facility] [address] [facility] [id number] [address] [place] [address] Jun, [facility] [address] [facility] [id number] [address] [place] [address] May, [facility] [address] [facility] [id number] [address] [place] [address] Mar, [facility] [address] [facility] [id number] [address] [place] [address] December, IMMUNIZATIONS No Known Immunizations SOCIAL HISTORY Never Assessed REASON FOR VISIT Refill request PLAN OF CARE VITAL SIGNS MEDICATIONS Medication Instructions Dosage Frequency Start Date End Date Duration S luigi Lisinopril 5 MG Orally Once a day 1 tablet 24h Feb, 90 days Active RESULTS No Results PROCEDURES No Known [...]
--- OUTSIDE RECORDS SUMMARY | 2020-02-28 02:38 | XMS REPORT ---
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 Active 642353859 Problem Rhinitis, unspecified type J31.0 Act michael 41066354 Problem Hypertriglyceridemia E78.1 Active 626004960 Problem Colon polyp K63.5 Active 67367458 Problem Gastroesophageal reflux disease with esophagitis K 21.0 Active 353846153 Problem Nocturnal hypoxia G47.34 Active 38 2326731 Problem Stage 3 chronic kidney disease N18.3 Active 255255802 Problem Other chronic gastritis without hemorrhage K29.50 Active 8529626 Problem Hyperlipidemia, unspecified hyperlipidemia E78.5 Active 54089643 Problem Essential hypertension I10 Active 26248506 Problem Anxiety F41.9 Active 45224880 Problem Gastroesophageal reflux disease without esophagitis K21.9 Active 588979658 ALLERGIES Substance Reaction Event Type Date Status Sulfamethoxazole-Trimethoprim Unknown Drug Allergy Jun, 8 Active Penicillin V Potassium Unknown Drug Allergy Jun, Activ e Lisinopril chronic dry cough Drug Allergy Jun, Active ENCOUNTERS Encounter Location Date Diagnosis [facility] [address] [facility] [id number] [address] [place] [address] Jul, [facility] [address] [facility] [id number] [address] [place] [address] Jun, Anxiety F41.9 and Essential hypertension I10 [facility] [address] [facility] [id number] [address] [place] [address] Jun, [facility] [address] [facility] [id number] [address] [place] [address] Jun, Essential hypertension I10 [facility] [address] [address] May, [facility] [address] [address] May, Herpes zoster without compli cation B02.9 and Stage 3 chronic kidney disease N18.3 [place] [address] [address] Mar, Essential hypertension I10 [place] [address] [address] Feb, [place] [address] [address] Feb, [facility] [address] [address] Feb, Essential hypertension I10 a nd Acute midline low back pain without sciatica M54.5 [facility] [address] [address] December, Insect bite (nonvenomous) of lower back and pelvis, initial encounter S30.860A and Bitten or stung by nonvenomous insect and other nonvenomous arthropods, initial encounter W57.XXXA [place] [address] [address] Nov, Pleurisy R09.1 [place] [address] [address] Nov, [place] [address] [address] Oct, Hypoxemia R09.02 and Fatigue , unspecified type R53.83 [place] [address] [address] 12 Sep, 2017 Other chronic gastritis with out hemorrhage K29.50 ; Gastroesophageal reflux disease without esophagitis K21.9 ; Hyperlipidemia, unspecified hyperlipidemia E78.5 and Arthralgia, unspecified joint M25.50 [place] [address] [address] [facility] [id number] [address] [place] [address] Aug, Hypertriglyceridemia E78.1 [place] [address] [facility] [id number] [address] [place] [address] May, Anxiety F41.9 [place] [address] [facility] [id number] [address] [place] [address] Apr, Hyperlipidemia, unspecified hyperlipidemia E78.5 ; Gastroesophageal reflux disease without esophagitis K21.9 ; Forgetfulness R68.89 ; Essential hypertension I10 and Anxiety F41.9 [place] [address] [facility] [id number] [address] [place] [address] Apr, Hypertriglyceridemia E78.1 [place] [address] [address] [place] [id number] [address] [place] [address] Mar, Medicare annual wellness vis it, subsequent Z00.00 ; Hyperlipidemia, unspecified hyperlipidemia E78.5 and Essential hypertension I10 [place] [address] [address] [facility] [id number] [address] [place] [address] Mar, Forgetfulness R68.89 ; Fatig ue, unspecified type R53.83 and Essential hypertension I10 [place] [address] [address] [facility] [id number] [address] [place] [address] Mar, Primary osteoarthritis, 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 and Strain of left trapezius muscle, initial encounter S46.812A [place] [address] [address] [facility] [id number] [address] [place] [address] Feb, Left wrist pain M25.532 [place] [address] [address] [facility] [id number] [address] [place] [address] Feb, Left wrist pain M25.532 [place] [address] [address] [facility] [id number] [address] [place] [address] December, Hypertriglyceridemia E78.1 ; Encounter for immunization Z23 ; Forgetfulness R68.89 and Fatigue, unspecified type R53.83 [place] [address] [address] Jun, Forgetfulness R68.89 and Rhi nitis, unspecified type J31.0 [place] [address] [address] May, [place] [address] [address] May, Hypoxemia R09.02 ; Memory lo ss R41.3 ; Arthralgia, unspecified joint M25.50 and Rhinitis, unspecified type J31.0 [place] [address] [address] Mar, Vertigo R42 ; Orthostatic hy potension I95.1 and Chronic gastritis without bleeding, unspecified gastritis type K29.50 [place] [address] [address] Feb, [place] [address] [address] Feb, Forgetfulness R68.89 [place] [address] [address] [place] [id number] Jan, [place] [address] [address] Jan, Gastroesophageal reflux dise ase without esophagitis K21.9 ; Fatigue, unspecified type R53.83 ; Weakness R53.1 ; Forgetfulness R68.89 ; Hyperlipidemia, unspecified hyperlipidemia E78.5 and Hearing abnormally acute, unspecified laterality H93.239 [place] [address] [address] Oct, [place] [address] [address] Aug, Upper respiratory tract infe ction, unspecified type J06.9 [place] [address] [address] 07 Aug, 2015 [place] [address] [address] Jun, Acute idiopathic gout, unspe cified site M10.00 ; Encounter for immunization Z23 ; Hyperlipidemia, unspecified hyperlipidemia E78.5 ; Gastroesophageal reflux disease without esophagitis K21.9 and Fatigue, unspecified type R53.83 [place] [address] [address] 17 Jan, 2015 Esophageal reflux 530.81 and Irritable bowel syndrome 564.[address] [address] 15 Jan, 2015 [place] [address] [address] 10 Jan, 2015 Gastritis 535.50 ; Hx of col onic polyp V12.72 and Positional vertigo 386.11 [place] [address] [address] 09 Jan, [address] [address] 04 Jan, 2015 Dizziness 780.4 and Nausea & vomiting 787.01 [place] [address] [address] Nov, [place] [address] [address] 28 Nov, 2014 [place] [address] [address] 14 Nov, 2014 [place] [address] [address] 13 Nov, 2014 [place] [address] [address] 16 Oct, 2014 [place] [address] [address] Oct, [facility] [address] [id number] [address] [place] [address], [place] [address] Oct, [facility] [address] [id number] [address] [place] [address], [place] [address] Aug, [facility] [address] [id number] [address] [place] [address], [place] [address] Aug, [facility] [address] [id number] [address] [place] [address], [place] [address] Aug, [facility] [address] [id number] [address] [place] [address], [place] [address] Jul, [facility] [address] [id number] [address] [place] [address], [place] [address] Jul, [facility] [address] [id number] [address] [place] [address], [place] [address] Jul, [facility] [address] [id number] [address] [place] [address], [place] [address] Jul, [facility] [address] [id number] [address] [place] [address], [place] [address] Jul, [facility] [address] [id number] [address] [place] [address], [place] [address] Jul, [facility] [address] [id number] [address] [place] [address], [place] [address] Jul, [facility] [address] [id number] [address] [place] [address], [place] [address] Jul, [facility] [address] [id number] [address] [place] [address], [place] [address] Jul, [facility] [address] [id number] [address] [place] [address], [place] [address] Jul, [facility] [address] [id number] [address] [place] [address], [place] [address] Jul, [facility] [address] [id number] [address] [place] [address], [place] [address] 14 Jun, 2014 [facility] [address] [id number] [address] [place] [address], [place] [address] 14 Jun, 2014 [facility] [address] [id number] [address] [place] [address], [place] [address] 10 Jun, 2014 [facility] [address] [id number] [address] [place] [address], [place] [address] 10 Jun, 2014 [facility] [address] [id number] [address] [place] [address], [place] [address] 17 Apr, 2014 [facility] [address] [id number] [address] [place] [address], [place] [address] 17 Apr, 2014 [facility] [address] [id number] [address] [place] [address], [place] [address] 17 Apr, 2014 [facility] [address] [id number] [address] [place] [address], [place] [address] 17 Apr, 2014 [facility] [address] [id number] [address] [place] [address], [place] [address] Feb, [facility] [address] [id number] [address] [place] [address], [place] [address] Feb, [facility] [address] [id number] [address] [place] [address], [place] [address] Feb, [facility] [address] [id number] [address] [place] [address], [place] [address] Feb, [facility] [address] [id number] [address] [place] [address], [place] [address] Jan, [facility] [address] [id number] [address] [place] [address], [place] [address] Jan, [facility] [address] [id number] [address] [place] [address], [place] [address] Jan, [facility] [address] [id number] [address] [place] [address], [place] [address] Jan, [facility] [address] [id number] [address] [place] [address], [place] [address] December, [facility] [address] [id number] [address] [place] [address], [place] [address] December, [facility] [address] [id number] [address] [place] [address], [place] [address] December, [facility] [address] [id number] [address] [place] [address], [place] [address] December, [facility] [address] [id number] [address] [place] [address], [place] [address] December, [facility] [address] [id number] [address] [place] [address], [place] [address] December, [facility] [address] [id number] [address] [place] [address], [place] [address] Oct, [facility] [address] [id number] [address] [place] [address], [place] [address] Oct, [facility] [address] [id number] [address] [place] [address], [place] [address] Sep, [facility] [address] [id number] [address] [place] [address], [place] [address] Sep, [facility] [address] [id number] [address] [place] [address], [place] [address] Aug, [facility] [address] [id number] [address] [place] [address], [place] [address] Aug, [facility] [address] [id number] [address] [place] [address], [place] [address] Jul, [facility] [address] [id number] [address] [place] [address], [place] [address] Jul, [facility] [address] [id number] [address] [place] [address], [place] [address] May, [facility] [address] [id number] [address] [place] [address], [place] [address] May, [facility] [address] [id number] [address] [place] [address], [place] [address] May, [facility] [address] [id number] [address] [place] [address], [place] [address] Apr, [facility] [address] [id number] [address] [place] [address], [place] [address] Feb, [facility] [address] [id number] [address] [place] [address], [place] [address] Feb, [facility] [address] [id number] [address] [place] [address], [place] [address] Feb, [facility] [address] [id number] [address] [place] [address], [place] [address] Feb, [facility] [address] [id number] [address] [place] [address], [place] [address] Jan, [facility] [address] [id number] [address] [place] [address], [place] [address] Jan, [facility] [address] [id number] [address] [place] [address], [place] [address] December, [facility] [address] [id number] [address] [place] [address], [place] [address] 16 Nov, 2012 [facility] [address] [id number] [address] [place] [address], [place] [address] 04 Nov, 2012 [facility] [address] [id number] [address] [place] [address], [place] [address] 13 Oct, 2012 [facility] [address] [id number] [address] [place] [address], [place] [address] 06 Oct, 2012 [facility] [address] [id number] [address] [place] [address], [place] [address] 04 Oct, 2012 [facility] [address] [id number] [address] [place] [address], [place] [address] Aug, [facility] [address] [id number] [address] [place] [address], [place] [address] Aug, [facility] [address] [id number] [address] [place] [address], [place] [address] Jul, [facility] [address] [id number] [address] [place] [address], [place] [address] Jul, [facility] [address] [id number] [address] [place] [address], [place] [address] Jul, [facility] [address] [id number] [address] [place] [address], [place] [address] Jul, [facility] [address] [id number] [address] [place] [address], [place] [address] Jun, [facility] [address] [id number] [address] [place] [address], [place] [address] Jun, [facility] [address] [id number] [address] [place] [address], [place] [address] May, [facility] [address] [id number] [address] [place] [address], [place] [address] Mar, [facility] [address] [id number] [address] [place] [address], [place] [address] Mar, [facility] [address] [id number] [address] [place] [address], [place] [address] Jan, [facility] [address] [id number] [address] [place] [address], [place] [address] Jan, [facility] [address] [id number] [address] [place] [address], [place] [address] December, [facility] [address] [id number] [address] [place] [address], [place] [address] December, [facility] [address] [id number] [address] [place] [address], [place] [address] December, [facility] [address] [id number] [address] [place] [address], [place] [address] December, [facility] [address] [id number] [address] [place] [address] 17 Sep, 2011 [facility] [address] [id number] [address] [place] [address] 13 Sep, 2011 [facility] [address] [id number] [address] [place] [address] 14 Jun, 2011 [facility] [address] [id number] [address] [place] [address] 14 Jun, 2011 [facility] [address] [id number] [address] [place] [address] 18 May, 2011 [facility] [address] [id number] [address] [place] [address] Feb, [facility] [address] [id number] [address] [place] [address] Mar, [facility] [address] [id number] [address] [place] [address] Nov, [facility] [address] [id number] [address] [place] [address] Sep, [facility] [address] [id number] [address] [place] [address] Jun, [facility] [address] [id number] [address] [place] [address] Jun, [facility] [address] [id number] [address] [place] [address] May, [facility] [address] [id number] [address] [place] [address] Mar, [facility] [address] [id number] [address] [place] [address] December, IMMUNIZATIONS No Known Immunizations SOCIAL HISTORY Never Assessed REASON FOR VISIT elevated blood pressure - took in both arms and it was 122/78 rt arm and 128/ 84 in left arm [place] , was high at eye dr last week and was told to come see if there is an underlying problems [place], pt says we have always had very high numbers on top and bottom and at other providers [facility] PLAN OF CARE Activity Details Follow Up Reg appt Reason: VITAL SIGNS Height 64 in 2018-06-18 Weight 128.6 lbs 2018-06-18 Temperature 97.8 degrees Fahrenheit 2018-06-18 Heart Rate 104 bpm 2018-06-18 Respiratory Rate 20 2018-06-18 BMI 22.07 kg/m2 2018-06-18 Blood pressure systolic 126 mmHg 2018-06-18 Blood pressure diastolic 84 mmHg 2018-06-18 MEDICATIONS Medication Instructions Dosage Frequency Start Date End Date Duration S tatus Calcium + D3 600-200 MG-UNIT Orally Once a day 1 tablet with a meal 24h Active Multi Vitamin/Minerals - Active Aspir-81 81 MG Orally Once a day 1 tablet 24h Active Tylenol Active Fluticasone Propionate 50 MCG/ACT Nasally twice a day 1 spray in each nostril 12h 10 May, 2016 Active Cetirizine HCl 10 mg Orally Once a day for itching 1 tablet 01 2017 Active Famotidine 20 mg Orally twice a day 1 tablet 12h 30 Active BuPROPion HCl ER (SR) 200 mg Orally Twice a day 1 tablet 12h 90 Active Lisinopril 5 MG Orally Once a day 1 tablet 24h Feb, 90 days Active RESULTS No Results PROCEDURES Procedure Date Ordered Result Body Site [facility] VISIT ESTABLISHED PATIENT Jun 18, 2018 INSTRUCTIONS MEDICATIONS ADMINISTERED No Known Medications [...]
--- OUTSIDE RECORDS SUMMARY | 2020-02-28 02:39 | XMS REPORT ---
Author Author Lisy PIERRE Organization [facility] Address [address] [place] [address] Care Team Providers Care Associate Professor Of Chemistry Name Role Phone ROSEANN PIERRE Unavailable PROBLEMS Type Condition ICD9-CM Code GXL95-BE Code Onset Dates Condition S tatus SNOMED Code Problem Nocturnal hypoxia G47.34 Active 38 1222695 Problem Rhinitis, unspecified type J31.0 Act michael 44988690 Problem Memory loss R41.3 Active 73586182 Problem Hypertriglyceridemia E78.1 Active 181686767 Problem Colon polyp K63.5 Active 12469379 Problem Gastroesophageal reflux disease with esophagitis K 21.0 Active 614380017 Problem Other chronic gastritis without hemorrhage K29.50 Active 9308183 Problem Anxiety F41.9 Active 44072830 Problem Essential hypertension I10 Active 05433464 Problem Primary osteoarthritis, 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 Active 860792546 Problem Gastroesophageal reflux disease without esophagitis K21.9 Active 127021749 Problem Hyperlipidemia, unspecified hyperlipidemia E78.5 Active 46253736 ALLERGIES Substance Reaction Event Type Date Status Sulfamethoxazole-Trimethoprim Unknown Drug Allergy Nov, 201 8 Active Penicillin V Potassium Unknown Drug Allergy Nov, Activ e Lisinopril chronic dry cough Drug Allergy Nov, Active ENCOUNTERS Encounter Location Date Diagnosis [facility] [address] [facility] [id number] [place] [address] Feb, [facility] [address] [id number] [place] [address] Feb, [facility] [address] [id number] [place] [address] Feb, Essential hypertension I10 a nd Acute midline low back pain without sciatica M54.5 [facility] [address] [id number] [place] [address] December, Insect bite (nonvenomous) of lower back and pelvis, initial encounter S30.860A and Bitten or stung by nonvenomous insect and other nonvenomous arthropods, initial encounter W57.XXXA [place] [address] [address] Nov, Pleurisy R09.[address] [address] Nov, [place] [address] [address] Oct, Hypoxemia R09.02 and Fatigue , unspecified type R53.[address] [address] Sep, Other chronic gastritis with out hemorrhage K29.50 ; Gastroesophageal reflux disease without esophagitis K21.9 ; Hyperlipidemia, unspecified hyperlipidemia E78.5 and Arthralgia, unspecified joint M25.[address] [address] Aug, Hypertriglyceridemia E78.[address] [address] May, Anxiety F41.[address] [address] Apr, Hyperlipidemia, unspecified hyperlipidemia E78.5 ; Gastroesophageal reflux disease without esophagitis K21.9 ; Forgetfulness R68.89 ; Essential hypertension I10 and Anxiety F41.[address] [address] Apr, Hypertriglyceridemia E78.[address] [address] Mar, Medicare annual wellness vis it, subsequent Z00.00 ; Hyperlipidemia, unspecified hyperlipidemia E78.5 and Essential hypertension I10 [id number] [place] [address] Mar, Forgetfulness R68.89 ; Fatig ue, unspecified type R53.83 and Essential hypertension I10 [place] [address] [address] [place] [id number] [address] [place] [address] Mar, Primary osteoarthritis, 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 and Strain of left trapezius muscle, initial encounter S46.812A [place] [address] [address] Feb, Left wrist pain M25.532 [place] [address] [address] Feb, Left wrist pain M25.532 [place] [address] [address] December, Hypertriglyceridemia E78.1 ; Encounter for immunization Z23 ; Forgetfulness R68.89 and Fatigue, unspecified type R53.83 [place] [address] [address] [place] [id number] [address] [place] [address] Jun, Forgetfulness R68.89 and Rhi nitis, unspecified type J31.0 [place] [address] [address] May, [place] [address] [address] May, Hypoxemia R09.02 ; Memory lo ss R41.3 ; Arthralgia, unspecified joint M25.50 and Rhinitis, unspecified type J31.0 [place] [address] [address] [place] [id number] [address] [place] [address] Mar, Vertigo R42 ; Orthostatic hy potension I95.1 and Chronic gastritis without bleeding, unspecified gastritis type K29.50 [place] [address] [address] [place] [id number] [address] [place] [address] Feb, [place] [address] [address] Feb, Forgetfulness R68.89 [place] [address] [address] Jan, [place] [address] [address] Jan, Gastroesophageal reflux dise ase without esophagitis K21.9 ; Fatigue, unspecified type R53.83 ; Weakness R53.1 ; Forgetfulness R68.89 ; Hyperlipidemia, unspecified hyperlipidemia E78.5 and Hearing abnormally acute, unspecified laterality H93.[address] [address] Oct, [place] [address] [address] Aug, Upper respiratory tract infe ction, unspecified type J06.[address] [address] Aug, [place] [address] [address] Jun, Acute idiopathic gout, unspe cified site M10.00 ; Encounter for immunization Z23 ; Hyperlipidemia, unspecified hyperlipidemia E78.5 ; Gastroesophageal reflux disease without esophagitis K21.9 and Fatigue, unspecified type R53.[address] [address] 17 Jan, 2015 Esophageal reflux 530.81 and Irritable bowel syndrome 564.[address] [address] Jan, [address] [address] Jan, Gastritis 535.50 ; Hx of col onic polyp V12.72 and Positional vertigo 386.[address] [address] 09 Jan, 2015 [facility] [address] [id number] [address] [place] [address] Jan, Dizziness 780.4 and Nausea & vomiting 787.01 [facility] [address] [id number] [address] [place] [address] Nov, [facility] [address] [id number] [address] [place] [address] Nov, [facility] [address] [id number] [address] [place] [address] Nov, [facility] [address] [id number] [address] [place] [address], [place] [address] Nov, [facility] [address] [id number] [address] [place] [address] 16 Oct, 2014 [facility] [address] [id number] [address] [place] [address] Oct, [facility] [address] [id number] [address] [place] [address] Oct, [facility] [address] [id number] [address] [place] [address] Aug, [facility] [address] [id number] [address] [place] [address] Aug, [facility] [address] [id number] [address] [place] [address] Aug, [facility] [address] [id number] [address] [place] [address] Jul, [facility] [address] [id number] [address] [place] [address], [place] [address] Jul, [facility] [address] [id number] [address] [place] [address], [place] [address] Jul, [facility] [address] [id number] [address] [place] [address], [place] [address] Jul, [facility] [address] [id number] [address] [place] [address], [place] [address] 10 Jul, 2014 [facility] [address] [id number] [address] [place] [address], [place] [address] Jul, [facility] [address] [id number] [address] [place] [address], [place] [address] Jul, [facility] [address] [id number] [address] [place] [address], [place] [address] Jul, [facility] [address] [id number] [address] [place] [address], [place] [address] Jul, [facility] [address] [id number] [address] [place] [address], [place] [address] Jul, [facility] [address] [id number] [address] [place] [address], [place] [address] Jul, [facility] [address] [id number] [address] [place] [address], [place] [address] Jun, [facility] [address] [id number] [address] [place] [address], [place] [address] 14 Jun, 2014 [facility] [address] [id number] [address] [place] [address], [place] [address] Jun, [facility] [address] [id number] [address] [place] [address], [place] [address] Jun, [facility] [address] [id number] [address] [place] [address], [place] [address] 17 Apr, 2014 [facility] [address] [id number] [address] [place] [address], [place] [address] 17 Apr, 2014 [facility] [address] [id number] [address] [place] [address], [place] [address] 17 Apr, 2014 [facility] [address] [id number] [address] [place] [address], [place] [address] 17 Apr, 2014 [facility] [address] [id number] [address] [place] [address], [place] [address] Feb, [facility] [address] [id number] [address] [place] [address], [place] [address] Feb, [facility] [address] [id number] [address] [place] [address], [place] [address] Feb, [facility] [address] [id number] [address] [place] [address], [place] [address] Feb, [facility] [address] [id number] [address] [place] [address], [place] [address] Jan, [facility] [address] [id number] [address] [place] [address], [place] [address] Jan, [facility] [address] [id number] [address] [place] [address], [place] [address] Jan, [facility] [address] [id number] [address] [place] [address], [place] [address] Jan, [facility] [address] [id number] [address] [place] [address], [place] [address] December, [facility] [address] [id number] [address] [place] [address], [place] [address] December, [facility] [address] [id number] [address] [place] [address], [place] [address] December, [facility] [address] [id number] [address] [place] [address], [place] [address] December, [facility] [address] [id number] [address] [place] [address], [place] [address] December, [facility] [address] [id number] [address] [place] [address], [place] [address] December, [facility] [address] [id number] [address] [place] [address], [place] [address] Oct, [facility] [address] [id number] [address] [place] [address], [place] [address] Oct, [facility] [address] [id number] [address] [place] [address], [place] [address] Sep, [facility] [address] [id number] [address] [place] [address], [place] [address] Sep, [facility] [address] [id number] [address] [place] [address], [place] [address] Aug, [facility] [address] [id number] [address] [place] [address], [place] [address] Aug, [facility] [address] [id number] [address] [place] [address], [place] [address] Jul, [facility] [address] [id number] [address] [place] [address], [place] [address] Jul, [facility] [address] [id number] [address] [place] [address], [place] [address] May, [facility] [address] [id number] [address] [place] [address], [place] [address] May, [facility] [address] [id number] [address] [place] [address], [place] [address] May, [facility] [address] [id number] [address] [place] [address], [place] [address] Apr, [facility] [address] [id number] [address] [place] [address], [place] [address] Feb, [facility] [address] [id number] [address] [place] [address], [place] [address] Feb, [facility] [address] [id number] [address] [place] [address], [place] [address] Feb, [facility] [address] [id number] [address] [place] [address], [place] [address] Feb, [facility] [address] [id number] [address] [place] [address], [place] [address] Jan, [facility] [address] [id number] [address] [place] [address], [place] [address] Jan, [facility] [address] [id number] [address] [place] [address], [place] [address] December, [facility] [address] [id number] [address] [place] [address], [place] [address] 16 Nov, 2012 [facility] [address] [id number] [address] [place] [address], [place] [address] Nov, [facility] [address] [id number] [address] [place] [address], [place] [address] Oct, [facility] [address] [id number] [address] [place] [address], [place] [address] Oct, [facility] [address] [id number] [address] [place] [address], [place] [address] Oct, [facility] [address] [id number] [address] [place] [address], [place] [address] Aug, [facility] [address] [id number] [address] [place] [address], [place] [address] Aug, [facility] [address] [id number] [address] [place] [address], [place] [address] Jul, [facility] [address] [id number] [address] [place] [address], [place] [address] Jul, [facility] [address] [id number] [address] [place] [address], [place] [address] Jul, [facility] [address] [id number] [address] [place] [address], [place] [address] Jul, [facility] [address] [id number] [address] [place] [address], [place] [address] Jun, [facility] [address] [id number] [address] [place] [address], [place] [address] Jun, [facility] [address] [id number] [address] [place] [address], [place] [address] May, [facility] [address] [id number] [address] [place] [address], [place] [address] Mar, [facility] [address] [id number] [address] [place] [address], [place] [address] Mar, [facility] [address] [id number] [address] [place] [address], [place] [address] Jan, [facility] [address] [id number] [address] [place] [address], [place] [address] Jan, [facility] [address] [id number] [address] [place] [address], [place] [address] December, [facility] [address] [id number] [address] [place] [address], [place] [address] December, [facility] [address] [id number] [address] [place] [address], [place] [address] December, [facility] [address] [id number] [address] [place] [address], [place] [address] December, [facility] [address] [id number] [address] [place] [address], [place] [address] Sep, [facility] [address] [id number] [address] [place] [address], [place] [address] Sep, [facility] [address] [id number] [address] [place] [address], [place] [address] Jun, [facility] [address] [id number] [address] [place] [address], [place] [address] 14 Jun, 2011 [facility] [address] [id number] [address] [place] [address], [place] [address] 18 May, 2011 [facility] [address] [id number] [address] [place] [address], [place] [address] Feb, [facility] [address] [id number] [address] [place] [address], [place] [address] Mar, [facility] [address] [id number] [address] [place] [address], [place] [address] Nov, [facility] [address] [id number] [address] [place] [address] Sep, [facility] [address] [id number] [place] [address] Jun, [facility] [address] [facility] [id number] [place] [address] Jun, [facility] [address] [facility] [id number] [place] [address] May, [facility] [address] [facility] [id number] [place] [address] Mar, [facility] [address] [id number] [place] [address] December, IMMUNIZATIONS No Known Immunizations SOCIAL HISTORY Never Assessed REASON FOR VISIT [facility] follow up PLAN OF CARE Activity Details Follow Up 3 Months Reason:GERD VITAL SIGNS Height 64 in 2017-11-12 Weight 131 lbs 2017-11-12 Temperature 98.1 degrees Fahrenheit 2017-11-12 Heart Rate 100 bpm 2017-11-12 Respiratory Rate 20 2017-11-12 BMI 22.48 kg/m2 2017-11-12 Blood pressure systolic 128 mmHg 2017-11-12 Blood pressure diastolic 72 mmHg 2017-11-12 MEDICATIONS Medication Instructions Dosage Frequency Start Date End Date Duration S tatus Aricept 10 mg Orally Once a day 1/2 tablet 24h May, Not-Taking Stool Softener 100 MG Orally Once a day 3 capsule as needed 24h Not-Taking Aspir-81 81 MG Orally Once a day 1 tablet 24h Active Multi Vitamin/Minerals - Active Ventolin HFA 108 (90 Base) MCG/ACT Inhalation every 6 hrs 2 puffs a s needed 6h Not-Taking Calcium + D3 600-200 MG-UNIT Orally Once a day 1 tablet with a meal 24h Active Vitamin E 400 UNIT Orally Once a day 1 capsule 24h Active Fluticasone Propionate 50 MCG/ACT Nasally twice a day 1 spray in each nostril 12h May, Active BuPROPion HCl ER (SR) 200 mg Orally Twice a day 1 tablet 12h 90 Active Famotidine 20 mg Orally twice a day 1 tablet 12h Apr, 30 Active RESULTS No Results PROCEDURES Procedure Date Ordered Result Body Site [facility] VISIT ESTABLISHED PATIENT November 12, 2017 INSTRUCTIONS MEDICATIONS ADMINISTERED No Known Medications MEDICAL [...]
--- OUTSIDE RECORDS SUMMARY | 2020-02-28 02:39 | XMS REPORT ---
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 Name Role Phone ROSEANN PIERRE Unavailable PROBLEMS Type Condition ICD9-CM Code DAR56-LX Code Onset Dates Condition S tatus SNOMED Code Problem Nocturnal hypoxia G47.34 Active 38 0542991 Problem Rhinitis, unspecified type J31.0 Act michael 67164285 Problem Memory loss R41.3 Active 16036180 Problem Hypertriglyceridemia E78.1 Active 483704424 Problem Colon polyp K63.5 Active 19274779 Problem Gastroesophageal reflux disease with esophagitis K 21.0 Active 771757582 Problem Other chronic gastritis without hemorrhage K29.50 Active 5041462 Problem Anxiety F41.9 Active 61790618 Problem Essential hypertension I10 Active 84712433 Problem Primary osteoarthritis, 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 Active 062416128 Problem Gastroesophageal reflux disease without esophagitis K21.9 Active 932473719 Problem Hyperlipidemia, unspecified hyperlipidemia E78.5 Active 87043448 ALLERGIES No Information ENCOUNTERS Encounter Location Date Diagnosis [facility] [address] [address] Feb, [facility] [address] [address] Feb, Essential hypertension I10 a nd Acute midline low back pain without sciatica M54.5 [facility] [address] [address] December, Insect bite (nonvenomous) of lower back and pelvis, initial encounter S30.860A and Bitten or stung by nonvenomous insect and other nonvenomous arthropods, initial encounter W57.XXXA [facility] [address] [address] 09 Nov, 2017 Pleurisy R09.1 [place] [address] [address] Nov, [place] [address] [address] 14 Oct, 2017 Hypoxemia R09.02 and Fatigue , unspecified type R53.83 [place] [address] [address] 12 Sep, 2017 Other chronic gastritis with out hemorrhage K29.50 ; Gastroesophageal reflux disease without esophagitis K21.9 ; Hyperlipidemia, unspecified hyperlipidemia E78.5 and Arthralgia, unspecified joint M25.50 [place] [address] [address] Aug, Hypertriglyceridemia E78.1 [place] [address] [address] 02 May, 2017 Anxiety F41.9 [place] [address] [address] 21 Apr, 2017 Hyperlipidemia, unspecified hyperlipidemia E78.5 ; Gastroesophageal reflux disease without esophagitis K21.9 ; Forgetfulness R68.89 ; Essential hypertension I10 and Anxiety F41.9 [place] [address] [address] 14 Apr, 2017 Hypertriglyceridemia E78.1 [place] [address] [address] 30 Mar, 2017 Medicare annual wellness vis it, subsequent Z00.00 ; Hyperlipidemia, unspecified hyperlipidemia E78.5 and Essential hypertension I10 [place] [address] [address] Mar, Forgetfulness R68.89 ; Fatig ue, unspecified type R53.83 and Essential hypertension I10 [place] [address] [address] Mar, Primary osteoarthritis, 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 and Strain of left trapezius muscle, initial encounter S46.812A [place] [address] [address] [place] [id number] [address] [place] [address] Feb, Left wrist pain M25.532 [place] [address] [address] [facility] [id number] [address] [place] [address] Feb, Left wrist pain M25.532 [place] [address] [address] [place] [id number] [address] [place] [address] December, Hypertriglyceridemia E78.1 ; Encounter for immunization Z23 ; Forgetfulness R68.89 and Fatigue, unspecified type R53.83 [place] [address] [address] [place] [id number] [address] [place] [address] Jun, Forgetfulness R68.89 and Rhi nitis, unspecified type J31.0 [place] [address] [address] [place] [id number] [address] [place] [address] May, [place] [address] [place] [id number] [address] [place] [address] May, Hypoxemia R09.02 ; Memory lo ss R41.3 ; Arthralgia, unspecified joint M25.50 and Rhinitis, unspecified type J31.0 [place] [address] [place] [id number] [address] [place] [address] Mar, Vertigo R42 ; Orthostatic hy potension I95.1 and Chronic gastritis without bleeding, unspecified gastritis type K29.50 [place] [address] [address] [facility] [id number] [address] [place] [address] Feb, [place] [address] [place] [id number] [address] [place] [address] Feb, Forgetfulness R68.89 [place] [address] [address] [facility] [id number] [address] [place] [address] Jan, [place] [address] [place] [id number] [address] [place] [address] Jan, Gastroesophageal reflux dise ase without esophagitis K21.9 ; Fatigue, unspecified type R53.83 ; Weakness R53.1 ; Forgetfulness R68.89 ; Hyperlipidemia, unspecified hyperlipidemia E78.5 and Hearing abnormally acute, unspecified laterality H93.239 [place] [address] [address] Oct, [place] [address] [address] Aug, Upper respiratory tract infe ction, unspecified type J06.[address] [address] Aug, [place] [address] [address] Jun, Acute idiopathic gout, unspe cified site M10.00 ; Encounter for immunization Z23 ; Hyperlipidemia, unspecified hyperlipidemia E78.5 ; Gastroesophageal reflux disease without esophagitis K21.9 and Fatigue, unspecified type R53.83 [place] [address] [address] Jan, Esophageal reflux 530.81 and Irritable bowel syndrome 564.[address] [address] Jan, [address] [address] Jan, Gastritis 535.50 ; Hx of col onic polyp V12.72 and Positional vertigo 386.11 [place] [address] [address] Jan, [address] [address] 04 Jan, 2015 Dizziness 780.4 and Nausea & vomiting 787.[address] [address] Nov, [facility] [address] [id number] [address] [place] [address], [place] [address] 28 Nov, 2014 [facility] [address] [id number] [address] [place] [address], [place] [address] 14 Nov, 2014 [facility] [address] [id number] [address] [place] [address], [place] [address] 13 Nov, 2014 [facility] [address] [id number] [address] [place] [address], [place] [address] 16 Oct, 2014 [facility] [address] [id number] [address] [place] [address], [place] [address] Oct, [facility] [address] [id number] [address] [place] [address], [place] [address] Oct, [facility] [address] [id number] [address] [place] [address], [place] [address] Aug, [facility] [address] [id number] [address] [place] [address], [place] [address] Aug, [facility] [address] [id number] [address] [place] [address], [place] [address] Aug, [facility] [address] [id number] [address] [place] [address], [place] [address] Jul, [facility] [address] [id number] [address] [place] [address], [place] [address] 31 Jul, 2014 [facility] [address] [id number] [address] [place] [address], [place] [address] Jul, [facility] [address] [id number] [address] [place] [address], [place] [address] 11 Jul, 2014 [facility] [address] [id number] [address] [place] [address], [place] [address] 10 Jul, 2014 [facility] [address] [id number] [address] [place] [address], [place] [address] 08 Jul, 2014 [facility] [address] [id number] [address] [place] [address], [place] [address] Jul, [facility] [address] [id number] [address] [place] [address], [place] [address] Jul, [facility] [address] [id number] [address] [place] [address], [place] [address] Jul, [facility] [address] [id number] [address] [place] [address], [place] [address] Jul, [facility] [address] [id number] [address] [place] [address], [place] [address] Jul, [facility] [address] [id number] [address] [place] [address], [place] [address] Jun, [facility] [address] [id number] [address] [place] [address], [place] [address] Jun, [facility] [address] [id number] [address] [place] [address], [place] [address] Jun, [facility] [address] [id number] [address] [place] [address], [place] [address] Jun, [facility] [address] [id number] [address] [place] [address], [place] [address] 17 Apr, 2014 [facility] [address] [id number] [address] [place] [address], [place] [address] Apr, [facility] [address] [id number] [address] [place] [address], [place] [address] Apr, [facility] [address] [id number] [address] [place] [address], [place] [address] Apr, [facility] [address] [id number] [address] [place] [address], [place] [address] Feb, [facility] [address] [id number] [address] [place] [address], [place] [address] Feb, [facility] [address] [id number] [address] [place] [address], [place] [address] Feb, [facility] [address] [id number] [address] [place] [address], [place] [address] Feb, [facility] [address] [id number] [address] [place] [address], [place] [address] Jan, [facility] [address] [id number] [address] [place] [address], [place] [address] Jan, [facility] [address] [id number] [address] [place] [address], [place] [address] Jan, [facility] [address] [id number] [address] [place] [address], [place] [address] Jan, [facility] [address] [id number] [address] [place] [address], [place] [address] December, [facility] [address] [id number] [address] [place] [address], [place] [address] December, [facility] [address] [id number] [address] [place] [address], [place] [address] December, [facility] [address] [id number] [address] [place] [address], [place] [address] December, [facility] [address] [id number] [address] [place] [address], [place] [address] December, [facility] [address] [id number] [address] [place] [address], [place] [address] December, [facility] [address] [id number] [address] [place] [address], [place] [address] Oct, [facility] [address] [id number] [address] [place] [address], [place] [address] Oct, [facility] [address] [id number] [address] [place] [address], [place] [address] Sep, [facility] [address] [id number] [address] [place] [address], [place] [address] Sep, [facility] [address] [id number] [address] [place] [address], [place] [address] Aug, [facility] [address] [id number] [address] [place] [address], [place] [address] Aug, [facility] [address] [id number] [address] [place] [address], [place] [address] Jul, [facility] [address] [id number] [address] [place] [address], [place] [address] Jul, [facility] [address] [id number] [address] [place] [address], [place] [address] May, [facility] [address] [id number] [address] [place] [address], [place] [address] May, [facility] [address] [id number] [address] [place] [address], [place] [address] May, [facility] [address] [id number] [address] [place] [address], [place] [address] Apr, [facility] [address] [id number] [address] [place] [address], [place] [address] Feb, [facility] [address] [id number] [address] [place] [address], [place] [address] Feb, [facility] [address] [id number] [address] [place] [address], [place] [address] Feb, [facility] [address] [id number] [address] [place] [address], [place] [address] Feb, [facility] [address] [id number] [address] [place] [address], [place] [address] Jan, [facility] [address] [id number] [address] [place] [address], [place] [address] Jan, [facility] [address] [id number] [address] [place] [address], [place] [address] December, [facility] [address] [id number] [address] [place] [address], [place] [address] Nov, [facility] [address] [id number] [address] [place] [address] [place] [address] 04 Nov, 2012 [facility] [address] [id number] [address] [place] [address], [place] [address] 13 Oct, 2012 [facility] [address] [id number] [address] [place] [address], [place] [address] 06 Oct, 2012 [facility] [address] [id number] [address] [place] [address], [place] [address] Oct, [facility] [address] [id number] [address] [place] [address], [place] [address] Aug, [facility] [address] [id number] [address] [place] [address], [place] [address] Aug, [facility] [address] [id number] [address] [place] [address], [place] [address] Jul, [facility] [address] [id number] [address] [place] [address], [place] [address] Jul, [facility] [address] [id number] [address] [place] [address], [place] [address] Jul, [facility] [address] [id number] [address] [place] [address], [place] [address] Jul, [facility] [address] [id number] [address] [place] [address], [place] [address] Jun, [facility] [address] [id number] [address] [place] [address], [place] [address] Jun, [facility] [address] [id number] [address] [place] [address], [place] [address] May, [facility] [address] [id number] [address] [place] [address], [place] [address] Mar, [facility] [address] [id number] [address] [place] [address], [place] [address] Mar, [facility] [address] [id number] [address] [place] [address], [place] [address] Jan, [facility] [address] [id number] [address] [place] [address], [place] [address] Jan, [facility] [address] [id number] [address] [place] [address], [place] [address] December, [facility] [address] [id number] [address] [place] [address], [place] [address] December, [facility] [address] [id number] [address] [place] [address], [place] [address] December, [facility] [address] [id number] [address] [place] [address], [place] [address] December, [facility] [address] [id number] [address] [place] [address], [place] [address] Sep, [facility] [address] [id number] [address] [place] [address], [place] [address] Sep, [facility] [address] [id number] [address] [place] [address], [place] [address] Jun, [facility] [address] [id number] [address] [place] [address], [place] [address] 14 Jun, 2011 [facility] [address] [id number] [address] [place] [address], [place] [address] May, [facility] [address] [id number] [address] [place] [address], [place] [address] Feb, [facility] [address] [id number] [address] [place] [address], [place] [address] Mar, [facility] [address] [id number] [address] [place] [address], [place] [address] Nov, [facility] [address] [id number] [address] [place] [address], [place] [address] 18 Sep, 2009 [facility] [address] [id number] [address] [place] [address], [place] [address] 11 Jun, 2009 [facility] [address] [id number] [address] [address] Jun, [facility] [address] [facility] [id number] [address] [place] [address] May, [facility] [address] [facility] [id number] [address] [place] [address] Mar, [facility] [address] [facility] [id number] [address] [place] [address] December, IMMUNIZATIONS No Known Immunizations SOCIAL HISTORY Never Assessed REASON FOR VISIT Anxiety concerns PLAN OF CARE VITAL SIGNS MEDICATIONS Unknown [...]
--- OUTSIDE RECORDS SUMMARY | 2020-02-28 02:39 | XMS REPORT ---
Author Author Lisy PIERRE Organization [facility] Address [address] [place] [address] Care Team Providers Care Sephora Operations Consultant Name Role Phone ROSEANN PIERRE Unavailable PROBLEMS Type Condition ICD9-CM Code PFR01-CB Code Onset Dates Condition S tatus SNOMED Code Problem Nocturnal hypoxia G47.34 Active 38 9315173 Problem Rhinitis, unspecified type J31.0 Act michael 10107858 Problem Memory loss R41.3 Active 30329753 Problem Hypertriglyceridemia E78.1 Active 063085585 Problem Colon polyp K63.5 Active 36369956 Problem Gastroesophageal reflux disease with esophagitis K 21.0 Active 533879426 Problem Other chronic gastritis without hemorrhage K29.50 Active 6472641 Problem Anxiety F41.9 Active 43136986 Problem Essential hypertension I10 Active 96907050 Problem Primary osteoarthritis, 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 Active 602698240 Problem Gastroesophageal reflux disease without esophagitis K21.9 Active 214749981 Problem Hyperlipidemia, unspecified hyperlipidemia E78.5 Active 24292506 ALLERGIES No Information ENCOUNTERS Encounter Location Date Diagnosis [facility] [id number] [place] [address] Mar, Essential hypertension I10 [facility] [address] [facility] [id number] [address] [place] [address] Feb, [facility] [address] [place] [id number] [address] [place] [address] Feb, [facility] [address] [place] [id number] [address] [place] [address] Feb, Essential hypertension I10 a nd Acute midline low back pain without sciatica M54.5 [facility] [address] [facility] [id number] [address] [place] [address] December, Insect bite (nonvenomous) of lower back and pelvis, initial encounter S30.860A and Bitten or stung by nonvenomous insect and other nonvenomous arthropods, initial encounter W57.XXXA [place] [address] [address] 09 Nov, 2017 [address] [address] Nov, [place] [address] [address] 14 Oct, 2017 Hypoxemia R09.02 and Fatigue , unspecified type R53.[address] [address] 12 Sep, 2017 Other chronic gastritis with out hemorrhage K29.50 ; Gastroesophageal reflux disease without esophagitis K21.9 ; Hyperlipidemia, unspecified hyperlipidemia E78.5 and Arthralgia, unspecified joint M25.50 [place] [address] [address] Aug, Hypertriglyceridemia E78.[address] [address] 02 May, 2017 An[address] F41.[address] [address] Apr, Hyperlipidemia, unspecified hyperlipidemia E78.5 ; Gastroesophageal reflux disease without esophagitis K21.9 ; Forgetfulness R68.89 ; Essential hypertension I10 and Anxiety F41.9 [place] [address] [address] 14 Apr, 2017 Hypertriglyceridemia E78.[address] [address] Mar, Medicare annual wellness vis it, subsequent Z00.00 ; Hyperlipidemia, unspecified hyperlipidemia E78.5 and Essential hypertension I10 [address] [address] Mar, Forgetfulness R68.89 ; Fatig ue, unspecified type R53.83 and Essential hypertension I10 [place] [address] [place] [id number] [address] [place] [address] Mar, Primary osteoarthritis, 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 and Strain of left trapezius muscle, initial encounter S46.812A [place] [address] [address] Feb, Left wrist pain M25.532 [place] [address] [address] Feb, Left wrist pain M25.532 [place] [address] [address] December, Hypertriglyceridemia E78.1 ; Encounter for immunization Z23 ; Forgetfulness R68.89 and Fatigue, unspecified type R53.83 [place] [address] [address] Jun, Forgetfulness R68.89 and Rhi nitis, unspecified type J31.0 [place] [address] [address] May, [place] [address] [address] May, Hypoxemia R09.02 ; Memory lo ss R41.3 ; Arthralgia, unspecified joint M25.50 and Rhinitis, unspecified type J31.0 [place] [address] [place] [id number] [address] [place] [address] Mar, Vertigo R42 ; Orthostatic hy potension I95.1 and Chronic gastritis without bleeding, unspecified gastritis type K29.50 [place] [address] [place] [id number] [address] [place] [address] Feb, [place] [address] [place] [id number] [address] [place] [address] Feb, Forgetfulness R68.[address] [address] Jan, [address] [address] Jan, Gastroesophageal reflux dise ase without esophagitis K21.9 ; Fatigue, unspecified type R53.83 ; Weakness R53.1 ; Forgetfulness R68.89 ; Hyperlipidemia, unspecified hyperlipidemia E78.5 and Hearing abnormally acute, unspecified laterality H93.[address] [address] Oct, [address] [address] Aug, Upper respiratory tract infe ction, unspecified type J06.[address] [address] Aug, [address] [address] Jun, Acute idiopathic gout, unspe cified site M10.00 ; Encounter for immunization Z23 ; Hyperlipidemia, unspecified hyperlipidemia E78.5 ; Gastroesophageal reflux disease without esophagitis K21.9 and Fatigue, unspecified type R53.83 [place] [id number] [address] [place] [address] Jan, Esophageal reflux 530.81 and Irritable bowel syndrome 564.[address] [address] Jan, [address] [address] Jan, Gastritis 535.50 ; Hx of col onic polyp V12.72 and Positional vertigo 386.[address] [address] Jan, [place] [id number] [address] [place] [address] 04 Jan, 2015 Dizziness 780.4 and Nausea & vomiting 787.01 [facility] [address] [id number] [address] [place] [address] Nov, [facility] [address] [id number] [address] [place] [address] Nov, [facility] [address] [id number] [address] [place] [id number] 14 Nov, 2014 [facility] [address] [id number] [address] [place] [address] Nov, [facility] [address] [id number] [address] [place] [id number] 16 Oct, 2014 [facility] [address] [id number] [address] [place] [address] Oct, [facility] [address] [id number] [address] [place] [id number] Oct, [facility] [address] [id number] [address] [place] [phone] Aug, [facility] [address] [id number] [address] [place] [address] Aug, [facility] [address] [id number] [address] [place] [phone] Aug, [facility] [address] [id number] [address] [place] [id number] Jul, [facility] [address] [id number] [address] [place] [phone] Jul, [facility] [address] [id number] [address] [place] [address] Jul, [facility] [address] [id number] [address] [place] [phone] Jul, [facility] [address] [id number] [address] [place] [phone] Jul, [facility] [address] [id number] [address] [place] [address], [place] [address] Jul, [facility] [address] [id number] [address] [place] [address], [place] [address] Jul, [facility] [address] [id number] [address] [place] [address], [place] [address] Jul, [facility] [address] [id number] [address] [place] [address], [place] [address] Jul, [facility] [address] [id number] [address] [place] [address], [place] [address] Jul, [facility] [address] [id number] [address] [place] [address], [place] [address] Jul, [facility] [address] [id number] [address] [place] [address], [place] [address] Jun, [facility] [address] [id number] [address] [place] [address], [place] [address] Jun, [facility] [address] [id number] [address] [place] [address], [place] [address] Jun, [facility] [address] [id number] [address] [place] [address], [place] [address] Jun, [facility] [address] [id number] [address] [place] [address], [place] [address] 17 Apr, 2014 [facility] [address] [id number] [address] [place] [address], [place] [address] 17 Apr, 2014 [facility] [address] [id number] [address] [place] [address], [place] [address] 17 Apr, 2014 [facility] [address] [id number] [address] [place] [address], [place] [address] 17 Apr, 2014 [facility] [address] [id number] [address] [place] [address], [place] [address] Feb, [facility] [address] [id number] [facility] [place] [address] Feb, [facility] [address] [id number] [facility] [place] [address] Feb, [facility] [address] [id number] [facility] [place] [address] Feb, [facility] [address] [id number] [address] [place] [address], [place] [address] Jan, [facility] [address] [id number] [address] [place] [address], [place] [address] Jan, [facility] [address] [id number] [address] [place] [address], [place] [address] Jan, [facility] [address] [id number] [address] [place] [address], [place] [address] Jan, [facility] [address] [id number] [address] [place] [address], [place] [address] December, [facility] [address] [id number] [address] [place] [address], [place] [address] December, [facility] [address] [id number] [address] [place] [address], [place] [address] December, [facility] [address] [id number] [address] [place] [address], [place] [address] December, [facility] [address] [id number] [address] [place] [address], [place] [address] December, [facility] [address] [id number] [address] [place] [address], [place] [address] December, [facility] [address] [id number] [address] [place] [address], [place] [address] Oct, [facility] [address] [id number] [address] [place] [address], [place] [address] Oct, [facility] [address] [id number] [address] [place] [address], [place] [address] Sep, [facility] [address] [id number] [address] [place] [address], [place] [address] Sep, [facility] [address] [id number] [address] [place] [address], [place] [address] Aug, [facility] [address] [id number] [address] [place] [address], [place] [address] Aug, [facility] [address] [id number] [address] [place] [address], [place] [address] Jul, [facility] [address] [id number] [address] [place] [address], [place] [address] Jul, [facility] [address] [id number] [address] [place] [address], [place] [address] May, [facility] [address] [id number] [address] [place] [address], [place] [address] May, [facility] [address] [id number] [address] [place] [address], [place] [address] May, [facility] [address] [id number] [address] [place] [address], [place] [address] Apr, [facility] [address] [id number] [address] [place] [address], [place] [address] Feb, [facility] [address] [id number] [address] [place] [address], [place] [address] Feb, [facility] [address] [id number] [address] [place] [address], [place] [address] Feb, [facility] [address] [id number] [address] [place] [address], [place] [address] Feb, [facility] [address] [id number] [address] [place] [address], [place] [address] Jan, [facility] [address] [id number] [address] [place] [address], [place] [address] Jan, [facility] [address] [id number] [address] [place] [address], [place] [address] December, [facility] [address] [id number] [address] [place] [address], [place] [address] 16 Nov, 2012 [facility] [address] [id number] [address] [place] [address], [place] [address] Nov, [facility] [address] [id number] [address] [place] [address], [place] [address] Oct, [facility] [address] [id number] [address] [place] [address], [place] [address] Oct, [facility] [address] [id number] [address] [place] [address], [place] [address] Oct, [facility] [address] [id number] [address] [place] [address], [place] [address] Aug, [facility] [address] [id number] [address] [place] [address], [place] [address] Aug, [facility] [address] [id number] [address] [place] [address], [place] [address] Jul, [facility] [address] [id number] [address] [place] [address], [place] [address] Jul, [facility] [address] [id number] [address] [place] [address], [place] [address] Jul, [facility] [address] [id number] [address] [place] [address], [place] [address] Jul, [facility] [address] [id number] [address] [place] [address], [place] [address] Jun, [facility] [address] [id number] [address] [place] [address], [place] [address] Jun, [facility] [address] [id number] [address] [place] [address], [place] [address] May, [facility] [address] [id number] [address] [place] [address], [place] [address] Mar, [facility] [address] [id number] [address] [place] [address], [place] [address] Mar, [facility] [address] [id number] [address] [place] [address], [place] [address] Jan, [facility] [address] [id number] [address] [place] [address], [place] [address] Jan, [facility] [address] [id number] [address] [place] [address], [place] [address] December, [facility] [address] [id number] [address] [place] [address], [place] [address] December, [facility] [address] [id number] [address] [place] [address], [place] [address] December, [facility] [address] [id number] [address] [place] [address], [place] [address] December, [facility] [address] [id number] [address] [place] [address], [place] [address] Sep, [facility] [address] [id number] [address] [place] [address], [place] [address] Sep, [facility] [address] [id number] [address] [place] [address], [place] [address] Jun, [facility] [address] [id number] [address] [place] [address], [place] [address] Jun, [facility] [address] [id number] [address] [place] [address], [place] [address] 18 May, 2011 [facility] [address] [id number] [address] [place] [address], [place] [address] Feb, [facility] [address] [id number] [address] [place] [address], [place] [address] Mar, [facility] [address] [id number] [address] [place] [address], [place] [address] Nov, [facility] [address] [id number] [address] [place] [address] Sep, [facility] [address] [facility] [id number] [address] [place] [address] Jun, [facility] [address] [facility] [id number] [address] [place] [address] Jun, [facility] [address] [facility] [id number] [address] [place] [address] May, [facility] [address] [facility] [id number] [address] [place] [address] Mar, [facility] [address] [facility] [id number] [address] [place] [address] December, IMMUNIZATIONS No Known Immunizations SOCIAL HISTORY Never Assessed REASON FOR VISIT Questions regarding Lab Results PLAN OF CARE VITAL SIGNS MEDICATIONS Unknown [...]
--- OUTSIDE RECORDS SUMMARY | 2020-02-28 02:39 | XMS REPORT ---
Author Author Lisy PIERRE Organization [facility] Address [address] [place] [address] Care Team Providers Care Blueprint Blocker Name Role Phone ROSEANN PIERRE Unavailable PROBLEMS Type Condition ICD9-CM Code XRG23-VK Code Onset Dates Condition S tatus SNOMED Code Problem Nocturnal hypoxia G47.34 Active 38 4920592 Problem Rhinitis, unspecified type J31.0 Act michael 97836939 Problem Memory loss R41.3 Active 34278145 Problem Hypertriglyceridemia E78.1 Active 604704202 Problem Colon polyp K63.5 Active 26709988 Problem Gastroesophageal reflux disease with esophagitis K 21.0 Active 238972901 Problem Other chronic gastritis without hemorrhage K29.50 Active 4080812 Problem Anxiety F41.9 Active 20451442 Problem Essential hypertension I10 Active 01141298 Problem Primary osteoarthritis, 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 Active 901906957 Problem Gastroesophageal reflux disease without esophagitis K21.9 Active 687571908 Problem Hyperlipidemia, unspecified hyperlipidemia E78.5 Active 62360788 ALLERGIES Substance Reaction Event Type Date Status Sulfamethoxazole-Trimethoprim Unknown Drug Allergy Feb, 201 8 Active Penicillin V Potassium Unknown Drug Allergy Feb, Activ e Lisinopril chronic dry cough Drug Allergy Feb, Active ENCOUNTERS Encounter Location Date Diagnosis [facility] [address] [facility] [id number] [address] [place] [address] Mar, Essential hypertension I10 [facility] [address] [facility] [id number] [address] [place] [address] Feb, [facility] [address] [facility] [id number] [address] [place] [address] Feb, [facility] [address] [facility] [id number] [address] [place] [address] Feb, Essential hypertension I10 a nd Acute midline low back pain without sciatica M54.5 [facility] [address] [address] December, Insect bite (nonvenomous) of lower back and pelvis, initial encounter S30.860A and Bitten or stung by nonvenomous insect and other nonvenomous arthropods, initial encounter W57.XXXA [place] [address] [address] Nov, Pleurisy R09.1 [place] [address] [address] Nov, [place] [address] [address] Oct, Hypoxemia R09.02 and Fatigue , unspecified type R53.83 [place] [address] [address] Sep, Other chronic gastritis with out hemorrhage K29.50 ; Gastroesophageal reflux disease without esophagitis K21.9 ; Hyperlipidemia, unspecified hyperlipidemia E78.5 and Arthralgia, unspecified joint M25.50 [place] [address] [address] Aug, Hypertriglyceridemia E78.1 [place] [address] [address] May, Anxiety F41.9 [place] [address] [address] Apr, Hyperlipidemia, unspecified hyperlipidemia E78.5 ; Gastroesophageal reflux disease without esophagitis K21.9 ; Forgetfulness R68.89 ; Essential hypertension I10 and Anxiety F41.9 [place] [address] [address] 14 Apr, 2017 Hypertriglyceridemia E78.1 [place] [address] [address] Mar, Medicare annual wellness vis it, subsequent Z00.00 ; Hyperlipidemia, unspecified hyperlipidemia E78.5 and Essential hypertension I10 [place] [address] [address] Mar, Forgetfulness R68.89 ; Fatig ue, unspecified type R53.83 and Essential hypertension I10 [place] [address] [address] Mar, Primary osteoarthritis, 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 and Strain of left trapezius muscle, initial encounter S46.812A [place] [address] [address] Feb, Left wrist pain M25.532 [place] [address] [address] 07 Feb, 2017 Left wrist pain M25.532 [place] [address] [address] December, Hypertriglyceridemia E78.1 ; Encounter for immunization Z23 ; Forgetfulness R68.89 and Fatigue, unspecified type R53.83 [place] [address] [address] Jun, Forgetfulness R68.89 and Rhi nitis, unspecified type J31.0 [place] [address] [address] May, [place] [address] [address] May, Hypoxemia R09.02 ; Memory lo ss R41.3 ; Arthralgia, unspecified joint M25.50 and Rhinitis, unspecified type J31.0 [place] [address] [place] [id number] [address] [place] [address] Mar, Vertigo R42 ; Orthostatic hy potension I95.1 and Chronic gastritis without bleeding, unspecified gastritis type K29.50 [place] [address] [place] [id number] [address] [place] [address] Feb, [facility] [address] [address] Feb, Forgetfulness R68.89 [facility] [address] [place] [id number] [place] [address] 24 Jan, 2016 [place] [address] [address] Jan, Gastroesophageal reflux dise ase without esophagitis K21.9 ; Fatigue, unspecified type R53.83 ; Weakness R53.1 ; Forgetfulness R68.89 ; Hyperlipidemia, unspecified hyperlipidemia E78.5 and Hearing abnormally acute, unspecified laterality H93.239 [place] [address] [address] Oct, [place] [address] [address] Aug, Upper respiratory tract infe ction, unspecified type J06.9 [place] [address] [address] Aug, [place] [address] [address] Jun, Acute idiopathic gout, unspe cified site M10.00 ; Encounter for immunization Z23 ; Hyperlipidemia, unspecified hyperlipidemia E78.5 ; Gastroesophageal reflux disease without esophagitis K21.9 and Fatigue, unspecified type R53.83 [place] [address] [place] [id number] [address] [place] [address] 17 Jan, 2015 Esophageal reflux 530.81 and Irritable bowel syndrome 564.1 [place] [address] [address] 15 Jan, 2015 [place] [address] [address] 10 Jan, 2015 Gastritis 535.50 ; Hx of col onic polyp V12.72 and Positional vertigo 386.11 [facility] [address] [id number] [address] [place] [address] Jan, [facility] [address] [id number] [address] [place] [address] Jan, Dizziness 780.4 and Nausea & vomiting 787.01 [facility] [address] [id number] [address] [place] [address] Nov, [facility] [address] [id number] [address] [place] [address] 28 Nov, 2014 [facility] [address] [id number] [address] [place] [address] 14 Nov, 2014 [facility] [address] [id number] [address] [place] [address] Nov, [facility] [address] [id number] [address] [place] [address] Oct, [facility] [address] [id number] [address] [place] [address] Oct, [facility] [address] [id number] [address] [place] [address] Oct, [facility] [address] [facility] [id number] [address] [place] [address] Aug, [facility] [address] [facility] [id number] [address] [place] [address] Aug, [facility] [address] [id number] [address] [place] [address] Aug, [facility] [address] [id number] [address] [place] [address] Jul, [facility] [address] [id number] [address] [place] [address] Jul, [facility] [address] [facility] [id number] [address] [place] [address] Jul, [facility] [address] [id number] [address] [place] [address], [place] [address] 11 Jul, 2014 [facility] [address] [id number] [address] [place] [address], [place] [address] Jul, [facility] [address] [id number] [address] [place] [address], [place] [address] Jul, [facility] [address] [id number] [address] [place] [address], [place] [address] Jul, [facility] [address] [id number] [address] [place] [address], [place] [address] Jul, [facility] [address] [id number] [address] [place] [address], [place] [address] Jul, [facility] [address] [id number] [address] [place] [address], [place] [address] Jul, [facility] [address] [id number] [address] [place] [address], [place] [address] Jul, [facility] [address] [id number] [address] [place] [address], [place] [address] 14 Jun, 2014 [facility] [address] [id number] [address] [place] [address], [place] [address] 14 Jun, 2014 [facility] [address] [id number] [address] [place] [address], [place] [address] Jun, [facility] [address] [id number] [address] [place] [address], [place] [address] 10 Jun, 2014 [facility] [address] [id number] [address] [place] [address], [place] [address] 17 Apr, 2014 [facility] [address] [id number] [address] [place] [address], [place] [address] 17 Apr, 2014 [facility] [address] [id number] [address] [place] [address], [place] [address] 17 Apr, 2014 [facility] [address] [id number] [address] [place] [address], [place] [address] Apr, [facility] [address] [id number] [facility] [place] [address] Feb, [facility] [address] [id number] [address] [place] [address], [place] [address] Feb, [facility] [address] [id number] [facility] [place] [address] Feb, [facility] [address] [id number] [address] [place] [address], [place] [address] Feb, [facility] [address] [id number] [address] [place] [address], [place] [address] Jan, [facility] [address] [id number] [address] [place] [address], [place] [address] Jan, [facility] [address] [id number] [address] [place] [address], [place] [address] Jan, [facility] [address] [id number] [address] [place] [address], [place] [address] Jan, [facility] [address] [id number] [address] [place] [address], [place] [address] December, [facility] [address] [id number] [address] [place] [address], [place] [address] December, [facility] [address] [id number] [address] [place] [address], [place] [address] December, [facility] [address] [id number] [address] [place] [address], [place] [address] December, [facility] [address] [id number] [address] [place] [address], [place] [address] December, [facility] [address] [id number] [address] [place] [address], [place] [address] December, [facility] [address] [id number] [address] [place] [address], [place] [address] Oct, [facility] [address] [id number] [address] [place] [address], [place] [address] Oct, [facility] [address] [id number] [address] [place] [address], [place] [address] Sep, [facility] [address] [id number] [address] [place] [address], [place] [address] Sep, [facility] [address] [id number] [address] [place] [address], [place] [address] Aug, [facility] [address] [id number] [address] [place] [address], [place] [address] Aug, [facility] [address] [id number] [address] [place] [address], [place] [address] Jul, [facility] [address] [id number] [address] [place] [address], [place] [address] Jul, [facility] [address] [id number] [address] [place] [address], [place] [address] May, [facility] [address] [id number] [address] [place] [address], [place] [address] May, [facility] [address] [id number] [address] [place] [address], [place] [address] May, [facility] [address] [id number] [address] [place] [address], [place] [address] Apr, [facility] [address] [id number] [address] [place] [address], [place] [address] Feb, [facility] [address] [id number] [address] [place] [address], [place] [address] Feb, [facility] [address] [id number] [address] [place] [address], [place] [address] Feb, [facility] [address] [id number] [address] [place] [address], [place] [address] Feb, [facility] [address] [id number] [address] [place] [address], [place] [address] Jan, [facility] [address] [id number] [address] [place] [address], [place] [address] Jan, [facility] [address] [id number] [address] [place] [address], [place] [address] December, [facility] [address] [id number] [address] [place] [address], [place] [address] Nov, [facility] [address] [id number] [address] [place] [address], [place] [address] Nov, [facility] [address] [id number] [address] [place] [address], [place] [address] Oct, [facility] [address] [id number] [address] [place] [address], [place] [address] 06 Oct, 2012 [facility] [address] [id number] [address] [place] [address], [place] [address] Oct, [facility] [address] [id number] [address] [place] [address], [place] [address] Aug, [facility] [address] [id number] [address] [place] [address], [place] [address] Aug, [facility] [address] [id number] [address] [place] [address], [place] [address] Jul, [facility] [address] [id number] [address] [place] [address], [place] [address] Jul, [facility] [address] [id number] [address] [place] [address], [place] [address] Jul, [facility] [address] [id number] [address] [place] [address], [place] [address] Jul, [facility] [address] [id number] [address] [place] [address], [place] [address] Jun, [facility] [address] [id number] [address] [place] [address], [place] [address] Jun, [facility] [address] [id number] [address] [place] [address], [place] [address] May, [facility] [address] [id number] [address] [place] [address], [place] [address] Mar, [facility] [address] [id number] [address] [place] [address], [place] [address] Mar, [facility] [address] [id number] [address] [place] [address], [place] [address] Jan, [facility] [address] [id number] [address] [place] [address], [place] [address] Jan, [facility] [address] [id number] [address] [place] [address], [place] [address] December, [facility] [address] [id number] [address] [place] [address], [place] [address] December, [facility] [address] [id number] [address] [place] [address], [place] [address] December, [facility] [address] [id number] [address] [place] [address], [place] [address] December, [facility] [address] [id number] [address] [place] [address], [place] [address] Sep, [facility] [address] [id number] [address] [place] [address], [place] [address] Sep, [facility] [address] [id number] [address] [place] [address], [place] [address] 14 Jun, 2011 [facility] [address] [id number] [address] [place] [address], [place] [address] 14 Jun, 2011 [facility] [address] [id number] [address] [place] [address], [place] [address] 18 May, 2011 [facility] [address] [id number] [address] [place] [address], [place] [address] Feb, [facility] [address] [id number] [address] [place] [address], [place] [address] 10 Mar, 2010 [facility] [address] [id number] [address] [place] [address] Nov, [facility] [address] [id number] [address] [place] [address] Sep, [facility] [address] [id number] [address] [place] [address] Jun, [facility] [address] [id number] [address] [place] [address] Jun, [facility] [address] [id number] [address] [place] [address] May, [facility] [address] [facility] [id number] [address] [place] [address] Mar, [facility] [address] [facility] [id number] [address] [place] [address] December, IMMUNIZATIONS No Known Immunizations SOCIAL HISTORY Never Assessed REASON FOR VISIT blood pressure, -siva DORSEY , PT reports she woke up on Sunday 02/11 with lower b ack pain and has since then worsened. PT denies any known injury. PT notes that she was worried it could be her kidneys and has been trying to drink more water to help flush her system. -Siva DORSEY PLAN OF CARE Activity Details Follow Up 3 Months Reason:BP VITAL SIGNS Height 64 in 2018-02-18 Weight 128.3 lbs 2018-02-18 Temperature 98.0 degrees Fahrenheit 2018-02-18 Heart Rate 102 bpm 2018-02-18 Respiratory Rate 20 2018-02-18 Oximetry on room air:98 % 2018-02-18 BMI 22.02 kg/m2 2018-02-18 Blood pressure systolic 160 mmHg 2018-02-18 Blood pressure diastolic 72 mmHg 2018-02-18 MEDICATIONS Medication Instructions Dosage Frequency Start Date End Date Duration S luigi Aspir-81 81 MG Orally Once a day 1 tablet 24h Active Fluticasone Propionate 50 MCG/ACT Nasally twice a day 1 spray in each nostril 12h 10 May, 2016 Active Calcium + D3 600-200 MG-UNIT Orally Once a day 1 tablet with a meal 24h Active Famotidine 20 mg Orally twice a day 1 tablet 12h Apr, 30 Active Tylenol Active Lisinopril 5 mg Orally Once a day 1 tablet 24h 16 Feb, 2018 30 day(s) Active Multi Vitamin/Minerals - Active BuPROPion HCl ER (SR) 200 mg Orally Twice a day 1 tablet 12h 90 Active RESULTS No Results PROCEDURES Procedure Date Ordered Result Body Site LAB NOT BILLED BY [facility] February 18, 2018 URINALYSIS, AUTO, W/O SCOPE February 18, 2018 [facility] VISIT ESTABLISHED PATIENT February 18, 2018 INSTRUCTIONS MEDICATIONS ADMINISTERED No Known [...]
--- OUTSIDE RECORDS SUMMARY | 2020-02-28 02:39 | XMS REPORT ---
Author Author Lisy HANNA 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 Name Role Phone FREDDY HANNA Unavailable PROBLEMS Type Condition ICD9-CM Code CRF05-YH Code Onset Dates Condition S tatus SNOMED Code Problem Nocturnal hypoxia G47.34 Active 38 5074248 Problem Rhinitis, unspecified type J31.0 Act michael 05187643 Problem Memory loss R41.3 Active 67221332 Problem Hypertriglyceridemia E78.1 Active 754839363 Problem Colon polyp K63.5 Active 59573697 Problem Gastroesophageal reflux disease with esophagitis K 21.0 Active 781686800 Problem Other chronic gastritis without hemorrhage K29.50 Active 6594917 Problem Anxiety F41.9 Active 86828549 Problem Essential hypertension I10 Active 15455538 Problem Primary osteoarthritis, 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 Active 694821961 Problem Gastroesophageal reflux disease without esophagitis K21.9 Active 344202287 Problem Hyperlipidemia, unspecified hyperlipidemia E78.5 Active 70277373 ALLERGIES Substance Reaction Event Type Date Status Sulfamethoxazole-Trimethoprim Unknown Drug Allergy December, 8 Active Penicillin V Potassium Unknown Drug Allergy December, Activ e Lisinopril chronic dry cough Drug Allergy December, Active ENCOUNTERS Encounter Location Date Diagnosis [facility] [address] [facility] [id number] [address] [place] [address] Feb, [facility] [address] [facility] [id number] [address] [place] [address] Feb, [facility] [address] [facility] [id number] [address] [place] [address] Feb, Essential hypertension I10 a nd Acute midline low back pain without sciatica M54.5 [facility] [address] [facility] [id number] [address] [place] [address] December, Insect bite (nonvenomous) of lower back and pelvis, initial encounter S30.860A and Bitten or stung by nonvenomous insect and other nonvenomous arthropods, initial encounter W57.XXXA [address] [address] Nov, Pleurisy R09.[address] [address] Nov, [address] [address] Oct, Hypoxemia R09.02 and Fatigue , unspecified type R53.[address] [address] Sep, Other chronic gastritis with out hemorrhage K29.50 ; Gastroesophageal reflux disease without esophagitis K21.9 ; Hyperlipidemia, unspecified hyperlipidemia E78.5 and Arthralgia, unspecified joint M25.[address] [address] Aug, Hypertriglyceridemia E78.[address] [address] May, Anxiety F41.[address] [address] Apr, Hyperlipidemia, unspecified hyperlipidemia E78.5 ; Gastroesophageal reflux disease without esophagitis K21.9 ; Forgetfulness R68.89 ; Essential hypertension I10 and Anxiety F41.[address] [address] 14 Apr, 2017 Hypertriglyceridemia E78.[address] [address] Mar, Medicare annual wellness vis it, subsequent Z00.00 ; Hyperlipidemia, unspecified hyperlipidemia E78.5 and Essential hypertension I10 [address] [facility] [id number] [address] [place] [address] Mar, Forgetfulness R68.89 ; Fatig ue, unspecified type R53.83 and Essential hypertension I10 [place] [address] [place] [id number] [address] [place] [address] Mar, Primary osteoarthritis, 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 and Strain of left trapezius muscle, initial encounter S46.812A [place] [address] [place] [id number] [address] [place] [address] Feb, Left wrist pain M25.532 [place] [address] [address] Feb, Left wrist pain M25.532 [place] [address] [place] [id number] [address] [place] [address] December, Hypertriglyceridemia E78.1 ; Encounter for immunization Z23 ; Forgetfulness R68.89 and Fatigue, unspecified type R53.83 [place] [address] [place] [id number] [address] [place] [address] Jun, Forgetfulness R68.89 and Rhi nitis, unspecified type J31.0 [place] [address] [place] [id number] [address] [place] [address] May, [place] [address] [place] [id number] [place] [address] May, Hypoxemia R09.02 ; Memory lo ss R41.3 ; Arthralgia, unspecified joint M25.50 and Rhinitis, unspecified type J31.0 [place] [address] [place] [id number] [address] [place] [address] Mar, Vertigo R42 ; Orthostatic hy potension I95.1 and Chronic gastritis without bleeding, unspecified gastritis type K29.50 [place] [address] [place] [id number] [address] [place] [address] Feb, [place] [address] [address] Feb, Forgetfulness R68.89 [place] [address] [address] Jan, [place] [address] [address] Jan, Gastroesophageal reflux dise ase without esophagitis K21.9 ; Fatigue, unspecified type R53.83 ; Weakness R53.1 ; Forgetfulness R68.89 ; Hyperlipidemia, unspecified hyperlipidemia E78.5 and Hearing abnormally acute, unspecified laterality H93.[address] [address] Oct, [place] [address] [address] Aug, Upper respiratory tract infe ction, unspecified type J06.[address] [address] Aug, [place] [address] [address] Jun, Acute idiopathic gout, unspe cified site M10.00 ; Encounter for immunization Z23 ; Hyperlipidemia, unspecified hyperlipidemia E78.5 ; Gastroesophageal reflux disease without esophagitis K21.9 and Fatigue, unspecified type R53.83 [place] [address] [address] 17 Jan, 2015 Esophageal reflux 530.81 and Irritable bowel syndrome 564.1 [place] [address] [address] Jan, [address] [address] Jan, Gastritis 535.50 ; Hx of col onic polyp V12.72 and Positional vertigo 386.[address] [address] Jan, [facility] [address] [id number] [address] [place] [address] Jan, Dizziness 780.4 and Nausea & vomiting 787.01 [facility] [address] [id number] [address] [place] [address] Nov, [facility] [address] [id number] [address] [place] [address] Nov, [facility] [address] [id number] [address] [place] [address] 14 Nov, 2014 [facility] [address] [id number] [address] [place] [address], [place] [address] Nov, [facility] [address] [id number] [address] [place] [address] Oct, [facility] [address] [id number] [address] [place] [address] Oct, [facility] [address] [id number] [address] [place] [address] Oct, [facility] [address] [id number] [address] [place] [address] Aug, [facility] [address] [id number] [address] [place] [address] Aug, [facility] [address] [id number] [address] [place] [address] Aug, [facility] [address] [id number] [address] [place] [address] Jul, [facility] [address] [id number] [address] [place] [address] Jul, [facility] [address] [id number] [address] [place] [address] Jul, [facility] [address] [id number] [address] [place] [address] Jul, [facility] [address] [id number] [address] [place] [address], [place] [address] 10 Jul, 2014 [facility] [address] [id number] [address] [place] [address], [place] [address] Jul, [facility] [address] [id number] [address] [place] [address], [place] [address] Jul, [facility] [address] [id number] [address] [place] [address], [place] [address] Jul, [facility] [address] [id number] [address] [place] [address], [place] [address] Jul, [facility] [address] [id number] [address] [place] [address], [place] [address] Jul, [facility] [address] [id number] [address] [place] [address], [place] [address] Jul, [facility] [address] [id number] [address] [place] [address], [place] [address] Jun, [facility] [address] [id number] [address] [place] [address], [place] [address] 14 Jun, 2014 [facility] [address] [id number] [address] [place] [address], [place] [address] Jun, [facility] [address] [id number] [address] [place] [address], [place] [address] Jun, [facility] [address] [id number] [address] [place] [address], [place] [address] 17 Apr, 2014 [facility] [address] [id number] [address] [place] [address], [place] [address] 17 Apr, 2014 [facility] [address] [id number] [address] [place] [address], [place] [address] 17 Apr, 2014 [facility] [address] [id number] [address] [place] [address], [place] [address] 17 Apr, 2014 [facility] [address] [id number] [address] [place] [address], [place] [address] Feb, [facility] [address] [id number] [facility] [place] [address] Feb, [facility] [address] [id number] [facility] [place] [address] Feb, [facility] [address] [id number] [facility] [place] [address] Feb, [facility] [address] [id number] [address] [place] [address], [place] [address] Jan, [facility] [address] [id number] [address] [place] [address], [place] [address] Jan, [facility] [address] [id number] [address] [place] [address], [place] [address] Jan, [facility] [address] [id number] [address] [place] [address], [place] [address] Jan, [facility] [address] [id number] [address] [place] [address], [place] [address] December, [facility] [address] [id number] [address] [place] [address], [place] [address] December, [facility] [address] [id number] [address] [place] [address], [place] [address] December, [facility] [address] [id number] [address] [place] [address], [place] [address] December, [facility] [address] [id number] [address] [place] [address], [place] [address] December, [facility] [address] [id number] [address] [place] [address], [place] [address] December, [facility] [address] [id number] [address] [place] [address], [place] [address] Oct, [facility] [address] [id number] [address] [place] [address], [place] [address] Oct, [facility] [address] [id number] [address] [place] [address], [place] [address] Sep, [facility] [address] [id number] [address] [place] [address], [place] [address] Sep, [facility] [address] [id number] [address] [place] [address], [place] [address] Aug, [facility] [address] [id number] [address] [place] [address], [place] [address] Aug, [facility] [address] [id number] [address] [place] [address], [place] [address] Jul, [facility] [address] [id number] [address] [place] [address], [place] [address] Jul, [facility] [address] [id number] [address] [place] [address], [place] [address] May, [facility] [address] [id number] [address] [place] [address], [place] [address] May, [facility] [address] [id number] [address] [place] [address], [place] [address] May, [facility] [address] [id number] [address] [place] [address], [place] [address] Apr, [facility] [address] [id number] [address] [place] [address], [place] [address] Feb, [facility] [address] [id number] [address] [place] [address], [place] [address] Feb, [facility] [address] [id number] [address] [place] [address], [place] [address] Feb, [facility] [address] [id number] [address] [place] [address], [place] [address] Feb, [facility] [address] [id number] [address] [place] [address], [place] [address] Jan, [facility] [address] [id number] [address] [place] [address], [place] [address] Jan, [facility] [address] [id number] [address] [place] [address], [place] [address] December, [facility] [address] [id number] [address] [place] [address], [place] [address] 16 Nov, 2012 [facility] [address] [id number] [address] [place] [address], [place] [address] Nov, [facility] [address] [id number] [address] [place] [address], [place] [address] Oct, [facility] [address] [id number] [address] [place] [address], [place] [address] Oct, [facility] [address] [id number] [address] [place] [address], [place] [address] Oct, [facility] [address] [id number] [address] [place] [address], [place] [address] Aug, [facility] [address] [id number] [address] [place] [address], [place] [address] Aug, [facility] [address] [id number] [address] [place] [address], [place] [address] Jul, [facility] [address] [id number] [address] [place] [address], [place] [address] Jul, [facility] [address] [id number] [address] [place] [address], [place] [address] Jul, [facility] [address] [id number] [address] [place] [address], [place] [address] Jul, [facility] [address] [id number] [address] [place] [address], [place] [address] Jun, [facility] [address] [id number] [address] [place] [address], [place] [address] Jun, [facility] [address] [id number] [address] [place] [address], [place] [address] May, [facility] [address] [id number] [address] [place] [address], [place] [address] Mar, [facility] [address] [id number] [address] [place] [address], [place] [address] Mar, [facility] [address] [id number] [address] [place] [address], [place] [address] Jan, [facility] [address] [id number] [address] [place] [address], [place] [address] Jan, [facility] [address] [id number] [address] [place] [address], [place] [address] December, [facility] [address] [id number] [address] [place] [address], [place] [address] December, [facility] [address] [id number] [address] [place] [address], [place] [address] December, [facility] [address] [id number] [address] [place] [address], [place] [address] December, [facility] [address] [id number] [address] [place] [address], [place] [address] Sep, [facility] [address] [id number] [address] [place] [address], [place] [address] Sep, [facility] [address] [id number] [address] [place] [address], [place] [address] Jun, [facility] [address] [id number] [address] [place] [address], [place] [address] 14 Jun, 2011 [facility] [address] [id number] [address] [place] [address], [place] [address] 18 May, 2011 [facility] [address] [id number] [address] [place] [address], [place] [address] Feb, [facility] [address] [id number] [address] [place] [address], [place] [address] 10 Mar, 2010 [facility] [address] [id number] [address] [place] [address], [place] [address] Nov, [facility] [address] [id number] [address] [place] [address] Sep, [facility] [address] [facility] [id number] [address] [place] [address] Jun, [facility] [address] [facility] [id number] [address] [place] [address] Jun, [facility] [address] [facility] [id number] [address] [place] [address] May, [facility] [address] [facility] [id number] [address] [place] [address] Mar, [facility] [address] [facility] [id number] [address] [place] [address] December, IMMUNIZATIONS No Known Immunizations SOCIAL HISTORY Never Assessed REASON FOR VISIT tick removed from back this morning JStrasserRN PLAN OF CARE Activity Details Follow Up prn Reason: VITAL SIGNS Height 64 in 2018-01-01 Weight 130.2 lbs 2018-01-01 Temperature 98.0 degrees Fahrenheit 2018-01-01 Heart Rate 112 bpm 2018-01-01 Respiratory Rate 20 2018-01-01 BMI 22.35 kg/m2 2018-01-01 Blood pressure systolic 172 mmHg 2018-01-01 Blood pressure diastolic 88 mmHg 2018-01-01 MEDICATIONS Medication Instructions Dosage Frequency Start Date End Date Duration S luigi Aspir-81 81 MG Orally Once a day 1 tablet 24h Active BuPROPion HCl ER (SR) 200 mg Orally Twice a day 1 tablet 12h 90 Active Fluticasone Propionate 50 MCG/ACT Nasally twice a day 1 spray in each nostril 12h 10 May, 2016 Active Calcium + D3 600-200 MG-UNIT Orally Once a day 1 tablet with a meal 24h Active Multi Vitamin/Minerals - Active Famotidine 20 mg Orally twice a day 1 tablet 12h Apr, 30 Active RESULTS No Results PROCEDURES Procedure Date Ordered Result Body Site [facility] VISIT ESTABLISHED PATIENT January 01, 2018 INSTRUCTIONS MEDICATIONS ADMINISTERED No Known Medications [...]
--- OUTSIDE RECORDS SUMMARY | 2020-02-28 02:40 | XMS REPORT ---
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 Name Role Phone ROSEANN PIERRE Unavailable PROBLEMS Type Condition ICD9-CM Code LGP23-MX Code Onset Dates Condition S tatus SNOMED Code Problem Nocturnal hypoxia G47.34 Active 38 6983066 Problem Rhinitis, unspecified type J31.0 Act michael 83651414 Problem Memory loss R41.3 Active 56076258 Problem Hypertriglyceridemia E78.1 Active 625471338 Problem Colon polyp K63.5 Active 00711658 Problem Gastroesophageal reflux disease with esophagitis K 21.0 Active 380054211 Problem Other chronic gastritis without hemorrhage K29.50 Active 4285803 Problem Anxiety F41.9 Active 04425433 Problem Essential hypertension I10 Active 24976022 Problem Primary osteoarthritis, 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 Active 775353123 Problem Gastroesophageal reflux disease without esophagitis K21.9 Active 451033337 Problem Hyperlipidemia, unspecified hyperlipidemia E78.5 Active 69426171 ALLERGIES Substance Reaction Event Type Date Status Sulfamethoxazole-Trimethoprim Unknown Drug Allergy Apr, 201 7 Active Penicillin V Potassium Unknown Drug Allergy Apr, Activ e Lisinopril chronic dry cough Drug Allergy Apr, Active ENCOUNTERS Encounter Location Date Diagnosis [facility] [address] [facility] [id number] [address] [place] [address] Nov, Pleurisy R09.1 [facility] [address] [facility] [id number] [address] [place] [address] Nov, [place] [id number] [facility] [id number] [address] [place] [address] Oct, Hypoxemia R09.02 and Fatigue , unspecified type R53.83 [facility] [address] [facility] [id number] [address] [place] [address] Sep, Other chronic gastritis with out hemorrhage K29.50 ; Gastroesophageal reflux disease without esophagitis K21.9 ; Hyperlipidemia, unspecified hyperlipidemia E78.5 and Arthralgia, unspecified joint M25.50 [place] [address] [place] [id number] [address] [place] [address] Aug, Hypertriglyceridemia E78.1 [place] [address] [address] May, Anxiety F41.9 [place] [address] [address] Apr, Hyperlipidemia, unspecified hyperlipidemia E78.5 ; Gastroesophageal reflux disease without esophagitis K21.9 ; Forgetfulness R68.89 ; Essential hypertension I10 and Anxiety F41.9 [place] [address] [address] Apr, Hypertriglyceridemia E78.1 [place] [address] [address] Mar, Medicare annual wellness vis it, subsequent Z00.00 ; Hyperlipidemia, unspecified hyperlipidemia E78.5 and Essential hypertension I10 [place] [address] [address] Mar, Forgetfulness R68.89 ; Fatig ue, unspecified type R53.83 and Essential hypertension I10 [place] [address] [address] Mar, Primary osteoarthritis, 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 and Strain of left trapezius muscle, initial encounter S46.812A [place] [address] [address] Feb, Left wrist pain M25.532 [place] [address] [place] [id number] [place] [address] Feb, Left wrist pain M25.532 [place] [address] [address] December, Hypertriglyceridemia E78.1 ; Encounter for immunization Z23 ; Forgetfulness R68.89 and Fatigue, unspecified type R53.83 [place] [address] [address] Jun, Forgetfulness R68.89 and Rhi nitis, unspecified type J31.0 [place] [address] [address] May, [place] [address] [address] May, Hypoxemia R09.02 ; Memory lo ss R41.3 ; Arthralgia, unspecified joint M25.50 and Rhinitis, unspecified type J31.0 [place] [address] [address] Mar, Vertigo R42 ; Orthostatic hy potension I95.1 and Chronic gastritis without bleeding, unspecified gastritis type K29.50 [place] [address] [address] Feb, [place] [address] [address] Feb, Forgetfulness R68.89 [place] [address] [address] Jan, [place] [address] [address] Jan, Gastroesophageal reflux dise ase without esophagitis K21.9 ; Fatigue, unspecified type R53.83 ; Weakness R53.1 ; Forgetfulness R68.89 ; Hyperlipidemia, unspecified hyperlipidemia E78.5 and Hearing abnormally acute, unspecified laterality H93.239 [place] [address] [address] Oct, [place] [address] [address] Aug, Upper respiratory tract infe ction, unspecified type J06.9 [place] [address] [address] Aug, [facility] [address] [address] Jun, Acute idiopathic gout, unspe cified site M10.00 ; Encounter for immunization Z23 ; Hyperlipidemia, unspecified hyperlipidemia E78.5 ; Gastroesophageal reflux disease without esophagitis K21.9 and Fatigue, unspecified type R53.83 [place] [address] [address] 17 Jan, 2015 Esophageal reflux 530.81 and Irritable bowel syndrome 564.1 [place] [address] [address] 15 Jan, 2015 [place] [address] [address] 10 Jan, 2015 Gastritis 535.50 ; Hx of col onic polyp V12.72 and Positional vertigo 386.11 [place] [address] [address] 09 Jan, 2015 [place] [address] [address] 04 Jan, 2015 Dizziness 780.4 and Nausea & vomiting 787.01 [place] [address] [address] Nov, [place] [address] [address] Nov, [place] [address] [address] 14 Nov, 2014 [place] [address] [address] 13 Nov, 2014 [place] [address] [address] Oct, [facility] [address] [id number] [address] [place] [address], [place] [address] Oct, [facility] [address] [id number] [address] [place] [address], [place] [address] Oct, [facility] [address] [id number] [address] [place] [address], [place] [address] Aug, [facility] [address] [id number] [address] [place] [address], [place] [address] Aug, [facility] [address] [id number] [address] [place] [address], [place] [address] Aug, [facility] [address] [id number] [address] [place] [address], [place] [address] Jul, [facility] [address] [id number] [address] [place] [address], [place] [address] Jul, [facility] [address] [id number] [address] [place] [address], [place] [address] Jul, [facility] [address] [id number] [address] [place] [address], [place] [address] Jul, [facility] [address] [id number] [address] [place] [address], [place] [address] Jul, [facility] [address] [id number] [address] [place] [address], [place] [address] Jul, [facility] [address] [id number] [address] [place] [address], [place] [address] Jul, [facility] [address] [id number] [address] [place] [address], [place] [address] Jul, [facility] [address] [id number] [address] [place] [address], [place] [address] Jul, [facility] [address] [id number] [address] [place] [address], [place] [address] Jul, [facility] [address] [id number] [address] [place] [address] Jul, [facility] [address] [id number] [address] [place] [address], [place] [address] Jun, [facility] [address] [id number] [address] [place] [address], [place] [address] 14 Jun, 2014 [facility] [address] [id number] [address] [place] [address], [place] [address] Jun, [facility] [address] [id number] [address] [place] [address], [place] [address] 10 Jun, 2014 [facility] [address] [id number] [address] [place] [address], [place] [address] 17 Apr, 2014 [facility] [address] [id number] [address] [place] [address], [place] [address] 17 Apr, 2014 [facility] [address] [id number] [address] [place] [address], [place] [address] 17 Apr, 2014 [facility] [address] [id number] [address] [place] [address], [place] [address] 17 Apr, 2014 [facility] [address] [id number] [address] [place] [address], [place] [address] Feb, [facility] [address] [id number] [address] [place] [address], [place] [address] Feb, [facility] [address] [id number] [address] [place] [address], [place] [address] Feb, [facility] [address] [id number] [address] [place] [address], [place] [address] Feb, [facility] [address] [id number] [address] [place] [address], [place] [address] Jan, [facility] [address] [id number] [address] [place] [address], [place] [address] Jan, [facility] [address] [id number] [address] [place] [address], [place] [address] Jan, [facility] [address] [id number] [address] [place] [address], [place] [address] Jan, [facility] [address] [id number] [address] [place] [address], [place] [address] December, [facility] [address] [id number] [address] [place] [address], [place] [address] December, [facility] [address] [id number] [address] [place] [address], [place] [address] December, [facility] [address] [id number] [address] [place] [address], [place] [address] December, [facility] [address] [id number] [address] [place] [address], [place] [address] December, [facility] [address] [id number] [address] [place] [address], [place] [address] December, [facility] [address] [id number] [address] [place] [address], [place] [address] Oct, [facility] [address] [id number] [address] [place] [address], [place] [address] Oct, [facility] [address] [id number] [address] [place] [address], [place] [address] Sep, [facility] [address] [id number] [address] [place] [address], [place] [address] Sep, [facility] [address] [id number] [address] [place] [address], [place] [address] Aug, [facility] [address] [id number] [address] [place] [address], [place] [address] Aug, [facility] [address] [id number] [address] [place] [address], [place] [address] Jul, [facility] [address] [id number] [address] [place] [address], [place] [address] Jul, [facility] [address] [id number] [address] [place] [address], [place] [address] May, [facility] [address] [id number] [address] [place] [address], [place] [address] May, [facility] [address] [id number] [address] [place] [address], [place] [address] May, [facility] [address] [id number] [address] [place] [address], [place] [address] Apr, [facility] [address] [id number] [address] [place] [address], [place] [address] Feb, [facility] [address] [id number] [address] [place] [address], [place] [address] Feb, [facility] [address] [id number] [address] [place] [address], [place] [address] Feb, [facility] [address] [id number] [address] [place] [address], [place] [address] Feb, [facility] [address] [id number] [address] [place] [address], [place] [address] Jan, [facility] [address] [id number] [address] [place] [address], [place] [address] Jan, [facility] [address] [id number] [address] [place] [address], [place] [address] December, [facility] [address] [id number] [address] [place] [address], [place] [address] Nov, [facility] [address] [id number] [address] [place] [address], [place] [address] Nov, [facility] [address] [id number] [address] [place] [address], [place] [address] Oct, [facility] [address] [id number] [address] [place] [address], [place] [address] 06 Oct, 2012 [facility] [address] [id number] [address] [place] [address], [place] [address] Oct, [facility] [address] [id number] [address] [place] [address], [place] [address] Aug, [facility] [address] [id number] [address] [place] [address], [place] [address] Aug, [facility] [address] [id number] [address] [place] [address], [place] [address] Jul, [facility] [address] [id number] [address] [place] [address], [place] [address] Jul, [facility] [address] [id number] [address] [place] [address], [place] [address] Jul, [facility] [address] [id number] [address] [place] [address], [place] [address] Jul, [facility] [address] [id number] [address] [place] [address], [place] [address] Jun, [facility] [address] [id number] [address] [place] [address], [place] [address] Jun, [facility] [address] [id number] [address] [place] [address], [place] [address] May, [facility] [address] [id number] [address] [place] [address], [place] [address] Mar, [facility] [address] [id number] [address] [place] [address], [place] [address] Mar, [facility] [address] [id number] [address] [place] [address], [place] [address] Jan, [facility] [address] [id number] [address] [place] [address], [place] [address] Jan, [facility] [address] [id number] [address] [place] [address], [place] [address] December, [facility] [address] [id number] [address] [place] [address], [place] [address] December, [facility] [address] [id number] [address] [place] [address], [place] [address] December, [facility] [address] [id number] [address] [place] [address], [place] [address] December, [facility] [address] [id number] [address] [place] [address], [place] [address] 17 Sep, 2011 [facility] [address] [id number] [address] [place] [address], [place] [address] 13 Sep, 2011 [facility] [address] [id number] [address] [place] [address], [place] [address] 14 Jun, 2011 [facility] [address] [id number] [address] [place] [address], [place] [address] 14 Jun, 2011 [facility] [address] [id number] [address] [place] [address] 18 May, 2011 [facility] [address] [id number] [address] [place] [address] Feb, [facility] [address] [id number] [address] [place] [address] Mar, [facility] [address] [id number] [address] [place] [address] Nov, [facility] [address] [id number] [address] [place] [address] 18 Sep, 2009 [facility] [address] [id number] [address] [place] [address] Jun, [facility] [address] [id number] [address] [place] [address] Jun, [facility] [address] [id number] [address] [place] [address] May, [facility] [address] [id number] [address] [place] [address] Mar, [facility] [address] [id number] [address] [place] [address] December, IMMUNIZATIONS No Known Immunizations SOCIAL HISTORY Never Assessed REASON FOR VISIT BLOOD PRESSURE, and lab work- Dimitri DORSEY PLAN OF CARE Activity Details Follow Up 3 Months Reason:BP VITAL SIGNS Height 64 in 2017-04-26 Weight 138.7 lbs 2017-04-26 Temperature 98.3 degrees Fahrenheit 2017-04-26 Heart Rate 76 bpm 2017-04-26 Respiratory Rate 18 2017-04-26 BMI 23.81 kg/m2 2017-04-26 Blood pressure systolic 152 mmHg 2017-04-26 Blood pressure diastolic 66 mmHg 2017-04-26 MEDICATIONS Medication Instructions Dosage Frequency Start Date End Date Duration S tatus Calcium + D3 600-200 MG-UNIT Orally Once a day 1 tablet with a meal 24h Active Fluticasone Propionate 50 MCG/ACT Nasally twice a day 1 spray in each nostril 12h May, Active Stool Softener 100 MG Orally Once a day 3 capsule as needed 24h Active Multi Vitamin/Minerals - Active Famotidine 20 mg Orally Once a day 1 tablet in AM 24h Apr, 90 days Active Aspir-81 81 MG Orally Once a day 1 tablet 24h Active Zetia 10 mg Orally Once a day 1 tablet 24h Apr, 30 d ay(s) Active BuPROPion HCl ER (SR) 200 mg Orally Twice a day 1 tablet 12h 90 Active Aricept 10 mg Orally Once a day 1/2 tablet 24h May, Active Simvastatin 40 MG Orally Once a day 1 tablet in the evening 24h 90 days Active RESULTS No Results PROCEDURES Procedure Date Ordered Result Body Site PENDING SALE TO [facility] VISIT ESTABLISHED PATIENT Apr 26, 2017 INSTRUCTIONS MEDICATIONS ADMINISTERED No Known Medications [...]
--- OUTSIDE RECORDS SUMMARY | 2020-02-28 02:40 | XMS REPORT ---
Author Author Lisy PIERRE Organization [facility] Address [address] [place] [address] Care Team Providers Care Manager Diabetes Name Role Phone ROSEANN PIERRE Unavailable PROBLEMS Type Condition ICD9-CM Code VFN35-AZ Code Onset Dates Condition S tatus SNOMED Code Problem Nocturnal hypoxia G47.34 Active 38 5236238 Problem Rhinitis, unspecified type J31.0 Act michael 96410883 Problem Memory loss R41.3 Active 64187066 Problem Hypertriglyceridemia E78.1 Active 859802888 Problem Colon polyp K63.5 Active 70213697 Problem Gastroesophageal reflux disease with esophagitis K 21.0 Active 316252306 Problem Other chronic gastritis without hemorrhage K29.50 Active 8751896 Problem Anxiety F41.9 Active 73922456 Problem Essential hypertension I10 Active 72346518 Problem Primary osteoarthritis, 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 Active 530736607 Problem Gastroesophageal reflux disease without esophagitis K21.9 Active 211630229 Problem Hyperlipidemia, unspecified hyperlipidemia E78.5 Active 50809344 ALLERGIES No Information ENCOUNTERS Encounter Location Date Diagnosis [place] [address] [place] [id number] [place] [address] Nov, Pleurisy R09.1 [place] [address] [place] [id number] [address] [place] [address] Nov, [place] [address] [place] [id number] [place] [address] 14 Oct, 2017 Hypoxemia R09.02 and Fatigue , unspecified type R53.83 [place] [address] [place] [id number] [address] [place] [id number] 12 Sep, 2017 Other chronic gastritis with out hemorrhage K29.50 ; Gastroesophageal reflux disease without esophagitis K21.9 ; Hyperlipidemia, unspecified hyperlipidemia E78.5 and Arthralgia, unspecified joint M25.50 [place] [address] [facility] [id number] [address] [place] [address] Aug, Hypertriglyceridemia E78.1 [place] [address] [facility] [id number] [address] [place] [address] 02 May, 2017 Anxiety F41.9 [place] [address] [facility] [id number] [address] [place] [address] Apr, Hyperlipidemia, unspecified hyperlipidemia E78.5 ; Gastroesophageal reflux disease without esophagitis K21.9 ; Forgetfulness R68.89 ; Essential hypertension I10 and Anxiety F41.9 [place] [address] [facility] [id number] [address] [place] [id number] 14 Apr, 2017 Hypertriglyceridemia E78.1 [place] [address] [place] [id number] [address] [place] [address] 30 Mar, 2017 Medicare annual wellness vis it, subsequent Z00.00 ; Hyperlipidemia, unspecified hyperlipidemia E78.5 and Essential hypertension I10 [place] [address] [facility] [id number] [address] [place] [address] Mar, Forgetfulness R68.89 ; Fatig ue, unspecified type R53.83 and Essential hypertension I10 [place] [address] [facility] [id number] [address] [place] [address] Mar, Primary osteoarthritis, 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 and Strain of left trapezius muscle, initial encounter S46.812A [place] [address] [facility] [id number] [address] [place] [address] Feb, Left wrist pain M25.532 [place] [address] [place] [id number] [address] [place] [address] Feb, Left wrist pain M25.532 [place] [address] [facility] [id number] [address] [place] [address] December, Encounter for immunization Z 23 ; Hypertriglyceridemia E78.1 ; Forgetfulness R68.89 and Fatigue, unspecified type R53.83 [place] [address] [address] Jun, Forgetfulness R68.89 and Rhi nitis, unspecified type J31.0 [place] [address] [address] May, [place] [address] [address] May, Hypoxemia R09.02 ; Memory lo ss R41.3 ; Arthralgia, unspecified joint M25.50 and Rhinitis, unspecified type J31.0 [place] [address] [address] Mar, Vertigo R42 ; Orthostatic hy potension I95.1 and Chronic gastritis without bleeding, unspecified gastritis type K29.50 [place] [address] [address] Feb, [place] [address] [address] Feb, Forgetfulness R68.89 [place] [address] [address] Jan, [place] [address] [address] Jan, Gastroesophageal reflux dise ase without esophagitis K21.9 ; Fatigue, unspecified type R53.83 ; Weakness R53.1 ; Forgetfulness R68.89 ; Hyperlipidemia, unspecified hyperlipidemia E78.5 and Hearing abnormally acute, unspecified laterality H93.239 [place] [address] [address] Oct, [place] [address] [address] Aug, Upper respiratory tract infe ction, unspecified type J06.9 [place] [address] [address] Aug, [facility] [address] [address] 11 Jun, 2015 Encounter for immunization Z 23 ; Acute idiopathic gout, unspecified site M10.00 ; Hyperlipidemia, unspecified hyperlipidemia E78.5 ; Gastroesophageal reflux disease without esophagitis K21.9 and Fatigue, unspecified type R53.[address] [address] 17 Jan, 2015 Esophageal reflux 530.81 and Irritable bowel syndrome 564.[address] [address] 15 Jan, [address] [address] 10 Jan, 2015 Gastritis 535.50 ; Hx of col onic polyp V12.72 and Positional vertigo 386.[address] [address] Jan, [place] [address] [address] 04 Jan, 2015 Dizziness 780.4 and Nausea & vomiting 787.01 [place] [address] [address] Nov, [place] [address] [address] 28 Nov, 2014 [place] [address] [address] 14 Nov, 2014 [place] [address] [address] 13 Nov, 2014 [place] [address] [address] 16 Oct, 2014 [place] [address] [address] Oct, [facility] [address] [id number] [address] [place] [address], [place] [address] Oct, [facility] [address] [id number] [address] [place] [address], [place] [address] Aug, [facility] [address] [id number] [address] [place] [address], [place] [address] Aug, [facility] [address] [id number] [address] [place] [address], [place] [address] Aug, [facility] [address] [id number] [address] [place] [address], [place] [address] Jul, [facility] [address] [id number] [address] [place] [address], [place] [address] Jul, [facility] [address] [id number] [address] [place] [address], [place] [address] Jul, [facility] [address] [id number] [address] [place] [address], [place] [address] Jul, [facility] [address] [id number] [address] [place] [address], [place] [address] Jul, [facility] [address] [id number] [address] [place] [address], [place] [address] Jul, [facility] [address] [id number] [address] [place] [address], [place] [address] Jul, [facility] [address] [id number] [address] [place] [address], [place] [address] 05 Jul, 2014 [facility] [address] [id number] [address] [place] [address], [place] [address] 05 Jul, 2014 [facility] [address] [id number] [address] [place] [address], [place] [address] Jul, [facility] [address] [id number] [address] [place] [address], [place] [address] Jul, [facility] [address] [id number] [address] [place] [address], [place] [address] 14 Jun, 2014 [facility] [address] [id number] [address] [place] [address], [place] [address] 14 Jun, 2014 [facility] [address] [id number] [address] [place] [address], [place] [address] Jun, [facility] [address] [id number] [address] [place] [address], [place] [address] 10 Jun, 2014 [facility] [address] [id number] [address] [place] [address], [place] [address] 17 Apr, 2014 [facility] [address] [id number] [address] [place] [address], [place] [address] 17 Apr, 2014 [facility] [address] [id number] [address] [place] [address], [place] [address] 17 Apr, 2014 [facility] [address] [id number] [address] [place] [address], [place] [address] 17 Apr, 2014 [facility] [address] [id number] [address] [place] [address], [place] [address] Feb, [facility] [address] [id number] [address] [place] [address], [place] [address] Feb, [facility] [address] [id number] [address] [place] [address], [place] [address] Feb, [facility] [address] [id number] [address] [place] [address], [place] [address] Feb, [facility] [address] [id number] [address] [place] [address], [place] [address] Jan, [facility] [address] [id number] [address] [place] [address], [place] [address] Jan, [facility] [address] [id number] [address] [place] [address], [place] [address] Jan, [facility] [address] [id number] [address] [place] [address], [place] [address] Jan, [facility] [address] [id number] [address] [place] [address] December, [facility] [address] [id number] [address] [place] [address], [place] [address] December, [facility] [address] [id number] [address] [place] [address], [place] [address] December, [facility] [address] [id number] [address] [place] [address], [place] [address] December, [facility] [address] [id number] [address] [place] [address], [place] [address] December, [facility] [address] [id number] [address] [place] [address], [place] [address] December, [facility] [address] [id number] [address] [place] [address], [place] [address] Oct, [facility] [address] [id number] [address] [place] [address], [place] [address] Oct, [facility] [address] [id number] [address] [place] [address], [place] [address] Sep, [facility] [address] [id number] [address] [place] [address], [place] [address] Sep, [facility] [address] [id number] [address] [place] [address], [place] [address] Aug, [facility] [address] [id number] [address] [place] [address], [place] [address] Aug, [facility] [address] [id number] [address] [place] [address], [place] [address] Jul, [facility] [address] [id number] [address] [place] [address], [place] [address] Jul, [facility] [address] [id number] [address] [place] [address], [place] [address] May, [facility] [address] [id number] [address] [place] [address], [place] [address] May, [facility] [address] [id number] [address] [place] [address], [place] [address] May, [facility] [address] [id number] [address] [place] [address], [place] [address] Apr, [facility] [address] [id number] [address] [place] [address], [place] [address] Feb, [facility] [address] [id number] [address] [place] [address], [place] [address] Feb, [facility] [address] [id number] [address] [place] [address], [place] [address] Feb, [facility] [address] [id number] [address] [place] [address], [place] [address] Feb, [facility] [address] [id number] [address] [place] [address], [place] [address] Jan, [facility] [address] [id number] [address] [place] [address], [place] [address] Jan, [facility] [address] [id number] [address] [place] [address], [place] [address] December, [facility] [address] [id number] [address] [place] [address], [place] [address] Nov, [facility] [address] [id number] [address] [place] [address], [place] [address] Nov, [facility] [address] [id number] [address] [place] [address], [place] [address] Oct, [facility] [address] [id number] [address] [place] [address], [place] [address] 06 Oct, 2012 [facility] [address] [id number] [address] [place] [address], [place] [address] 04 Oct, 2012 [facility] [address] [id number] [address] [place] [address], [place] [address] Aug, [facility] [address] [id number] [address] [place] [address] [address] Aug, [facility] [address] [id number] [address] [place] [address], [place] [address] Jul, [facility] [address] [id number] [address] [place] [address], [place] [address] Jul, [facility] [address] [id number] [address] [place] [address], [place] [address] Jul, [facility] [address] [id number] [address] [place] [address], [place] [address] Jul, [facility] [address] [id number] [address] [place] [address], [place] [address] Jun, [facility] [address] [id number] [address] [place] [address], [place] [address] Jun, [facility] [address] [id number] [address] [place] [address], [place] [address] May, [facility] [address] [id number] [address] [place] [address], [place] [address] Mar, [facility] [address] [id number] [address] [place] [address], [place] [address] Mar, [facility] [address] [id number] [address] [place] [address], [place] [address] Jan, [facility] [address] [id number] [address] [place] [address], [place] [address] Jan, [facility] [address] [id number] [address] [place] [address], [place] [address] December, [facility] [address] [id number] [address] [place] [address], [place] [address] December, [facility] [address] [id number] [address] [place] [address], [place] [address] December, [facility] [address] [id number] [address] [place] [address], [place] [address] December, [facility] [address] [id number] [address] [place] [address] 17 Sep, 2011 [facility] [address] [id number] [address] [place] [address] 13 Sep, 2011 [facility] [address] [id number] [address] [place] [address] 14 Jun, 2011 [facility] [address] [id number] [address] [place] [address] 14 Jun, 2011 [facility] [address] [id number] [address] [place] [address] 18 May, 2011 [facility] [address] [id number] [address] [place] [address] Feb, [facility] [address] [id number] [address] [place] [address] Mar, [facility] [address] [id number] [address] [place] [address] Nov, [facility] [address] [id number] [address] [place] [address] 18 Sep, 2009 [facility] [address] [id number] [address] [place] [address] Jun, [facility] [address] [id number] [address] [place] [address] Jun, [facility] [address] [id number] [address] [place] [id number] May, [facility] [address] [id number] [address] [place] [address] Mar, [facility] [address] [id number] [address] [place] [address] December, IMMUNIZATIONS No Known Immunizations SOCIAL HISTORY Never Assessed REASON FOR VISIT Medication refill request PLAN OF CARE VITAL SIGNS MEDICATIONS Medication Instructions Dosage Frequency Start Date End Date Duration S tatus BuPROPion HCl ER (SR) 200 mg Orally Twice a day 1 tablet 12h 90 Active RESULTS No Results PROCEDURES No Known [...]
--- OUTSIDE RECORDS SUMMARY | 2020-02-28 02:40 | XMS REPORT ---
Author Author Lisy PIERRE Organization [facility] Address [address] [place] [address] Care Team Providers Care Conference Producer Name Role Phone ROSEANN PIERRE Unavailable PROBLEMS Type Condition ICD9-CM Code IAQ23-FY Code Onset Dates Condition S tatus SNOMED Code Problem Nocturnal hypoxia G47.34 Active 38 3670977 Problem Rhinitis, unspecified type J31.0 Act michael 06901815 Problem Memory loss R41.3 Active 74571792 Problem Hypertriglyceridemia E78.1 Active 451767960 Problem Colon polyp K63.5 Active 42610646 Problem Gastroesophageal reflux disease with esophagitis K 21.0 Active 287689962 Problem Other chronic gastritis without hemorrhage K29.50 Active 9742295 Problem Anxiety F41.9 Active 26834803 Problem Essential hypertension I10 Active 84532329 Problem Primary osteoarthritis, 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 Active 723493599 Problem Gastroesophageal reflux disease without esophagitis K21.9 Active 301124002 Problem Hyperlipidemia, unspecified hyperlipidemia E78.5 Active 19698243 ALLERGIES No Information ENCOUNTERS Encounter Location Date Diagnosis [place] [address] [place] [id number] [address] [place] [address] Nov, Pleurisy R09.1 [place] [address] [place] [id number] [address] [place] [address] Nov, [place] [address] [place] [id number] [address] [place] [address] 14 Oct, 2017 Hypoxemia R09.02 and Fatigue , unspecified type R53.83 [place] [address] [place] [id number] [address] [place] [address] 12 Sep, 2017 Other chronic gastritis with out hemorrhage K29.50 ; Gastroesophageal reflux disease without esophagitis K21.9 ; Hyperlipidemia, unspecified hyperlipidemia E78.5 and Arthralgia, unspecified joint M25.50 [place] [address] [address] [facility] [id number] [address] [place] [address] Aug, Hypertriglyceridemia E78.1 [place] [address] [address] [facility] [id number] [address] [place] [address] 02 May, 2017 Anxiety F41.9 [place] [address] [address] [facility] [id number] [address] [place] [address] Apr, Hyperlipidemia, unspecified hyperlipidemia E78.5 ; Gastroesophageal reflux disease without esophagitis K21.9 ; Forgetfulness R68.89 ; Essential hypertension I10 and Anxiety F41.9 [place] [address] [address] [facility] [id number] [address] [place] [address] 14 Apr, 2017 Hypertriglyceridemia E78.1 [place] [address] [place] [id number] [address] [place] [address] 30 Mar, 2017 Medicare annual wellness vis it, subsequent Z00.00 ; Hyperlipidemia, unspecified hyperlipidemia E78.5 and Essential hypertension I10 [place] [address] [address] [facility] [id number] [address] [place] [address] Mar, Forgetfulness R68.89 ; Fatig ue, unspecified type R53.83 and Essential hypertension I10 [place] [address] [address] [facility] [id number] [address] [place] [address] Mar, Primary osteoarthritis, 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 and Strain of left trapezius muscle, initial encounter S46.812A [place] [address] [address] [facility] [id number] [address] [place] [address] Feb, Left wrist pain M25.532 [place] [address] [place] [id number] [address] [place] [address] Feb, Left wrist pain M25.532 [place] [address] [address] [facility] [id number] [address] [place] [address] December, Encounter for immunization Z 23 ; Hypertriglyceridemia E78.1 ; Forgetfulness R68.89 and Fatigue, unspecified type R53.83 [place] [address] [address] Jun, Forgetfulness R68.89 and Rhi nitis, unspecified type J31.0 [place] [address] [address] May, [place] [address] [address] May, Hypoxemia R09.02 ; Memory lo ss R41.3 ; Arthralgia, unspecified joint M25.50 and Rhinitis, unspecified type J31.0 [place] [address] [address] Mar, Vertigo R42 ; Orthostatic hy potension I95.1 and Chronic gastritis without bleeding, unspecified gastritis type K29.50 [place] [address] [address] Feb, [place] [address] [address] Feb, Forgetfulness R68.89 [place] [address] [address] Jan, [place] [address] [address] Jan, Gastroesophageal reflux dise ase without esophagitis K21.9 ; Fatigue, unspecified type R53.83 ; Weakness R53.1 ; Forgetfulness R68.89 ; Hyperlipidemia, unspecified hyperlipidemia E78.5 and Hearing abnormally acute, unspecified laterality H93.239 [place] [address] [address] Oct, [place] [address] [address] Aug, Upper respiratory tract infe ction, unspecified type J06.9 [place] [address] [address] Aug, [facility] [address] [address] 11 Jun, 2015 Encounter for immunization Z 23 ; Acute idiopathic gout, unspecified site M10.00 ; Hyperlipidemia, unspecified hyperlipidemia E78.5 ; Gastroesophageal reflux disease without esophagitis K21.9 and Fatigue, unspecified type R53.[address] [address] 17 Jan, 2015 Esophageal reflux 530.81 and Irritable bowel syndrome 564.[address] [address] 15 Jan, [address] [address] 10 Jan, 2015 Gastritis 535.50 ; Hx of col onic polyp V12.72 and Positional vertigo 386.[address] [address] Jan, [place] [address] [address] 04 Jan, 2015 Dizziness 780.4 and Nausea & vomiting 787.01 [place] [address] [address] Nov, [place] [address] [address] 28 Nov, 2014 [place] [address] [address] 14 Nov, 2014 [place] [address] [address] 13 Nov, 2014 [place] [address] [address] 16 Oct, 2014 [place] [address] [address] Oct, [facility] [address] [id number] [address] [place] [address], [place] [address] Oct, [facility] [address] [id number] [address] [place] [address], [place] [address] Aug, [facility] [address] [id number] [address] [place] [address], [place] [address] Aug, [facility] [address] [id number] [address] [place] [address], [place] [address] Aug, [facility] [address] [id number] [address] [place] [address], [place] [address] Jul, [facility] [address] [id number] [address] [place] [address], [place] [address] Jul, [facility] [address] [id number] [address] [place] [address], [place] [address] Jul, [facility] [address] [id number] [address] [place] [address], [place] [address] Jul, [facility] [address] [id number] [address] [place] [address], [place] [address] Jul, [facility] [address] [id number] [address] [place] [address], [place] [address] Jul, [facility] [address] [id number] [address] [place] [address], [place] [address] Jul, [facility] [address] [id number] [address] [place] [address], [place] [address] 05 Jul, 2014 [facility] [address] [id number] [address] [place] [address], [place] [address] 05 Jul, 2014 [facility] [address] [id number] [address] [place] [address], [place] [address] Jul, [facility] [address] [id number] [address] [place] [address], [place] [address] Jul, [facility] [address] [id number] [address] [place] [address], [place] [address] 14 Jun, 2014 [facility] [address] [id number] [address] [place] [address], [place] [address] 14 Jun, 2014 [facility] [address] [id number] [address] [place] [address], [place] [address] Jun, [facility] [address] [id number] [address] [place] [address], [place] [address] 10 Jun, 2014 [facility] [address] [id number] [address] [place] [address], [place] [address] 17 Apr, 2014 [facility] [address] [id number] [address] [place] [address], [place] [address] 17 Apr, 2014 [facility] [address] [id number] [address] [place] [address], [place] [address] 17 Apr, 2014 [facility] [address] [id number] [address] [place] [address], [place] [address] 17 Apr, 2014 [facility] [address] [id number] [address] [place] [address], [place] [address] Feb, [facility] [address] [id number] [address] [place] [address], [place] [address] Feb, [facility] [address] [id number] [address] [place] [address], [place] [address] Feb, [facility] [address] [id number] [address] [place] [address], [place] [address] Feb, [facility] [address] [id number] [address] [place] [address], [place] [address] Jan, [facility] [address] [id number] [address] [place] [address], [place] [address] Jan, [facility] [address] [id number] [address] [place] [address], [place] [address] Jan, [facility] [address] [id number] [address] [place] [address], [place] [address] Jan, [facility] [address] [id number] [address] [place] [address] December, [facility] [address] [id number] [address] [place] [address], [place] [address] December, [facility] [address] [id number] [address] [place] [address], [place] [address] December, [facility] [address] [id number] [address] [place] [address], [place] [address] December, [facility] [address] [id number] [address] [place] [address], [place] [address] December, [facility] [address] [id number] [address] [place] [address], [place] [address] December, [facility] [address] [id number] [address] [place] [address], [place] [address] Oct, [facility] [address] [id number] [address] [place] [address], [place] [address] Oct, [facility] [address] [id number] [address] [place] [address], [place] [address] Sep, [facility] [address] [id number] [address] [place] [address], [place] [address] Sep, [facility] [address] [id number] [address] [place] [address], [place] [address] Aug, [facility] [address] [id number] [address] [place] [address], [place] [address] Aug, [facility] [address] [id number] [address] [place] [address], [place] [address] Jul, [facility] [address] [id number] [address] [place] [address], [place] [address] Jul, [facility] [address] [id number] [address] [place] [address], [place] [address] May, [facility] [address] [id number] [address] [place] [address], [place] [address] May, [facility] [address] [id number] [address] [place] [address], [place] [address] May, [facility] [address] [id number] [address] [place] [address], [place] [address] Apr, [facility] [address] [id number] [address] [place] [address], [place] [address] Feb, [facility] [address] [id number] [address] [place] [address], [place] [address] Feb, [facility] [address] [id number] [address] [place] [address], [place] [address] Feb, [facility] [address] [id number] [address] [place] [address], [place] [address] Feb, [facility] [address] [id number] [address] [place] [address], [place] [address] Jan, [facility] [address] [id number] [address] [place] [address], [place] [address] Jan, [facility] [address] [id number] [address] [place] [address], [place] [address] December, [facility] [address] [id number] [address] [place] [address], [place] [address] Nov, [facility] [address] [id number] [address] [place] [address], [place] [address] Nov, [facility] [address] [id number] [address] [place] [address], [place] [address] Oct, [facility] [address] [id number] [address] [place] [address], [place] [address] 06 Oct, 2012 [facility] [address] [id number] [address] [place] [address], [place] [address] 04 Oct, 2012 [facility] [address] [id number] [address] [place] [address], [place] [address] Aug, [facility] [address] [id number] [address] [place] [address] [address] Aug, [facility] [address] [id number] [address] [place] [address], [place] [address] Jul, [facility] [address] [id number] [address] [place] [address], [place] [address] Jul, [facility] [address] [id number] [address] [place] [address], [place] [address] Jul, [facility] [address] [id number] [address] [place] [address], [place] [address] Jul, [facility] [address] [id number] [address] [place] [address], [place] [address] Jun, [facility] [address] [id number] [address] [place] [address], [place] [address] Jun, [facility] [address] [id number] [address] [place] [address], [place] [address] May, [facility] [address] [id number] [address] [place] [address], [place] [address] Mar, [facility] [address] [id number] [address] [place] [address], [place] [address] Mar, [facility] [address] [id number] [address] [place] [address], [place] [address] Jan, [facility] [address] [id number] [address] [place] [address], [place] [address] Jan, [facility] [address] [id number] [address] [place] [address], [place] [address] December, [facility] [address] [id number] [address] [place] [address], [place] [address] December, [facility] [address] [id number] [address] [place] [address], [place] [address] December, [facility] [address] [id number] [address] [place] [address], [place] [address] December, [facility] [address] [id number] [address] [place] [address] 17 Sep, 2011 [facility] [address] [id number] [address] [place] [address] 13 Sep, 2011 [facility] [address] [id number] [address] [place] [address] 14 Jun, 2011 [facility] [address] [id number] [address] [place] [address] Jun, [facility] [address] [id number] [address] [place] [address] May, [facility] [address] [id number] [address] [place] [address] Feb, [facility] [address] [id number] [address] [place] [address] Mar, [facility] [address] [id number] [address] [place] [address] Nov, [facility] [address] [id number] [address] [place] [address] Sep, [facility] [address] [id number] [address] [place] [address] Jun, [facility] [address] [id number] [address] [place] [address] Jun, [facility] [address] [id number] [address] [place] [address] May, [facility] [address] [id number] [address] [place] [address] Mar, [facility] [address] [id number] [address] [place] [address] December, IMMUNIZATIONS No Known Immunizations SOCIAL HISTORY Never Assessed REASON FOR VISIT Med per Lab Results PLAN OF CARE VITAL SIGNS MEDICATIONS Medication Instructions Dosage Frequency Start Date End Date Duration S tatus Zetia 10 mg Orally Once a day 1 tablet 24h 14 Apr, 2017 30 d ay(s) Active RESULTS No Results PROCEDURES No Known [...]
--- OUTSIDE RECORDS SUMMARY | 2020-02-28 02:40 | XMS REPORT ---
Author Author Lisy PIERRE Organization [facility] Address [address] [place] [address] Care Team Providers Care Pot Pusher Name Role Phone ROSEANN PIERRE Unavailable PROBLEMS Type Condition ICD9-CM Code IET25-MN Code Onset Dates Condition S tatus SNOMED Code Problem Nocturnal hypoxia G47.34 Active 38 9225513 Problem Rhinitis, unspecified type J31.0 Act michael 66942775 Problem Memory loss R41.3 Active 48394940 Problem Hypertriglyceridemia E78.1 Active 570536912 Problem Colon polyp K63.5 Active 90103135 Problem Gastroesophageal reflux disease with esophagitis K 21.0 Active 267334817 Problem Other chronic gastritis without hemorrhage K29.50 Active 8395344 Problem Anxiety F41.9 Active 64693251 Problem Essential hypertension I10 Active 50390487 Problem Primary osteoarthritis, 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 Active 809145709 Problem Gastroesophageal reflux disease without esophagitis K21.9 Active 720055937 Problem Hyperlipidemia, unspecified hyperlipidemia E78.5 Active 43693255 ALLERGIES Substance Reaction Event Type Date Status Sulfamethoxazole-Trimethoprim Unknown Drug Allergy Oct, 201 8 Active Penicillin V Potassium Unknown Drug Allergy Oct, Activ e Lisinopril chronic dry cough Drug Allergy Oct, Active ENCOUNTERS Encounter Location Date Diagnosis [facility] [address] [facility] [id number] [address] [place] [id number] Feb, [facility] [address] [facility] [id number] [address] [place] [id number] Feb, Essential hypertension I10 a nd Acute midline low back pain without sciatica M54.5 [facility] [address] [facility] [id number] [address] [place] [address] December, Insect bite (nonvenomous) of lower back and pelvis, initial encounter S30.860A and Bitten or stung by nonvenomous insect and other nonvenomous arthropods, initial encounter W57.XXXA [place] [address] [address] Nov, Pleurisy R09.1 [place] [address] [address] Nov, [place] [address] [address] Oct, Hypoxemia R09.02 and Fatigue , unspecified type R53.[address] [address] Sep, Other chronic gastritis with out hemorrhage K29.50 ; Gastroesophageal reflux disease without esophagitis K21.9 ; Hyperlipidemia, unspecified hyperlipidemia E78.5 and Arthralgia, unspecified joint M25.50 [place] [address] [address] Aug, Hypertriglyceridemia E78.1 [place] [address] [address] May, Anxiety F41.9 [place] [address] [address] Apr, Hyperlipidemia, unspecified hyperlipidemia E78.5 ; Gastroesophageal reflux disease without esophagitis K21.9 ; Forgetfulness R68.89 ; Essential hypertension I10 and Anxiety F41.9 [place] [address] [address] Apr, Hypertriglyceridemia E78.1 [place] [address] [address] Mar, Medicare annual wellness vis it, subsequent Z00.00 ; Hyperlipidemia, unspecified hyperlipidemia E78.5 and Essential hypertension I10 [place] [address] [address] Mar, Forgetfulness R68.89 ; Fatig ue, unspecified type R53.83 and Essential hypertension I10 [place] [address] [address] [place] [id number] [address] [place] [address] Mar, Primary osteoarthritis, 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 and Strain of left trapezius muscle, initial encounter S46.812A [place] [id number] [place] [address] Feb, Left wrist pain M25.532 [place] [address] [address] Feb, Left wrist pain M25.532 [place] [address] [address] December, Encounter for immunization Z 23 ; Hypertriglyceridemia E78.1 ; Forgetfulness R68.89 and Fatigue, unspecified type R53.83 [place] [address] [address] Jun, Forgetfulness R68.89 and Rhi nitis, unspecified type J31.0 [place] [address] [address] May, [place] [address] [address] May, Hypoxemia R09.02 ; Memory lo ss R41.3 ; Arthralgia, unspecified joint M25.50 and Rhinitis, unspecified type J31.0 [place] [address] [address] [place] [id number] [address] [place] [address] Mar, Vertigo R42 ; Orthostatic hy potension I95.1 and Chronic gastritis without bleeding, unspecified gastritis type K29.50 [place] [address] [place] [id number] [address] [place] [address] Feb, [place] [address] [place] [id number] [address] [place] [address] Feb, Forgetfulness R68.89 [place] [address] [address] 24 Jan, [address] [address] Jan, Gastroesophageal reflux dise ase without esophagitis K21.9 ; Fatigue, unspecified type R53.83 ; Weakness R53.1 ; Forgetfulness R68.89 ; Hyperlipidemia, unspecified hyperlipidemia E78.5 and Hearing abnormally acute, unspecified laterality H93.[address] [address] Oct, [address] [address] Aug, Upper respiratory tract infe ction, unspecified type J06.[address] [address] Aug, [address] [address] Jun, Encounter for immunization Z 23 ; Acute idiopathic gout, unspecified site M10.00 ; Hyperlipidemia, unspecified hyperlipidemia E78.5 ; Gastroesophageal reflux disease without esophagitis K21.9 and Fatigue, unspecified type R53.[address] [address] 17 Jan, 2015 Esophageal reflux 530.81 and Irritable bowel syndrome 564.[address] [address] Jan, [address] [address] Jan, Gastritis 535.50 ; Hx of col onic polyp V12.72 and Positional vertigo 386.[address] [address] 09 Jan, [address] [address] 04 Carlos Alberto, 2015 Dizziness 780.4 and Nausea & vomiting 787.01 [facility] [address] [id number] [address] [place] [address], [place] [address] Nov, [facility] [address] [id number] [address] [place] [id number] 28 Nov, 2014 [facility] [address] [id number] [address] [place] [address], [place] [address] 14 Nov, 2014 [facility] [address] [id number] [address] [place] [address] Nov, [facility] [address] [id number] [address] [place] [address], [place] [address] 16 Oct, 2014 [facility] [address] [id number] [address] [place] [id number] Oct, [facility] [address] [id number] [address] [place] [address], [place] [address] Oct, [facility] [address] [id number] [address] [place] [id number] Aug, [facility] [address] [id number] [address] [place] [id number] Aug, [facility] [address] [id number] [address] [place] [id number] Aug, [facility] [address] [id number] [address] [place] [id number] Jul, [facility] [address] [id number] [address] [place] [id number] Jul, [facility] [address] [id number] [address] [place] [address], [place] [address] Jul, [facility] [address] [id number] [address] [place] [id number] Jul, [facility] [address] [id number] [address] [place] [id number] Jul, [facility] [address] [id number] [address] [place] [address], [place] [address] 08 Jul, 2014 [facility] [address] [id number] [address] [place] [address], [place] [address] Jul, [facility] [address] [id number] [address] [place] [address], [place] [address] Jul, [facility] [address] [id number] [address] [place] [address], [place] [address] Jul, [facility] [address] [id number] [address] [place] [address], [place] [address] Jul, [facility] [address] [id number] [address] [place] [address], [place] [id number] Jul, [facility] [address] [id number] [address] [place] [address], [place] [address] Jun, [facility] [address] [id number] [address] [place] [address], [place] [address] Jun, [facility] [address] [id number] [address] [place] [address], [place] [address] Jun, [facility] [address] [id number] [address] [place] [address], [place] [address] Jun, [facility] [address] [id number] [address] [place] [address], [place] [address] 17 Apr, 2014 [facility] [address] [id number] [address] [place] [address], [place] [id number] 17 Apr, 2014 [facility] [address] [id number] [address] [place] [address], [place] [id number] 17 Apr, 2014 [facility] [address] [id number] [address] [place] [address], [place] [address] Apr, [facility] [address] [id number] [address] [place] [address], [place] [address] Feb, [facility] [address] [id number] [address] [place] [address], [place] [address] Feb, [facility] [address] [id number] [address] [place] [address], [place] [address] Feb, [facility] [address] [id number] [address] [place] [address], [place] [address] Feb, [facility] [address] [id number] [address] [place] [address], [place] [address] Jan, [facility] [address] [id number] [address] [place] [address], [place] [address] Jan, [facility] [address] [id number] [address] [place] [address], [place] [address] Jan, [facility] [address] [id number] [address] [place] [address], [place] [address] Jan, [facility] [address] [id number] [address] [place] [address], [place] [address] December, [facility] [address] [id number] [address] [place] [address], [place] [address] December, [facility] [address] [id number] [address] [place] [address], [place] [address] December, [facility] [address] [id number] [address] [place] [address], [place] [address] December, [facility] [address] [id number] [address] [place] [address], [place] [address] December, [facility] [address] [id number] [address] [place] [address], [place] [address] December, [facility] [address] [id number] [address] [place] [address], [place] [address] Oct, [facility] [address] [id number] [address] [place] [address], [place] [address] Oct, [facility] [address] [id number] [address] [place] [address], [place] [id number] Sep, [facility] [address] [id number] [address] [place] [address], [place] [address] Sep, [facility] [address] [id number] [address] [place] [address], [place] [address] Aug, [facility] [address] [id number] [address] [place] [address], [place] [address] Aug, [facility] [address] [id number] [address] [place] [address], [place] [address] Jul, [facility] [address] [id number] [address] [place] [address], [place] [address] Jul, [facility] [address] [id number] [address] [place] [address], [place] [address] May, [facility] [address] [id number] [address] [place] [address], [place] [address] May, [facility] [address] [id number] [address] [place] [address], [place] [address] May, [facility] [address] [id number] [address] [place] [address], [place] [address] Apr, [facility] [address] [id number] [address] [place] [address], [place] [address] Feb, [facility] [address] [id number] [address] [place] [address], [place] [address] Feb, [facility] [address] [id number] [address] [place] [address], [place] [address] Feb, [facility] [address] [id number] [address] [place] [address], [place] [address] Feb, [facility] [address] [id number] [address] [place] [address], [place] [address] Jan, [facility] [address] [id number] [address] [place] [address], [place] [address] Jan, [facility] [address] [id number] [address] [place] [address], [place] [address] December, [facility] [address] [id number] [address] [place] [address], [place] [address] 16 Nov, 2012 [facility] [address] [id number] [address] [place] [address], [place] [address] 04 Nov, 2012 [facility] [address] [id number] [address] [place] [address], [place] [address] 13 Oct, 2012 [facility] [address] [id number] [address] [place] [address], [place] [id number] 06 Oct, 2012 [facility] [address] [id number] [address] [place] [address], [place] [address] Oct, [facility] [address] [id number] [address] [place] [address], [place] [address] Aug, [facility] [address] [id number] [address] [place] [address], [place] [address] Aug, [facility] [address] [id number] [address] [place] [address], [place] [address] Jul, [facility] [address] [id number] [address] [place] [address], [place] [address] Jul, [facility] [address] [id number] [address] [place] [address], [place] [address] Jul, [facility] [address] [id number] [address] [place] [address], [place] [address] Jul, [facility] [address] [id number] [address] [place] [address], [place] [address] Jun, [facility] [address] [id number] [address] [place] [address], [place] [address] Jun, [facility] [address] [id number] [address] [place] [address], [place] [address] May, [facility] [address] [id number] [address] [place] [address], [place] [address] Mar, [facility] [address] [id number] [address] [place] [address], [place] [address] Mar, [facility] [address] [id number] [address] [place] [address], [place] [address] Jan, [facility] [address] [id number] [address] [place] [address], [place] [address] Jan, [facility] [address] [id number] [address] [place] [address], [place] [address] December, [facility] [address] [id number] [address] [place] [address], [place] [address] December, [facility] [address] [id number] [address] [place] [address], [place] [address] December, [facility] [address] [id number] [address] [place] [address], [place] [address] December, [facility] [address] [id number] [address] [place] [address], [place] [address] Sep, [facility] [address] [id number] [address] [place] [address], [place] [address] Sep, [facility] [address] [id number] [address] [place] [address], [place] [address] Jun, [facility] [address] [id number] [address] [place] [address], [place] [address] 14 Jun, 2011 [facility] [address] [id number] [address] [place] [address], [place] [address] 18 May, 2011 [facility] [address] [id number] [address] [place] [address], [place] [address] Feb, [facility] [address] [id number] [address] [place] [address], [place] [address] 10 Mar, 2010 [facility] [address] [id number] [address] [place] [address], [place] [address] Nov, [facility] [address] [id number] [address] [place] [address], [place] [address] 18 Sep, 2009 [facility] [address] [id number] [address] [place] [id number] Jun, [facility] [address] [facility] [id number] [address] [place] [id number] Jun, [facility] [address] [facility] [id number] [address] [place] [id number] May, [facility] [address] [facility] [id number] [address] [place] [id number] Mar, [facility] [address] [facility] [id number] [address] [place] [id number] December, IMMUNIZATIONS No Known Immunizations SOCIAL HISTORY Never Assessed REASON FOR VISIT Blood Pressure - ZOILA Navarrete PLAN OF CARE Activity Details Follow Up 3 Months Reason:BP VITAL SIGNS Height 64 in 2017-10-17 Weight 130.1 lbs 2017-10-17 Temperature 98.2 degrees Fahrenheit 2017-10-17 Heart Rate 92 bpm 2017-10-17 Respiratory Rate 20 2017-10-17 BMI 22.33 kg/m2 2017-10-17 Blood pressure systolic 170 mmHg 2017-10-17 Blood pressure diastolic 92 mmHg 2017-10-17 MEDICATIONS Medication Instructions Dosage Frequency Start Date End Date Duration S tatus Aspir-81 81 MG Orally Once a day 1 tablet 24h Active Fluticasone Propionate 50 MCG/ACT Nasally twice a day 1 spray in each nostril 12h May, Active Calcium + D3 600-200 MG-UNIT Orally Once a day 1 tablet with a meal 24h Active Stool Softener 100 MG Orally Once a day 3 capsule as needed 24h Not-Taking Multi Vitamin/Minerals - Active Ventolin HFA 108 (90 Base) MCG/ACT Inhalation every 6 hrs 2 puffs a s needed 6h Not-Taking Aricept 10 mg Orally Once a day 1/2 tablet 24h 10 May, 2016 Not-Taking BuPROPion HCl ER (SR) 200 mg Orally Twice a day 1 tablet 12h 90 Active Famotidine 20 mg Orally twice a day 1 tablet 12h Apr, 30 Active Vitamin E 400 UNIT Orally Once a day 1 capsule 24h Unknown RESULTS No Results PROCEDURES Procedure Date Ordered Result Body Site [facility] VISIT ESTABLISHED PATIENT October 17, 2017 INSTRUCTIONS MEDICATIONS ADMINISTERED No Known Medications [...]
--- OUTSIDE RECORDS SUMMARY | 2020-02-28 02:41 | XMS REPORT | CCD ---
Author Lisy Bowen MD, [facility] Address [address] [place] [address] Phone Care Team Providers Care Chorus Master Name Role Phone PP Unavailable CCM Unavailable Summary Purpose Interface Exchange Insurance Providers Payer name Policy type / Coverage type Covered green party ID Effective Begin Date Effective End Date WPS Medicare Part B Medicare Part B [id number] Unknown Unknown AARP Medicare Part B [id number] Unknown Unknown Family history Mother Diagnosis Age At Onset Hyperlipidemia Unknown Diabetes mellitus Type 2 Unknown Asthma Unknown Hypertension Unknown Father Diagnosis Age At Onset Stroke Unknown Heart Attack Unknown Asthma Unknown Social History Social History Element Codes Description Effective Dates Marital status Unknown W idowed 11/07/2018 Number of children Unknown 3 11/07/2018 Employment Unknown Retir ed 11/07/[address]: 8578550 Quit over 10 years ago 1974 11/07/[address]: 032368923 Never drinks alcohol 11/07/2018 Allergies, Adverse Reactions, Alerts Substance Reaction Codes Entered Date Inactivated Date Status Penicillin Unknown 11/07/2018 No In active Date Active Past Medical History Illness Codes Condition Status Onset Date Resolved Date Essential (primary) hypertension ICD-9: 401.1 ICD-10: I10 Active 11/07/2018 Unknown Generalized anxiety disorder ICD-9: 300.00 ICD-10: F41.1 Active 11/07/2018 Unknown Major depressive dis order, single episode, moderate ICD-9: 296.22 ICD-10: F32.1 Active 11/07/2018 Unknown Problems Condition Codes Effectiv e Dates Condition Status Essential (primary) hypertension ICD-9: 401.1 ICD-10: I10 11/07/2018 Active Generalized anxiety disorder ICD-9: 300.00 ICD-10: F41.1 11/07/2018 Active Major depressive dis order, single episode, moderate ICD-9: 296.22 ICD-10: F32.1 11/07/2018 Active Medications Medication Codes Instruc tions Start Date Stop Date Sta tus Fill Instructions Prozac 20 mg capsule RxNorm: 231485 1 Capsule(s) PO BID 11/07/2018 12/06/2018 Active famotidine 20 mg tablet RxNorm: 305227 1 Tablet(s) PO BID No Start Date Active lisinopril 10 mg tablet RxNorm: 180482 1 Tablet(s) PO daily No Start Date Active vitamin E (dl, aceta te) 400 unit capsule RxNorm: 948857 1 Capsule(s) PO daily No Start Date Active Aspirin Low Dose 81 mg tablet,delayed release RxNorm: 287575 1 Tablet(s) PO daily No Start Date Active docusate sodium 250 mg capsule RxNorm: 2724645 1 Capsule(s) PO daily No Start Date Active bupropion HCl SR 200 mg tablet,12 hr sustained-release RxNorm: 685605 1 Tablet(s) PO BID No Start Date 11/05/2018 Inactive Medication Administered No Medication Administered data Immunizations No Immunization data Assessments Condition Codes Effectiv e Dates Essential (primary) hypertension ICD -10: I10 ICD-9: 401.1 11/07/2018 Major depressive disorder, single episode, moderate ICD-10: F32.1 ICD-9: 296.22 11/07/2018 Generalized anxiety disorder ICD-10: F41.1 ICD-9: 300.00 11/07/2018 Reason For Visit Reason For Visit Effective Dates Notes hypertension 11/07/2018 Results No Results data Review of Systems System Result Effective Dates Constitutional No recent illness 11/07/2018 Constitutional No chills 11/07/2018 Constitutional No diaphoresis 11/07/2018 Constitutional No fever 11/07/2018 Eyes No eye erythema 11/2018 Ears/Nose/Throat/Neck No nasal allergies 11/07/2018 Ears/Nose/Throat/Neck No nasal discharge 11/07/2018 Cardiovascular No chest pain/pressure 11/07/2018 Cardiovascular No dyspnea 11/07/2018 Respiratory No chest congestion 11/07/2018 Respiratory No cough 11/2018 Gastrointestinal No abdominal pain 11/07/2018 Gastrointestinal No constipation 11/07/2018 Gastrointestinal No diarrhea 11/07/2018 Gastrointestinal No hematochezia 11/07/2018 Gastrointestinal No melena 11/07/2018 Gastrointestinal No nausea 11/07/2018 Gastrointestinal No vomiting 11/07/2018 Musculoskeletal No joint complaint 11/07/2018 Dermatologic No rash 11/2018 Neurologic No alteration of consciousness 11/07/2018 Neurologic No mental status change 11/07/2018 Physical Exam Exam Name System Name It em Name Status Result Effective Dates Notes Full Exam - General 1994 Constitutional general appearance Overall: well developed 11/07/2018 None Full Exam - General 1994 Constitutional general appearance Overall: in no acute distress 11/07/2018 None Full Exam - General 1994 Constitutional general appearance Overall: well nourished 11/07/2018 None Full Exam - General 1994 Eyes conjunctiva/eyelids Overall: conjunctiva clear 11/07/2018 None Full Exam - General 1994 Eyes conjunctiva/eyelids Overall: cornea clear 11/07/2018 None Full Exam - General 1994 Eyes conjunctiva/eyelids Overall: eyelids normal 11/07/2018 None Full Exam - General 1994 Eyes pupils and irises Overall: pupils equal, round, reactive to light and accomodation 11/07/2018 None Full Exam - General 1994 Ears/Nose/Throat otoscopic exam Overall: external auditory canals clear 11/07/2018 None Full Exam - General 1994 Ears/Nose/Throat otoscopic exam Overall: tympanic membranes clear 11/07/2018 None Full Exam - General 1994 Ears/Nose/Throat lips/teeth/gingiva Overall: benign lips 11/07/2018 None Full Exam - General 1994 Ears/Nose/Throat oral cavity/pharynx/larynx Overall: oral mucosa clear 11/07/2018 None Full Exam - General 1994 Ears/Nose/Throat oral cavity/pharynx/larynx Overall: oropharyngeal mucosa clear 11/07/2018 None Full Exam - General 1994 Respiratory auscultation Overall: breath sounds clear bilaterally 11/07/2018 None Full Exam - General 1994 Respiratory respiratory effort/rhythm Overall: no retractions 11/07/2018 None Full Exam - General 1994 Respiratory respiratory effort/rhythm Overall: normal rate 11/07/2018 None Full Exam - General 1994 Cardiovascular extremities Overall: no clubbing 11/07/2018 None Full Exam - General 1994 Cardiovascular auscultation of heart Overall: regular rate 11/07/2018 None Full Exam - General 1994 Cardiovascular auscultation of heart Overall: normal heart sounds 11/07/2018 None Full Exam - General 1994 Abdomen abdominal exam Overall: no tenderness 11/07/2018 None Full Exam - General 1994 Abdomen abdominal exam Overall: normal bowel sounds 11/07/2018 None Full Exam - General 1994 Musculoskeletal gait and station Overall: normal gait 11/07/2018 None Full Exam - General 1994 Musculoskeletal gait and station Overall: normal station 11/07/2018 None Full Exam - General 1994 Musculoskeletal head and neck Overall: head atraumatic 11/07/2018 None Full Exam - General 1994 Neurologic cranial nerves Overall: crainial nerves 2 - 12 grossly intact 11/07/2018 None Full Exam - General 1994 Psychiatric orientation/consciousness Overall: oriented to person, place and time 11/07/2018 None Full Exam - General 1994 Psychiatric mood and affect Overall: normal mood and affect 11/07/2018 None Full Exam - General 1994 Psychiatric appearance Overall: well-groomed, good eye contact 11/07/2018 None Procedures No Procedures data Vital Signs Date Vital 11/07/2018 Blood Pressure 1: 126/72 Code: 8480-6 BMI: 22.9 Code: 62925-2 Heart Rate 1: 80 bpm Height: 5'3" SpO2: 98% Weight: 129 lbs Functional Status No Functional Status data History of Present Illness Symptom Name Status Resu lt Effective Date Notes Quality chronic 11/07/2018 None Onset and Resolution o ngoing 11/07/2018 None Pertinent Findings Den ies dyspnea 11/07/2018 None Advance Directives No Advance Directive data Encounters Encounter Performer Loca tion Codes Date OFFICE VISIT, NEW - LEVEL 3 Diagnosis: Essential (primary) hypertension[ICD10: I10] Diagnosis: Generalized anxiety disorder[ICD10: F41.1] Diagnosis: Major depressive disorder, single episode, moderate[ICD10: F32.1] [facility] CPT-4: 91445 11/07/2018 Plan of Care Planned Activity Notes C odes Status Date Visit Plan: Chronic Depression and anxiety - the pt has symptoms of chronic anxiety and depression that have been fairly well controlled since the last office visit. The pt has expected periods of exacerbation with abatement of the symptoms with change in situational exposure. No change in current medications. Hypertension - well controlled - continue with current medications, continue with no added salt diet. Pt has been encouraged to exercise daily. The pt has been advised to call the office if there are any acute concerns about change in blood pressure readings at home. 11/07/2018 Appointment: Madison Benitez [facility]el[facility] [address] [facility] [place] [facility] [id number] [place] New Patient 11/07/2018 Patient Education: Patient Medication Summary Completed 11/07/2018 Patient Education: Depression Completed 11/07/2018 Instructions Comment take 1.5 buproprion x 3 days, then take 1 buproprion x 3 days, then take 1/2 buproprion x 3 days and 1 20mg prozac. then stop the buproprion and increase the prozac to 1 20mg pill twice a day - come back for a follow up appointment in 1 month. let us know if you have any questinos check blood pressures once a week and bring them to your next appointment . Chronic Depression and anxiety - the pt has symptoms of chronic anxiety and depression that have been fairly well controlled since the last office visit. The pt has expected periods of exacerbation with abatement of the symptoms with change in situational exposure. No change in current medications. Hypertension - well controlled - continue with current medications, continue with no added salt diet. Pt has been encouraged to exercise daily. The pt has been advised to call the office if there are any acute concerns about change in blood pressure readings at home.
--- OUTSIDE RECORDS SUMMARY | 2020-02-28 02:41 | XMS REPORT | CCD ---
Author Author Lisy Benitez MD, [facility] Address [address] [place] [address] Phone Care Team Providers Care Buttonhole Marker Name Role Phone PP Unavailable CCM Unavailable Summary Purpose Interface Exchange Insurance Providers Payer name Policy type / Coverage type Covered libertarian ID Effective Begin Date Effective End Date WPS Medicare Part B Medicare Part B [id number] Unknown Unknown AARP Medicare Part B [id number] Unknown Unknown Family history Mother Diagnosis Age At Onset Hyperlipidemia Unknown Diabetes mellitus Type 2 Unknown Asthma Unknown Hypertension Unknown Father Diagnosis Age At Onset Stroke Unknown Heart Attack Unknown Asthma Unknown Social History Social History Element Codes Description Effective Dates Marital status Unknown W idowed 11/07/2018 Number of children Unknown 3 11/07/2018 Employment Unknown Retir ed 11/07/[address]: 1818697 Quit over 10 years ago 1974 11/07/[address]: 148158286 Never drinks alcohol 11/07/2018 Allergies, Adverse Reactions, Alerts Substance Reaction Codes Entered Date Inactivated Date Status Penicillin Unknown 11/07/2018 No In active Date Active Past Medical History Illness Codes Condition Status Onset Date Resolved Date Essential (primary) hypertension ICD-9: 401.1 ICD-10: I10 Active 11/07/2018 Unknown Pain in left wrist ICD- 9: 719.43 ICD-10: M25.532 Active 11/21/2018 Unknown Generalized anxiety disorder ICD-9: 300.00 ICD-10: F41.1 Active 11/07/2018 Unknown Major depressive dis order, single episode, moderate ICD-9: 296.22 ICD-10: F32.1 Active 11/07/2018 Unknown Problems Condition Codes Effectiv e Dates Condition Status Essential (primary) hypertension ICD-9: 401.1 ICD-10: I10 11/07/2018 Active Pain in left wrist ICD- 9: 719.43 ICD-10: M25.532 11/21/2018 Active Generalized anxiety disorder ICD-9: 300.00 ICD-10: F41.1 11/07/2018 Active Major depressive dis order, single episode, moderate ICD-9: 296.22 ICD-10: F32.1 11/07/2018 Active Medications Medication Codes Instruc tions Start Date Stop Date Sta tus Fill Instructions Prozac 20 mg capsule RxNorm: 852748 1 Capsule(s) PO BID 11/07/2018 12/06/2018 Active famotidine 20 mg tablet RxNorm: 202310 1 Tablet(s) PO BID No Start Date Active lisinopril 10 mg tablet RxNorm: 916734 1 Tablet(s) PO daily No Start Date Active vitamin E (dl, aceta te) 400 unit capsule RxNorm: 157614 1 Capsule(s) PO daily No Start Date Active Aspirin Low Dose 81 mg tablet,delayed release RxNorm: 890041 1 Tablet(s) PO daily No Start Date Active docusate sodium 250 mg capsule RxNorm: 8363111 1 Capsule(s) PO daily No Start Date Active bupropion HCl SR 200 mg tablet,12 hr sustained-release RxNorm: 180470 1 Tablet(s) PO BID No Start Date 11/05/2018 Inactive Medication Administered No Medication Administered data Immunizations No Immunization data Assessments Condition Codes Effectiv e Dates Essential (primary) hypertension ICD -10: I10 ICD-9: 401.1 11/21/2018 Pain in left wrist ICD-10: M25.532 ICD-9: 719.43 11/21/2018 Major depressive disorder, single episode, moderate ICD-10: F32.1 ICD-9: 296.22 11/07/2018 Generalized anxiety disorder ICD-10: F41.1 ICD-9: 300.00 11/07/2018 Reason For Visit Reason For Visit Effective Dates Notes wrist pain 11/21/2018 hypertension 11/07/2018 Results No Results data Review of Systems System Result Effective Dates Constitutional No recent illness 11/21/2018 Constitutional No chills 11/21/2018 Constitutional No diaphoresis 11/21/2018 Constitutional No fever 11/21/2018 Eyes No blindness 2018 Ears/Nose/Throat/Neck No nasal allergies 11/21/2018 Ears/Nose/Throat/Neck No nasal discharge 11/21/2018 Cardiovascular No chest pain/pressure 11/21/2018 Cardiovascular No dyspnea 11/21/2018 Respiratory No chest congestion 11/21/2018 Respiratory No cough Gastrointestinal No abdominal pain 11/21/2018 Gastrointestinal No constipation 11/21/2018 Gastrointestinal No diarrhea 11/21/2018 Gastrointestinal No hematochezia 11/21/2018 Gastrointestinal No melena 11/21/2018 Gastrointestinal No nausea 11/21/2018 Gastrointestinal No vomiting 11/21/2018 Musculoskeletal joint complaint 11/21/2018 Dermatologic No rash Neurologic No alteration of consciousness 11/21/2018 Neurologic No mental status change 11/21/2018 Constitutional No recent illness 11/07/2018 Constitutional No [...] 1994 Constitutional general appearance Overall: well developed 11/21/2018 None Full Exam - General 1994 Constitutional general appearance Overall: in no acute distress 11/21/2018 None Full Exam - General 1994 Constitutional general appearance Overall: well nourished 11/21/2018 None Full Exam - General 1994 Eyes conjunctiva/eyelids Overall: conjunctiva clear 11/21/2018 None Full Exam - General 1994 Eyes conjunctiva/eyelids Overall: cornea clear 11/21/2018 None Full Exam - General 1994 Eyes conjunctiva/eyelids Overall: eyelids normal 11/21/2018 None Full Exam - General 1994 Eyes pupils and irises Overall: pupils equal, round, reactive to light and accomodation 11/21/2018 None Full Exam - General 1994 Ears/Nose/Throat otoscopic exam Overall: external auditory canals clear 11/21/2018 None Full Exam - General 1994 Ears/Nose/Throat otoscopic exam Overall: tympanic membranes clear 11/21/2018 None Full Exam - General 1994 Ears/Nose/Throat lips/teeth/gingiva Overall: benign lips 11/21/2018 None Full Exam - General 1994 Ears/Nose/Throat oral cavity/pharynx/larynx Overall: oral mucosa clear 11/21/2018 None Full Exam - General 1994 Ears/Nose/Throat oral cavity/pharynx/larynx Overall: oropharyngeal mucosa clear 11/21/2018 None Full Exam - General 1994 Respiratory auscultation Overall: breath sounds clear bilaterally 11/21/2018 None Full Exam - General 1994 Respiratory respiratory effort/rhythm Overall: no retractions 11/21/2018 None Full Exam - General 1994 Respiratory respiratory effort/rhythm Overall: normal rate 11/21/2018 None Full Exam - General 1994 Cardiovascular extremities Overall: no clubbing 11/21/2018 None Full Exam - General 1994 Cardiovascular auscultation of heart Overall: regular rate 11/21/2018 None Full Exam - General 1994 Cardiovascular auscultation of heart Overall: normal heart sounds 11/21/2018 None Full Exam - General 1994 Musculoskeletal gait and station Overall: normal gait 11/21/2018 None Full Exam - General 1994 Musculoskeletal gait and station Overall: normal station 11/21/2018 None Full Exam - General 1994 Musculoskeletal head and neck Overall: head atraumatic 11/21/2018 None Full Exam - General 1994 Neurologic cranial nerves Overall: crainial nerves 2 - 12 grossly intact 11/21/2018 None Full Exam - General 1994 Psychiatric orientation/consciousness Overall: oriented to person, place and time 11/21/2018 None Full Exam - General 1994 Psychiatric mood and affect Overall: normal mood and affect 11/21/2018 None Full Exam - General 1994 Psychiatric appearance Overall: well-groomed, good eye contact 11/21/2018 None Full Exam - General 1994 Musculoskeletal upper extremity Palpation - wrist: tender 11/21/2018 None Full Exam - General 1994 Constitutional [...] No Procedures data Vital Signs Date Vital 11/21/2018 Blood Pressure 1: 140/70 Code: 8480-6 BMI: 22.9 Code: 99602-7 Heart Rate 1: 100 bpm Height: 5'3" SpO2: 96% Weight: 129 lbs 11/07/2018 Blood Pressure 1: 126/72 Code: 8480-6 BMI: 22.9 Code: 01322-0 Heart Rate 1: 80 bpm Height: 5'3" SpO2: 98% Weight: 129 lbs Functional Status No Functional Status data History of Present Illness Symptom Name Status Resu lt Effective Date Notes Location on the left 11/21/2018 None Quality intermittent 11/21/2018 None Onset of Symptom 1 wee ks ago 11/21/2018 None Pertinent Findings bru ising 11/21/2018 None Pertinent Findings swe lling 11/21/2018 None Pertinent Findings num bness 11/21/2018 to fingers Quality chronic 11/07/2018 None Onset and Resolution o ngoing 11/07/2018 None Pertinent Findings Den ies dyspnea 11/07/2018 None Advance Directives No Advance Directive data Encounters Encounter Performer Loca tion Codes Date EST. P ATIENT, LEVEL III Diagnosis: Pain in left wrist[ICD10: M25.532] Diagnosis: Essential (primary) hypertension[ICD10: I10] Michelle Pruitt MD, [facility] CPT-4: 29384 11/21/2018 OFFICE VISIT, NEW - LEVEL 3 Diagnosis: Essential (primary) hypertension[ICD10: I10] Diagnosis: Generalized anxiety disorder[ICD10: F41.1] Diagnosis: Major depressive disorder, single episode, moderate[ICD10: F32.1] Madison Pruitt MD, [facility] CPT-4: 08997 11/07/2018 Plan of Care Planned Activity Notes C odes Status Date Visit Plan: Left wrist pain - impro perri - continue with splint PRN. Hypertension - well controlled - continue with current medications, continue with no added salt diet. Pt has been encouraged to exercise daily. The pt has been advised to call the office if there are any acute concerns about change in blood pressure readings at home. 11/21/2018 Patient Education: Patient Medication Summary Completed 11/21/2018 Visit Plan: Chronic Depression and anxiety - [...] at home. 11/07/2018 Appointment: Madison Benitez WPtel: [address] [place], [place] [id number] New Patient 11/07/2018 Patient Education: Patient Medication Summary Completed 11/07/2018 Patient Education: Depression Completed 11/07/2018 Instructions Comment . Left wrist pain - improved - continue with splint PRN. Hypertension - well controlled - continue with current medications, continue with no added salt diet. Pt has been encouraged to exercise daily. The pt has been advised to call the office if there are any acute concerns about change in blood pressure readings at home. take 1.5 buproprion x 3 days, then [...]
--- OUTSIDE RECORDS SUMMARY | 2020-02-28 02:41 | XMS REPORT | CCD ---
Author Author Lisy Benitez Organization Michelle Pruitt MD, [facility] Address [address] [place] [address] Phone Care Team Providers Care Packaging Technician Name Role Phone PP Unavailable CCM Unavailable Summary Purpose Interface Exchange Insurance Providers Payer name Policy type / Coverage type Covered democrat ID Effective Begin Date Effective End Date WPS Medicare Part B Medicare Part B [id number] Unknown Unknown AARP Medicare Part B [id number] Unknown Unknown Family history Mother Diagnosis Age At Onset Hyperlipidemia Unknown Diabetes mellitus Type 2 Unknown Asthma Unknown Hypertension Unknown Hip fracture Unknown old age Unknown Father Diagnosis Age At Onset Stroke Unknown Heart Attack Unknown Asthma Unknown Social History Social History Element Codes Description Effective Dates Marital status Unknown W idowed 11/07/2018 Number of children Unknown 3 11/07/2018 Employment Unknown Retir ed 11/07/[address]: 2072762 Quit over 10 years ago 1974 11/07/[address]: 843246160 Never drinks alcohol 11/07/2018 Allergies, Adverse Reactions, Alerts Substance Reaction Codes Entered Date Inactivated Date Status Penicillin Unknown 11/07/2018 No In active Date Active Past Medical History Illness Codes Condition Status Onset Date Resolved Date Essential (primary) hypertension ICD-9: 401.1 ICD-10: I10 Active 11/07/2018 Unknown Low back pain ICD-9: 724.2 ICD-10: M54.5 Active 03/04/2019 Unknown Other allergic rhinitis ICD-9: 477.8 ICD-10: J30.89 Active 03/04/2019 Unknown Generalized anxiety disorder ICD-9: 300.00 ICD-10: F41.1 Active 11/07/2018 Unknown Major depressive dis order, single episode, moderate ICD-9: 296.22 ICD-10: F32.1 Active 11/07/2018 Unknown Pain in left wrist ICD- 9: 719.43 ICD-10: M25.532 Active 11/21/2018 Unknown Problems Condition Codes Effectiv e Dates Condition Status Essential (primary) hypertension ICD-9: 401.1 ICD-10: I10 11/07/2018 Active Low back pain ICD-9: 724.2 ICD-10: M54.5 03/04/2019 Active Other allergic rhinitis ICD-9: 477.8 ICD-10: J30.89 03/04/2019 Active Generalized anxiety disorder ICD-9: 300.00 ICD-10: F41.1 11/07/2018 Active Major depressive dis order, single episode, moderate ICD-9: 296.22 ICD-10: F32.1 11/07/2018 Active Pain in left wrist ICD- 9: 719.43 ICD-10: M25.532 11/21/2018 Active Medications Medication Codes Instruc tions Start Date Stop Date Sta tus Fill Instructions Prozac 20 mg capsule RxNorm: 813313 TAKE 1 CAPSULE BY MOUTH TWICE DAILY 04/10/2019 No Stop Date Active lisinopril 20 mg tablet RxNorm: 560245 1 Tablet(s) PO daily 03/04/2019 11/28/2019 Active famotidine 20 mg tablet RxNorm: 010024 1 Tablet(s) PO BID 02/12/2019 06/11/2019 Active lisinopril 10 mg tablet RxNorm: 216645 1 Tablet(s) PO daily 02/12/2019 02/11/2019 Inactive lisinopril 10 mg tablet RxNorm: 451752 1 Tablet(s) PO daily 02/12/2019 03/03/2019 Inactive famotidine 20 mg tablet RxNorm: 563488 1 Tablet(s) PO BID 02/12/2019 02/11/2019 Inactive Prozac 20 mg capsule RxNorm: 165039 1 Capsule(s) PO BID 12/09/2018 04/07/2019 Inactive Prozac 20 mg capsule RxNorm: 365430 1 Capsule(s) PO BID 11/07/2018 12/06/2018 Inactive Fish Oil 1,000 mg ca psule RxNorm: 1200 Capsule(s) PO BID No Start Date Active vitamin E (dl, aceta te) 400 unit capsule RxNorm: 287009 1 Capsule(s) PO daily No Start Date Active Aspirin Low Dose 81 mg tablet,delayed release RxNorm: 514917 1 Tablet(s) PO daily No Start Date Active docusate sodium 250 mg capsule RxNorm: 5850140 1 Capsule(s) PO daily No Start Date Active famotidine 20 mg tablet RxNorm: 674204 1 Tablet(s) PO BID No Start Date 02/11/2019 Inactive lisinopril 10 mg tablet RxNorm: 500970 1 Tablet(s) PO daily No Start Date 02/11/2019 Inactive bupropion HCl SR 200 mg tablet,12 hr sustained-release RxNorm: 365321 1 Tablet(s) PO BID No Start Date 11/05/2018 Inactive Medication Administered No Medication Administered data Immunizations No Immunization data Assessments Condition Codes Effectiv e Dates Other allergic rhinitis ICD-10: J30. 89 ICD-9: 477.8 03/04/2019 Low back pain ICD-10: M54.5 ICD-9: 724.2 03/04/2019 Essential (primary) hypertension ICD -10: I10 ICD-9: 401.1 03/04/2019 Pain in left wrist ICD-10: M25.532 ICD-9: 719.43 11/21/2018 Major depressive disorder, single episode, moderate ICD-10: F32.1 ICD-9: 296.22 11/07/2018 Generalized anxiety disorder ICD-10: F41.1 ICD-9: 300.00 11/07/2018 Reason For Visit Reason For Visit Effective Dates Notes hypertension 03/04/2019 hypertension 02/17/2019 wrist pain 11/21/2018 hypertension 11/07/2018 Results Observation Observation Code Item Item Code Result Date Comp Metabolic Fqs388 NA 140 mEq/L 02/18/2019 Comp Metabolic Tby749 K 4.1 mEq/L 02/18/2019 Comp Metabolic Trq488 CL 103 mEq/L 02/18/2019 Comp Metabolic Tyj448 CO2 27.0 mEq/L 02/18/2019 Comp Metabolic Gqq269 AN ION GAP 14 02/18/2019 Comp Metabolic Run893 GL UCOSE 103 mg/dL 02/18/2019 Comp Metabolic Jyh162 Cr eat 0.9 mg/dL 02/18/2019 Comp Metabolic Gan331 eG FR 65 ml/min/1.73m2 02/18 Comp Metabolic Yes655 BUN 16 mg/dL 02/18/2019 Comp Metabolic Wuv770 B/ C Ratio 17.8 Ratio 02/18/2019 Comp Metabolic Ozc779 CA LCIUM 9.3 mg/dL 02/18/2019 Comp Metabolic Kuh143 AL K PHOS 78 U/L 02/18/2019 Comp Metabolic Vte729 T(SGOT) 19 U/L 02/18/2019 Comp Metabolic Ovm755 AL T(SGPT) 14 U/L 02/18/2019 Comp Metabolic Shh050 BI LI T 1.0 mg/dL 02/18/2019 Comp Metabolic Vdi925 AL BUMIN 4.3 g/dL 02/18/2019 Comp Metabolic Cri535 TP RO 7.0 g/dL 02/18/2019 Comp Metabolic Rcz284 GL OB 2.7 g/dL 02/18/2019 Comp Metabolic Tae765 A/ G Ratio 1.6 Ratio 02/18/2019 Comp Metabolic Nwq063 Os mo 281 mOsmo 02/18/2019 Lipid Ord30 CHOL 234 mg/dL 02/18/2019 Lipid Ord30 HDL 47.0 mg/dl 02/18/2019 Lipid Ord30 TRIG 223 mg/dL 02/18/2019 Lipid Ord30 LDL 142 mg/dL 02/18/2019 Lipid Ord30 C/HDL 5.0 Ratio 02/18/2019 Cbc With Differential Ord2 WBC 5.82 K/ul 02/18/2019 Cbc With Differential Ord2 RBC 4.58 M/ul 02/18/2019 Cbc With Differential Ord2 HGB 13.7 g/dl 02/18/2019 Cbc With Differential Ord2 HCT 42.6 % 02/18/2019 Cbc With Differential Ord2 Neut% 44.9 % 02/18/2019 Cbc With Differential Ord2 MCV 93.0 fl 02/18/2019 Cbc With Differential Ord2 Lymph% 43.6 % 02/18/2019 Cbc With Differential Ord2 MCH 29.9 pg 02/18/2019 Cbc With Differential Ord2 [place]% 9.1 % 02/18/2019 Cbc With Differential Ord2 MCHC 32.2 pg 02/18/2019 Cbc With Differential Ord2 Eos% 1.9 % 02/18/2019 Cbc With Differential Ord2 PLT 207 K/ul 02/18/2019 Cbc With Differential Ord2 Baso% 0.5 % 02/18/2019 Cbc With Differential Ord2 RDW 12.9 % 02/18/2019 Cbc With Differential Ord2 Neut ABS# 2.61 K/ul 02/18/2019 Cbc With Differential Ord2 Lymph ABS# 2.54 K/ul 02/18/2019 Cbc With Differential Ord2 [place] ABS# 0.5 K/ul 02/18/2019 Cbc With Differential Ord2 Eos ABS# 0.1 K/ul 02/18/2019 Cbc With Differential Ord2 Baso ABS# 0.0 K/ul 02/18/2019 Tsh Ord6 TSH (3rd IS) 1.90 uIU/mL 02/18/2019 Review of Systems System Result Effective Dates Constitutional No recent illness 03/04/2019 Constitutional No chills 03/04/2019 Constitutional No diaphoresis 03/04/2019 Constitutional No fever 03/04/2019 Eyes No blindness 2018 Ears/Nose/Throat/Neck No nasal allergies 03/04/2019 Ears/Nose/Throat/Neck No nasal discharge 03/04/2019 Cardiovascular No chest pain/pressure 03/04/2019 Cardiovascular No dyspnea 03/04/2019 Respiratory No chest congestion 03/04/2019 Respiratory No cough Gastrointestinal No abdominal pain 03/04/2019 Gastrointestinal No constipation 03/04/2019 Gastrointestinal No diarrhea 03/04/2019 Gastrointestinal No hematochezia 03/04/2019 Gastrointestinal No melena 03/04/2019 Gastrointestinal No nausea 03/04/2019 Gastrointestinal No vomiting 03/04/2019 Musculoskeletal No joint complaint 03/04/2019 Dermatologic No rash Neurologic No alteration of consciousness 03/04/2019 Neurologic No mental status change 03/04/2019 Musculoskeletal stiffness 03/04/2019 Musculoskeletal back pain 03/04/2019 Musculoskeletal arthralgia(s) 03/04/2019 Constitutional No recent illness 02/17/2019 Constitutional No chills 02/17/2019 Constitutional No diaphoresis 02/17/2019 Constitutional No fever 02/17/2019 Eyes No blindness 2018 Ears/Nose/Throat/Neck No nasal allergies 02/17/2019 Ears/Nose/Throat/Neck No nasal discharge 02/17/2019 Cardiovascular No chest pain/pressure 02/17/2019 Cardiovascular No dyspnea 02/17/2019 Respiratory No chest congestion 02/17/2019 Respiratory No cough Gastrointestinal No abdominal pain 02/17/2019 Gastrointestinal No constipation 02/17/2019 Gastrointestinal No diarrhea 02/17/2019 Gastrointestinal No hematochezia 02/17/2019 Gastrointestinal No melena 02/17/2019 Gastrointestinal No nausea 02/17/2019 Gastrointestinal No vomiting 02/17/2019 Musculoskeletal No joint complaint 02/17/2019 Dermatologic No rash Neurologic No alteration of consciousness 02/17/2019 Neurologic No mental status change 02/17/2019 Constitutional No recent illness 11/21/2018 Constitutional No [...] 1994 Constitutional general appearance Overall: well developed 03/04/2019 None Full Exam - General 1994 Constitutional general appearance Overall: in no acute distress 03/04/2019 None Full Exam - General 1994 Constitutional general appearance Overall: well nourished 03/04/2019 None Full Exam - General 1994 Eyes conjunctiva/eyelids Overall: conjunctiva clear 03/04/2019 None Full Exam - General 1994 Eyes conjunctiva/eyelids Overall: cornea clear 03/04/2019 None Full Exam - General 1994 Eyes conjunctiva/eyelids Overall: eyelids normal 03/04/2019 None Full Exam - General 1994 Eyes pupils and irises Overall: pupils equal, round, reactive to light and accomodation 03/04/2019 None Full Exam - General 1994 Ears/Nose/Throat otoscopic exam Overall: external auditory canals clear 03/04/2019 None Full Exam - General 1994 Ears/Nose/Throat otoscopic exam Overall: tympanic membranes clear 03/04/2019 None Full Exam - General 1994 Ears/Nose/Throat lips/teeth/gingiva Overall: benign lips 03/04/2019 None Full Exam - General 1994 Ears/Nose/Throat oral cavity/pharynx/larynx Overall: oral mucosa clear 03/04/2019 None Full Exam - General 1994 Ears/Nose/Throat oral cavity/pharynx/larynx Overall: oropharyngeal mucosa clear 03/04/2019 None Full Exam - General 1994 Respiratory auscultation Overall: breath sounds clear bilaterally 03/04/2019 None Full Exam - General 1994 Respiratory respiratory effort/rhythm Overall: no retractions 03/04/2019 None Full Exam - General 1994 Respiratory respiratory effort/rhythm Overall: normal rate 03/04/2019 None Full Exam - General 1994 Cardiovascular extremities Overall: no clubbing 03/04/2019 None Full Exam - General 1994 Cardiovascular auscultation of heart Overall: regular rate 03/04/2019 None Full Exam - General 1994 Cardiovascular auscultation of heart Overall: normal heart sounds 03/04/2019 None Full Exam - General 1994 Abdomen abdominal exam Overall: no tenderness 03/04/2019 None Full Exam - General 1994 Abdomen abdominal exam Overall: normal bowel sounds 03/04/2019 None Full Exam - General 1994 Musculoskeletal gait and station Overall: normal gait 03/04/2019 None Full Exam - General 1994 Musculoskeletal gait and station Overall: normal station 03/04/2019 None Full Exam - General 1994 Musculoskeletal head and neck Overall: head atraumatic 03/04/2019 None Full Exam - General 1994 Neurologic cranial nerves Overall: crainial nerves 2 - 12 grossly intact 03/04/2019 None Full Exam - General 1994 Psychiatric orientation/consciousness Overall: oriented to person, place and time 03/04/2019 None Full Exam - General 1994 Psychiatric mood and affect Overall: normal mood and affect 03/04/2019 None Full Exam - General 1994 Psychiatric appearance Overall: well-groomed, good eye contact 03/04/2019 None Full Exam - General 1994 Musculoskeletal spine, ribs and pelvis Posture: lordosis 03/04/2019 None Full Exam - General 1994 Constitutional general appearance Overall: well developed 02/17/2019 None Full Exam - General 1994 Constitutional general appearance Overall: in no acute distress 02/17/2019 None Full Exam - General 1994 Constitutional general appearance Overall: well nourished 02/17/2019 None Full Exam - General 1994 Eyes conjunctiva/eyelids Overall: conjunctiva clear 02/17/2019 None Full Exam - General 1994 Eyes conjunctiva/eyelids Overall: cornea clear 02/17/2019 None Full Exam - General 1994 Eyes conjunctiva/eyelids Overall: eyelids normal 02/17/2019 None Full Exam - General 1994 Eyes pupils and irises Overall: pupils equal, round, reactive to light and accomodation 02/17/2019 None Full Exam - General 1994 Ears/Nose/Throat otoscopic exam Overall: external auditory canals clear 02/17/2019 None Full Exam - General 1994 Ears/Nose/Throat otoscopic exam Overall: tympanic membranes clear 02/17/2019 None Full Exam - General 1994 Ears/Nose/Throat lips/teeth/gingiva Overall: benign lips 02/17/2019 None Full Exam - General 1994 Ears/Nose/Throat oral cavity/pharynx/larynx Overall: oral mucosa clear 02/17/2019 None Full Exam - General 1994 Ears/Nose/Throat oral cavity/pharynx/larynx Overall: oropharyngeal mucosa clear 02/17/2019 None Full Exam - General 1994 Respiratory auscultation Overall: breath sounds clear bilaterally 02/17/2019 None Full Exam - General 1994 Respiratory respiratory effort/rhythm Overall: no retractions 02/17/2019 None Full Exam - General 1994 Respiratory respiratory effort/rhythm Overall: normal rate 02/17/2019 None Full Exam - General 1994 Cardiovascular extremities Overall: no clubbing 02/17/2019 None Full Exam - General 1994 Cardiovascular auscultation of heart Overall: regular rate 02/17/2019 None Full Exam - General 1994 Cardiovascular auscultation of heart Overall: normal heart sounds 02/17/2019 None Full Exam - General 1994 Abdomen abdominal exam Overall: no tenderness 02/17/2019 None Full Exam - General 1994 Abdomen abdominal exam Overall: normal bowel sounds 02/17/2019 None Full Exam - General 1994 Musculoskeletal gait and station Overall: normal gait 02/17/2019 None Full Exam - General 1994 Musculoskeletal gait and station Overall: normal station 02/17/2019 None Full Exam - General 1994 Musculoskeletal head and neck Overall: head atraumatic 02/17/2019 None Full Exam - General 1994 Neurologic cranial nerves Overall: crainial nerves 2 - 12 grossly intact 02/17/2019 None Full Exam - General 1994 Psychiatric orientation/consciousness Overall: oriented to person, place and time 02/17/2019 None Full Exam - General 1994 Psychiatric mood and affect Overall: normal mood and affect 02/17/2019 None Full Exam - General 1994 Psychiatric appearance Overall: well-groomed, good eye contact 02/17/2019 None Full Exam - General 1994 Constitutional [...] No Procedures data Vital Signs Date Vital 03/04/2019 Blood Pressure 1: 154/82 Code: 8480-6 BMI: 22.0 Code: 63925-2 Heart Rate 1: 86 bpm Height: 5'3" SpO2: 96% Weight: 124 lbs 02/17/2019 Blood Pressure 1: 164/58 Code: 8480-6 BMI: 22.0 Code: 32630-4 Heart Rate 1: 82 bpm Height: 5'3" SpO2: 96% Weight: 124 lbs 11/21/2018 Blood Pressure 1: 140/70 Code: 8480-6 BMI: 22.9 Code: 23367-3 Heart Rate 1: 100 bpm Height: 5'3" SpO2: 96% Weight: 129 lbs 11/07/2018 Blood Pressure 1: 126/72 Code: 8480-6 BMI: 22.9 Code: 49605-5 Heart Rate 1: 80 bpm Height: 5'3" SpO2: 98% Weight: 129 lbs Functional Status No Functional Status data History of Present Illness Symptom Name Status Resu lt Effective Date Notes Quality chronic 03/04/2019 None Onset and Resolution o ngoing 03/04/2019 None Onset of Symptom durin g adulthood 03/04/2019 None Pertinent Findings Den ies dyspnea 03/04/2019 None Blood Pressure Values not checking blood pressure at home 03/04/2019 None Pertinent Findings Den ies dizziness 03/04/2019 None Quality intermittent 03/04/2019 None Onset and Resolution g radual in onset 03/04/2019 None Severity mild 03/04/2019 None Pertinent Findings dec reased energy level 03/04/2019 None Pertinent Findings cough 03/04/2019 None Quality chronic 02/17/2019 None Onset and Resolution o ngoing 02/17/2019 None Pertinent Findings Den ies dyspnea 02/17/2019 None Onset of Symptom durin g adulthood 02/17/2019 None Location on the left 11/21/2018 None Quality [...] Encounters Encounter Performer Loca tion Codes Date ([id number]) 10521 EST. P [facility], LEVEL IV Diagnosis: Essential (primary) hypertension[ICD10: I10] Diagnosis: Low back pain[ICD10: M54.5] Diagnosis: Other allergic rhinitis[ICD10: J30.89] Michelle Pruitt MD, [facility] CPT-4: 34647 03/04/2019 ([id number]) 12523 EST. P [facility], LEVEL III Diagnosis: Essential (primary) hypertension[ICD10: I10] Michelle Pruitt MD, C CPT-4: 86277 02/17/2019 ([id number]) 43214 EST. P ATIENT, LEVEL III Diagnosis: Pain in left wrist[ICD10: M25.532] Diagnosis: Essential (primary) hypertension[ICD10: I10] Michelle Pruitt MD, C CPT-4: 49320 11/21/2018 OFFICE VISIT, NEW - LEVEL 3 Diagnosis: Essential (primary) hypertension[ICD10: I10] Diagnosis: Generalized anxiety disorder[ICD10: F41.1] Diagnosis: Major depressive disorder, single episode, moderate[ICD10: F32.1] Madison Pruitt MD, [facility] CPT-4: 79190 11/07/2018 Plan of Care Planned Activity Notes C odes Status Date Visit Plan: Hypertension - uncontro lled - the patient's medications have been modified as documented in the visit note. The patient has been counseled to cut back on salt in diet for a no added salt diet, low fat d iet, start an exercise program with low weight bearing exercises and higher aerobic activity for heart health. The patient is to check blood pressure readings as an outpatient and either fax, call, or email the readings to the office next week for practitioner to review. The pt is to call for acute concerns. referral to physical therapy for back pain Flonase or Nasonex over the counter Nasal spray- use twice daily, one spray per nostril twice daily, after 30 minutes, rinse out nose with saline spray.. Use opposite hand per nostril to spray in the nasal steroid allergy spray. Low back pain- the patient was instructed in appropriate posture, need for weight loss to alleviate abdominal obesity that is worsening the patient's back pain.. The pt is to use prn antiinflammatories to manage acute pain. The patient is to call the office if the pain is worsening or does not improve. Referral to physical therapy for back pain treatment/stretches. 03/04/2019 Appointment: Michelle Pruitt WPtel: [address] [place], [place] [id number] (30 min) Complex 03/04/2019 Patient Education: Patient Medication Summary Completed 03/04/2019 Patient Education: Back Pain Completed 03/04/2019 Visit Plan: Hypertension - uncontro lled - the patient's medications have been modified as documented in the visit note. The patient has been counseled to cut back on salt in diet for a no added salt diet, low fat d iet, start an exercise program with low weight bearing exercises and higher aerobic activity for heart health. The patient is to check blood pressure readings as an outpatient and either fax, call, or email the readings to the office next week for practitioner to review. The pt is to call for acute concerns. take an extra dose of lisinopril today- and she needs to record bp's at home, call if consistently above 160 - rtc in 2 weeks for re-eval 02/17/2019 Appointment: Michelle Pruitt WPtel: [phone] [facility] (30 min) Complex 02/17/2019 Patient Education: Patient Medication Summary Completed 02/17/2019 Patient Education: Depression Completed 02/17/2019 [facility]ment[facility] [phone] [id number] (15 min) Moderate 12/09/2018 Visit Plan: Left wrist pain - impro perri - continue with splint PRN. Hypertension - well controlled - continue with current medications, continue with no added salt diet. Pt has been encouraged to exercise daily. The pt has been advised to call the office if there are any acute concerns about change in blood pressure readings at home. 11/21/2018 Appointment: [facility] [phone] [facility] [facility] ([facility] min) Complex 11/21/2018 Patient Education: Patient Medication Summary Completed [...] at home. 11/07/2018 Appointment: Madison Benitez [facility]el[facility] [facility] 11/07/2018 Patient Education: Patient Medication [...] change in blood pressure readings at home. . Hypertension - unc ontrolled - the patient's medications have been modified as documented in the visit note. The patient has been counseled to cut back on salt in diet for a no added salt diet, low fat diet, start an exercise program with low weight bearing exercises and higher aerobic activity for heart health. The patient is to check blood pressure readings as an outpatient and either fax, call, or email the readings to the office next week for practitioner to review. The pt is to call for acute concerns. take an extra dose of lisinopril today- and she needs to record bp's at home, call if consistently above 160 - rtc in 2 weeks for re-eval increase the lisinop ril to 20mg daily - take two of the 10mg pills Flonase or Nasonex over the counter Nasal spray- use twice daily, one spray per nostril twice daily, after 30 minutes, rinse out nose with saline spray.. Use opposite hand per nostril to spray in the nasal steroid allergy spray. . Hypertension - uncontrolled - the jorje ent's medications have been modified as documented in the visit note. The patient has been counseled to cut back on salt in diet for a no added salt diet, low fat diet, start an exercise program with low weight bearing exercises and higher aerobic activity for heart health. The patient is to check blood pressure readings as an outpatient and either fax, call, or email the readings to the office next week for practitioner to review. The pt is to call for acute concerns. referral to physical therapy for back pain Flonase or Nasonex over the counter Nasal spray- use twice daily, one spray per nostril twice daily, after 30 minutes, rinse out nose with saline spray.. Use opposite hand per nostril to spray in the nasal steroid allergy spray. Low back pain- the patient was instructed in appropriate posture, need for weight loss to alleviate abdominal obesity that is worsening the patient's back pain.. The pt is to use prn antiinflammatories to manage acute pain. The patient is to call the office if the pain is worsening or does not improve. Referral to physical therapy for back pain treatment/stretches.
--- OUTSIDE RECORDS SUMMARY | 2020-02-28 02:41 | XMS REPORT | CCD ---
Author Author Lisy Benitez Organization Michelle Pruitt MD, [facility] Address [address] [place] [address] Phone Care Team Providers Care Filling Machine Operator Name Role Phone PP Unavailable CCM Unavailable Summary Purpose Interface Exchange Insurance Providers Payer name Policy type / Coverage type Covered democrat ID Effective Begin Date Effective End Date WPS Medicare Part B Medicare Part B [id number] Unknown Unknown AARP Medicare Part B [id number] Unknown Unknown Family history Mother Diagnosis Age [...] Retir ed 11/07/[address]: 7702775 Quit over 10 years ago 1974 11/07/[address]: 504772035 Never drinks alcohol 11/07/2018 Allergies, Adverse Reactions, [...] Date Stop Date Sta tus Fill Instructions lisinopril 20 mg tablet RxNorm: 351122 1 Tablet(s) PO daily 03/04/2019 11/28/2019 Active famotidine 20 mg tablet RxNorm: 072562 1 Tablet(s) PO BID 02/12/2019 06/11/2019 Active lisinopril 10 mg tablet RxNorm: 898849 1 Tablet(s) PO daily 02/12/2019 02/11/2019 Inactive lisinopril 10 mg tablet RxNorm: 490249 1 Tablet(s) PO daily 02/12/2019 03/03/2019 Inactive famotidine 20 mg tablet RxNorm: 975881 1 Tablet(s) PO BID 02/12/2019 02/11/2019 Inactive Prozac 20 mg capsule RxNorm: 023897 1 Capsule(s) PO BID 12/09/2018 04/07/2019 Active Prozac 20 mg capsule RxNorm: 048017 1 Capsule(s) PO BID 11/07/2018 12/06/2018 Inactive Fish Oil 1,000 mg ca psule RxNorm: 1200 Capsule(s) PO BID No Start Date Active vitamin E (dl, aceta te) 400 unit capsule RxNorm: 254754 1 Capsule(s) PO daily No Start Date Active Aspirin Low Dose 81 mg tablet,delayed release RxNorm: 565754 1 Tablet(s) PO daily No Start Date Active docusate sodium 250 mg capsule RxNorm: 2942365 1 Capsule(s) PO daily No Start Date Active famotidine 20 mg tablet RxNorm: 049582 1 Tablet(s) PO BID No Start Date 02/11/2019 Inactive lisinopril 10 mg tablet RxNorm: 194971 1 Tablet(s) PO daily No Start Date 02/11/2019 Inactive bupropion HCl SR 200 mg tablet,12 hr sustained-release RxNorm: 169982 1 Tablet(s) PO BID No Start Date [...] Item Item Code Result Date Comp Metabolic Hcz881 NA 140 mEq/L 02/18/2019 Comp Metabolic Pct091 K 4.1 mEq/L 02/18/2019 Comp Metabolic Qzs583 CL 103 mEq/L 02/18/2019 Comp Metabolic Mkg337 CO2 27.0 mEq/L 02/18/2019 Comp Metabolic Jfr718 AN ION GAP 14 02/18/2019 Comp Metabolic Igq786 GL UCOSE 103 mg/dL 02/18/2019 Comp Metabolic Nec783 Cr eat 0.9 mg/dL 02/18/2019 Comp Metabolic Pzk114 eG FR 65 ml/min/1.73m2 02/18 Comp Metabolic Xsq726 BUN 16 mg/dL 02/18/2019 Comp Metabolic Onx559 B/ C Ratio 17.8 Ratio 02/18/2019 Comp Metabolic Yvi478 CA LCIUM 9.3 mg/dL 02/18/2019 Comp Metabolic Obj129 AL K PHOS 78 U/L 02/18/2019 Comp Metabolic Iqi060 T(SGOT) 19 U/L 02/18/2019 Comp Metabolic Kfv607 AL T(SGPT) 14 U/L 02/18/2019 Comp Metabolic Tev793 BI LI T 1.0 mg/dL 02/18/2019 Comp Metabolic Ugz625 AL BUMIN 4.3 g/dL 02/18/2019 Comp Metabolic Wqh692 TP RO 7.0 g/dL 02/18/2019 Comp Metabolic Hxv939 GL OB 2.7 g/dL 02/18/2019 Comp Metabolic Aer225 A/ G Ratio 1.6 Ratio 02/18/2019 Comp Metabolic Gii720 Os mo 281 mOsmo 02/18/2019 Lipid Ord30 [...] 29.9 pg 02/18/2019 Cbc With Differential Ord2 Cowley% 9.1 % 02/18/2019 Cbc With Differential Ord2 [...] 2.54 K/ul 02/18/2019 Cbc With Differential Ord2 [place] ABS# 0.5 K/ul 02/18/2019 Cbc With Differential [...] 1: 154/82 Code: 8480-6 BMI: 22.0 Code: 94394-1 Heart Rate 1: 86 bpm Height: 5'3" SpO2: 96% Weight: 124 lbs 02/17/2019 Blood Pressure 1: 164/58 Code: 8480-6 BMI: 22.0 Code: 41412-7 Heart Rate 1: 82 bpm Height: 5'3" SpO2: 96% Weight: 124 lbs 11/21/2018 Blood Pressure 1: 140/70 Code: 8480-6 BMI: 22.9 Code: 23504-8 Heart Rate 1: 100 bpm Height: 5'3" SpO2: 96% Weight: 129 lbs 11/07/2018 Blood Pressure 1: 126/72 Code: 8480-6 BMI: 22.9 Code: 43607-4 Heart Rate 1: 80 bpm Height: 5'3" [...] Encounters Encounter Performer Loca tion Codes Date ([id number]) 47116 EST. P ATIENT, LEVEL IV Diagnosis: Essential (primary) hypertension[ICD10: I10] Diagnosis: Low back pain[ICD10: M54.5] Diagnosis: Other allergic rhinitis[ICD10: J30.89] Michelle Pruitt MD, [facility] CPT-4: 22522 03/04/2019 ([id number]) 07508 EST. P ATIENT, LEVEL III Diagnosis: Essential (primary) hypertension[ICD10: I10] Michelle Pruitt MD, [facility] CPT-4: 56191 02/17/2019 [id number] EST. P ATIENT, LEVEL III Diagnosis: Pain in left wrist[ICD10: M25.532] Diagnosis: Essential (primary) hypertension[ICD10: I10] Michelle Pruitt MD, [facility] CPT-4: 55144 11/21/2018 OFFICE VISIT, NEW - LEVEL 3 Diagnosis: Essential (primary) hypertension[ICD10: I10] Diagnosis: Generalized anxiety disorder[ICD10: F41.1] Diagnosis: Major depressive disorder, single episode, moderate[ICD10: F32.1] Madison Pruitt MD, [facility] CPT-4: 78488 11/07/2018 Plan of Care Planned Activity Notes [...] physical therapy for back pain treatment/stretches. 03/04/2019 Patient Education: Patient Medication Summary Completed [...] for re-eval 02/17/2019 Appointment: Michelle Pruitt WPtel: [facility]4 [facility] (30 min) Complex 02/17/2019 Patient Education: Patient Medication Summary Completed 02/17/2019 Patient Education: Depression Completed 02/17/2019 Appointment: Madison Benitez WPtel: [facility]66[facility] (15 min) Moderate 12/09/2018 Visit Plan: Left [...] at home. 11/21/2018 Appointment: Michelle Pruitt WPtel: [facility]0 [facility] (30 min) Complex 11/21/2018 Patient Education: Patient [...] at home. 11/07/2018 Appointment: Madison Benitez WPtel: [facility]0 [facility] New Patient 11/07/2018 Patient Education: Patient Medication [...]
--- OUTSIDE RECORDS SUMMARY | 2020-02-28 02:41 | XMS REPORT | CCD ---
Author Lisy Bowen MD, [facility] Address [address] [place] [address] Phone Care Team Providers Care Zyglo Inspector Name Role Phone PP Unavailable CCM Unavailable Summary Purpose Interface Exchange Insurance Providers Payer name Policy type / Coverage type Covered constitution party ID Effective Begin Date Effective End Date WPS Medicare Part B Medicare Part B [id number] Unknown Unknown AARP Medicare Part B [id number] Unknown Unknown Family history Mother Diagnosis Age At Onset Hyperlipidemia Unknown Diabetes mellitus Type 2 Unknown Asthma Unknown Hypertension Unknown Father Diagnosis Age At Onset Stroke Unknown Heart Attack Unknown Asthma Unknown Social History Social History Element Codes Description Effective Dates Marital status Unknown W idowed 11/07/2018 Number of children Unknown 3 11/07/2018 Employment Unknown Retir ed 11/07/[address]: 3141244 Quit over 10 years ago 1974 11/07/[address]: 961871687 Never drinks alcohol 11/07/2018 Allergies, Adverse Reactions, [...] Fill Instructions Prozac 20 mg capsule RxNorm: 316555 1 Capsule(s) PO BID 11/07/2018 12/06/2018 Active famotidine 20 mg tablet RxNorm: 295448 1 Tablet(s) PO BID No Start Date Active lisinopril 10 mg tablet RxNorm: 975685 1 Tablet(s) PO daily No Start Date Active vitamin E (dl, aceta te) 400 unit capsule RxNorm: 086788 1 Capsule(s) PO daily No Start Date Active Aspirin Low Dose 81 mg tablet,delayed release RxNorm: 113526 1 Tablet(s) PO daily No Start Date Active docusate sodium 250 mg capsule RxNorm: 5322599 1 Capsule(s) PO daily No Start Date Active bupropion HCl SR 200 mg tablet,12 hr sustained-release RxNorm: 354637 1 Tablet(s) PO BID No Start Date [...] 1: 126/72 Code: 8480-6 BMI: 22.9 Code: 20789-0 Heart Rate 1: 80 bpm Height: 5'3" [...] moderate[ICD10: F32.1] [facility] CPT-4: 11175 11/07/2018 Plan of Care Planned Activity Notes [...] home. 11/07/2018 Appointment: [facility]el[facility] [phone] [facility] [place] New Patient 11/07/2018 Patient Education: Patient [...]
--- OUTSIDE RECORDS SUMMARY | 2020-02-28 02:41 | XMS REPORT | CCD ---
Author Author Lisy Benitez MD, [facility] Address [address] [place] [address] Phone Care Team Providers Care Insulation Installer Name Role Phone PP Unavailable CCM Unavailable Summary Purpose Interface Exchange Insurance Providers Payer name Policy type / Coverage type Covered democrat ID Effective Begin Date Effective End Date WPS Medicare Part B Medicare Part B [id number] Unknown Unknown AARP Medicare Part B [id number] Unknown Unknown Family history Mother Diagnosis Age At Onset Hyperlipidemia Unknown Diabetes mellitus Type 2 Unknown Asthma Unknown Hypertension Unknown Father Diagnosis Age At Onset Stroke Unknown Heart Attack Unknown Asthma Unknown Social History Social History Element Codes Description Effective Dates Marital status Unknown W idowed 11/07/2018 Number of children Unknown 3 11/07/2018 Employment Unknown Retir ed 11/07/[address]: 9447423 Quit over 10 years ago 1974 11/07/[address]: 260547189 Never drinks alcohol 11/07/2018 Allergies, Adverse Reactions, [...] Fill Instructions Prozac 20 mg capsule RxNorm: 708063 1 Capsule(s) PO BID 12/09/2018 04/07/2019 Active Prozac 20 mg capsule RxNorm: 804786 1 Capsule(s) PO BID 11/07/2018 12/06/2018 Inactive famotidine 20 mg tablet RxNorm: 377118 1 Tablet(s) PO BID No Start Date Active lisinopril 10 mg tablet RxNorm: 505784 1 Tablet(s) PO daily No Start Date Active vitamin E (dl, aceta te) 400 unit capsule RxNorm: 131497 1 Capsule(s) PO daily No Start Date Active Aspirin Low Dose 81 mg tablet,delayed release RxNorm: 669221 1 Tablet(s) PO daily No Start Date Active docusate sodium 250 mg capsule RxNorm: 4457964 1 Capsule(s) PO daily No Start Date Active bupropion HCl SR 200 mg tablet,12 hr sustained-release RxNorm: 469330 1 Tablet(s) PO BID No Start Date [...] 1: 140/70 Code: 8480-6 BMI: 22.9 Code: 49490-8 Heart Rate 1: 100 bpm Height: 5'3" SpO2: 96% Weight: 129 lbs 11/07/2018 Blood Pressure 1: 126/72 Code: 8480-6 BMI: 22.9 Code: 78800-9 Heart Rate 1: 80 bpm Height: 5'3" [...] Encounters Encounter Performer Loca tion Codes Date ([id number]) 59720 EST. P ATIENT, LEVEL III Diagnosis: Pain in left wrist[ICD10: M25.532] Diagnosis: Essential (primary) hypertension[ICD10: I10] Michelle Pruitt MD, [facility] CPT-4: 28487 11/21/2018 OFFICE VISIT, NEW - LEVEL 3 Diagnosis: Essential (primary) hypertension[ICD10: I10] Diagnosis: Generalized anxiety disorder[ICD10: F41.1] Diagnosis: Major depressive disorder, single episode, moderate[ICD10: F32.1] Madison Pruitt MD, [facility] CPT-4: 80860 11/07/2018 Plan of Care Planned Activity Notes [...] at home. 11/21/2018 Appointment: [facility]el[facility] [phone] [facility] (30 min) Complex 11/21/2018 Patient Education: [...] home. 11/07/2018 Appointment: [facility] Ben[facility] [phone] [facility] New Patient 11/07/2018 Patient Education: Patient Medication [...]
--- OUTSIDE RECORDS SUMMARY | 2020-02-28 02:42 | XMS REPORT | Continuity of Care Document ---
Demographics Preferred Language Unknown Marital Status Unknown Episcopal Affiliation Unknown Race Unknown Ethnic Group Unknown Author Organization Unknown Address Unknown Phone Unavailable Allergies Active Description [...] ALL O 02/27/2014 Yes Sulfa (Sulfonamide Antibiotics) [id number] Drug Allergy Unknown ITCHINESS TO LE 02/27/2014 Yes Penicillins [id number] Drug Aller gy Moderate ITCHING ALL OVE 06/06/2016 Medications There is no data. Problems Date Dx Coded Attending Type Code Diagnosis Diagnosed By 07/05/1057 MIGUEL RING, MEENA Hemphill Ot M54.6 PAIN IN THORACIC SPINE 04/17/2008 401.1 HYPE RTENSION, BENIGN ESSENTIAL 04/17/2008 535.50 Gas tritis Unspec 04/17/2008 780.1 Bay ucinations 04/17/2008 GABBY INSPECTOR AND MENDER, ROSEANN S 401.1 HYPERTENSION, BENIGN ESSENTIAL 04/17/2008 GABBY INSPECTOR AND MENDER, ROSEANN S 535.50 Gastritis Unspec 04/17/2008 GABBY INSPECTOR AND MENDER, ROSEANN S 780.1 Hallucinations 04/17/2008 GABBY LEYVA ROSEANN S 401.1 HYPERTENSION, BENIGN ESSENTIAL 04/17/2008 GABBY INSPECTOR AND MENDER, ROSEANN S 535.50 Gastritis Unspec 04/17/2008 GABBY INSPECTOR AND MENDER, ROSEANN S 780.1 Hallucinations 04/17/2008 GABBY INSPECTOR AND MENDER, ROSEANN S 401.1 HYPERTENSION, BENIGN ESSENTIAL 04/17/2008 GABBY LEYVA ROSEANN S 535.50 Gastritis Unspec 04/17/2008 GABBY LEYVA, ROSEANN S 780.1 Hallucinations 04/17/2008 401.1 HYPE RTENSION, BENIGN ESSENTIAL 04/17/2008 535.50 Gas tritis Unspec 04/17/2008 780.1 Marcus ucinations 04/17/2008 401.1 HYPE RTENSION, BENIGN ESSENTIAL 04/17/2008 535.50 Gas tritis Unspec 04/17/2008 780.1 Marcus ucinations 04/17/2008 GABBY INSPECTOR AND MENDER, ROSEANN S 401.1 HYPERTENSION, BENIGN ESSENTIAL 04/17/2008 GABBY INSPECTOR AND MENDER, ROSEANN S 535.50 Gastritis Unspec 04/17/2008 GABBY INSPECTOR AND MENDER, ROSEANN S 780.1 Hallucinations 04/17/2008 GABBY LEYVA ROSEANN S 401.1 HYPERTENSION, BENIGN ESSENTIAL 04/17/2008 GABBY LEYVA ROSEANN S 535.50 Gastritis Unspec 04/17/2008 GABBY LEYVA ROSEANN S 780.1 Hallucinations 04/17/2008 RENEE PIERRE APRNNDA S 401.1 HYPERTENSION, BENIGN ESSENTIAL 04/17/2008 GABBY LEYVA ROSEANN S 535.50 Gastritis Unspec 04/17/2008 GABBY LEYVA, ROSEANN S 780.1 Hallucinations 04/17/2008 GABBY LEYVA ROSEANN S 401.1 HYPERTENSION, BENIGN ESSENTIAL 04/17/2008 GABBY LEYVA, ROSEANN S 535.50 Gastritis Unspec 04/17/2008 GABBY INSPECTOR AND MENDER, ROSEANN S 780.1 Hallucinations 04/17/2008 GABBY LEYVA ROSEANN S 401.1 HYPERTENSION, BENIGN ESSENTIAL 04/17/2008 GABBY LEYVA, ROSEANN S 535.50 Gastritis Unspec 04/17/2008 GABBY INSPECTOR AND MENDER, ROSEANN S 780.1 Hallucinations 04/17/2008 GABBY LEYVA ROSEANN S 401.1 HYPERTENSION, BENIGN ESSENTIAL 04/17/2008 GABBY LEYVA ROSEANN S 535.50 Gastritis Unspec 04/17/2008 GABBY LEYVA ROSEANN S 780.1 Hallucinations 04/17/2008 FAVIOLA DE LA ROSA APRN 401. 1 HYPERTENSION, BENIGN ESSENTIAL 04/17/2008 FAVIOLA DE LA ROSA APRN 535. 50 Gastritis Unspec 04/17/2008 FAVIOLA DE LA ROSA APRN 780. 1 Hallucinations 07/08/2008 780.52 Ins omnia Unspecified 07/08/2008 V58.69 Med ication High Risk 07/08/2008 GABBY HALLN, ROSEANN S 780.52 Insomnia Unspecified 07/08/2008 GABBY INSPECTOR AND MENDER, ROSEANN S V58.69 Medication High Risk 07/08/2008 GABBY HALLN, ROSEANN S 780.52 Insomnia Unspecified 07/08/2008 GABBY INSPECTOR AND MENDER, ROSEANN S V58.69 Medication High Risk 07/08/2008 GABBY HALLN, ROSEANN S 780.52 Insomnia Unspecified 07/08/2008 GABBY INSPECTOR AND MENDER, ROSEANN S V58.69 Medication High Risk 07/08/2008 780.52 Ins omnia Unspecified 07/08/2008 V58.69 Med ication High Risk 07/08/2008 780.52 Ins omnia Unspecified 07/08/2008 V58.69 Med ication High Risk 07/08/2008 GABBY HALLN, ROSEANN S 780.52 Insomnia Unspecified 07/08/2008 GABBY INSPECTOR AND MENDER, ROSEANN S V58.69 Medication High Risk 07/08/2008 GABBY INSPECTOR AND MENDER, ROSEANN S 780.52 Insomnia Unspecified 07/08/2008 GABBY INSPECTOR AND MENDER, RSOEANN S V58.69 Medication High Risk 07/08/2008 GABBY INSPECTOR AND MENDER, ROSEANN S 780.52 Insomnia Unspecified 07/08/2008 GABBY INSPECTOR AND MENDER, ROSEANN S V58.69 Medication High Risk 07/08/2008 GABBY INSPECTOR AND MENDER, ROSEANN S 780.52 Insomnia Unspecified 07/08/2008 GABBY INSPECTOR AND MENDER, ROSEANN S V58.69 Medication High Risk 07/08/2008 GABBY INSPECTOR AND MENDER, ROSEANN S 780.52 Insomnia Unspecified 07/08/2008 GABBY INSPECTOR AND MENDER, ROSEANN S V58.69 Medication High Risk 07/08/2008 GABBY INSPECTOR AND MENDER, ROSEANN S 780.52 Insomnia Unspecified 07/08/2008 GABBY HALLN, ROSEANN S V58.69 Medication High Risk 07/08/2008 FAVIOLA DE LA ROSA APRN 780. 52 Insomnia Unspecified 07/08/2008 FAVIOLA DE LA ROSA APRN V58. 69 Medication High Risk 06/16/2009 733.00 OST EOPOROSIS, UNSPECIFIED 06/16/2009 GABBY INSPECTOR AND MENDER, ROSEANN S 733.00 OSTEOPOROSIS, UNSPECIFIED 06/16/2009 GABBY INSPECTOR AND MENDER, ROSEANN S 733.00 OSTEOPOROSIS, UNSPECIFIED 06/16/2009 GABBY INSPECTOR AND MENDER, ROSEANN S 733.00 OSTEOPOROSIS, UNSPECIFIED 06/16/2009 733.00 OST EOPOROSIS, UNSPECIFIED 06/16/2009 733.00 OST EOPOROSIS, UNSPECIFIED 06/16/2009 GABBY INSPECTOR AND MENDER, ROSEANN S 733.00 OSTEOPOROSIS, UNSPECIFIED 06/16/2009 GABBY INSPECTOR AND MENDER, ROSEANN S 733.00 OSTEOPOROSIS, UNSPECIFIED 06/16/2009 GABBY INSPECTOR AND MENDER, ROSEANN S 733.00 OSTEOPOROSIS, UNSPECIFIED 06/16/2009 GABBY INSPECTOR AND MENDER, ROSEANN S 733.00 OSTEOPOROSIS, UNSPECIFIED 06/16/2009 GABBY INSPECTOR AND MENDER, ROSEANN S 733.00 OSTEOPOROSIS, UNSPECIFIED 06/16/2009 GABBY INSPECTOR AND MENDER, ROSEANN S 733.00 OSTEOPOROSIS, UNSPECIFIED 06/16/2009 FAVIOLA DE LA ROSA APRN 733. 00 OSTEOPOROSIS, UNSPECIFIED 09/23/2009 300.00 ANX IETY STATE, UNSPECIFIED 09/23/2009 702.0 Acti melvina Keratosis 09/23/2009 799.81 Dec reased Libido 09/23/2009 GABBY INSPECTOR AND MENDER, ROSEANN S 300.00 ANXIETY STATE, UNSPECIFIED 09/23/2009 GABBY INSPECTOR AND MENDER, ROSEANN S 702.0 Actinic Keratosis 09/23/2009 GABBY INSPECTOR AND MENDER, ROSEANN S 799.81 Decreased Libido 09/23/2009 GABBY INSPECTOR AND MENDER, ROSEANN S 300.00 ANXIETY STATE, UNSPECIFIED 09/23/2009 GABBY INSPECTOR AND MENDER, ROSEANN S 702.0 Actinic Keratosis 09/23/2009 GABBY INSPECTOR AND MENDER, ROSEANN S 799.81 Decreased Libido 09/23/2009 GABBY INSPECTOR AND MENDER, ROSEANN S 300.00 ANXIETY STATE, UNSPECIFIED 09/23/2009 GABBY INSPECTOR AND MENDER, ROSEANN S 702.0 Actinic Keratosis 09/23/2009 GABBY INSPECTOR AND MENDER, ROSEANN S 799.81 Decreased Libido 09/23/2009 300.00 ANX IETY STATE, UNSPECIFIED 09/23/2009 702.0 Acti melvina Keratosis 09/23/2009 799.81 Dec reased Libido 09/23/2009 300.00 ANX IETY STATE, UNSPECIFIED 09/23/2009 702.0 Acti melvina Keratosis 09/23/2009 799.81 Dec reased Libido 09/23/2009 GABBY INSPECTOR AND MENDER, ROSEANN S 300.00 ANXIETY STATE, UNSPECIFIED 09/23/2009 GABBY INSPECTOR AND MENDER, ROSEANN S 702.0 Actinic Keratosis 09/23/2009 GABBY INSPECTOR AND MENDER, ROSEANN S 799.81 Decreased Libido 09/23/2009 GABBY INSPECTOR AND MENDER, ROSEANN S 300.00 ANXIETY STATE, UNSPECIFIED 09/23/2009 GABBY INSPECTOR AND MENDER, ROSEANN S 702.0 Actinic Keratosis 09/23/2009 GABBY INSPECTOR AND MENDER, ROSEANN S 799.81 Decreased Libido 09/23/2009 GABBY INSPECTOR AND MENDER, ROSEANN S 300.00 ANXIETY STATE, UNSPECIFIED 09/23/2009 GABBY INSPECTOR AND MENDER, ROSEANN S 702.0 Actinic Keratosis 09/23/2009 GABBY INSPECTOR AND MENDER, ROSEANN S 799.81 Decreased Libido 09/23/2009 GABBY INSPECTOR AND MENDER, ROSEANN S 300.00 ANXIETY STATE, UNSPECIFIED 09/23/2009 GABBY INSPECTOR AND MENDER, ROSEANN S 702.0 Actinic Keratosis 09/23/2009 GABBY INSPECTOR AND MENDER, ROSEANN S 799.81 Decreased Libido 09/23/2009 GABBY INSPECTOR AND MENDER, ROSEANN S 300.00 ANXIETY STATE, UNSPECIFIED 09/23/2009 GABBY INSPECTOR AND MENDER, ROSEANN S 702.0 Actinic Keratosis 09/23/2009 GABBY INSPECTOR AND MENDER, ROSEANN S 799.81 Decreased Libido 09/23/2009 GABBY INSPECTOR AND MENDER, ROSEANN S 300.00 ANXIETY STATE, UNSPECIFIED 09/23/2009 GABBY INSPECTOR AND MENDER, ROSEANN S 702.0 Actinic Keratosis 09/23/2009 GABBY INSPECTOR AND MENDER, ROSEANN S 799.81 Decreased Libido 09/23/2009 FAVIOLA DE LA ROSA APRN 300. 00 ANXIETY STATE, UNSPECIFIED 09/23/2009 FAVIOLA DE LA ROSA APRN 702. 0 Actinic Keratosis 09/23/2009 FAVIOLA DE LA ROSA APRN 799. 81 Decreased Libido 03/15/2010 465.9 Uppe r Respiratory Infection 03/15/2010 786.2 Cough 03/15/2010 GABBY INSPECTOR AND MENDER, ROSEANN S 465.9 Upper Respiratory Infection 03/15/2010 GABBY INSPECTOR AND MENDER, ROSEANN S 786.2 Cough 03/15/2010 GABBY INSPECTOR AND MENDER, ROSEANN S 465.9 Upper Respiratory Infection 03/15/2010 GABBY INSPECTOR AND MENDER, ROSEANN S 786.2 Cough 03/15/2010 GABBY INSPECTOR AND MENDER, ROSEANN S 465.9 Upper Respiratory Infection 03/15/2010 GABBY INSPECTOR AND MENDER, ROSEANN S 786.2 Cough 03/15/2010 465.9 Uppe r Respiratory Infection 03/15/2010 786.2 Cough 03/15/2010 465.9 Uppe r Respiratory Infection 03/15/2010 786.2 Cough 03/15/2010 GABBY INSPECTOR AND MENDER, ROSEANN S 465.9 Upper Respiratory Infection 03/15/2010 GABBY INSPECTOR AND MENDER, ROSEANN S 786.2 Cough 03/15/2010 GABBY INSPECTOR AND MENDER, ROSEANN S 465.9 Upper Respiratory Infection 03/15/2010 GABBY INSPECTOR AND MENDER, ROSEANN S 786.2 Cough 03/15/2010 GABBY INSPECTOR AND MENDER, ROSEANN S 465.9 Upper Respiratory Infection 03/15/2010 GABBY INSPECTOR AND MENDER, ROSEANN S 786.2 Cough 03/15/2010 GABBY INSPECTOR AND MENDER, ROSEANN S 465.9 Upper Respiratory Infection 03/15/2010 GABBY INSPECTOR AND MENDER, ROSEANN S 786.2 Cough 03/15/2010 GABBY INSPECTOR AND MENDER, ROSEANN S 465.9 Upper Respiratory Infection 03/15/2010 GABBY INSPECTOR AND MENDER, ROSEANN S 786.2 Cough 03/15/2010 GABBY INSPECTOR AND MENDER, ROSEANN S 465.9 Upper Respiratory Infection 03/15/2010 GABBY INSPECTOR AND MENDER, ROSEANN S 786.2 Cough 03/15/2010 DE LA ROSA INSPECTOR AND MENDER, FAVIOLA D 465. 9 Upper Respiratory Infection 03/15/2010 DE LA ROSA INSPECTOR AND MENDERFAVIOLA Soto D 786. 2 Cough 08/09/2010 780.79 OTH ER MALAISE AND FATIGUE 08/09/2010 780.96 GEN ERALIZED PAIN 08/09/2010 GABBY INSPECTOR AND MENDER, ROSEANN S 780.79 OTHER MALAISE AND FATIGUE 08/09/2010 GABBY INSPECTOR AND MENDER, ROSEANN S 780.96 GENERALIZED PAIN 08/09/2010 GABBY INSPECTOR AND MENDER, ROSEANN S 780.79 OTHER MALAISE AND FATIGUE 08/09/2010 GABBY INSPECTOR AND MENDER, ROSEANN S 780.96 GENERALIZED PAIN 08/09/2010 GABBY INSPECTOR AND MENDER, ROSEANN S 780.79 OTHER MALAISE AND FATIGUE 08/09/2010 GABBY INSPECTOR AND MENDER, ROSEANN S 780.96 GENERALIZED PAIN 08/09/2010 780.79 OTH ER MALAISE AND FATIGUE 08/09/2010 780.96 GEN ERALIZED PAIN 08/09/2010 780.79 OTH ER MALAISE AND FATIGUE 08/09/2010 780.96 GEN ERALIZED PAIN 08/09/2010 GABBY INSPECTOR AND MENDER, ROSEANN S 780.79 OTHER MALAISE AND FATIGUE 08/09/2010 GABBY INSPECTOR AND MENDER, ROSEANN S 780.96 GENERALIZED PAIN 08/09/2010 GABBY INSPECTOR AND MENDER, ROSEANN S 780.79 OTHER MALAISE AND FATIGUE 08/09/2010 GABBY INSPECTOR AND MENDER, ROSEANN S 780.96 GENERALIZED PAIN 08/09/2010 GABBY INSPECTOR AND MENDER, ROSEANN S 780.79 OTHER MALAISE AND FATIGUE 08/09/2010 GABBY INSPECTOR AND MENDER, ROSEANN S 780.96 GENERALIZED PAIN 08/09/2010 GABBY INSPECTOR AND MENDER, ROSEANN S 780.79 OTHER MALAISE AND FATIGUE 08/09/2010 GABBY INSPECTOR AND MENDER, ROSEANN S 780.96 GENERALIZED PAIN 08/09/2010 GABBY INSPECTOR AND MENDER, ROSEANN S 780.79 OTHER MALAISE AND FATIGUE 08/09/2010 GABBY INSPECTOR AND MENDER, ROSEANN S 780.96 GENERALIZED PAIN 08/09/2010 GABBY INSPECTOR AND MENDER, ROSEANN S 780.79 OTHER MALAISE AND FATIGUE 08/09/2010 GABBY INSPECTOR AND MENDER, ROSEANN S 780.96 GENERALIZED PAIN 08/09/2010 DE LA ROSA INSPECTOR AND MENDERMONY SotoON D 780. 79 OTHER MALAISE AND FATIGUE 08/09/2010 DE LA ROSA INSPECTOR AND MENDERFAVIOLA Soto 780. 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 12/01/2010 GABBY INSPECTOR AND MENDER, ROSEANN S 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 12/01/2010 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 12/01/2010 238.2 Neop lasm Of Uncertain Behavior Of Skin 12/01/2010 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 12/01/2010 238.2 Neop lasm Of Uncertain Behavior Of Skin 12/01/2010 GABBY INSPECTOR AND MENDER, ROSEANN S 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 12/01/2010 GABBY INSPECTOR AND MENDER, ROSEANN S 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 12/01/2010 GABBY INSPECTOR AND MENDER, ROSEANN S 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 12/01/2010 GABBY INSPECTOR AND MENDER, ROSEANN S 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 12/01/2010 GABBY INSPECTOR AND MENDER, ROSEANN S 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 12/01/2010 GABBY INSPECTOR AND MENDER, ROSEANN S 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 12/01/2010 GABBY INSPECTOR AND MENDER, ROSEANN S 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 3 Benign Neoplasm Of Colon 12/01/2010 FAVIOLA DE LA ROSA APRN 238. 2 Neoplasm Of Uncertain Behavior Of Skin 02/13/2011 702.19 Jaya orrheic Keratosis 02/13/2011 GABBY INSPECTOR AND MENDER, ROSEANN S 702.19 Seborrheic Keratosis 02/13/2011 GABBY INSPECTOR AND MENDER, ROSEANN S 702.19 Seborrheic Keratosis 02/13/2011 GABBY INSPECTOR AND MENDER, ROSEANN S 702.19 Seborrheic Keratosis 02/13/2011 702.19 Jaya orrheic Keratosis 02/13/2011 702.19 Jaya orrheic Keratosis 02/13/2011 GABBY INSPECTOR AND MENDER, ROSEANN S 702.19 Seborrheic Keratosis 02/13/2011 GABBY INSPECTOR AND MENDER, ROSEANN S 702.19 Seborrheic Keratosis 02/13/2011 GABBY INSPECTOR AND MENDER, ROSEANN S 702.19 Seborrheic Keratosis 02/13/2011 GABBY INSPECTOR AND MENDER, ROSEANN S 702.19 Seborrheic Keratosis 02/13/2011 GABBY INSPECTOR AND MENDER, ROSEANN S 702.19 Seborrheic Keratosis 02/13/2011 GABBY INSPECTOR AND MENDER, ROSEANN S 702.19 Seborrheic Keratosis 02/13/2011 FAVIOLA DE LA ROSA APRN 702. 19 Seborrheic Keratosis 06/19/2011 V03.82 PPV 23 (PNEUMOVAX) DX 06/19/2011 GABBY INSPECTOR AND MENDER ROSEANN S V03.82 PPV23 (PNEUMOVAX) DX 06/19/2011 GABBY INSPECTOR AND MENDER ROSEANN S V03.82 PPV23 (PNEUMOVAX) DX 06/19/2011 ROSEANN PIERRE APRN S V03.82 PPV23 (PNEUMOVAX) DX 06/19/2011 V03.82 PPV 23 (PNEUMOVAX) DX 06/19/2011 V03.82 PPV 23 (PNEUMOVAX) DX 06/19/2011 ROSEANN PIERRE APRN S V03.82 PPV23 (PNEUMOVAX) DX 06/19/2011 JI PIERRE APRNA S V03.82 PPV23 (PNEUMOVAX) DX 06/19/2011 GABBY INSPECTOR AND MENDERJI SotoA S V03.82 PPV23 (PNEUMOVAX) DX 06/19/2011 JI PIERRE APRNA S V03.82 PPV23 (PNEUMOVAX) DX 06/19/2011 ROSEANN PIERRE APRN S V03.82 PPV23 (PNEUMOVAX) DX 06/19/2011 ROSEANN PIERRE APRN S V03.82 PPV23 (PNEUMOVAX) DX 06/19/2011 FAVIOLA DE LA ROSA APRN D V03. 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 09/22/2011 ROSEANN PIERRE APRN S 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 ANXIETY 09/22/2011 GABBY INSPECTOR AND MENDER, ROSEANN S 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 09/22/2011 GABBY INSPECTOR AND MENDER, ROSEANN S 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 ANXIETY 09/22/2011 GABBY INSPECTOR AND MENDER, ROSEANN S 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 09/22/2011 GABBY INSPECTOR AND MENDER, ROSEANN S 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 ANXIETY 09/22/2011 GABBY INSPECTOR AND MENDER, ROSEANN S 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 02 AN GEN ANXIETY 09/22/2011 FAVIOLA DE LA ROSA APRN D 309. 0 AD ADJ D/O W DEPRESSED 12/21/2011 530.81 ESO PHAGEAL REFLUX 12/21/2011 GABBY LEYVA, ROSEANN S 530.81 ESOPHAGEAL REFLUX 12/21/2011 GABBY LEYVA, ROSEANN S 530.81 ESOPHAGEAL REFLUX 12/21/2011 GABBY LEYVA, ROSEANN S 530.81 ESOPHAGEAL REFLUX 12/21/2011 530.81 ESO PHAGEAL REFLUX 12/21/2011 530.81 ESO PHAGEAL REFLUX 12/21/2011 GABBY INSPECTOR AND MENDER, ROSEANN S 530.81 ESOPHAGEAL REFLUX 12/21/2011 GABBY INSPECTOR AND MENDER, ROSEANN S 530.81 ESOPHAGEAL REFLUX 12/21/2011 GABBY INSPECTOR AND MENDER, ROSEANN S 530.81 ESOPHAGEAL REFLUX 12/21/2011 GABBY INSPECTOR AND MENDER, ROSEANN S 530.81 ESOPHAGEAL REFLUX 12/21/2011 GABBY LEYVA, ROSEANN S 530.81 ESOPHAGEAL REFLUX 12/21/2011 GABBY HALLN, ROSEANN S 530.81 ESOPHAGEAL REFLUX 12/21/2011 RJ INSPECTOR AND MENDERFAVIOLA Soto D 530. 81 ESOPHAGEAL REFLUX 04/01/2012 593.9 GIA L INSUFFICIENCY 04/01/2012 786.2 COUGH 04/01/2012 GABBY INSPECTOR AND MENDER, ROSEANN S 593.9 RENAL INSUFFICIENCY 04/01/2012 GABBY INSPECTOR AND MENDER, ROSEANN S 786.2 COUGH 04/01/2012 GABBY INSPECTOR AND MENDER, ROSEANN S 593.9 RENAL INSUFFICIENCY 04/01/2012 GABBY INSPECTOR AND MENDER, ROSEANN S 786.2 COUGH 04/01/2012 GABBY INSPECTOR AND MENDER, ROSEANN S 593.9 RENAL INSUFFICIENCY 04/01/2012 GABBY INSPECTOR AND MENDER, ROSEANN S 786.2 COUGH 04/01/2012 593.9 GIA L INSUFFICIENCY 04/01/2012 786.2 COUGH 04/01/2012 593.9 GIA L INSUFFICIENCY 04/01/2012 786.2 COUGH 04/01/2012 GABBY INSPECTOR AND MENDER, ROSEANN S 593.9 RENAL INSUFFICIENCY 04/01/2012 GABBY INSPECTOR AND MENDER, ROSEANN S 786.2 COUGH 04/01/2012 GABBY INSPECTOR AND MENDER, ROSEANN S 593.9 RENAL INSUFFICIENCY 04/01/2012 GABBY INSPECTOR AND MENDER, ROSEANN S 786.2 COUGH 04/01/2012 GABBY INSPECTOR AND MENDER, ROSEANN S 593.9 RENAL INSUFFICIENCY 04/01/2012 GABBY INSPECTOR AND MENDER, ROSEANN S 786.2 COUGH 04/01/2012 GABBY INSPECTOR AND MENDER, ROSEANN S 593.9 RENAL INSUFFICIENCY 04/01/2012 GABBY INSPECTOR AND MENDER, ROSEANN S 786.2 COUGH 04/01/2012 GABBY INSPECTOR AND MENDER, ROSEANN S 593.9 RENAL INSUFFICIENCY 04/01/2012 GABBY INSPECTOR AND MENDER, ROSEANN S 786.2 COUGH 04/01/2012 GABBY INSPECTOR AND MENDER, ROSEANN S 593.9 RENAL INSUFFICIENCY 04/01/2012 GABBY INSPECTOR AND MENDER, ROSEANN S 786.2 COUGH 04/01/2012 FAVIOLA DE LA ROSA APRN D 593. 9 RENAL INSUFFICIENCY 04/01/2012 FAVIOLA DE LA ROSA APRN D 786. 2 COUGH 10/07/2012 GABBY INSPECTOR AND MENDER, ROSEANN S 535.50 GASTRITIS UNSPEC 10/07/2012 535.50 GAS TRITIS UNSPEC 10/07/2012 535.50 GAS TRITIS UNSPEC 10/07/2012 RENEE PIERRE APRNNDA S 535.50 GASTRITIS UNSPEC 10/07/2012 GABBY LEYVA, ROSEANN S 535.50 GASTRITIS UNSPEC 10/07/2012 GABBY LEYVA, ROSEANN S 535.50 GASTRITIS UNSPEC 10/07/2012 RENEE PIERRE APRNNDA S 535.50 GASTRITIS UNSPEC 10/07/2012 RENEE PIERRE APRNNDA S 535.50 GASTRITIS UNSPEC 10/07/2012 RENEE PIERRE APRNNDA S 535.50 GASTRITIS UNSPEC 10/07/2012 FAVIOLA DE LA ROSA APRN 535. 50 GASTRITIS UNSPEC 05/07/2013 RENEE PIERRE APRNNDA S V04.81 FLU SHOT 05/07/2013 RENEE PIERRE APRNNDA S V04.81 FLU SHOT 05/07/2013 RENEE PIERRE APRNNDA S V04.81 FLU SHOT 05/07/2013 RENEE PIERRE APRNNDA S V04.81 FLU SHOT 05/07/2013 RENEE PIERRE APRNNDA S V04.81 FLU SHOT 05/07/2013 RENEE PIERRE APRNNDA S V04.81 FLU SHOT 05/07/2013 FAVIOLA DE LA ROSA APRN V04. 81 FLU SHOT 05/26/2013 RENEE PIERRE APRNNDA S 701.9 SKIN TAG 05/26/2013 RENEE PIERRE APRNNDA S 701.9 SKIN TAG 05/26/2013 GABBY LEYVA ROSEANN S 701.9 SKIN TAG 05/26/2013 GABBY LEYVA ROSEANN S 701.9 SKIN TAG 05/26/2013 GABBY LEYVA ROSEANN S 701.9 SKIN TAG 05/26/2013 FAVIOLA DE LA ROSA APRN 701. 9 SKIN TAG 12/09/2013 RENEE PIERRE APRNNDA S 272.1 HYPERTRIGLYCERIDEMIA 12/09/2013 GABBY LEYVA ROSEANN S 272.1 HYPERTRIGLYCERIDEMIA 12/09/2013 RENEE PIERRE APRNNDA S 272.1 HYPERTRIGLYCERIDEMIA 12/09/2013 ROSEANN PIERRE APRN 272.1 HYPERTRIGLYCERIDEMIA 12/09/2013 FAVIOLA DE LA ROSA APRN 272. 1 HYPERTRIGLYCERIDEMIA 02/27/2014 CAROL GARCIA MD Ot 272 .0 PURE HYPERCHOLESTEROLEM 02/27/2014 CAROL GARCIA MD Ot 311 DEPRESSIVE DISORDER NEC 02/27/2014 CAROL GARCIA MD Ot 366 .9 CATARACT NOS 02/27/2014 CAROL GARCIA MD Ot 401 .9 HYPERTENSION NOS 02/27/2014 CAROL GARCIA MD Ot [...] SHOULDER 07/08/2014 FAVIOLA DE LA ROSA APRN 719. 41 PAIN- SHOULDER 06/01/2016 GEO BORREGO DO Ot J44. 9 CHRONIC OBSTRUCTIVE PULMONARY DISEASE, U 06/01/2016 GEO BORREGO DO Ot K29. 70 GASTRITIS, UNSPECIFIED, WITHOUT BLEEDING 06/01/2016 GEO BORREGO DO Ot Z01.818 ENCOUNTER FOR OTHER PREPROCEDURAL EXAMIN 06/01/2016 GEO BORREGO DO Ot J44. 9 CHRONIC OBSTRUCTIVE PULMONARY DISEASE, U 06/01/2016 GEO BORREGO DO Ot K29. 70 GASTRITIS, UNSPECIFIED, WITHOUT BLEEDING 06/01/2016 GEO BORREGO DO Ot Z01.818 ENCOUNTER FOR OTHER PREPROCEDURAL EXAMIN 06/07/2016 GEO BORREGO DO Ot K29. 70 GASTRITIS, UNSPECIFIED, WITHOUT BLEEDING 06/07/2016 GEO BORREGO DO Ot K31. 7 POLYP OF STOMACH AND DUODENUM 06/07/2016 BORREGO DO, GEO D Ot K44. 9 DIAPHRAGMATIC HERNIA WITHOUT OBSTRUCTION 06/20/2016 BORREGO DO, GEO D Ot K29. 70 GASTRITIS, UNSPECIFIED, WITHOUT BLEEDING 06/20/2016 BORREGO DO, GEO D Ot K31. 7 POLYP OF STOMACH AND DUODENUM 06/20/2016 BORREGO DO, GEO D Ot K44. 9 DIAPHRAGMATIC HERNIA WITHOUT OBSTRUCTION 06/22/2016 BORREGO DO, GEO D Ot K29. 70 GASTRITIS, UNSPECIFIED, WITHOUT BLEEDING 06/22/2016 BORREGO DO, GEO D Ot K31. 7 POLYP OF STOMACH AND DUODENUM 06/22/2016 BORREGO DO, GEO D Ot K44. 9 DIAPHRAGMATIC HERNIA WITHOUT OBSTRUCTION 06/27/2016 BORREGO DO, GEO D Ot K29. 70 GASTRITIS, UNSPECIFIED, WITHOUT BLEEDING 06/27/2016 BORREGO DO, GEO D Ot K31. 7 POLYP OF STOMACH AND DUODENUM 06/27/2016 BORREGO DO, GEO D Ot K44. 9 DIAPHRAGMATIC HERNIA WITHOUT OBSTRUCTION 07/07/2016 BORREGO DO, GEO D Ot K29. 70 GASTRITIS, UNSPECIFIED, WITHOUT BLEEDING 07/07/2016 BORREGO DO, GEO D Ot K31. 7 POLYP OF STOMACH AND DUODENUM 07/07/2016 BORREGO DO, GEO D Ot K44. 9 DIAPHRAGMATIC HERNIA WITHOUT OBSTRUCTION 07/07/2016 BORREGO DO, GEO D Ot K29. 70 GASTRITIS, UNSPECIFIED, WITHOUT BLEEDING 07/07/2016 BORREGO DO, GEO D Ot K31. 7 POLYP OF STOMACH AND DUODENUM 07/07/2016 BORREGO DO, GEO D Ot K44. 9 DIAPHRAGMATIC HERNIA WITHOUT OBSTRUCTION 11/06/2017 BORREGO DO, GEO D Ot K29. 70 GASTRITIS, UNSPECIFIED, WITHOUT BLEEDING 11/06/2017 BORREGO DO, GEO D Ot K31. 7 POLYP OF STOMACH AND DUODENUM 11/06/2017 BORREGO DO, GEO D Ot K44. 9 DIAPHRAGMATIC HERNIA WITHOUT OBSTRUCTION 11/06/2017 ANTONETTE ALMARAZ MD Ot E78.00 PURE HYPERCHOLESTEROLEMIA, UNSPECIFIED 11/06/2017 ANTONETTE ALMARAZ MD Ot F32.9 MAJOR DEPRESSIVE DISORDER, SINGLE EPISOD 11/06/2017 ANTONETTE ALMARAZ MD Ot I10 ESSENTIAL (PRIMARY) HYPERTENSION 11/06/2017 ANTONETTE ALAMRAZ MD Ot J44.9 CHRONIC OBSTRUCTIVE PULMONARY DISEASE, U 11/06/2017 ANTONETTE ALMARAZ MD, Ot K21.9 GASTRO-ESOPHAGEAL REFLUX DISEASE WITHOUT 11/06/2017 ANTONETTE ALMARAZ MD Ot R07.81 PLEURODYNIA 11/06/2017 ANTONETTE ALMARAZ MD, Ot Z79.52 LOFTER (CURRENT) USE OF SYSTEMIC STER 11/06/2017 ANTONETTE ALMARAZ MD Ot Z79.82 MCC (CURRENT) USE OF ASPIRIN 11/06/2017 ANTONETTE ALMARAZ MD Ot Z87.19 PERSONAL HISTORY OF OTHER DISEASES OF 11/06/2017 ANTONETTE ALMARAZ MD Ot Z88.0 ALLERGY STATUS TO PENICILLIN 11/06/2017 ANTONETTE ALMARAZ MD Ot Z88.2 ALLERGY STATUS TO SULFONAMIDES STATUS 11/06/2017 ANTONETTE ALMARAZ MD Ot Z90.710 ACQUIRED ABSENCE OF BOTH CERVIX AND UTER 11/06/2017 ANTONETTE ALMARAZ MD Ot Z98.51 TUBAL LIGATION STATUS 11/08/2017 ANTONETTE ALMARAZ MD Ot E78.00 PURE HYPERCHOLESTEROLEMIA, UNSPECIFIED 11/08/2017 ANTONETTE ALMARAZ MD Ot F32.9 MAJOR DEPRESSIVE DISORDER, SINGLE EPISOD 11/08/2017 ANTONETTE ALMARAZ MD Ot I10 ESSENTIAL (PRIMARY) HYPERTENSION 11/08/2017 ANTONETTE ALMARAZ MD, Ot J44.9 CHRONIC OBSTRUCTIVE PULMONARY DISEASE, U 11/08/2017 ANTONETTE ALMARAZ MD Ot K21.9 GASTRO-ESOPHAGEAL REFLUX DISEASE WITHOUT 11/08/2017 ANTONETTE ALMARAZ MD Ot R07.81 PLEURODYNIA 11/08/2017 ANTONETTE ALMARAZ MD Ot Z79.52 LOFTER (CURRENT) USE OF SYSTEMIC STER 11/08/2017 ANTONETTE ALMARAZ MD Ot Z79.82 LOFTER (CURRENT) USE OF ASPIRIN 11/08/2017 ANTONETTE ALMARAZ MD Ot Z87.19 PERSONAL HISTORY OF OTHER DISEASES OF 11/08/2017 ANTONETTE ALMARAZ MD Ot Z88.0 ALLERGY STATUS TO PENICILLIN 11/08/2017 ANTONETTE ALMARAZ MD Ot Z88.2 ALLERGY STATUS TO SULFONAMIDES STATUS 11/08/2017 ANTONETTE ALMARAZ MD Ot Z90.710 ACQUIRED ABSENCE OF BOTH CERVIX AND UTER 11/08/2017 SUNG RING, ANTONETTE Montemayor Ot Z98.51 TUBAL LIGATION STATUS 11/17/2017 DEB RING, DIANE Perez Ot E78. 00 PURE HYPERCHOLESTEROLEMIA, UNSPECIFIED 11/17/2017 DEB RING, DIANE Perez Ot F32. 9 MAJOR DEPRESSIVE DISORDER, SINGLE EPISOD 11/17/2017 DEB RING, DIANE Perez Ot I10 ESSENTIAL (PRIMARY) HYPERTENSION 11/17/2017 DIANE BOYD MD Ot J44. 9 CHRONIC OBSTRUCTIVE PULMONARY DISEASE, U 11/17/2017 DIANE BOYD MD Ot K21. 9 GASTRO-ESOPHAGEAL REFLUX DISEASE WITHOUT 11/17/2017 DIANE BOYD MD Ot R51 HEADACHE 11/17/2017 DIANE BOYD MD Ot Z79. 52 MCC (CURRENT) USE OF SYSTEMIC STER 11/17/2017 DIANE BOYD MD Ot Z79. 82 LOFTER (CURRENT) USE OF ASPIRIN 11/17/2017 DIANE BOYD MD Ot Z87. 19 PERSONAL HISTORY OF OTHER DISEASES OF TH 11/17/2017 DEB RING, DIANE Perez Ot Z88. 0 ALLERGY STATUS TO PENICILLIN 11/17/2017 DEB RING, DIANE Perez Ot Z88. 2 ALLERGY STATUS TO SULFONAMIDES STATUS 11/17/2017 DEB RING, DIANE Perez Ot Z90.710 ACQUIRED ABSENCE OF BOTH CERVIX AND UTER 11/17/2017 DEB RING, DIANE Perez Ot Z98. 51 TUBAL LIGATION STATUS 11/19/2017 DIANE BOYD MD Ot E78. 00 PURE HYPERCHOLESTEROLEMIA, UNSPECIFIED 11/19/2017 DIANE BOYD MD Ot F32. 9 MAJOR DEPRESSIVE DISORDER, SINGLE EPISOD 11/19/2017 DIANE BOYD MD Ot I10 ESSENTIAL (PRIMARY) HYPERTENSION 11/19/2017 DIANE BOYD MD Ot J44. 9 CHRONIC OBSTRUCTIVE PULMONARY DISEASE, U 11/19/2017 DIANE BOYD MD Ot K21. 9 GASTRO-ESOPHAGEAL REFLUX DISEASE WITHOUT 11/19/2017 DIANE BOYD MD Ot R51 HEADACHE 11/19/2017 DIANE BOYD MD Ot Z79. 52 MCC (CURRENT) USE OF SYSTEMIC STER 11/19/2017 DIANE BOYD MD Ot Z79. 82 LOFTER (CURRENT) USE OF ASPIRIN 11/19/2017 DEB RING, DIANE Perez Ot Z87. 19 PERSONAL HISTORY OF OTHER DISEASES OF TH 11/19/2017 DEB RING, DIANE Perez Ot Z88. 0 ALLERGY STATUS TO PENICILLIN 11/19/2017 DEB RING, DIANE Perez Ot Z88. 2 ALLERGY STATUS TO SULFONAMIDES STATUS 11/19/2017 DEB RING, DIANE Perez Ot Z90.710 ACQUIRED ABSENCE OF BOTH CERVIX AND UTER 11/19/2017 DEB RING, DIANE Perez Ot Z98. 51 TUBAL LIGATION STATUS 07/09/2018 ROSEANN PIERREP Ot Z82.3 FAMILY HISTORY OF STROKE 07/10/2018 ROSEANN PIERREP Ot Z82.3 FAMILY HISTORY OF STROKE 07/11/2018 RENEE BORREGO DOTT D Ot K29. 70 GASTRITIS, UNSPECIFIED, WITHOUT BLEEDING 07/11/2018 RENEE BORREGO DOTT D Ot K31. 7 POLYP OF STOMACH AND DUODENUM 07/11/2018 GEO BORREGO DO Ot K44. 9 DIAPHRAGMATIC HERNIA WITHOUT OBSTRUCTION 07/11/2018 ROSEANN PIERREP Ot Z82.3 FAMILY HISTORY OF STROKE 07/11/2018 ROSEANN PIERREP Ot Z82.3 FAMILY HISTORY OF STROKE 07/12/2018 ROSEANN PIERREP Ot Z82.3 FAMILY HISTORY OF STROKE 07/15/2018 RENEE BORREGO DOTT D Ot K29. 70 GASTRITIS, UNSPECIFIED, WITHOUT BLEEDING 07/15/2018 RENEE BORREGO DOTT D Ot K31. 7 POLYP OF STOMACH AND DUODENUM 07/15/2018 GEO BORREGO DO Ot K44. 9 DIAPHRAGMATIC HERNIA WITHOUT OBSTRUCTION 07/15/2018 ROSEANN PIERREP Ot Z82.3 FAMILY HISTORY OF STROKE 07/18/2018 ROSEANN PIERREP Ot G52.9 CRANIAL NERVE DISORDER, UNSPECIFIED 07/18/2018 ROSEANN PIERREP Ot I65.23 OCCLUSION AND STENOSIS OF BILATERAL BRUCE 07/18/2018 ROSEANN PIERREP Ot Z82.3 FAMILY HISTORY OF STROKE 08/08/2018 ROSEANN PIERREP Ot G52.9 CRANIAL NERVE DISORDER, UNSPECIFIED 08/08/2018 ROSEANN PIERREP Ot I65.23 OCCLUSION AND STENOSIS OF BILATERAL BRUCE 08/08/2018 ROSEANN PIERRE Ot Z82.3 FAMILY HISTORY OF STROKE 08/22/2018 ROSEANN PIERRE Ot G52.9 CRANIAL NERVE DISORDER, UNSPECIFIED 08/22/2018 GABBY, ROSEANN PITTAMN Ot I65.23 OCCLUSION AND STENOSIS OF BILATERAL BRUCE 08/22/2018 ROSEANN PIERRE Ot Z82.3 FAMILY HISTORY OF STROKE 11/10/2018 OMAR RING, KETTY Virgen Ot E78.00 PURE HYPERCHOLESTEROLEMIA, UNSPECIFIED 11/10/2018 KETTY NELSON MD Ot F32.9 MAJOR DEPRESSIVE DISORDER, SINGLE EPISOD 11/10/2018 KETTY NELSON MD, Ot G31.84 MILD COGNITIVE IMPAIRMENT, SO STATED 11/10/2018 KETTY NELSON MD, Ot I12.9 HYPERTENSIVE CHRONIC KIDNEY DISEASE W ST 11/10/2018 KETTY NELSON MD, Ot J44.9 CHRONIC OBSTRUCTIVE PULMONARY DISEASE, U 11/10/2018 KETTY NELSON MD, Ot K21.9 GASTRO-ESOPHAGEAL REFLUX DISEASE WITHOUT 11/10/2018 KETTY NELSON MD, Ot M19.032 PRIMARY OSTEOARTHRITIS, LEFT WRIST 11/10/2018 KETTY NELSON MD, Ot M25.432 EFFUSION, LEFT WRIST 11/10/2018 KETTY NELSON MD Ot M85.89 OTH DISRD OF BONE DENSITY AND STRUCTURE, 11/10/2018 KETTY NELSON MD, Ot N18.9 CHRONIC KIDNEY DISEASE, UNSPECIFIED 11/10/2018 KETTY NELSON MD, Ot R40.2142 COMA SCALE, EYES OPEN, SPONTANEOUS, EMR 11/10/2018 KETTY NELSON MD, Ot R40.2252 COMA SCALE, BEST VERBAL RESPONSE, ORIENT 11/10/2018 KETTY NELSON MD, Ot R40.2362 COMA SCALE, BEST MOTOR RESPONSE, OBEYS C 11/10/2018 KETTY NELSON MD, Ot S69.92XA UNSP INJURY OF LEFT WRIST, HAND AND FING 11/10/2018 KETTY NELSON MD, Ot W18.30XA FALL ON SAME LEVEL, UNSPECIFIED, INITIAL 11/10/2018 KETTY NELSON MD, Ot Y92.007 [place] OF [facility] 11/10/2018 KETTY NELSON MD, Ot Z79.52 LOFTER (CURRENT) USE OF SYSTEMIC STER 11/10/2018 KETTY NELSON MD, Ot Z79.82 MCC (CURRENT) USE OF ASPIRIN 11/10/2018 KETTY NELSON MD, Ot Z87.19 PERSONAL HISTORY OF OTHER DISEASES OF TH 11/10/2018 KETTY NELSON MD, Ot Z87.891 PERSONAL HISTORY OF NICOTINE DEPENDENCE 11/10/2018 KETTY NELSON MD, Ot Z88.0 ALLERGY STATUS TO PENICILLIN 11/10/2018 KETTY NELSON MD, Ot Z88.2 ALLERGY STATUS TO SULFONAMIDES STATUS 11/10/2018 KETTY NELSON MD, Ot Z90.710 ACQUIRED ABSENCE OF BOTH CERVIX AND UTER 11/10/2018 KETTY NELSON MD, Ot Z98.51 TUBAL LIGATION STATUS 11/10/2018 KETTY NELSON MD, Ot Z98.890 OTHER SPECIFIED POSTPROCEDURAL STATES 11/16/2018 KETTY NELSON MD, Ot E78.00 PURE HYPERCHOLESTEROLEMIA, UNSPECIFIED 11/16/2018 KETTY NELSON MD, Ot F32.9 MAJOR DEPRESSIVE DISORDER, SINGLE EPISOD 11/16/2018 KETTY NELSON MD, Ot G31.84 MILD COGNITIVE IMPAIRMENT, SO STATED 11/16/2018 KETTY NELSON MD, Ot I12.9 HYPERTENSIVE CHRONIC KIDNEY DISEASE W ST 11/16/2018 KETTY NELSON MD, Ot J44.9 CHRONIC OBSTRUCTIVE PULMONARY DISEASE, U 11/16/2018 KETTY NELSON MD, Ot K21.9 GASTRO-ESOPHAGEAL REFLUX DISEASE WITHOUT 11/16/2018 KETTY NELSON MD, Ot M19.032 PRIMARY OSTEOARTHRITIS, LEFT WRIST 11/16/2018 KETTY NELSON MD, Ot M25.432 EFFUSION, LEFT WRIST 11/16/2018 KETTY NELSON MD, Ot M85.89 OTH DISRD OF BONE DENSITY AND STRUCTURE, 11/16/2018 KETTY NELSON MD, Ot N18.9 CHRONIC KIDNEY DISEASE, UNSPECIFIED 11/16/2018 KETTY NELSON MD, Ot R40.2142 COMA SCALE, EYES OPEN, SPONTANEOUS, EMR 11/16/2018 KETTY NELSON MD, Ot R40.2252 COMA SCALE, BEST VERBAL RESPONSE, ORIENT 11/16/2018 KETTY NELSON MD, Ot R40.2362 COMA SCALE, BEST MOTOR RESPONSE, OBEYS C 11/16/2018 KETTY NELSON MD, Ot S69.92XA UNSP INJURY OF LEFT WRIST, HAND AND FING 11/16/2018 KETTY NELSON MD, Ot W18.30XA FALL ON SAME LEVEL, UNSPECIFIED, INITIAL 11/16/2018 KETTY NELSON MD, Ot Y92.007 G[place] OR YARD OF UNSP NON-INSTITUT RESI 11/16/2018 KETTY NELSON MD, Ot Z79.52 LOFTER (CURRENT) USE OF SYSTEMIC STER 11/16/2018 KETTY NELSON MD, Ot Z79.82 MCC (CURRENT) USE OF ASPIRIN 11/16/2018 KETTY NELSON MD, Ot Z87.19 PERSONAL HISTORY OF OTHER DISEASES OF TH 11/16/2018 KETTY NELSON MD, Ot Z87.891 PERSONAL HISTORY OF NICOTINE DEPENDENCE 11/16/2018 KETTY NELSON MD, Ot Z88.0 ALLERGY STATUS TO PENICILLIN 11/16/2018 KETTY NELSON MD, Ot Z88.2 ALLERGY STATUS TO SULFONAMIDES STATUS 11/16/2018 KETTY NELSON MD, Ot Z90.710 ACQUIRED ABSENCE OF BOTH CERVIX AND UTER 11/16/2018 KETTY NELSON MD, Ot Z98.51 TUBAL LIGATION STATUS 11/16/2018 KETTY NELSON MD, Ot Z98.890 OTHER SPECIFIED POSTPROCEDURAL STATES 04/03/2019 MIGUEL RING, MEENA Hemphill Ot M54.6 PAIN IN THORACIC SPINE 06/18/2019 MEENA RIVERA MD Ot Z78.0 ASYMPTOMATIC MENOPAUSAL STATE 06/23/2019 MEENA RIVERA MD Ot Z78.0 ASYMPTOMATIC MENOPAUSAL STATE 06/27/2019 MEENA RIVERA MD Ot M54.5 LOW BACK PAIN 06/27/2019 MEENA RIVERA MD Ot M54.6 PAIN IN THORACIC SPINE 06/27/2019 MEENA RIVERA MD Ot M81.0 AGE-RELATED OSTEOPOROSIS W/O CURRENT PAT 06/27/2019 MEENA RIVERA MD Ot Z78.0 ASYMPTOMATIC MENOPAUSAL STATE 07/01/2019 MEENA RIVERA MD Ot M47.814 SPONDYLOSIS W/O MYELOPATHY OR RADICULOPA 07/01/2019 MEENA RIVERA MD Ot M47.816 SPONDYLOSIS W/O MYELOPATHY OR RADICULOPA 07/01/2019 MEENA RIVERA MD Ot M51.36 OTHER INTERVERTEBRAL DISC DEGENERATION, 08/01/2019 MEENA RIVERA MD Ot M54.5 LOW BACK PAIN 08/01/2019 MEENA RIVERA MD Ot M54.6 PAIN IN THORACIC SPINE 08/01/2019 MEENA RIVERA MD Ot M81.0 AGE-RELATED OSTEOPOROSIS W/O CURRENT PAT 08/01/2019 MEENA RIVERA MD Ot Z78.0 ASYMPTOMATIC MENOPAUSAL STATE 10/03/2019 W I10 Essent ial (primary) hypertension [facility] 10/06/2019 W I10 Essent ial (primary) hypertension [facility] 10/06/2019 W K21.9 Radha ro-esophageal reflux disease without esophagitis [place] 10/06/2019 W M54.5 Low back pain [place] 11/06/2019 W J30.2 Seas onal allergies [place] 11/06/2019 W R07.81 Ple uritic pain [place] 11/08/2019 W J30.2 Seas onal allergies [place] 11/08/2019 W R07.81 Ple uritic pain [place] 01/20/2020 GEO BORREGO DO Ot K29. 70 GASTRITIS, UNSPECIFIED, WITHOUT BLEEDING 01/20/2020 GEO BORREGO DO Ot K31. 7 POLYP OF STOMACH AND DUODENUM 01/20/2020 RENEE BORREGO DOTT Albina Ot K44. 9 DIAPHRAGMATIC HERNIA WITHOUT OBSTRUCTION 01/20/2020 ROSEANN PIERRE Ot G52.9 CRANIAL NERVE DISORDER, UNSPECIFIED 01/20/2020 ROSEANN PIERRE Ot I65.23 OCCLUSION AND STENOSIS OF BILATERAL BRUCE 01/20/2020 ROSEANN PIERRE Ot Z82.3 FAMILY HISTORY OF STROKE 01/20/2020 MIGUEL RING, MEENA Hemphill Ot M54.5 LOW BACK PAIN 01/20/2020 MEENA RIVERA MD Ot M54.6 PAIN IN THORACIC SPINE 01/20/2020 MEENA RIVERA MD Ot M81.0 AGE-RELATED OSTEOPOROSIS W/O CURRENT PAT 01/20/2020 MEENA RIVERA MD Ot Z78.0 ASYMPTOMATIC MENOPAUSAL STATE 01/20/2020 MEENA RIVERA MD Ot M47.814 SPONDYLOSIS W/O MYELOPATHY OR RADICULOPA 01/20/2020 MEENA RIVERA MD Ot M47.816 SPONDYLOSIS W/O MYELOPATHY OR RADICULOPA 01/20/2020 MEENA RIVERA MD Ot M51.36 OTHER INTERVERTEBRAL DISC DEGENERATION, 01/22/2020 TOMY ASHFORD APRN Ot M25.551 PAIN IN RIGHT HIP 01/22/2020 TOMY ASHFORD APRN Ot M47.896 OTHER SPONDYLOSIS, LUMBAR REGION 01/22/2020 TOMY ASHFORD APRN Ot Z79.899 OTHER LOFTER (CURRENT) DRUG THERAPY 01/26/2020 W K59.01 Slo w transit constipation Tomy Ashford 01/26/2020 W M25.551 Ri ght hip pain Tomy Ashford 01/29/2020 W K59.01 Slo w transit constipation Tomy Ashford 01/29/2020 W M25.551 Ri ght hip pain Tomy Ashford 01/30/2020 TOMY ASHFORD APRN Ot M25.551 PAIN IN RIGHT HIP 01/30/2020 TOMY ASHFORD APRN Ot M47.896 OTHER SPONDYLOSIS, LUMBAR REGION 01/30/2020 TOMY ASHFORD APRN Ot Z79.899 OTHER LOFTER (CURRENT) DRUG THERAPY Procedures Code Description [place] [address] MICR O ALBUMIN-IN HOUSE 07/16/2012 55681 H PY CRISTINO (IN-HOUSE) 10/07/2012 G0008 FLU ADMINISTRATION (MEDICARE ONLY) 05/07/2013 96566 ROUT INE VENIPUNCTURE 12/08/2013 20071 CBC 12/08/2013 [id number] GF R CALC (RESULT ONLY) 12/08/2013 51084 CMP 12/08/2013 73803 LIPI D PANEL 12/08/2013 93937 TSH 12/08/2013 94184 ROUT INE VENIPUNCTURE 01/14/2014 [id number] GF R CALC (RESULT ONLY) 01/14/2014 19787 CMP 01/14/2014 95265 LIPI D PANEL 01/14/2014 93037 XRAY SHOULDER RIGHT COMP 2 VIEWS 07/08/2014 57986 ROUT INE VENIPUNCTURE 07/10/2014 30087 LIPI D PANEL 07/10/2014 Results Test Result Range Comp. Metabolic Panel (14) - 04/04/17 10 :13 Glucose, Serum 105 mg/dL 65-99 BUN 14 [...] 12:20 WHITE BLOOD CELL COUNT 7.3 Thousand/uL 3 .8-10.8 RED BLOOD CELL COUNT 4.98 Million/uL 3.8 0-5.10 HEMOGLOBIN 15.2 g/dL 11.7-15.5 HEMATOCRIT 46.0 % 35.0-45.0 MCV 92.4 fL 80.0-100.0 MCH 30.5 pg 27.0-33.0 MCHC 33.0 g/dL 32.0-36.0 RDW 12.8 % 11.0-15.0 PLATELET COUNT 200 Thousand/uL 140-400 MPV 11.3 fL 7.5-12.5 ABSOLUTE NEUTROPHILS 4234 cells/uL 1500- 7800 ABSOLUTE LYMPHOCYTES 2387 cells/uL 850-3 900 ABSOLUTE MONOCYTES 416 cells/uL 200-950 ABSOLUTE EOSINOPHILS 219 cells/uL 15-500 ABSOLUTE BASOPHILS 44 cells/uL 0-200 NEUTROPHILS 58 % NRG LYMPHOCYTES 32.7 % NRG MONOCYTES 5.7 % NRG EOSINOPHILS 3.0 % NRG BASOPHILS 0.6 % NRG Complete blood count (CBC) with automate d white blood cell (WBC) differential - 11/06/17 11:06 Blood leukocytes automated count (number/volume) 6.7 10*3/uL 4.3-11.0 Blood erythrocytes automated count (number/volume) 4.66 10*6/uL 4.35-5.85 Venous blood hemoglobin measurement (mass/volume) 14.2 g/dL 11.5-16.0 Blood hematocrit (volume fraction) 42 % 35-52 Automated erythrocyte mean corpuscular volume 90 [ foz_us] 80-99 Automated erythrocyte mean corpuscular h emoglobin (mass per erythrocyte) 31 pg 25-34 Automated erythrocyte mean corpuscular h emoglobin concentration measurement (mass/volume) 34 g/dL 32-36 Automated erythrocyte distribution width ratio 13. 0 % 10.0- 14.5 Automated blood platelet count (count/volume) 197 10*3/uL [...] 10*3 1.0-4.0 Blood monocytes automated count (number/volume) 0. 5 10*3 0.0-1.0 Automated eosinophil count 0.2 10*3/uL 0 .0-0.3 Automated blood basophil count (count/volume) 0.0 10*3/uL 0.0-0.1 PT panel in platelet poor plasma by coag ulation assay - 11/06/17 11:06 Prothrombin time (PT) in platelet poor plasma by coagu lation assay 12.2 s 12.2-14.7 INR in platelet poor plasma or blood by coagulation as say 0.9 0.8-1.4 Activated partial thromboplastin time (a PTT) in platelet poor plasma bycoagulation assay - 11/06/17 11:06 Activated partial thromboplastin time (a PTT) in platelet poor plasma bycoagulation assay 30 s 24-35 Fibrin D-dimer FEU measurement in platel et poor plasma (mass/volume) - 11/06/17 11:06 Fibrin D-dimer FEU measurement in platelet [...] 5-14 Serum or plasma urea nitrogen measurement (mass/volume ) 16 mg/dL 7-18 Serum or plasma creatinine measurement (mass/volume) 1.05 mg/dL 0.60-1.30 Serum or plasma urea nitrogen/creatinine mass ratio 15 NRG Serum or plasma creatinine measurement w ith calculation of estimated glomerular filtration rate 52 NRG Serum or plasma glucose measurement (mass/volume) 98 mg/dL 70-105 Serum or plasma calcium measurement (mass/volume) 9.7 mg/dL 8.5-10.1 Serum or plasma total bilirubin measurement (mass/volu me) 1.0 mg/dL 0.1-1.0 Serum or plasma alkaline phosphatase pj surement (enzymatic activity/volume) 90 U/L 40-136 Serum or plasma aspartate aminotransfera se measurement (enzymatic activity/volume) 24 U/L 5-34 Serum or plasma alanine aminotransferase measurement (enzymatic activity/volume) 18 U/L 0-55 Serum or plasma protein measurement (mass/volume) 8.0 g/dL 6.4-8.2 Serum or plasma albumin measurement (mass/volume) 4.5 g/dL 3.2-4.5 Magnesium - 11/06/17 11:06 Magnesium 2.3 mg/dL 1.8-2.4 Serum or plasma troponin i.cardiac measu rement (mass/volume) - 11/06/17 11:06 Serum or plasma troponin i.cardiac measurement (mass/v olume) < ng/mL <0.30 Myoglobin, serum - 11/06/17 11:06 Myoglobin, serum 38.8 ng/mL 10.0-92.0 Complete blood count (CBC) with automate d white blood cell (WBC) differential - 11/17/17 14:07 Blood leukocytes automated count (number/volume) 5.8 10*3/uL 4.3-11.0 Blood erythrocytes automated count (number/volume) 4.62 10*6/uL 4.35-5.85 Venous blood hemoglobin measurement (mass/volume) 13.9 g/dL 11.5-16.0 Blood hematocrit (volume fraction) 42 % 35-52 Automated erythrocyte mean corpuscular volume 92 [ foz_us] 80-99 Automated erythrocyte mean corpuscular h emoglobin (mass per erythrocyte) 30 pg 25-34 Automated erythrocyte mean corpuscular h emoglobin concentration measurement (mass/volume) 33 g/dL 32-36 Automated erythrocyte distribution width ratio 13. 5 % 10.0- 14.5 Automated blood platelet count (count/volume) 199 10*3/uL 130-400 Automated blood platelet mean volume measurement 10.3 [foz_us] 7.4-10.4 Automated blood neutrophils/100 leukocytes 45 % 42-75 Automated blood lymphocytes/100 leukocytes 44 % 12-44 Blood monocytes/100 leukocytes 9 % 0-12 Automated blood eosinophils/100 leukocytes 2 % 0-10 Automated blood basophils/100 leukocytes 0 % 0-10 Blood neutrophils automated count (number/volume) 2.6 10*3 1.8-7.8 Blood lymphocytes automated count (number/volume) 2.5 10*3 1.0-4.0 Blood monocytes automated count (number/volume) 0. 5 10*3 0.0-1.0 Automated eosinophil count 0.1 10*3/uL 0 .0-0.3 Automated blood basophil count (count/volume) 0.0 10*3/uL 0.0-0.1 Comprehensive metabolic panel - 11/17/17 14:07 Serum or plasma sodium measurement (moles/volume) 141 mmol/L 135-145 Serum or plasma potassium measurement (moles/volume) 3.6 mmol/L 3.6-5.0 Serum or plasma chloride measurement (moles/volume) 104 mmol/L 98-107 Carbon dioxide 26 mmol/L 21-32 Serum or plasma anion gap determination (moles/volume) 11 mmol/L 5-14 Serum or plasma urea nitrogen measurement (mass/volume ) 15 mg/dL 7-18 Serum or plasma creatinine measurement (mass/volume) 1.18 mg/dL 0.60-1.30 Serum or plasma urea nitrogen/creatinine mass ratio 13 NRG Serum or plasma creatinine measurement w ith calculation of estimated glomerular filtration rate 45 NRG Serum or plasma glucose measurement (mass/volume) 113 mg/dL 70-105 Serum or plasma calcium measurement (mass/volume) 9.5 mg/dL 8.5-10.1 Serum or plasma total bilirubin measurement (mass/volu me) 0.7 mg/dL 0.1-1.0 Serum or plasma alkaline phosphatase pj surement (enzymatic activity/volume) 79 U/L 40-136 Serum or plasma aspartate aminotransfera se measurement (enzymatic activity/volume) 25 U/L 5-34 Serum or plasma alanine aminotransferase measurement (enzymatic activity/volume) 26 U/L 0-55 Serum or plasma protein measurement (mass/volume) 8.1 g/dL 6.4-8.2 Serum or plasma albumin measurement (mass/volume) 4.6 g/dL 3.2-4.5 Erythrocyte sedimentation rate by sharif gren method - 11/17/17 14:07 Erythrocyte sedimentation rate by westergren method 4 mm 0- 30 [facility] [address] - 02/18/18 10:52 GLUCOSE TNP mg/dL NRG [facility] [address] - 02/18/18 11:02 GLUCOSE 105 mg/dL 65-99 UREA NITROGEN (BUN) 24 mg/dL 7-25 CREATININE 1.24 mg/dL 0.60-0.93 eGFR NON-AFR. KAZAKH 43 mL/min/1.73m2 > OR = 60 eGFR 50 mL/min/1.73m2 > OR = 60 BUN/CREATININE RATIO 19 (calc) 6-22 SODIUM 140 mmol/L 135-146 POTASSIUM 3.9 mmol/L 3.5-5.3 CHLORIDE 103 mmol/L 98-110 CARBON DIOXIDE 26 mmol/L 20-31 CALCIUM 9.9 mg/dL 8.6-10.4 PROTEIN, TOTAL 8.2 g/dL 6.1-8.1 ALBUMIN 5.0 g/dL 3.6-5.1 GLOBULIN 3.2 g/dL (calc) 1.9-3.7 ALBUMIN/GLOBULIN RATIO 1.6 (calc) 1.0-2. 5 BILIRUBIN, TOTAL 0.8 mg/dL 0.2-1.2 ALKALINE PHOSPHATASE 84 U/L 33-130 AST 25 U/L 10-35 ALT 18 U/L 6-29 CMP - 05/06/18 17:30 GLUCOSE 130 mg/dL 65-99 UREA NITROGEN (BUN) 16 mg/dL 7-25 CREATININE 1.00 mg/dL 0.60-0.93 eGFR NON-AFR. KAZAKH 56 mL/min/1.73m2 > OR = 60 eGFR 65 mL/min/1.73m2 > OR = 60 BUN/CREATININE RATIO 16 (calc) 6-22 SODIUM 139 mmol/L 135-146 POTASSIUM 4.0 mmol/L 3.5-5.3 CHLORIDE 102 mmol/L 98-110 CARBON DIOXIDE 28 mmol/L 20-32 CALCIUM 9.4 mg/dL 8.6-10.4 PROTEIN, TOTAL 7.5 g/dL 6.1-8.1 ALBUMIN 4.6 g/dL 3.6-5.1 GLOBULIN 2.9 g/dL (calc) 1.9-3.7 ALBUMIN/GLOBULIN RATIO 1.6 (calc) 1.0-2. 5 BILIRUBIN, TOTAL 0.5 mg/dL 0.2-1.2 ALKALINE PHOSPHATASE 87 U/L 33-130 AST 19 U/L 10-35 ALT 13 U/L 6-29 CRP - 07/08/18 11:33 C-REACTIVE PROTEIN 4.4 mg/L <8.0 Complete urinalysis with reflex to cultu re - 02/27/20 00:05 Urine color determination YELLOW NRG Urine clarity determination CLEAR NR G Urine pH measurement by test strip 5.5 5-9 Specific gravity of urine by test strip <= 1.016-1.022 Urine protein assay by test strip, semi-quantitative NEGATIVE NEGATIVE Urine glucose detection by automated test strip NE GATIVE NEGATIVE Erythrocytes detection in urine sediment by light micr oscopy NEGATIVE NEGATIVE Urine ketones detection by automated test strip NE GATIVE NEGATIVE Urine nitrite detection by test strip NEGATIVE NEGATIVE Urine total bilirubin detection by test strip NEGA TIVE NEGATIVE Urine urobilinogen measurement by automated test strip (mass/volume) 0.2 mg/dL < = 1.0 Urine leukocyte esterase detection by dipstick NEG ATIVE NEGATIVE Automated urine sediment erythrocyte cou nt by microscopy (number/high power field) NONE NRG Automated urine sediment leukocyte count by microscopy (number/high power field) NONE NRG Bacteria detection in urine sediment by light microsco py NEGATIVE NRG Squamous epithelial cells detection in u rine sediment by light microscopy 5-10 NRG Crystals detection in urine sediment by light microsco py NONE NRG Casts detection in urine sediment by light microscopy NONE NRG Mucus detection in urine sediment by light microscopy SMALL NRG Complete urinalysis with reflex to culture NO NRG Complete blood count (CBC) with automate d white blood cell (WBC) differential - 02/27/20 22:35 Blood leukocytes automated count (number/volume) 13.7 10*3/uL 4.3-11.0 Blood erythrocytes automated count (number/volume) 3.92 10*6/uL 4.35-5.85 Venous blood hemoglobin measurement (mass/volume) 11.9 g/dL 11.5-16.0 Blood hematocrit (volume fraction) 36 % 35-52 Automated erythrocyte mean corpuscular volume 91 [ foz_us] 80-99 Automated erythrocyte mean corpuscular h emoglobin (mass per erythrocyte) 30 pg 25-34 Automated erythrocyte mean corpuscular h emoglobin concentration measurement (mass/volume) 33 g/dL 32-36 Automated erythrocyte distribution width ratio 12. 9 % 10.0- 14.5 Automated blood platelet count (count/volume) 153 10*3/uL 130-400 Automated blood platelet mean volume measurement 10.9 [foz_us] 7.4-10.4 Automated blood neutrophils/100 leukocytes 85 % 42-75 Automated blood lymphocytes/100 leukocytes 8 % 12-44 Blood monocytes/100 leukocytes 6 % 0-12 Automated blood eosinophils/100 leukocytes 0 % 0-10 Automated blood basophils/100 leukocytes 0 % 0-10 Blood neutrophils automated count (number/volume) 11.7 10*3 1.8-7.8 Blood lymphocytes automated count (number/volume) 1.1 10*3 1.0-4.0 Blood monocytes automated count (number/volume) 0. 9 10*3 0.0-1.0 Automated eosinophil count 0.0 10*3/uL 0 .0-0.3 Automated blood basophil count (count/volume) 0.0 10*3/uL 0.0-0.1 Whole blood basic metabolic panel - 02/04 11/23 22:35 Serum or plasma sodium measurement (moles/volume) 140 mmol/L 135-145 Serum or plasma potassium measurement (moles/volume) 3.6 mmol/L 3.6-5.0 Serum or plasma chloride measurement (moles/volume) 107 mmol/L 98-107 Carbon dioxide 20 mmol/L 21-32 Serum or plasma anion gap determination (moles/volume) 13 mmol/L 5-14 Serum or plasma urea nitrogen measurement (mass/volume ) 15 mg/dL 7-18 Serum or plasma creatinine measurement (mass/volume) 1.03 mg/dL 0.60-1.30 Serum or plasma urea nitrogen/creatinine mass ratio 15 NRG Serum or plasma creatinine measurement w ith calculation of estimated glomerular filtration rate 52 NRG Serum or plasma glucose measurement (mass/volume) 129 mg/dL 70-105 Serum or plasma calcium measurement (mass/volume) 9.0 mg/dL 8.5-10.1 Encounters ACCT No. Visit Date/Time Discharge Status Pt. Type Provider Facility Loc./Unit Complaint [id number] 04/05/2017 11:07:00 Document Registration [id number] 01/20/2020 13:58:00 23:59:59 CLS Outpatient TOMY ASHFORD APRN [facility] RAD R HIP PAIN [id number] 06/24/2019 08:53:00 23:59:59 CLS Outpatient MEENA RIVERA MD [facility] RAD BACK PAIN [id number] 06/09/2019 14:09:00 23:59:59 CLS Outpatient MEENA RIVERA MD [facility] RAD BACK PAIN [id number] 04/03/2019 09:50:00 10:58:00 DIS Outpatient MEENA RIVERA MD [facility] REHAB BACK PAIN [id number] 11/10/2018 10:15:00 04/07/2 019 12:00:00 DIS Emergency OMAR RING, KETTY [facility] ER LEFT WRIST INJ [id number] 07/15/2018 09:45:00 018 23:59:59 CLS Outpatient ROSEANN PIERRE [facility] RAD FAMILY HISTORY OF EMBO LIC STROKE [id number] 07/09/2018 09:38:00 018 23:59:59 CLS Preadmit ROSEANN PIERRE [facility] RAD CRANIAL NERVE PALSY [id number] 11/17/2017 13:32:00 018 17:01:00 DIS Emergency DEB RING, DIANE S [facility] ER PAIN IN BACK OF HEAD [id number] 11/06/2017 10:34:00 018 13:01:00 DIS Emergency ANTONETTE ALMARAZ MD [facility] ER CHEST DISCOMFOR T WHEN BREATHING-LUNG [id number] 06/06/2016 09:21:00 016 23:59:59 CLS Outpatient GEO BORREGO DO [facility] SDC HIATAL HERNIA [id number] 06/01/2016 05:33:00 016 09:46:00 DIS Outpatient GEO BORREGO DO [facility] PREOP HIATAL HERNIA [id number] 02/27/2014 12:23:00 014 14:39:00 DIS Emergency CAROL GARCIA MD [facility] ER CHEST PAIN [id number] 02/27/2020 21:39:[address] Emergency OMAR RING, KETTY [facility] ER R HIP PAIN [id number] 10/14/2018 14:20:00 10/14/2018 23:59:5 9 CLS Outpatient ROSEANN PIERRE APRN [facility] [id number] 07/08/2018 10:40:00 Document Registration [id number] 05/06/2018 16:40:00 Document Registration [id number] 02/18/2018 10:52:00 Document Registration [id number] 02/18/2018 10:00:00 Document Registration [id number] 09/17/2017 11:20:00 Document Registration [id number] 04/04/2017 09:20:00 Document Registration [id number] 08/13/2014 14:40:00 08/13/2014 23:59: 59 CLS Outpatient FAVIOLA DE LA ROSA APRN [id number] 07/10/2014 12:24:00 07/10/2014 23:59: 59 CLS Outpatient 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 AND MENDER, ROSEANN S [id number] 07/08/2014 15:21:00 07/08/2014 23:59: 59 CLS Outpatient GABBY INSPECTOR AND MENDER, ROSEANN S [id number] 01/14/2014 10:05:00 01/14/2014 23:59: 59 CLS Outpatient GABBY INSPECTOR AND MENDER, ROSEANN S [id number] 12/08/2013 09:42:00 12/08/2013 23:59: 59 CLS Outpatient GABBY INSPECTOR AND MENDER, ROSEANN S [id number] 05/26/2013 10:20:00 05/26/2013 23:59: 59 CLS Outpatient GABBY INSPECTOR AND MENDER, ROSEANN S [id number] 05/07/2013 14:23:00 05/07/2013 23:59: 59 CLS Outpatient GABBY INSPECTOR AND MENDER, ROSEANN S [id number] 10/07/2012 10:02:00 10/07/2012 23:59: 59 CLS Outpatient GABBY INSPECTOR AND MENDER, ROSEANN S [id number] 07/16/2012 08:57:00 07/16/2012 23:59: 59 CLS Outpatient GABBY INSPECTOR AND MENDER, ROSEANN S [id number] 05/08/2012 10:55:00 05/08/2012 23:59:5 9 CLS Outpatient [id number] 06/19/2011 12:00:00 06/19/2011 23:59: 59 CLS Outpatient GABBY INSPECTOR AND MENDER, ROSEANN S [id number] 02/19/2013 15:26:00 Document Registration [id number] 10/07/2012 10:02:00 Document Registration [id number] 11/05/2018 10:25:22 11/05/2018 23:59:5 9 CLS Outpatient
--- NOTE | 2020-02-28 02:50 | NUR ---
VENECIA KUMAR admitted to room 415-1, with an admitting diagnosis of Pelvic Fracture/ Fall from same level., on 02/28/20 from ED via Cart, accompanied by Staff.VENECIA KUMAR introduced to surroundings, call light, bed controls, phone, TV, temperature control, lights, meal times, smoking policy, visitor policy, side rail policy, bathrooms and showers. Patient Rights given to patient in the handbook. VENECIA KUMAR verbalizes understanding that [facility] is not responsible for the loss or damage to any personal effects or valuables that are kept in the patients posession during their hospitalization. The following Patient Care Plans were discussed with the patient: Discharge Planning, Falls,Fractures, and Infection Control. VENECIA KUMAR verbalizes understanding of Interdisciplinary Patient Education. Patient and/or family were informed about the Rapid Response Team and its purpose.
[2020-02-28] MEDS ORDERED: ONDANSETRON 4 MG/2 ML (SDV) Z0FRAN IV PRN (04:45)
--- NOTE | 2020-02-28 08:11 | Diagnostic Imaging Report ---
PROCEDURE: CT pelvis without contrast. TECHNIQUE: Multiple contiguous axial images were obtained through the pelvis without the use of intravenous contrast. Sagittal and coronal reformations were performed. Auto Exposure Controls were utilized during the CT exam to meet ALARA standards for radiation dose reduction. INDICATION: Fall, right hip and back pain. COMPARISON made with prior radiographs from January 20, 2020. FINDINGS: There is an acute displaced fracture of the right inferior pubic ramus and also a displaced fracture demonstrated of the parasymphyseal right superior ramus. There is adjacent soft tissue stranding likely reflecting a small component of blood. There appears to be extra peritoneal hemorrhage within the pelvis anterior to the bladder. There is no intraperitoneal hemorrhage demonstrated. Additionally, there are acute fractures involving the right aspect of the inferior sacrum which involve the SI joint with mild widening of the right SI joint. There are no findings of hip dislocation. There is no proximal femoral fracture. Visualized loops of bowel appear nonobstructed. IMPRESSION: 1. Acute displaced right parasymphyseal superior pubic ramus and right inferior pubic rami fractures with associated adjacent hemorrhage as well as extraperitoneal blood products within the low pelvis. 2. Acute right sacral fracture involving the right SI joint with mild SI joint widening. 3. No hip dislocation or proximal femoral fracture. 4. I agree with the preliminary [facility] report. Dictated by: Dictated on workstation # [id number]
--- NOTE | 2020-02-28 08:15 | Diagnostic Imaging Report ---
PROCEDURE: CT lumbar spine without contrast. TECHNIQUE: Multiple contiguous axial images were obtained through the lumbar spine without the use of intravenous contrast. Sagittal and coronal reformations were then performed. Auto Exposure Controls were utilized during the CT exam to meet ALARA standards for radiation dose reduction. INDICATION: Fall, back pain. CORRELATION made with CT pelvis performed the same day. FINDINGS: The patient's previously described acute fracture of the right sacrum is reidentified. There is slight widening of the right SI joint. Alignment of the lumbar spine appears within normal limits. The vertebral body heights are maintained. The facets are normally aligned. There is no facet joint or disc space widening. There are no findings of an acute lumbar fracture. There are background features of degenerative disc disease with the most advanced disc space height loss at the L1-L2, L2-L3 and L5-S1 levels. The paraspinal soft tissues unremarkable. The kidneys appear nonobstructed. There is a right renal cyst. The aorta is normal in caliber. IMPRESSION: 1. Re-identification of a right sacral fracture involving the right SI joint with slight SI joint widening. 2. Background lumbar degenerative disc disease and facet arthropathy without CT findings of an acute lumbar fracture or traumatic malalignment. 3. I agree with the preliminary [facility] report. Dictated by: Dictated on workstation # [id number]
--- NOTE | 2020-02-28 09:53 | History & Physical ---
History of Present Illness History of Present Illness Reason for visit/HPI 75 yo F fell last night due to unlevel concrete- she was watering her plants and tripped and fell. She reports she has lived at her current house for 8 years with no falls; until this year. She has fallen a couple times mostly from tripping. Denies any aura or prodrome that would suggest she is going to pass out/fall. She hurt her left wrist previously and was told she had osteopenia. Her right hip was hurting her 3 weeks ago and she was given antiinflammatory cream to put on it. It has helped some. Patient this AM was not wanting PT/OT to come today. She just wants to rest in her room. She is considering going to live with her daughter in . Date of Admission Feb 28, 2020 at 01:58 Date Seen by a Provider: Feb 28, 2020 Time Seen by a Provider: 09:38 I consulted on this patient on 02/28/20 09:38 Attending Physician Hemanth Matos MD Admitting Physician Michelle Pruitt MD Consult Allergies and Home Medications Allergies Coded Allergies: Penicillins (Unverified Allergy, Intermediate, ITCHING ALL OVER, 06/06/16) Sulfa (Sulfonamide Antibiotics) (Unverified Allergy, Unknown, ITCHINESS TO LEGS, 02/27/14) sucralfate (Unverified Allergy, Unknown, 02/28/20) Home Medications Aspirin 81 Mg Tablet.dr, 81 MG PO 1900, (Reported) Calcium Carb & Cit/Vitamin D3 1 Each Tablet.er, 1 TAB PO BID, (Reported) 630MG/500IU Cyanocobalamin 1,000 Mcg Tab.subl, 1,000 MCG SL DAILY, (Reported) Dicyclomine HCl 20 Mg Tablet, 20 MG PO TID, (Reported) Docusate Sodium 100 Mg Capsule, 200 MG PO 1900, (Reported) Fish Oil/Dha/Epa 1 Each Capsule, 1 CAP PO DAILY, (Reported) Metoprolol Tartrate 50 Mg Tablet, 25 MG PO BID, (Reported) Multivitamin 1 Each Tablet, 1 TAB PO DAILY, (Reported) Pyridoxine Hcl 100 Mg Tablet, 100 MG PO 1900, (Reported) Simvastatin 80 Mg Tablet, 80 MG PO 1900, (Reported) Vitamin E Mixed 400 Unit Tablet, 400 UNIT PO DAILY, (Reported) Patient Home Medication List Home Medication List Reviewed: Yes Past Ipgevgh-Vidmfg-Gsrcqg Hx Patient Social History Marrital Status: Alcohol Use: Denies Use Recreational Drug Use: No Smoking Status: Former Smoker Former Smoker, Quit: Nov 04, 1968 2nd Hand Smoke Exposure: No Recent Foreign Travel: No Contact w/other who traveled: No Recent Hopitalizations: No Recent Infectious Disease Expo: No Immunizations Up To Date Tetanus Booster (TDap): Unknown Date of Pneumonia Vaccine: May 06, 2013 Date of Influenza Vaccine: May 08, 2018 Seasonal Allergies Seasonal Allergies: Yes Surgeries Yes (egd/colonoscopy) Eye Surgery, Gallbladder, Tubal Ligation Respiratory Yes Cardiovascular Yes High Cholesterol, Hypertension Neurological No 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 System : No Hx 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 Disorders: No Sexually Transmitted Disease: Yes HIV/AIDS: 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, 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 Genitourinary Yes (STAGE 3 KIDNEY DISEASE 11/10/18) Renal Failure Gastrointestinal Yes Gastroesophageal Reflux, Ulcer Musculoskeletal Yes Arthritis Endocrine History of Endocrine Disorders: No HEENT HEENT Disorders: Cataract Cancer No Psychosocial History of Psychiatric Problem: Yes Behavioral Health Disorders: Anxiety, Depression Integumentary History of Skin or Integumenta: No Blood Transfusions History of Blood Disorders: No Adverse Reaction to a Blood Tr: No (N/A) Family Medical History Significant Family History: Stroke, Vascular Disease Review of Systems Review of Systems General: No Chills, No Night Sweats HEENT: No Head Aches, No Visual Changes Pulmonary: No Dyspnea, No Cough Cardiovascular: No: Chest Pain, Palpitations Gastrointestinal: No: Nausea, Vomiting Genitourinary: No Dysuria Musculoskeletal: other (pelvic pain.) Neurological: Weakness Physical Exam Vital Signs Vital Signs - First Documented 02/27/20 21:38 Temp 36.4 Pulse 80 Resp 16 B/P (MAP) 99/64 (76) Pulse Ox 97 O2 Delivery Room Air Capillary Refill : Less Than 3 SecondsLess Than 3 Seconds Height, Weight, BMI Height: 5'3.00" Weight: 125lbs. 0.0oz. 56.576948hw; 24.16 BMI Method:Stated General Appearance: Mild Distress HEENT: PERRL/EOMI Neck: Non Tender, Supple Respiratory: Chest Non Tender, Lungs Clear, Normal Breath Sounds, No Accessory Muscle Use, No Respiratory Distress Cardiovascular: Regular Rate, Rhythm, No Edema Gastrointestinal: Non Tender, Soft Rectal: Deferred Back: No CVA Tenderness Extremity: Non Tender, Other (pain in right pelvis with lifting right leg) Neurologic/Psychiatric: Alert, Oriented x3 Skin: Warm/Dry Assessment/Plan Assessment/Plan Admission Dx pelvic pain right pelvis fracture Admission Status: Observation Assessment and Plan 02/28/20- pain management, SW consult, PT/OT consult. DVT ppx- lovenox Dispo: Orthopedics to evaluate and make recommendations. Patient has 2 sons and 1 daughter- The daughter lives in - and told patient she needs to move to and live with her. Problems: (1) Pelvic fracture Qualifiers: Qualified Codes: S32.810D - Multiple fractures of pelvis with stable disruption of pelvic ring, subsequent encounter for fracture with routine healing Assessment & Plan: ortho referral PT/OT (2) GERD without esophagitis Assessment & Plan: continue pantoprazole (3) HTN (hypertension) Qualifiers: Qualified Codes: I10 - Essential (primary) hypertension Assessment & Plan: resume home regimen -monitor BP as she is on lower end of normal. (4) Osteoarthritis (5) Osteopenia (6) Dysthymic disorder Assessment & Plan: resume ssri (7) Fall on same level Qualifiers: Qualified Codes: W18.30XD - Fall on same level, unspecified, subsequent encounter Clinical Quality Measures DVT/VTE Risk/Contraindication: Risk Factor Score Per Nursin RFS Level Per Nursing on Admit: 4+=Very High HEMANTH MATOS MD Feb 28, 2020 09:53
[2020-02-28] MEDS: HYDROcodone/APAP 5 MG/325 MG (LORTAB) TAB PO PRN ×3 (10:09→20:45)
[2020-02-28] MEDS: DOCUSATE SODIUM 100 MG (COLACE) CAP PO SCH (10:09)
[2020-02-28] MEDS: FLUoxetine HCL 20 MG (PROzac) CAP PO SCH (10:12)
[2020-02-28] MEDS: ENOXAPARIN 40 MG/0.4 ML (LOVENOX) SYR SC SCH (10:12)
[2020-02-28] MEDS: PANTOPRAZOLE 40 MG (PROTONIX) TAB PO SCH (10:12)
[2020-02-28] MEDS: lisINopril 20 MG (PRINIVIL) TABLET PO SCH (10:12)
--- NOTE | 2020-02-28 13:26 | Occ Therapy Progress Note ---
Therapy Progress Note OT/PT orders received, chart reviewed. Pt. sustained fall with multiple pelvic fx. Spoke with nursing. Pt. awaiting consult with orthopedic physician. Will not assess at this time for movement/mobility due to awaiting consult. Nursing will ensure upright posture in bed/SCDs for lung and DVT control. [id number] MAGALY SIMON OT Feb 28, 2020 13:26
--- NOTE | 2020-02-28 14:20 | Consultation - Surgery ---
History of Present Illness History of Present Illness Patient Consulted On(patricia/time) 02/28/20 14:15 Time Seen by Provider: 12:43 History of Present Illness Surgery asked to consult for Trauma admit. HPI per ED: This 75-year-old woman presents to the emergency room via EMS after having a fall in her yard when she tripped on uneven concrete. She denies any lightheadedness, dizziness, or other prodrome. She fell on her right side onto the right hip and now complains of right hip pain and lower back pain. She denies any head injury or loss of consciousness. She laid on the ground for a little while and then crawled to a fence where she was able to pull herself up. She then used a board for a crutch and was able to get into the house and activated EMS. The incident around 19:30. When I spoke to the pt this afternoon her main complaint was of pain; but that only happens when she moves. She was also asking what the plan would be for getting better. Rating pain 10 out of 10 when she has to move. Allergies and Home Medications Allergies Coded Allergies: Penicillins (Unverified Allergy, Intermediate, ITCHING ALL OVER, 06/06/16) Sulfa (Sulfonamide Antibiotics) (Unverified Allergy, Unknown, ITCHINESS TO LEGS, 02/27/14) sucralfate (Unverified Allergy, Unknown, 02/28/20) Home Medications Aspirin 81 Mg Tablet.dr, 81 MG PO 1900, (Reported) Calcium Carb & Cit/Vitamin D3 1 Each Tablet.er, 1 TAB PO BID, (Reported) 630MG/500IU Cyanocobalamin 1,000 Mcg Tab.subl, 1,000 MCG SL DAILY, (Reported) Dicyclomine HCl 20 Mg Tablet, 20 MG PO TID, (Reported) Docusate Sodium 100 Mg Capsule, 200 MG PO 1900, (Reported) Fish Oil/Dha/Epa 1 Each Capsule, 1 CAP PO DAILY, (Reported) Metoprolol Tartrate 50 Mg Tablet, 25 MG PO BID, (Reported) Multivitamin 1 Each Tablet, 1 TAB PO DAILY, (Reported) Pyridoxine Hcl 100 Mg Tablet, 100 MG PO 1900, (Reported) Simvastatin 80 Mg Tablet, 80 MG PO 1900, (Reported) Vitamin E Mixed 400 Unit Tablet, 400 UNIT PO DAILY, (Reported) Patient Home Medication List Home Medication List Reviewed: Yes Past Lgwfjfn-Xusumw-Snoosb Hx Patient Social History Alcohol Use: Denies Use Recreational Drug Use: No Smoking Status: Former Smoker Former Smoker, Quit: Nov 04, 1968 2nd Hand Smoke Exposure: No Recent Foreign Travel: No Contact w/Someone Who Travel: No Recent Infectious Disease Expo: No Recent Hopitalizations: No Immunizations Up To Date Tetanus Booster (TDap): Unknown Date of Pneumonia Vaccine: May 06, 2013 Date of Influenza Vaccine: May 08, 2018 Seasonal Allergies Seasonal Allergies: Yes Surgeries History of Surgeries: Yes (egd/colonoscopy) Surgeries: Eye Surgery, Gallbladder, Tubal Ligation Respiratory History of Respiratory Disorde: Yes Respiratory Disorders: Asthma, COPD Cardiovascular History of Cardiac Disorders: Yes Cardiac Disorders: High Cholesterol, Hypertension Neurological History of Neurological Disord: No 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 System : No Hx 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 Disorders: No Sexually Transmitted Disease: Yes HIV/AIDS: 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, 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 Genitourinary History of Genitourinary Disor: Yes (STAGE 3 KIDNEY DISEASE 11/10/18) Genitourinary Disorders: Renal Failure Gastrointestinal History of Gastrointestinal Di: Yes Gastrointestinal Disorders: Gastroesophageal Reflux, Ulcer Musculoskeletal History of Musculoskeletal Dis: Yes Musculoskeletal Disorders: Arthritis Endocrine History of Endocrine Disorders: No HEENT HEENT Disorders: Cataract Cancer History of Cancer: No Psychosocial History of Psychiatric Problem: Yes Behavioral Health Disorders: Anxiety, Depression Integumentary History of Skin or Integumenta: No Blood Transfusions History of Blood Disorders: No Adverse Reaction to a Blood Tr: No (N/A) Family Medical History Significant Family History: Diabetes (mother), Stroke, Vascular Disease Review of Systems-General Constitutional: malaise, weakness EENTM: No blurred vision, No double vision, No mouth pain, No mouth swelling, No epistaxis Respiratory: No cough, No dyspnea on exertion, No hemoptysis Cardiovascular: No chest pain, No edema Gastrointestinal: No abdominal pain, No nausea, No vomiting Genitourinary: No dysuria, No frequency, No hematuria Musculoskeletal: joint pain, joint swelling, muscle pain, muscle stiffness Skin: No change in color, No change in hair/nails Psychiatric/Neurological: Anxiety, Depressed; Denies Seizure, Denies Tremors Other pt denies any hx of abnormal bleeding or bruising Physical Exam-General Problems Physical Exam Vital Signs Vital Signs - First Documented 02/27/20 21:38 Temp 36.4 Pulse 80 Resp 16 B/P (MAP) 99/64 (76) Pulse Ox 97 O2 Delivery Room Air Capillary Refill : Less Than 3 SecondsLess Than 3 Seconds General Appearance: no apparent distress, thin Eyes: Bilateral Eye PERRL, Bilateral Eye EOMI HEENT: pharynx normal; No scleral icterus (R), No scleral icterus (L) Neck: full range of motion, supple Respiratory: chest non-tender, lungs clear, normal breath sounds, no respiratory distress, no accessory muscle use Cardiovascular: regular rate, rhythm, no murmur Gastrointestinal: non tender, soft, no organomegaly, no pulsatile mass Back: no CVA tenderness, no vertebral tenderness Extremities: no pedal edema, no calf tenderness, normal capillary refill, other (hurts to move right leg, extreme pain if she rolls around especially with weight on right side) Neurologic/Psychiatric: water main pipe layer II-XII nml as tested, alert, normal mood/affect, oriented x 3 Skin: normal color, warm/dry Data Review Labs Laboratory Tests 02/27/20 22:35: White Blood Count 13.7H, Red Blood Count 3.92L, Hemoglobin 11.9, Hematocrit 36, Mean Corpuscular Volume 91, Mean Corpuscular Hemoglobin 30, Mean Corpuscular Hemoglobin Concent 33, Red Cell Distribution Width 12.9, Platelet Count 153, Mean Platelet Volume 10.9H, Neutrophils (%) (Auto) 85H, Lymphocytes (%) (Auto) 8L, Monocytes (%) (Auto) 6, Eosinophils (%) (Auto) 0, Basophils (%) (Auto) 0, Neutrophils # (Auto) 11.7H, Lymphocytes # (Auto) 1.1, Monocytes # (Auto) 0.9, Eosinophils # (Auto) 0.0, Basophils # (Auto) 0.0, Sodium Level 140, Potassium Level 3.6, Chloride Level 107, Carbon Dioxide Level 20L, Anion Gap 13, Blood Urea Nitrogen 15, Creatinine 1.03, Estimat Glomerular Filtration Rate 52, BUN/Creatinine Ratio 15, Glucose Level 129H, Calcium Level 9.0 Radiology Date of Exam:02/27/20 CT PELVIS WO PROCEDURE: CT pelvis without contrast. TECHNIQUE: Multiple contiguous axial images were obtained through the pelvis without the use of intravenous contrast. Sagittal and coronal reformations were performed. Auto Exposure Controls were utilized during the CT exam to meet ALARA standards for radiation dose reduction. INDICATION: Fall, right hip and back pain. COMPARISON made with prior radiographs from January 20, 2020. FINDINGS: There is an acute displaced fracture of the right inferior pubic ramus and also a displaced fracture demonstrated of the parasymphyseal right superior ramus. There is adjacent soft tissue stranding likely reflecting a small component of blood. There appears to be extra peritoneal hemorrhage within the pelvis anterior to the bladder. There is no intraperitoneal hemorrhage demonstrated. Additionally, there are acute fractures involving the right aspect of the inferior sacrum which involve the SI joint with mild widening of the right SI joint. There are no findings of hip dislocation. There is no proximal femoral fracture. Visualized loops of bowel appear nonobstructed. IMPRESSION: 1. Acute displaced right parasymphyseal superior pubic ramus and right inferior pubic rami fractures with associated adjacent hemorrhage as well as extraperitoneal blood products within the low pelvis. 2. Acute right sacral fracture involving the right SI joint with mild SI joint widening. 3. No hip dislocation or proximal femoral fracture. 4. I agree with the preliminary [facility] report. Dictated by: Dictated on workstation # [id number] Dict: 02/28/20 0806 Trans: 02/28/20 1115 [facility] [id number] Interpreted by: IRENE BENTON MD Electronically signed by: IRENE BENTON MD 02/28/20 1115 Assessment/Plan Assessment/Plan Assessment/Plan Trauma secondary to Fall Fx of anterior and posterior right pubic rami Fx of right SI joint with widening Retroperitoneal hematoma Pt will need pain control, possibly rehab, Orthopedics will be in on Sunday for more direction of her care. She had a small hematoma around the fracture but nothing intraperitoneally and this should be self limiting. I will sign off because no need for General Surgery. Clinical Quality Measures DVT/VTE Risk/Contraindication: Risk Factor Score Per Nursin RFS Level Per Nursing on Admit: 4+=Very High SONY HERNANDEZ DO Feb 28, 2020 14:20
--- NOTE | 2020-02-28 14:29 | Physical Therapy Progress Note ---
Therapy Progress Note Pt will fall, sustaining (R) rami Fx and widening of SI joint. Awaiting ortho consult. PT will hold evaluation until further evaluated. LATHA SOSA DPT Feb 28, 2020 14:29
[2020-02-28] MEDS: amLODIPine 2.5MG (NORVASC) TAB PO SCH (18:09)
[2020-02-29] VITALS: BP 111/63
[2020-02-29 04:00] VITALS: BP 106/60
[2020-02-29] MEDS: HYDROcodone/APAP 5 MG/325 MG (LORTAB) TAB PO PRN (04:43)
[2020-02-29 07:21] VITALS: BP 111/61
[2020-02-29] MEDS: PANTOPRAZOLE 40 MG (PROTONIX) TAB PO SCH (09:19)
[2020-02-29] MEDS: DOCUSATE SODIUM 100 MG (COLACE) CAP PO SCH (09:19)
[2020-02-29] MEDS: ENOXAPARIN 40 MG/0.4 ML (LOVENOX) SYR SC SCH (09:19)
[2020-02-29] MEDS: FLUoxetine HCL 20 MG (PROzac) CAP PO SCH (09:19)
[2020-02-29] MEDS: lisINopril 20 MG (PRINIVIL) TABLET PO SCH (09:19)
--- NOTE | 2020-02-29 10:09 | Progress Note ---
Subjective Subjective Date Seen by Provider: Feb 29, 2020 Time Seen by Provider: 10:06 No overnight events. Pt reports she feels tired this AM. PT/OT checked on patient but awaiting orthopedics recommendations on how to proceed. She is drinking fluids but has a poor appetite currently. She misses her dogs. Review of Systems General: No Chills, No Night Sweats HEENT: No Head Aches, No Visual Changes Pulmonary: No Dyspnea, No Cough Cardiovascular: No: Chest Pain, Palpitations Gastrointestinal: No: Nausea, Vomiting Genitourinary: No Dysuria Musculoskeletal: other (pelvic pain.) Neurological: Weakness Objective Exam Vital Signs Vital Signs Date Time Temp Pulse Resp B/P (MAP) Pulse Ox O2 Delivery O2 Flow Rate FiO2 02/29/20 07:21 36.9 77 16 111/61 (78) 96 Room Air 02/29/20 04:00 36.1 70 12 106/60 (75) 96 Room Air 02/29/20 00:00 36.7 81 16 111/63 (79) 95 Room Air 02/28/20 20:00 Room Air 02/28/20 19:23 36.2 69 18 102/65 (77) 95 Room Air 02/28/20 16:15 36.4 71 20 111/72 (85) 93 Room Air 02/28/20 14:09 Room Air 02/28/20 12:00 36.2 88 16 131/85 (100) 94 Room Air I & O 02/29/20 07:00 Intake Total 1900 ml Output Total 2050 ml Balance -150 ml General Appearance: Mild Distress (with movement.) Eyes: Bilateral Eye PERRL, Bilateral Eye EOMI HEENT: PERRL/EOMI Neck: Non Tender, Supple Respiratory: Chest Non Tender, Lungs Clear, Normal Breath Sounds, No Accessory Muscle Use, No Respiratory Distress Cardiovascular: Regular Rate, Rhythm, No Edema Gastrointestinal: Non Tender, Soft Rectal: Deferred Back: No CVA Tenderness Extremity: Non Tender, Other (pain in right pelvis with lifting right leg) Neurologic/Psychiatric: Alert, Oriented x3 Skin: Warm/Dry Assessment/Plan Assessment/Plan Admission Dx pelvic pain right pelvis fracture Assessment and Plan 02/28/20- pain management, SW consult, PT/OT consult. 02/29/20- no overnight events. Orthopedics to come by today and evaluate pt. Blood pressure is normal. Afebrile. Checking CBC, BMP today to see if her leukocytosis has came down and the BMP since she is on lovenox. DVT ppx- lovenox Dispo: Orthopedics to evaluate and make recommendations. Patient has 2 sons and 1 daughter- The daughter lives in - and told patient she needs to move to and live with her. Problems: (1) Pelvic fracture Qualifiers: Qualified Codes: S32.810D - Multiple fractures of pelvis with stable disruption of pelvic ring, subsequent encounter for fracture with routine healing Assessment & Plan: ortho referral PT/OT (2) GERD without esophagitis Assessment & Plan: continue pantoprazole (3) HTN (hypertension) Qualifiers: Qualified Codes: I10 - Essential (primary) hypertension Assessment & Plan: resume home regimen -monitor BP as she is on lower end of normal. (4) Osteoarthritis (5) Osteopenia (6) Dysthymic disorder Assessment & Plan: resume ssri (7) Fall on same level Qualifiers: Qualified Codes: W18.30XD - Fall on same level, unspecified, subsequent encounter Admission Dx pelvic pain right pelvis fracture Clinical Quality Measures Admission Status Admission Dx pelvic pain right pelvis fracture DVT/VTE Risk/Contraindication: Risk Factor Score Per Nursin RFS Level Per Nursing on Admit: 4+=Very High STEFANIE MATOS MD Feb 29, 2020 10:09
[2020-02-29 10:15] LABS: BASOPHILS % (AUTO) 0 % (0-10); EOSINOPHILS # (AUTO) 0.1 10^3/uL (0.0-0.3); EOSINOPHILS % (AUTO) 1 % (0-10); HEMATOCRIT 34 % (35-52); HEMOGLOBIN 11.1 G/DL (11.5-16.0); LYMPHOCYTES # (AUTO) 1.3 X 10^3 (1.0-4.0); LYMPHOCYTES % (AUTO) 18 % (12-44); MEAN CORPUSCULAR HEMOGLOBIN 31 PG (25-34); MEAN CORPUSCULAR HGB CONC 33 G/DL (32-36); MEAN CORPUSCULAR VOLUME 93 FL (80-99); MONOCYTES # (AUTO) 0.6 X 10^3 (0.0-1.0); MONOCYTES % (AUTO) 9 % (0-12); NEUTROPHILS # (AUTO) 5.2 X 10^3 (1.8-7.8); NEUTROPHILS % (AUTO) 72 % (42-75); PLATELET COUNT 146 10^3/uL (130-400); WHITE BLOOD COUNT 7.2 10^3/uL (4.3-11.0)
--- NOTE | 2020-02-29 10:15 | NUR ---
This RN called Dr. Acosta at ([phone]) and ([phone]) in attempt to inform DrAdali is a consult to Lisy Portillo, room 415, and in regards to when would be by to see patient.
[2020-02-29 10:23] LABS: POTASSIUM 4.1 MMOL/L (3.6-5.0)
[2020-02-29 10:24] LABS: CALCIUM 8.4 MG/DL (8.5-10.1)
[2020-02-29 10:29] LABS: CREATININE SERUM 1.08 MG/DL (0.60-1.30)
--- NOTE | 2020-02-29 14:31 | Consultation - Ortho ---
Consult - Ortho Subjective Date of Exam 02/29/20 Chief Complaint Right hip and shoulder pain after a fall on 02/27/2020 HPI/Events since last exam Mrs. Portillo is a 75-year-old white female who fell late afternoon on 02/27/2020. She was coming down a wheelchair ramp onto a cement pad and tripped over a crack in the cement pad. She states she landed on her right side. She has a history of chronic back pain and chronic hip pain both aggravated by the fall. She was seen in the emergency room where she is evaluated and x-rayed noted to have a fracture of the superior and inferior pubic rami on the right as well as a sacral fracture extending into her sacroiliac joint was some mild widening. She was admitted for pain management. Again she has chronic back pain but has had no surgery. She's had back pain for years. She's had right hip pain for several months. She states she's had an x- ray here which showed no fractures just osteoporosis. She's been using Tylenol and some type of ointment on the hip which has helped. She does not use a cane or walker. She denies any other injuries although she states she has little bit of pain in the right shoulder since her fall. She denies any numbness or tingling. Denies any pain rating down the leg or numbness or tingling. Medical, Surgical History Reviewed and no additions or changes Social History Reviewed and no additions or changes. She lives alone by herself Family History Reviewed and no additions or changes Review of Systems Reviewed and no additions or changes Allergies: Coded Allergies: Penicillins (Unverified Allergy, Intermediate, ITCHING ALL OVER, 06/06/16) Sulfa (Sulfonamide Antibiotics) (Unverified Allergy, Unknown, ITCHINESS TO LEGS, 02/27/14) sucralfate (Unverified Allergy, Unknown, 02/28/20) Home Meds Reported Medications Lisinopril (Lisinopril) 20 Mg Tablet 02/27/20 Pantoprazole Sodium (Pantoprazole Sodium) 40 Mg Tablet. 02/27/20 Diclofenac Sodium (Diclofenac Sodium) 100 Gm Gel..gram. 02/27/20 Alendronate Sodium (Alendronate Sodium) 70 Mg Tablet 02/27/20 Fluoxetine HCl (Fluoxetine HCl) 20 Mg Capsule 02/27/20 Atorvastatin Calcium (Atorvastatin Calcium) 20 Mg Tablet 02/27/20 Dicyclomine HCl (Dicyclomine HCl) 20 Mg Tablet, 20 MG PO TID, TAB 06/06/16 Docusate Sodium (Colace) 100 Mg Capsule, [place] [address]/27/14 Vitamin E Mixed (VITAMIN E) 400 Unit Tablet, 400 UNIT PO DAILY 02/27/14 Fish Oil/Dha/Epa (Fish Oil 1,200 Mg Fish Oil) 1 Each Capsule, 1 CAP PO DAILY 02/27/14 Aspirin (Aspir 81) 81 Mg Tablet.dr, 81 MG PO 189902/27/14 Calcium Carb & Cit/Vitamin D3 (CALCIUM + VITAMIN D3 CAPLET) 1 Each Tablet.er, 1 TAB PO BID 630MG/500IU 02/27/14 Cyanocobalamin (Vitamin B-12) 1,000 Mcg Tab.subl, 1000 MCG SL DAILY 02/27/14 Pyridoxine Hcl (Vitamin B-6) 100 Mg Tablet, 100 MG PO 189902/27/14 Multivitamin (MULTI VITAMIN DAILY) 1 Each Tablet, 1 TAB PO DAILY 02/27/14 Simvastatin (Simvastatin) 80 Mg Tablet, 80 MG PO 189902/27/14 Metoprolol Tartrate (Metoprolol Tartrate 50 Mg) 50 Mg Tablet, 25 MG PO BID 02/27/14 Discontinued Reported Medications Amlodipine Besylate (Amlodipine Besylate) 5 Mg Tablet 02/27/20 Dexlansoprazole (Dexilant) 60 Mg Cap.bp, 60 MG PO DAILY 06/06/16 Bupropion Hcl (Bupropion Hcl Sr) 200 Mg Tablet.sa, 200 MG PO BID 02/27/14 Discontinued Scripts Hydrocodone Bit/Acetaminophen (LORTAB 5 MG TABLET) 1 Each Tablet, 1 TAB PO Q6H PRN for PAIN-MODERATE TO SEVERE MDD 10, #15 TAB Prov:KETTY NELSON MD 11/10/18 Prednisone (Prednisone) 20 Mg Tab, 20 MG PO DAILY, #6 TAB 0 Refills Prov:ANTONETTE ALMARAZ MD 11/06/17 Objective Exam Constitutional: [] HEENT: [] Neck: [No pain with palpation or range of motion] Cardiovascular: [] Respiratory: [] Gastrointestinal: [] Genitourinary: [] Skin: [] Back/Spine: [Mild lower back pain with palpation. Pain over the right sacroiliac joint. The patient was unable to sit up due to her pelvic pain.] Extremities: [Upper extremitiesfull range of motion left shoulder, elbow and wrist without pain. No deformity. Normal sensation. Good strength. Good radial pulse. Left upper extremity shows full motion of the left shoulder with minimal pain. Pain with palpation over the anterior subacromial space. No pain in the upper arm, elbow, forearm, wrist or hand. Normal sensation to the fingers and thumb with good cap refill and good radial pulse. Left lower extremityno pain with palpation or range of motion left hip. Surgical excision left knee for a total knee arthroplasty. Good range of motion without pain. No pain at the ankle with full range of motion no instability. No weakness noted in left lower extremity. Normal sensation with good cap refill and equal pulses to the right lower extremity Pain on palpation right anterior pelvis. Pain over the right greater trochanter. Gentle range of motion causes mainly pelvic pain. No pain in the thigh. No pain in the knee with palpation. Gentle range of motion causes no pain in the knee but pain in the pelvis and hip region. No pain at the ankle full range of motion. No instability. Normal sensation to the foot and toes with good capillary refill. Pulses equal to the left side. No weakness noted on dorsiflexion foot plantarflexion of the foot or dorsiflexion of the great toe] Neurologic: [] Psychiatric: [] Hematologic/lymphatic/immunologic: [] Vital Signs Vital Signs Date Time Temp Pulse Resp B/P (MAP) Pulse Ox O2 Delivery O2 Flow Rate FiO2 02/29/20 10:33 96 Room Air 02/29/20 07:21 36.9 77 16 111/61 (78) 96 Room Air 02/29/20 04:00 36.1 70 12 106/60 (75) 96 Room Air 02/29/20 00:00 36.7 81 16 111/63 (79) 95 Room Air 02/28/20 20:00 Room Air 02/28/20 19:23 36.2 69 18 102/65 (77) 95 Room Air 02/28/20 16:15 36.4 71 20 111/72 (85) 93 Room Air I & O 02/29/20 07:00 Intake Total 1900 ml Output Total 2050 ml Balance -150 ml Lab Results Laboratory Tests 02/29/20 10:09: White Blood Count 7.2, Red Blood Count 3.63L, Hemoglobin 11.1L, Hematocrit 34L, Mean Corpuscular Volume 93, Mean Corpuscular Hemoglobin 31, Mean Corpuscular Hemoglobin Concent 33, Red Cell Distribution Width 13.0, Platelet Count 146, Mean Platelet Volume 10.0, Neutrophils (%) (Auto) 72, Lymphocytes (%) (Auto) 18, Monocytes (%) (Auto) 9, Eosinophils (%) (Auto) 1, Basophils (%) (Auto) 0, Neutrophils # (Auto) 5.2, Lymphocytes # (Auto) 1.3, Monocytes # (Auto) 0.6, Eosinophils # (Auto) 0.1, Basophils # (Auto) 0.0, Sodium Level 138, Potassium Level 4.1, Chloride Level 104, Carbon Dioxide Level 24, Anion Gap 10, Blood Urea Nitrogen 12, Creatinine 1.08, Estimat Glomerular Filtration Rate 49, BUN/Cr eatinine Ratio 11, Glucose Level 116H, Calcium Level 8.4L Imaging CT scan of the pelvis was reviewed which shows a fracture through the sacrum extending into the lower aspect of the sacroiliac joint with some minimal to mild widening. Fractures of the spearing inferior pubic rami are noted on the right. X-rays of the pelvis show no changes as described above. No extension into the right hip joint. No hip fractures. X-ray left shoulder shows no fracture or dislocation Assessment and Plan Assessment Fracture right sacrum and inferior and superior pubic rami on the right Problem List Unchanged Plan Planthe above was discussed with the patient. I explained to her that I'm not an expert on pelvic fractures. Just looking at her fracture pattern on CT and x-rays suggest that this is a stable fracture. I think this probably could be treated nonoperatively. Again this is a little beyond my expertise is I do not operate on pelvic fractures. What I would recommend is trying to get her up with physical therapy and see how she does. Repeat x-rays and see if there is any changes in approximately week to 10 days. If there is any changes especially at the SI joint I would recommend referral to trauma surgeon to evaluate her pelvic and sacral fractures. Most likely she has a rotator cuff tendinitis her shoulder sprain/strain that should improve with time. I think she can use the right arm as she feels comfortable. She is fine with the above. She would prefer not having to have surgery unless it's absolutely necessary. So again we'll get her started with physical therapy walker ambulation weightbearing as tolerated on the right. Final Diagonsis Fracture right superior and inferior pubic rami Fracture right sacrum extending into the sacroiliac joint with minimal to mild displacement Sprain/strain right shoulder Chronic lower back pain Chronic right hip pain probably greater trochanteric bursitis Status post left total knee arthroplasty Level of the visit: Level 3 PAWAN DICKENS MD Feb 29, 2020 14:31
--- NOTE | 2020-02-29 15:04 | Diagnostic Imaging Report ---
INDICATION: Shoulder pain status post fall. EXAMINATION: Right shoulder, 02/29/2020. FINDINGS: Two views of the shoulder. There is no evidence for an acute fracture or dislocation. The joint spaces are well maintained. There is no significant soft tissue swelling. IMPRESSION: No acute process. Dictated by: Dictated on workstation # [id number]
--- NOTE | 2020-02-29 15:06 | Diagnostic Imaging Report ---
INDICATION: Follow up fractures of the pubic symphysis. EXAMINATION: Pelvis, 02/29/2020. COMPARISON: Correlation made to CT pelvis from 02/27/2020. FINDINGS: A single view of the pelvis redemonstrates comminuted superior and inferior right pubic ramus fractures. The right superior pubic ramus fracture is displaced similar to the previous examination. No significant interval callus formation is appreciated. The hip joint spaces are intact. IMPRESSION: Stable superior and inferior pubic ramus fractures on the right. Dictated by: Dictated on workstation # [id number]
[2020-02-29 16:23] VITALS: BP 104/59
[2020-02-29] MEDS: amLODIPine 2.5MG (NORVASC) TAB PO SCH (18:04)
[2020-03-01 00:48] VITALS: BP 111/52
[2020-03-01] MEDS: HYDROcodone/APAP 5 MG/325 MG (LORTAB) TAB PO PRN ×2 (06:33→14:12)
--- NOTE | 2020-03-01 06:55 | Progress Note ---
Subjective Subjective Date Seen by Provider: Mar 01, 2020 Time Seen by Provider: 07:00 Pt reports significant pain especially when she is being rolled over or moving right leg. She has not been able to stand or put any weight on her right leg since the fall. She states that physical therapy has been very hard due to the pain. She is willing to look at the inpatient rehab unit due to her inability to return home in her current state and understands that the pelvic injury may take a long time to heal. She reports a decreased appetite since being in the hospital, but states it has not been very good prior to this injury. She also reports a chronic issue with constipation, her last BM was right after she fell she went inside and had a good bowel movement. She has chronic nasal congestion and drainage from what she reports is allergies that does cause her to cough sometimes. Review of Systems General: No Chills; Appetite (decreased) HEENT: No Head Aches, No Visual Changes; Sinus Congestion (chronic), Post Nasal Drip (chronic) Pulmonary: No Dyspnea; Cough (related to nasal congestion) Cardiovascular: No: Chest Pain, Palpitations Gastrointestinal: Constipation (Chronic); No: Nausea, Vomiting Genitourinary: No Dysuria Musculoskeletal: other (pelvic pain.) Neurological: Weakness Objective Exam Vital Signs Vital Signs - First Documented 02/27/20 21:38 Temp 36.4 Pulse 80 Resp 16 B/P (MAP) 99/64 (76) Pulse Ox 97 O2 Delivery Room Air Capillary Refill : Less Than 3 SecondsLess Than 3 Seconds General Appearance: WD/WN, Mild Distress Eyes: Bilateral Eye PERRL, Bilateral Eye EOMI HEENT: PERRL/EOMI Neck: Full Range of Motion, Non Tender, Supple Respiratory: Chest Non Tender, Lungs Clear, Normal Breath Sounds, No Accessory Muscle Use, No Respiratory Distress Cardiovascular: Regular Rate, Rhythm, No Edema, Normal Peripheral Pulses Gastrointestinal: Normal Bowel Sounds, Non Tender, Soft Rectal: Deferred Back: No CVA Tenderness Extremity: Normal Inspection; No Normal Range of Motion (decerased right leg due to pain); No Pedal Edema, Other (pain in right pelvis with lifting right leg) Neurologic/Psychiatric: Alert, Oriented x3 Skin: Warm/Dry Results Lab Laboratory Tests 02/29/20 10:09: White Blood Count 7.2, Red Blood Count 3.63L, Hemoglobin 11.1L, Hematocrit 34L, Mean Corpuscular Volume 93, Mean Corpuscular Hemoglobin 31, Mean Corpuscular He moglobin Concent 33, Red Cell Distribution Width 13.0, Platelet Count 146, Mean Platelet Volume 10.0, Neutrophils (%) (Auto) 72, Lymphocytes (%) (Auto) 18, Monocytes (%) (Auto) 9, Eosinophils (%) (Auto) 1, Basophils (%) (Auto) 0, Neutrophils # (Auto) 5.2, Lymphocytes # (Auto) 1.3, Monocytes # (Auto) 0.6, Eosinophils # (Auto) 0.1, Basophils # (Auto) 0.0, Sodium Level 138, Potassium Level 4.1, Chloride Level 104, Carbon Dioxide Level 24, Anion Gap 10, Blood Urea Nitrogen 12, Creatinine 1.08, Estimat Glomerular Filtration Rate 49, BUN/Creatinine Ratio 11, Glucose Level 116H, Calcium Level 8.4L Assessment/Plan Assessment/Plan Admission Status: Inpatient Order (span 2 midnights) Assessment and Plan RIGHT PELVIC FRACTURE -CONSULTED ORTHOPEDICS -STABLE CURRENTLY RECOMMENDED NON-OPERATIVE CARE WHICH IS THE PATIENT PREFERENCE WELL -PAIN MANAGEMENT CONTROLLED WITH LORTAB 5MG Q4 PRN , -PATIENT MAY NEED TO REQUEST MEDICATION PRIOR TO THERAPY -PATIENT ONLY GIVEN MEDICATION 1X YESTERDAY -CONTINUE OT/PT, ENCOURAGED PARTICIPATION -CONSIDER INPATIENT REHAB UNIT OSTEOPOROSIS -CONSIDER RESTARTING HOME MEDICATIONS HYPERTENSION -CONTINUE HOME MEDICATIONS, AMLODIPINE 2.5MG, LISINOPRIL 20MG CONSTIPATION -CHRONIC, MONITOR -CONTINUE COLACE PRN Problems: (1) Pelvic fracture Qualifiers: Qualified Codes: S32.810D - Multiple fractures of pelvis with stable disruption of pelvic ring, subsequent encounter for fracture with routine healing Assessment & Plan: ortho referral PT/OT (2) GERD without esophagitis Assessment & Plan: continue pantoprazole (3) HTN (hypertension) Qualifiers: Qualified Codes: I10 - Essential (primary) hypertension Assessment & Plan: resume home regimen -monitor BP as she is on lower end of normal. (4) Osteoarthritis (5) Dysthymic disorder Assessment & Plan: resume ssri (6) Fall on same level Qualifiers: Qualified Codes: W18.30XD - Fall on same level, unspecified, subsequent encounter Clinical Quality Measures DVT/VTE Risk/Contraindication: Risk Factor Score Per Nursin RFS Level Per Nursing on Admit: 4+=Very High Supervisory-Addendum Brief Verification & Attestation Participated in pt care: history, MDM, physical Personally performed: exam, history, MDM, supervision of care Care discussed with: Medical Student Procedures: n/a Results interpretation: Verified all documentation FALL AT HOME OUT OF DOORS RIGHT PELVIC FRACTURE RIGHT SACRAL FRACTURE HYPERTENSION ESOPHAGEAL REFLUX OSTEOARTHRITIS OSTEOPOROSIS DEPRESSION CONSTIPATION FALL AT HOME OUT OF DOORS WITH SUSTAINED RIGHT PELVIC FRACTURE AND RIGHT SACRAL FRACTURE - PT'S FRACTURES ARE STABLE AND ARE NON-SURGICAL IN NATURE - WILL REQUIRE TIME FOR HEALING. - PT IS NOT ABLE TO SAFELY BE DISCHARGED TO HOME DUE TO HER PAIN AND LACK OF HELP IN THE HOME. 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 - HYDROCODONE PRN - USE FOR PAIN CONTROL HYPERTENSION - RESUMED HOME REGIMEN ESOPHAGEAL REFLUX - RESUMED ACID CONTROL OSTEOPOROSIS - RESUME BISPHOSPHONATE THERAPY, CALCIUM AND VITAMIN D DEPRESSION - RESUME SSRI CONSTIPATION - COLACE SCHEDULED DOC JACKSON STUD Mar 01, 2020 06:55 MEENA RIVERA MD Mar 02, 2020 09:28
[2020-03-01 07:41] VITALS: BP 125/58
[2020-03-01] MEDS: lisINopril 20 MG (PRINIVIL) TABLET PO SCH (08:54)
[2020-03-01] MEDS: DOCUSATE SODIUM 100 MG (COLACE) CAP PO SCH (08:54)
[2020-03-01] MEDS: FLUoxetine HCL 20 MG (PROzac) CAP PO SCH (08:54)
[2020-03-01] MEDS: PANTOPRAZOLE 40 MG (PROTONIX) TAB PO SCH (08:54)
[2020-03-01] MEDS: ENOXAPARIN 40 MG/0.4 ML (LOVENOX) SYR SC SCH (08:55)
--- NOTE | 2020-03-01 09:30 | NUR ---
CARLSON CATH REMOVED.
--- NOTE | 2020-03-01 09:41 | Physical Therapy Evaluation ---
PT Evaluation-General Medical Diagnosis Admission Date Feb 28, 2020 at 01:58 Medical Diagnosis: sacral fracture/superior and inferior pubic rami fracture Onset Date: Feb 28, 2020 Therapy Diagnosis Therapy Diagnosis: debility/weakness Height/Weight Height (Feet): 5 Height (Inches): 3.00 Weight (Pounds): 125 Weight (Ounces): 0.0 Precautions Precautions/Isolations: Fall Prevention, Standard Precautions Weight Bear Status Right Lower Extremity: Right Weight Bearing/Tolerated Left Lower Extremity: Left Full Weight Bearing Referral Physician: Dave Reason for Referral: Evaluation/Treatment Medical History Pertinent Medical History: COPD, HTN, Renal Insufficiency Current History EMS secondary to tripped in yard resulting in right posterior hip and back pain Reviewed History: Yes Social History Home: Single Level Current Living Status: Alone Entry Into Home: Ramp Prior Prior Level of Function SCALE: Activities may be completed with or without assistive devices. 8-Xnpteojcak-izrjuxg completes the activity by him/herself with no assistance from a helper. 5-Set-up or Clean-up Assistance-helper sets up or cleans up; patient completes activity. [place] assists only prior to or following the activity. 4-Supervision or Touching Assistance-helper provides verbal cues and/or touching/steadying and/or contact guard assistance as patient completes activity. Assistance may be provided throughout the activity or intermittently. 3-Partial/Moderate Assistance-helper does LESS THAN HALF the effort. [place] lifts, holds or supports trunk or limbs, but provides less than half the effort. 2-Substantial/Maximal Assistance-helper does MORE THAN HALF the effort. [place] lifts or holds trunk or limbs and provides more than half the effort. 9-Bznxjbxrn-ztnaip does ALL the effort. Patient does none of the effort to complete the activity. Or, the assistance of 2 or more helpers is required for the patient to complete the activity. If activity was not attempted, code reason: 7-Patient Refused. 9-Not Applicable-not attempted and the patient did not perform the activity before the current illness, exacerbation or injury. 10-Not Attempted due to Environmental Limitations-(lack of equipment, weather restraints, etc.). 88-Not Attempted due to Medical Conditions or Safety Concerns. Bed Mobility: 6 Transfers (B,C,W/C): 6 Gait: 6 Stairs: 6 Indoor Mobility (Ambulation): Independent Stairs: Independent Prior Devices Use: None PT Evaluation-Current Subjective Patient agrees to PT. She reports she hasn't been OOB since Sunday. Pain Numeric Pain Scale: 7 Location: Right Location Body Site: Pelvic Pain Description: Acute Objective Patient Orientation: Normal For Age Attachments: Wiley Catheter, IV ROM/Strength ROM Lower Extremities bilateral LE WFL Strength Lower Extremities right LE 3/5 grossly/left LE 4/5 grossly Integumentary/Posture Integumentary refer to nursing notes Bladder Incontinence: Wiley Cath Posture WFL Neuromuscular (Tone, Coordination, Reflexes) grossly intact Sensory Vision: Wears Glasses Hearing: Functional Sensation Right Lower Extremit: Intact Sensation Left Lower Extremity: Intact Transfers Lying to Sitting/Side of Bed(Q: 3 Sit to Stand (QC): 3 Chair/Uwq-of-Dsxzc Xfer(QC): 3 Gait Does the Patient Walk?: No and Walking Goal IS indicated Mode of Locomotion: Walk Anticipated Mode of Locomotion: Walk Distance: 5' Gait Assistive Device: FWW Comments/Gait Description difficulty with weight shifting to right due to pain to advance left LE to safely ambulate. Balance Sitting Static: Normal Sitting Dynamic: Normal Standing Static: Fair Standing Dynamic: Fair Assessment/Needs 75 y.o. female, will benefit from skilled PT to address functional strength and mobility to improve current LOF. Patient is currently limited due to right pelvic pain and difficulty with weight shifting to ambulate. Rehab Potential: Fair PT Chemical Unit Operator Goals Chemical Unit Operator Goals PT Usp Goals Time Frame: Mar 13, 2020 Roll Left & Right (QC): 5 Sit to Lying (QC): 5 Lying-Sitting on Side/Bed(QC): 5 Sit to Stand (QC): 5 Chair/Etk-ak-Sqvmk Xfer(QC): 5 Toilet Transfer (QC): 5 Does the Patient Walk: Yes Walk 10 feet (QC): 5 Walk 50ft with 2 Turns (QC): 5 PT Plan Problem List Problem List: Activity Tolerance, Functional Strength, Balance, Gait, Transfer Treatment/Plan Treatment Plan: Continue Plan of Care Treatment Plan: Bed Mobility, Education, Functional Activity Jose, Functional Strength, Gait, Safety, Therapeutic Exercise, Transfers Treatment Duration: Mar 13, 2020 Frequency: 6 times per week Estimated Hrs Per Day: .25 hour per day Patient and/or Family Agrees t: Yes Discharge Recommendations Therapy Discharge Recommendati: Other, See Comments (care home) Time/GCodes Time In: 825 Time Out: 845 Total Billed Treatment Time: 20 Total Billed Treatment 1 visit EVModC 20 min KRISTEL RAMOS PT Mar 01, 2020 09:41
--- NOTE | 2020-03-01 10:43 | NUR ---
CM/SS visited with the patient for social service consult. Plan: The patient would discharge to a skilled facility for therapies. The patient's physician reports that she talked to the patient about a skilled facility placement. The patient stated that she would like to go to [facility]. CM/SS contacted Christine from [facility] and faxed a referral. Awaiting acceptance/denial. DESIRE/SS visited with the patient. She verified that [facility] is where she would prefer to go and [facility]. The patient is from home and she is currently living alone. The patient reports that she is independent with all of her needs but does sometimes get dizzy and weak. The patient states that she has medical equipment that she kept from her mother (walker, wheelchair, and bedside commode). She is not currently using the walker or wheelchair but does use the commode for the evening time. The patient has 3 adult children that she does have regular contact with. Daughter lives in [place], Son in [place], Son in [place]. The patient reports her daughter has been offering for her to stay with them but the patient does not want to at this time. The patient has a sister who lives in [place] that helps when needed. She stated she will reach out to her for assistance. CM/SS will continue to follow for discharge planning. Addendum: 03/01/20 at 1219 by HIMANSHU AUSTIN The patient was accepted at [facility] for admission tomorrow 03/01. DESIRE/WESTON informed the patient. She verbalized understanding. DESIRE/SS informed the patients physician and nurse.
[2020-03-01] MEDS ORDERED: ASPI-983 PO (11:30)
[2020-03-01] MEDS ORDERED: AMLO5TAB9 PO (11:30)
[2020-03-01] MEDS ORDERED: KRIL1CAP22 PO (11:34)
[2020-03-01] MEDS ORDERED: TURM538C PO (11:34)
[2020-03-01] MEDS ORDERED: CALC600T80 PO (11:34)
[2020-03-01] MEDS ORDERED: MELA3TAB39 PO (11:34)
[2020-03-01] MEDS ORDERED: MULT-1136 PO (11:34)
[2020-03-01] MEDS ORDERED: ACET-2650 PO (11:34)
[2020-03-01] MEDS ORDERED: DOCU100C37 PO (11:34)
--- NOTE | 2020-03-01 11:38 | NUR ---
SPOKE WITH THE PT AND WENT THRU THE EXT MED HISTORY TO COMPLETE THE MED REC AMLODIPINE 5MG LAST FILLED 12-29-2019 #30 1 TAB DAILY- HOWEVER THE PT IS TAKING TAB DAILY SO THAT DECEMBER 2019 FILL WOULD HAVE LASTED 60 DAYS OTC MEDS MELATONIN MTV CALCIUM TYLENOL ASPIRIN 81 DOCUSATE TURMERIC TACOS RED
--- NOTE | 2020-03-01 11:55 | NUR ---
MS WashburnG BALTA FOR INC PAIN. Addendum: 03/01/20 at 1702 by SARAH LEI RN WRONG PT
--- NOTE | 2020-03-01 12:05 | Occupational Therapy Eval ---
OT Evaluation-General/PLF Medical Diagnosis Admission Date Feb 28, 2020 at 01:58 Medical Diagnosis: sacral fracture/superior and inferior pubic rami fracture Onset Date: Feb 28, 2020 Therapy Diagnosis Therapy Diagnosis: Decreased ADL fx Height/Weight Height (Feet): 5 Height (Inches): 3.00 Weight (Pounds): 125 Weight (Ounces): 0.0 Precautions Precautions/Isolations: Fall Prevention, Standard Precautions Weight Bear Status Weight Bearing Restriction: Weight Bearing/Tolerated Location Restriction: R LE, R UE Referral Physician: Dave Referral Reason: Activity Tolerance, Self Care, Evaluation/Treatment, Strengthening/ROM Medical History Pertinent Medical History: COPD, HTN, Renal Insufficiency Additional Medical History see nursing. Current History Pt fell from unlevel concrete in backyard, able to crawl to fence to assist in s tance. EMS bring pt to ER. Pt c/o R hip pain: acute displaced fx with R infereior pubic ramus, parasymphyseal R superior ramus fx, inferior sacurm resulting in mild widening of SI joint. No dislocation or femoral fx. Pt c/o R UE pain. Per ortho notes, nonoperative tx suggested with RUE RTC tendonitis (WBAT). Reviewed History: Yes Social History Home: Single Level Current Living Status: Alone Entry Into Home: Ramp ADL-Prior Level of Function SCALE: Activities may be completed with or without assistive devices. 6-Myxolkwmfi-xtxazcm completes the activity by him/herself with no assistance from a helper. 5-Set-up or Clean-up Assistance-helper sets up or cleans up; patient completes activity. Agency assists only prior to or following the activity. 4-Supervision or Touching Assistance-helper provides verbal cues and/or touching/steadying and/or contact guard assistance as patient completes activity. Assistance may be provided throughout the activity or intermittently. 3-Partial/Moderate Assistance-helper does LESS THAN HALF the effort. Agency lifts, holds or supports trunk or limbs, but provides less than half the effort. 2-Substantial/Maximal Assistance-helper does MORE THAN HALF the effort. Agency lifts or holds trunk or limbs and provides more than half the effort. 7-Cxramhchh-uxgrog does ALL the effort. Patient does none of the effort to complete the activity. Or, the assistance of 2 or more helpers is required for the patient to complete the activity. If activity was not attempted, code reason: 7-Patient Refused. 9-Not Applicable-not attempted and the patient did not perform the activity before the current illness, exacerbation or injury. 10-Not Attempted due to Environmental Limitations-(lack of equipment, weather restraints, etc.). 88-Not Attempted due to Medical Conditions or Safety Concerns. ADL PLOF Comments Pt states IND with I/ADLs (though assist with lawn care), use of walker at times (post-falls for few days per pt). Self Care: Independent Functional Cognition: Independent DME/Equipment: Bath Chair, Grab Bars, Reachers, Shower DME/Equipment Comments 4WW, sc, walk in shower, gb Occupation: retired. Drive Self: Yes OT Current Status Subjective Pt seen in recliner. Pt denies pain at this time, then later states min pain in low back. Pt oriented/ alert, though has minimal word finding difficulties through session. pt agrees to OT eval/ treat, desiring sponge bath. Mental Status/Objective Patient Orientation: Person, Place, Situation, Normal For Age Current Glasses/Contacts: Yes Hearing Aids: No Dentures/Partials: Yes Hand Dominance: Right Upper Extremity ROM WFL BUE Upper Extremity Coordination WFL BUE Upper Extremity Sensation WFL BUE Upper Extremity Strength WFL BUE (4/5 bilaterally) ADL-Treatment Eating (QC): 6 Shower/Bathe Self (QC): 3 (Pt completes UB washing with s/u, LB with min A with education on LHS for use of R LE cleaning, bottom hygiene with max A as pt unable to bring hands from walker due to pain. ) Upper Body Dressing (QC): 5 (s/u) Lower Body Dressing (QC): 3 (Based on presentation and clinical judgment, pt would require assist threading R hole over foot. Pt educated on AE for use of LB dressing/ doffing tasks.) On/Off Footwear (QC): 3 (min A (RLE doffing/ donning)Pt educated on dressing stick for doffing/ sock aide for donning. Pt return demosntrates on LLE due to pain (s/u)) Toileting Hygiene (QC): 3 (mod A bottom hygiene per clinical judgment based on pain level and balance. ) Other Treatments Pt seen in recliner. Pt educated on OT role/ therapy purpose. Pt agrees to OT eval/ treat. Pt agrees to sponge bath, stating she washed bottom earlier with nurse aide (max A) and desires to wash UB/ LB. Pt doffs L sock in sit, unable to complete RLE. Pt educated on AE: return demonstrates with mod cues. Pt completes LB washing in chair with assist with R leg. Pt stands with min A at 2WW level (unable to take hands from walker level to wash bottom). pt doffs gown from bottom, returns to sit. Pt doffs overhead gown, pt washes UB with s/u. Pt dresses in gown, returns legs to elevated state, all needs met, call light in reach. Pt educated on continued OT for pain management, fx activity endurance/ UE strengthening and balance. Pt agrees. Education OT Patient Education: Correct positioning, Modified ADL techniques, Purpose of tx/functional activities, Reviewed precautions, Transfer techniques, Use of adapted equipment Teaching Recipient: Patient Teaching Methods: Demonstration, Discussion Response to Teaching: Verbalize Understanding, Return Demonstration, Reinf orcement Needed OT Automotive Service Assistant Goals Automotive Service Assistant Goals Time Frame: Mar 08, 2020 Eating (QC): 6 Oral Hygiene (QC): 6 Toileting Hygiene (QC): 3 Shower/Bathe Self (QC): 4 Upper Body Dressing (QC): 6 Lower Body Dressing (QC): 4 On/Off Footwear (QC): 6 Additional Goals: 1-Demonstrate ADL Tasks, 2-Verbalize Understanding, 3- ImproveStrength/Jose 1=Demonstrate adherence to instructed precautions during ADL tasks. 2=Patient will verbalize/demonstrate understanding of assistive devices/modifications for ADL. 3=Patient will improve strength/tolerance for activity to enable patient to perform ADL's. OT Education/Plan Problem List/Assessment Assessment: Decreased Activ Tolerance, Dependent Transfers, Impaired Bed Mobility, Impaired Funct Balance, Impaired I ADL's, Impaired Self-Care Skills Discharge Recommendations Plan/Recommendations: Continue POC Therapy Discharge Recommendati: 24 Hour Supervision Equpiment Recommendations-D/C: Hip Kit Treatment Plan/Plan of Care Treatment,Training & Education: Yes Patient would benefit from OT for education, treatment and training to promote independence in ADL's, mobility, safety and/or upper extremity function for A DL's. Plan of Care: ADL Retraining, Functional Mobility, UE Funct Exercise/Act Treatment Duration: Mar 08, 2020 Frequency: 5 times per week Estimated Hrs Per Day: .25 hour per day Agreement: Yes Rehab Potential: Fair Time/GCodes Start Time: 11:10 Stop Time: 11:45 Total Time Billed (hr/min): 35 Billed Treatment Time 1, EVM, ADL (35) MAKEDA HERZOG OTR Mar 01, 2020 12:05
--- NOTE | 2020-03-01 14:10 | NUR ---
LORTAB PO FOR PAIN.
[2020-03-01 15:33] VITALS: BP 100/53
--- NOTE | 2020-03-01 15:55 | NUR ---
"RD ASSESSMENT PMHx: hypercholesterolemia; HTN; renal failure; GERD PT INTERACTION: Pt was awake and pleasant during nutrition assessment. Note pt was confused at times and had to be redirected during conversation. Pt states current appetite is poor. Note avg PO intake 25-50% x2d, per chart review. Pt states following a regular diet at home and has no issues with chewing/swallowing food. Pt states recent issues with nausea, vomiting, and constipation, and that her last BM was 02/26. Note pt currently on bowel regimen of colace qd, per chart review. Pt states recent wt loss, but unsure of amount/timeframe. Note unable to determine recent wt hx, per chart review. ABNORMAL NUTRITION-RELATED LAB VALUES LOW: Ca 8.4; HIGH: glu 116 Est. kcal needs: 1600 kcal | 25 kcal/kg Est. Pro needs: 51 g Pro | 0.8 g Pro/kg PES STATEMENT: Inadequate oral intake (NI-2.1) related to loss of appetite | nausea | vomiting | constipation as evidenced by pt interview | avg PO intake 25-50% x2d INTERVENTION: Continue with current diet order of Regular diet. Add Ensure Enlive (vary) to meals TID, for increased kcal intake. Provides 350 kcal and 13 g Pro per serving. Will continue to follow and reassess as pt needs, intake, and status change. MONITOR/EVALUATE: PO Intake; Plan of Care; Hydration Status; Weight Status; Lab Values Arturo Villanueva, MS, RD, LD"
[2020-03-01] MEDS: amLODIPine 2.5MG (NORVASC) TAB PO SCH (17:55)
[2020-03-02 00:35] VITALS: BP 118/65
[2020-03-02 08:00] VITALS: BP 144/75
[2020-03-02] MEDS ORDERED: HYDR-3812 PO (08:22)
[2020-03-02] MEDS ORDERED: MV-M1TAB20 PO (08:22)
[2020-03-02] MEDS ORDERED: DOCU100C37 PO (08:22)
--- NOTE | 2020-03-02 08:24 | Discharge Inst-Skilled Nursing ---
Discharge Inst-Skilled NF Reconcile Patient Problems Problems Reviewed?: Yes Patient Instructions Patient Problems: PELVIC FRACTURE Goal: HOME WITH HOME HEALTH Consult/Follow Up/Orders Follow Up Appt.: 1 WEEK [facility] Skilled NF Admit to: [facility] (SNF) I certify that SNF services are required to be given on an inpatient basis because of the above named patient's need for [facility] care on a continuing basis for the conditions(s) for which he/she was receiving inpatient hospital services prior to his/her transfer to the SNF. Half-Way Facility Order: Nursing Services, Speaker Mounter-Evaluate & Treat, Physical Therapy-Evaluate & Treat Oxygen Delivery Method: Room Air Discharge Diet: Regular Diet Daily Activity as Tolerated: Yes Resuscitation Status: Full Code New & Resume Previous Orders New & Resume Previous Orders Active Scripts Active Vitamin D3 Complete Caplet (Mv-Mn/Iron/FA/Herbal Cmplx#190) 1 Each Tablet 1 Each PO DAILY Hydrocodone-Acetamin 5-325 mg (Hydrocodone/Acetaminophen) 1 Each Tablet 1 Tab PO Q4H PRN Docusate Sodium 100 Mg Capsule 100 Mg PO BID Reported Megared [place]-3 Krill Oil Sfgl (Krill/Om-3/Dha/Epa/Phospho/Ast) 1 Each Capsule 1 Each PO DAILY Turmeric (Turmeric Root Extract) 538 Mg Capsule 538 Mg PO DAILY Calcium Carbonate 600 Mg Tablet 600 Mg PO DAILY Tylenol Arthritis (Acetaminophen) 650 Mg Tablet.er 650 Mg PO Q8H PRN Melatonin 3 Mg Tablet 3 Mg PO HS Multivitamin 1 Each Tablet 1 Each PO DAILY Amlodipine Besylate 5 Mg Tablet 2.5 Mg PO 1800 TAKES OF A 5MG TAB Aspirin EC (Aspirin) 81 Mg Tablet.dr 81 Mg PO 1800 Lisinopril 20 Mg Tablet 20 Mg PO BID Pantoprazole Sodium 40 Mg Tablet. 40 Mg PO DAILY Diclofenac Sodium 100 Gm Gel..gram. 1 Applic TOP QID PRN Alendronate Sodium 70 Mg Tablet 70 Mg PO SUNDAY Fluoxetine HCl 20 Mg Capsule 20 Mg PO BID Atorvastatin Calcium 20 Mg Tablet 20 Mg PO HS Meena Pruitt Mar 02, 2020 08:23 Pneu Vac Indicated: Yes MEENA PRUITT MD Mar 02, 2020 08:24
[2020-03-02] MEDS: DOCUSATE SODIUM 100 MG (COLACE) CAP PO SCH (08:35)
[2020-03-02] MEDS: FLUoxetine HCL 20 MG (PROzac) CAP PO SCH (08:35)
[2020-03-02] MEDS: lisINopril 20 MG (PRINIVIL) TABLET PO SCH (08:35)
[2020-03-02] MEDS: PANTOPRAZOLE 40 MG (PROTONIX) TAB PO SCH (08:35)
[2020-03-02] MEDS: HYDROcodone/APAP 5 MG/325 MG (LORTAB) TAB PO PRN (08:43)
--- NOTE | 2020-03-02 08:56 | Occupational Ther Daily Note ---
OT Current Status-Daily Note Subjective Pt seen in recliner chair. Pt alert/ oriented, states does not remember working with OT yesterday. pt given cues as to what pt completed, pt able to remember sponge bath, states does not remember other topics of conversation. pt states she has had a lot of people in/out and is having hard time remembering spec ifics. Pt agrees to OT tx session; pt states she desires pain pill. When asked what pain rating is pt states, "I don't want to think about it." DO enters during session, states pt to d/c to SNF this date. Mental Status/Objective Patient Orientation: Person, Place, Situation ADL-Treatment Therapy Code Descriptions/Definitions Functional [place] Measure: 0=Not Assessed/NA 4=Minimal Assistance 1=Total Assistance 5=Supervision or Setup 2=Maximal Assistance 6=Modified [place] 3=Moderate Assistance 7=Complete IndependenceSCALE: Activities may be completed with or without assistive devices. 2-Bfifpgsnke-vpmaypx completes the activity by him/herself with no assistance from a helper. 5-Set-up or Clean-up Assistance-helper sets up or cleans up; patient completes activity. [place] assists only prior to or following the activity. 4-Supervision or Touching Assistance-helper provides verbal cues and/or touching/steadying and/or contact guard assistance as patient completes activity. Assistance may be provided throughout the activity or intermittently. 3-Partial/Moderate Assistance-helper does LESS THAN HALF the effort. [place] lifts, holds or supports trunk or limbs, but provides less than half the effort. 2-Substantial/Maximal Assistance-helper does MORE THAN HALF the effort. [place] lifts or holds trunk or limbs and provides more than half the effort. 5-Pxppanuwo-bufrxw does ALL the effort. Patient does none of the effort to complete the activity. Or, the assistance of 2 or more helpers is required for the patient to complete the activity. If activity was not attempted, code reason: 7-Patient Refused. 9-Not Applicable-not attempted and the patient did not perform the activity before the current illness, exacerbation or injury. 10-Not Attempted due to Environmental Limitations-(lack of equipment, weather restraints, etc.). 88-Not Attempted due to Medical Conditions or Safety Concerns. Eating (QC): 6 Shower/Bathe Self (QC): 7 (denies showering.) Other Treatment Pt completes AROM of BUE- completes horizontal ab/ adduction, shoulder flexion/ extension. Pt states slight "tightness" in R shoulder. Pt educated on sprain and WBAT/ completing AROM in tolerable range. Pt completes UE theraband ex with yellow theraband, no R shoulder resistance initiated. Pt given positional/ tension skilled cues for task completion and success for HEP, completing B bicep curls, B tricep extensions, L shoulder flexion. Pt encouraged to complete additional resistance within tolerable range to build up functional endurance/ strength for tasks/ fx mob. Pt agrees, all needs met, call light in reach, nursing present for medication management. Education OT Patient Education: Correct positioning, Exercise program, Home exercise program Teaching Recipient: Patient Teaching Methods: Demonstration, Discussion Response to Teaching: Verbalize Understanding, Return Demonstration, Reinforcement Needed OT Long-Term Goals Elementary Teacher Goals Time Frame: Mar 08, 2020 Eating (QC): 6 Oral Hygiene (QC): 6 Toileting Hygiene (QC): 3 Shower/Bathe Self (QC): 4 Upper Body Dressing (QC): 6 Lower Body Dressing (QC): 4 On/Off Footwear (QC): 6 Additional Goals: 1-Demonstrate ADL Tasks, 2-Verbalize Understanding, 3- ImproveStrength/Jose 1=Demonstrate adherence to instructed precautions during ADL tasks. 2=Patient will verbalize/demonstrate understanding of assistive devices/modifications for ADL. 3=Patient will improve strength/tolerance for activity to enable patient to perform ADL's. OT Education/Plan Problem List/Assessment Assessment: Decreased Activ Tolerance, Decreased UE Strength, Dependent Transfers, Impaired Funct Balance, Impaired I ADL's, Impaired Self-Care Skills Discharge Recommendations Plan/Recommendations: Continue POC Therapy Discharge Recommendati: 24 Hour Supervision, Post Acute OT Equpiment Recommendations-D/C: Hip Kit Treatment Plan/Plan of Care Treatment,Training & Education: Yes Patient would benefit from OT for education, treatment and training to promote independence in ADL's, mobility, safety and/or upper extremity function for ADL's. Plan of Care: ADL Retraining, Functional Mobility, UE Funct Exercise/Act Treatment Duration: Mar 08, 2020 Frequency: 5 times per week Estimated Hrs Per Day: .25 hour per day Agreement: Yes Rehab Potential: Fair Time/GCodes Start Time: 08:30 Stop Time: 08:43 Total Time Billed (hr/min): 13 Billed Treatment Time 1, EX (13) MAKEDA HERZOG OTR Mar 02, 2020 08:56
--- NOTE | 2020-03-02 09:26 | Discharge Summary ---
Diagnosis/Chief Complaint Date of Admission Feb 28, 2020 at 01:58 Date of Discharge Discharge Date: Mar 02, 2020 Discharge Time: 0930 Admission Diagnosis Admission Diagnosis FALL AT HOME OUT OF DOORS RIGHT PELVIC FRACTURE RIGHT SACRAL FRACTURE HYPERTENSION ESOPHAGEAL REFLUX OSTEOARTHRITIS OSTEOPOROSIS DEPRESSION CONSTIPATION Discharge Diagnosis FALL AT HOME OUT OF DOORS RIGHT PELVIC FRACTURE RIGHT SACRAL FRACTURE HYPERTENSION ESOPHAGEAL REFLUX OSTEOARTHRITIS OSTEOPOROSIS DEPRESSION CONSTIPATION Reason Hospital Visit 75 yo F fell last night due to unlevel concrete- she was watering her plants and tripped and fell. She reports she has lived at her current house for 8 years with no falls; until this year. She has fallen a couple times mostly from tripping. Denies any aura or prodrome that would suggest she is going to pass out/fall. She hurt her left wrist previously and was told she had osteopenia. Her right hip was hurting her 3 weeks ago and she was given antiinflammatory cream to put on it. It has helped some. Patient this AM was not wanting PT/OT to come today. She just wants to rest in her room. She is considering going to live with her daughter in . Discharge Summary Consultations GENERAL SURGERY ORTHOPEDIC SURGERY Discharge Physical Examination Allergies: Coded Allergies: Penicillins (Unverified Allergy, Intermediate, ITCHING ALL OVER, 06/06/16) Sulfa (Sulfonamide Antibiotics) (Unverified Allergy, Unknown, ITCHINESS TO LEGS, 02/27/14) sucralfate (Unverified Allergy, Unknown, 02/28/20) Vitals & I&Os Vital Signs Date Time Temp Pulse Resp B/P (MAP) Pulse Ox O2 Delivery O2 Flow Rate FiO2 03/02/20 08:00 36.8 99 18 144/75 (98) 99 Room Air General Appearance: Alert, Oriented X3, Cooperative, No Acute Distress HEENT: Atraumatic, PERRLA, Mucous Memb Moist/[place] Respiratory: Clear to Auscultation, Normal Air Movement Cardiovascular: Regular Rate Abdominal: Normal Bowel Sounds, Soft, No Tenderness Extremities: No Clubbing, No Cyanosis, No Edema Skin: No Breakdown Neuro: Cranial Nerves 3-12 NL Psych/Mental Status: Mental Status NL, Mood NL Hospital Course Was the Problem List Reviewed?: Yes FALL AT HOME OUT OF DOORS RIGHT PELVIC FRACTURE RIGHT SACRAL FRACTURE HYPERTENSION ESOPHAGEAL REFLUX OSTEOARTHRITIS OSTEOPOROSIS DEPRESSION CONSTIPATION FALL AT HOME OUT OF DOORS WITH SUSTAINED RIGHT PELVIC FRACTURE AND RIGHT SACRAL FRACTURE - PT'S FRACTURES ARE STABLE AND ARE NON-SURGICAL IN NATURE - WILL REQUIRE TIME FOR HEALING. - PT IS NOT ABLE TO SAFELY BE DISCHARGED TO HOME DUE TO HER PAIN AND LACK OF HELP IN THE HOME. - DISCHARGE TO [facility] FOR THERAPY, STRENGTHENING, AND STABILIZATION OF SYMPTOMS AND PAIN CONTROL. - DISCHARGE WITH HYDROCODONE PRN - USE FOR PAIN CONTROL HYPERTENSION - RESUME HOME REGIMEN ESOPHAGEAL REFLUX - RESUME ACID CONTROL OSTEOPOROSIS - RESUME BISPHOSPHONATE THERAPY, CALCIUM AND VITAMIN D DEPRESSION - RESUME SSRI CONSTIPATION - COLACE SCHEDULED DUE TO USE OF PAIN MEDICATION. PT TO BE DC'D TODAY WITH PLANS FOR PT TO GAIN STRENGTH, PAIN CONTROL, AND EVENTUALLY ONCE STABLE AND STRONGER, DISCHARGE TO HOME WITH HOME HEALTH. Discharge Condition at discharge IMPROVING/STABLE Instructions to patient/family Please see electronic discharge instructions given to patient. Discharge Medications Reviewed and agree with Discharge Medication list on patient's Discharge Instruction sheet Clinical Quality Measures DVT/VTE Risk/Contraindication: Risk Factor Score Per Nursin RFS Level Per Nursing on Admit: 4+=Very High MEENA RIVERA MD Mar 02, 2020 09:26
--- NOTE | 2020-03-02 09:26 | NUR ---
CM/SS finalized discharge. Plan: The patient will discharge to [facility] today 03/02. CM/SS contacted Chey from the facility to inform them that this sw faxed finalized discharge orders. They have arranged for transportation at 10:30-11:00 a.m. CM/SS notified the patient and nurse. DESIRE/SS asked the patient if she wanted this sw to call and notify family. She stated she would be able to notify them because they call. No further needs at this time.
[2020-03-02] MEDS: ENOXAPARIN 40 MG/0.4 ML (LOVENOX) SYR SC SCH (10:15)
--- NOTE | 2020-03-02 10:17 | Physical Therapy Daily Note ---
PT Daily Note-Current Subjective Patient on commode. Agrees to PT. Pain Numeric Pain Scale: 10-Worst Possible Pain Location: Right Location Body Site: Pelvic Pain Description: Acute Mental Status Patient Orientation: Normal For Age Transfers SCALE: Activities may be completed with or without assistive devices. 1-Khoklchcda-pzsxuyp completes the activity by him/herself with no assistance from a helper. 5-Set-up or Clean-up Assistance-helper sets up or cleans up; patient completes activity. Howard assists only prior to or following the activity. 4-Supervision or Touching Assistance-helper provides verbal cues and/or touching/steadying and/or contact guard assistance as patient completes activity. Assistance may be provided throughout the activity or intermittently. 3-Partial/Moderate Assistance-helper does LESS THAN HALF the effort. Howard lifts, holds or supports trunk or limbs, but provides less than half the effort. 2-Substantial/Maximal Assistance-helper does MORE THAN HALF the effort. Howard lifts or holds trunk or limbs and provides more than half the effort. 7-Vvplitgbc-qcjcrx does ALL the effort. Patient does none of the effort to complete the activity. Or, the assistance of 2 or more helpers is required for the patient to complete the activity. If activity was not attempted, code reason: 7-Patient Refused. 9-Not Applicable-not attempted and the patient did not perform the activity before the current illness, exacerbation or injury. 10-Not Attempted due to Environmental Limitations-(lack of equipment, weather restraints, etc.). 88-Not Attempted due to Medical Conditions or Safety Concerns. Sit to Stand (QC): 3 Chair/Hnq-ow-Bciht Xfer(QC): 3 Weight Bearing Right Lower Extremity: Right Weight Bearing/Tolerated Left Lower Extremity: Left Full Weight Bearing Gait Training Does the Patient Walk?: No and Walking Goal IS indicated Distance: 3 steps Gait Assistive Device: FWW Patient attempted to ambulate, however, pain limits this task Exercises Seated Therapy Exercises: Ankle pumps, Long arc quads Seated Reps: 15 (2 sets) Assessment Patient tolerates minimal activity and will transfer to [place] for continued care on this date. PT Detention Goals Forge Operator Goals PT Forge Operator Goals Time Frame: Mar 13, 2020 Roll Left & Right (QC): 5 Sit to Lying (QC): 5 Lying-Sitting on Side/Bed(QC): 5 Sit to Stand (QC): 5 Chair/Rod-cm-Evhlw Xfer(QC): 5 Toilet Transfer (QC): 5 Does the Patient Walk: Yes Walk 10 feet (QC): 5 Walk 50ft with 2 Turns (QC): 5 PT Plan Treatment/Plan Treatment Plan: Discontinue PT Treatment Plan: Bed Mobility, Education, Functional Activity Jose, Functional Strength, Gait, Safety, Therapeutic Exercise, Transfers Treatment Duration: Mar 13, 2020 Frequency: 6 times per week Estimated Hrs Per Day: .25 hour per day Patient and/or Family Agrees t: Yes Time/GCodes Time In: 940 Time Out: 949 Total Billed Treatment Time: 9 Total Billed Treatment 1 visit EX 9 min KRISTEL RAMOS PT Mar 02, 2020 10:17
[2020-03-02 10:26] VITALS: BP 144/75
--- NOTE | 2020-03-02 10:28 | Physician Query Clarification ---
PQ-Further Specificity Admission/Discharge Admission Date: Feb 28, 2020 at 01:58 Discharge Date: The medical record reflects the following clinical scenario: History/Risk Factors: Right superior and inferior pubic ramus fractures Right sacral fracture Osteoporosis/Osteopenia Tripping with fall on cement pad in yard at home Clinical Findings:Osteopenia documented by Dr. Nitish Villalba and osteoporosis documented by you and treated with bisphosphonate therapy, Calcium and Vitamin D. Treatment: Pain management with Fentanyl Citrate 25mcg, Lortab 5mg, PT/OT. Question: Can you further specify Sacral and Pubic fractures per the clinical indicators above? Please document a response in the Progress Notes or Discharge Summary. 1. Pathologic fractures of sacrum and pubis due to osteoporosis. 2. Traumatic fractures of sacrum and pubis due to fall. 3. Other, with explanation of the clinical findings. 4. Clinically undetermined, no explanation for the clinical findings. PHYSICIAN RESPONSE Can you specify per above: 2 Please remember a lack of response to the above will prompt a phone page by CDI/Coding staff. In responding to this query, please exercise your independent professional judgment. The purpose of this communication is to more accurately reflect the complexity of your patients condition. The fact that a question is asked does not imply that any particular answer is desired or expected. Thank you for your timely response to this clarification. Requestors name: Evie Gutierrez [facility] Phone # ext [phone] or [phone] THIS PHYSICIAN QUERY FORM IS A PERMANENT PART OF THE MEDICAL RECORD EVIE GUTIERREZ Mar 02, 2020 10:28 MEENA RIVERA MD Mar 17, 2020 11:57
--- NOTE | 2020-03-02 10:56 | NUR ---
REPORT CALLED TO GEOVANNA CUMMINGS AT [facility]
--- NOTE | 2020-03-02 11:15 | NUR ---
VENECIA KUMAR discharged to [facility]. FAMILY notified of discharge and report given to GEOVANNA. VENECIA KUMAR belongings sent with PT. Skin dry and intact; no breakdown noted. . Vital signs are stable at time of discharge. Condition is stable at time of discharge. Discharge instructions and copies of H&P, discharge summary, physician's order, lab reports, consultation reports, other dictated reports, diagnostic imaging reports, Advance Directive, eMAR, vital signs, intake and output sent with PT. Patient discharged from [facility] on 03/02/20 at 1115. VENECIA KUMAR left floor via WC, accompanied by STAFF. VENECIA KUMAR and family/DPOA notified and verbalize understanding of discharge to [facility].
--- NOTE | 2020-03-02 11:18 | Progress Note - Ortho ---
Progress Note Subjective Date of Exam 03/02/20 Chief Complaint Pelvis fracture HPI/Events since last exam Mrs. Portillo is 4 days since fracture of the superior and inferior pubic rami on the right and sacral fracture on the right. She has been up ambulating with a walker with continued pain in the right pelvis and hip region. It is slowly improving. He is putting some weight on the leg but not full weightbearing. When I saw her she was up sitting in a chair and was comfortable. She does have quite a bit of pain transferring from bed to chair Review of Systems No additions or changes Allergies: Coded Allergies: Penicillins (Unverified Allergy, Intermediate, ITCHING ALL OVER, 06/06/16) Sulfa (Sulfonamide Antibiotics) (Unverified Allergy, Unknown, ITCHINESS TO LEGS, 02/27/14) sucralfate (Unverified Allergy, Unknown, 02/28/20) Home Meds Active Scripts Mv-Mn/Iron/FA/Herbal Cmplx#190 (Vitamin D3 Complete Caplet) 1 Each Tablet, 1 EACH PO DAILY, #30 TAB 3 Refills Prov:MEENA RIVERA MD 03/02/20 Hydrocodone/Acetaminophen (Hydrocodone-Acetamin 5-325 mg) 1 Each Tablet, 1 TAB PO Q4H PRN for PAIN-MODERATE (5-7), #90 TAB Prov:MEENA RIVERA MD 03/02/20 Docusate Sodium (Docusate Sodium) 100 Mg Capsule, 100 MG PO BID, #60 CAP 3 Refills Prov:MEENA RIVERA MD 03/02/20 Reported Medications Krill/Om-3/Dha/Epa/Phospho/Ast (Megared [place]-3 Krill Oil Sfgl) 1 Each Capsule, 1 EACH PO DAILY, CAP 03/01/20 Turmeric Root Extract (Turmeric) 538 Mg Capsule, 538 MG PO DAILY, CAP 03/01/20 Calcium Carbonate (Calcium Carbonate) 600 Mg Tablet, 600 MG PO DAILY, TAB 03/01/20 Acetaminophen (Tylenol Arthritis) 650 Mg Tablet.er, 650 MG PO Q8H PRN for PAIN- MILD (1-4), TAB 03/01/20 Melatonin (Melatonin) 3 Mg Tablet, 3 MG PO HS, TAB 03/01/20 Multivitamin (Multivitamin) 1 Each Tablet, 1 EACH PO DAILY, TAB 03/01/20 Amlodipine Besylate (Amlodipine Besylate) 5 Mg Tablet, 2.5 MG PO 1800, TAB TAKES OF A 5MG TAB 03/01/20 Aspirin (Aspirin EC) 81 Mg Tablet.dr, 81 MG PO 1800, TAB 03/01/20 Lisinopril (Lisinopril) 20 Mg Tablet, 20 MG PO BID, TAB 02/27/20 Pantoprazole Sodium (Pantoprazole Sodium) 40 Mg Tablet.dr, 40 MG PO DAILY, TAB 02/27/20 Diclofenac Sodium (Diclofenac Sodium) 100 Gm Gel..gram., 1 APPLIC TOP QID PRN for PAIN-BREAKTHROUGH, TUBE 02/27/20 Alendronate Sodium (Alendronate Sodium) 70 Mg Tablet, 70 MG PO SUNDAY, TAB 02/27/20 Fluoxetine HCl (Fluoxetine HCl) 20 Mg Capsule, 20 MG PO BID, CAP 02/27/20 Atorvastatin Calcium (Atorvastatin Calcium) 20 Mg Tablet, 20 MG PO HS, TAB 02/27/20 Discontinued Reported Medications Dicyclomine HCl (Dicyclomine HCl) 20 Mg Tablet, 20 MG PO TID, TAB 06/06/16 Docusate Sodium (Colace) 100 Mg Capsule, 200 MG PO 1900 02/27/14 Vitamin E Mixed (VITAMIN E) 400 Unit Tablet, 400 UNIT PO DAILY 02/27/14 Fish Oil/Dha/Epa (Fish Oil 1,200 Mg Fish Oil) 1 Each Capsule, 1 CAP PO DAILY 02/27/14 Calcium Carb & Cit/Vitamin D3 (CALCIUM + VITAMIN D3 CAPLET) 1 Each Tablet.er, 1 TAB PO BID 630MG/500IU 02/27/14 Cyanocobalamin (Vitamin B-12) 1,000 Mcg Tab.subl, 1000 MCG SL DAILY 02/27/14 Pyridoxine Hcl (Vitamin B-6) 100 Mg Tablet, 100 MG PO 1900 02/27/14 Simvastatin (Simvastatin) 80 Mg Tablet, [place] [address]/27/14 Metoprolol Tartrate (Metoprolol Tartrate 50 Mg) 50 Mg Tablet, 25 MG PO BID 02/27/14 Amlodipine Besylate (Amlodipine Besylate) 5 Mg Tablet 02/27/20 Dexlansoprazole (Dexilant) 60 Mg Cap..bp, 60 MG PO DAILY 06/06/16 Bupropion Hcl (Bupropion Hcl Sr) 200 Mg Tablet.sa, 200 MG PO BID 02/27/14 Discontinued Scripts Hydrocodone Bit/Acetaminophen (LORTAB 5 MG TABLET) 1 Each Tablet, 1 TAB PO Q6H PRN for PAIN-MODERATE TO SEVERE MDD 10, #15 TAB Prov:KETTY NELSON MD 11/10/18 Prednisone (Prednisone) 20 Mg Tab, 20 MG PO DAILY, #6 TAB 0 Refills Prov:ANTONETTE ALMARAZ MD 11/06/17 Objective Exam Constitutional: [] HEENT: [] Neck: [] Cardiovascular: [] Respiratory: [] Gastrointestinal: [] Genitourinary: [] Skin: [] Back/Spine: [Pain over the sacrum and right sacroiliac joint] Extremities: [] Pain over the right anterior pelvis and lateral right hip over the greater trochanter with palpation and gentle range of motion of the hip. Neurologic: [] Psychiatric: [] Hematologic/lymphatic/immunologic: [] Vital Signs Vital Signs Date Time Temp Pulse Resp B/P (MAP) Pulse Ox O2 Delivery O2 Flow Rate FiO2 03/02/20 10:26 36.8 99 18 144/75 99 Room Air 03/02/20 08:00 Room Air 03/02/20 08:00 36.8 99 18 144/75 (98) 99 Room Air 03/02/20 00:35 36.6 82 14 118/65 (82) 95 Room Air 03/01/20 20:00 Room Air 03/01/20 15:33 36.7 72 18 100/53 (69) 95 Room Air I & O 03/02/20 07:00 Intake Total 800 ml Output Total 300 ml Balance 500 ml Assessment and Plan Assessment Slowly improving Problem List Unchanged Plan Continue with walker ambulation, weightbearing as tolerated on the right. Patient told me today that she is being transferred to a retirement or rehabilitation facility in [place]. She will need follow-up x-rays in approximately 7-10 days Final Diagonsis Fracture right. Inferior pubic rami and right sacrum involving the sacroiliac joint Level of the visit: Level 3 Clinical Quality Measures DVT/VTE Risk/Contraindication: Risk Factor Score Per Nursin RFS Level Per Nursing on Admit: 4+=Very High PAWAN DICKENS MD Mar 02, 2020 11:18
== END 2020-03-02 11:15 | DRG 965 ==
LOC: EDUNIT# 21:38 → ER 21:39 → INTOOBSV 02-28 01:58 → 4TH 02-28 01:58 → UNDOADMOB 02-28 01:58 → 4TH 02-28 01:58 → OBSVTOIN 02-28 01:58 → UNDODISIN 03-02 11:15
PROVIDERS: ADMIT Family Medicine; ATTEND Family Medicine
DX: S32.591A Other specified fracture of right pubis, initial encounter for closed fracture (principal); S36.892A Contusion of other intra-abdominal organs, initial encounter; S32.19XA Other fracture of sacrum, initial encounter for closed fracture; S43.401A Unspecified sprain of right shoulder joint, initial encounter; M54.5 Low back pain; M70.61 Trochanteric bursitis, right hip; J44.9 Chronic obstructive pulmonary disease, unspecified; I12.9 Hypertensive chronic kidney disease with stage 1 through stage 4 chronic kidney disease, or unspecified chronic kidney disease; N18.3 Chronic kidney disease, stage 3 (moderate); E78.00 Pure hypercholesterolemia, unspecified; K21.9 Gastro-esophageal reflux disease without esophagitis; M19.91 Primary osteoarthritis, unspecified site; M81.0 Age-related osteoporosis without current pathological fracture; F32.9 Major depressive disorder, single episode, unspecified; J30.2 Other seasonal allergic rhinitis; K59.09 Other constipation; Z91.81 History of falling; F34.1 Dysthymic disorder; Z87.11 Personal history of peptic ulcer disease; Z96.652 Presence of left artificial knee joint; Z87.891 Personal history of nicotine dependence; W01.0XXA Fall on same level from slipping, tripping and stumbling without subsequent striking against object, initial encounter; Y92.007 Garden or yard of unspecified non-institutional (private) residence as the place of occurrence of the external cause
CPT/HCPCS: 36415; 51702; 72131; 72170; 72192; 73030; 80048; 81000; 85025; 94664; 96374; 96375; 96376

== ENCOUNTER → 2021-09-27 | Outpatient (CLI) | payer MEDICARE, OTHER ==
[~2021-09-27] MED LIST changes: +ACET-2650 PO; +ALEN70TA80 PO; +AMLO-250; +AMLO-250 PO; +ASPI-1238 PO; +ATOR20TA66 PO; +CALC600T80 PO; +DICL100G13 TOP; +DICY20TA PO; -DICY20TA10 PO; +DOCU100C37 PO; +FLUO20CA48 PO; +KRIL1CAP22 PO; +LISI20TA26 PO; +MELA3TAB39 PO; +MULT-1136 PO; +MV-M1TAB20 PO; +PANT40TA52 PO; +TURM538C PO
--- NOTE | 2021-09-27 11:42 | Diagnostic Imaging Report ---
INDICATION: 76-year-old postmenopausal female. COMPARISON: 06/24/2019 FINDINGS: AP Spine L1-L4: [BMD (g/cm2): 0.950] [T-Score: -2.1] [Z-Score: 0.0] [BMD Previous: 0.914] [BMD % Change: 3.9] LT Hip Neck: [BMD (g/cm2): 0.648] [T-Score: -2.8] [Z-Score: -0.6] LT Hip Total: [BMD (g/cm2):0.702] [T-Score:-2.4] [Z-Score: -0.4] [BMD Previous: 0.692] [BMD % Change: 1.4] RT Hip Neck: [BMD (g/cm2):0.658] [T-Score:-2.7] [Z-Score:-0.6] RT Hip Total: [BMD (g/cm2):0.694] [T-score:-2.5] [Z-Score:-0.5] [BMD Previous:0.692] [BMD % Change:0.3] *Indicates significant change from prior examination based on 95% confidence level. World Health Organization criteria for BMD interpretation classify patients as Normal (T-score at or above -1.0), Osteopenic (T-score between -1.0 and -2.5) or Osteoporotic (T-score at or below -2.5). LIMITATIONS AND MODIFICATION: History of fracture as adult. IMPRESSION: 1. Osteoporosis. 2. No significant change in bone mineral density since prior examination. 3. See below National Osteoporosis Foundation guidelines on when to potentially initiate pharmacologic therapy. Based on the National Osteoporosis Foundation Guidelines, pharmacologic treatment should be initiated in any of the following, unless clinical conditions suggest otherwise: * Any patient with prior fragility fracture of the hip or vertebrae. A spine fracture indicates 5X risk for subsequent spine fracture and 2X risk for subsequent hip fracture. * Osteoporosis (T-score <-2.5). * Postmenopausal women and men age 50 and older with low bone mass/osteopenia (T-score between -1.0 and -2.5) by DXA and 10-year major osteoporotic fracture greater than 20% or a 10-year probability of hip fracture greater than 3%. These fracture risks are supplied above in the FRAX score, if applicable. * Clinician judgement and/or patient preferences may indicate treatment for people with 10-year fracture probabilities above or below these levels. Dictated by: Dictated on workstation # [id number]
== END ==
LOC: RAD 10:00
PROVIDERS: ATTEND Nurse Practitioner Family
DX: M81.0 Age-related osteoporosis without current pathological fracture (principal); Z78.0 Asymptomatic menopausal state
CPT/HCPCS: 77080

== ENCOUNTER → 2021-11-23 | Outpatient (CLI) | payer MEDICARE ==
[~2021-11-23] VITALS: Wt 63.8 kg
[~2021-11-23] MED LIST changes: +DENOSUMAB 60 MG/1 ML (PROLIA) SQ SCH
[2021-11-23 10:08] VITALS: BP 140/61
== END ==
LOC: SDC 09:19
PROVIDERS: ATTEND Nurse Practitioner Family
DX: M81.0 Age-related osteoporosis without current pathological fracture (principal)
CPT/HCPCS: 96372

== ENCOUNTER 2021-12-01 06:38 | Outpatient (CLI) | payer MEDICARE ==
[~2021-12-01] VITALS: Ht 160 cm; Wt 61.2 kg
[~2021-12-01 06:38] MED LIST changes: -DENOSUMAB 60 MG/1 ML (PROLIA) SQ SCH
== END 2021-12-01 09:49 | disposition home or self-care (01) ==
LOC: PREOP 06:38
PROVIDERS: ATTEND Surgery
DX: Z01.818 Encounter for other preprocedural examination (principal)

== ENCOUNTER 2021-12-19 08:43 | Day surgery (SDC) | payer MEDICARE ==
[~2021-12-19] VITALS: Ht 160 cm; Wt 61.2 kg
--- NOTE | 2021-12-19 08:53 | Progress Note-Pre Operative ---
Pre-Operative Progress Note H&P Reviewed The H&P was reviewed, patient examined and no changes noted. Time Seen by Provider: 08:50 Date H&P Reviewed: December 19, 2021 Time H&P Reviewed: 08:50 Pre-Operative Diagnosis: Screening, Chronic Gastritis SONY HERNANDEZ DO December 19, 2021 08:53
[2021-12-19] MEDS ORDERED: LACTATED RINGERS 1,000 ML IV ONE (08:55)
[2021-12-19] MEDS ORDERED: LACTATED RINGERS 1,000 ML IV STA (09:02)
[2021-12-19] MEDS ORDERED: HURRICAINE EXT TUBE (BENZOCAINE) XX PRN (09:15)
[2021-12-19 09:23] VITALS: BP 113/53
[2021-12-19] MEDS ORDERED: PROPOFOL INJECTION 50 ML IV ONE (10:00)
[2021-12-19 10:35] VITALS: BP 110/53
--- NOTE | 2021-12-19 10:38 | Progress Note-Post Operative ---
Post-Operative Progess Note Surgeon (s)/Marker Machine (s) Surgeon SONY HERNANDEZ DO Marker Machine: none Pre-Operative Diagnosis Screening, Chronic Gastritis Post-Operative Diagnosis Gastritis hiatal hernia polyp diverticula int hemorrhoids Procedure & Operative Findings Date of Procedure 12/19/21 Procedure Performed/Findings EGD with bx Colon with snare PROCEDURE NOTE: After informed consent was obtained, the patient was brought to the endoscopy suite, placed in bed in left lateral decubitus position. She was administered IV sedation by the SUCTION ROLLER who then monitored vitals the entire time, heart rate, blood pressure and pulse ox and the scope was inserted down the mouth through the esophagus into the stomach. On the way down, noted some mild esophagitis, took a picture, pushed into the stomach, pushed past the antrum into the duodenum. Duodenum looked good. Pulled back and saw some mild gastritis; did a biopsy of antrum. Then retroflexed the scope, saw hiatal hernia, took a picture of this and then pulled the scope into the GE junction, took another picture of the hiatal hernia and then did a biopsy of the GE junction. Pushed the scope back into the stomach, suctioned all the air out of the stomach. The stomach appeared to be very narrow. At this point pulled the scope up the esophagus and out of the mouth. Switched camera, switched gloves, went down below and started the colonoscopy. Pushed all the way into about 140 cm to get all the way to cecum, took a picture of the appendiceal orifice and noted the ileocecal valve. I also found a small polyp in the cecum, removed with the snare polypectomy. Next slowly withdrew the scope, insufflating to look circumferentially at the dailey starting in the cecum and up the ascending colon. Just outside the cecum I found a large flat polyp; I was able to get all the way around it with the snare. Continued up to the hepatic flexure, then down the transverse colon, splenic flexure, into the descending colon (where I saw some diverticula), down into the sigmoid and finally into the rectum. She also appeared to have very small narrow large bowel and therefore did not retroflex in the rectal vault. However as I removed the scope I did see some minimal internal hemorrhoids and took a picture of this. The patient tolerated the procedure and she recovered in the endoscopy suite. Recommended for repeat colonoscopy in 1 year because of the large ascending colon polyp. Anesthesia Type IV sedation by SUCTION ROLLER Estimated Blood Loss Estimated blood loss (mL): scant Specimens/Packing Specimens Removed antral bx body of stomach bx GE jxn bx cecal polyp asc colon polyp SONY HERNANDEZ DO December 19, 2021 10:38
[2021-12-19 10:40] VITALS: BP 122/62
--- NOTE | 2021-12-19 10:40 | Endoscopy Discharge Instruct ---
Endo Procedure/Findings Findings 1.: Hiatal Hernia, Gastritis 2.: Polyp 3.: Diverticulosis 4.: Internal Hemorrhoids Discharge Instructions - Activity: You might feel a little sleepy until tomorrow. This is due to the medicine you received to relax you. Until tomorrow, you should: NOT drive a car, operate machinery or power tools. NOT drink any alcoholic beverages. NOT make any important decisions or sign importortant papers. Do not return to work until tomorrow, unless otherwise instructed. Resume previous activities tomorrow. Diet: Start by taking liquids. If you tolerate liquids, advance to solid food. 1.: EGD in 3 years 2.: Colonoscopy in 1 year Notify Physician - If you experience excessive bleeding, unusual abdominal pain, fever, or chest pain, contact your doctor immediately. SONY HERNANDEZ DO December 19, 2021 10:40
[2021-12-19 11:05] VITALS: BP 130/63
--- NOTE | 2021-12-19 13:08 | Anesthesia-General Post-Op ---
MAC Patient Condition Mental Status/LOC: Same as Preop Cardiovascular: Satisfactory Nausea/Vomiting: Absent Respiratory: Satisfactory Pain: Controlled Complications: Absent Post Op Complications Complications None Follow Up Care/Instructions Patient Instructions None needed. Anesthesiology Discharge Order Discharge Order Patient is doing well, no complaints, stable vital signs, no apparent adverse anesthesia problems. No complications reported per nursing. ZEHRA TRAYLOR CRNA December 19, 2021 13:08
== END 2021-12-19 11:30 | disposition home or self-care (01) ==
LOC: ENDO 08:43
PROVIDERS: ATTEND Surgery
DX: Z12.11 Encounter for screening for malignant neoplasm of colon (principal); K29.50 Unspecified chronic gastritis without bleeding; B96.81 Helicobacter pylori [H. pylori] as the cause of diseases classified elsewhere; D12.0 Benign neoplasm of cecum; D12.2 Benign neoplasm of ascending colon; K21.00 Gastro-esophageal reflux disease with esophagitis, without bleeding; K44.9 Diaphragmatic hernia without obstruction or gangrene; K57.30 Diverticulosis of large intestine without perforation or abscess without bleeding; K64.8 Other hemorrhoids; Z87.891 Personal history of nicotine dependence; Z79.899 Other long term (current) drug therapy
CPT/HCPCS: 88305; 88342

== ENCOUNTER 2022-01-26 14:01 | Outpatient (RCR) | payer MEDICARE | END 2022-02-02 | disposition home or self-care (01) | LOC: LAB 14:01 → EDSTATUS 14:01 | PROVIDERS: ATTEND Surgery | DX: B96.81 Helicobacter pylori [H. pylori] as the cause of diseases classified elsewhere (principal) | CPT/HCPCS: 36415; 87338 ==